=== PATIENT | female | born 1950 | race Caucasian/White ===

== ENCOUNTER → 2016-06-09 | Outpatient (CLI) | payer MEDICARE, BC ==
--- NOTE | 2016-06-09 13:56 | XR ---
EXAMINATION TYPE: XR foot complete RT DATE OF EXAM: 06/09/2016 1:46 PM COMPARISON: NONE HISTORY: Pain There is diffuse osteopenia involving the second through fifth digits. Vascular calcifications are no tere there is soft tissue edema. Cortical thickening and reaction involving the second and third metat arsals. Hammertoe deformities noted. Severe arthropathy involving the DIP and MTP joint and first digit. Large calcaneal spur and soft tis marjorie calcifications are seen. Possibly tiny foreign body overlying the dorsal surface of the distal ph alanx first digit. May represent a tiny calcification rather than foreign body. IMPRESSION: 1. Diffuse soft tissue edema with no definite acute fracture. Severe arthropathy noted.
== END | disposition home or self-care (01) ==
LOC: RADXRMAIN 13:24
PROVIDERS: ATTEND Family Medicine
DX: R60.0 Localized edema (principal); M79.671 Pain in right foot

== ENCOUNTER 2016-07-23 05:51 | Day surgery (SDC) | payer MEDICARE, BC ==
[2016-07-20 12:37] VITALS: BMI 36.5
[2016-07-23] MEDS ORDERED: SODIUM CHLORIDE 0.9% 1,000 ML IV SCH ×2 (06:06→08:15)
[2016-07-23 06:28] VITALS: TEMP 99.1
[2016-07-23 06:41] LABS: Glucose,Whole Blood 127 mg/dL (75-99)
[2016-07-23] MEDS ORDERED: SODIUM CHLORIDE 0.9% 500 ML IV ONE (07:09)
[2016-07-23] MEDS ORDERED: BENZOCAINE SPRAY 100 APPLIC/CAN MUCOUS MEM ONE ×2 (07:35→07:43)
[2016-07-23] MEDS ORDERED: LIDOCAINE 1% INJ 10MG/ML (20 ML MDV) ONE (07:35)
[2016-07-23] MEDS ORDERED: PROPOFOL 10 MG/ML 20 ML VIAL IV ONE (07:35)
[2016-07-23 08:03] VITALS: RESP 16
[2016-07-23 08:24] VITALS: PULSE 64
[2016-07-23] MEDS ORDERED: LISINOPRIL 10 MG TAB PO SCH (09:00)
[2016-07-23] MEDS ORDERED: metFORMIN 850 MG TAB PO SCH (09:00)
[2016-07-23] MEDS ORDERED: FLECAINIDE 50 MG TAB PO SCH (09:00)
[2016-07-23] MEDS ORDERED: EDOXABAN TOSYLATE 60 MG TABLET PO SCH (09:00)
[2016-07-23] MEDS ORDERED: amLODIPine 10 MG TAB PO SCH (09:00)
[2016-07-23] MEDS ORDERED: ATORVASTATIN 40 MG TAB PO SCH (09:00)
[2016-07-23] MEDS ORDERED: METOPROLOL TARTRATE 50 MG TAB PO SCH (09:00)
[2016-07-23] MEDS ORDERED: NON-FORMULARY DRUG (Aspirin Ec 81 MG) PO SCH (09:00)
[2016-07-23 10:05] VITALS: BP 132/70
--- NOTE | 2016-07-23 11:25 | ECHOT ---
DATE OF SERVICE: PROCEDURE: Transesophageal echocardiogram. INDICATION: Evaluation of left atrial appendage. PROCEDURE: After explaining the procedure to the patient, risks and complications, her blood pressure, heart rate, and O2 saturation was monitored. The throat was sprayed with Cetacaine. She received sedation per anesthesia department. The probe was introduced into the esophagus without difficulty. Images were obtained. Following that, the probe was removed. There were no immediate complications. FINDINGS: Left atrial size is dilated. Spontaneous contrast was noted. Left atrial appendage is normal. Right atrial size is dilated. The left ventricular size and systolic function were normal. The aortic valve fibrocalcific change of the aortic cusp with preserved opening. Mitroannular calcification was noted. Tricuspid valve appears to be normal. Descending thoracic aorta revealed mild atherosclerotic changes. No pericardial effusion was noted. Contrast bubble study revealed no shunting across the interatrial septum. Doppler pulse wave and color Doppler were obtained revealed mild mitral with mild to moderate tricuspid regurgitation. Estimated right ventricular systolic pressure was 36 mmHg. There was no shunting across the anterior atrial septum with color Doppler study. CONCLUSION: 1. Biatrial enlargement with spontaneous contrast in the left atrium. 2. Normal appearance of left atrial appendage. 3. Normal left ventricular size and systolic function. 4. Aortic sclerosis with no evidence of stenosis. 5. Mitral annular calcification. 6. Mild mitral with mild to moderate tricuspid regurgitation. 7. Mild atherosclerotic changes of the descending thoracic aorta. MTDD
--- NOTE | 2016-07-23 19:23 | PCN ---
DATE OF PROCEDURE: INDICATION: Atrial fibrillation. PROCEDURE: After explaining the procedure to the patient, including risks and complications, after obtaining transesophageal echocardiogram and obtaining sedated state per Anesthesia Department, a synchronized biphasic 200-joule cardioversion was performed, with restorationism of normal sinus rhythm. There was no immediate complication.
[2016-07-23] MEDS ORDERED: INSULIN GLARGINE HUM REC ANLOG 28 UNIT SQ SCH (21:00)
[2016-07-24] MEDS ORDERED: NON-FORMULARY DRUG (Dulaglutide [Trulicity] 1.5 MG) SQ SCH (08:01)
== END 2016-07-23 10:06 | disposition home or self-care (01) ==
LOC: CATHCVL 05:51
PROVIDERS: ATTEND Internal Medicine Interventional Cardiology
DX: I48.1 Persistent atrial fibrillation (principal); I51.7 Cardiomegaly; I70.0 Atherosclerosis of aorta; I08.1 Rheumatic disorders of both mitral and tricuspid valves; I25.10 Atherosclerotic heart disease of native coronary artery without angina pectoris; Z95.5 Presence of coronary angioplasty implant and graft; I10 Essential (primary) hypertension; E78.2 Mixed hyperlipidemia; E11.9 Type 2 diabetes mellitus without complications; Z79.84 Long term (current) use of oral hypoglycemic drugs; Z79.02 Long term (current) use of antithrombotics/antiplatelets; Z79.82 Long term (current) use of aspirin; Z79.899 Other long term (current) drug therapy; Z88.1 Allergy status to other antibiotic agents; Z91.040 Latex allergy status; Z88.0 Allergy status to penicillin; Z91.09 Other allergy status, other than to drugs and biological substances
CPT/HCPCS: 93312; 93320; 93005; 93325; 92960; J2001; J2704

== ENCOUNTER 2016-07-26 08:42 | Inpatient (IN) | payer MEDICARE, BC ==
[2016-07-26] MEDS ORDERED: SODIUM CHLORIDE 0.9% 500 ML IV STA (09:20)
[2016-07-26] MEDS ORDERED: DILTIAZEM 5 MG/ML 5 ML VIAL IVP STA (09:20)
[2016-07-26 09:49] LABS: INR 1.6 (<1.1); Partial Thromboplastin Time 25.7 sec (22.0-30.0); Prothrombin Time 15.5 sec (9.0-12.0)
--- NOTE | 2016-07-26 09:51 | ED ---
General Adult HPI - General Chief complaint: Arrhythmia/Palpitations Stated complaint: Afib Time Seen by Provider: 07/26/16 09:18 Source: patient, RN notes reviewed, old records reviewed Mode of arrival: wheelchair Limitations: no limitations - History of Present Illness Initial comments: This is a 65-year-old female ER for evaluation of shortness of breath cough congestion. Patient coughing fit last night which caused her to go and A. fib today. Patient has history of A. fib with recent ablation. Patient recently just returned to work today and ended up in this scenario. Patient has had fever at home within coughing and congestion again, no travel history, recent hospitalization again with the ablation but no known sick contacts. - Related Data Home Medications Medication Instructions Recorded Confirmed Metoprolol Tartrate [Lopressor] 50 mg PO TID 11/27/13 07/26/16 amLODIPine [Norvasc] 10 mg PO DAILY 11/27/13 07/26/16 Aspirin EC [Ecotrin Low Dose] 81 mg PO DAILY 02/27/14 07/26/16 Flecainide Acetate 100 mg PO TID 02/27/14 07/26/16 Atorvastatin Calcium [Lipitor] 40 mg PO DAILY 01/23/15 07/26/16 metFORMIN HCL [Metformin HCl] 850 mg PO TID 01/24/15 07/26/16 Lisinopril [Zestril] 20 mg PO BID 02/11/15 07/26/16 Dulaglutide [Trulicity] 1.5 mg SQ TU 07/20/16 07/26/16 Edoxaban Tosylate [Savaysa] 60 mg PO DAILY 07/20/16 07/26/16 Insulin Glargine,Hum.rec.anlog 28 units SQ HS 07/20/16 07/26/16 [Toujeo Solostar] SILVER sulfADIAZINE CREAM 1 applic TOPICAL BID 07/20/16 07/26/16 [Silvadene Cream] Allergies Allergy/AdvReac Type Severity Reaction Status Date / Time cefazolin sodium Allergy Rash/Hives Verified 07/26/16 09:29 [From Leon] Iodinated Contrast Media - Allergy THROAT Verified 07/26/16 09:29 Oral and SWELLING iodine Allergy THROAT Verified 07/26/16 09:29 SWELLING, RASH Latex, Natural Rubber Allergy Rash/Hives Verified 07/26/16 09:29 levofloxacin [From Levaquin] Allergy Rash/Hives Verified 07/26/16 09:29 piperacillin sodium Allergy THROAT Verified 07/26/16 09:29 [From Zosyn] SWELL, RASH shellfish derived Allergy THROAT Verified 07/26/16 09:29 SWELLING, RASH tazobactam sodium Allergy THROAT Verified 07/26/16 09:29 [From Zosyn] SWELL, RASH seafood Allergy throat Uncoded 07/26/16 08:52 swelling Review of Systems ROS Statement: Those systems with pertinent positive or pertinent negative responses have been documented in the HPI. ROS Other: All systems not noted in ROS Statement are negative. Past Medical History Past Medical History: Atrial Fibrillation, Coronary Artery Disease (CAD), Diabetes Mellitus, Eye Disorder, GI Bleed, Hyperlipidemia, Hypertension, Skin Disorder, Vascular Disorder Additional Past Medical History / Comment(s): VARICOSE VEINS, PVD, LEGS DISCOLORED, SORE ON LT INNER CALF. CATARACT LT EYE. RECTAL BLEED 1 WK AGO, FELT D/T BLADDER RX. HAS KIDNEY STONE, NOCTURIA. SINCE AFIB BEGAN, FEELING WEAK, "LEGS ARE RUBBERY." History of Any Multi-Drug Resistant Organisms: None Reported Past Surgical History: Heart Catheterization, Heart Catheterization With Stent, Hysterectomy Additional Past Surgical History / Comment(s): VARICOSE VEIN STRIPPING. LITHOTRIPSY, INEFFECTIVE. Past Anesthesia/Blood Transfusion Reactions: Previous Problems w/ Anesthesia, Motion Sickness, Postoperative Nausea & Vomiting (PONV) Additional Past Anesthesia/Blood Transfusion Reaction / Comment(s): PONV 40 PLUS YEARS AGO, AFTER REMOVAL KIDNEY STONE. Date of Last Stent Placement:: november 2013 Past Psychological History: No Psychological Hx Reported Smoking Status: Never smoker Past Alcohol Use History: None Reported Additional Past Alcohol Use History / Comment(s): Patient is a lifelong nonsmoker. She denies any medical marijuana, marijuana, street drug or alcohol use. She lives at home with her . She has had no recent travel. There are no pets in the home. Past Drug Use History: None Reported - Past Family History Mother Family Medical History: Cancer, Hypertension General Exam Limitations: no limitations General appearance: alert, in no apparent distress, anxious Head exam: Present: atraumatic, normocephalic, normal inspection Eye exam: Present: normal appearance, PERRL, EOMI. Absent: scleral icterus, conjunctival injection, periorbital swelling ENT exam: Present: normal exam, mucous membranes moist Neck exam: Present: normal inspection. Absent: tenderness, meningismus, lymphadenopathy Respiratory exam: Present: normal lung sounds bilaterally. Absent: respiratory distress, wheezes, rales, rhonchi, stridor Cardiovascular Exam: Present: tachycardia, irregular rhythm, normal heart sounds. Absent: systolic murmur, diastolic murmur, rubs, gallop, clicks GI/Abdominal exam: Present: soft, normal bowel sounds. Absent: distended, tenderness, guarding, rebound, rigid Extremities exam: Present: normal inspection, full ROM, normal capillary refill. Absent: tenderness, pedal edema, joint swelling, calf tenderness Back exam: Present: normal inspection Neurological exam: Present: alert, oriented X3, CN II-XII intact Psychiatric exam: Present: normal affect, normal mood Skin exam: Present: warm, dry, intact, normal color. Absent: rash Course Vital Signs 07/26/16 07/26/16 08:48 10:44 Temperature 98.7 F Pulse Rate 118 H 102 H Respiratory 18 18 Rate Blood Pressure 139/71 124/84 O2 Sat by Pulse 95 95 Oximetry - Reevaluation(s) Reevaluation #1: 07/26/16 10:22 Patient is showing improvement in heart rate EKG Findings - EKG Comments: EKG Findings:: EKG shows A. fib with RVR rate 122, NJ 102, QRS or 75 Medical Decision Making - Lab Data Result diagrams: 07/26/16 09:40 Lab Results 07/26/16 07/26/16 07/26/16 Range/Units 09:10 09:40 10:00 PT 15.5 H (9.0-12.0) sec INR 1.6 (<1.1) APTT 25.7 (22.0-30.0) sec Sodium 142 (137-145) mmol/L Potassium 4.8 (3.5-5.1) mmol/L Chloride 105 (98-107) mmol/L Carbon Dioxide 23 (22-30) mmol/L Anion Gap 14 mmol/L BUN 16 (7-17) mg/dL Creatinine 0.88 (0.52-1.04) mg/dL Est GFR (MDRD) Af Amer >60 (>60 ml/min/1.73 sqM) Est GFR (MDRD) Non-Af >60 (>60 ml/min/1.73 sqM) Glucose 122 H (74-99) mg/dL Calcium 8.7 (8.4-10.2) mg/dL Phosphorus 4.1 (2.5-4.5) mg/dL Magnesium 1.1 L (1.6-2.3) mg/dL Total Bilirubin 0.7 (0.2-1.3) mg/dL AST 22 (14-36) U/L ALT 25 (9-52) U/L Alkaline Phosphatase 62 (38-126) U/L Total Protein 7.1 (6.3-8.2) g/dL Albumin 4.1 (3.5-5.0) g/dL TSH 2.180 (0.465-4.680) mIU/L Influenza Type A RNA Not Detected (Not Detectd) Influenza Type B (PCR) Not Detected (Not Detectd) Disposition Clinical Impression: Atrial fibrillation with RVR Disposition: ADMITTED IP TO THIS HOSP Condition: Serious
[2016-07-26] MEDS ORDERED: DILTIAZEM 125 MG in SODIUM CHLORIDE 0.9% 100 ML IV ONE (09:59)
[2016-07-26] MEDS ORDERED: ACETAMINOPHEN IV (For NPO) 1,000 MG in EMPTY BAG 1 BAG IVPB STA (09:59)
[2016-07-26 10:20] LABS: ALT 25 U/L (9-52); AST 22 U/L (14-36); Alkaline Phosphatase 62 U/L (38-126); Anion Gap 14 mmol/L; Blood Urea Nitrogen 16 mg/dL (7-17); Calcium 8.7 mg/dL (8.4-10.2); Carbon Dioxide 23 mmol/L (22-30); Chloride 105 mmol/L (98-107); Glucose 122 mg/dL (74-99); Magnesium 1.1 mg/dL (1.6-2.3); Non-African American GFR(MDRD) >60 (>60 ml/min/1.73 sqM); Phosphorous 4.1 mg/dL (2.5-4.5); Potassium 4.8 mmol/L (3.5-5.1); Sodium 142 mmol/L (137-145); Total Bilirubin 0.7 mg/dL (0.2-1.3); Total Protein 7.1 g/dL (6.3-8.2)
[2016-07-26] MEDS ORDERED: NITROGLYCERIN SL TABS 0.4 MG TAB SUBLINGUAL PRN (10:23)
[2016-07-26] MEDS ORDERED: ASPIRIN 81 MG CHEW PO STA (10:23)
--- NOTE | 2016-07-26 10:52 | XR ---
EXAMINATION TYPE: XR chest 2V DATE OF EXAM: 07/26/2016 10:38 AM COMPARISON: 12/17/2015 HISTORY: 65-year-old female cough, congestion, pain TECHNIQUE: AP and lateral views FINDINGS: Low lung volumes with crowded vascular markings. Heart is borderline enlarged. Diffuse interstitial p rominence similar to prior. However, on the lateral view, there is a small pleural effusion noted. IMPRESSION: Hypoventilatory changes. Small pleural effusion with adjacent atelectasis and/or consolidation seen o n the lateral view.
[2016-07-26 11:13] LABS: Creatine Kinase 59 U/L (30-135)
[2016-07-26 11:26] LABS: Creatine Kinase MB 0.5 ng/mL (0.0-2.4); Troponin I <0.012 ng/mL (0.000-0.034)
[2016-07-26 11:51] LABS: Basophils % (A) 0 %; CH 27.5; CHCM 31.6; Eosinophils # (A) 0.2 k/uL (0-0.7); Eosinophils % (A) 2 %; HCT 36.4 % (34.0-46.0); HDW 2.65; HGB 11.1 gm/dL (11.4-16.0); Hypochromasia Slight; Luc # (Auto) 0.22; Luc % (Auto) 2; Lymphocytes # (A) 1.5 k/uL (1.0-4.8); Lymphocytes % (A) 15 %; MCH 26.7 pg (25.0-35.0); MCHC 30.4 g/dL (31.0-37.0); MCV 87.7 fL (80.0-100.0); Mean Platelet Volume 7.3; Monocytes # (A) 0.6 k/uL (0-1.0); Monocytes % (A) 6 %; Neutrophils # (A) 7.4 k/uL (1.3-7.7); Neutrophils % (A) 75 %; RBC 4.15 m/uL (3.80-5.40); RDW 14.4 % (11.5-15.5); WBC 9.9 k/uL (3.8-10.6); WBC (Perox) 10.32
[2016-07-26 11:51] LABS: Glucose,Whole Blood 84 mg/dL (75-99)
--- NOTE | 2016-07-26 12:02 | P.HPIM ---
History of Present Illness CC 65-year-old female was admitted from physician's office with complained of not feeling well noted to have return to atrial fibrillation with RVR. Patient had a recent cardioversion that was successful. Patient also has history of attempted ablation. Patient admitted for cardiology consultation. On chest x- ray noted pleural effusion versus consolidation pulmonology consult Review of Systems Constitutional: Reports fatigue Respiratory: Reports cough Past Medical History Past Medical History: Atrial Fibrillation, Coronary Artery Disease (CAD), Diabetes Mellitus, Eye Disorder, GI Bleed, Hyperlipidemia, Hypertension, Osteoarthritis (OA), Pneumonia, Skin Disorder, Vascular Disorder Additional Past Medical History / Comment(s): VARICOSE VEINS, PVD, LEGS DISCOLORED, SORE ON LT INNER CALF WHICH PT STATES IS HEALING. LOWER LEG EDEMA BILATERALLY. CATARACT LT EYE. RECTAL BLEED 1 WK AGO, FELT D/T BLADDER RX. HAS KIDNEY STONE, NOCTURIA. SINCE AFIB BEGAN, FEELING WEAK, "LEGS ARE RUBBERY." OA MULTIPLE JOINTS. BRONCHITIS. UTIS. History of Any Multi-Drug Resistant Organisms: None Reported Past Surgical History: Heart Catheterization, Heart Catheterization With Stent, Hysterectomy, Tubal Ligation Additional Past Surgical History / Comment(s): 07/23/16 [place]/CARDIOVERSION. 2004 CARDIAC CATH. 2013 PCI WITH STENT. VARICOSE VEIN STRIPPING. LITHOTRIPSY - INEFFECTIVE. R EYE CATARACT REMOVAL. COLONOSCOPY. Past Anesthesia/Blood Transfusion Reactions: Previous Problems w/ Anesthesia, Motion Sickness, Postoperative Nausea & Vomiting (PONV) Additional Past Anesthesia/Blood Transfusion Reaction / Comment(s): PONV 40 PLUS YEARS AGO, AFTER REMOVAL KIDNEY STONE. Date of Last Stent Placement:: november 2013 Past Psychological History: No Psychological Hx Reported Additional Psychological History / Comment(s): Pt resides with her spouse. She has a cane but is not using it. She drives. Smoking Status: Never smoker Past Alcohol Use History: None Reported Additional Past Alcohol Use History / Comment(s): Patient is a lifelong nonsmoker. She denies any medical marijuana, marijuana, street drug or alcohol use. She lives at home with her . She has had no recent travel. There are no pets in the home. Past Drug Use History: None Reported - Past Family History Father Family Medical History: No Reported History Additional Family Medical History / Comment(s): Father was healthy. He at the age of 74yrs. Mother Family Medical History: Cancer, Hypertension Additional Family Medical History / Comment(s): Mother had bladder cancer. She at the age of 75yrs. Medications and Allergies Home Medications Medication Instructions Recorded Confirmed Type Metoprolol Tartrate [Lopressor] 50 mg PO TID 11/27/13 07/26/16 History amLODIPine [Norvasc] 10 mg PO DAILY 11/27/13 07/26/16 History Aspirin EC [Ecotrin Low Dose] 81 mg PO DAILY 02/27/14 07/26/16 History Flecainide Acetate 100 mg PO TID 02/27/14 07/26/16 History Atorvastatin Calcium [Lipitor] 40 mg PO DAILY 01/23/15 07/26/16 History metFORMIN HCL [Metformin HCl] 850 mg PO TID 01/24/15 07/26/16 History Lisinopril [Zestril] 20 mg PO BID 02/11/15 07/26/16 History Dulaglutide [Trulicity] 1.5 mg SQ TU 07/20/16 07/26/16 History Edoxaban Tosylate [Savaysa] 60 mg PO DAILY 07/20/16 07/26/16 History Insulin Glargine,Hum.rec.anlog 28 units SQ HS 07/20/16 07/26/16 History [Toujeo Solostar] SILVER sulfADIAZINE CREAM 1 applic TOPICAL BID 07/20/16 07/26/16 History [Silvadene Cream] Allergies Allergy/AdvReac Type Severity Reaction Status Date / Time cefazolin sodium Allergy Rash/Hives Verified 07/26/16 09:29 [From Kefzol] Iodinated Contrast Media - Allergy THROAT Verified 07/26/16 09:29 Oral and SWELLING iodine Allergy THROAT Verified 07/26/16 09:29 SWELLING, RASH Latex, Natural Rubber Allergy Rash/Hives Verified 07/26/16 09:29 levofloxacin [From Levaquin] Allergy Rash/Hives Verified 07/26/16 09:29 piperacillin sodium Allergy THROAT Verified 07/26/16 09:29 [From Zosyn] SWELL, RASH shellfish derived Allergy THROAT Verified 07/26/16 09:29 SWELLING, RASH tazobactam sodium Allergy THROAT Verified 07/26/16 09:29 [From Zosyn] SWELL, RASH seafood Allergy throat Uncoded 07/26/16 08:52 swelling Physical Exam Vitals: Vital Signs Pulse Resp BP Pulse Ox 07/26/16 10:44 102 H 18 124/84 95 - Constitutional General appearance: mild distress, obese - EENT Eyes: PERRLA Ears: bilateral: normal - Neck Neck: normal ROM - Respiratory Respiratory: bilateral: diminished - Cardiovascular Rhythm: irregularly irregular - Gastrointestinal General gastrointestinal: soft - Integumentary Noted discoloration of lower extremities Integumentary: pale - Neurologic Neurologic: CNII-XII intact - Musculoskeletal Musculoskeletal: generalized weakness - Psychiatric Psychiatric: A&O x's 3, appropriate affect, intact judgment & insight Results CBC & Chem 7: 07/26/16 09:40 Chest x-ray: report reviewed Thrombosis Risk Factor Assmnt - Choose All That Apply Any of the Below Risk Factors Present?: Yes Each Factor Represents 1 point: Obesity (BMI >25), Varicose veins Other Risk Factors: Yes Each Risk Factor Represents 2 Points: Age 61-74 years Other congenital or acquired thrombophilia - If yes, enter type in comment: No Thrombosis Risk Factor Assessment Total Risk Factor Score: 4 Thrombosis Risk Factor Assessment Level: Moderate Risk Assessment and Plan Plan: Assessment Atrial fibrillation with RVR History of coronary artery disease has history of cardiac cath Diabetes type 2 Hyperlipidemia Peripheral vascular disease Hypo-magnesium being replaced History of GI bleed Pleural effusion versus consolidation with cough Plan Cardiology consultation Pulmonology consultation regarding pleural effusion
[2016-07-26] MEDS: MAGNESIUM SULFATE-D5W PMX 1 GM in DEXTROSE/WATER 1 100ML.BAG IVPB SCH ×4 (12:55→18:57)
[2016-07-26 14:14] VITALS: BMI 34.9
--- NOTE | 2016-07-26 16:30 | P.CNPUL ---
History of Present Illness Consult date: 07/26/16 Reason for consult: dyspnea History of present illness: 65-year-old female patient who was admitted to the hospital because of worsening shortness of breath, atrial fibrillation with rapid vascular response. The patient reported some increased dyspnea cough and chest congestion. The patient had several coughing fits worse overnight and ultimately she was found to be in atrial fibrillation again. Note that the patient underwent recent cardioversion for atrial fibrillation until successful and this was done by Dr. Ralph on 07/23/2016. No reported aspiration at time of the procedure/[place]. The patient denies having any pleurisy. No chest pain. No hemoptysis. No significant sputum production. Fortunately her cough has subsided. The patient is known to have coronary artery disease and the patient has undergone a stent in the mid PDA on 11/29/2013 and history of chronic atrial fibrillation. The patient is known to have a normal ejection fraction based on echocardiogram that was done on 11/24/2015. She had primary treatment strategy for rhythm control regarding the atrial fibrillation and based on that the patient was given flecainide and subsequent cardioversion at was performed by Dr. Ralph on 07/23/2016 pH is also on long-term anticoagulation. The patient is also diabetic maintained on metformin outpatient basis. Other comorbid conditions include hyperlipidemia, hypertension and varicose veins in the lower extremities bilaterally. The patient had a negative influenza screen for influenza A and B during this current hospital stay. The white blood count is not elevated. all of the electrolytesare all within normal limits. She is afebrile. Heart rate is irregular at the rate of 117 max. She is pulse oxing between 90-97% on room air.On a separate note, the patient has typical features of obstructive sleep apnea that needs to be further investigated. She has lost noted a witnessed apneas which could be potentially another trigger for her recurrent paroxysmal atrial fibrillation. Review of Systems review of system was done and the positive findings are old mentionable history of present illness Past Medical History Past Medical History: Atrial Fibrillation, Coronary Artery Disease (CAD), Diabetes Mellitus, Eye Disorder, GI Bleed, Hyperlipidemia, Hypertension, Osteoarthritis (OA), Pneumonia, Skin Disorder, Vascular Disorder Additional Past Medical History / Comment(s): Coronary artery disease with previous stenting of PDA in 2013, diabetes mellitus type 2 maintained on metformin chronic atrial fibrillation, hypertension, hyperlipidemia, varicose veins involving lower extremities, peripheral vascular disease, chronic lower extremities edema, nephrolithiasis, osteoarthritis, cataract involving the left eye, previous history of rectal bleeding, History of Any Multi-Drug Resistant Organisms: None Reported Past Surgical History: Heart Catheterization, Heart Catheterization With Stent, Hysterectomy, Tubal Ligation Additional Past Surgical History / Comment(s): Previous cardiac catheterization was insertion of coronary stent involving the PDA in 2013, [place] with cardioversion, varicose vein stripping, this is sepsis regarding kidney stones, right eye cataract surgery, colonoscopy, tubal ligation, hysterectomy Past Anesthesia/Blood Transfusion Reactions: Previous Problems w/ Anesthesia, Motion Sickness, Postoperative Nausea & Vomiting (PONV) Additional Past Anesthesia/Blood Transfusion Reaction / Comment(s): PONV 40 PLUS YEARS AGO, AFTER REMOVAL KIDNEY STONE. Date of Last Stent Placement:: november 2013 Past Psychological History: No Psychological Hx Reported Additional Psychological History / Comment(s): Pt resides with her spouse. She has a cane but is not using it. She drives. Smoking Status: Never smoker Past Alcohol Use History: None Reported Additional Past Alcohol Use History / Comment(s): Patient is a lifelong nonsmoker. She denies any medical marijuana, marijuana, street drug or alcohol use. She lives at home with her . She has had no recent travel. There are no pets in the home. Past Drug Use History: None Reported - Past Family History Father Family Medical History: No Reported History Additional Family Medical History / Comment(s): Father was healthy. He at the age of 74yrs. Mother Family Medical History: Cancer, Hypertension Additional Family Medical History / Comment(s): Mother had bladder cancer. She at the age of 75yrs. Medications and Allergies Home Medications Medication Instructions Recorded Confirmed Type Metoprolol Tartrate [Lopressor] 50 mg PO TID 11/27/13 07/26/16 History amLODIPine [Norvasc] 10 mg PO DAILY 11/27/13 07/26/16 History Aspirin EC [Ecotrin Low Dose] 81 mg PO DAILY 02/27/14 07/26/16 History Flecainide Acetate 100 mg PO TID 02/27/14 07/26/16 History Atorvastatin Calcium [Lipitor] 40 mg PO DAILY 01/23/15 07/26/16 History metFORMIN HCL [Metformin HCl] 850 mg PO TID 01/24/15 07/26/16 History Lisinopril [Zestril] 20 mg PO BID 02/11/15 07/26/16 History Dulaglutide [Trulicity] 1.5 mg SQ TU 07/20/16 07/26/16 History Edoxaban Tosylate [Savaysa] 60 mg PO DAILY 07/20/16 07/26/16 History Insulin Glargine,Hum.rec.anlog 28 units SQ HS 07/20/16 07/26/16 History [Toujeo Solostar] SILVER sulfADIAZINE CREAM 1 applic TOPICAL BID 07/20/16 07/26/16 History [Silvadene Cream] Allergies Allergy/AdvReac Type Severity Reaction Status Date / Time cefazolin sodium Allergy Rash/Hives Verified 07/26/16 09:29 [From Kefzol] Iodinated Contrast Media - Allergy THROAT Verified 07/26/16 09:29 Oral and SWELLING iodine Allergy THROAT Verified 07/26/16 09:29 SWELLING, RASH Latex, Natural Rubber Allergy Rash/Hives Verified 07/26/16 09:29 levofloxacin [From Levaquin] Allergy Rash/Hives Verified 07/26/16 09:29 piperacillin sodium Allergy THROAT Verified 07/26/16 09:29 [From Zosyn] SWELL, RASH shellfish derived Allergy THROAT Verified 07/26/16 09:29 SWELLING, RASH tazobactam sodium Allergy THROAT Verified 07/26/16 09:29 [From Zosyn] SWELL, RASH seafood Allergy throat Uncoded 07/26/16 08:52 swelling Physical Exam Vitals: Vital Signs Temp Pulse Pulse Resp BP BP Pulse Ox 07/26/16 11:15 97.8 F 117 H 16 132/82 97 07/26/16 10:44 102 H 18 124/84 95 Intake and Output 07/26/16 07/26/16 07/26/16 06:59 14:59 22:59 Other: # Voids 1 Weight 101.151 kg Patient Weight 07/27/16 06:59 Weight 101.151 kg Results - Laboratory Findings CBC and BMP: 07/26/16 09:40 07/26/16 09:40 PT/INR, D-dimer PT 15.5 sec (9.0-12.0) H 07/26/16 09:10 INR 1.6 (<1.1) 07/26/16 09:10 - Diagnostic Findings Chest x-ray: image reviewed Assessment and Plan Plan: Assessment 1 recurrent atrial fibrillation, with rapid ventricular response. The exact trigger is not clear. The patient had some blistered difficulties including cough 48 hours post [place]. The chest x-ray shows some limited infiltration of the left lung base/effusion/atelectasis. No obvious signs of pneumonia. No hypoxemia. Her cough has subsided for now. Patient is on a Cardizem drip at 5 g an hour for rate control if she is also on flecainide. 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 5 diabetes mellitus type 2 6 chronic varicose veins in lower extremities 7 hyperlipidemia 8 hypertension Plan Management of atrial fibrillation per cardiology. Repeat chest x-ray in the morning. No need for antibiotics. Suspect a chemical pneumonitis related to suspected aspiration that could've happened at the time of the [place]. No evidence of septicemia or pneumonia. We'll repeat a chest x-ray in the morning. Outpatient evaluation for obstructive sleep apnea which could be another potential trigger for recurrent atrial fibrillation.the patient's coughing has subsided without any treatment.
[2016-07-26 16:40] LABS: Creatine Kinase 56 U/L (30-135)
[2016-07-26 16:52] LABS: Glucose,Whole Blood 131 mg/dL (75-99)
[2016-07-26 16:54] LABS: Creatine Kinase MB 0.6 ng/mL (0.0-2.4); Troponin I <0.012 ng/mL (0.000-0.034)
[2016-07-26] MEDS: metFORMIN 850 MG TAB PO SCH ×2 (16:55→21:35)
[2016-07-26 20:24] LABS: Glucose,Whole Blood 136 mg/dL (75-99)
[2016-07-26] MEDS: LISINOPRIL 20 MG TAB PO SCH (21:35)
[2016-07-26] MEDS: INSULIN GLARGINE 100 UNIT/ML 10 ML VIAL SQ SCH (21:35)
[2016-07-26 22:46] LABS: Creatine Kinase 64 U/L (30-135)
[2016-07-26 22:57] LABS: Creatine Kinase MB 0.7 ng/mL (0.0-2.4); Troponin I <0.012 ng/mL (0.000-0.034)
[2016-07-27 06:16] LABS: Glucose,Whole Blood 103 mg/dL (75-99)
[2016-07-27 06:33] LABS: Magnesium 1.7 mg/dL (1.6-2.3)
[2016-07-27] MEDS: ATORVASTATIN 40 MG TAB PO SCH (08:50)
[2016-07-27] MEDS: AMIODARONE 200 MG TAB PO SCH ×3 (08:50→21:38)
[2016-07-27] MEDS: metFORMIN 850 MG TAB PO SCH ×3 (08:50→21:38)
[2016-07-27] MEDS: LISINOPRIL 20 MG TAB PO SCH ×2 (08:50→20:29)
[2016-07-27] MEDS: EDOXABAN TOSYLATE 60 MG TABLET PO SCH (08:50)
[2016-07-27] MEDS: ASPIRIN 81 MG CHEW PO SCH (08:51)
[2016-07-27] MEDS: METOPROLOL TARTRATE 50 MG TAB PO SCH ×2 (08:54→20:29)
[2016-07-27] MEDS ORDERED: ASPIRIN 325 MG TAB PO SCH (09:00)
[2016-07-27] MEDS ORDERED: ATENOLOL 50 MG TAB PO SCH (09:00)
--- NOTE | 2016-07-27 09:51 | CONS ---
DATE OF CONSULTATION: Osiris Mendoza is a 65-year-old female. REASON FOR CONSULTATION: Cardiac evaluation and treatment. Patient came in with atrial fibrillation with rapid ventricular rate. Patient is known to have history of atrial fibrillation follows with my associate, Dr. Ralph, in the office. The patient has been doing reasonably well on the flecainide, but patient broke through the flecainide in spite of recent cardioversion on 07/23/2016. Patient converted after [place] and went back into atrial fibrillation, now with symptomatic atrial fibrillation. Patient is on Cardizem at the present time. Flecainide has been discontinued. Will start her on amiodarone 200 mg p.o. t.i.d. and once ventricular rates are controlled will go back and add beta blockers also. Patient was on metoprolol 50 mg p.o. t.i.d., will start with atenolol 50 and if necessary will increase it. Once ventricular rates are controlled, patient may be able to go home and follow with Dr. Ralph and if this treatment fails, will consider AV marck ablation or sending her for atrial fibrillation ablation to [facility], but a couple of attempts done by my associate has been failed here. Patient is a nonsmoker. Patient also known to have atherosclerotic heart disease, status post stenting of PDA done by my associate on November 29, 2013. Patient is also a diabetic, nonsmoker, moderate exogenous obesity, hyperlipidemia, hypertension, history of varicose vein stripping in the past. Patient has one daughter and 2 sons. Patient's past history remarkable for stenting as mentioned above, history of hypertension, hyperlipidemia, history of GI bleed, history of cataract surgery in the left eye, history of rectal bleeds in the past. Patient had a hysterectomy, tubal ligation and stent placement as mentioned above. Patient's medications prior to admission include metoprolol 50 mg p.o. daily; amlodipine 10 mg p.o. daily; aspirin 81 mg p.o. daily; flecainide 100 mg p.o. t.i.d., which has been discontinued; atorvastatin 40 mg p.o. daily; metformin 850 mg p.o. t.i.d., lisinopril 20 mg p.o. b.i.d., Trulicity 1.5 mg subcu daily; and edoxaban, Savaysa 60 mg p.o. daily, insulin glargine 28 units subcu at bedtime, Silvadene cream on affected parts. Allergic to multiple medications includes KEFZOL, IODINATED CONTRAST AGENTS, LATEX, LEVOFLOXACIN, PIPERACILLIN, SHELLFISH, TAZOBACTAM, SEAFOOD. Physical examination revealed well-developed, well-nourished moderately obese female not in acute distress with a pulse rate of 101 irregularly irregular with a blood pressure 136/80 mmHg, respirations 20. HEAD: Normocephalic. HEENT: Unremarkable. NECK: Neck is supple. No thyroid enlargement. No bruit noted. Good carotid upstroke bilaterally. CHEST: Chest is symmetrical. CARDIAC EXAMINATION: Irregular rate and rhythm. S1 and S2. Lungs are clinically clear. Laboratory data is unremarkable. Patient's creatinine of 0.88, BUN of 16. Electrolytes are within normal limits. Potassium 4.8. ASSESSMENT: 1. Atrial fibrillation, fast ventricular rate. Patient had cardioversion on the th of this month and failed therapy on flecainide. Patient is on Cardizem. 2. Hypertension. 3. Diabetes mellitus. 4. Moderate exogenous obesity. 5. Stable coronary artery disease, status post stenting of the PDA in November of 2013. 6. History of obstructive sleep apnea. 7. History of varicose veins. 8. History of hyperlipidemia. RECOMMENDATIONS: Will start her on amiodarone and start her on atenolol 50 daily and if the ventricular rates are controlled, patient may be able to go home and to the adjust ( ) Cordarone to 200 mg p.o. daily after a month or so.
--- NOTE | 2016-07-27 10:12 | XR ---
EXAMINATION TYPE: XR chest 2V DATE OF EXAM: 07/27/2016 9:38 AM COMPARISON: NONE TECHNIQUE: PA and lateral views submitted. HISTORY: A. Fib FINDINGS: The lungs are clear and there is no pneumothorax, pleural effusion, or focal pneumonia. Chronic def ormities involving the rib cage are noted. Biapical pleural thickening. Pulmonary arteries are promin ent. Atherosclerotic change aorta. Arthropathy of the shoulders. IMPRESSION: 1. No acute process.
[2016-07-27 11:12] LABS: Anion Gap 12 mmol/L; Blood Urea Nitrogen 15 mg/dL (7-17); Calcium 8.8 mg/dL (8.4-10.2); Carbon Dioxide 24 mmol/L (22-30); Chloride 107 mmol/L (98-107); Glucose 101 mg/dL (74-99); Non-African American GFR(MDRD) >60 (>60 ml/min/1.73 sqM); Potassium 4.6 mmol/L (3.5-5.1); Sodium 143 mmol/L (137-145)
[2016-07-27 11:32] LABS: Basophils % (A) 1 %; CH 28.3; CHCM 32.4; Eosinophils # (A) 0.3 k/uL (0-0.7); Eosinophils % (A) 5 %; HCT 34.7 % (34.0-46.0); HDW 2.76; HGB 10.8 gm/dL (11.4-16.0); Luc # (Auto) 0.16; Luc % (Auto) 3; Lymphocytes # (A) 1.3 k/uL (1.0-4.8); Lymphocytes % (A) 20 %; MCH 27.4 pg (25.0-35.0); MCHC 31.2 g/dL (31.0-37.0); MCV 87.7 fL (80.0-100.0); Mean Platelet Volume 7.8; Monocytes # (A) 0.4 k/uL (0-1.0); Monocytes % (A) 7 %; Neutrophils # (A) 4.4 k/uL (1.3-7.7); Neutrophils % (A) 65 %; RBC 3.96 m/uL (3.80-5.40); RDW 14.4 % (11.5-15.5); WBC 6.7 k/uL (3.8-10.6); WBC (Perox) 6.95
[2016-07-27 11:33] LABS: Glucose,Whole Blood 112 mg/dL (75-99)
[2016-07-27 13:39] LABS: Hemoglobin A1C 6.9 % (4.2-6.1)
[2016-07-27] MEDS ORDERED: TEMAZEPAM 15 MG CAP PO PRN (14:16)
--- NOTE | 2016-07-27 15:36 | P.PN ---
Subjective 65-year-old female patient who was admitted to the hospital because of worsening shortness of breath, atrial fibrillation with rapid vascular response. The patient reported some increased dyspnea cough and chest congestion. The patient had several coughing fits worse overnight and ultimately she was found to be in atrial fibrillation again. Note that the patient underwent recent cardioversion for atrial fibrillation until successful and this was done by Dr. Ralph on 07/23/2016. No reported aspiration at time of the procedure/[place]. The patient denies having any pleurisy. No chest pain. No hemoptysis. No significant sputum production. Fortunately her cough has subsided. The patient is known to have coronary artery disease and the patient has undergone a stent in the mid PDA on 11/29/2013 and history of chronic atrial fibrillation. The patient is known to have a normal ejection fraction based on echocardiogram that was done on 11/24/2015. She had primary treatment strategy for rhythm control regarding the atrial fibrillation and based on that the patient was given flecainide and subsequent cardioversion at was performed by Dr. Ralph on 07/23/2016 pH is also on long-term anticoagulation. The patient is also diabetic maintained on metformin outpatient basis. Other comorbid conditions include hyperlipidemia, hypertension and varicose veins in the lower extremities bilaterally. The patient had a negative influenza screen for influenza A and B during this current hospital stay. The white blood count is not elevated. all of the electrolytesare all within normal limits. She is afebrile. Heart rate is irregular at the rate of 117 max. She is pulse oxing between 90-97% on room air.On a separate note, the patient has typical features of obstructive sleep apnea that needs to be further investigated. She has lost noted a witnessed apneas which could be potentially another trigger for her recurrent paroxysmal atrial fibrillation. On 07/27/2016, the patient is being seen in follow-up. The patient is doing very well. No respiratory difficulties. No cough and. Chest x-ray is clear from follow-up chest x-ray that was done this morning. She denies having any chest pain. She remains in atrial fibrillation. Rate is controlled. The patient is still on a Cardizem drip at 5 mg an hour. The patient was taken off flecainide and she was switched to amiodarone 200 mg by mouth 3 times a day. Objective - Vital Signs Vital signs: Vital Signs Temp 98.2 F 07/27/16 12:00 Pulse 117 H 07/27/16 12:00 Resp 16 07/27/16 12:00 BP 121/75 07/27/16 12:00 Pulse Ox 94 L 07/27/16 12:00 Intake & Output 07/26/16 07/27/16 07/27/16 18:59 06:59 18:59 Intake Total 118 40 540 Output Total 2200 0 Balance 118 -2160 540 Weight 101.151 kg 118 kg Intake: IV 40 Diltiazem 125 mg In 40 Sodium Chloride 0.9% 100 ml @ 5 MG/HR 5 mls/hr IV .Q24H ONE Rx#:[id number] Oral 118 540 Output: Urine 2200 Stool 0 0 Other: # Voids 1 0 - Exam The patient appeared well nourished and normally developed. Vital signs as documented. Head exam is unremarkable. No scleral icterus or corneal arcus noted. Neck is without jugular venous distension, thyromegaly, or carotid bruits. Carotid upstrokes are brisk bilaterally. Lungs are clear to auscultation and percussion. Cardiac exam reveals the PMI to be normally sized and situated. Rhythm is irregular. First and second heart sounds normal. No murmurs, rubs or gallops. Abdominal exam reveals normal bowel sounds, no masses , no organomegaly and no aortic enlargement. Extremities are nonedematous and both femoral and pedal pulses are normal. - Labs CBC & Chem 7: 07/27/16 05:49 07/27/16 05:49 Labs: Abnormal Lab Results - Last 24 Hours (Table) 07/26/16 07/26/16 07/27/16 Range/Units 16:51 20:21 05:49 Hgb (11.4-16.0) gm/dL Glucose (74-99) mg/dL POC Glucose (mg/dL) 131 H 136 H (75-99) mg/dL Hemoglobin A1c 6.9 H (4.2-6.1) % 07/27/16 07/27/16 07/27/16 Range/Units 05:49 05:49 06:12 Hgb 10.8 L (11.4-16.0) gm/dL Glucose 101 H (74-99) mg/dL POC Glucose (mg/dL) 103 H (75-99) mg/dL Hemoglobin A1c (4.2-6.1) % 07/27/16 Range/Units 11:31 Hgb (11.4-16.0) gm/dL Glucose (74-99) mg/dL POC Glucose (mg/dL) 112 H (75-99) mg/dL Hemoglobin A1c (4.2-6.1) % Assessment and Plan Plan: Assessment 1 recurrent atrial fibrillation, with rapid ventricular response. The exact trigger is not clear. The patient had some blistered difficulties including cough 48 hours post [place]. The chest x-ray shows some limited infiltration of the left lung base/effusion/atelectasis. No obvious signs of pneumonia. No hypoxemia. Her cough has subsided for now. Patient is on a Cardizem drip at 5 g an hour for rate control if she is also on flecainide. 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 The patient is on Cardizem drip at 5 mg an hour. Rate is controlled. No hemodynamic instability. She was placed on amiodarone 200 mg by mouth 3 times a day and she is still on a Cardizem drip at 5 mg an hour and she is on long-term anticoagulation 2 coronary artery disease with previous angioplasty and stenting of PDA, 2013 3 obesity 4 features of obstructive sleep apnea. 5 diabetes mellitus type 2 6 chronic varicose veins in lower extremities 7 hyperlipidemia 8 hypertension Plan Management of atrial fibrillation per cardiology. the patient has no significant coughing today. His chest x-rays clear. Outpatient evaluation for obstructive sleep apnea. Management of atrial fibrillation per cardiology.
[2016-07-27 16:31] LABS: Glucose,Whole Blood 109 mg/dL (75-99)
[2016-07-27] MEDS: INSULIN LISPRO (humaLOG) 300 UNIT/3 ML VIAL SQ SCH ×2 (16:44→20:41)
--- NOTE | 2016-07-27 16:47 | PN ---
DATE OF SERVICE: 07/27/2016 I am covering for Dr. Edgardo Juarez. This 65-year-old woman was admitted with atrial fibrillation, also history of ablation. The patient is on Cardizem. Currently the patient is on amiodarone. The heart rate is slightly high. Cardiology is following the patient. Patient is on Savaysa. No chest pain, no palpitations. No fever. On exam, alert and oriented x3. Pulse 117, blood pressure 121/74, respirations 16, temperature 98.4, pulse ox 94% on room air. HEENT: Conjunctivae normal. NECK: No jugular venous distention. CARDIOVASCULAR: S1 and S2, muffled. Tachycardia. RESPIRATORY: Breath sounds diminished at the bases. No rhonchi, no crackles. ABDOMEN: Soft, nontender. No mass palpable. LEGS: No edema, no swelling. NERVOUS SYSTEM: No focal deficits. LABS: WBC 6, hemoglobin is 10.8, glucose 112. ASSESSMENT: 1. Atrial fibrillation with fast ventricular rate. 2. Anemia, normocytic, anemia of chronic disease possibly. 3. Hypomagnesemia, improved. 4. History of atrial fibrillation and ablation. 5. On Savaysa. 6. History of coronary artery disease. 7. History of diabetes mellitus type 2. 8. History of gastrointestinal bleed. 9. Hypertension. 10. Hyperlipidemia. 11. History of degenerative joint disease. 12. History of pneumonia. 13. History of coronary artery disease, stenting of the PDA. 14. History hyperlipidemia. 15. History of peripheral vascular disease. 16. Nephrolithiasis. 17. History of degenerative joint disease. 18. History of cataracts. 19. History of coronary artery disease and stent. 20. FULL CODE. RECOMMENDATIONS AND DISCUSSION: This 65-year-old woman who presented with multiple complex medical issues, we will monitor the patient closely. Continue the current medications and symptomatic treatment at this time. Closely follow with Cardiology. Repeat labs. Continue with Savaysa. Continue with amiodarone. Further recommendations to follow.
[2016-07-27] MEDS ORDERED: guaiFENesin-DM 100-10MG/5ML 10 ML CUP PO PRN (19:59)
[2016-07-27] MEDS: INSULIN GLARGINE 100 UNIT/ML 10 ML VIAL SQ SCH (20:42)
[2016-07-27 20:43] LABS: Glucose,Whole Blood 111 mg/dL (75-99)
[2016-07-27 21:28] LABS: Appearance,Urine Clear (Clear); Bilirubin,Urine Negative (Negative); Glucose,Urine (UA) Negative (Negative); Ketones,Urine Negative (Negative); Leukocyte Esterase,Urine Small (Negative); Mucus,Urine Rare /hpf; Nitrite,Urine Negative (Negative); Particle Count 1068; Protein,Urine Negative (Negative); RBC,Urine 8 /hpf (0-5); Specific Gravity,Urine 1.009 (1.001-1.035); Squamous Epithelial Cell,Urine 1 /hpf (0-4); UA Billing (MACRO vs. MICRO) MICRO; Urobilinogen,Urine <2.0 mg/dL (<2.0); WBC,Urine 12 /hpf (0-5)
[2016-07-28 05:53] LABS: Glucose,Whole Blood 85 mg/dL (75-99)
[2016-07-28] MEDS: INSULIN LISPRO (humaLOG) 300 UNIT/3 ML VIAL SQ SCH ×4 (05:54→20:36)
[2016-07-28 06:39] LABS: Basophils % (A) 0 %; CH 27.5; CHCM 31.8; Eosinophils # (A) 0.4 k/uL (0-0.7); Eosinophils % (A) 6 %; HCT 34.3 % (34.0-46.0); Hypochromasia Slight; Luc # (Auto) 0.27; Luc % (Auto) 4; Lymphocytes # (A) 1.8 k/uL (1.0-4.8); Lymphocytes % (A) 24 %; MCH 27.9 pg (25.0-35.0); MCHC 32.1 g/dL (31.0-37.0); MCV 86.8 fL (80.0-100.0); Mean Platelet Volume 6.9; Monocytes # (A) 0.5 k/uL (0-1.0); Monocytes % (A) 6 %; Neutrophils # (A) 4.4 k/uL (1.3-7.7); Neutrophils % (A) 60 %; RBC 3.95 m/uL (3.80-5.40); RDW 14.2 % (11.5-15.5); WBC 7.3 k/uL (3.8-10.6); WBC (Perox) 7.99
[2016-07-28 06:50] LABS: Anion Gap 15 mmol/L; Blood Urea Nitrogen 19 mg/dL (7-17); Calcium 9.1 mg/dL (8.4-10.2); Carbon Dioxide 21 mmol/L (22-30); Chloride 107 mmol/L (98-107); Glucose 82 mg/dL (74-99); Non-African American GFR(MDRD) >60 (>60 ml/min/1.73 sqM); Potassium 4.7 mmol/L (3.5-5.1); Sodium 143 mmol/L (137-145)
[2016-07-28] MEDS: AMIODARONE 200 MG TAB PO SCH ×3 (10:15→20:36)
[2016-07-28] MEDS: EDOXABAN TOSYLATE 60 MG TABLET PO SCH (10:15)
[2016-07-28] MEDS: METOPROLOL TARTRATE 50 MG TAB PO SCH ×3 (10:16→20:36)
[2016-07-28] MEDS: metFORMIN 850 MG TAB PO SCH ×3 (10:16→20:36)
[2016-07-28] MEDS: ASPIRIN 81 MG CHEW PO SCH (10:16)
[2016-07-28] MEDS: ATORVASTATIN 40 MG TAB PO SCH (10:16)
[2016-07-28] MEDS: LISINOPRIL 20 MG TAB PO SCH ×2 (10:17→20:36)
--- NOTE | 2016-07-28 11:32 | P.PN ---
Subjective Principal diagnosis: Atrial fibrillation This is a pleasant 65-year-old female patient with a known history of CAD and prior stenting, hypertension, dyslipidemia, possible sleep apnea, and paroxysmal A. fib, presented to the hospital with shortness of breath and was found to be in A. fib with RVR. The patient underwent a cardioversion in the past. Currently, she continues to be in A. fib with slightly uncontrolled heart rate. The heart rate has been between 110 220 bpm. She continues to be on amiodarone 200 mg by mouth twice a day, metoprolol at 50 mg by mouth twice a day, and she continues to be on Cardizem IV at 5 mg per hour. She is on anticoagulation using Savaysa. I'm going to increase the dose of metoprolol to 50 mg by mouth 3 times a day. continue the Cardizem IV to control the heart rate. Continue the amiodarone by mouth. And continue anticoagulation. If she continues to be tachycardic I will consider increasing the dose of metoprolol 100 mg by mouth twice a day. Objective - Vital Signs Vital signs: Vital Signs Temp 97.7 F 07/28/16 08:00 Pulse 125 H 07/28/16 08:00 Resp 16 07/28/16 08:00 BP 123/69 07/28/16 08:00 Pulse Ox 95 07/28/16 08:00 Intake & Output 07/27/16 07/28/16 07/28/16 18:59 06:59 18:59 Intake Total 660 200 Output Total 0 2050 Balance 660 -2050 200 Weight 117.8 kg Intake: Oral 660 200 Output: Urine 0 Stool 0 Other: Voiding Method Toilet # Voids 3 - Constitutional General appearance: Present: no acute distress - Respiratory Respiratory: bilateral: CTA - Cardiovascular Rhythm: irregularly irregular Heart sounds: normal: S1, S2 - Labs CBC & Chem 7: 07/28/16 06:12 07/28/16 06:12 Labs: Abnormal Lab Results - Last 24 Hours (Table) 07/27/16 07/27/16 07/27/16 Range/Units 05:49 05:49 11:31 Hgb 10.8 L (11.4-16.0) gm/dL Carbon Dioxide (22-30) mmol/L BUN (7-17) mg/dL POC Glucose (mg/dL) 112 H (75-99) mg/dL Hemoglobin A1c 6.9 H (4.2-6.1) % Urine Blood (Negative) Ur Leukocyte Esterase (Negative) Urine RBC (0-5) /hpf Urine WBC (0-5) /hpf Urine Mucus (None) /hpf 07/27/16 07/27/16 07/27/16 Range/Units 16:29 20:40 20:41 Hgb (11.4-16.0) gm/dL Carbon Dioxide (22-30) mmol/L BUN (7-17) mg/dL POC Glucose (mg/dL) 109 H 111 H (75-99) mg/dL Hemoglobin A1c (4.2-6.1) % Urine Blood Moderate H (Negative) Ur Leukocyte Esterase Small H (Negative) Urine RBC 8 H (0-5) /hpf Urine WBC 12 H (0-5) /hpf Urine Mucus Rare H (None) /hpf 07/28/16 07/28/16 Range/Units 06:12 06:12 Hgb 11.0 L (11.4-16.0) gm/dL Carbon Dioxide 21 L (22-30) mmol/L BUN 19 H (7-17) mg/dL POC Glucose (mg/dL) (75-99) mg/dL Hemoglobin A1c (4.2-6.1) % Urine Blood (Negative) Ur Leukocyte Esterase (Negative) Urine RBC (0-5) /hpf Urine WBC (0-5) /hpf Urine Mucus (None) /hpf Assessment and Plan Plan: Assessment #1 A. fib with slightly uncontrolled heart rate #2 known CAD with a prior stenting #3 multiple comorbid conditions Plan #1 increase the dose of metoprolol as described above #2 continue following up with the patient
[2016-07-28 11:39] LABS: Glucose,Whole Blood 101 mg/dL (75-99)
[2016-07-28] MEDS: DILTIAZEM 125 MG in SODIUM CHLORIDE 0.9% 100 ML IV SCH (12:11)
--- NOTE | 2016-07-28 12:13 | P.PN ---
Subjective 65-year-old female patient who was admitted to the hospital because of worsening shortness of breath, atrial fibrillation with rapid vascular response. The patient reported some increased dyspnea cough and chest congestion. The patient had several coughing fits worse overnight and ultimately she was found to be in atrial fibrillation again. Note that the patient underwent recent cardioversion for atrial fibrillation until successful and this was done by Dr. Ralph on 07/23/2016. No reported aspiration at time of the procedure/[place]. The patient denies having any pleurisy. No chest pain. No hemoptysis. No significant sputum production. Fortunately her cough has subsided. The patient is known to have coronary artery disease and the patient has undergone a stent in the mid PDA on 11/29/2013 and history of chronic atrial fibrillation. The patient is known to have a normal ejection fraction based on echocardiogram that was done on 11/24/2015. She had primary treatment strategy for rhythm control regarding the atrial fibrillation and based on that the patient was given flecainide and subsequent cardioversion at was performed by Dr. Ralph on 07/23/2016 pH is also on long-term anticoagulation. The patient is also diabetic maintained on metformin outpatient basis. Other comorbid conditions include hyperlipidemia, hypertension and varicose veins in the lower extremities bilaterally. The patient had a negative influenza screen for influenza A and B during this current hospital stay. The white blood count is not elevated. all of the electrolytesare all within normal limits. She is afebrile. Heart rate is irregular at the rate of 117 max. She is pulse oxing between 90-97% on room air.On a separate note, the patient has typical features of obstructive sleep apnea that needs to be further investigated. She has lost noted a witnessed apneas which could be potentially another trigger for her recurrent paroxysmal atrial fibrillation. On 07/27/2016, the patient is being seen in follow-up. The patient is doing very well. No respiratory difficulties. No cough and. Chest x-ray is clear from follow-up chest x-ray that was done this morning. She denies having any chest pain. She remains in atrial fibrillation. Rate is controlled. The patient is still on a Cardizem drip at 5 mg an hour. The patient was taken off flecainide and she was switched to amiodarone 200 mg by mouth 3 times a day. On 07/28/2016 the patient is being seen in follow-up. The patient is still in atrial fibrillation. Cardiology is making adjustments in her medication where she will be placed on a combination of amiodarone 200 mg 3 times a day, Cardizem 5 mg per hour and oral metoprolol 50 mg 3 times a day for rate control. She is not having any major risk for difficulties. No cough or sputum production. No chest Is no wheezing. Objective - Vital Signs Vital signs: Vital Signs Temp 97.7 F 07/28/16 08:00 Pulse 125 H 07/28/16 08:00 Resp 16 07/28/16 08:00 BP 123/69 07/28/16 08:00 Pulse Ox 95 07/28/16 08:00 Intake & Output 07/27/16 07/28/16 07/28/16 18:59 06:59 18:59 Intake Total 660 200 Output Total 0 2050 Balance 660 -2050 200 Weight 117.8 kg Intake: Oral 660 200 Output: Urine 2050 Stool 0 Other: Voiding Method Toilet # Voids 3 - Exam The patient appeared well nourished and normally developed. Vital signs as documented. Head exam is unremarkable. No scleral icterus or corneal arcus noted. Neck is without jugular venous distension, thyromegaly, or carotid bruits. Carotid upstrokes are brisk bilaterally. Lungs are clear to auscultation and percussion. Cardiac exam reveals the PMI to be normally sized and situated. Rhythm is irregular. First and second heart sounds normal. No murmurs, rubs or gallops. Abdominal exam reveals normal bowel sounds, no masses , no organomegaly and no aortic enlargement. Extremities are nonedematous and both femoral and pedal pulses are normal. - Labs CBC & Chem 7: 07/28/16 06:12 07/28/16 06:12 Labs: Abnormal Lab Results - Last 24 Hours (Table) 07/27/16 07/27/16 07/27/16 Range/Units 05:49 16:29 20:40 Hgb (11.4-16.0) gm/dL Carbon Dioxide (22-30) mmol/L BUN (7-17) mg/dL POC Glucose (mg/dL) 109 H (75-99) mg/dL Hemoglobin A1c 6.9 H (4.2-6.1) % Urine Blood Moderate H (Negative) Ur Leukocyte Esterase Small H (Negative) Urine RBC 8 H (0-5) /hpf Urine WBC 12 H (0-5) /hpf Urine Mucus Rare H (None) /hpf 07/27/16 07/28/16 07/28/16 Range/Units 20:41 06:12 06:12 Hgb 11.0 L (11.4-16.0) gm/dL Carbon Dioxide 21 L (22-30) mmol/L BUN 19 H (7-17) mg/dL POC Glucose (mg/dL) 111 H (75-99) mg/dL Hemoglobin A1c (4.2-6.1) % Urine Blood (Negative) Ur Leukocyte Esterase (Negative) Urine RBC (0-5) /hpf Urine WBC (0-5) /hpf Urine Mucus (None) /hpf 07/28/16 Range/Units 11:38 Hgb (11.4-16.0) gm/dL Carbon Dioxide (22-30) mmol/L BUN (7-17) mg/dL POC Glucose (mg/dL) 101 H (75-99) mg/dL Hemoglobin A1c (4.2-6.1) % Urine Blood (Negative) Ur Leukocyte Esterase (Negative) Urine RBC (0-5) /hpf Urine WBC (0-5) /hpf Urine Mucus (None) /hpf Assessment and Plan Plan: Assessment 1 recurrent atrial fibrillation, with rapid ventricular response. The exact trigger is not clear. The patient had some blistered difficulties including cough 48 hours post [place]. The chest x-ray shows some limited infiltration of the left lung base/effusion/atelectasis. No obvious signs of pneumonia. No hypoxemia. Her cough has subsided for now. Patient is on a Cardizem drip at 5 g an hour for rate control if she is also on flecainide. 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 The patient is on Cardizem drip at 5 mg an hour. Rate is controlled. No hemodynamic instability. She was placed on amiodarone 200 mg by mouth 3 times a day and she is still on a Cardizem drip at 5 mg an hour and she is on long-term anticoagulation on 07/28/2016 the patient is still having difficulties in controlling the atrial fibrillation. For that reason she'll be kept on the same medication. The metoprolol dose will be increased to 50 mg by mouth 3 times a day. Oral amiodarone will ultimately cake and for better rate control. Already status remains stable. No cough. No respiratory difficulties. 2 coronary artery disease with previous angioplasty and stenting of PDA, 2013 3 obesity 4 features of obstructive sleep apnea. 5 diabetes mellitus type 2 6 chronic varicose veins in lower extremities 7 hyperlipidemia 8 hypertension Plan Management of atrial fibrillation per cardiology. the patient has no significant coughing today. His chest x-rays clear. Outpatient evaluation for obstructive sleep apnea. Management of atrial fibrillation per cardiology.
[2016-07-28 16:40] LABS: Glucose,Whole Blood 125 mg/dL (75-99)
--- NOTE | 2016-07-28 20:16 | PN ---
DATE OF SERVICE: 07/28/2016 I am covering for Dr. Edgardo Juarez. This 65-year-old woman was admitted with atrial fibrillation. Patient was started on Cardizem drip. At this time, Cardiology and Pulmonology are following the patient closely. Medication being adjusted. No chest pain or palpitations. No fever. On exam, alert and oriented x3. Pulse 120, regular, blood pressure 115/70, respirations 16, temperature 98.0, pulse ox 94% on room air. HEENT: Conjunctivae normal. NECK: No jugular venous distension. CARDIOVASCULAR: S1 and S2 muffled. No S3. No S4. RESPIRATORY: Breath sounds diminished in the bases. ABDOMEN: Soft, nontender. LEGS: No edema. No swelling. NERVOUS SYSTEM: No focal deficits. LABS: Hemoglobin 11. Otherwise, glucose 101. ASSESSMENT: 1. Atrial fibrillation with fast ventricular rate on Cardizem drip. 2. Anemia, normocytic anemia of chronic disease possibly. 3. Hypomagnesemia, improved. 4. History of atrial fibrillation and ablation of small branch of right coronary artery. 5. History of coronary artery disease. 6. History of diabetes mellitus type 2. 7. History of gastrointestinal bleed. 8. Hypertension. 9. Hyperlipidemia. 10. History of degenerative joint disease. 11. History of pneumonia. 12. History of coronary artery disease, stenting of the posterior descending artery. 13. History of hyperlipidemia. 14. History of peripheral vascular disease. 15. Nephrolithiasis. 16. History of degenerative joint disease. 17. History of cataracts. 18. History of coronary artery disease and stent. 19. FULL CODE. RECOMMENDATIONS AND DISCUSSION: In this 62-year-old woman who presented because of multiple complex medical issues, we will monitor the patient closely. Continue the current medications, continue symptomatic treatment. Otherwise, I would recommend continuing to monitor blood sugars closely. Continue with beta blockers and amiodarone and continue with the Cardizem. Prognosis guarded. Further recommendations to follow.
[2016-07-28 20:32] LABS: Glucose,Whole Blood 135 mg/dL (75-99)
[2016-07-28] MEDS: INSULIN GLARGINE 100 UNIT/ML 10 ML VIAL SQ SCH (20:37)
[2016-07-29] MEDS: BENZOCAINE/MENTHOL LOZENG 1 EACH LOZENGE MUCOUS MEM PRN ×2 (00:14→04:31)
[2016-07-29 06:20] LABS: Basophils % (A) 0 %; CH 27.4; CHCM 31.6; Eosinophils # (A) 0.4 k/uL (0-0.7); Eosinophils % (A) 5 %; HCT 34.3 % (34.0-46.0); HDW 2.79; HGB 10.9 gm/dL (11.4-16.0); Hypochromasia Slight; Luc # (Auto) 0.27; Luc % (Auto) 4; Lymphocytes # (A) 1.8 k/uL (1.0-4.8); Lymphocytes % (A) 24 %; MCH 27.6 pg (25.0-35.0); MCHC 31.7 g/dL (31.0-37.0); MCV 87.1 fL (80.0-100.0); Monocytes # (A) 0.6 k/uL (0-1.0); Monocytes % (A) 7 %; Neutrophils # (A) 4.6 k/uL (1.3-7.7); Neutrophils % (A) 60 %; RBC 3.94 m/uL (3.80-5.40); RDW 14.3 % (11.5-15.5); WBC 7.7 k/uL (3.8-10.6); WBC (Perox) 7.93
[2016-07-29] MEDS: INSULIN LISPRO (humaLOG) 300 UNIT/3 ML VIAL SQ SCH ×4 (06:29→22:23)
[2016-07-29 06:35] LABS: Anion Gap 12 mmol/L; Blood Urea Nitrogen 20 mg/dL (7-17); Calcium 9.1 mg/dL (8.4-10.2); Carbon Dioxide 23 mmol/L (22-30); Chloride 108 mmol/L (98-107); Glucose 93 mg/dL (74-99); Non-African American GFR(MDRD) >60 (>60 ml/min/1.73 sqM); Potassium 4.9 mmol/L (3.5-5.1); Sodium 143 mmol/L (137-145)
[2016-07-29 06:54] LABS: Glucose,Whole Blood 86 mg/dL (75-99)
[2016-07-29] MEDS: LISINOPRIL 20 MG TAB PO SCH ×2 (08:35→22:23)
[2016-07-29] MEDS: AMIODARONE 200 MG TAB PO SCH ×3 (08:35→22:26)
[2016-07-29] MEDS: EDOXABAN TOSYLATE 60 MG TABLET PO SCH (08:36)
[2016-07-29] MEDS: ATORVASTATIN 40 MG TAB PO SCH (08:36)
[2016-07-29] MEDS: ASPIRIN 81 MG CHEW PO SCH (08:36)
[2016-07-29] MEDS: metFORMIN 850 MG TAB PO SCH ×3 (08:36→22:27)
[2016-07-29] MEDS: METOPROLOL TARTRATE 50 MG TAB PO SCH ×3 (08:40→22:26)
[2016-07-29 11:35] LABS: Glucose,Whole Blood 109 mg/dL (75-99)
--- NOTE | 2016-07-29 11:48 | P.PN ---
Subjective 65-year-old female patient who was admitted to the hospital because of worsening shortness of breath, atrial fibrillation with rapid vascular response. The patient reported some increased dyspnea cough and chest congestion. The patient had several coughing fits worse overnight and ultimately she was found to be in atrial fibrillation again. Note that the patient underwent recent cardioversion for atrial fibrillation until successful and this was done by Dr. Ralph on 07/23/2016. No reported aspiration at time of the procedure/A[place]. The patient denies having any pleurisy. No chest pain. No hemoptysis. No significant sputum production. Fortunately her cough has subsided. The patient is known to have coronary artery disease and the patient has undergone a stent in the mid PDA on 11/29/2013 and history of chronic atrial fibrillation. The patient is known to have a normal ejection fraction based on echocardiogram that was done on 11/24/2015. She had primary treatment strategy for rhythm control regarding the atrial fibrillation and based on that the patient was given flecainide and subsequent cardioversion at was performed by Dr. Ralph on 07/23/2016 pH is also on long-term anticoagulation. The patient is also diabetic maintained on metformin outpatient basis. Other comorbid conditions include hyperlipidemia, hypertension and varicose veins in the lower extremities bilaterally. The patient had a negative influenza screen for influenza A and B during this current hospital stay. The white blood count is not elevated. all of the electrolytesare all within normal limits. She is afebrile. Heart rate is irregular at the rate of 117 max. She is pulse oxing between 90-97% on room air.On a separate note, the patient has typical features of obstructive sleep apnea that needs to be further investigated. She has lost noted a witnessed apneas which could be potentially another trigger for her recurrent paroxysmal atrial fibrillation. On 07/27/2016, the patient is being seen in follow-up. The patient is doing very well. No respiratory difficulties. No cough and. Chest x-ray is clear from follow-up chest x-ray that was done this morning. She denies having any chest pain. She remains in atrial fibrillation. Rate is controlled. The patient is still on a Cardizem drip at 5 mg an hour. The patient was taken off flecainide and she was switched to amiodarone 200 mg by mouth 3 times a day. On 07/28/2016 the patient is being seen in follow-up. The patient is still in atrial fibrillation. Cardiology is making adjustments in her medication where she will be placed on a combination of amiodarone 200 mg 3 times a day, Cardizem 5 mg per hour and oral metoprolol 50 mg 3 times a day for rate control. She is not having any major risk for difficulties. No cough or sputum production. No chest Is no wheezing. On 07/29/2016 the patient is still having issues with atrial fibrillation and difficulty in controlling the rate. No pulmonary issues whatsoever. No shortness of breath. No cough or sputum production. No chest pain. Objective - Vital Signs Vital signs: Vital Signs Temp 97.0 F L 07/29/16 08:00 Pulse 120 H 07/29/16 08:00 Resp 16 07/29/16 08:00 BP 117/69 07/29/16 08:00 Pulse Ox 95 07/29/16 08:00 Intake & Output 07/28/16 07/29/16 07/29/16 18:59 06:59 18:59 Intake Total 687 240 Output Total 700 Balance 687 -460 Weight 116.3 kg Intake: IV 44 240 Normal Saline 44 240 Intake, IV Titration 43 Amount Diltiazem 125 mg In 43 Sodium Chloride 0.9% 100 ml @ 5 MG/HR 5 mls/hr IV .Q24H [facility] Rx#:[id number] Oral 600 Output: Urine 700 Other: Voiding Method Toilet # Voids 1 1 # Bowel Movements 1 - Exam The patient appeared well nourished and normally developed. Vital signs as documented. Head exam is unremarkable. No scleral icterus or corneal arcus noted. Neck is without jugular venous distension, thyromegaly, or carotid bruits. Carotid upstrokes are brisk bilaterally. Lungs are clear to auscultation and percussion. Cardiac exam reveals the PMI to be normally sized and situated. Rhythm is irregular. First and second heart sounds normal. No murmurs, rubs or gallops. Abdominal exam reveals normal bowel sounds, no masses , no organomegaly and no aortic enlargement. Extremities are nonedematous and both femoral and pedal pulses are normal. - Labs CBC & Chem 7: 07/29/16 05:40 07/29/16 05:40 Labs: Abnormal Lab Results - Last 24 Hours (Table) 03/07/28/16 07/29/16 Range/Units 16:39 20:07 05:40 Hgb 10.9 L (11.4-16.0) gm/dL Chloride (98-107) mmol/L BUN (7-17) mg/dL POC Glucose (mg/dL) 125 H 135 H (75-99) mg/dL 07/29/16 07/29/16 Range/Units 05:40 11:34 Hgb (11.4-16.0) gm/dL Chloride 108 H (98-107) mmol/L BUN 20 H (7-17) mg/dL POC Glucose (mg/dL) 109 H (75-99) mg/dL Assessment and Plan Plan: Assessment 1 recurrent atrial fibrillation, with rapid ventricular response. The exact trigger is not clear. The patient had some blistered difficulties including cough 48 hours post AUST[place]. The chest x-ray shows some limited infiltration of the left lung base/effusion/atelectasis. No obvious signs of pneumonia. No hypoxemia. Her cough has subsided for now. Patient is on a Cardizem drip at 5 g an hour for rate control if she is also on flecainide. 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 The patient is on Cardizem drip at 5 mg an hour. Rate is controlled. No hemodynamic instability. She was placed on amiodarone 200 mg by mouth 3 times a day and she is still on a Cardizem drip at 5 mg an hour and she is on long-term anticoagulation on 07/28/2016 the patient is still having difficulties in controlling the atrial fibrillation. For that reason she'll be kept on the same medication. The metoprolol dose will be increased to 50 mg by mouth 3 times a day. Oral amiodarone will ultimately cake and for better rate control. Already status remains stable. No cough. No respiratory difficulties. On 07/29/2016, the patient is still in atrial fibrillation. Rate control has been difficult to achieve. Cardiology is on the case. No active pulmonary issues for now. 2 coronary artery disease with previous angioplasty and stenting of PDA, 2014 3 obesity 4 features of obstructive sleep apnea. 5 diabetes mellitus type 2 6 chronic varicose veins in lower extremities 7 hyperlipidemia 8 hypertension Plan The plan remains essentially the same. No active pulmonary issues. Management of atrial fibrillation per cardiology. the patient has no significant coughing today. His chest x-rays clear. Outpatient evaluation for obstructive sleep apnea. Management of atrial fibrillation per cardiology.
--- NOTE | 2016-07-29 11:56 | P.PN ---
Subjective Principal diagnosis: Atrial fibrillation This is a pleasant 65-year-old female patient with a known history of CAD and prior stenting, hypertension, dyslipidemia, possible sleep apnea, and paroxysmal A. fib, presented to the hospital with shortness of breath and was found to be in A. fib with RVR. The patient underwent a cardioversion in the past. Currently, she continues to be in A. fib with slightly uncontrolled heart rate. The heart rate has been between 110 220 bpm. She continues to be on amiodarone 200 mg by mouth TID, metoprolol at 50 mg by mouth twice a day, and she continues to be on Cardizem IV at 5 mg per hour. She is on anticoagulation using Savaysa. I'm going to increase the dose of metoprolol to 100 BID. continue the Cardizem IV to control the heart rate. Continue the amiodarone by mouth. And continue anticoagulation. Objective - Vital Signs Vital signs: Vital Signs Temp 97.0 F L 07/29/16 08:00 Pulse 120 H 07/29/16 08:00 Resp 16 07/29/16 08:00 BP 117/69 07/29/16 08:00 Pulse Ox 95 07/29/16 08:00 Intake & Output 07/28/16 07/29/16 07/29/16 18:59 06:59 18:59 Intake Total 687 240 Output Total 700 Balance 687 -460 Weight 116.3 kg Intake: IV 44 240 Normal Saline 44 240 Intake, IV Titration 43 Amount Diltiazem 125 mg In 43 Sodium Chloride 0.9% 100 ml @ 5 MG/HR 5 mls/hr IV .Q24H [facility] Rx#:[id number] Oral 600 Output: Urine 700 Other: Voiding Method Toilet # Voids 1 1 # Bowel Movements 1 - Constitutional General appearance: Present: no acute distress - Respiratory Respiratory: bilateral: CTA - Cardiovascular Rhythm: irregularly irregular Heart sounds: normal: S1, S2 - Labs CBC & Chem 7: 07/29/16 05:40 07/29/16 05:40 Labs: Abnormal Lab Results - Last 24 Hours (Table) 07/28/16 07/28/16 07/29/16 Range/Units 16:39 20:07 05:40 Hgb 10.9 L (11.4-16.0) gm/dL Chloride (98-107) mmol/L BUN (7-17) mg/dL POC Glucose (mg/dL) 125 H 135 H (75-99) mg/dL 07/29/16 07/29/16 Range/Units 05:40 11:34 Hgb (11.4-16.0) gm/dL Chloride 108 H (98-107) mmol/L BUN 20 H (7-17) mg/dL POC Glucose (mg/dL) 109 H (75-99) mg/dL Assessment and Plan Plan: Assessment #1 A. fib with slightly uncontrolled heart rate #2 known CAD with a prior stenting #3 multiple comorbid conditions Plan #1 increase the dose of metoprolol as described above #2 continue following up with the patient
[2016-07-29] MEDS: DILTIAZEM 125 MG in SODIUM CHLORIDE 0.9% 100 ML IV SCH (12:06)
[2016-07-29 16:33] LABS: Glucose,Whole Blood 158 mg/dL (75-99)
[2016-07-29 21:43] LABS: Glucose,Whole Blood 111 mg/dL (75-99)
[2016-07-29] MEDS: INSULIN GLARGINE 100 UNIT/ML 10 ML VIAL SQ SCH (22:23)
[2016-07-30] MEDS: ALPRAZolam 0.25 MG TAB PO PRN ×2 (01:34→22:12)
[2016-07-30] MEDS: BENZOCAINE/MENTHOL LOZENG 1 EACH LOZENGE MUCOUS MEM PRN ×2 (01:34→23:57)
[2016-07-30 06:35] LABS: Glucose,Whole Blood 83 mg/dL (75-99)
[2016-07-30] MEDS: INSULIN LISPRO (humaLOG) 300 UNIT/3 ML VIAL SQ SCH ×4 (06:37→22:10)
[2016-07-30 06:55] LABS: Anion Gap 13 mmol/L; Blood Urea Nitrogen 23 mg/dL (7-17); Calcium 9.1 mg/dL (8.4-10.2); Carbon Dioxide 21 mmol/L (22-30); Chloride 109 mmol/L (98-107); Glucose 85 mg/dL (74-99); Non-African American GFR(MDRD) >60 (>60 ml/min/1.73 sqM); Potassium 4.8 mmol/L (3.5-5.1); Sodium 143 mmol/L (137-145)
[2016-07-30 07:00] LABS: Basophils % (A) 1 %; CH 27.4; CHCM 31.5; Eosinophils # (A) 0.5 k/uL (0-0.7); Eosinophils % (A) 6 %; HCT 36.3 % (34.0-46.0); HDW 2.75; HGB 11.3 gm/dL (11.4-16.0); Hypochromasia Slight; Luc # (Auto) 0.29; Luc % (Auto) 4; Lymphocytes % (A) 27 %; MCH 27.3 pg (25.0-35.0); MCHC 31.2 g/dL (31.0-37.0); MCV 87.5 fL (80.0-100.0); Mean Platelet Volume 6.8; Monocytes # (A) 0.5 k/uL (0-1.0); Monocytes % (A) 7 %; Neutrophils # (A) 4.2 k/uL (1.3-7.7); Neutrophils % (A) 56 %; RBC 4.15 m/uL (3.80-5.40); RDW 14.2 % (11.5-15.5); WBC 7.6 k/uL (3.8-10.6); WBC (Perox) 7.77
[2016-07-30] MEDS: METOPROLOL TARTRATE 50 MG TAB PO SCH ×2 (08:19→22:11)
[2016-07-30] MEDS: AMIODARONE 200 MG TAB PO SCH ×3 (08:19→22:11)
[2016-07-30] MEDS: EDOXABAN TOSYLATE 60 MG TABLET PO SCH (08:20)
[2016-07-30] MEDS: ATORVASTATIN 40 MG TAB PO SCH (08:20)
[2016-07-30] MEDS: ASPIRIN 81 MG CHEW PO SCH (08:20)
[2016-07-30] MEDS: LISINOPRIL 20 MG TAB PO SCH ×2 (08:20→22:11)
[2016-07-30] MEDS: metFORMIN 850 MG TAB PO SCH ×4 (08:21→22:12)
[2016-07-30 12:03] LABS: Glucose,Whole Blood 89 mg/dL (75-99)
[2016-07-30] MEDS: DILTIAZEM 125 MG in SODIUM CHLORIDE 0.9% 100 ML IV SCH (12:16)
--- NOTE | 2016-07-30 13:03 | PN ---
DATE OF SERVICE: 07/29/2016 I am covering for Dr. Edgardo Juarez. This 65-year-old woman was admitted with atrial fibrillation, is being closely monitored. Patient also has anemia, normocytic as well. Patient is seen followed by Dr. Beard and Dr. Coe also. No chest pain, no palpitation, no fever. On exam, alert and oriented x3. Pulse is 126 and regular, blood pressure 130/81, respirations 18, temperature 97.6. Pulse ox 96% on room air. HEENT: Conjunctivae normal. NECK: No jugular venous distension. CARDIOVASCULAR SYSTEM: S1, S2, irregular. RESPIRATION: Breath sounds diminished at the bases. A few scattered rhonchi, no crackles. ABDOMEN: Soft, nontender. EXTREMITIES: Legs no edema, no swelling. NERVOUS SYSTEM: No focal deficits. LABS: WBC 7.7, hemoglobin is 10.9, glucose noted. ASSESSMENT: 1. Atrial fibrillation with fast ventricular rate on Cardizem drip. 2. Anemia, normocytic anemia of chronic disease possibly. 3. Hypomagnesemia, improved. 4. History of atrial fibrillation with ablation. 5. History of coronary artery disease. 6. History of diabetes mellitus type 2. 7. History of gastrointestinal bleed. 8. Hypertension. 9. Hyperlipidemia. 10. History of degenerative joint disease. 11. History of pneumonia. 12. History of coronary artery disease stenting of the posterior descending artery. 13. History of hyperlipidemia. 14. History of peripheral vascular disease. 15. Nephrolithiasis. 16. History of degenerative joint disease. 17. History of cataracts. 18. History of coronary artery disease, stent. 19. FULL CODE. RECOMMENDATION: Recommend to continue with current medications. Continue with the monitoring and symptomatic treatment. Medication adjustment made by Cardiology. Closely monitor. Further recommendations to follow.
--- NOTE | 2016-07-30 13:39 | PN ---
65-year-old lady is admitted to hospital with atrial fibrillation with rapid ventricular rate. She had cardioversion just a week ago, comes back in with atrial fibrillation with rapid ventricular rate. At the time of my evaluation, she is still in atrial fibrillation, Heart rate is around 95 to 105 beats per minute, irregular. Blood pressure is normal. There is no jugular venous distention. Chest is clear to auscultation and percussion. Heart exam reveals first and second heart sounds. No gallop. Exam of the extremities did not reveal any edema. Peripheral pulses are felt. Labs show that the hemoglobin is 11.3. Potassium is 4.8. Creatinine is 0.8. The patient is on amiodarone 200 t.i.d., aspirin, Lipitor 40 daily, intravenous Cardizem, Savaysa, insulin, Zestril and metoprolol 100 b.i.d. and metformin. ASSESSMENT: Chronic atrial fibrillation with poorly controlled ventricular rate. PLAN: Patient will undergo a [place], cardioversion tomorrow.
--- NOTE | 2016-07-30 14:15 | P.PN ---
Subjective Principal diagnosis: Shortness of breath secondary to atrial fibrillation and RVR 65-year-old female patient who was admitted to the hospital because of worsening shortness of breath, atrial fibrillation with rapid ventricular response. The patient reported some increased dyspnea cough and chest congestion. The patient had several coughing fits worse overnight and ultimately she was found to be in atrial fibrillation again. Note that the patient underwent recent cardioversion for atrial fibrillation until successful and this was done by Dr. Ralph on 07/23/2016. No reported aspiration at time of the procedure/[place]. The patient denies having any pleurisy. No chest pain. No hemoptysis. No significant sputum production. Fortunately her cough has subsided. The patient is known to have coronary artery disease and the patient has undergone a stent in the mid PDA on 11/29/2013 and history of chronic atrial fibrillation. The patient is known to have a normal ejection fraction based on echocardiogram that was done on 11/24/2015. She had primary treatment strategy for rhythm control regarding the atrial fibrillation and based on that the patient was given flecainide and subsequent cardioversion at was performed by Dr. Ralph on 07/23/2016 pH is also on long-term anticoagulation. The patient is also diabetic maintained on metformin outpatient basis. Other comorbid conditions include hyperlipidemia, hypertension and varicose veins in the lower extremities bilaterally. The patient had a negative influenza screen for influenza A and B during this current hospital stay. The white blood count is not elevated. all of the electrolytesare all within normal limits. She is afebrile. Heart rate is irregular at the rate of 117 max. She is pulse oxing between 90-97% on room air.On a separate note, the patient has typical features of obstructive sleep apnea that needs to be further investigated. She has lost noted a witnessed apneas which could be potentially another trigger for her recurrent paroxysmal atrial fibrillation. On 07/27/2016, the patient is being seen in follow-up. The patient is doing very well. No respiratory difficulties. No cough and. Chest x-ray is clear from follow-up chest x-ray that was done this morning. She denies having any chest pain. She remains in atrial fibrillation. Rate is controlled. The patient is still on a Cardizem drip at 5 mg an hour. The patient was taken off flecainide and she was switched to amiodarone 200 mg by mouth 3 times a day. On 07/28/2016 the patient is being seen in follow-up. The patient is still in atrial fibrillation. Cardiology is making adjustments in her medication where she will be placed on a combination of amiodarone 200 mg 3 times a day, Cardizem 5 mg per hour and oral metoprolol 50 mg 3 times a day for rate control. She is not having any major risk for difficulties. No cough or sputum production. No chest Is no wheezing. On 07/29/2016 the patient is still having issues with atrial fibrillation and difficulty in controlling the rate. No pulmonary issues whatsoever. No shortness of breath. No cough or sputum production. No chest pain. Reevaluated today on 07/30/2016, patient is doing well from the pulmonary perspective, no cough no wheezing, no shortness of breath at present, however she seems to develop more shortness of breath at the times of her atrial fibrillation with RVR. Presently her rate seems to be well-controlled. Objective - Vital Signs Vital signs: Vital Signs Temp 97.1 F L 07/30/16 11:25 Pulse 94 07/30/16 11:25 Resp 16 07/30/16 11:25 BP 120/78 07/30/16 11:25 Pulse Ox 92 L 07/30/16 11:25 Intake & Output 07/29/16 07/30/16 07/30/16 18:59 06:59 18:59 Intake Total 772.583 80 120.833 Output Total 650 550 Balance 772.583 -570 -429.167 Weight 116.2 kg Intake: IV 181 80 Diltiazem 125 mg In 90 40 Sodium Chloride 0.9% 100 ml @ 5 MG/HR 5 mls/hr IV .Q24H [facility] Rx#:[id number] Normal Saline 91 40 Intake, IV Titration 119.583 120.833 Amount Diltiazem 125 mg In 119.583 120.833 Sodium Chloride 0.9% 100 ml @ 5 MG/HR 5 mls/hr IV .Q24H [facility] Rx#:[id number] Oral 472 Output: Urine 650 550 Other: Voiding Method Toilet Toilet # Voids 2 1 - Exam The patient appeared well nourished and normally developed. Vital signs as documented. Head exam is unremarkable. No scleral icterus or corneal arcus noted. Neck is without jugular venous distension, thyromegaly, or carotid bruits. Carotid upstrokes are brisk bilaterally. Lungs are clear to auscultation and percussion. Cardiac exam reveals the PMI to be normally sized and situated. Rhythm is irregular. First and second heart sounds normal. No murmurs, rubs or gallops. Abdominal exam reveals normal bowel sounds, no masses , no organomegaly and no aortic enlargement. Extremities are nonedematous and both femoral and pedal pulses are normal. - Labs CBC & Chem 7: 07/30/16 06:00 07/30/16 06:00 Labs: Abnormal Lab Results - Last 24 Hours (Table) 07/29/16 07/29/16 07/30/16 Range/Units 16:31 20:58 06:00 Hgb 11.3 L (11.4-16.0) gm/dL Chloride (98-107) mmol/L Carbon Dioxide (22-30) mmol/L BUN (7-17) mg/dL POC Glucose (mg/dL) 158 H 111 H (75-99) mg/dL 07/30/16 Range/Units 06:00 Hgb (11.4-16.0) gm/dL Chloride 109 H (98-107) mmol/L Carbon Dioxide 21 L (22-30) mmol/L BUN 23 H (7-17) mg/dL POC Glucose (mg/dL) (75-99) mg/dL Assessment and Plan Plan: 1 recurrent atrial fibrillation, with rapid ventricular response. The exact trigger is not clear. The patient had some blistered difficulties including cough 48 hours post [place]. The chest x-ray shows some limited infiltration of the left lung base/effusion/atelectasis. No obvious signs of pneumonia. No hypoxemia. Her cough has subsided for now. Patient is on a Cardizem drip at 5 g an hour for rate control if she is also on flecainide. 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 The patient is on Cardizem drip at 5 mg an hour. Rate is controlled. No hemodynamic instability. She was placed on amiodarone 200 mg by mouth 3 times a day and she is still on a Cardizem drip at 5 mg an hour and she is on long-term anticoagulation on 07/28/2016 the patient is still having difficulties in controlling the atrial fibrillation. For that reason she'll be kept on the same medication. The metoprolol dose will be increased to 50 mg by mouth 3 times a day. Oral amiodarone will ultimately cake and for better rate control. Already status remains stable. No cough. No respiratory difficulties. On 07/29/2016, the patient is still in atrial fibrillation. Rate control has been difficult to achieve. Cardiology is on the case. No active pulmonary issues for now. On 07/30/2016, continues to have no active pulmonary issues, hence we will sign off and see the patient on when necessary basis. 2 coronary artery disease with previous angioplasty and stenting of PDA, 2013 3 obesity 4 features of obstructive sleep apnea. 5 diabetes mellitus type 2 6 chronic varicose veins in lower extremities 7 hyperlipidemia 8 hypertension Recommendation: Continue treatment plan as per cardiology, we'll sign off and see on when necessary basis. Time with Patient: Less than 30
[2016-07-30 16:47] LABS: Glucose,Whole Blood 139 mg/dL (75-99)
[2016-07-30 20:55] LABS: Glucose,Whole Blood 104 mg/dL (75-99)
[2016-07-30] MEDS: INSULIN GLARGINE 100 UNIT/ML 10 ML VIAL SQ SCH (22:10)
[2016-07-31 05:43] LABS: Glucose,Whole Blood 104 mg/dL (75-99)
[2016-07-31] MEDS: INSULIN LISPRO (humaLOG) 300 UNIT/3 ML VIAL SQ SCH ×4 (06:04→20:54)
[2016-07-31 06:18] LABS: Basophils % (A) 1 %; CH 27.5; CHCM 31.7; Eosinophils # (A) 0.4 k/uL (0-0.7); Eosinophils % (A) 5 %; HCT 34.9 % (34.0-46.0); HDW 2.81; HGB 10.8 gm/dL (11.4-16.0); Hypochromasia Slight; Luc # (Auto) 0.31; Luc % (Auto) 4; Lymphocytes % (A) 25 %; MCH 27.1 pg (25.0-35.0); MCV 87.2 fL (80.0-100.0); Mean Platelet Volume 7.5; Monocytes # (A) 0.5 k/uL (0-1.0); Monocytes % (A) 6 %; Neutrophils # (A) 4.7 k/uL (1.3-7.7); Neutrophils % (A) 59 %; RDW 14.4 % (11.5-15.5); WBC (Perox) 8.77
[2016-07-31 06:41] LABS: Anion Gap 14 mmol/L; Blood Urea Nitrogen 27 mg/dL (7-17); Calcium 9.3 mg/dL (8.4-10.2); Carbon Dioxide 21 mmol/L (22-30); Chloride 106 mmol/L (98-107); Glucose 109 mg/dL (74-99); Non-African American GFR(MDRD) >60 (>60 ml/min/1.73 sqM); Potassium 5.2 mmol/L (3.5-5.1); Sodium 141 mmol/L (137-145)
[2016-07-31] MEDS ORDERED: NON-FORMULARY DRUG (Dulaglutide [Trulicity] 1.5 MG) SQ SCH (09:00)
[2016-07-31 09:52] LABS: Glucose,Whole Blood 78 mg/dL (75-99)
[2016-07-31] MEDS ORDERED: DEXTROSE 50%-WATER 50 ML SYRINGE IVP ONE (09:52)
[2016-07-31] MEDS: metFORMIN 850 MG TAB PO SCH ×3 (10:03→20:55)
--- NOTE | 2016-07-31 10:08 | PN ---
DATE OF SERVICE: 07/30/2016 I am covering for Dr. Edgardo Juarez. This 65-year-old woman who was admitted with atrial fibrillation and fast ventricular rate is being closely monitored. The patient is on Cardizem drip. Cardiology is planning [place] and possible cardioversion. No chest pain or palpitations. No fever. On exam, alert and oriented x3. Pulse is 118, blood pressure 107/66, respirations 18, temperature 96.9, pulse ox 97% on room air. HEENT: Conjunctivae normal. NECK: No jugular venous distention. CARDIOVASCULAR: S1 and S2, muffled. Tachycardiac. RESPIRATORY: Breath sounds diminished at the bases. No rhonchi, no crackles. ABDOMEN: Soft, nontender. LEGS: No edema, no swelling. NERVOUS SYSTEM: No focal deficits. LABS: WBC 7.6, hemoglobin 11.3. Accu-Cheks are noted. ASSESSMENT: 1. Atrial fibrillation with fast ventricular rate on Cardizem drip. 2. Anemia, normocytic anemia of chronic disease possibly. 3. Hypomagnesemia, improved. 4. History of atrial fibrillation with ablation. 5. History of coronary artery disease. 6. History of diabetes mellitus type 2. 7. History of gastrointestinal bleed. 8. Hypertension, essential. 9. Hyperlipidemia. 10. History of degenerative joint disease. 11. History of pneumonia. 12. History of coronary artery disease, stenting of the posterior descending artery. 13. History of peripheral vascular disease. 14. Nephrolithiasis history. 15. History of degenerative joint disease. 16. History of cataracts. 17. FULL CODE. RECOMMENDATIONS AND DISCUSSION: Recommend continue current medications. Continue with monitoring and symptomatic treatment. Otherwise closely monitor. Guarded prognosis because of multiple complex medical issues. Closely follow with Cardiology. Further recommendations to follow. MTDD
[2016-07-31 11:53] LABS: Glucose,Whole Blood 79 mg/dL (75-99)
[2016-07-31] MEDS ORDERED: PROPOFOL 10 MG/ML 20 ML VIAL IV ONE (12:29)
[2016-07-31] MEDS ORDERED: LIDOCAINE 1% INJ 10MG/ML (20 ML MDV) ONE (12:29)
[2016-07-31] MEDS ORDERED: SODIUM CHLORIDE 0.9% 1,000 ML IV SCH (12:45)
[2016-07-31] MEDS: LISINOPRIL 20 MG TAB PO SCH ×2 (16:40→20:55)
[2016-07-31] MEDS: ASPIRIN 81 MG CHEW PO SCH (16:40)
[2016-07-31] MEDS: AMIODARONE 200 MG TAB PO SCH ×3 (16:40→20:55)
[2016-07-31] MEDS: EDOXABAN TOSYLATE 60 MG TABLET PO SCH (16:40)
[2016-07-31] MEDS: METOPROLOL TARTRATE 50 MG TAB PO SCH ×2 (16:41→20:55)
[2016-07-31] MEDS: ATORVASTATIN 40 MG TAB PO SCH (16:41)
[2016-07-31] MEDS: DILTIAZEM 125 MG in SODIUM CHLORIDE 0.9% 100 ML IV SCH (16:43)
[2016-07-31 16:49] LABS: Glucose,Whole Blood 274 mg/dL (75-99)
[2016-07-31 20:45] LABS: Glucose,Whole Blood 85 mg/dL (75-99)
[2016-07-31] MEDS: INSULIN GLARGINE 100 UNIT/ML 10 ML VIAL SQ SCH (20:54)
[2016-07-31] MEDS: ALPRAZolam 0.25 MG TAB PO PRN (20:55)
--- NOTE | 2016-07-31 22:22 | PN ---
DATE OF SERVICE: 07/31/2016 I am covering for Dr. Juarez. This 65-year-old woman was admitted atrial fibrillation with a fast ventricular rate, was on Cardizem drip and multiple medications. Patient underwent cardioversion by Cardiology today. No chest pain or palpitations. No fever. On exam, alert and oriented x3. Pulse 63 and regular, blood pressure ntd, temperature normal, pulse ox 92% on room air. HEENT: Conjunctivae normal. NECK: No jugular venous distension. CARDIOVASCULAR: S1 and S2 muffled. RESPIRATORY: Breath sounds diminished in the bases. No rhonchi. No crackles. ABDOMEN: Soft, nontender. LEGS: No edema. NERVOUS SYSTEM: No focal deficits. LABS: Hemoglobin 10.8. Potassium 5.2, glucose 104. ASSESSMENT: 1. Atrial condition with fast ventricular rate on Cardizem drip. 2. Anemia, normocytic, anemia of chronic disease possible. 3. Hypomagnesemia, improved. 4. History of atrial fibrillation with ablation. 5. History of coronary artery disease. 6. History of diabetes mellitus type 2. 7. History of gastrointestinal bleed. 8. Hypertension essential. 9. Hyperlipidemia. 10. History of degenerative joint disease. 11. History of pneumonia. 12. History of coronary artery disease and stenting of the posterior descending artery. 13. History of peripheral vascular disease. 14. Nephrolithiasis history. 15. History of cataracts. 16. Mild hyperkalemia. 17. FULL CODE. RECOMMENDATIONS AND DISCUSSION: Recommend to continue current medications, continue with monitoring and symptomatic treatment. Otherwise, recommend repeat labs. Monitor blood sugars closely. Otherwise, follow closely with cardiology, adjust medications. Further recommendations to follow. MTDD
--- NOTE | 2016-08-01 05:22 | CE ---
DATE OF SERVICE: CARDIOVERSION PROCEDURE NOTE INDICATION: Atrial fibrillation. PROCEDURE: After explaining the procedure to the patient as well as the risks and complications, her blood pressure, heart rate, O2 saturation was monitored. She received sedation per anesthesia department. Cardioversion was performed using 200 joules with protestant of normal sinus rhythm. There was no immediate complication.
[2016-08-01 05:44] LABS: Glucose,Whole Blood 94 mg/dL (75-99)
[2016-08-01 06:02] LABS: Basophils % (A) 0 %; CH 27.1; CHCM 31.1; Eosinophils # (A) 0.3 k/uL (0-0.7); Eosinophils % (A) 5 %; HCT 32.9 % (34.0-46.0); HDW 2.71; HGB 10.2 gm/dL (11.4-16.0); Hypochromasia Slight; Luc # (Auto) 0.21; Luc % (Auto) 3; Lymphocytes # (A) 1.6 k/uL (1.0-4.8); Lymphocytes % (A) 23 %; MCH 27.1 pg (25.0-35.0); MCHC 30.9 g/dL (31.0-37.0); MCV 87.8 fL (80.0-100.0); Mean Platelet Volume 6.7; Monocytes # (A) 0.5 k/uL (0-1.0); Monocytes % (A) 7 %; Neutrophils # (A) 4.2 k/uL (1.3-7.7); Neutrophils % (A) 62 %; RBC 3.75 m/uL (3.80-5.40); RDW 14.1 % (11.5-15.5); WBC 6.9 k/uL (3.8-10.6); WBC (Perox) 7.43
[2016-08-01 06:16] LABS: Anion Gap 10 mmol/L; Blood Urea Nitrogen 23 mg/dL (7-17); Calcium 8.9 mg/dL (8.4-10.2); Carbon Dioxide 26 mmol/L (22-30); Chloride 107 mmol/L (98-107); Glucose 99 mg/dL (74-99); Non-African American GFR(MDRD) >60 (>60 ml/min/1.73 sqM); Potassium 4.9 mmol/L (3.5-5.1); Sodium 143 mmol/L (137-145)
[2016-08-01] MEDS: INSULIN LISPRO (humaLOG) 300 UNIT/3 ML VIAL SQ SCH ×2 (06:19→11:49)
[2016-08-01 07:39] VITALS: PULSE 64; RESP 19
[2016-08-01] MEDS: ASPIRIN 81 MG CHEW PO SCH (09:04)
[2016-08-01] MEDS: LISINOPRIL 20 MG TAB PO SCH (09:05)
[2016-08-01] MEDS: metFORMIN 850 MG TAB PO SCH (09:05)
[2016-08-01] MEDS: EDOXABAN TOSYLATE 60 MG TABLET PO SCH (09:05)
[2016-08-01] MEDS: METOPROLOL TARTRATE 50 MG TAB PO SCH (09:05)
[2016-08-01] MEDS: AMIODARONE 200 MG TAB PO SCH (09:06)
[2016-08-01] MEDS: ATORVASTATIN 40 MG TAB PO SCH (09:06)
--- NOTE | 2016-08-01 10:37 | P.PN ---
Subjective Principal diagnosis: Shortness of breath This is a pleasant 65-year-old female with known history of coronary artery disease and prior stent placement, hyperlipidemia, hypertension, sleep apnea, paroxysmal atrial fibrillation who presented to the hospital with symptoms of progressively worsening shortness of breath. On admission here she was found to be in atrial fibrillation with rapid ventricular response. Yesterday patient underwent a transesophageal echocardiographic study as well as elective cardioversion. She continues to be in a normal sinus rhythm this morning. At the time of my examination, she denies any shortness of breath, no palpitations, no chest discomfort. He is on Savaysa for anticoagulation. Blood pressure 124/60 with a heart rate in the 60s this morning. Hemoglobin 10.2, potassium 4.9, BUN 23, creatinine 0.9. Objective - Vital Signs Vital signs: Vital Signs Temp 98.3 F 08/01/16 07:36 Pulse 64 08/01/16 07:36 Resp 19 08/01/16 07:36 BP 125/59 08/01/16 07:36 Pulse Ox 96 08/01/16 07:36 Intake & Output 07/31/16 08/01/16 08/01/16 18:59 06:59 18:59 Intake Total 1260 180 Output Total 400 Balance 860 180 Weight 117.6 kg Intake: Intake, IV Titration 200 Amount Sodium Chloride 0.9% 1, 200 000 ml @ 20 mls/hr IV . [facility] Rx#:[id number] Oral 1060 180 Output: Urine 400 Stool 0 Other: Voiding Method Toilet Toilet Toilet # Voids 3 1 - Exam PHYSICAL EXAMINATION: HEENT:Head is atraumatic, normocephalic. Pupils equal, round. Neck is supple. There is no elevated jugular venous pressure HEART EXAMINATION:Heart S1, S2 normal. No murmur or gallop heard. CHEST EXAMINATION: Lungs are clear to auscultation and precussion. No chest wall tenderness is noted on palpation or with deep breathing. ABDOMEN: Soft, nontender. Bowel sounds are heard. No organomegaly noted. EXTREMITIES:2+ peripheral pulses with no evidence of peripheral edema and no calf tenderness noted. NEUROLOGIC patient is awake, alert and oriented -3. . - Labs CBC & Chem 7: 08/01/16 05:25 08/01/16 05:25 Labs: Abnormal Lab Results - Last 24 Hours (Table) 07/31/16 08/01/16 08/01/16 Range/Units 16:36 05:25 05:25 RBC 3.75 L (3.80-5.40) m/uL Hgb 10.2 L (11.4-16.0) gm/dL Hct 32.9 L (34.0-46.0) % MCHC 30.9 L (31.0-37.0) g/dL BUN 23 H (7-17) mg/dL POC Glucose (mg/dL) 274 H (75-99) mg/dL Assessment and Plan (1) Paroxysmal a-fib Status: Acute (2) Encounter for cardioversion procedure Status: Acute (3) CAD (coronary artery disease) Status: Acute (4) Obesity Status: Acute (5) Sleep apnea Status: Acute (6) Diabetes Status: Acute (7) Hyperlipemia Status: Acute Plan: From cardiology's perspective, patient should be able to be discharged home today. We will make her a follow-up appointment in the office post discharge. She will continue on aspirin 81 mg daily, amiodarone 200 mg 3 times a day, Lipitor 40 mg daily, Savaysa 60 mg daily, Zestril 20 mg twice a day, metoprolol tartrate 100 mg twice a day. DNP note has been reviewed, I agree with a documented findings and plan of care. Patient was seen and examined.
[2016-08-01 11:32] LABS: Glucose,Whole Blood 81 mg/dL (75-99)
[2016-08-01 12:16] VITALS: BP 141/66; TEMP 97.8
[2016-08-01] MEDS ORDERED: AMIODARONE 200 MG TAB PO SCH (21:00)
--- NOTE | 2016-08-02 18:20 | DS ---
DATE OF ADMISSION: 07/26/2016 DATE OF DISCHARGE: 08/01/2016 I am covering for Dr. Edgardo Juarez. FINAL DIAGNOSES: 1. Atrial fibrillation with a fast heart rate status post cardioversion and Cardizem drip. 2. Anemia, normocytic, anemia of chronic disease. 3. Hypomagnesemia improved. 4. History of atrial fibrillation with ablation. 5. History of coronary artery disease. 6. Diabetes mellitus type 2. 7. History of gastrointestinal bleed. 8. Hypertension. 9. Hyperlipidemia. 10. History of degenerative joint disease. 11. History of pneumonia. 12. History of coronary artery disease stenting of the posterior descending artery. 13. History of peripheral vascular disease. 14. History of nephrolithiasis. 15. History of cataracts. 16. Mild hyperkalemia. 17. FULL CODE. DISCHARGE DISPOSITION: The patient will be discharged in a stable condition with guarded prognosis. Cardiology cleared for discharge. HISTORY OF PRESENT ILLNESS: This 65-year-old woman with past medical history of multiple medical problems admitted with atrial fibrillation. The patient was given Cardizem drip and subsequently patient underwent cardioversion by cardiology. The patient improved significantly. The medication adjusted. Cardiology cleared the patient for discharge. Cardioversion with 200 joules. On exam, vital signs are stable. CARDIOVASCULAR SYSTEM: S1, S2 muffled. Irregular. RESPIRATORY: No rhonchi, no crackles. ABDOMEN: Soft, nontender. Nervous system: No focal deficits. Discharge advice and medications: 1. Diet is cardiac. 2. Follow-up with health and safety advisor as mentioned earlier Dr. Ralph 08/03/2016. 3. Follow up with Dr. Juarez 08/01/2016. 4. Medications will be as before as follows: Cordarone 200 mg p.o. b.i.d. and further dose to be adjusted per cardiology. 5. Ecotrin 81 mg p.o. daily. 6. Lipitor 40 mg p.o. daily. 7. Trulicity 1.5 mg subcu Saturday. 8. Savaysa 60 mg p.o. daily. 9. Insulin Lantus 22 units subcu q.h.s. 10. Zestril 20 mg p.o. b.i.d. 11. Lopressor 100 milligrams p.o. daily. 13. Metformin 850 mg t.i.d. Once again, the patient will be discharged in a stable condition with guarded prognosis. JOSED
== END 2016-08-01 13:21 | disposition home or self-care (01) | DRG 309 ==
LOC: EC 08:42 → 6SEL 10:23
PROVIDERS: ADMIT Family Medicine; ATTEND Family Medicine
PROC: 5A2204Z Restoration of Cardiac Rhythm, Single (ICD-10-PCS; principal; 2016-07-31 08:30)
DX: I48.0 Paroxysmal atrial fibrillation (principal); J90 Pleural effusion, not elsewhere classified; J98.11 Atelectasis; E83.42 Hypomagnesemia; E87.5 Hyperkalemia; I10 Essential (primary) hypertension; E11.9 Type 2 diabetes mellitus without complications; D63.8 Anemia in other chronic diseases classified elsewhere; E78.5 Hyperlipidemia, unspecified; E66.09 Other obesity due to excess calories; I48.2 Chronic atrial fibrillation; G47.33 Obstructive sleep apnea (adult) (pediatric); I25.10 Atherosclerotic heart disease of native coronary artery without angina pectoris; I73.9 Peripheral vascular disease, unspecified; I83.90 Asymptomatic varicose veins of unspecified lower extremity; M15.9 Polyosteoarthritis, unspecified; N20.0 Calculus of kidney; H26.9 Unspecified cataract; Z68.41 Body mass index [BMI] 40.0-44.9, adult; Z79.4 Long term (current) use of insulin; Z79.82 Long term (current) use of aspirin; Z79.899 Other long term (current) drug therapy; Z95.5 Presence of coronary angioplasty implant and graft; Z88.1 Allergy status to other antibiotic agents; Z91.041 Radiographic dye allergy status; Z91.040 Latex allergy status; Z88.0 Allergy status to penicillin; Z91.013 Allergy to seafood; Z82.49 Family history of ischemic heart disease and other diseases of the circulatory system
CPT/HCPCS: 36415; 71020; 80048; 80053; 80061; 81001; 82550; 82553; 83036; 83735; 84100; 84443; 84484; 85025; 85610; 85730; 87086; 87502; 92960; 93005; 93312; 93320; 93325; 96374; 96375; 99285

== ENCOUNTER 2016-11-09 11:30 | Inpatient (IN) | payer MEDICARE, BC ==
[2016-11-09] MEDS ORDERED: SODIUM CHLORIDE 0.9% 500 ML IV STA (11:41)
[2016-11-09] MEDS ORDERED: SODIUM CHLORIDE 0.9% 1,000 ML IV STA (11:41)
[2016-11-09] MEDS ORDERED: ONDANSETRON 4 MG/2 ML VIAL IVP STA (11:41)
[2016-11-09] MEDS ORDERED: FAMOTIDINE 20 MG/2 ML VIAL IV STA (11:42)
--- NOTE | 2016-11-09 11:44 | ED ---
General Adult HPI - General Chief complaint: Nausea/Vomiting/Diarrhea Stated complaint: weakness, vomiting Time Seen by Provider: 11/09/16 11:38 Source: patient, family, RN notes reviewed Mode of arrival: wheelchair Limitations: no limitations - History of Present Illness Initial comments: Patient is a pleasant 66-year-old female presenting to the emergency department complaining of nausea and vomiting. Patient and has not felt well and fatigue for several days. Patient has had several episodes of nausea and vomiting since 2 AM. Patient has not been able to tolerate oral intake since that time. No diarrhea. No fever. No abdominal pain. No chest pain. No history of chronic vomiting. - Related Data Home Medications Medication Instructions Recorded Confirmed Aspirin EC [Ecotrin Low Dose] 81 mg PO DAILY 02/27/14 11/09/16 Atorvastatin Calcium [Lipitor] 40 mg PO DAILY 01/23/15 11/09/16 metFORMIN HCL [Metformin HCl] 850 mg PO TID 01/24/15 11/09/16 Lisinopril [Zestril] 20 mg PO BID 02/11/15 11/09/16 Edoxaban Tosylate [Savaysa] 60 mg PO DAILY 07/20/16 11/09/16 Insulin Glargine,Hum.rec.anlog 28 units SQ HS 07/20/16 11/09/16 [Toujeo Solostar] SILVER sulfADIAZINE CREAM 1 applic TOPICAL BID 07/20/16 11/09/16 [Silvadene Cream] Liraglutide [Victoza 2-Ishan] 1.8 mg SQ DAILY 11/09/16 11/09/16 Previous Rx's Medication Instructions Recorded Amiodarone [Cordarone] 200 mg PO BID #60 tab 08/01/16 Metoprolol Tartrate [Lopressor] 100 mg PO BID #120 tab 08/01/16 Allergies Allergy/AdvReac Type Severity Reaction Status Date / Time cefazolin sodium Allergy Rash/Hives Verified 11/09/16 11:53 [From Kefzol] Iodinated Contrast Media - Allergy THROAT Verified 11/09/16 11:53 Oral and SWELLING iodine Allergy THROAT Verified 11/09/16 11:53 SWELLING, RASH Latex, Natural Rubber Allergy Rash/Hives Verified 11/09/16 11:53 levofloxacin [From Levaquin] Allergy Rash/Hives Verified 11/09/16 11:53 piperacillin sodium Allergy THROAT Verified 11/09/16 11:53 [From Zosyn] SWELL, RASH shellfish derived Allergy THROAT Verified 11/09/16 11:53 SWELLING, RASH tazobactam sodium Allergy THROAT Verified 11/09/16 11:53 [From Zosyn] SWELL, RASH seafood Allergy throat Uncoded 11/09/16 11:34 swelling Review of Systems ROS Statement: Those systems with pertinent positive or pertinent negative responses have been documented in the HPI. ROS Other: All systems not noted in ROS Statement are negative. Constitutional: Denies: fever Eyes: Denies: eye pain ENT: Denies: ear pain Respiratory: Denies: cough Cardiovascular: Denies: chest pain Endocrine: Reports: fatigue Gastrointestinal: Reports: nausea, vomiting. Denies: abdominal pain, diarrhea, constipation Genitourinary: Denies: dysuria Musculoskeletal: Denies: back pain Skin: Denies: rash Neurological: Denies: headache Past Medical History Past Medical History: Atrial Fibrillation, Coronary Artery Disease (CAD), Diabetes Mellitus, Eye Disorder, GI Bleed, Hyperlipidemia, Hypertension, Osteoarthritis (OA), Pneumonia, Skin Disorder, Vascular Disorder Additional Past Medical History / Comment(s): Coronary artery disease with previous stenting of PDA in 2013, diabetes mellitus type 2 maintained on metformin chronic atrial fibrillation, hypertension, hyperlipidemia, varicose veins involving lower extremities, peripheral vascular disease, chronic lower extremities edema, nephrolithiasis, osteoarthritis, cataract involving the left eye, previous history of rectal bleeding, History of Any Multi-Drug Resistant Organisms: None Reported Past Surgical History: Heart Catheterization, Heart Catheterization With Stent, Hysterectomy, Tubal Ligation Additional Past Surgical History / Comment(s): Previous cardiac catheterization was insertion of coronary stent involving the PDA in 2013, [place] with cardioversion, varicose vein stripping, this is sepsis regarding kidney stones, right eye cataract surgery, colonoscopy, tubal ligation, hysterectomy Past Anesthesia/Blood Transfusion Reactions: Previous Problems w/ Anesthesia, Motion Sickness, Postoperative Nausea & Vomiting (PONV) Additional Past Anesthesia/Blood Transfusion Reaction / Comment(s): PONV 40 PLUS YEARS AGO, AFTER REMOVAL KIDNEY STONE. Date of Last Stent Placement:: november 2013 Past Psychological History: No Psychological Hx Reported Smoking Status: Never smoker Past Alcohol Use History: None Reported Past Drug Use History: None Reported - Past Family History Father Family Medical History: No Reported History Additional Family Medical History / Comment(s): Father was healthy. He at the age of 74yrs. Mother Family Medical History: Cancer, Hypertension Additional Family Medical History / Comment(s): Mother had bladder cancer. She at the age of 75yrs. General Exam Limitations: no limitations General appearance: alert, in no apparent distress Head exam: Present: atraumatic Eye exam: Present: normal appearance, PERRL ENT exam: Present: normal oropharynx Neck exam: Present: normal inspection Respiratory exam: Present: normal lung sounds bilaterally Cardiovascular Exam: Present: regular rate, normal rhythm GI/Abdominal exam: Present: soft. Absent: tenderness Extremities exam: Present: normal inspection. Absent: pedal edema, calf tenderness Neurological exam: Present: alert Psychiatric exam: Present: normal affect, normal mood Skin exam: Present: normal color Course Vital Signs 11/09/16 11:31 Temperature 98 F Pulse Rate 70 Respiratory 18 Rate Blood Pressure 139/63 O2 Sat by Pulse 99 Oximetry EKG Findings - EKG Comments: EKG Findings:: Normal sinus rhythm 70. [place] 154. QRS 90. QT 428. QTC 462. Normal axis. Normal QRS. Normal ST-T. Medical Decision Making - Medical Decision Making Patient reexamined and resting comfortably in bed. Patient and family updated on results and plan. Case discussed with Dr. Hanson, who will admit for Dr. Juarez. - Lab Data Result diagrams: 11/09/16 12:33 11/09/16 12:33 Lab Results 11/09/16 11/09/16 11/09/16 Range/Units 12:33 12:33 12:33 WBC 10.8 H (3.8-10.6) k/uL RBC 4.02 (3.80-5.40) m/uL Hgb 11.6 (11.4-16.0) gm/dL Hct 33.9 L (34.0-46.0) % MCV 84.2 (80.0-100.0) fL MCH 28.8 (25.0-35.0) pg MCHC 34.2 (31.0-37.0) g/dL RDW 14.6 (11.5-15.5) % Plt Count 216 (150-450) k/uL Neutrophils % 84 % Lymphocytes % 8 % Monocytes % 6 % Eosinophils % 0 % Basophils % 0 % Neutrophils # 9.0 H (1.3-7.7) k/uL Lymphocytes # 0.9 L (1.0-4.8) k/uL Monocytes # 0.7 (0-1.0) k/uL Eosinophils # 0.0 (0-0.7) k/uL Basophils # 0.0 (0-0.2) k/uL Sodium 138 (137-145) mmol/L Potassium 4.2 (3.5-5.1) mmol/L Chloride 102 (98-107) mmol/L Carbon Dioxide 23 (22-30) mmol/L Anion Gap 13 mmol/L BUN 26 H (7-17) mg/dL Creatinine 1.19 H (0.52-1.04) mg/dL Est GFR (MDRD) Af Amer 55 (>60 ml/min/1.73 sqM) Est GFR (MDRD) Non-Af 46 (>60 ml/min/1.73 sqM) Glucose 119 H (74-99) mg/dL Calcium 8.2 L (8.4-10.2) mg/dL Total Bilirubin 0.8 (0.2-1.3) mg/dL AST 210 H (14-36) U/L ALT 171 H (9-52) U/L Alkaline Phosphatase 59 (38-126) U/L Total Creatine Kinase 145 H (30-135) U/L CK-MB (CK-2) 1.2 (0.0-2.4) ng/mL CK-MB (CK-2) Rel Index 0.8 Troponin I 0.047 H* (0.000-0.034) ng/mL Total Protein 6.7 (6.3-8.2) g/dL Albumin 3.8 (3.5-5.0) g/dL Amylase 33 (30-110) U/L Lipase 93 (23-300) U/L Urine Color Urine Appearance (Clear) Urine pH (5.0-8.0) Ur Specific [place] (1.001-1.035) Urine Protein (Negative) Urine Glucose (UA) (Negative) Urine Ketones (Negative) Urine Blood (Negative) Urine Nitrite (Negative) Urine Bilirubin (Negative) Urine Urobilinogen (<2.0) mg/dL Ur Leukocyte Esterase (Negative) Urine RBC (0-5) /hpf Urine WBC (0-5) /hpf Ur Squamous Epith Cells (0-4) /hpf Urine Bacteria (None) /hpf Hyaline Casts (0-2) /lpf Urine Mucus (None) /hpf 11/09/16 Range/Units 14:00 WBC (3.8-10.6) k/uL RBC (3.80-5.40) m/uL Hgb (11.4-16.0) gm/dL Hct (34.0-46.0) % MCV (80.0-100.0) fL MCH (25.0-35.0) pg MCHC (31.0-37.0) g/dL RDW (11.5-15.5) % Plt Count (150-450) k/uL Neutrophils % % Lymphocytes % % Monocytes % % Eosinophils % % Basophils % % Neutrophils # (1.3-7.7) k/uL Lymphocytes # (1.0-4.8) k/uL Monocytes # (0-1.0) k/uL Eosinophils # (0-0.7) k/uL Basophils # (0-0.2) k/uL Sodium (137-145) mmol/L Potassium (3.5-5.1) mmol/L Chloride (98-107) mmol/L Carbon Dioxide (22-30) mmol/L Anion Gap mmol/L BUN (7-17) mg/dL Creatinine (0.52-1.04) mg/dL Est GFR (MDRD) Af Amer (>60 ml/min/1.73 sqM) Est GFR (MDRD) Non-Af (>60 ml/min/1.73 sqM) Glucose (74-99) mg/dL Calcium (8.4-10.2) mg/dL Total Bilirubin (0.2-1.3) mg/dL AST (14-36) U/L ALT (9-52) U/L Alkaline Phosphatase (38-126) U/L Total Creatine Kinase (30-135) U/L CK-MB (CK-2) (0.0-2.4) ng/mL CK-MB (CK-2) Rel Index Troponin I (0.000-0.034) ng/mL Total Protein (6.3-8.2) g/dL Albumin (3.5-5.0) g/dL Amylase (30-110) U/L Lipase (23-300) U/L Urine Color Light [place] Urine Appearance Cloudy H (Clear) Urine pH 5.5 (5.0-8.0) Ur Specific [place] 1.020 (1.001-1.035) Urine Protein 1+ H (Negative) Urine Glucose (UA) Negative (Negative) Urine Ketones Negative (Negative) Urine Blood Trace H (Negative) Urine Nitrite Negative (Negative) Urine Bilirubin 1+ H (Negative) Urine Urobilinogen 2.0 (<2.0) mg/dL Ur Leukocyte Esterase Trace H (Negative) Urine RBC 2 (0-5) /hpf Urine WBC 4 (0-5) /hpf Ur Squamous Epith Cells 1 (0-4) /hpf Urine Bacteria Rare H (None) /hpf Hyaline Casts 37 H (0-2) /lpf Urine Mucus Occasional H (None) /hpf Disposition Clinical Impression: Dehydration, Intractable vomiting Disposition: ADMITTED IP TO THIS [facility] Referrals: Edgardo Juarez MD [Primary Care Provider] - 1-2 days Decision Time: 14:30
[2016-11-09 12:46] LABS: Basophils % (A) 0 %; CH 27.9; CHCM 33.4; Eosinophils % (A) 0 %; HCT 33.9 % (34.0-46.0); HDW 2.55; HGB 11.6 gm/dL (11.4-16.0); Luc # (Auto) 0.15; Luc % (Auto) 1; Lymphocytes # (A) 0.9 k/uL (1.0-4.8); Lymphocytes % (A) 8 %; MCH 28.8 pg (25.0-35.0); MCHC 34.2 g/dL (31.0-37.0); MCV 84.2 fL (80.0-100.0); Mean Platelet Volume 7.7; Monocytes # (A) 0.7 k/uL (0-1.0); Monocytes % (A) 6 %; Neutrophils % (A) 84 %; RBC 4.02 m/uL (3.80-5.40); RDW 14.6 % (11.5-15.5); WBC 10.8 k/uL (3.8-10.6); WBC (Perox) 11.06
[2016-11-09 13:10] LABS: Calcium 8.2 mg/dL (8.4-10.2); Potassium 4.2 mmol/L (3.5-5.1); Total Bilirubin 0.8 mg/dL (0.2-1.3); Total Protein 6.7 g/dL (6.3-8.2)
[2016-11-09 13:22] LABS: Creatine Kinase MB 1.2 ng/mL (0.0-2.4)
[2016-11-09 13:24] LABS: Troponin I 0.047 ng/mL (0.000-0.034)
[2016-11-09 14:19] LABS: Appearance,Urine Cloudy (Clear); Bacteria,Urine Rare /hpf; Bilirubin,Urine 1+ (Negative); Glucose,Urine (UA) Negative (Negative); Ketones,Urine Negative (Negative); Leukocyte Esterase,Urine Trace (Negative); Mucus,Urine Occasional /hpf; Nitrite,Urine Negative (Negative); PH, Urine 5.5 (5.0-8.0); Particle Count 31956; Protein,Urine 1+ (Negative); RBC,Urine 2 /hpf (0-5); Squamous Epithelial Cell,Urine 1 /hpf (0-4); UA Billing (MACRO vs. MICRO) MICRO; WBC,Urine 4 /hpf (0-5)
[2016-11-09] MEDS ORDERED: ONDANSETRON 4 MG/2 ML VIAL IVP PRN (14:30)
[2016-11-09] MEDS ORDERED: NALOXONE 0.4 MG/ML 1 ML VIAL IV PRN (14:30)
[2016-11-09] MEDS ORDERED: ACETAMINOPHEN TAB 500 MG TAB PO STA (14:48)
--- NOTE | 2016-11-09 15:13 | XR ---
EXAMINATION TYPE: XR chest 2V DATE OF EXAM: 11/09/2016 COMPARISON: Prior chest x-ray 07/27/2016 HISTORY: Chest pain and weakness TECHNIQUE: Frontal and lateral views of the chest are obtained. FINDINGS: There is no focal air space opacity, pleural effusion, or pneumothorax seen. The cardiac silhouette size is stable. The patient is rotated. Prominent lung volumes are noted. The osseous stru ctures are stable, old right-sided rib fracture at the eighth rib laterally is healed.. IMPRESSION: Rotated exam. No acute abnormalities evident.
--- NOTE | 2016-11-09 15:33 | XR ---
Abdomen HISTORY: Vomiting and weakness Frontal view of the abdomen submitted on 2 images and correlated to prior exam 12/27/2014 There is no interval change. Lung bases are clear. No pneumoperitoneum or bowel obstruction. There ar e some air-fluid levels without bowel distention. The heart is possibly enlarged. IMPRESSION: Correlate for enteritis, follow-up as indicated. Follow-up as indicated if bowel obstruct ion is suspected clinically. Cardiomegaly.
[2016-11-09 17:21] LABS: Glucose,Whole Blood 88 mg/dL (75-99)
[2016-11-09] MEDS: SODIUM CHLORIDE 0.9% 1,000 ML IV SCH (18:10)
[2016-11-09 19:59] LABS: Creatine Kinase MB 1.7 ng/mL (0.0-2.4); Troponin I 0.031 ng/mL (0.000-0.034)
[2016-11-09] MEDS: PANTOPRAZOLE 40 MG/10 ML VIAL IV SCH (20:33)
[2016-11-09] MEDS: LISINOPRIL 20 MG TAB PO SCH (20:33)
[2016-11-09] MEDS: METOPROLOL TARTRATE 50 MG TAB PO SCH (20:33)
[2016-11-09 20:54] LABS: Glucose,Whole Blood 96 mg/dL (75-99)
[2016-11-09] MEDS ORDERED: AMIODARONE 200 MG TAB PO SCH (21:00)
[2016-11-10 00:49] LABS: Creatine Kinase MB 1.9 ng/mL (0.0-2.4); Troponin I 0.025 ng/mL (0.000-0.034)
[2016-11-10 05:57] LABS: Glucose,Whole Blood 85 mg/dL (75-99)
[2016-11-10 06:25] LABS: Basophils % (A) 0 %; CH 27.9; CHCM 32.9; Eosinophils # (A) 0.1 k/uL (0-0.7); Eosinophils % (A) 1 %; HCT 31.3 % (34.0-46.0); HDW 2.62; HGB 10.5 gm/dL (11.4-16.0); Luc # (Auto) 0.17; Luc % (Auto) 3; Lymphocytes % (A) 16 %; MCH 28.7 pg (25.0-35.0); MCHC 33.7 g/dL (31.0-37.0); MCV 85.1 fL (80.0-100.0); Mean Platelet Volume 7.1; Monocytes # (A) 0.4 k/uL (0-1.0); Monocytes % (A) 7 %; Neutrophils # (A) 4.3 k/uL (1.3-7.7); Neutrophils % (A) 72 %; RBC 3.67 m/uL (3.80-5.40); RDW 14.6 % (11.5-15.5); WBC 5.9 k/uL (3.8-10.6); WBC (Perox) 6.38
[2016-11-10 06:40] LABS: ALT 294 U/L (9-52); AST 428 U/L (14-36); Alkaline Phosphatase 52 U/L (38-126); Anion Gap 11 mmol/L; Blood Urea Nitrogen 22 mg/dL (7-17); Carbon Dioxide 24 mmol/L (22-30); Chloride 106 mmol/L (98-107); Glucose 85 mg/dL (74-99); Non-African American GFR(MDRD) 55 (>60 ml/min/1.73 sqM); Sodium 141 mmol/L (137-145); Total Bilirubin 0.5 mg/dL (0.2-1.3); Total Protein 6.2 g/dL (6.3-8.2)
[2016-11-10 07:52] LABS: Troponin I 0.033 ng/mL (0.000-0.034)
[2016-11-10] MEDS: SODIUM CHLORIDE 0.9% 1,000 ML IV SCH ×5 (08:09→18:07)
[2016-11-10] MEDS ORDERED: PANTOPRAZOLE 40 MG/10 ML VIAL IV SCH (09:00)
[2016-11-10] MEDS ORDERED: NON-FORMULARY DRUG (Liraglutide [Victoza 2-Pak] 1.8 MG) SQ SCH (09:00)
--- NOTE | 2016-11-10 09:11 | P.CRDCN ---
History of Present Illness Consult date: 11/10/16 Reason for Consult (text): elevated troponin Chief complaint: fatigue, N/V, diarrhea History of present illness: 6-year-old female who follows with Dr. Ralph in the office. She has a known history of coronary artery disease, prior stenting about 3 years ago, diabetes, hyperlipidemia, hypertension and paroxysmal atrial fibrillation. She presented to the emergency department with complaints of earache, body aches as well as nausea and vomiting. Patient developed diarrhea shortly after presenting to the hospital. She has not been able to tolerate oral intake for the last several days. She denies fever, chest discomfort, palpitations or syncope. She has had some dizziness and lightheadedness as well as abdominal cramping. Upon presentation EKG showed normal sinus rhythm without any acute ST-T wave abnormalities. Chest x-ray showed no acute process abdominal x-ray to possible enteritis. Laboratory values showed a BUN of 26 and creatinine 1.19. Her liver enzymes are elevated with a normal amylase and lipase. Troponin levels were drawn and came in to be 0.047, 0.031 and 0.025. Upon examination this morning, patient is not feeling much better. Not currently vomiting however still feels nauseous with diarrhea and only taking sips of clear fluids. She has been on amiodarone 200 mg by mouth twice a day at home and this has been placed on hold. She is currently maintaining sinus rhythm. Past Medical History Past Medical History: Atrial Fibrillation, Coronary Artery Disease (CAD), Diabetes Mellitus, Eye Disorder, GI Bleed, Hyperlipidemia, Hypertension, Osteoarthritis (OA), Pneumonia, Skin Disorder, Vascular Disorder Additional Past Medical History / Comment(s): Coronary artery disease with previous stenting of PDA in 2013, diabetes mellitus type 2 maintained on metformin, chronic atrial fibrillation, hypertension, hyperlipidemia, varicose veins involving lower extremities, peripheral vascular disease, chronic lower extremities edema, nephrolithiasis, osteoarthritis, cataract involving the left eye.uti, nocturia"gets up about 6 times a night",bronchitis. History of Any Multi-Drug Resistant Organisms: None Reported Past Surgical History: Heart Catheterization, Heart Catheterization With Stent, Hysterectomy, Tubal Ligation Additional Past Surgical History / Comment(s): Previous cardiac catheterization was insertion of coronary stent involving the PDA in 2013, [place] with cardioversion, varicose vein stripping, this is sepsis regarding kidney stones, right eye cataract surgery, colonoscopy, tubal ligation, hysterectomy Past Anesthesia/Blood Transfusion Reactions: Previous Problems w/ Anesthesia, Motion Sickness, Postoperative Nausea & Vomiting (PONV) Additional Past Anesthesia/Blood Transfusion Reaction / Comment(s): PONV 40 PLUS YEARS AGO, AFTER REMOVAL KIDNEY STONE. Date of Last Stent Placement:: november 2013 Smoking Status: Never smoker - Past Family History Father Family Medical History: No Reported History Additional Family Medical History / Comment(s): Father was healthy. He at the age of 74yrs. Mother Family Medical History: Cancer, Hypertension Additional Family Medical History / Comment(s): Mother had bladder cancer. She at the age of 75yrs. Medications and Allergies Home Medications Medication Instructions Recorded Confirmed Type Aspirin EC [Ecotrin Low Dose] 81 mg PO DAILY 02/27/14 11/09/16 History Atorvastatin Calcium [Lipitor] 40 mg PO DAILY 01/23/15 11/09/16 History metFORMIN HCL [Metformin HCl] 850 mg PO TID 01/24/15 11/09/16 History Lisinopril [Zestril] 20 mg PO BID 02/11/15 11/09/16 History Edoxaban Tosylate [Savaysa] 60 mg PO DAILY 07/20/16 11/09/16 History Insulin Glargine,Hum.rec.anlog 28 units SQ HS 07/20/16 11/09/16 History [Toujeo Solostar] SILVER sulfADIAZINE CREAM 1 applic TOPICAL BID 07/20/16 11/09/16 History [Silvadene Cream] Liraglutide [Victoza 2-Ishan] 1.8 mg SQ DAILY 11/09/16 11/09/16 History Allergies Allergy/AdvReac Type Severity Reaction Status Date / Time cefazolin sodium Allergy Rash/Hives Verified 11/09/16 11:53 [From Kefzol] Iodinated Contrast Media - Allergy THROAT Verified 11/09/16 11:53 Oral and SWELLING iodine Allergy THROAT Verified 11/09/16 11:53 SWELLING, RASH Latex, Natural Rubber Allergy Rash/Hives Verified 11/09/16 11:53 levofloxacin [From Levaquin] Allergy Rash/Hives Verified 11/09/16 11:53 piperacillin sodium Allergy THROAT Verified 11/09/16 11:53 [From Zosyn] SWELL, RASH shellfish derived Allergy THROAT Verified 11/09/16 11:53 SWELLING, RASH tazobactam sodium Allergy THROAT Verified 11/09/16 11:53 [From Zosyn] SWELL, RASH seafood Allergy throat Uncoded 11/09/16 11:34 swelling Physical Exam Vitals: Vital Signs Temp Pulse Pulse Resp BP BP Pulse Ox 11/10/16 04:13 68 16 118/67 95 11/10/16 00:00 58 L 17 113/61 94 L 11/09/16 21:00 98 F 61 16 116/62 95 11/09/16 16:30 98.9 F 65 16 122/57 92 L 11/09/16 15:44 99.4 F 68 16 127/64 94 L 11/09/16 14:45 114/49 95 11/09/16 14:43 99.7 F H 69 16 98/54 95 11/09/16 11:31 98 F 70 18 139/63 99 Intake and Output 11/09/16 11/10/16 11/10/16 22:59 06:59 14:59 Intake Total 500 Balance 500 Intake: Intake, IV Titration 500 Amount Sodium Chloride 0.9% 1, 500 000 ml @ 100 mls/hr IV . Q10H [facility] Rx#:[id number] Other: Voiding Method Toilet Toilet # Voids 3 Weight 113.1 kg PHYSICAL EXAMINATION: HEENT: Head is atraumatic, normocephalic. Pupils equal, round. Neck is supple. There is no elevated jugular venous pressure. HEART EXAMINATION: Heart sounds regular, S1 and S2 normal with a systolic murmur. CHEST EXAMINATION: Lungs are clear to auscultation and precussion. No chest wall tenderness is noted on palpation or with deep breathing. ABDOMEN: Soft, nontender. Bowel sounds are heard. No organomegaly noted. EXTREMITIES: 2+ peripheral pulses with changes of venous stasis. NEUROLOGIC patient is awake, alert and oriented x3. . Results 11/10/16 05:42 11/10/16 05:42 Cardiac Enzymes 11/09/16 11/09/16 11/09/16 Range/Units 12:33 12:33 18:54 AST 210 H (14-36) U/L CK-MB (CK-2) 1.2 1.7 (0.0-2.4) ng/mL Troponin I 0.047 H* 0.031 (0.000-0.034) ng/mL 11/09/16 11/10/16 11/10/16 Range/Units 23:48 05:42 05:42 AST 428 H (14-36) U/L CK-MB (CK-2) 1.9 2.0 (0.0-2.4) ng/mL Troponin I 0.025 0.033 (0.000-0.034) ng/mL CBC 11/09/16 11/10/16 Range/Units 12:33 05:42 WBC 10.8 H 5.9 (3.8-10.6) k/uL RBC 4.02 3.67 L (3.80-5.40) m/uL Hgb 11.6 10.5 L (11.4-16.0) gm/dL Hct 33.9 L 31.3 L (34.0-46.0) % Plt Count 216 202 (150-450) k/uL Comprehensive Metabolic Panel 11/09/16 11/10/16 Range/Units 12:33 05:42 Sodium 138 141 (137-145) mmol/L Potassium 4.2 4.0 (3.5-5.1) mmol/L Chloride 102 106 (98-107) mmol/L Carbon Dioxide 23 24 (22-30) mmol/L BUN 26 H 22 H (7-17) mg/dL Creatinine 1.19 H 1.01 (0.52-1.04) mg/dL Glucose 119 H 85 (74-99) mg/dL Calcium 8.2 L 8.0 L (8.4-10.2) mg/dL AST 210 H 428 H (14-36) U/L ALT 171 H 294 H (9-52) U/L Alkaline Phosphatase 59 52 (38-126) U/L Total Protein 6.7 6.2 L (6.3-8.2) g/dL Albumin 3.8 3.3 L (3.5-5.0) g/dL Current Medications Generic Name Dose Route Start Last Admin Trade Name Freq PRN Reason Stop Dose Admin Edoxaban 60 mg 11/10/16 09:00 Savaysa PO DAILY [facility]HA Sodium Chloride 1,000 mls @ 110 mls/hr 11/09/16 14:30 11/10/16 08:09 Saline 0.9% IV Not Given .[id number] [facility] Lisinopril 20 mg 11/09/16 21:00 11/09/16 20:33 Zestril PO 20 mg BID LA[place]ISHA Administration Metoprolol Tartrate 100 mg 11/09/16 21:00 11/09/16 20:33 Lopressor PO 100 mg BID LA[place]ISHA Administration Naloxone HCl 0.2 mg 11/09/16 14:30 Narcan IV Q2M PRN Opioid Reversal Non-Formulary Medication 1.8 mg 11/10/16 09:00 Liraglutide [Victoza 2-Ishan] SQ DAILY [facility] Ondansetron HCl 4 mg 11/09/16 14:30 Zofran IVP Q8HR PRN Nausea And Vomiting Pantoprazole Sodium 40 mg 11/09/16 21:00 11/09/16 20:33 Protonix IV 40 mg BID LA[facility]ISHA Administration Silver Sulfadiazine 1 applic 11/09/16 21:00 11/09/16 20:34 Silvadene Cream TOPICAL 1 applic BID LA[place]ISHA Administration Intake and Output 11/09/16 11/10/16 11/10/16 22:59 06:59 14:59 Intake Total 500 Balance 500 Intake: Intake, IV Titration 500 Amount Sodium Chloride 0.9% 1, 500 000 ml @ 100 mls/hr IV . Q10H [facility] Rx#:[id number] Other: Voiding Method Toilet Toilet # Voids 3 Weight 113.1 kg 11/10/16 05:42 11/10/16 05:42 EKG Interpretations (text) Normal sinus rhythm without significant ST-T wave abnormalities Assessment and Plan Plan: Assessment and plan #1 dehydration due to nausea, vomiting and diarrhea #2 history of coronary artery disease with prior stenting to the mid PDA 2013 #3 atrial fibrillation, paroxysmal, currently maintaining sinus rhythm #4 hypertension #5 hyperlipidemia #6 minimal troponin leak, likely secondary to acute kidney injury with dehydration From a cardiac standpoint, continue to hold amiodarone. Recent [place] from July shows normal LV systolic function. We'll start the patient on some IV fluids. We will continue to monitor patient's renal function and liver enzymes. We will obtain abdominal ultrasound to assess for gall bladder disease. Further recommendations to follow. [employer] note has been reviewed, I agree with a documented findings and plan of care. Patient was seen and examined.
[2016-11-10] MEDS: PANTOPRAZOLE 40 MG/10 ML VIAL IV SCH ×2 (10:10→20:41)
[2016-11-10] MEDS: LISINOPRIL 20 MG TAB PO SCH ×2 (10:11→20:41)
[2016-11-10] MEDS: EDOXABAN TOSYLATE 60 MG TABLET PO SCH (10:11)
[2016-11-10] MEDS: METOPROLOL TARTRATE 50 MG TAB PO SCH ×2 (10:11→20:41)
--- NOTE | 2016-11-10 12:04 | US ---
EXAMINATION TYPE: US gallbladder DATE OF EXAM: 11/10/2016 COMPARISON: NONE CLINICAL HISTORY: abd pain, elevated LFT. vomiting EXAM MEASUREMENTS: Liver Length: 18.3 cm Gallbladder Wall: 0.2 cm CBD: 0.5 cm Right Kidney: 11.8 x 6.5 x 5.3 cm Pancreas: not visualized due to midline bowel gas Liver: measures 18.3 cm Gallbladder: No stones seen Evidence for sonographic Savage's sign: No CBD: wnl Right Kidney: No hydronephrosis or masses seen IMPRESSION: 1. Normal right upper quadrant ultrasound.
[2016-11-10 12:09] LABS: Glucose,Whole Blood 114 mg/dL (75-99)
[2016-11-10] MEDS ORDERED: HYDROmorphone 1 MG/ML 1 ML SYRINGE IVP PRN (15:24)
[2016-11-10 17:25] LABS: Glucose,Whole Blood 98 mg/dL (75-99)
[2016-11-10] MEDS: HYDROcodone/APAP 5-325MG 1 EACH TAB PO PRN (18:30)
[2016-11-10 20:33] LABS: Glucose,Whole Blood 90 mg/dL (75-99)
[2016-11-11] MEDS: HYDROcodone/APAP 5-325MG 1 EACH TAB PO PRN ×2 (00:06→08:55)
[2016-11-11] MEDS: SODIUM CHLORIDE 0.9% 1,000 ML IV SCH ×2 (06:03→20:56)
[2016-11-11 06:11] LABS: Glucose,Whole Blood 99 mg/dL (75-99)
[2016-11-11 07:20] LABS: ALT 349 U/L (9-52); AST 400 U/L (14-36); Alkaline Phosphatase 52 U/L (38-126); Anion Gap 10 mmol/L; Blood Urea Nitrogen 14 mg/dL (7-17); Calcium 8.4 mg/dL (8.4-10.2); Carbon Dioxide 26 mmol/L (22-30); Chloride 107 mmol/L (98-107); Glucose 97 mg/dL (74-99); Non-African American GFR(MDRD) >60 (>60 ml/min/1.73 sqM); Potassium 3.9 mmol/L (3.5-5.1); Sodium 143 mmol/L (137-145); Total Bilirubin 0.5 mg/dL (0.2-1.3); Total Protein 6.1 g/dL (6.3-8.2)
[2016-11-11 07:39] LABS: Aty Lym Flag Slight; CH 27.2; CHCM 32.2; HCT 30.8 % (34.0-46.0); HDW 2.72; HGB 10.3 gm/dL (11.4-16.0); MCH 28.5 pg (25.0-35.0); MCHC 33.6 g/dL (31.0-37.0); Mean Platelet Volume 7.2; RBC 3.62 m/uL (3.80-5.40); RDW 14.3 % (11.5-15.5); WBC 4.9 k/uL (3.8-10.6); WBC (Perox) 4.89
[2016-11-11 07:57] LABS: Add Differential Manual Differential
[2016-11-11 08:01] LABS: Nucleated Red Blood Cells 0 /100 WBC (0-0); Polychromasia Present; Total Cells Counted 100
[2016-11-11] MEDS: LISINOPRIL 20 MG TAB PO SCH ×2 (08:56→21:06)
[2016-11-11] MEDS: METOPROLOL TARTRATE 50 MG TAB PO SCH ×2 (08:56→21:06)
[2016-11-11] MEDS: EDOXABAN TOSYLATE 60 MG TABLET PO SCH (08:56)
[2016-11-11] MEDS: PANTOPRAZOLE 40 MG/10 ML VIAL IV SCH ×2 (08:56→21:06)
[2016-11-11 11:51] LABS: Glucose,Whole Blood 148 mg/dL (75-99)
--- NOTE | 2016-11-11 16:53 | P.PN ---
Subjective Principal diagnosis: Abdominal pain and liver enzyme elevations This patient was admitted with abdominal pain. There is evidence of liver enzyme elevations. Ultrasound of the abdomen did not reveal any acute cholecystitis. Liver enzymes are gradually improving. Patient is off Lipitor and also amiodarone. May get a consult from GI. Continue to monitor the liver functions. She denies any chest pain or shortness of breath Objective - Vital Signs Vital signs: Vital Signs Temp 97.2 F L 11/11/16 04:00 Pulse 57 L 11/11/16 12:00 Resp 18 11/11/16 12:00 BP 111/56 11/11/16 12:00 Pulse Ox 96 11/11/16 12:00 Intake & Output 11/10/16 11/11/16 11/11/16 18:59 06:59 18:59 Intake Total 730 180 Output Total 740 350 Balance -10 -170 Weight 112.1 kg Intake: Intake, IV Titration 10 Amount Sodium Chloride 0.9% 1, 10 000 ml @ 75 mls/hr IV . [id number] [facility] Rx#:[id number] Oral 720 180 Output: Urine 740 350 Other: Voiding Method Toilet # Voids 1 2 # Bowel Movements 2 - Exam GENERAL EXAM: Patient is alert and oriented and doesn't appear to be in any acute distress HEENT: Normocephalic. Normal reaction of pupils, equal size, normal range of extraocular motion. No erythema or exudates in the throat. NECK: No masses, no nuchal rigidity. CHEST: No chest wall deformity. LUNGS: Equal air entry with no crackles or wheeze.. HEART: S1 and S2 normal with no audible mumurs or gallops. Regular rhythm, f SKIN: No rashes CENTRAL NERVOUS SYSTEM: No focal deficits. EXTREMITIES: No cyanosis, clubbing or edema. - Labs CBC & Chem 7: 11/11/16 05:58 11/11/16 05:58 Labs: Abnormal Lab Results - Last 24 Hours (Table) 11/11/16 11/11/16 11/11/16 Range/Units 05:58 05:58 11:42 RBC 3.62 L (3.80-5.40) m/uL Hgb 10.3 L (11.4-16.0) gm/dL Hct 30.8 L (34.0-46.0) % POC Glucose (mg/dL) 148 H (75-99) mg/dL AST 400 H (14-36) U/L ALT 349 H (9-52) U/L Total Protein 6.1 L (6.3-8.2) g/dL Albumin 3.3 L (3.5-5.0) g/dL Assessment and Plan (1) Abnormal liver enzymes Status: Acute (2) CAD (coronary artery disease) Status: Acute (3) Diabetes Status: Acute (4) Hyperlipemia Status: Acute (5) Paroxysmal a-fib Status: Acute Plan: Patient is overall feeling better. Her liver enzymes are coming down. It is not clear if a liver enzymes related to either Lipitor or amiodarone. Both are held. GI consult may be obtained. Follow-up liver enzymes. Further recommendation to follow
[2016-11-11 16:55] LABS: Glucose,Whole Blood 141 mg/dL (75-99)
[2016-11-11 20:41] LABS: Glucose,Whole Blood 167 mg/dL (75-99)
[2016-11-11] MEDS ORDERED: INSULIN GLARGINE 100 UNIT/ML 10 ML VIAL SQ SCH (22:45)
[2016-11-12 06:22] LABS: ALT 245 U/L (9-52); AST 164 U/L (14-36); Alkaline Phosphatase 52 U/L (38-126); Anion Gap 12 mmol/L; Blood Urea Nitrogen 18 mg/dL (7-17); Calcium 8.3 mg/dL (8.4-10.2); Carbon Dioxide 25 mmol/L (22-30); Chloride 108 mmol/L (98-107); Glucose 135 mg/dL (74-99); Non-African American GFR(MDRD) >60 (>60 ml/min/1.73 sqM); Potassium 4.1 mmol/L (3.5-5.1); Sodium 145 mmol/L (137-145); Total Bilirubin 0.4 mg/dL (0.2-1.3); Total Protein 6.1 g/dL (6.3-8.2)
[2016-11-12 06:24] LABS: Glucose,Whole Blood 142 mg/dL (75-99)
[2016-11-12] MEDS: metFORMIN 850 MG TAB PO SCH ×2 (06:26→12:05)
[2016-11-12 06:27] LABS: Aty Lym Flag Slight; CH 27.4; CHCM 32.3; HCT 32.5 % (34.0-46.0); HDW 2.76; HGB 10.7 gm/dL (11.4-16.0); MCHC 32.8 g/dL (31.0-37.0); MCV 85.4 fL (80.0-100.0); RBC 3.81 m/uL (3.80-5.40); RDW 14.4 % (11.5-15.5); WBC (Perox) 5.55
[2016-11-12 06:32] VITALS: RESP 18
[2016-11-12 06:54] LABS: Add Differential Manual Differential
[2016-11-12 06:58] LABS: Nucleated Red Blood Cells 0 /100 WBC (0-0); Total Cells Counted 100
[2016-11-12 06:59] LABS: Manual Review Performed
[2016-11-12] MEDS: METOPROLOL TARTRATE 50 MG TAB PO SCH (08:14)
[2016-11-12] MEDS: PANTOPRAZOLE 40 MG/10 ML VIAL IV SCH (08:14)
[2016-11-12] MEDS: LISINOPRIL 20 MG TAB PO SCH (08:15)
[2016-11-12] MEDS: SODIUM CHLORIDE 0.9% 1,000 ML IV SCH (08:15)
[2016-11-12] MEDS: EDOXABAN TOSYLATE 60 MG TABLET PO SCH (08:15)
[2016-11-12 08:23] VITALS: TEMP 97.2
[2016-11-12 11:23] VITALS: BP 152/74; PULSE 84
[2016-11-12 12:06] LABS: Glucose,Whole Blood 134 mg/dL (75-99)
--- NOTE | 2016-11-12 12:50 | P.PN ---
Subjective Principal diagnosis: Nausea vomiting and diarrhea This is a 66-year-old female who follows with Dr. Ralph in the office. She has a known history of coronary artery disease, prior stenting about 3 years ago , diabetes, hyperlipidemia, hypertension and paroxysmal atrial fibrillation. She presented to the emergency department with complaints of earache, body aches as well as nausea and vomiting. Patient developed diarrhea shortly after presenting to the hospital. She has not been able to tolerate oral intake for the last several days. She denies fever, chest discomfort, palpitations or syncope. She has had some dizziness and lightheadedness as well as abdominal cramping. Upon presentation EKG showed normal sinus rhythm without any acute ST -T wave abnormalities. Her liver enzymes are elevated with a normal amylase and lipase. Amiodarone and Lipitor have been placed on hold, she continues to be in normal sinus rhythm. Patient will be discharged home today to follow-up with Dr. Ralph in the office in one week. Lft's are improving today. Objective - Vital Signs Vital signs: Vital Signs Temp 97.2 F L 11/12/16 08:00 Pulse 84 11/12/16 11:22 Resp 18 11/12/16 11:22 BP 152/74 11/12/16 11:22 Pulse Ox 94 L 11/12/16 11:22 Intake & Output 11/11/16 11/12/16 11/12/16 18:59 06:59 18:59 Intake Total 540 420 180 Output Total 350 Balance 190 420 180 Weight 112.3 kg Intake: Intake, IV Titration 0 Amount Sodium Chloride 0.9% 1, 0 000 ml @ 75 mls/hr IV . [id number] [facility] Rx#:[id number] Oral 540 420 180 Output: Urine 350 Other: Voiding Method Toilet # Voids 1 # Bowel Movements 1 - Exam PHYSICAL EXAMINATION: HEENT: Head is atraumatic, normocephalic. Pupils equal, round. Neck is supple. There is no elevated jugular venous pressure. HEART EXAMINATION: Heart sounds regular, S1 and S2 normal with a systolic murmur. CHEST EXAMINATION: Lungs are clear to auscultation and precussion. No chest wall tenderness is noted on palpation or with deep breathing. ABDOMEN: Soft, nontender. Bowel sounds are heard. No organomegaly noted. EXTREMITIES: 2+ peripheral pulses with changes of venous stasis. NEUROLOGIC patient is awake, alert and oriented x3. . - Labs CBC & Chem 7: 11/12/16 05:33 11/12/16 05:30 Labs: Abnormal Lab Results - Last 24 Hours (Table) 11/11/16 11/11/16 11/12/16 Range/Units 16:49 20:39 05:30 Hgb (11.4-16.0) gm/dL Hct (34.0-46.0) % Chloride 108 H (98-107) mmol/L BUN 18 H (7-17) mg/dL Glucose 135 H (74-99) mg/dL POC Glucose (mg/dL) 141 H 167 H (75-99) mg/dL Calcium 8.3 L (8.4-10.2) mg/dL AST 164 H (14-36) U/L ALT 245 H (9-52) U/L Total Protein 6.1 L (6.3-8.2) g/dL Albumin 3.4 L (3.5-5.0) g/dL 11/12/16 11/12/16 11/12/16 Range/Units 05:33 06:22 11:59 Hgb 10.7 L (11.4-16.0) gm/dL Hct 32.5 L (34.0-46.0) % Chloride (98-107) mmol/L BUN (7-17) mg/dL Glucose (74-99) mg/dL POC Glucose (mg/dL) 142 H 134 H (75-99) mg/dL Calcium (8.4-10.2) mg/dL AST (14-36) U/L ALT (9-52) U/L Total Protein (6.3-8.2) g/dL Albumin (3.5-5.0) g/dL Microbiology - Last 24 Hours (Table) 11/12/16 08:05 Stool Culture - Preliminary Stool Assessment and Plan Plan: Assessment and Plan Plan: Assessment and plan #1 dehydration due to nausea, vomiting and diarrhea #2 history of coronary artery disease with prior stenting to the mid PDA 2013 #3 atrial fibrillation, paroxysmal, currently maintaining sinus rhythm #4 hypertension #5 hyperlipidemia #6 minimal troponin leak, likely secondary to acute kidney injury with dehydration From a cardiac standpoint, continue to hold amiodarone and Lipitor. Recent [place] from July shows normal LV systolic function. We will make her a follow-up appointment to see Dr. Ralph in the office in one week. [employer] note has been reviewed, I agree with a documented findings and plan of care. Patient was seen and examined.
== END 2016-11-12 14:03 | disposition home or self-care (01) | DRG 641 ==
LOC: EC 11:30 → 6SEL 14:32
PROVIDERS: ADMIT Hospitalist; ATTEND Hospitalist
DX: E86.0 Dehydration (principal); N17.9 Acute kidney failure, unspecified; I48.0 Paroxysmal atrial fibrillation; R74.8 Abnormal levels of other serum enzymes; R10.9 Unspecified abdominal pain; R11.2 Nausea with vomiting, unspecified; R19.7 Diarrhea, unspecified; I10 Essential (primary) hypertension; E11.9 Type 2 diabetes mellitus without complications; E78.5 Hyperlipidemia, unspecified; I25.10 Atherosclerotic heart disease of native coronary artery without angina pectoris; M19.91 Primary osteoarthritis, unspecified site; I83.90 Asymptomatic varicose veins of unspecified lower extremity; Z95.5 Presence of coronary angioplasty implant and graft; Z90.710 Acquired absence of both cervix and uterus; Z87.442 Personal history of urinary calculi; Z98.41 Cataract extraction status, right eye; Z79.01 Long term (current) use of anticoagulants; Z79.84 Long term (current) use of oral hypoglycemic drugs; Z79.82 Long term (current) use of aspirin; Z79.4 Long term (current) use of insulin; Z79.899 Other long term (current) drug therapy; Z88.1 Allergy status to other antibiotic agents; Z91.041 Radiographic dye allergy status; Z91.040 Latex allergy status; Z91.013 Allergy to seafood
CPT/HCPCS: 36415; 71020; 74000; 76705; 80053; 81001; 82150; 82550; 82553; 83690; 84443; 84484; 85025; 87045; 87046; 89055; 93005; 96361; 96374; 96375; 99285

== ENCOUNTER 2016-12-24 08:17 | Inpatient (IN) | payer MEDICARE, BC ==
[~2016-12-24 08:17] MED LIST: DEXAMETHASONE SOD PHOSPHATE 10 MG/ML 1 ML VIAL IV ONE; HYDROmorphone 1 MG/ML 1 ML SYRINGE IVP PRN; LACTATED RINGERS 1,000 ML IV SCH; ONDANSETRON 4 MG/2 ML VIAL IVP ONE; SODIUM CHLORIDE 0.9% 1,000 ML IV SCH
[2016-12-24 08:54] LABS: Glucose,Whole Blood 292 mg/dL (75-99)
[2016-12-24] MEDS ORDERED: INSULIN LISPRO (humaLOG) 300 UNIT/3 ML VIAL SQ ONE (09:00)
[2016-12-24] MEDS ORDERED: LIDOCAINE 1% INJ 10MG/ML (20 ML MDV) ONE (10:30)
[2016-12-24] MEDS ORDERED: SUCCINYLCHOLINE CHLORIDE 100 MG/5 ML SYR IV ONE (10:30)
[2016-12-24] MEDS ORDERED: PROPOFOL 10 MG/ML 20 ML VIAL IV ONE (10:30)
[2016-12-24] MEDS ORDERED: fentaNYL (PF) 50 MCG/ML 2 ML AMP ONE (10:30)
[2016-12-24] MEDS ORDERED: HEPARIN SODIUM,PORCINE 10,000 UNIT/ML 1 ML VIAL ONE (10:30)
[2016-12-24] MEDS ORDERED: MIDAZOLAM 2 MG/2 ML VIAL ONE (10:30)
[2016-12-24] MEDS ORDERED: PROTAMINE SULFATE 10 MG/ML 5 ML VIAL IV ONE (10:30)
[2016-12-24] MEDS ORDERED: HYDROmorphone (PF) 1 MG/ML ONE (10:30)
[2016-12-24] MEDS ORDERED: LIDOCAINE 2% INJ 20 MG/ML SQ ONE (11:44)
[2016-12-24] MEDS ORDERED: HEPARIN SODIUM,PORCINE/D5W PMX 25,000 UNIT in DEXTROSE/WATER 1 500ML.BAG IV ONE (11:55)
[2016-12-24] MEDS ORDERED: ACETAMINOPHEN TAB 325 MG TAB PO PRN (14:47)
[2016-12-24] MEDS ORDERED: HYDROcodone/APAP 5-325MG 1 EACH TAB PO PRN (14:47)
[2016-12-24] MEDS ORDERED: ACETAMINOPHEN IV (For NPO) 1,000 MG in EMPTY BAG 1 BAG IVPB ONE (14:47)
--- NOTE | 2016-12-24 14:56 | P.PCN ---
Preoperative Diagnosis: Procedure Pulmonary vein isolation for atrial fibrillation, Indication Atrial fibrillation, persistent, symptomatic, refractory to 2 antiarrhythmic drugs Procedures performed Percutaneous arterial catheterization/cannulation for sampling and monitoring Diagnoses EP study CS pacing and recording Intracardiac echocardiography Left and right transseptal catheterization Conventional mapping Pulmonary vein isolation, all 4 pulmonary veins were isolated with documented entrance block Electrical cardioversion for atrial fibrillation Result Successful complete isolation of all 4 pulmonary veins with entrance block documented at the end of the procedure Abnormal AV node function with atrial pacing with a very prolonged [place] interval and pacing at a cycle length of 600 ms Suggest Lifelong anticoagulation Stop digoxin Reduce metoprolol to 25 mg twice daily starting 48 hours after the procedure Continue all other medications Postoperative Diagnosis: Procedure(s) Performed: Implants: Indications for Procedure: Operative Findings: Description of Procedure:
[2016-12-24] MEDS ORDERED: IOHEXOL 350 MG/ML 100 ML BOTTLE INJ ONE (15:25)
[2016-12-24 17:16] LABS: Glucose,Whole Blood 214 mg/dL (75-99)
[2016-12-24] MEDS: INSULIN LISPRO (humaLOG) 300 UNIT/3 ML VIAL SQ SCH ×3 (17:20→22:12)
[2016-12-24] MEDS: metFORMIN 850 MG TAB PO SCH ×2 (18:38→20:49)
[2016-12-24 19:45] VITALS: BMI 35.0
[2016-12-24] MEDS: INSULIN GLARGINE 100 UNIT/ML 10 ML VIAL SQ SCH (20:48)
[2016-12-24 21:10] LABS: Glucose,Whole Blood 192 mg/dL (75-99)
[2016-12-25 00:13] VITALS: RESP 18
[2016-12-25 05:41] LABS: Glucose,Whole Blood 193 mg/dL (75-99)
[2016-12-25] MEDS: INSULIN LISPRO (humaLOG) 300 UNIT/3 ML VIAL SQ SCH ×4 (06:28→22:06)
[2016-12-25 07:24] LABS: ALT 42 U/L (9-52); AST 36 U/L (14-36); Alkaline Phosphatase 54 U/L (38-126); Anion Gap 14 mmol/L; Blood Urea Nitrogen 27 mg/dL (7-17); Calcium 8.7 mg/dL (8.4-10.2); Carbon Dioxide 23 mmol/L (22-30); Chloride 105 mmol/L (98-107); Glucose 176 mg/dL (74-99); Non-African American GFR(MDRD) >60 (>60 ml/min/1.73 sqM); Potassium 4.7 mmol/L (3.5-5.1); Sodium 142 mmol/L (137-145); Total Bilirubin 0.2 mg/dL (0.2-1.3); Total Protein 6.5 g/dL (6.3-8.2)
[2016-12-25] MEDS: EDOXABAN TOSYLATE 60 MG TABLET PO SCH (08:33)
[2016-12-25] MEDS: amLODIPine 10 MG TAB PO SCH (08:33)
[2016-12-25] MEDS: ASPIRIN 81 MG CHEW PO SCH (08:33)
[2016-12-25] MEDS: metFORMIN 850 MG TAB PO SCH ×3 (08:33→22:05)
[2016-12-25] MEDS ORDERED: NON-FORMULARY DRUG (Liraglutide [Victoza 2-Pak] 1.8 MG) SQ SCH (09:00)
--- NOTE | 2016-12-25 09:53 | OP ---
66-year-old female with symptomatic persistent atrial fibrillation who has failed both flecainide and subsequently had abnormal LFTs on amiodarone. The drug was discontinued. She went back into atrial fibrillation. She is complaining of shortness of breath and lack of energy and she was brought in for an a. fib ablation for pulmonary vein isolation. The patient was brought to the EP lab in a fasting state. Written informed consent was obtained prior to the procedure. The procedure was performed under general anesthesia. She was in a. fib at the start of the study. Dr. Coe performed ultrasound guided access of the femoral vein on the right side, two accesses within the femoral vein on the left side and left femoral artery access. Subsequently, I placed the catheters and the femoral artery was cannulated for hemodynamic monitoring and sampling. HD is maintained about 300. Blood pressure remained stable throughout the procedure. Intracardiac echocardiography was performed. Intra-atrial septum was identified. The pulmonary veins were identified. Left and right transseptal catheterization was performed. First, a regular long sheath was placed within the left atrium and then over the wire. The cryoablation sheath was placed. Right and left transseptal catheterizations were performed. RA pressure was 10 x 7 x 8 mmHg. LA pressure was 26 x 5 x 14 mmHg. Following that, cryoablation was performed sequentially starting with the left inferior then left superior and right superior and right inferior veins. 1.5 mL of dye was injected to confirm an occluded vein. The patient already had been prepped with steroids prior to the procedure. ( ) block was confirmed after every lesion. ( ) pacing was performed from the SVC/right innominate vein and other diaphragmatic voltage monitoring was also performed during right-sided ablation. A single lesion was placed in the left superior vein. Two lesions were placed in the left inferior vein. Excellent temperatures were achieved and complete isolation was documented. At the end of the procedure complete isolation was once again rechecked. Next, ( ) pacing, the right superior vein was ablated with two lesions, 180 seconds each with excellent temperatures. The vein was completed isolated. Next, in the right inferior vein, it was isolated during ( ) pacing. The first lesion of 180 seconds followed by 120 seconds ( ) stimulation was performed and diaphragmatic contractions were confirmed until the end of the procedure. The patient remained in atrial fibrillation but with more organization. She underwent electrical cardioversion. EH interval 80 milliseconds. HV interval 65 milliseconds. QRS interval 88 milliseconds. QT 326 milliseconds. Normal VA interval sinus. Heart rate is in the 50's. Burst pacing of the right ventricle is performed. Sinus marck recovery times were performed and were prolonged at a pacing ( ) of 500 milliseconds. AV marck Wenckebach block was 500 milliseconds. A very prolonged VA interval is noted even when pacing at 600 milliseconds. At the end of the procedure heparin was reversed, sheaths were removed and the patient was transferred to telemetry. Procedure was performed under general anesthesia. RESULT: 1. Successful ablation of the pulmonary vein using cryoablation. 2. Abnormal AV node function. 3. Mildly abnormal sinus node function. 4. VA interval is significantly prolonged during atrial pacing at a cycle length of 600 milliseconds. Suggest continue anticoagulation, stop digoxin, hold beta blockers for two days and then restart at a lower dose of 35 mg twice daily. MTDD
[2016-12-25 12:00] LABS: Glucose,Whole Blood 218 mg/dL (75-99)
[2016-12-25 16:27] LABS: Glucose,Whole Blood 212 mg/dL (75-99)
--- NOTE | 2016-12-25 19:58 | P.DS ---
Providers Attending physician: Claude Kern Primary care physician: Edgardo Juarez [facility] Course: Patient is doing well. Her vitals are stable heart rates are normal she is normal rhythm did no chest discomfort no dizziness. I made her walk up and down the hallway and she complained of shortness of breath. Her daughter who was with her thought she was deeply short of breath today as she was in the previous weeks However she has no palpitations down since she is in sinus rhythm status post antral isolation of the pulmonary veins But she does have persistent atrial fibrillation In addition she has Sick Sinus Syndrome and an abnormal AV node with atrial pacing. The UT interval was significantly prolonged with pacing at 100 beats a minute It may be possible that her shortness of breath on exertion is related to chronotropic incompetence Heart sounds are normal, breath sounds are normal extremities warm no edema groin sites are healed well Labs are reviewed, potassium 4.7, creatinine 0.93, TSH 3.6 normal liver function Impression Persistent atrial fibrillation status post antral isolation of the pulmonary veins Sick Sinus Syndrome Abnormal AV node function with atrial pacing demonstrated at EP study A. 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 I explained to her daughter that the reason for treating her atrial fibrillation would be because of RVR and difficulty with rate control despite high dose beta blockers up 200 mg 3 times a day along with digoxin I would suggest antiarrhythmic drug therapy with dofetilide after waiting for about a month She was on amiodarone for about 3-4 months and this was discontinued around November 10, 2016 If this fails permanent pacemaker and AV junction modification may be considered At this time she will stop digoxin and reduce metoprolol to 25 mg twice daily Continue anticoagulation and other cardiac medications Patient Condition at Discharge: Stable Plan - Discharge Summary New Discharge Prescriptions: Discontinued Metoprolol Tartrate [Lopressor] 100 mg PO TID Digoxin [Lanoxin] 250 mcg PO DAILY No Action Aspirin EC [Ecotrin Low Dose] 81 mg PO DAILY metFORMIN HCL [Metformin HCl] 850 mg PO TID SILVER sulfADIAZINE CREAM [Silvadene Cream] 1 applic TOPICAL BID Insulin Glargine,Hum.rec.anlog [Dorothy Solostar] 28 units SQ HS Edoxaban Tosylate [Savaysa] 60 mg PO DAILY Liraglutide [Victoza 2-Ishan] 1.8 mg SQ DAILY amLODIPine BESYLATE [Norvasc] 10 mg PO QAM Discharge Medication List Aspirin EC [Ecotrin Low Dose] 81 mg PO DAILY 02/27/14 [History] metFORMIN HCL [Metformin HCl] 850 mg PO TID 01/24/15 [History] Edoxaban Tosylate [Savaysa] 60 mg PO DAILY 07/20/16 [History] Insulin Glargine,Hum.rec.anlog [Dorothy Ansariostar] 28 units SQ HS 07/20/16 [ History] SILVER sulfADIAZINE CREAM [Silvadene Cream] 1 applic TOPICAL BID 07/20/16 [ History] Liraglutide [Victoza 2-Ishan] 1.8 mg SQ DAILY 11/09/16 [History] amLODIPine BESYLATE [Norvasc] 10 mg PO QAM 12/19/16 [History] Activity/Diet/Wound Care/Special Instructions: Post EP study - Ablation instructions 1. Keep access sites dry for 2 days. 2. No heavy lifting or straining for 2 days. 3. Avoid bending the hips repeatedly for 2 days. 4. You may go up and down stairs slowly Call if the following is noted 1. Bleeding, increasing swelling or pain at the access sites. 2. Increasing chest discomfort, especially upon taking a deep breath. 3. Increasing shortness of breath, at rest or with exertion. 4. Undue cough / phlegm 5. Difficulty or pain while swallowing. 6. Pain or change in color in the extremities. 7. Fever, chills, rigors. 8. Increasing headache or neurologic symptoms. 9. Dizziness, fainting, palpitations Medication changes Stop digoxin Hold metoprolol for 2 days and then restart at a low dose of 25 mg twice daily Continue Savaysa lifelong and continue all other medications
[2016-12-25 21:37] LABS: Glucose,Whole Blood 206 mg/dL (75-99)
[2016-12-25] MEDS: INSULIN GLARGINE 100 UNIT/ML 10 ML VIAL SQ SCH (22:06)
[2016-12-26 06:14] LABS: Glucose,Whole Blood 167 mg/dL (75-99)
[2016-12-26] MEDS: INSULIN LISPRO (humaLOG) 300 UNIT/3 ML VIAL SQ SCH ×4 (06:34→20:06)
--- NOTE | 2016-12-26 08:17 | P.PN ---
Subjective Patient still complains of nausea and jitteriness. No chest discomfort she states she is short of breath no dizziness or lightheadedness while lying in bed. Her main complaint is that she is jittery and she appears anxious She is on anticoagulation with Savaysa post A. fib ablation On examination her vitals are stable heart rates are in the 70s blood pressure is normal abdomen is soft nontender heart sounds are normal. She has no pleuritic chest discomfort Extremities warm trace pedal edema groin site healed well Impression Persistent atrial fibrillation with a rapid ventricular response, patient is being discharged yesterday evening when she started complaining of nausea and jitteriness and therefore discharge was withheld. Her vitals are stable at that time no abnormalities were noted labs are within normal limits CAD Diabetes Obesity Sick Sinus Syndrome and abnormal AV node function with atrial pacing Tachybradycardia syndrome Abnormal liver function in the past in October 2016 which is now normalized Plan Restart metoprolol 25 mg twice daily 2-D echo limited to assess pericardial Lipase level and amylase Orthostatics today Discussed with the nurse Will hold discharge for now If orthostatics are normal then Lasix 20 mg IV 1 Objective - Vital Signs Vital signs: Vital Signs Temp 98.8 F 12/26/16 04:00 Pulse 72 12/26/16 04:00 Resp 18 12/26/16 04:00 BP 144/58 12/26/16 04:00 Pulse Ox 90 L 12/26/16 04:00 Intake & Output 12/25/16 12/26/16 12/26/16 18:59 06:59 18:59 Intake Total 480 12 Output Total 600 Balance -120 12 Weight 117.3 kg Intake: IV 12 0.9 12 Oral 480 Output: Urine 600 Other: Voiding Method Toilet Toilet # Voids 2 # Bowel Movements 1 - Labs CBC & Chem 7: 12/25/16 05:41 Labs: Abnormal Lab Results - Last 24 Hours (Table) 12/25/16 12/25/16 12/25/16 Range/Units 11:57 16:25 21:36 POC Glucose (mg/dL) 218 H 212 H 206 H (75-99) mg/dL 12/26/16 Range/Units 06:13 POC Glucose (mg/dL) 167 H (75-99) mg/dL
[2016-12-26] MEDS ORDERED: FUROSEMIDE 10 MG/ML 2 ML VIAL IV ONE (08:45)
[2016-12-26] MEDS: metFORMIN 850 MG TAB PO SCH ×3 (09:27→20:39)
[2016-12-26] MEDS: amLODIPine 10 MG TAB PO SCH (09:27)
[2016-12-26] MEDS: METOPROLOL TARTRATE 25 MG TAB PO SCH ×2 (09:27→20:21)
[2016-12-26] MEDS: ASPIRIN 81 MG CHEW PO SCH (09:27)
[2016-12-26] MEDS: EDOXABAN TOSYLATE 60 MG TABLET PO SCH (09:27)
[2016-12-26 09:58] LABS: Amylase 41 U/L (30-110)
--- NOTE | 2016-12-26 10:08 | XR ---
EXAMINATION TYPE: XR chest 2V DATE OF EXAM: 12/26/2016 COMPARISON: Prior chest x-ray 11/09/2016 HISTORY: Shortness of breath TECHNIQUE: Frontal and lateral views of the chest are obtained. FINDINGS: Heart is stable and enlarged. There is prominent ovarian arteries. No pneumothorax or pleu ral effusion. Old right-sided rib fracture again noted. No evident airspace disease. Prominent lung v olumes suggest COPD. There are coronary artery calcifications. IMPRESSION: Consider pulmonary artery hypertension. Coronary artery disease.
[2016-12-26 11:42] LABS: Glucose,Whole Blood 223 mg/dL (75-99)
[2016-12-26 17:09] LABS: Glucose,Whole Blood 160 mg/dL (75-99)
[2016-12-26 17:22] VITALS: BP 140/56; PULSE 61; TEMP 98
--- NOTE | 2016-12-26 17:35 | P.PN ---
Subjective Principal diagnosis: Cardiology and turned care of patient over to family physician. Patient noted to be short of breath. Consultation ordered for pulmonology Objective - Vital Signs Vital signs: Vital Signs Temp 98.0 F 12/26/16 16:00 Pulse 61 12/26/16 16:00 Resp 18 12/26/16 16:00 BP 140/56 12/26/16 16:00 Pulse Ox 91 L 12/26/16 16:00 Intake & Output 12/25/16 12/26/16 12/26/16 18:59 06:59 18:59 Intake Total 480 12 337 Output Total 600 Balance -120 12 337 Weight 117.3 kg Intake: IV 12 0.9 12 Oral 480 337 Output: Urine 600 Other: Voiding Method Toilet Toilet Toilet # Voids 2 1 # Bowel Movements 1 - Constitutional General appearance: Present: mild distress - EENT Eyes: Present: PERRLA Ears: bilateral: normal - Neck Neck: Present: normal ROM - Respiratory Respiratory: bilateral: CTA - Cardiovascular Rhythm: regular - Integumentary Integumentary: Present: normal - Neurologic Neurologic: Present: CNII-XII intact - Musculoskeletal Musculoskeletal: Present: generalized weakness - Psychiatric Psychiatric: Present: A&O x's 3, appropriate affect, intact judgment & insight - Labs CBC & Chem 7: 12/25/16 05:41 Labs: Abnormal Lab Results - Last 24 Hours (Table) 12/25/16 12/26/16 12/26/16 Range/Units 21:36 06:13 11:27 POC Glucose (mg/dL) 206 H 167 H 223 H (75-99) mg/dL 12/26/16 Range/Units 17:06 POC Glucose (mg/dL) 160 H (75-99) mg/dL - Imaging and Cardiology Chest x-ray: report reviewed Assessment and Plan Plan: Assessment atrial fibrillation with RVR history of coronary disease diabetes type II six sinus syndrome with abnormal AV function tachy Cachorro syndrome Plan pulmonology consultation regarding shortness of breath
[2016-12-26 20:03] LABS: Glucose,Whole Blood 208 mg/dL (75-99)
[2016-12-26] MEDS: INSULIN GLARGINE 100 UNIT/ML 10 ML VIAL SQ SCH (20:05)
--- NOTE | 2016-12-26 20:59 | ECHOF ---
Referral Reason:pericardial effusion r/o MEASUREMENTS -------- HEIGHT: 170.2 cm WEIGHT: 117.0 kg BP: 144/58 FINDINGS -------- Undetermined rhythm. Limited Study to r/o pericardial Effusion, pt had ablation 12/27. Overall left ventricular systolic function is normal with, an EF between 55 - 60 %. There is a trivial pericardial effusion present. CONCLUSIONS -------- 1. Limited Study to r/o pericardial Effusion, pt had ablation 12/25. 2. There is a trivial pericardial effusion present. NIGHT BAKER: Vanesa Jo RDCS
--- NOTE | 2016-12-27 11:29 | P.DS ---
Providers Date of admission: 12/26/16 08:26 Expected date of discharge: 12/26/16 Attending physician: Claude Kern Consults: 12/26/16 16:05 Consult Physician Urgent Consulting Provider: Michael Beard Consult Reason/Comments: COPD dyspnea Do you want consulting provider notified?: Yes Primary care physician: Edgardo Juarez [facility] Course: 66-year-old female was admitted for ablation of atrial fibrillation per Dr. Kern. Ablation was successful. Patient developed some nausea and complaints of dizziness. Care was transferred from cardiology to primary care physician Dr. Edgardo Juarez. Patient was discharged home. Will be following up with Dr. Beard regarding COPD Assessment Persistent atrial fibrillation post ablation History of coronary disease Diabetes type 2 Morbid obesity COPD 6 sinus syndrome abnormal AV node function with atrial pacing Tachycardia bradycardia syndrome Plan Discharge home follow-up with cardiology family physician and pulmonology Patient Condition at Discharge: Stable Plan - Discharge Summary New Discharge Prescriptions: Discontinued Metoprolol Tartrate [Lopressor] 100 mg PO TID Digoxin [Lanoxin] 250 mcg PO DAILY No Action Aspirin EC [Ecotrin Low Dose] 81 mg PO DAILY metFORMIN HCL [Metformin HCl] 850 mg PO TID SILVER sulfADIAZINE CREAM [Silvadene Cream] 1 applic TOPICAL BID Insulin Glargine,Hum.rec.anlog [Toujeo Solostar] 28 units SQ HS Edoxaban Tosylate [Savaysa] 60 mg PO DAILY Liraglutide [Victoza 2-Ishan] 1.8 mg SQ DAILY amLODIPine BESYLATE [Norvasc] 10 mg PO QAM Discharge Medication List Aspirin EC [Ecotrin Low Dose] 81 mg PO DAILY 02/27/14 [History] metFORMIN HCL [Metformin HCl] 850 mg PO TID 01/24/15 [History] Edoxaban Tosylate [Savaysa] 60 mg PO DAILY 07/20/16 [History] Insulin Glargine,Hum.rec.anlog [Toujeo Solostar] 28 units SQ HS 07/20/16 [ History] SILVER sulfADIAZINE CREAM [Silvadene Cream] 1 applic TOPICAL BID 07/20/16 [ History] Liraglutide [Victoza 2-Ishan] 1.8 mg SQ DAILY 11/09/16 [History] amLODIPine BESYLATE [Norvasc] 10 mg PO QAM 12/19/16 [History] Follow up Appointment(s)/Referral(s): Edgardo Juarez MD [Primary Care Provider] - 3 Days (call office to make appointment) Otis Ralph MD [STAFF PHYSICIAN] - 1 Week (call office to make appointment) Patient Instructions/Handouts: Atrial Fibrillation (DC), Cardiac Ablation (DC) Activity/Diet/Wound Care/Special Instructions: Post EP study - Ablation instructions 1. Keep access sites dry for 2 days. 2. No heavy lifting or straining for 2 days. 3. Avoid bending the hips repeatedly for 2 days. 4. You may go up and down stairs slowly Call if the following is noted 1. Bleeding, increasing swelling or pain at the access sites. 2. Increasing chest discomfort, especially upon taking a deep breath. 3. Increasing shortness of breath, at rest or with exertion. 4. Undue cough / phlegm 5. Difficulty or pain while swallowing. 6. Pain or change in color in the extremities. 7. Fever, chills, rigors. 8. Increasing headache or neurologic symptoms. 9. Dizziness, fainting, palpitations Medication changes Stop digoxin Hold metoprolol for 2 days and then restart at a low dose of 25 mg twice daily Continue Savaysa lifelong and continue all other medications Discharge Disposition: HOME SELF-CARE
== END 2016-12-26 21:52 | disposition home or self-care (01) | DRG 272 ==
LOC: CATHEP 08:17 → 6SEL 14:40 → CATHEP 12-26 08:26 → 6SEL 12-26 08:26
PROVIDERS: ADMIT Family Medicine; ATTEND Internal Medicine Clinical Cardiac Electrophysiology
PROC: 5A2204Z Restoration of Cardiac Rhythm, Single (ICD-10-PCS; principal; 2016-12-26)
PROC: 025S3ZZ Destruction of Right Pulmonary Vein, Percutaneous Approach (ICD-10-PCS; principal; 2016-12-26)
PROC: B246ZZZ Ultrasonography of Right and Left Heart (ICD-10-PCS; principal; 2016-12-26)
PROC: 025T3ZZ Destruction of Left Pulmonary Vein, Percutaneous Approach (ICD-10-PCS; principal; 2016-12-26)
PROC: 4A0234Z Measurement of Cardiac Electrical Activity, Percutaneous Approach (ICD-10-PCS; principal; 2016-12-26)
PROC: 02K83ZZ Map Conduction Mechanism, Percutaneous Approach (ICD-10-PCS; principal; 2016-12-26)
DX: I48.1 Persistent atrial fibrillation (principal); I49.5 Sick sinus syndrome; E66.01 Morbid (severe) obesity due to excess calories; E11.9 Type 2 diabetes mellitus without complications; I25.10 Atherosclerotic heart disease of native coronary artery without angina pectoris; I44.0 Atrioventricular block, first degree; I45.89 Other specified conduction disorders; J44.9 Chronic obstructive pulmonary disease, unspecified; Z79.01 Long term (current) use of anticoagulants
CPT/HCPCS: 71020; 80053; 82150; 83690; 84443; 85379; 93308

== ENCOUNTER 2017-01-08 08:01 | Inpatient (IN) | payer MEDICARE, BC ==
[2017-01-08 08:57] VITALS: BMI 40.2
[2017-01-08 10:18] LABS: Anion Gap 12 mmol/L; Blood Urea Nitrogen 14 mg/dL (7-17); Calcium 8.2 mg/dL (8.4-10.2); Carbon Dioxide 23 mmol/L (22-30); Chloride 107 mmol/L (98-107); Glucose 102 mg/dL (74-99); Non-African American GFR(MDRD) >60 (>60 ml/min/1.73 sqM); Potassium 4.4 mmol/L (3.5-5.1); Sodium 142 mmol/L (137-145)
[2017-01-08 10:24] LABS: Magnesium 1.1 mg/dL (1.6-2.3)
[2017-01-08 12:07] LABS: Glucose,Whole Blood 132 mg/dL (75-99)
[2017-01-08] MEDS ORDERED: IPRATROPIUM-ALBUTEROL 3 ML NEB INHALATION PRN (15:16)
--- NOTE | 2017-01-08 15:16 | P.CNPUL ---
History of Present Illness Consult date: 01/08/17 Requesting physician: Edgardo Juarez Reason for consult: dyspnea Chief complaint: Dyspnea on exertion History of present illness: This is a very pleasant 66-year-old female patient who follows with Dr. Edgardo Juarez is her primary care physician. She has a history of diabetes mellitus, hypertension, hyperlipidemia, diabetes mellitus, type II, chronic venous stasis of the lower extremities with ulceration, coronary artery disease with previous stent placement to the right PDA in 2013. She has has a history of atrial fibrillation and has failed flecainide and had abnormal LFTs on amiodarone. She has been anticoagulated with Savaysa. On 12/24/2016 she had undergone an atrial fibrillation for pulmonary vein isolation by Dr. Kern. She has maintained normal sinus rhythm since then. The patient has had ongoing complaints of dyspnea on minimal exertion which was felt to be secondary to paroxysmal atrial fibrillation however recently the patient's shortness of breath has been worse and she was brought here today for possible Tikosyn loading. She is found to be continued in normal sinus rhythm and it is felt her significant shortness of breath is not related to cardiac arrhythmias. We' re consulted for the same. The patient is a lifelong nonsmoker. No history of asthma. No emphysema. No inhalers. The patient does have clinical features of obstructive sleep apnea and the plans were sleep study in the outpatient setting. Her most recent chest x-ray also considered possible pulmonary artery hypertension. Her most recent echocardiogram via [place] revealed an RVSP of 36 mmHg. There was no shunting across the anterior atrial septum. There was some biatrial enlargement. Normal left ventricular size and systolic function. No other significant findings. The patient is seen today in consultation on the selective care unit. She is awake and alert in no acute distress. She did desaturate into the low 80s on a brief walk without oxygen. She is quite dyspneic on minimal exertion. She has been compliant with her Savaysa. Review of Systems 14 point review of system was conducted. All negative other than as mentioned in the HPI. Past Medical History Past Medical History: Atrial Fibrillation, Diabetes Mellitus, Hyperlipidemia, Osteoarthritis (OA), Pneumonia, Skin Disorder, Vascular Disorder Additional Past Medical History / Comment(s): SOB, diarrhea, see Dr Kern H&P , 2 sores left leg, frequent urination at night, hx kidney stones, History of Any Multi-Drug Resistant Organisms: None Reported Past Surgical History: Ablation, Cardiac Ablation, Heart Catheterization, Heart Catheterization With Stent, Hysterectomy, Tubal Ligation Additional Past Surgical History / Comment(s): [place] with cardioversion, varicose vein stripping, one cardiac stent, rt cataract Past Anesthesia/Blood Transfusion Reactions: Motion Sickness, Postoperative Nausea & Vomiting (PONV) Additional Past Anesthesia/Blood Transfusion Reaction / Comment(s): PONV 40 PLUS YEARS AGO, AFTER REMOVAL KIDNEY STONE. Date of Last Stent Placement:: November 2013 Past Psychological History: No Psychological Hx Reported Additional Psychological History / Comment(s): . Smoking Status: Never smoker Past Alcohol Use History: None Reported Additional Past Alcohol Use History / Comment(s): . Past Drug Use History: None Reported - Past Family History Father Family Medical History: No Reported History Additional Family Medical History / Comment(s): . Mother Family Medical History: Cancer Additional Family Medical History / Comment(s): bladder Medications and Allergies Home Medications Medication Instructions Recorded Confirmed Type Aspirin EC [Ecotrin Low Dose] 81 mg PO DAILY 02/27/14 01/08/17 History metFORMIN HCL [Metformin HCl] 850 mg PO TID 01/24/15 01/08/17 History Edoxaban Tosylate [Savaysa] 60 mg PO DAILY 07/20/16 01/08/17 History Insulin Glargine,Hum.rec.anlog 28 units SQ HS 07/20/16 01/08/17 History [Toujeo Solostar] SILVER sulfADIAZINE CREAM 1 applic TOPICAL BID PRN 07/20/16 01/08/17 History [Silvadene Cream] Liraglutide [Victoza 2-Ishan] 1.8 mg SQ DAILY 11/09/16 01/08/17 History amLODIPine BESYLATE [Norvasc] 10 mg PO QAM 12/19/16 01/08/17 History Digoxin [Digitek] 250 mcg PO DAILY 01/08/17 01/08/17 History Metoprolol Tartrate [Lopressor] 25 mg PO BID 01/08/17 01/08/17 History Allergies Allergy/AdvReac Type Severity Reaction Status Date / Time Iodinated Contrast- Oral and Allergy Severe THROAT Verified 01/08/17 09:14 IV Dye SWELLING [Iodinated Contrast Media - Oral and] iodine Allergy Severe THROAT Verified 01/08/17 09:14 SWELLING, RASH shellfish derived Allergy Severe THROAT Verified 01/08/17 09:14 SWELLING, RASH cefazolin sodium Allergy Dyspnea Verified 01/08/17 09:14 [From Kefzol] Latex, Natural Rubber Allergy Rash/Hives Verified 01/08/17 09:14 levofloxacin [From Levaquin] Allergy Rash/Hives Verified 01/08/17 09:14 piperacillin sodium Allergy THROAT Verified 01/08/17 09:14 [From Zosyn] SWELL, RASH tazobactam sodium Allergy THROAT Verified 01/08/17 09:14 [From Zosyn] SWELL, RASH seafood Allergy Severe throat Uncoded 12/19/16 15:29 swelling Physical Exam Vitals: Vital Signs Temp Pulse Resp BP Pulse Ox 01/08/17 12:00 69 16 124/58 87 L 01/08/17 08:51 97.7 F 67 20 150/62 94 L Intake and Output 01/07/17 01/08/17 01/08/17 22:59 06:59 14:59 Other: Weight 116.6 kg Patient Weight 01/09/17 06:59 Weight 116.6 kg GENERAL EXAM: Obese. Alert, fairly comfortable in no apparent distress. HEAD: Normocephalic. EYES: Normal reaction of pupils, equal size. NOSE: Clear with pink turbinates. THROAT: There is crowding the posterior pharynx. No erythema or exudates. NECK: Short. No masses, no JVD. CHEST: No chest wall deformity. LUNGS: Equal air entry with crackles in the left posterior base. CVS: S1 and S2 normal with no audible murmurs, regular rhythm. ABDOMEN: No hepatosplenomegaly, normal bowel sounds, no guarding or rigidity. SPINE: No scoliosis or deformity SKIN: Open sores of the left lower extremity. Changes of chronic venous stasis. CENTRAL NERVOUS SYSTEM: No focal deficits, tone is normal in all 4 extremities. Extremities: There is 1-2+ lower extremity peripheral edema. No clubbing, no cyanosis. Peripheral pulses are intact. Results - Laboratory Findings CBC and BMP: 01/08/17 09:28 Abnormal lab findings: Abnormal Labs 01/08/17 01/08/17 09:28 11:46 Glucose 102 H POC Glucose (mg/dL) 132 H Calcium 8.2 L Magnesium 1.1 L Assessment and Plan Plan: Impression: #1 Acute hypoxic respiratory failure of unclear etiology. Initially thought secondary to atrial fibrillation however the patient is quite dyspneic and has decreased O2 saturations and currently is in normal sinus rhythm. Suspect pulmonary hypertension however mild to moderate with an RVSP of 36 mmHg. Clinical features of obstructive sleep apnea and possible obesity/ hypoventilation syndrome. Suspect underlying restrictive lung disease. Less likely pulmonary embolism as the patient has been anticoagulated for approximate 6 months on Savaysa. The patient does have a history of cough 48 hours following the [place] and there was some suspected chemical pneumonitis in July 2016. #2 Paroxysmal atrial fibrillation status post ablation and PVI 12/26/2016, currently in normal sinus rhythm. #3 Morbid obesity. #4 Coronary artery disease with previous stent placement to the right PDA in 2013. #5 Diabetes mellitus, type II. #6 Hyperlipidemia. #7 Hypertension. #8 Osteoarthritis. #9 History of rectal bleed. #10 Chronic venous stasis of the lower extremities. #11 History of nephrolithiasis. Plan: The patient was seen and evaluated by Dr. Beard. We will go ahead and obtain a computed tomography scan of the chest without contrast due to her ALLERGY to IV dye. Also obtain room air blood gases. We were planning a outpatient sleep study for suspected obstructive sleep apnea which will be arranged again once discharge. We will initiate bronchodilators as needed. She remains anticoagulated with Savaysa. We will continue to follow and make further recommendations based on her clinical status. Time with Patient: Greater than 30
[2017-01-08] MEDS: MAGNESIUM SULFATE-D5W PMX 1 GM in DEXTROSE/WATER 1 100ML.BAG IVPB SCH ×4 (15:24→22:50)
[2017-01-08 17:17] LABS: Glucose,Whole Blood 128 mg/dL (75-99)
[2017-01-08] MEDS: metFORMIN 850 MG TAB PO SCH (17:27)
--- NOTE | 2017-01-08 17:42 | CT ---
EXAMINATION TYPE: CT chest wo con DATE OF EXAM: 01/08/2017 COMPARISON: 05/27/2011 HISTORY: Pt states of difficulty breathing. CT DLP: 873 mGycm. Automated Exposure Control for Dose Reduction was Utilized. TECHNIQUE: CT scan of the thorax is performed without IV contrast. FINDINGS: There are mild bilateral pleural effusions. Thoracic aorta is atheromatous. Ascending aorta is mildly ectatic and measures 3.7 cm. There are large central pulmonary arteries. There is coronary artery ca lcification. There is no pericardial effusion. Heart is enlarged. There are coarse infiltrates and atelectasis at the posterior lung bases. There is spurring in the th oracic spine. IMPRESSION: There are new basilar pulmonary infiltrates and atelectasis and bilateral pleural effusio ns compared to old exam. Cardiomegaly with large central pulmonary arteries consistent with pulmonary hypertension. Atherosclerotic vascular disease. No evidence of a pulmonary mass. There could be federico estive heart failure.
--- NOTE | 2017-01-08 17:48 | P.CONS ---
History of Present Illness - History of Present Illness 66-year-old female was admitted to the hospital with the intent of doing Tikosyn loading. Patient was found to be in a sinus rhythm. Patient does continue complain of shortness of breath. Patient was seen by pulmonology computed tomography scan of the chest was ordered. Found to have a low magnesium replacement has been ordered Review of Systems Constitutional: Reports fatigue Cardiovascular: Reports dyspnea on exertion, Reports irregular heart beat Respiratory: Reports cough Past Medical History Past Medical History: Atrial Fibrillation, Diabetes Mellitus, Hyperlipidemia, Osteoarthritis (OA), Pneumonia, Skin Disorder, Vascular Disorder Additional Past Medical History / Comment(s): SOB, diarrhea, see Dr Kern H&P , 2 sores left leg, frequent urination at night, hx kidney stones, History of Any Multi-Drug Resistant Organisms: None Reported Past Surgical History: Ablation, Cardiac Ablation, Heart Catheterization, Heart Catheterization With Stent, Hysterectomy, Tubal Ligation Additional Past Surgical History / Comment(s): [place] with cardioversion, varicose vein stripping, one cardiac stent, rt cataract Past Anesthesia/Blood Transfusion Reactions: Motion Sickness, Postoperative Nausea & Vomiting (PONV) Additional Past Anesthesia/Blood Transfusion Reaction / Comm: PONV 40 PLUS YEARS AGO, AFTER REMOVAL KIDNEY STONE. Date of Last Stent Placement:: November 2013 Past Psychological History: No Psychological Hx Reported Additional Psychological History / Comment(s): . Smoking Status: Never smoker Past Alcohol Use History: None Reported Additional Past Alcohol Use History / Comment(s): . Past Drug Use History: None Reported - Past Family History Father Family Medical History: No Reported History Additional Family Medical History / Comment(s): . Mother Family Medical History: Cancer Additional Family Medical History / Comment(s): bladder Medications and Allergies Home Medications Medication Instructions Recorded Confirmed Type Aspirin EC [Ecotrin Low Dose] 81 mg PO DAILY 02/27/14 01/08/17 History metFORMIN HCL [Metformin HCl] 850 mg PO TID 01/24/15 01/08/17 History Edoxaban Tosylate [Savaysa] 60 mg PO DAILY 07/20/16 01/08/17 History Insulin Glargine,Hum.rec.anlog 28 units SQ HS 07/20/16 01/08/17 History [Dorothy Astorga] SILVER sulfADIAZINE CREAM 1 applic TOPICAL BID PRN 07/20/16 01/08/17 History [Silvadene Cream] Liraglutide [Victoza 2-Ishan] 1.8 mg SQ DAILY 11/09/16 01/08/17 History amLODIPine BESYLATE [Norvasc] 10 mg PO QAM 12/19/16 01/08/17 History Digoxin [Digitek] 250 mcg PO DAILY 01/08/17 01/08/17 History Metoprolol Tartrate [Lopressor] 25 mg PO BID 01/08/17 01/08/17 History Allergies Allergy/AdvReac Type Severity Reaction Status Date / Time Iodinated Contrast- Oral and Allergy Severe THROAT Verified 01/08/17 09:14 IV Dye SWELLING [Iodinated Contrast Media - Oral and] iodine Allergy Severe THROAT Verified 01/08/17 09:14 SWELLING, RASH shellfish derived Allergy Severe THROAT Verified 01/08/17 09:14 SWELLING, RASH cefazolin sodium Allergy Dyspnea Verified 01/08/17 09:14 [From Kefzol] Latex, Natural Rubber Allergy Rash/Hives Verified 01/08/17 09:14 levofloxacin [From Levaquin] Allergy Rash/Hives Verified 01/08/17 09:14 piperacillin sodium Allergy THROAT Verified 01/08/17 09:14 [From Zosyn] SWELL, RASH tazobactam sodium Allergy THROAT Verified 01/08/17 09:14 [From Zosyn] SWELL, RASH seafood Allergy Severe throat Uncoded 12/19/16 15:29 swelling Physical Exam Vitals: Vital Signs Temp Pulse Resp BP Pulse Ox 01/08/17 16:00 97.1 F L 70 17 146/68 91 L 01/08/17 12:00 69 16 124/58 87 L 01/08/17 08:51 97.7 F 67 20 150/62 94 L Intake and Output 01/08/17 01/08/17 01/08/17 06:59 14:59 22:59 Other: Weight 116.6 kg Patient Weight 01/09/17 06:59 Weight 116.6 kg - Constitutional General appearance: obese - EENT Eyes: PERRLA Ears: bilateral: normal - Neck Neck: normal ROM - Respiratory Respiratory: bilateral: diminished - Cardiovascular Rhythm: regular leg Peripheral Edema: bilateral: 2+ - Gastrointestinal General gastrointestinal: soft - Integumentary Integumentary: normal - Neurologic Neurologic: CNII-XII intact - Musculoskeletal Musculoskeletal: generalized weakness - Psychiatric Psychiatric: A&O x's 3, appropriate affect, intact judgment & insight Results CBC & Chem 7: 01/08/17 09:28 Labs: Abnormal Lab Results - Last 24 Hours (Table) 01/08/17 01/08/17 01/08/17 Range/Units 09:28 11:46 14:20 Glucose 102 H (74-99) mg/dL POC Glucose (mg/dL) 132 H (75-99) mg/dL Calcium 8.2 L (8.4-10.2) mg/dL Magnesium 1.1 L 1.1 L (1.6-2.3) mg/dL 01/08/17 Range/Units 16:57 Glucose (74-99) mg/dL POC Glucose (mg/dL) 128 H (75-99) mg/dL Calcium (8.4-10.2) mg/dL Magnesium (1.6-2.3) mg/dL CT scan - chest: report reviewed Assessment and Plan Plan: Assessment Acute respiratory failure etiology unknown Paroxysmal atrial fibrillation in sinus rhythm at present Morbid obesity History of coronary disease with stent placement right PDA Diabetes type 2 Hyperlipidemia Hypertension Osteoarthritis Pulmonary hypertension Pleural effusion Chronic venous stasis Hypo-magnesium Plan continue consultation with Dr. Beard We'll monitor patient condition
--- NOTE | 2017-01-08 17:59 | P.HPCAR ---
History of Present Illness Chief Complaint: sob History of present illness: Patient was admitted for management of atrial fibrillation which occurred after PVI. Her main symptom was shortness of breath on exertion. She is also been sneezing diarrhea for the last 1-2 weeks her pulse ox is low and she denies any chest discomfort. She does continue palpitations when she is atrial fibrillation. She was on amiodarone for some time. She's been complaining of shortness of breath with a mild exertion spite being in sinus rhythm on those occasions when I made her performed a salmeron walk. On admission her pulse ox was low upon exertion and dropped further upon walking She has been complaining of diarrhea for the last one to 2 weeks and a magnesium was low.Review of systems: No fever chills or rigors, no cough, phlegm or expectoration, no nausea, vomiting or diarrhea, no hematuria, dysuria , no musculoskeletal complaints, no strokes or seizures, no skin lesions. ALLERGIES reviewed and include iodine Medication list was reviewed and is documented in the chart and includes Edoxaban Past medical history was reviewed and includes persistent symptomatic atrial fibrillation with RVR, CAD, diabetes, hypertension Labs are reviewed Potassium is normal renal function is normal glucose is 132 magnesium is 1.1 this will be repeated Review of systems: No fever chills or rigors, no cough, phlegm or expectoration , no nausea, vomiting , no hematuria, dysuria, no musculoskeletal complaints, no strokes or seizures, no skin lesions. The campos symptoms include diarrhea for the last one or 2 weeks, shortness of breath on exertion despite being in sinus rhythm today On examination Blood pressure 124/58 mmHg pulse rate in the 60s, afebrile normal heart rates Breath sounds are reduced bilaterally with bilateral mild rhonchi no crackles heart sounds S1 and S2 are soft no murmurs or gallops Abdomen soft nontender Extremities warm no edema Twelve-lead ECG shows sinus rhythm at 65-70 beats a minute Impression\ Cc of persistent atrial fibrillation with RVR amiodarone as well as flecainide in the past. She had abnormal LFTs on amiodarone. Following that pulmonary vein isolation was performed with cryoablation. Atrial fibrillation status post pulmonary vein isolation and was back in atrial fibrillation in the office hence brought in for management of atrial fibrillation. Today she is in sinus rhythm hence post pulmonary vein isolation she now is in sinus rhythm and has recurrent A. fib Low magnesium on this admission with diarrhea, patient on metformin Hypertension, Morbid obesity BMI 40 Adult-onset diabetes on insulin Sinus bradycardia Shortness of breath on exertion and low pulse ox Known coronary artery disease status post stenting Normal LV function a 2-D echo Patient's main problem is shortness of breath on exertion which occurs even when she is in sinus rhythm. She was on amiodarone in the past During atrial fibrillation she gets scared when she experiences palpitations I don't believe atrial fibrillation is the primary cause of her shortness of breath on exertion and I discussed this with Dr. Juarez and he would like to consult Dr. Beard She is pulse ox is low Plan Hold off on Tikosyn for now Treat low magnesium but repeat the levels once again Evaluation and management of diarrhea Evaluation and management of hypoxia and shortness of breath on exertion Continue cardiac medications and anticoagulation Diabetes management per Dr. Juarez Pulmonary management per Dr. Beard him a evaluate for interstitial lung disease and other causes of shortness of breath on exertion from a pulmonary standpoint. At this time his symptoms are not from atrial fibrillation at a heart rates are in the fairly normal range. I will perform a salmeron walk once again to look at her heart rate response with exercise Physical Exam Vitals: Vital Signs Temp Pulse Resp BP Pulse Ox 01/08/17 12:00 69 16 124/58 87 L 01/08/17 08:51 97.7 F 67 20 150/62 94 L Intake and Output 01/07/17 01/08/17 01/08/17 22:59 06:59 14:59 Other: Weight 116.6 kg Patient Weight 01/09/17 06:59 Weight 116.6 kg Past Medical History Past Medical History: Atrial Fibrillation, Diabetes Mellitus, Hyperlipidemia, Osteoarthritis (OA), Pneumonia, Skin Disorder, Vascular Disorder Additional Past Medical History / Comment(s): SOB, diarrhea, see Dr Kern H&P , 2 sores left leg, frequent urination at night, hx kidney stones, History of Any Multi-Drug Resistant Organisms: None Reported Past Surgical History: Ablation, Cardiac Ablation, Heart Catheterization, Heart Catheterization With Stent, Hysterectomy, Tubal Ligation Additional Past Surgical History / Comment(s): [place] with cardioversion, varicose vein stripping, one cardiac stent, rt cataract Past Anesthesia/Blood Transfusion Reactions: Motion Sickness, Postoperative Nausea & Vomiting (PONV) Additional Past Anesthesia/Blood Transfusion Reaction / Comment(s): PONV 40 PLUS YEARS AGO, AFTER REMOVAL KIDNEY STONE. Date of Last Stent Placement:: November 2013 Past Psychological History: No Psychological Hx Reported Additional Psychological History / Comment(s): . Smoking Status: Never smoker Past Alcohol Use History: None Reported Additional Past Alcohol Use History / Comment(s): . Past Drug Use History: None Reported - Past Family History Father Family Medical History: No Reported History Additional Family Medical History / Comment(s): . Mother Family Medical History: Cancer Additional Family Medical History / Comment(s): bladder Physical Examination Vital Signs Temp Pulse Resp BP Pulse Ox 01/08/17 12:00 69 16 124/58 87 L 01/08/17 08:51 97.7 F 67 20 150/62 94 L Intake and Output 01/07/17 01/08/17 01/08/17 22:59 06:59 14:59 Other: Weight 116.6 kg Patient Weight 01/09/17 06:59 Weight 116.6 kg Results 01/08/17 09:28 Comprehensive Metabolic Panel 01/08/17 Range/Units 09:28 Sodium 142 (137-145) mmol/L Potassium 4.4 (3.5-5.1) mmol/L Chloride 107 (98-107) mmol/L Carbon Dioxide 23 (22-30) mmol/L BUN 14 (7-17) mg/dL Creatinine 0.80 (0.52-1.04) mg/dL Glucose 102 H (74-99) mg/dL Calcium 8.2 L (8.4-10.2) mg/dL Current Medications Generic Name Dose Route Start Last Admin Trade Name Freq PRN Reason Stop Dose Admin Amlodipine Besylate 10 mg 01/09/17 09:00 Norvasc PO DAILY [facility] Aspirin 81 mg 01/09/17 09:00 Aspirin PO DAILY [facility] Digoxin 250 mcg 01/09/17 09:00 Lanoxin PO DAILY [facility] Edoxaban 60 mg 01/09/17 09:00 Savaysa PO DAILY [facility] Magnesium Sulfate/Dextrose 1 100 mls @ 100 mls/hr 01/08/17 14:00 gm/ IV Solution IVPB 01/08/17 15:59 Q1H [facility] Metformin HCl 850 mg 01/08/17 17:30 Glucophage PO BID-W/MEALS [facility] Metoprolol Tartrate 25 mg 01/08/17 21:00 Lopressor PO BID [facility] Intake and Output 01/07/17 01/08/17 01/08/17 22:59 06:59 14:59 Other: Weight 116.6 kg Patient Weight 01/09/17 06:59 Weight 116.6 kg 01/08/17 09:28
[2017-01-08 18:31] LABS: ABG HCO3 23 mmol/L (21-25); ABG PCO2 31 mmHg (35-45); ABG PH 7.47 (7.35-7.45); ABG PO2 68 mmHg (83-108)
[2017-01-08 18:32] LABS: ABG Base Excess -0.5 mmol/L; ABG TCO2 24 mmol/L (19-24)
[2017-01-08] MEDS ORDERED: Magnesium Replacement Protocol 1 EACH MISC MISCELLANE PRN (20:27)
--- NOTE | 2017-01-08 20:45 | US ---
EXAMINATION TYPE: US venous doppler duplex LE BI DATE OF EXAM: 01/08/2017 8:33 PM COMPARISON: NONE CLINICAL HISTORY: hypoxia. SIDE PERFORMED: Bilateral TECHNIQUE: The lower extremity deep venous system is examined utilizing real time linear array sonog carlos alberto with graded compression, doppler sonography and color-flow sonography. VESSELS IMAGED: External Iliac Vein (EIV) Common Femoral Vein Deep Femoral Vein Greater Saphenous Vein * Femoral Vein Popliteal Vein Small Saphenous Vein * Proximal Calf Veins (* superficial vessels) Right Leg: Negative for DVT Left Leg: Negative for DVT No evidence of DVT bilaterally IMPRESSION: Normal exam. No evidence of deep venous thrombosis in both legs.
[2017-01-08 20:59] LABS: Glucose,Whole Blood 158 mg/dL (75-99)
[2017-01-08] MEDS: FUROSEMIDE 10 MG/ML 4 ML VIAL IV SCH (21:10)
[2017-01-08] MEDS: METOPROLOL TARTRATE 25 MG TAB PO SCH (21:11)
[2017-01-09] MEDS: METOPROLOL TARTRATE 25 MG TAB PO SCH ×3 (04:35→20:46)
[2017-01-09] MEDS: DIGOXIN 250 MCG TAB PO SCH (05:52)
[2017-01-09 05:59] LABS: Glucose,Whole Blood 144 mg/dL (75-99)
[2017-01-09] MEDS: metFORMIN 850 MG TAB PO SCH ×2 (06:34→17:46)
[2017-01-09] MEDS ORDERED: Magnesium Replacement Protocol 1 EACH MISC MISCELLANE PRN (07:13)
[2017-01-09 07:32] LABS: Anion Gap 12 mmol/L; Blood Urea Nitrogen 14 mg/dL (7-17); Calcium 8.7 mg/dL (8.4-10.2); Carbon Dioxide 23 mmol/L (22-30); Chloride 105 mmol/L (98-107); Glucose 153 mg/dL (74-99); Non-African American GFR(MDRD) >60 (>60 ml/min/1.73 sqM); Potassium 4.3 mmol/L (3.5-5.1); Sodium 140 mmol/L (137-145)
[2017-01-09] MEDS: MAGNESIUM SULFATE-D5W PMX 1 GM in DEXTROSE/WATER 1 100ML.BAG IVPB SCH ×2 (07:52→12:11)
--- NOTE | 2017-01-09 08:07 | CT ---
EXAMINATION TYPE: CT chest wo con DATE OF EXAM: 01/09/2017 COMPARISON: 01/08/2017 CT thorax HISTORY: Patient complains of difficulty breathing. High resolution protocol. CT DLP: 253 mGycm. Automated Exposure Control for Dose Reduction was Utilized. TECHNIQUE: CT scan of the thorax is performed without IV contrast. FINDINGS: LUNGS: Degree of atelectasis at the lung bases has improved in the interim. Previously seen dependent small pleural effusions with associated minimal compressive atelectasis have also improved in the in terim. There is no evidence of interstitial lung disease, honeycombing, or interseptal lobular thicke damon. Few scattered areas of subsegmental groundglass opacity most likely relate to atelectasis. No b ronchiectasis or peribronchial thickening are noted. Small peripheral groundglass nodule within the i nferior segment of the right lower lobe on series 4 image 28 measures 5 mm and relates atelectasis as this is only seen on the prone imaging. There is no evidence of air trapping. 6 mm pleural-based pul monary nodule is seen along the interlobar fissure on series 8 image 14. No pneumothorax. The tracheo bronchial tree is patent. MEDIASTINUM: Lack of IV contrast is noted to limit evaluation for mediastinal and especially hilar ad enopathy. There are no definitive greater than 1 cm hilar or mediastinal lymph nodes. Cardiomegaly is redemonstrated with no pericardial effusion. Coronary artery calcifications, thoracic aorta atherosc lerotic calcifications and three-vessel coronary artery calcifications are noted. OTHER: Numerous calcifications within the kidneys are likely related to renal artery calcifications a s they appear linear and moderate degree of atherosclerosis is seen of the branches of the abdominal aorta and the upper limited abdominal images. Degenerative changes are appreciated of the thoracic sp ine.. IMPRESSION: 1. Improving small pleural effusions and associated compressive atelectasis. 2. No evidence of interstitial lung disease, bronchiectasis, or air-trapping. 3. 6 mm pleural-based left upper lobe pulmonary nodule. Follow-up CT could be performed in 6-12 month s for further evaluation.
[2017-01-09 08:38] LABS: Hemoglobin A1C 6.7 % (4.2-6.1)
[2017-01-09] MEDS: amLODIPine 10 MG TAB PO SCH (09:00)
[2017-01-09] MEDS ORDERED: METOPROLOL TARTRATE 50 MG TAB PO SCH (09:00)
[2017-01-09] MEDS: EDOXABAN TOSYLATE 60 MG TABLET PO SCH (09:01)
[2017-01-09] MEDS: ASPIRIN 81 MG CHEW PO SCH (09:01)
--- NOTE | 2017-01-09 10:40 | P.PN ---
Subjective Patient sitting at side of bed states she was unable to sleep secondary to Lasix administration. Atrial fibrillation noted again. Dr. Kern aware Objective - Vital Signs Vital signs: Vital Signs Temp 97.2 F L 01/09/17 08:00 Pulse 134 H 01/09/17 08:00 Resp 17 01/09/17 08:00 BP 118/82 01/09/17 08:00 Pulse Ox 94 L 01/09/17 08:00 Intake & Output 01/08/17 01/09/17 01/09/17 18:59 06:59 18:59 Intake Total 360 200 337 Output Total 400 4450 Balance -40 -4250 337 Weight 116.6 kg 114.2 kg Intake: Intake, IV Titration 200 Amount Magnesium Sulfate-D5w Pmx 100 1 gm In Dextrose/Water 1 100ml.bag @ 100 mls/hr IVPB Q1H [facility] Rx#: [id number] Magnesium Sulfate-D5w Pmx 100 1 gm In Dextrose/Water 1 100ml.bag @ 100 mls/hr IVPB Q1H [facility] Rx#: [id number] Oral 360 337 Output: Urine 400 4450 Other: Voiding Method Toilet # Voids 1 - Constitutional General appearance: Present: morbidly obese - EENT Eyes: Present: PERRLA Ears: bilateral: normal - Neck Neck: Present: normal ROM - Respiratory Respiratory: bilateral: diminished - Cardiovascular Rhythm: irregularly irregular - Peripheral edema leg Peripheral Edema: bilateral: 2+ - Gastrointestinal General gastrointestinal: Present: soft - Integumentary Integumentary: Present: normal - Neurologic Neurologic: Present: CNII-XII intact - Musculoskeletal Musculoskeletal: Present: generalized weakness - Psychiatric Psychiatric: Present: A&O x's 3, appropriate affect, intact judgment & insight - Labs CBC & Chem 7: 01/09/17 05:42 Labs: Abnormal Lab Results - Last 24 Hours (Table) 01/08/17 01/08/17 01/08/17 Range/Units 11:46 14:20 16:57 ABG pH (7.35-7.45) ABG pCO2 (35-45) mmHg ABG pO2 (83-108) mmHg Glucose (74-99) mg/dL POC Glucose (mg/dL) 132 H 128 H (75-99) mg/dL Hemoglobin A1c (4.2-6.1) % Magnesium 1.1 L (1.6-2.3) mg/dL 01/08/17 01/08/17 01/09/17 Range/Units 18:25 20:57 05:39 ABG pH 7.47 H (7.35-7.45) ABG pCO2 31 L (35-45) mmHg ABG pO2 68 L (83-108) mmHg Glucose (74-99) mg/dL POC Glucose (mg/dL) 158 H (75-99) mg/dL Hemoglobin A1c (4.2-6.1) % Magnesium 1.5 L (1.6-2.3) mg/dL 01/09/17 01/09/17 01/09/17 Range/Units 05:42 05:42 05:56 ABG pH (7.35-7.45) ABG pCO2 (35-45) mmHg ABG pO2 (83-108) mmHg Glucose 153 H (74-99) mg/dL POC Glucose (mg/dL) 144 H (75-99) mg/dL Hemoglobin A1c 6.7 H (4.2-6.1) % Magnesium (1.6-2.3) mg/dL - Imaging and Cardiology CT scan - chest: report reviewed Assessment and Plan Plan: Assessment Paroxysmal atrial fibrillation post ablation 12/26/2016 Morbid obesity Pulmonary hypertension with pleural effusion History of coronary disease with stents to the right PDA diabetes type 2 Hyperlipidemia Osteoarthritis Hypertension Hypo-magnesium replacement protocol Chronic venous stasis lower extremities Plan Continue consultation with pulmonology We'll continue to monitor patient condition
--- NOTE | 2017-01-09 12:21 | P.PN ---
Subjective Principal diagnosis: Atrial fibrillation This is a 66-year-old female who was admitted to the hospital for management of atrial fibrillation which occurred after PCI. Her main symptoms were exertional shortness of breath. She has also been experiencing diarrhea stools at home prior to coming in. Patient was on amiodarone for some time. Initially the thought was to place the patient on a Tikosyn. Patient did convert to normal sinus rhythm, and has been in and out of atrial fibrillation. Because the atrial fibrillation is paroxysmal, and the decision was made not to use Tikosyn in her case. Today we will start the patient on Rythmol. We will increase the dose of beta sergey to 50 mg by mouth 3 times a day today and increase the Aldactone to 50 mg daily. She is also on Lasix and Aldactone which Dr. Kern spoke with her today about and encouraged her to take on a regular basis. Blood pressure 132/80, heart rate 120, 96% on 2 L. Sodium 140, potassium 4.3, chloride 105, CO2 23, BUN 14, creatinine 0.8. Magnesium level I.5 being replaced. Objective - Vital Signs Vital signs: Vital Signs Temp 97.2 F L 01/09/17 11:50 Pulse 129 H 01/09/17 11:50 Resp 16 01/09/17 11:50 BP 132/84 01/09/17 11:50 Pulse Ox 96 01/09/17 11:50 Intake & Output 01/08/17 01/09/17 01/09/17 18:59 06:59 18:59 Intake Total 360 200 337 Output Total 400 4450 Balance -40 -4250 337 Weight 116.6 kg 114.2 kg Intake: Intake, IV Titration 200 Amount Magnesium Sulfate-D5w Pmx 100 1 gm In Dextrose/Water 1 100ml.bag @ 100 mls/hr IVPB Q1H [facility] Rx#: [id number] Magnesium Sulfate-D5w Pmx 100 1 gm In Dextrose/Water 1 100ml.bag @ 100 mls/hr IVPB Q1H [facility] Rx#: [id number] Oral 360 337 Output: Urine 400 4450 Other: Voiding Method Toilet # Voids 1 - Exam PHYSICAL EXAMINATION: HEENT: Head is atraumatic, normocephalic. Pupils equal, round. Neck is supple. There is no elevated jugular venous pressure. HEART EXAMINATION: Heart S1 and S2 irregularly irregular CHEST EXAMINATION: Lungs are clear with fine crackles to the bases. ABDOMEN: Soft, nontender. Bowel sounds are heard. No organomegaly noted. EXTREMITIES: 2+ peripheral pulses with no evidence of peripheral edema and no calf tenderness noted. NEUROLOGIC patient is awake, alert and oriented -3. . - Labs CBC & Chem 7: 01/09/17 05:42 Labs: Abnormal Lab Results - Last 24 Hours (Table) 01/08/17 01/08/17 01/08/17 Range/Units 14:20 16:57 18:25 ABG pH 7.47 H (7.35-7.45) ABG pCO2 31 L (35-45) mmHg ABG pO2 68 L (83-108) mmHg Glucose (74-99) mg/dL POC Glucose (mg/dL) 128 H (75-99) mg/dL Hemoglobin A1c (4.2-6.1) % Magnesium 1.1 L (1.6-2.3) mg/dL 01/08/17 01/09/17 01/09/17 Range/Units 20:57 05:39 05:42 ABG pH (7.35-7.45) ABG pCO2 (35-45) mmHg ABG pO2 (83-108) mmHg Glucose (74-99) mg/dL POC Glucose (mg/dL) 158 H (75-99) mg/dL Hemoglobin A1c 6.7 H (4.2-6.1) % Magnesium 1.5 L (1.6-2.3) mg/dL 01/09/17 01/09/17 Range/Units 05:42 05:56 ABG pH (7.35-7.45) ABG pCO2 (35-45) mmHg ABG pO2 (83-108) mmHg Glucose 153 H (74-99) mg/dL POC Glucose (mg/dL) 144 H (75-99) mg/dL Hemoglobin A1c (4.2-6.1) % Magnesium (1.6-2.3) mg/dL Assessment and Plan (1) Paroxysmal a-fib Status: Acute (2) CAD (coronary artery disease) Status: Acute (3) Diabetes Status: Acute (4) Hyperlipemia Status: Acute (5) Hypomagnesemia Status: Acute (6) Obesity Status: Acute (7) Sleep apnea Status: Acute Plan: From cardiology's perspective, we'll increase patient's dose of Aldactone and beta sergey. Add Rythmol 150 mg by mouth 3 times a day. Medication regime. Patient has also been encouraged regarding the importance of taking her Lasix to reduce her pressures we will continue to monitor the patient for another 24- 48 hours. DNP note has been reviewed, I agree with a documented findings and plan of care. Patient was seen and examined.
[2017-01-09] MEDS: FUROSEMIDE 10 MG/ML 4 ML VIAL IV SCH ×2 (13:55→17:42)
[2017-01-09] MEDS: PROPAFENONE 150 MG TAB PO SCH ×3 (13:55→20:43)
[2017-01-09] MEDS: SPIRONOLACTONE 25 MG TAB PO SCH (13:55)
--- NOTE | 2017-01-09 14:05 | P.PN ---
Subjective Please see full dictation by Dr. gold Patient was admitted for management of atrial fibrillation yesterday but she was in sinus rhythm but she was still complaining of shortness of breath and was diuresed. 4 L of urine output with IV Lasix and less than one day This corresponds to her LVEDP of 30 mmHg This morning at about 5:00 she went back into atrial fibrillation with RVR and became more symptomatic Blood pressure is well controlled Impression Chronic diastolic heart failure with preserved LV systolic function Known coronary artery disease status post stenting greater than 5 years back, last stress test in 2013 Persistent atrial fibrillation status post pulmonary vein isolation Now she has recurrent atrial fibrillation Low magnesium on account of chronic diarrhea, recent 1.1 Suggest Lasix 80 mg by mouth daily along with spironolactone 50 mrem in the morning Rythmol 150 mg thrice daily Ischemia workup on class on antiarrhythmic drug therapy Objective - Vital Signs Vital signs: Vital Signs Temp 97.2 F L 01/09/17 11:50 Pulse 129 H 01/09/17 11:50 Resp 16 01/09/17 11:50 BP 132/84 01/09/17 11:50 Pulse Ox 96 01/09/17 11:50 Intake & Output 01/08/17 01/09/17 01/09/17 18:59 06:59 18:59 Intake Total 360 200 557 Output Total 400 4450 Balance -40 -4250 557 Weight 116.6 kg 114.2 kg Intake: Intake, IV Titration 200 Amount Magnesium Sulfate-D5w Pmx 100 1 gm In Dextrose/Water 1 100ml.bag @ 100 mls/hr IVPB Q1H [facility] Rx#: [id number] Magnesium Sulfate-D5w Pmx 100 1 gm In Dextrose/Water 1 100ml.bag @ 100 mls/hr IVPB Q1H [facility] Rx#: [id number] Oral 360 557 Output: Urine 400 4450 Other: Voiding Method Toilet # Voids 1 - Labs CBC & Chem 7: 01/09/17 05:42 Labs: Abnormal Lab Results - Last 24 Hours (Table) 01/08/17 01/08/17 01/08/17 Range/Units 14:20 16:57 18:25 ABG pH 7.47 H (7.35-7.45) ABG pCO2 31 L (35-45) mmHg ABG pO2 68 L (83-108) mmHg Glucose (74-99) mg/dL POC Glucose (mg/dL) 128 H (75-99) mg/dL Hemoglobin A1c (4.2-6.1) % Magnesium 1.1 L (1.6-2.3) mg/dL 01/08/17 01/09/17 01/09/17 Range/Units 20:57 05:39 05:42 ABG pH (7.35-7.45) ABG pCO2 (35-45) mmHg ABG pO2 (83-108) mmHg Glucose (74-99) mg/dL POC Glucose (mg/dL) 158 H (75-99) mg/dL Hemoglobin A1c 6.7 H (4.2-6.1) % Magnesium 1.5 L (1.6-2.3) mg/dL 01/09/17 01/09/17 Range/Units 05:42 05:56 ABG pH (7.35-7.45) ABG pCO2 (35-45) mmHg ABG pO2 (83-108) mmHg Glucose 153 H (74-99) mg/dL POC Glucose (mg/dL) 144 H (75-99) mg/dL Hemoglobin A1c (4.2-6.1) % Magnesium (1.6-2.3) mg/dL
[2017-01-09 14:07] LABS: Glucose,Whole Blood 156 mg/dL (75-99)
--- NOTE | 2017-01-09 15:10 | P.PN ---
Subjective This is a very pleasant 66-year-old female patient who follows with Dr. Edgardo Juarez is her primary care physician. She has a history of diabetes mellitus, hypertension, hyperlipidemia, diabetes mellitus, type II, chronic venous stasis of the lower extremities with ulceration, coronary artery disease with previous stent placement to the right PDA in 2013. She has has a history of atrial fibrillation and has failed flecainide and had abnormal LFTs on amiodarone. She has been anticoagulated with Savaysa. On 12/24/2016 she had undergone an atrial fibrillation for pulmonary vein isolation by Dr. Kern. She has maintained normal sinus rhythm since then. The patient has had ongoing complaints of dyspnea on minimal exertion which was felt to be secondary to paroxysmal atrial fibrillation however recently the patient's shortness of breath has been worse and she was brought here today for possible Tikosyn loading. She is found to be continued in normal sinus rhythm and it is felt her significant shortness of breath is not related to cardiac arrhythmias. We' re consulted for the same. The patient is a lifelong nonsmoker. No history of asthma. No emphysema. No inhalers. The patient does have clinical features of obstructive sleep apnea and the plans were sleep study in the outpatient setting. Her most recent chest x-ray also considered possible pulmonary artery hypertension. Her most recent echocardiogram via [facility] revealed an RVSP of 36 mmHg. There was no shunting across the anterior atrial septum. There was some biatrial enlargement. Normal left ventricular size and systolic function. No other significant findings. The patient is seen today in consultation on the selective care unit. She is awake and alert in no acute distress. She did desaturate into the low 80s on a brief walk without oxygen. She is quite dyspneic on minimal exertion. She has been compliant with her Savaysa. On 01/09/2017, the patient is being seen in follow-up. She remains and it sinus rhythm. I performed a high resolution computed tomography scan of the chest on her yesterday and the findings showed small but improving pleural effusions and compressive atelectasis in the lung bases. There was dependent small pleural effusion bilaterally. No evidence of any interstitial lung disease, honeycomb Evarts intraseptal lobular thickening. Few scattered areas of groundglass changes was seen. No pneumothorax. No other major abnormalities noted. I suspect that the patient's ongoing shortness of breath was still related to underlying CHF knowing that she has an elevated left ventricle end-diastolic pressure which probably was getting worse and she was going further into failure with atrial fibrillation. Fortunately her cardiac rhythm is sinus for now. I started on Lasix 40 mg every 12 hours and over the past 12-24 hours the patient has diuresed more than 4 L. Breathing is improved and currently she is on room air oxygen. No chest pain. Lower extremity edema is slightly improved compared to yesterday. The patient's breathing is much easier compared to yesterday. She remains on anticoagulation. No concerns for pulmonary embolism at this point. Objective - Vital Signs Vital signs: Vital Signs Temp 97.2 F L 01/09/17 11:50 Pulse 129 H 01/09/17 11:50 Resp 16 01/09/17 11:50 BP 132/84 01/09/17 11:50 Pulse Ox 96 01/09/17 11:50 Intake & Output 01/08/17 01/09/17 01/09/17 18:59 06:59 18:59 Intake Total 937 061 0790 Output Total 400 4450 Balance -40 -4250 1357 Weight 116.6 kg 114.2 kg Intake: Intake, IV Titration 200 200 Amount Magnesium Sulfate-D5w Pmx 100 1 gm In Dextrose/Water 1 100ml.bag @ 100 mls/hr IVPB Q1H [facility] Rx#: [id number] Magnesium Sulfate-D5w Pmx 100 1 gm In Dextrose/Water 1 100ml.bag @ 100 mls/hr IVPB Q1H [facility] Rx#: [id number] Magnesium Sulfate-D5w Pmx 200 1 gm In Dextrose/Water 1 100ml.bag @ 100 mls/hr IVPB Q1H [facility] Rx#: [id number] Oral 360 1157 Output: Urine 400 4450 Other: Voiding Method Toilet # Voids 1 - Exam GENERAL EXAM: Obese. Alert, fairly comfortable in no apparent distress. HEAD: Normocephalic. EYES: Normal reaction of pupils, equal size. NOSE: Clear with pink turbinates. THROAT: There is crowding the posterior pharynx. No erythema or exudates. NECK: Short. No masses, no JVD. CHEST: No chest wall deformity. LUNGS: Equal air entry with crackles in the left posterior base. CVS: S1 and S2 normal with no audible murmurs, regular rhythm. ABDOMEN: No hepatosplenomegaly, normal bowel sounds, no guarding or rigidity. SPINE: No scoliosis or deformity SKIN: Open sores of the left lower extremity. Changes of chronic venous stasis. CENTRAL NERVOUS SYSTEM: No focal deficits, tone is normal in all 4 extremities. Extremities: There is 1-2+ lower extremity peripheral edema. No clubbing, no cyanosis. Peripheral pulses are intact. - Labs CBC & Chem 7: 01/09/17 05:42 Labs: Abnormal Lab Results - Last 24 Hours (Table) 01/08/17 01/08/17 01/08/17 Range/Units 16:57 18:25 20:57 ABG pH 7.47 H (7.35-7.45) ABG pCO2 31 L (35-45) mmHg ABG pO2 68 L (83-108) mmHg Glucose (74-99) mg/dL POC Glucose (mg/dL) 128 H 158 H (75-99) mg/dL Hemoglobin A1c (4.2-6.1) % Magnesium (1.6-2.3) mg/dL 01/09/17 01/09/17 01/09/17 Range/Units 05:39 05:42 05:42 ABG pH (7.35-7.45) ABG pCO2 (35-45) mmHg ABG pO2 (83-108) mmHg Glucose 153 H (74-99) mg/dL POC Glucose (mg/dL) (75-99) mg/dL Hemoglobin A1c 6.7 H (4.2-6.1) % Magnesium 1.5 L (1.6-2.3) mg/dL 01/09/17 01/09/17 Range/Units 05:56 11:31 ABG pH (7.35-7.45) ABG pCO2 (35-45) mmHg ABG pO2 (83-108) mmHg Glucose (74-99) mg/dL POC Glucose (mg/dL) 144 H 156 H (75-99) mg/dL Hemoglobin A1c (4.2-6.1) % Magnesium (1.6-2.3) mg/dL Assessment and Plan Plan: Impression: #1 Acute hypoxic respiratory failure , improving with diuresis. The patient is a negative fluid balance is 4 L. Clinically improved. Oxygenation is improved. It's likely that the patient was having CHF with elevated Levaquin diastolic pressure and possibly some mild right-sided heart failure in addition contiguity to shortness of breath and further exacerbated by atrial fibrillation. In terms of her lungs, there may be some restriction secondary to obesity yet that is no other parenchymal lung disease based on the high resolution computed tomography scan of the chest and possibility of pulmonary embolism is quite low based on the fact that the patient has been maintained on into cognition for an extended time. She is improving. #2 Paroxysmal atrial fibrillation status post ablation and PVI 12/26/2016, currently in normal sinus rhythm. #3 Morbid obesity. #4 Coronary artery disease with previous stent placement to the right PDA in 2013. #5 Diabetes mellitus, type II. #6 Hyperlipidemia. #7 Hypertension. #8 Osteoarthritis. #9 History of rectal bleed. #10 Chronic venous stasis of the lower extremities. #11 History of nephrolithiasis. Plan Continue diuresis. Monitor electrolytes. Monitor fluid balance and body weight. As discussed with Dr. Parada.
[2017-01-09 16:39] LABS: Glucose,Whole Blood 149 mg/dL (75-99)
[2017-01-09 21:03] LABS: Glucose,Whole Blood 130 mg/dL (75-99)
[2017-01-10 05:53] LABS: Glucose,Whole Blood 162 mg/dL (75-99)
[2017-01-10] MEDS: metFORMIN 850 MG TAB PO SCH ×2 (06:29→18:06)
[2017-01-10] MEDS: ASPIRIN 81 MG CHEW PO SCH (08:55)
[2017-01-10] MEDS: amLODIPine 10 MG TAB PO SCH (08:55)
[2017-01-10] MEDS: METOPROLOL TARTRATE 25 MG TAB PO SCH (08:56)
[2017-01-10] MEDS: DIGOXIN 250 MCG TAB PO SCH (08:56)
[2017-01-10] MEDS: FUROSEMIDE 80 MG TAB PO SCH (08:56)
[2017-01-10] MEDS: EDOXABAN TOSYLATE 60 MG TABLET PO SCH (08:56)
[2017-01-10] MEDS: PROPAFENONE 150 MG TAB PO SCH ×3 (08:57→21:22)
[2017-01-10] MEDS: SPIRONOLACTONE 25 MG TAB PO SCH (08:57)
[2017-01-10 09:13] VITALS: RESP 18
--- NOTE | 2017-01-10 09:13 | P.PN ---
Subjective Patient is doing well. She had a good night. However she was in A. fib all through the night. This morning she came off telemetry and took a shower and when she came out she was in sinus rhythm in the 60s and 70s. On examination, she is afebrile 90F blood pressure 123/64 mmHg Breath sounds are reduced bilaterally but air entry is improved with no crackles no rhonchi Heart sounds are soft and normal no murmurs or gallops Abdomen is soft Patient went back into sinus rhythm in the last hour. She is on Rythmol 150 mg 3 times a day Impression Persistent atrial fibrillation status post pulmonary vein isolation several weeks back, complete isolation of the veins but atrial fibrillation persisted and she was cardioverted at the end of the procedure. Left atrial pressures were 30 mmHg, right atrial pressures were in the mid 20s She came back to the office and was in atrial fibrillation She was admitted for management of atrial fibrillation with antiarrhythmic drug loading but that day she was in sinus rhythm. Change in character of atrial fibrillation from persistent now to paroxysmal after antral isolation of the pulmonary veins, very low magnesium of 1.1 secondary to diarrhea, that are being worked up by internal medicine She was very short of breath with mild exertion while in sinus rhythm on the day of admission. Her resting pulse ox was 87% and with a very short walk it dropped quickly to 84%, in sinus rhythm on the day of admission She barely walk 100 feet and was visibly short of breath Subsequently she was diuresed with IV Lasix and within one day she put out almost 4 L of urine output Thereafter she went back into atrial fibrillation and felt worse (atrial fibrillation with underlying chronic diastolic heart failure) Yesterday she was started on Rythmol 150 mg 3 times a day This morning between 7:30 and 8:30 AM she went back into sinus rhythm. Prior to that she stated that she was felt very well at night and had a comfortable and restful night. Telemetry documents atrial fibrillation at that time. In sinus rhythm today she performed a salmeron walk and for the first time she was able to walk the entire length of the hallway from one to the other comfortably without getting visibly short of breath. Her resting pulse ox was 97% and it remained stable. She was not hypoxic with a salmeron walk anymore, once again in sinus rhythm within less than an hour of converting to sinus rhythm Suggest Lasix 80 mg by mouth daily along with Aldactone 50 mg by mouth daily Continue metoprolol tartrate 100 mg by mouth twice a day Continue Rythmol 150 mrem 3 times a day Diabetes management per Dr. Juarez Continue Edoxaban I will reduce the dose of digoxin to 0.125 g by mouth daily Amlodipine 5 hypertension management will continue Final impression Chronic diastolic heart failure with elevated left atrial pressures greater than right atrial pressures and evidence of pulmonary venous congestion on admission while in sinus rhythm Worsening of symptoms during recurrences of atrial fibrillation consistent with loss of atrial kick with underlying diastolic failure Improvement in the salmeron walk as well as symptoms as well as oxygenation after diuresis, both times the salmeron walk performed in sinus rhythm Watch for sinus bradycardia and chronotropic incompetence Objective - Vital Signs Vital signs: Vital Signs Temp 98.1 F 01/10/17 07:45 Pulse 116 H 01/10/17 07:45 Resp 18 01/10/17 07:45 BP 119/60 01/10/17 07:45 Pulse Ox 96 01/10/17 07:45 Intake & Output 01/09/17 01/10/17 01/10/17 18:59 06:59 18:59 Intake Total 1537 Output Total 1050 600 Balance 1537 -1050 -600 Weight 112.3 kg Intake: Intake, IV Titration 200 Amount Magnesium Sulfate-D5w Pmx 200 1 gm In Dextrose/Water 1 100ml.bag @ 100 mls/hr IVPB Q1H [facility] Rx#: [id number] Oral 1337 Output: Urine 1050 600 Other: Voiding Method Toilet # Voids 4 2 - Labs CBC & Chem 7: 01/09/17 05:42 Labs: Abnormal Lab Results - Last 24 Hours (Table) 01/09/17 01/09/17 01/09/17 Range/Units 11:31 16:23 21:02 POC Glucose (mg/dL) 156 H 149 H 130 H (75-99) mg/dL 01/10/17 Range/Units 05:52 POC Glucose (mg/dL) 162 H (75-99) mg/dL
[2017-01-10 11:38] LABS: Glucose,Whole Blood 172 mg/dL (75-99)
--- NOTE | 2017-01-10 12:48 | P.PN ---
Subjective Principal diagnosis: Patient states improvement after diuresing 4 L of fluid. Objective - Vital Signs Vital signs: Vital Signs Temp 98.1 F 01/10/17 07:45 Pulse 65 01/10/17 09:13 Resp 18 01/10/17 09:13 BP 119/60 01/10/17 07:45 Pulse Ox 96 01/10/17 09:13 Intake & Output 01/09/17 01/10/17 01/10/17 18:59 06:59 18:59 Intake Total 1537 120 Output Total 1050 600 Balance 1537 -1050 -480 Weight 112.3 kg Intake: Intake, IV Titration 200 Amount Magnesium Sulfate-D5w Pmx 200 1 gm In Dextrose/Water 1 100ml.bag @ 100 mls/hr IVPB Q1H [facility] Rx#: [id number] Oral 1337 120 Output: Urine 1050 600 Other: Voiding Method Toilet # Voids 4 2 - Constitutional General appearance: Present: obese - EENT Eyes: Present: PERRLA Ears: bilateral: normal - Neck Neck: Present: normal ROM - Respiratory Respiratory: bilateral: diminished - Cardiovascular Rhythm: regular - Peripheral edema leg Peripheral Edema: bilateral: 2+ - Gastrointestinal General gastrointestinal: Present: soft - Neurologic Neurologic: Present: CNII-XII intact - Musculoskeletal Musculoskeletal: Present: gait normal - Psychiatric Psychiatric: Present: A&O x's 3 - Labs CBC & Chem 7: 01/09/17 05:42 Labs: Abnormal Lab Results - Last 24 Hours (Table) 01/09/17 01/09/17 01/09/17 Range/Units 11:31 16:23 21:02 POC Glucose (mg/dL) 156 H 149 H 130 H (75-99) mg/dL 01/10/17 01/10/17 Range/Units 05:52 11:29 POC Glucose (mg/dL) 162 H 172 H (75-99) mg/dL - Imaging and Cardiology CT scan - chest: report reviewed Assessment and Plan Plan: Assessment Acute hypoxic respiratory failure secondary to diastolic dysfunction Pulmonary hypertension congestive heart failure diastolic dysfunction pleural effusion acute on chronic Paroxysmal atrial fibrillation history of abrasion Morbid obesity History of coronary disease with history of stents in the right PDA Diabetes type 2 Hyperlipidemia Hypertension Osteoarthritis Chronic venous stasis lower extremities Hypo-magnesium replaced Plan Continue consultation with pulmonology and cardiology
--- NOTE | 2017-01-10 13:49 | P.PN ---
Subjective This is a very pleasant 66-year-old female patient who follows with Dr. Edgardo Juarez is her primary care physician. She has a history of diabetes mellitus, hypertension, hyperlipidemia, diabetes mellitus, type II, chronic venous stasis of the lower extremities with ulceration, coronary artery disease with previous stent placement to the right PDA in 2013. She has has a history of atrial fibrillation and has failed flecainide and had abnormal LFTs on amiodarone. She has been anticoagulated with Savaysa. On 12/24/2016 she had undergone an atrial fibrillation for pulmonary vein isolation by Dr. Kern. She has maintained normal sinus rhythm since then. The patient has had ongoing complaints of dyspnea on minimal exertion which was felt to be secondary to paroxysmal atrial fibrillation however recently the patient's shortness of breath has been worse and she was brought here today for possible Tikosyn loading. She is found to be continued in normal sinus rhythm and it is felt her significant shortness of breath is not related to cardiac arrhythmias. We' re consulted for the same. The patient is a lifelong nonsmoker. No history of asthma. No emphysema. No inhalers. The patient does have clinical features of obstructive sleep apnea and the plans were sleep study in the outpatient setting. Her most recent chest x-ray also considered possible pulmonary artery hypertension. Her most recent echocardiogram via [facility] revealed an RVSP of 36 mmHg. There was no shunting across the anterior atrial septum. There was some biatrial enlargement. Normal left ventricular size and systolic function. No other significant findings. The patient is seen today in consultation on the selective care unit. She is awake and alert in no acute distress. She did desaturate into the low 80s on a brief walk without oxygen. She is quite dyspneic on minimal exertion. She has been compliant with her Savaysa. On 01/09/2017, the patient is being seen in follow-up. She remains and it sinus rhythm. I performed a high resolution computed tomography scan of the chest on her yesterday and the findings showed small but improving pleural effusions and compressive atelectasis in the lung bases. There was dependent small pleural effusion bilaterally. No evidence of any interstitial lung disease, honeycomb [place] intraseptal lobular thickening. Few scattered areas of groundglass changes was seen. No pneumothorax. No other major abnormalities noted. I suspect that the patient's ongoing shortness of breath was still related to underlying CHF knowing that she has an elevated left ventricle end-diastolic pressure which probably was getting worse and she was going further into failure with atrial fibrillation. Fortunately her cardiac rhythm is sinus for now. I started on Lasix 40 mg every 12 hours and over the past 12-24 hours the patient has diuresed more than 4 L. Breathing is improved and currently she is on room air oxygen. No chest pain. Lower extremity edema is slightly improved compared to yesterday. The patient's breathing is much easier compared to yesterday. She remains on anticoagulation. No concerns for pulmonary embolism at this point. On 01/10/2017, the patient is even less short of breath compared to yesterday. She is responding massive diuretics. She walked the salmeron and tired hallway and she maintain her pulse ox above 95%. The lower extremities edema is improving. She is producing adequate amount of urine output. She was switched to oral Lasix. Note that her cardiac rhythm is still sinus. She was placed on Rythmol 150 mg by mouth 3 times a day. She is also on metoprolol 100 mg by mouth twice a day. Her anticoagulation is savaysa Objective - Vital Signs Vital signs: Vital Signs Temp 98.1 F 01/10/17 07:45 Pulse 65 01/10/17 09:13 Resp 18 01/10/17 09:13 BP 119/60 01/10/17 07:45 Pulse Ox 96 01/10/17 09:13 Intake & Output 01/09/17 01/10/17 01/10/17 18:59 06:59 18:59 Intake Total 1537 360 Output Total 1050 600 Balance 1537 -1050 -240 Weight 112.3 kg Intake: Intake, IV Titration 200 Amount Magnesium Sulfate-D5w Pmx 200 1 gm In Dextrose/Water 1 100ml.bag @ 100 mls/hr IVPB Q1H [facility] Rx#: [id number] Oral 1337 360 Output: Urine 1050 600 Other: Voiding Method Toilet # Voids 4 2 - Exam GENERAL EXAM: Obese. Alert, fairly comfortable in no apparent distress. HEAD: Normocephalic. EYES: Normal reaction of pupils, equal size. NOSE: Clear with pink turbinates. THROAT: There is crowding the posterior pharynx. No erythema or exudates. NECK: Short. No masses, no JVD. CHEST: No chest wall deformity. LUNGS: Equal air entry with crackles in the left posterior base. CVS: S1 and S2 normal with no audible murmurs, regular rhythm. ABDOMEN: No hepatosplenomegaly, normal bowel sounds, no guarding or rigidity. SPINE: No scoliosis or deformity SKIN: Open sores of the left lower extremity. Changes of chronic venous stasis. CENTRAL NERVOUS SYSTEM: No focal deficits, tone is normal in all 4 extremities. Extremities: There is 1- lower extremity peripheral edema. No clubbing, no cyanosis. Peripheral pulses are intact. - Labs CBC & Chem 7: 01/09/17 05:42 Labs: Abnormal Lab Results - Last 24 Hours (Table) 01/09/17 01/09/17 01/09/17 Range/Units 11:31 16:23 21:02 POC Glucose (mg/dL) 156 H 149 H 130 H (75-99) mg/dL 01/10/17 01/10/17 Range/Units 05:52 11:29 POC Glucose (mg/dL) 162 H 172 H (75-99) mg/dL Assessment and Plan Plan: Impression: #1 Acute hypoxic respiratory failure , improving with diuresis. The patient continues to improve with diuresis. As such it's clear to me that the patient' s acute hypoxic history failure and shortness of breath was related to CHF, possible diastolic dysfunction special that she had elevated left ventricle end- diastolic pressure on previous catheterization and this was further exacerbated by episodes of atrial fibrillation. #2 Paroxysmal atrial fibrillation status post ablation , currently in normal sinus rhythm. #3 Morbid obesity. #4 Coronary artery disease with previous stent placement to the right PDA in 2013. #5 Diabetes mellitus, type II. #6 Hyperlipidemia. #7 Hypertension. #8 Osteoarthritis. #9 History of rectal bleed. #10 Chronic venous stasis of the lower extremities. #11 History of nephrolithiasis. Plan Continue diuresis. Monitor electrolytes. Monitor fluid balance and body weight. The patient is actually level is improving. She is maintaining her pulse ox is above 90% all times. She will need a sleep evaluation to later stage. She will also need to be maintained on Lasix and she was placed on 80 mg by mouth daily and she is also on a combination of Rythmol and Lopressor. Long-term savaysa for anticoagulation. Cardiac rhythm remains sinus.
[2017-01-10 16:37] LABS: Glucose,Whole Blood 171 mg/dL (75-99)
[2017-01-10] MEDS: FUROSEMIDE 10 MG/ML 4 ML VIAL IV SCH (18:03)
[2017-01-10 20:49] LABS: Glucose,Whole Blood 143 mg/dL (75-99)
[2017-01-10] MEDS ORDERED: METOPROLOL TARTRATE 50 MG TAB PO SCH (21:00)
[2017-01-11 05:58] LABS: Glucose,Whole Blood 172 mg/dL (75-99)
[2017-01-11] MEDS ORDERED: AMINOPHYLLINE 500 MG/20 ML VIAL IV PRN (06:00)
[2017-01-11] MEDS ORDERED: REGADENOSON 0.4 MG/5 ML SYRINGE IV ONE (06:00)
[2017-01-11 06:51] LABS: Anion Gap 12 mmol/L; Blood Urea Nitrogen 27 mg/dL (7-17); Calcium 9.1 mg/dL (8.4-10.2); Carbon Dioxide 24 mmol/L (22-30); Chloride 104 mmol/L (98-107); Glucose 188 mg/dL (74-99); Magnesium 1.6 mg/dL (1.6-2.3); Non-African American GFR(MDRD) 50 (>60 ml/min/1.73 sqM); Potassium 4.9 mmol/L (3.5-5.1); Sodium 140 mmol/L (137-145)
[2017-01-11] MEDS: metFORMIN 850 MG TAB PO SCH (07:05)
[2017-01-11] MEDS: ASPIRIN 81 MG CHEW PO SCH (07:45)
[2017-01-11] MEDS: SPIRONOLACTONE 25 MG TAB PO SCH (07:45)
[2017-01-11] MEDS: EDOXABAN TOSYLATE 60 MG TABLET PO SCH (07:45)
[2017-01-11] MEDS: PROPAFENONE 150 MG TAB PO SCH (07:45)
[2017-01-11] MEDS: FUROSEMIDE 80 MG TAB PO SCH (07:45)
[2017-01-11] MEDS: amLODIPine 10 MG TAB PO SCH (07:45)
[2017-01-11] MEDS ORDERED: METOPROLOL TARTRATE 50 MG TAB PO STA (07:48)
[2017-01-11] MEDS ORDERED: DIGOXIN 125 MCG TAB PO SCH (09:00)
[2017-01-11 10:15] VITALS: BP 136/67; PULSE 58; TEMP 97.1
[2017-01-11 11:48] LABS: Glucose,Whole Blood 240 mg/dL (75-99)
--- NOTE | 2017-01-11 11:54 | P.DS ---
Providers Date of admission: 01/08/17 08:01 Attending physician: Claude Kern Consults: 01/08/17 13:42 Consult Physician Stat Consulting Provider: Michael Beard Consult Reason/Comments: short of breath Do you want consulting provider notified?: Yes 01/08/17 13:59 Consult Physician Stat Consulting Provider: Edgardo Juarez Consult Reason/Comments: Diabetes Do you want consulting provider notified?: Yes 01/08/17 14:10 Consult Physician Routine Consulting Provider: Edgardo Juarez Consult Reason/Comments: diabetes Do you want consulting provider notified?: Yes 01/08/17 14:11 Consult Physician Routine Consulting Provider: Michael Beard Consult Reason/Comments: sob low pulseox Do you want consulting provider notified?: Yes Primary care physician: Edgardo Juarez [facility] Course: Patient is doing well. She is resting comfortably in a chair. Breath sounds are normal. Heart sounds are normal. The rhythm is regular. She is tolerating her medications. She diuresed very well on IV Lasix for 24 hours and put out almost 4 L and since then she has not been short of breath. Even when she was in atrial fibrillation she was lying supine in bed and had no symptoms. Subsequently on Rythmol she converted to sinus rhythm. She's been ablating in the hallways comfortably. Her magnesium was low on account of chronic diarrhea it is still 1.6. She is on Aldactone 50 g by mouth daily. The data is being worked up by her primary care physician On examination she is afebrile 97.1F, pulse rate 58 beats a minute, respirations are normal, blood pressure 136/67 mmHg 98% on room air Breath sounds are equal bilaterally no rhonchi no crackles Heart sounds S1 and S2 are soft no murmurs or gallops Abdomen is soft nontender Extended is warm there is trace edema in the left lower extremity a little more edema on the right side with a slowly healing ulcer. Impression Persistent atrial fibrillation status post successful isolation of the pulmonary veins Change in the character of atrial fibrillation paroxysmal now she spontaneously converts to sinus rhythm she was in sinus rhythm upon admission Chronic diastolic heart failure with elevated left atrial pressures of 30 mmHg and with IV diuresis within one day she lost 4 L and shows significant improvement while still in atrial fibrillation. During atrial fibrillation she does have a rapid ventricular response and becomes more symptomatic Now she is in sinus rhythm, she is on Rythmol 150 g 3 times a day Known coronary artery disease status post coronary stenting to the LAD several years back Adult-onset diabetes on insulin Hypertension Obesity, BMI 39 Today's labs are reviewed and include sodium 140, potassium 4.9, magnesium 1.6, increasing BUN to 27 and creatinine 1.1 Suggest Outpatient stress testing to rule out underlying ischemia since she is also diabetic and on a class I antiarrhythmic drug now and known underlying coronary artery disease status post stenting several years back If this is normal then she may continue with Rythmol as well as current therapy She is being discharged on Amlodipine 10 mg a day baby aspirin 81 mg a day Reduced dose of digoxin 0.125 mg by mouth daily Lasix 80 mg by mouth daily along with spironolactone 50 mrem daily Rythmol 150 mg 3 times a day Metoprolol tartrate 100 mg twice daily Follow Dr. Ralph in about 2-3 weeks Follow-up with Dr. Juarez in 2 weeks, BMP check in 2 weeks Patient Condition at Discharge: Stable Plan - Discharge Summary New Discharge Prescriptions: No Action Aspirin EC [Ecotrin Low Dose] 81 mg PO DAILY metFORMIN HCL [Metformin HCl] 850 mg PO TID SILVER sulfADIAZINE CREAM [Silvadene Cream] 1 applic TOPICAL BID PRN PRN Reason: Insulin Glargine,Hum.rec.anlog [Toujeo Solostvale] 28 units SQ HS Edoxaban Tosylate [Savaysa] 60 mg PO DAILY Liraglutide [Victoza 2-Ishan] 1.8 mg SQ DAILY amLODIPine BESYLATE [Norvasc] 10 mg PO QAM Metoprolol Tartrate [Lopressor] 25 mg PO BID Digoxin [Digitek] 250 mcg PO DAILY Discharge Medication List Aspirin EC [Ecotrin Low Dose] 81 mg PO DAILY 02/27/14 [History] metFORMIN HCL [Metformin HCl] 850 mg PO TID 01/24/15 [History] Edoxaban Tosylate [Savaysa] 60 mg PO DAILY 07/20/16 [History] Insulin Glargine,Hum.rec.anlog [Toujeo Solostar] 28 units SQ HS 07/20/16 [ History] SILVER sulfADIAZINE CREAM [Silvadene Cream] 1 applic TOPICAL BID PRN 07/20/16 [ History] Liraglutide [Victoza 2-Ishan] 1.8 mg SQ DAILY 11/09/16 [History] amLODIPine BESYLATE [Norvasc] 10 mg PO QAM 12/19/16 [History] Digoxin [Digitek] 250 mcg PO DAILY 01/08/17 [History] Metoprolol Tartrate [Lopressor] 25 mg PO BID 01/08/17 [History]
--- NOTE | 2017-01-11 18:44 | P.PN ---
Subjective This is a very pleasant 66-year-old female patient who follows with Dr. Edgardo Juarez is her primary care physician. She has a history of diabetes mellitus, hypertension, hyperlipidemia, diabetes mellitus, type II, chronic venous stasis of the lower extremities with ulceration, coronary artery disease with previous stent placement to the right PDA in 2013. She has has a history of atrial fibrillation and has failed flecainide and had abnormal LFTs on amiodarone. She has been anticoagulated with Savaysa. On 12/24/2016 she had undergone an atrial fibrillation for pulmonary vein isolation by Dr. Kern. She has maintained normal sinus rhythm since then. The patient has had ongoing complaints of dyspnea on minimal exertion which was felt to be secondary to paroxysmal atrial fibrillation however recently the patient's shortness of breath has been worse and she was brought here today for possible Tikosyn loading. She is found to be continued in normal sinus rhythm and it is felt her significant shortness of breath is not related to cardiac arrhythmias. We' re consulted for the same. The patient is a lifelong nonsmoker. No history of asthma. No emphysema. No inhalers. The patient does have clinical features of obstructive sleep apnea and the plans were sleep study in the outpatient setting. Her most recent chest x-ray also considered possible pulmonary artery hypertension. Her most recent echocardiogram via [place] revealed an RVSP of 36 mmHg. There was no shunting across the anterior atrial septum. There was some biatrial enlargement. Normal left ventricular size and systolic function. No other significant findings. The patient is seen today in consultation on the selective care unit. She is awake and alert in no acute distress. She did desaturate into the low 80s on a brief walk without oxygen. She is quite dyspneic on minimal exertion. She has been compliant with her Savaysa. On 01/09/2017, the patient is being seen in follow-up. She remains and it sinus rhythm. I performed a high resolution computed tomography scan of the chest on her yesterday and the findings showed small but improving pleural effusions and compressive atelectasis in the lung bases. There was dependent small pleural effusion bilaterally. No evidence of any interstitial lung disease, [place] intraseptal lobular thickening. Few scattered areas of groundglass changes was seen. No pneumothorax. No other major abnormalities noted. I suspect that the patient's ongoing shortness of breath was still related to underlying CHF knowing that she has an elevated left ventricle end-diastolic pressure which probably was getting worse and she was going further into failure with atrial fibrillation. Fortunately her cardiac rhythm is sinus for now. I started on Lasix 40 mg every 12 hours and over the past 12-24 hours the patient has diuresed more than 4 L. Breathing is improved and currently she is on room air oxygen. No chest pain. Lower extremity edema is slightly improved compared to yesterday. The patient's breathing is much easier compared to yesterday. She remains on anticoagulation. No concerns for pulmonary embolism at this point. On 01/10/2017, the patient is even less short of breath compared to yesterday. She is responding massive diuretics. She walked the [place] and tired hallway and she maintain her pulse ox above 95%. The lower extremities edema is improving. She is producing adequate amount of urine output. She was switched to oral Lasix. Note that her cardiac rhythm is still sinus. She was placed on Rythmol 150 mg by mouth 3 times a day. She is also on metoprolol 100 mg by mouth twice a day. Her anticoagulation is savaysa On 01/11/2017 the patient is being seen in follow-up. The patient is resting comfortably. No respiratory difficulties for now. She is emanating well. She is less short of breath. She has diuresed extremely well and she has been negative fluid balance on oral Lasix. She is on Rythmol and her cardiac rhythm is converted to sinus. She is afebrile. Lower extremity edema is also improved. The patient is being considered for home discharge. Her renal function is stable. She'll be going home on an 80 mg of Lasix dose in addition to 50 mg of Aldactone. Objective - Vital Signs Vital signs: Vital Signs Temp 97.1 F L 01/11/17 09:00 Pulse 58 L 01/11/17 09:00 Resp 18 01/11/17 09:00 BP 136/67 01/11/17 09:00 Pulse Ox 98 01/11/17 09:00 Intake & Output 01/10/17 01/11/17 01/11/17 18:59 06:59 18:59 Intake Total 360 472 Output Total 1200 700 550 Balance -840 -700 -78 Weight 112.6 kg Intake: Oral 360 472 Output: Urine 1200 700 550 Other: Voiding Method Toilet # Voids 100 1 2 - Exam GENERAL EXAM: Obese. Alert, fairly comfortable in no apparent distress. HEAD: Normocephalic. EYES: Normal reaction of pupils, equal size. NOSE: Clear with pink turbinates. THROAT: There is crowding the posterior pharynx. No erythema or exudates. NECK: Short. No masses, no JVD. CHEST: No chest wall deformity. LUNGS: Equal air entry with crackles in the left posterior base. CVS: S1 and S2 normal with no audible murmurs, regular rhythm. ABDOMEN: No hepatosplenomegaly, normal bowel sounds, no guarding or rigidity. SPINE: No scoliosis or deformity SKIN: Open sores of the left lower extremity. Changes of chronic venous stasis. CENTRAL NERVOUS SYSTEM: No focal deficits, tone is normal in all 4 extremities. Extremities: There is 1- lower extremity peripheral edema. No clubbing, no cyanosis. Peripheral pulses are intact. - Labs CBC & Chem 7: 01/11/17 06:11 Labs: Abnormal Lab Results - Last 24 Hours (Table) 01/10/17 01/11/17 01/11/17 Range/Units 20:47 05:56 06:11 BUN 27 H (7-17) mg/dL Creatinine 1.10 H (0.52-1.04) mg/dL Glucose 188 H (74-99) mg/dL POC Glucose (mg/dL) 143 H 172 H (75-99) mg/dL 01/11/17 Range/Units 11:47 BUN (7-17) mg/dL Creatinine (0.52-1.04) mg/dL Glucose (74-99) mg/dL POC Glucose (mg/dL) 240 H (75-99) mg/dL Assessment and Plan Plan: Impression: #1 Acute hypoxic respiratory failure , improving with diuresis. The patient continues to improve with diuresis. As such it's clear to me that the patient' s acute hypoxic history failure and shortness of breath was related to CHF, possible diastolic dysfunction special that she had elevated left ventricle end- diastolic pressure on previous catheterization and this was further exacerbated by episodes of atrial fibrillation. #2 Paroxysmal atrial fibrillation status post ablation , currently in normal sinus rhythm. #3 Morbid obesity. #4 Coronary artery disease with previous stent placement to the right PDA in 2013. #5 Diabetes mellitus, type II. #6 Hyperlipidemia. #7 Hypertension. #8 Osteoarthritis. #9 History of rectal bleed. #10 Chronic venous stasis of the lower extremities. #11 History of nephrolithiasis. Plan The patient will be discharged home on Aldactone and Lasix combination. Keep a negative fluid balance. Salt restriction. Shortness of breath is improved. Outpatient follow-up regarding possible obstructive sleep apnea. We'll continue to follow. Case discussed with cardiology.
== END 2017-01-11 14:56 | disposition home or self-care (01) | DRG 308 ==
LOC: 6SEL 08:01
PROVIDERS: ADMIT Internal Medicine Clinical Cardiac Electrophysiology; ATTEND Internal Medicine Clinical Cardiac Electrophysiology
DX: I48.1 Persistent atrial fibrillation (principal); J96.01 Acute respiratory failure with hypoxia; I50.33 Acute on chronic diastolic (congestive) heart failure; I27.2 Other secondary pulmonary hypertension; E83.42 Hypomagnesemia; E66.01 Morbid (severe) obesity due to excess calories; J98.11 Atelectasis; I11.0 Hypertensive heart disease with heart failure; E11.9 Type 2 diabetes mellitus without complications; I48.0 Paroxysmal atrial fibrillation; E78.5 Hyperlipidemia, unspecified; G47.33 Obstructive sleep apnea (adult) (pediatric); I25.10 Atherosclerotic heart disease of native coronary artery without angina pectoris; I87.8 Other specified disorders of veins; K52.9 Noninfective gastroenteritis and colitis, unspecified; M19.90 Unspecified osteoarthritis, unspecified site; Z79.4 Long term (current) use of insulin; Z79.82 Long term (current) use of aspirin; Z79.84 Long term (current) use of oral hypoglycemic drugs; Z79.899 Other long term (current) drug therapy; Z87.442 Personal history of urinary calculi; Z95.5 Presence of coronary angioplasty implant and graft
CPT/HCPCS: 36600; 71250; 80048; 82805; 83036; 83735; 93970; 94760

== ENCOUNTER 2017-10-22 08:29 | Day surgery (SDC) | payer MEDICARE, BC ==
[~2017-10-22 08:29] MED LIST changes: +CLINDAMYCIN 900 MG in DEXTROSE 5% IN WATER 50 ML IVPB ONE; -DEXAMETHASONE SOD PHOSPHATE 10 MG/ML 1 ML VIAL IV ONE; -HYDROmorphone 1 MG/ML 1 ML SYRINGE IVP PRN; -LACTATED RINGERS 1,000 ML IV SCH; -ONDANSETRON 4 MG/2 ML VIAL IVP ONE
[2017-10-22] MEDS ORDERED: INSULIN ASPART 100 UNIT/ML 1 ML 10 ML VIAL SQ ONE (13:05)
[2017-10-22 13:14] LABS: Basophils % (A) 0 %; Eosinophils # (A) 0.3 k/uL (0-0.7); Eosinophils % (A) 4 %; HCT 33.3 % (34.0-46.0); HGB 10.5 gm/dL (11.4-16.0); Hypochromasia Slight; Lymphocytes # (A) 1.7 k/uL (1.0-4.8); Lymphocytes % (A) 22 %; MCH 25.9 pg (25.0-35.0); MCHC 31.7 g/dL (31.0-37.0); MCV 81.6 fL (80.0-100.0); Mean Platelet Volume 7.8; Monocytes # (A) 0.6 k/uL (0-1.0); Monocytes % (A) 7 %; Neutrophils % (A) 65 %; Platelet Count 340 k/uL (150-450); RBC 4.08 m/uL (3.80-5.40); RDW 14.4 % (11.5-15.5); WBC 7.7 k/uL (3.8-10.6)
[2017-10-22 13:31] LABS: Glucose,Whole Blood 241 mg/dL (75-99)
[2017-10-22 13:45] LABS: Calcium 9.1 mg/dL (8.4-10.2); Potassium 4.9 mmol/L (3.5-5.1)
[2017-10-22] MEDS ORDERED: ACETAMINOPHEN TAB 325 MG TAB PO PRN (15:04)
[2017-10-22] MEDS ORDERED: diphenhydrAMINE 50 MG/ML 1 ML VIAL ONE (15:20)
[2017-10-22] MEDS ORDERED: PROPOFOL 10 MG/ML 20 ML VIAL IV ONE (15:20)
[2017-10-22] MEDS ORDERED: MIDAZOLAM 2 MG/2 ML VIAL ONE (15:20)
[2017-10-22] MEDS ORDERED: fentaNYL (PF) 50 MCG/ML 2 ML AMP ONE (15:20)
[2017-10-22] MEDS ORDERED: IOPAMIDOL-250 50ML BTL IV ONE ×2 (15:38→15:40)
[2017-10-22] MEDS ORDERED: IOPAMIDOL-370 50ML BTL INJ ONE (15:40)
[2017-10-22] MEDS ORDERED: LIDOCAINE 1% INJ 10MG/ML (20 ML MDV) ONE ×2 (15:46→16:04)
[2017-10-22] MEDS ORDERED: LIDOCAINE 1% INJ 10MG/ML (20 ML MDV) SQ ONE ×4 (15:50→16:09)
[2017-10-22] MEDS: CLINDAMYCIN 600 MG in SODIUM CHLORIDE 0.9% IRRIGATIO 250 ML IRRIGATION ONE ×2 (16:10→16:37)
--- NOTE | 2017-10-22 17:52 | CE ---
CARDIAC ELECTROPHYSIOLOGY REPORT Osiris Mendoza is a 67-year-old obese female who has atrial fibrillation with RVR that has not been controlled with 100 mg b.i.d. metoprolol and 30 mg q.i.d. diltiazem. She has had a history of atrial fibrillation ablation and was in sinus rhythm for about a year. LA pressures are high. She has a body mass index of 37.7. She is brought in for permanent pacemaker implantation and possible AV junction modification in the future if rates were not well controlled. Patient brought to the EP lab in a fasting state. Written informed consent was obtained prior to the procedure. The left shoulder area was prepped and draped as per protocol. 1% lidocaine was used for local anesthesia. A 4 cm incision was made parallel to the deltopectoral groove, about 1.5 cm medial to it. The incision was carried down to the level of the pectoralis muscle. A subfascial pocket was made. Hemostasis was assured. The pressures in the right heart were significantly elevated. A dual-chamber pacemaker was implanted. The right atrial lead was positioned in right atrial appendage. This was a [employer], model #1944, 46 cm in length and serial number [id number]. The RV lead was positioned in the RV apex. This lead was initially quite unstable on account of tricuspid regurgitation and elevated right-sided pressures, but finally a very stable right ventricular apical position was obtained. This was a tined lead, [address] [employer], model #1948, serial number [id number]. R-waves 10 mV, pacing threshold 0.5 V at 0.4 milliseconds, pacing impedance of 710 ohms. 10 V test was negative. Both leads were secured to the underlying pectoralis fascia using 2 nonabsorbable sutures. Pocket was irrigated with antibiotic solution. Leads were connected to the generator ([employer] MRI 2272 serial #[id number]. The leads and the generator were then placed in subfascial pocket and the wound was closed in 3 layers and dressed per protocol. RESULTS: Successful dual chamber pacemaker implantation in this lady with atrial fibrillation with RVR and elevated right-sided pressures. PLAN: 1. Switch to metoprolol succinate 150 mg twice daily. 2. Switch to verapamil SR 240 mg p.o. daily for rate control of atrial fibrillation. Continue Savaysa. If rates are not controlled with a combination of verapamil and metoprolol at maximum doses, then consider AV junction modification. MMODL / IJN: [id number] /
[2017-10-22] MEDS ORDERED: DILTIAZEM ORAL 30 MG TAB PO SCH (18:00)
[2017-10-22 18:31] LABS: Glucose,Whole Blood 152 mg/dL (75-99)
[2017-10-22] MEDS ORDERED: NON-FORMULARY DRUG (Metoprolol Tartrate [Lopressor] 100 MG) PO SCH (21:00)
[2017-10-22] MEDS ORDERED: ATORVASTATIN 40 MG TAB PO SCH (21:00)
[2017-10-22 21:02] LABS: Glucose,Whole Blood 371 mg/dL (75-99)
[2017-10-22 21:07] VITALS: BMI 37.6
[2017-10-22] MEDS: METOPROLOL TARTRATE 50 MG TAB PO SCH (21:10)
[2017-10-22] MEDS: VERAPAMIL SR 240 MG TABLET.ER PO SCH (21:11)
[2017-10-22] MEDS: metFORMIN 850 MG TAB PO SCH (21:11)
[2017-10-22] MEDS: INSULIN ASPART 100 UNIT/ML 1 ML 10 ML VIAL SQ SCH (22:44)
[2017-10-22] MEDS: CLINDAMYCIN 900 MG in DEXTROSE 5% IN WATER 50 ML IVPB SCH ×2 (23:44)
[2017-10-23] MEDS: CLINDAMYCIN 900 MG in DEXTROSE 5% IN WATER 50 ML IVPB SCH ×6 (05:39→16:41)
[2017-10-23 07:21] LABS: Glucose,Whole Blood 437 mg/dL (75-99)
[2017-10-23] MEDS: VERAPAMIL SR 240 MG TABLET.ER PO SCH (07:53)
[2017-10-23] MEDS: metFORMIN 850 MG TAB PO SCH ×3 (07:53→17:50)
[2017-10-23] MEDS: ASPIRIN 81 MG PO SCH ×2 (07:53→07:55)
[2017-10-23] MEDS: METOPROLOL TARTRATE 50 MG TAB PO SCH (07:55)
--- NOTE | 2017-10-23 08:08 | DS ---
DISCHARGE SUMMARY Mrs. Mendoza is a 67-year-old female with atrial fibrillation with RVR. She has undergone pulmonary vein isolation last year and maintained sinus rhythm for about a year or so, but has recurred. She underwent a permanent pacemaker implantation with view towards AV node modification in the future. She is doing well this morning. Her vitals are stable. She has minimal discomfort over the site. There is no hematoma. No soakage. Breath sounds are clear. Heart sounds S1, S2 are irregular, but normal. Resting heart rate now 110 beats per minute. Yesterday, her resting heart rate was about 140 to 150 beats per minute during the procedure. She is afebrile. Blood pressure 113/71 mmHg. I have changed her medications and I have started metoprolol succinate 150 mg twice daily as well as verapamil 240 mg p.o. daily. She will go home after completion of her IV antibiotics and chest x-ray and device interrogation. She will follow up in the device clinic in 5 days. All instructions were given and the medication changes were explained. She will continue anticoagulation lifelong. If the combination of metoprolol and verapamil at this dosage and strength is not result in the control of heart rate then AV node modification will be considered. MMODL / IJN: [id number] /
[2017-10-23] MEDS ORDERED: FUROSEMIDE 40 MG TAB PO SCH (09:00)
[2017-10-23] MEDS ORDERED: INSULIN DETEMIR 100 UNIT/ML 10 ML VIAL SQ SCH (09:00)
[2017-10-23] MEDS ORDERED: SPIRONOLACTONE 25 MG TAB PO SCH (09:00)
[2017-10-23] MEDS ORDERED: EDOXABAN TOSYLATE 60 MG TABLET PO SCH (09:00)
[2017-10-23] MEDS ORDERED: LIRAGLUTIDE 18 UNIT SQ SCH (09:00)
--- NOTE | 2017-10-23 09:22 | XR ---
EXAMINATION TYPE: XR chest 2V DATE OF EXAM: 10/23/2017 COMPARISON: Prior chest x-ray 12/26/2016 HISTORY: Status post pacemaker placement TECHNIQUE: Frontal and lateral views of the chest are obtained. FINDINGS: There is a generator in the left pectoral region, there are leads overlying the right vent ricle and region of the cavoatrial junction. No evident pneumothorax or pleural effusion. Prominent l silva lines suggest COPD. Heart is enlarged. Interstitium is increased. Old right-sided rib fracture ar e again noted. Central vascularity is prominent. Patient is rotated. IMPRESSION: Leads as described. Correlate for volume overload, pulmonary venous hypertension and int erstitial edema.
[2017-10-23 12:02] LABS: Glucose,Whole Blood 454 mg/dL (75-99)
[2017-10-23 12:09] VITALS: BP 118/75; PULSE 102; RESP 16; TEMP 98
[2017-10-23] MEDS: INSULIN ASPART 100 UNIT/ML 1 ML 10 ML VIAL SQ SCH ×2 (12:58→17:49)
[2017-10-23 17:27] LABS: Hemoglobin A1C 8.5 % (4.0-6.0)
[2017-10-23 17:41] LABS: Glucose,Whole Blood 371 mg/dL (75-99)
== END 2017-10-23 18:00 | disposition home or self-care (01) ==
LOC: CATHEP 08:29 → 3OBS 16:36 → CATHEP 10-23 18:00
PROVIDERS: ATTEND Internal Medicine Clinical Cardiac Electrophysiology
DX: I48.1 Persistent atrial fibrillation (principal); I42.9 Cardiomyopathy, unspecified; I25.10 Atherosclerotic heart disease of native coronary artery without angina pectoris; E78.2 Mixed hyperlipidemia; G47.33 Obstructive sleep apnea (adult) (pediatric); I10 Essential (primary) hypertension; E11.9 Type 2 diabetes mellitus without complications; M19.90 Unspecified osteoarthritis, unspecified site; Z95.5 Presence of coronary angioplasty implant and graft; Z79.01 Long term (current) use of anticoagulants; Z79.82 Long term (current) use of aspirin; Z79.4 Long term (current) use of insulin; Z79.899 Other long term (current) drug therapy; Z88.1 Allergy status to other antibiotic agents; Z88.0 Allergy status to penicillin; Z91.040 Latex allergy status; Z91.09 Other allergy status, other than to drugs and biological substances; Z91.013 Allergy to seafood; Z98.51 Tubal ligation status
CPT/HCPCS: 33208; 80048; 85025; 83036; 71046; C1769 ×5; C1894; C1892; C1898; C1785; J2250; J1200; J2001; J3010; J2704; Q9967

== ENCOUNTER 2017-10-30 11:52 | Inpatient (IN) | payer MEDICARE, BC ==
[2017-10-30] MEDS ORDERED: DILTIAZEM DRIP BOLUS FROM BAG 1 MG SOLN IV ONE (12:28)
--- NOTE | 2017-10-30 12:31 | ED ---
General Adult HPI - General Chief complaint: Arrhythmia/Palpitations Stated complaint: afib-sent by Time Seen by Provider: 10/30/17 12:08 Source: patient, RN notes reviewed Mode of arrival: wheelchair Limitations: no limitations - History of Present Illness Initial comments: Patient is a pleasant 67-year-old female presenting to the emergency Department with palpitations. Patient was discharged from the hospital one week ago. Patient has been having symptoms since that time and again today. Patient was advised to come back to the emergency department. Patient feels her heart skipping and racing. No chest pain. Patient has been fatigued, especially with exertion. - Related Data Home Medications Medication Instructions Recorded Confirmed Aspirin EC [Ecotrin Low Dose] 81 mg PO DAILY 02/27/14 10/30/17 Edoxaban Tosylate [Savaysa] 60 mg PO DAILY 07/20/16 10/30/17 Liraglutide [Victoza 2-Ishan] 1.8 units SQ DAILY 11/09/16 10/30/17 Atorvastatin [Lipitor] 40 mg PO HS 10/22/17 10/30/17 Insulin Glargine,Hum.rec.anlog 30 units SQ HS 10/22/17 10/30/17 [Toujeo Solostar] Furosemide [Lasix] 80 mg PO DAILY 10/30/17 10/30/17 Verapamil Sr [Isoptin Sr] 240 mg PO DAILY@1200 10/30/17 10/30/17 metFORMIN HCL [Glucophage] 850 mg PO TID 10/30/17 10/30/17 Previous Rx's Medication Instructions Recorded Metoprolol Succinate (ER) [Toprol 150 mg PO DAILY #90 tab 10/22/17 XL] Allergies Allergy/AdvReac Type Severity Reaction Status Date / Time Iodinated Contrast- Oral and Allergy Severe THROAT Verified 10/30/17 13:13 IV Dye SWELLING [Iodinated Contrast Media - Oral and] iodine Allergy Severe THROAT Verified 10/30/17 13:13 SWELLING, RASH shellfish derived Allergy Severe THROAT Verified 10/30/17 13:13 SWELLING, RASH cefazolin sodium Allergy Dyspnea Verified 10/30/17 13:13 [From Kefzol] Latex, Natural Rubber Allergy Rash/Hives Verified 10/30/17 13:13 levofloxacin [From Levaquin] Allergy Rash/Hives Verified 06/20/18 13:13 piperacillin sodium Allergy THROAT Verified 10/30/17 13:13 [From Zosyn] SWELL, RASH tazobactam sodium Allergy THROAT Verified 10/30/17 13:13 [From Zosyn] SWELL, RASH seafood Allergy Severe throat Uncoded 10/30/17 11:59 swelling Review of Systems ROS Statement: Those systems with pertinent positive or pertinent negative responses have been documented in the HPI. ROS Other: All systems not noted in ROS Statement are negative. Constitutional: Denies: fever Eyes: Denies: eye pain ENT: Denies: ear pain Respiratory: Denies: cough, dyspnea Cardiovascular: Reports: palpitations. Denies: chest pain Endocrine: Reports: fatigue Gastrointestinal: Denies: abdominal pain Genitourinary: Denies: dysuria Musculoskeletal: Denies: back pain Skin: Denies: rash Neurological: Denies: weakness Past Medical History Past Medical History: Atrial Fibrillation, Diabetes Mellitus, Hyperlipidemia, Osteoarthritis (OA), Pneumonia, Skin Disorder, Vascular Disorder Additional Past Medical History / Comment(s): SOB, diarrhea, see Dr Kern H&P , 2 sores left leg, frequent urination at night, hx kidney stones, History of Any Multi-Drug Resistant Organisms: None Reported Past Surgical History: Ablation, Cardiac Ablation, Heart Catheterization, Heart Catheterization With Stent, Hysterectomy, Pacemaker, Tubal Ligation Additional Past Surgical History / Comment(s): [place] with cardioversion, varicose vein stripping, one cardiac stent, rt cataract Past Anesthesia/Blood Transfusion Reactions: Motion Sickness, Postoperative Nausea & Vomiting (PONV) Additional Past Anesthesia/Blood Transfusion Reaction / Comment(s): PONV 40 PLUS YEARS AGO, AFTER REMOVAL KIDNEY STONE. Date of Last Stent Placement:: November 2013 Type of Cardiac Device: Permanent Pacemaker Device Placement Date:: 10/22/2017 Past Psychological History: No Psychological Hx Reported Smoking Status: Never smoker Past Alcohol Use History: None Reported Past Drug Use History: None Reported - Past Family History Father Family Medical History: No Reported History Additional Family Medical History / Comment(s): . Mother Family Medical History: Cancer Additional Family Medical History / Comment(s): bladder General Exam Limitations: no limitations General appearance: alert, in no apparent distress Head exam: Present: atraumatic Eye exam: Present: normal appearance, PERRL ENT exam: Present: normal oropharynx Neck exam: Present: normal inspection Respiratory exam: Present: normal lung sounds bilaterally Cardiovascular Exam: Present: tachycardia, irregular rhythm GI/Abdominal exam: Present: soft. Absent: tenderness Extremities exam: Present: normal inspection. 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 fib with RVR, rate 138. QRS 96. QT 324. QTC 490. Normal axis. Normal QRS. Nonspecific ST-T. Medical Decision Making - Medical Decision Making Patient reevaluated. Heart rate remains around 1:30. Cardizem drip adjusted. Case was discussed with Dr. Juarez, who will admit his patient. Cardiology will be consult. Patient is already on anticoagulation. - Lab Data Result diagrams: 10/30/17 12:09 10/30/17 12:09 Lab Results 10/30/17 10/30/17 10/30/17 Range/Units 12:09 12:09 12:09 WBC 8.6 (3.8-10.6) k/uL RBC 4.13 (3.80-5.40) m/uL Hgb 10.8 L (11.4-16.0) gm/dL Hct 33.7 L (34.0-46.0) % MCV 81.6 (80.0-100.0) fL MCH 26.3 (25.0-35.0) pg MCHC 32.2 (31.0-37.0) g/dL RDW 15.0 (11.5-15.5) % Plt Count 371 (150-450) k/uL Neutrophils % 67 % Lymphocytes % 20 % Monocytes % 8 % Eosinophils % 4 % Basophils % 0 % Neutrophils # 5.7 (1.3-7.7) k/uL Lymphocytes # 1.7 (1.0-4.8) k/uL Monocytes # 0.7 (0-1.0) k/uL Eosinophils # 0.3 (0-0.7) k/uL Basophils # 0.0 (0-0.2) k/uL Hypochromasia Slight PT (9.0-12.0) sec INR (<1.2) APTT (22.0-30.0) sec Sodium 142 (137-145) mmol/L Potassium 4.6 (3.5-5.1) mmol/L Chloride 101 (98-107) mmol/L Carbon Dioxide 23 (22-30) mmol/L Anion Gap 18 mmol/L BUN 31 H (7-17) mg/dL Creatinine 1.00 (0.52-1.04) mg/dL Est GFR (CKD-EPI)AfAm 69 (>60 ml/min/1.73 sqM) Est GFR (CKD-EPI)NonAf 60 (>60 ml/min/1.73 sqM) Glucose 160 H (74-99) mg/dL Calcium 9.4 (8.4-10.2) mg/dL Magnesium 1.3 L (1.6-2.3) mg/dL Total Bilirubin 0.4 (0.2-1.3) mg/dL AST 28 (14-36) U/L ALT 44 (9-52) U/L Alkaline Phosphatase 71 (38-126) U/L Total Creatine Kinase 35 (30-135) U/L CK-MB (CK-2) 0.7 (0.0-2.4) ng/mL CK-MB (CK-2) Rel Index 2.0 Troponin I <0.012 (0.000-0.034) ng/mL Total Protein 6.8 (6.3-8.2) g/dL Albumin 4.3 (3.5-5.0) g/dL TSH 3.120 (0.465-4.680) mIU/L Free T4 1.46 (0.78-2.19) ng/dL Free T3 pg/mL 3.0 (2.8-5.3) pg/ml 10/30/17 Range/Units 12:09 WBC (3.8-10.6) k/uL RBC (3.80-5.40) m/uL Hgb (11.4-16.0) gm/dL Hct (34.0-46.0) % MCV (80.0-100.0) fL MCH (25.0-35.0) pg MCHC (31.0-37.0) g/dL RDW (11.5-15.5) % Plt Count (150-450) k/uL Neutrophils % % Lymphocytes % % Monocytes % % Eosinophils % % Basophils % % Neutrophils # (1.3-7.7) k/uL Lymphocytes # (1.0-4.8) k/uL Monocytes # (0-1.0) k/uL Eosinophils # (0-0.7) k/uL Basophils # (0-0.2) k/uL Hypochromasia PT 14.9 H (9.0-12.0) sec INR 1.6 H (<1.2) APTT 26.0 (22.0-30.0) sec Sodium (137-145) mmol/L Potassium (3.5-5.1) mmol/L Chloride (98-107) mmol/L Carbon Dioxide (22-30) mmol/L Anion Gap mmol/L BUN (7-17) mg/dL Creatinine (0.52-1.04) mg/dL Est GFR (CKD-EPI)AfAm (>60 ml/min/1.73 sqM) Est GFR (CKD-EPI)NonAf (>60 ml/min/1.73 sqM) Glucose (74-99) mg/dL Calcium (8.4-10.2) mg/dL Magnesium (1.6-2.3) mg/dL Total Bilirubin (0.2-1.3) mg/dL AST (14-36) U/L ALT (9-52) U/L Alkaline Phosphatase (38-126) U/L Total Creatine Kinase (30-135) U/L CK-MB (CK-2) (0.0-2.4) ng/mL CK-MB (CK-2) Rel Index Troponin I (0.000-0.034) ng/mL Total Protein (6.3-8.2) g/dL Albumin (3.5-5.0) g/dL TSH (0.465-4.680) mIU/L Free T4 (0.78-2.19) ng/dL Free T3 pg/mL (2.8-5.3) pg/ml - Radiology Data Radiology results: image reviewed (Chest x-ray shows mild interstitial prominence that is improving. Cardiomegaly.) Critical Care Time Critical Care Time: Yes Total Critical Care Time: 32 Disposition Clinical Impression: Atrial fibrillation with RVR Disposition: ADMITTED IP TO THIS HOSP Referrals: Edgardo Juarez MD [Primary Care Provider] - 1-2 days Decision Time: 13:39
[2017-10-30 12:42] LABS: Basophils % (A) 0 %; Eosinophils # (A) 0.3 k/uL (0-0.7); Eosinophils % (A) 4 %; HCT 33.7 % (34.0-46.0); HGB 10.8 gm/dL (11.4-16.0); Hypochromasia Slight; Lymphocytes # (A) 1.7 k/uL (1.0-4.8); Lymphocytes % (A) 20 %; MCH 26.3 pg (25.0-35.0); MCHC 32.2 g/dL (31.0-37.0); MCV 81.6 fL (80.0-100.0); Mean Platelet Volume 7.1; Monocytes # (A) 0.7 k/uL (0-1.0); Monocytes % (A) 8 %; Neutrophils # (A) 5.7 k/uL (1.3-7.7); Neutrophils % (A) 67 %; Platelet Count 371 k/uL (150-450); RBC 4.13 m/uL (3.80-5.40); WBC 8.6 k/uL (3.8-10.6)
[2017-10-30 12:52] LABS: INR 1.6 (<1.2); Prothrombin Time 14.9 sec (9.0-12.0)
[2017-10-30 12:53] LABS: Albumin 4.3 g/dL (3.5-5.0); Calcium 9.4 mg/dL (8.4-10.2); Magnesium 1.3 mg/dL (1.6-2.3); Potassium 4.6 mmol/L (3.5-5.1); Total Bilirubin 0.4 mg/dL (0.2-1.3); Total Protein 6.8 g/dL (6.3-8.2)
--- NOTE | 2017-10-30 12:54 | XR ---
EXAMINATION TYPE: XR chest 1V portable DATE OF EXAM: 10/30/2017 COMPARISON: 10/23/2017 HISTORY: Dysrhythmia TECHNIQUE: Single frontal view of the chest is obtained. FINDINGS: Double lead pacemaker seen. Proximal lead is coiled upon itself in the region of the right atrium. Distal lead is not well-seen due to technique. Heart is enlarged. No pneumothorax. Arthropat hy of the shoulders. Interstitium is again remains mildly prominent centrally which could be seen wit h chronic congestion. Findings are improved. IMPRESSION: 1. Mild central interstitial prominence is improved correlate for improving venous congestion. 2. Cardiomegaly 3. Cardiac leads are similar to the prior exam in position.
[2017-10-30 13:03] LABS: Creatine Kinase 35 U/L (30-135)
[2017-10-30 13:09] LABS: T4, Free (Free Thyroxine) 1.46 ng/dL (0.78-2.19)
[2017-10-30 13:16] LABS: Creatine Kinase MB 0.7 ng/mL (0.0-2.4); Troponin I <0.012 ng/mL (0.000-0.034)
[2017-10-30] MEDS: DILTIAZEM 50 MG in SODIUM CHLORIDE 0.9% 40 ML IV SCH ×3 (13:24→23:21)
[2017-10-30] MEDS ORDERED: MAGNESIUM OXIDE 400 MG TAB PO STA (13:33)
[2017-10-30] MEDS ORDERED: MAGNESIUM SULFATE-D5W PMX 1 GM in DEXTROSE/WATER 1 100ML.BAG IVPB ONE (13:33)
[2017-10-30] MEDS ORDERED: NALOXONE 0.4 MG/ML 1 ML VIAL IV PRN (13:39)
[2017-10-30] MEDS ORDERED: SODIUM CHLORIDE 0.9% 1,000 ML IV SCH (14:00)
[2017-10-30] MEDS: SODIUM CHLORIDE 0.9% 1,000 ML IV SCH ×2 (14:37→19:02)
[2017-10-30 18:36] VITALS: BMI 30.9
[2017-10-30] MEDS ORDERED: LACTATED RINGERS 1,000 ML IV SCH ×2 (18:51)
[2017-10-30 20:59] LABS: Glucose,Whole Blood 169 mg/dL (75-99)
[2017-10-30] MEDS: INSULIN ASPART 100 UNIT/ML 1 ML 10 ML VIAL SQ SCH (21:25)
[2017-10-30] MEDS: ATORVASTATIN 40 MG TAB PO SCH (21:26)
[2017-10-31] MEDS: DILTIAZEM 50 MG in SODIUM CHLORIDE 0.9% 40 ML IV SCH ×2 (05:47→09:47)
[2017-10-31 06:14] LABS: Hemoglobin A1C 8.4 % (4.0-6.0)
[2017-10-31 06:33] LABS: Glucose,Whole Blood 147 mg/dL (75-99)
[2017-10-31] MEDS ORDERED: SODIUM CHLORIDE 0.9% 1,000 ML IV SCH (08:00)
[2017-10-31] MEDS ORDERED: CLINDAMYCIN 900 MG in DEXTROSE 5% IN WATER 50 ML IVPB STA ×2 (08:01)
[2017-10-31] MEDS: INSULIN ASPART 100 UNIT/ML 1 ML 10 ML VIAL SQ SCH ×4 (08:38→22:49)
--- NOTE | 2017-10-31 09:34 | CONS ---
CONSULTATION Osiris Mendoza is a 67-year-old female who has a history of atrial fibrillation with RVR. She underwent permanent pacemaker implantation recently and her AV marck blocking drugs were increased. The dose of beta blockers and verapamil were increased. However, she came to the office yesterday for a followup check and her heart rate was greater than 140 beats a minute. She was feeling tired, fatigued, somewhat dizzy and lethargic and her legs felt very rubbery. She was advised to come to the hospital for further management. PAST HISTORY: Past history of atrial fibrillation, diabetes, coronary artery disease, preserved LV systolic function, diastolic heart failure, elevated left atrial pressures. PAST SURGICAL HISTORY: A. Fib ablation last year and she remained in sinus rhythm for about a year until her recurrence once again. A single-chamber pacemaker was implanted. REVIEW OF SYSTEMS: No fever, chills, or rigors. No cough or expectoration. No nausea, vomiting, or diarrhea. No hematuria or dysuria. No strokes or seizures. She feels weak, tired, short of breath and her legs feel rubbery. No fever. Her pacemaker site has healed well. MEDICATIONS: Medications at home were reviewed and include metformin, verapamil, metoprolol, Victoza, insulin, Lasix, edoxaban, Lipitor and aspirin. PHYSICAL EXAMINATION: On examination, her blood pressure is stable. Blood pressure is 113/93 mmHg. Respiratory rate is 16 to 18. Pulse rate at rest is 108 beats per minute. She is afebrile, 97.3 degrees Fahrenheit. Head and neck examination is normal. Heart sounds are normal. Lungs are clear to auscultation. Extremities are warm. Her heart rhythm is irregular and tachycardic. No murmurs or gallops. changes noted in the lower extremities. IMPRESSION: 1. Symptomatic atrial fibrillation with rapid ventricular response, refractory to AV marck blocking drugs with very poor rate control and tachycardia with minimal exertion and very symptomatic. 2. Adult onset diabetes. 3. Coronary artery disease. 4. Preserved left ventricular systolic function, diastolic heart failure, chronic with elevated left atrial pressures. 5. Obesity, body mass index 37. SUGGEST: I would recommend AV junction modification for rate control of atrial fibrillation. This was discussed with the patient. She is agreeable with the plan. MMODL / IJN: [id number] /
[2017-10-31] MEDS ORDERED: IV FLUID CONTINUATION 600 ML IV ONE (10:54)
[2017-10-31] MEDS ORDERED: ATROPINE SULFATE 0.1 MG/ML 10ML SYRINGE ONE (10:55)
[2017-10-31] MEDS ORDERED: MIDAZOLAM 2 MG/2 ML VIAL ONE (10:55)
[2017-10-31] MEDS ORDERED: fentaNYL (PF) 50 MCG/ML 2 ML AMP ONE (10:55)
[2017-10-31] MEDS ORDERED: PROPOFOL 10 MG/ML 20 ML VIAL IV ONE (10:55)
[2017-10-31] MEDS: LIDOCAINE 2% SYG (PF) 100 MG/5 ML MISCELLANE ONE ×2 (11:33→11:39)
--- NOTE | 2017-10-31 12:25 | P.PCN ---
Preoperative Diagnosis: Procedure AV node modification Pacemaker interrogation with reprogramming Indication for the procedure Symptomatic atrial fibrillation RVR despite high dose beta blockers and calcium channel blockers Failure of medical therapy Procedure details Venous access was obtained left femoral vein. Long sheath was placed. 4 mm tip ablation catheter was placed AV node/His bundle area was mapped RF ablation was applied and junctional rhythm was obtained Narrow QRS rhythm 44 beats a minute, regular IV atropine given No recurrence of atrial fibrillation with an irregular ventricular response Permanent pacemaker was interrogated. During the procedure it again programmed to VVI 40 beats a minute. Following successful AV node modification is programmed to VVI at 90 beats a minute for the next 2 weeks Thereafter we will reduce the pacemaker rate to VVIR 60 PPM Anesthesia: MAC
--- NOTE | 2017-10-31 12:33 | P.PN ---
Progress Note - Text Patient underwent successful AV junction modification and reprogramming of permanent pacemaker to 90 beats a minute for 2 weeks. She may go home after 24 hours and follow-up in the device clinic in 2 weeks for reprogramming back to VVIR 60 PPM
[2017-10-31] MEDS ORDERED: HYDROcodone/APAP 5-325MG 1 EACH TAB PO PRN (13:44)
--- NOTE | 2017-10-31 14:38 | CDI ---
Last Revision, April 2017 Documentation Clarification Form Date: 10/31/2017 2:36:00 PM From: Shelia NaranjoMezaEDDIE, CCDS Admit Date: 10/30/2017 1:40:00 PM Patient Name: Osiris Mendoza Visit Number: [id number] Discharge Date: ATTENTION: The Clinical Documentation Specialists (CDI) and [facility] Coding Staff appreciate your assistance in clarifying documentation. Please respond to the clarification below the line at the bottom and electronically sign. The CDI & [facility] Coding staff will review the response and follow-up if needed. Please note: Queries are made part of the Legal Health Record. If you have any questions, please contact the author of this message via ITS. Dr. Claude Kern: Atrial fibrillation is documented in the cardiology consult & procedure note without specificity. History/Risk Factors: Atrial Fibrillation with RVR, CAD, Chronic diastolic heart failure, Hyperlipidemia & adult onset diabetes mellitus. Permanent pacemaker. Clinical Indicators: Patient was found to have high heart rate in cardiology office: >140, sent to hospital for ablation. EKG/telemetry: R 138 A Fib w/RVR. Treatment: RF Ablation & interrogation & re-programming of permanent pacemaker. In your professional opinion, can you please clarify the type of atrial fibrillation, if known? Chronic/Permanent Paroxysmal Persistent Other, please specify Unable to determine Please continue to document in your progress notes and discharge summary in order to capture severity of illness and risk of mortality. Include clinical findings that support your diagnosis. see dictated MTDD
[2017-10-31] MEDS ORDERED: ACETAMINOPHEN IV (For NPO) 1,000 MG in EMPTY BAG 1 BAG IVPB ONE (15:00)
--- NOTE | 2017-10-31 15:52 | P.HPIM ---
History of Present Illness 67 year odl female admitted from physicians office with symtomatic Afib with RVR rate to 180.Intractable with medication past ablation and pacemaker.Patient is here AV node ablatatio. Plan is to regaulate pacemaaker to rate 90. Patient is post pocedure and feeling much improved. Review of Systems Constitutional: Reports fatigue, Reports weakness Cardiovascular: Reports dyspnea on exertion, Reports irregular heart beat, Reports lightheadedness Integumentary: Reports foot/leg ulcers Past Medical History Past Medical History: Atrial Fibrillation, Diabetes Mellitus, Hyperlipidemia, Osteoarthritis (OA), Pneumonia, Skin Disorder, Vascular Disorder Additional Past Medical History / Comment(s): open sore on left leg History of Any Multi-Drug Resistant Organisms: None Reported Past Surgical History: Ablation, Cardiac Ablation, Heart Catheterization, Heart Catheterization With Stent, Hysterectomy, Pacemaker, Tubal Ligation Additional Past Surgical History / Comment(s): [place] with cardioversion, varicose vein stripping, one cardiac stent, rt cataract Past Anesthesia/Blood Transfusion Reactions: Motion Sickness, Postoperative Nausea & Vomiting (PONV) Additional Past Anesthesia/Blood Transfusion Reaction / Comment(s): PONV 40 PLUS YEARS AGO, AFTER REMOVAL KIDNEY STONE. Date of Last Stent Placement:: November 2013 Type of Cardiac Device: Permanent Pacemaker Device Placement Date:: 10/22/2017 Past Psychological History: No Psychological Hx Reported Additional Psychological History / Comment(s): . Smoking Status: Never smoker Past Alcohol Use History: None Reported Additional Past Alcohol Use History / Comment(s): . Past Drug Use History: None Reported - Past Family History Father Family Medical History: No Reported History Additional Family Medical History / Comment(s): . Mother Family Medical History: Cancer Additional Family Medical History / Comment(s): bladder Medications and Allergies Home Medications Medication Instructions Recorded Confirmed Type Aspirin EC [Ecotrin Low Dose] 81 mg PO DAILY 02/27/14 10/30/17 History Edoxaban Tosylate [Savaysa] 60 mg PO DAILY 07/20/16 10/30/17 History Liraglutide [Victoza 2-Ishan] 1.8 units SQ DAILY 11/09/16 10/30/17 History Atorvastatin [Lipitor] 40 mg PO HS 10/22/17 10/30/17 History Insulin Glargine,Hum.rec.anlog 30 units SQ HS 10/22/17 10/30/17 History [Dorothy Astorga] Furosemide [Lasix] 80 mg PO DAILY 10/30/17 10/30/17 History metFORMIN HCL [Glucophage] 850 mg PO TID 10/30/17 10/30/17 History Metoprolol Succinate [Toprol Xl] 50 mg PO DAILY #90 tab.er.24h 10/31/17 Rx Allergies Allergy/AdvReac Type Severity Reaction Status Date / Time Iodinated Contrast- Oral and Allergy Severe THROAT Verified 10/30/17 13:13 IV Dye SWELLING [Iodinated Contrast Media - Oral and] iodine Allergy Severe THROAT Verified 10/30/17 13:13 SWELLING, RASH shellfish derived Allergy Severe THROAT Verified 10/30/17 13:13 SWELLING, RASH cefazolin sodium Allergy Dyspnea Verified 10/30/17 13:13 [From Kefzol] Latex, Natural Rubber Allergy Rash/Hives Verified 10/30/17 13:13 levofloxacin [From Levaquin] Allergy Rash/Hives Verified 10/30/17 13:13 piperacillin sodium Allergy THROAT Verified 10/30/17 13:13 [From Zosyn] SWELL, RASH tazobactam sodium Allergy THROAT Verified 10/30/17 13:13 [From Zosyn] SWELL, RASH seafood Allergy Severe throat Uncoded 10/30/17 11:59 swelling Physical Exam Vitals: Vital Signs Temp Pulse Pulse Resp BP BP Pulse Ox 10/31/17 13:44 20 168/76 97 10/31/17 12:00 18 10/31/17 08:00 108 H 18 10/31/17 07:57 97.3 F L 108 H 20 113/93 95 10/31/17 04:00 97.8 F 80 18 105/67 98 10/31/17 00:00 96.9 F L 121 H 17 105/59 94 L 10/30/17 20:00 96.9 F L 128 H 18 100/58 94 L 10/30/17 16:58 98.1 F 113 H 18 110/64 99 Intake and Output 10/31/17 10/31/17 10/31/17 06:59 14:59 22:59 Intake Total 93.167 396 Balance 93.167 396 Intake: IV 356 Intake, IV Titration 93.167 40 Amount Diltiazem 50 mg In Sodium 93.167 40 Chloride 0.9% 40 ml @ 10 MG/HR 10 mls/hr IV .Q5H [facility] Rx#:[id number] Other: Voiding Method Toilet Bedpan # Voids 1 2 Weight 110.8 kg - Constitutional General appearance: obese - EENT Eyes: PERRLA Ears: bilateral: normal - Respiratory Respiratory: bilateral: CTA - Cardiovascular 100% paced rate 90 Rhythm: regular - Gastrointestinal General gastrointestinal: soft - Musculoskeletal Musculoskeletal: generalized weakness - Psychiatric Psychiatric: A&O x's 3, appropriate affect, intact judgment & insight Results CBC & Chem 7: 10/30/17 12:09 10/30/17 12:09 Labs: Abnormal Lab Results - Last 24 Hours (Table) 10/30/17 10/30/17 10/31/17 Range/Units 12:09 20:46 06:18 POC Glucose (mg/dL) 169 H (75-99) mg/dL Hemoglobin A1c 8.4 H (4.0-6.0) % Magnesium 1.5 L (1.6-2.3) mg/dL 10/31/17 Range/Units 06:27 POC Glucose (mg/dL) 147 H (75-99) mg/dL Hemoglobin A1c (4.0-6.0) % Magnesium (1.6-2.3) mg/dL Assessment and Plan Plan: Asssessment Atrial fibrilation with RVR rate to 180 symptomatic chronic permanent post AV node ablation hx diabetes II pacmaker hyperlipidemia vascular disease CAD with hx of cardiac cath Osteoarthritis hymagnesium Plan continued consultation with cardiology
[2017-10-31 16:33] LABS: Glucose,Whole Blood 229 mg/dL (75-99)
[2017-10-31] MEDS ORDERED: ACETAMINOPHEN TAB 325 MG TAB PO PRN (21:00)
[2017-10-31 22:00] LABS: Glucose,Whole Blood 193 mg/dL (75-99)
[2017-10-31] MEDS ORDERED: INSULIN DETEMIR 100 UNIT/ML 10 ML VIAL SQ SCH (22:30)
[2017-10-31] MEDS: EDOXABAN TOSYLATE 60 MG TABLET PO SCH (22:41)
[2017-10-31] MEDS: metFORMIN 850 MG TAB PO SCH (22:41)
[2017-10-31] MEDS: ATORVASTATIN 40 MG TAB PO SCH (22:45)
[2017-10-31] MEDS ORDERED: Magnesium Replacement Protocol 1 EACH MISC MISCELLANE PRN (22:58)
[2017-11-01] MEDS: MAGNESIUM SULFATE-D5W PMX 1 GM in DEXTROSE/WATER 1 100ML.BAG IVPB SCH ×2 (04:14→06:23)
[2017-11-01 06:10] LABS: Glucose,Whole Blood 128 mg/dL (75-99)
--- NOTE | 2017-11-01 06:59 | P.PN ---
Subjective Principal diagnosis: Impression Permanent atrial fibrillation with RVR, drug refractory and symptomatic Status post permanent pacemaker implantation Status post AV junction modification with a residual ventricular rate of 45-50 beats a minute, junctional rhythm CAD Diastolic congestive heart failure, chronic Adult-onset diabetes Obesity Plan Continue pacing and 90 beats a minute for 2 weeks and then reprogrammed. Patient may go home today if hemodynamically stable Stop verapamil and reduced the dose of metoprolol succinate to 50 mrem daily Continue anticoagulation lifelong Continue diuretics Objective - Vital Signs Vital signs: Vital Signs Temp 97.5 F L 11/01/17 04:00 Pulse 90 11/01/17 04:00 Resp 18 11/01/17 04:00 BP 150/67 11/01/17 04:00 Pulse Ox 97 11/01/17 04:00 Intake & Output 10/31/17 10/31/17 11/01/17 06:59 18:59 06:59 Intake Total 116.667 756 Balance 116.667 756 Weight 110.8 kg 112 kg Intake: IV 356 Intake, IV Titration 116.667 40 Amount Diltiazem 50 mg In Sodium 116.667 40 Chloride 0.9% 40 ml @ 10 MG/HR 10 mls/hr IV .Q5H [facility] Rx#:[id number] Oral 360 Other: Voiding Method Toilet Bedpan Bedpan # Voids 1 2 2 - Labs CBC & Chem 7: 10/30/17 12:09 10/30/17 12:09 Labs: Abnormal Lab Results - Last 24 Hours (Table) 10/30/17 10/31/17 10/31/17 Range/Units 12:09 16:16 21:57 POC Glucose (mg/dL) 229 H 193 H (75-99) mg/dL Hemoglobin A1c 8.4 H (4.0-6.0) % 11/01/17 Range/Units 06:08 POC Glucose (mg/dL) 128 H (75-99) mg/dL Hemoglobin A1c (4.0-6.0) %
[2017-11-01] MEDS: INSULIN ASPART 100 UNIT/ML 1 ML 10 ML VIAL SQ SCH ×2 (07:01→11:57)
[2017-11-01] MEDS: metFORMIN 850 MG TAB PO SCH (08:33)
[2017-11-01] MEDS: EDOXABAN TOSYLATE 60 MG TABLET PO SCH (08:33)
[2017-11-01] MEDS ORDERED: METOPROLOL SUCCINATE (ER) 50 MG TAB.ER.24H PO SCH (09:00)
[2017-11-01] MEDS ORDERED: FUROSEMIDE 80 MG TAB PO SCH (09:00)
[2017-11-01] MEDS ORDERED: ASPIRIN 81 MG PO SCH (09:00)
[2017-11-01] MEDS ORDERED: LIRAGLUTIDE 1.8 UNIT SQ SCH (09:00)
--- NOTE | 2017-11-01 09:41 | PN ---
PROGRESS NOTE Patient is doing well. She feels a lot better today. She walked up to the bathroom in the room and feels distinctly different. She is afebrile, 97.5 degrees Fahrenheit, pulse rate is 90 beats per minute. Her pacemaker has been programmed to VVI 90 beats per minute post AV junction modification. Blood pressure is 150/67 mmHg. Respirations are normal. Breath sounds are clear. No rhonchi, no crackles. Heart sounds are . changes noted in the lower extremities. IMPRESSION: 1. Permanent atrial fibrillation, status post AV junction modification. 2. Known coronary artery disease. 3. Known diastolic chronic heart failure with preserved left ventricular systolic function. 4. Adult onset diabetes. SUGGEST: Discharge home on 50 mg of Toprol XL along with other medications including Savaysa, metformin, insulin, Lasix, and aspirin. High dose metoprolol has been discontinued. The dose was reduced and verapamil has been stopped. Follow up in the device clinic in 2 weeks and follow up with Dr. Ralph as scheduled. She may go home from a cardiac standpoint. MMODL / IJN: [id number] /
[2017-11-01 11:30] VITALS: RESP 19
--- NOTE | 2017-11-01 11:40 | P.DS ---
Providers Date of admission: 10/30/17 13:40 Attending physician: Edgardo Juarez Consults: 10/30/17 13:40 Consult Physician Urgent Consulting Provider: Claude Kern Consult Reason/Comments: ablation Do you want consulting provider notified?: Yes Primary care physician: Edgardo Juarez Hospital Course: This is my first day to take care of this patient as the on-call hospitalist covering for Dr. Juarez This is a pleasant 67 years old female with past medical history of permanent atrial fibrillation status post pacemaker placement about a week ago as per patient, diabetes mellitus, hyperlipidemia, pneumonia, osteoarthritis.she was admitted from physicians office with symtomatic Afib with RVR rate to 180.her a A. fib was Intractable to medication, and past ablation and pacemaker.patient was symptomatic upon admission. Patient underwent AV node ablation procedure on 10/31/2017, as well as pacemaker interrogation on the same day, hold down by and under supervision of cardiology team. Plan is to regaulate pacemaaker to rate 90 as per note. Patient is post pocedure and feeling much improved. Wardrobe Mistress habit cleared patient for discharge today. Appointment was made with labor employment associate, PCP and flight readiness technician. Patient was informed about the appointment time ends and she agreed to do the follow-up. Metoprolol dose was decreased to 50 mg daily and Verapamil has DC'd by the cardiology team. Continue rest of home medication, please refer to discharge instruction and medication list. Upon discharge patient dyspnea and palpitation are completely resolved. Patient was found walking in the hallway with no problems. Patient denies chest pain and dyspnea, change in urine or bowel habits, or fever on discharge. Patient was cleared by cardiology for discharge Problem and management plan were discussed with the patient and at bed side upon patient request and they verbalized understanding and acceptance. Also there were informed about the appointments and both agreed with the appointments and the timing Patient was found stable and can be discharged home however she needs follow-up as an outpatient and she verbalized understanding and acceptance Prescription for Toprol as provided for the patient. Patient didn't need any pain medication. Patient and informed me she has rest of her home medication and doesn't need a prescription for the GENERAL: The patient is alert and oriented x3, not in any acute distress. Well developed, well nourished. HEENT: Pupils are round and equally reacting to light. EOMI. No scleral icterus. No conjunctival pallor. Normocephalic, atraumatic. No pharyngeal erythema. No thyromegaly. CARDIOVASCULAR: S1 and S2 present. No murmurs, rubs, or gallops. Left upper chest wound with pacemaker felt underneath the skin PULMONARY: Chest is clear to auscultation, no wheezing or crackles. ABDOMEN: Soft, nontender, nondistended, normoactive bowel sounds. No palpable organomegaly. MUSCULOSKELETAL: No joint swelling or deformity. EXTREMITIES: No cyanosis, clubbing, or pedal edema. NEUROLOGICAL: Gross neurological examination did not reveal any focal deficits. SKIN: No rashes. Time spent more than 35 minutes Plan - Discharge Summary Discharge Rx Participant: No New Discharge Prescriptions: New Metoprolol Succinate [Toprol Xl] 50 mg PO DAILY #90 tab.er.24h Continue Aspirin EC [Ecotrin Low Dose] 81 mg PO DAILY Edoxaban Tosylate [Savaysa] 60 mg PO DAILY Liraglutide [Victoza 2-Ishan] 1.8 units SQ DAILY Insulin Glargine,Hum.rec.anlog [Toujeo Solostar] 30 units SQ HS Atorvastatin [Lipitor] 40 mg PO HS metFORMIN HCL [Glucophage] 850 mg PO TID Furosemide [Lasix] 80 mg PO DAILY Discontinued Metoprolol Succinate (ER) [Toprol XL] 150 mg PO DAILY #90 tab Verapamil Sr [Isoptin Sr] 240 mg PO DAILY@1200 Discharge Medication List Aspirin EC [Ecotrin Low Dose] 81 mg PO DAILY 02/27/14 [History] Edoxaban Tosylate [Savaysa] 60 mg PO DAILY 07/20/16 [History] Liraglutide [Victoza 2-Ishan] 1.8 units SQ DAILY 11/09/16 [History] Atorvastatin [Lipitor] 40 mg PO HS 10/22/17 [History] Insulin Glargine,Hum.rec.anlog [Toujeo Solostar] 30 units SQ HS 10/22/17 [ History] Furosemide [Lasix] 80 mg PO DAILY 10/30/17 [History] metFORMIN HCL [Glucophage] 850 mg PO TID 10/30/17 [History] Metoprolol Succinate [Toprol Xl] 50 mg PO DAILY #90 tab.er.24h 10/31/17 [Rx] Acetaminophen Tab [Tylenol] 650 mg PO Q6HR PRN tab 11/01/17 [Rx] Follow up Appointment(s)/Referral(s): [facility] [Provider Group] - 11/11/17 3:00 pm ([facility]) Edgardo Juarez MD [Primary Care Provider] - 11/05/17 9:00 am (Saturday) Otis Ralph MD [STAFF PHYSICIAN] - 12/25/17 10:30 am (Saturday. Previously scheduled appointment Stop verapamil Reduce metoprolol succinate to 50 mrem once daily) Ambulatory/Diagnostic Orders: Complete Blood Count w/diff [LAB.AMB] Time Frame: 3 Days, Location: Determined By Patient Patient Instructions/Handouts: Cardiac Ablation (DC) Activity/Diet/Wound Care/Special Instructions: Post EP study - Ablation instructions 1. Keep access sites dry for 2 days. 2. No heavy lifting or straining for 2 days. 3. Avoid bending the hips repeatedly for 2 days. 4. You may go up and down stairs slowly Call if the following is noted 1. Bleeding, increasing swelling or pain at the access sites. 2. Increasing chest discomfort, especially upon taking a deep breath. 3. Increasing shortness of breath, at rest or with exertion. 4. Undue cough / phlegm 5. Difficulty or pain while swallowing. 6. Pain or change in color in the extremities. 7. Fever, chills, rigors. 8. Increasing headache or neurologic symptoms. 9. Dizziness, fainting, palpitations Diet: Consistent carb Accu-Cheks before meals and at bedtime Discharge Disposition: HOME SELF-CARE
[2017-11-01 11:55] LABS: Glucose,Whole Blood 122 mg/dL (75-99)
[2017-11-01 14:40] VITALS: BP 133/65; PULSE 90; TEMP 98
== END 2017-11-01 15:05 | disposition home or self-care (01) | DRG 274 ==
LOC: EC 11:52 → 6SEL 13:40
PROVIDERS: ADMIT Family Medicine; ATTEND Family Medicine
PROC: 02583ZZ Destruction of Conduction Mechanism, Percutaneous Approach (ICD-10-PCS; principal; 2017-10-31 11:00)
PROC: 4A023FZ Measurement of Cardiac Rhythm, Percutaneous Approach (ICD-10-PCS; principal; 2017-10-31 11:00)
DX: I48.2 Chronic atrial fibrillation (principal); I50.32 Chronic diastolic (congestive) heart failure; E11.9 Type 2 diabetes mellitus without complications; E66.9 Obesity, unspecified; E78.5 Hyperlipidemia, unspecified; I25.10 Atherosclerotic heart disease of native coronary artery without angina pectoris; M19.90 Unspecified osteoarthritis, unspecified site; Z68.37 Body mass index [BMI] 37.0-37.9, adult; Z87.442 Personal history of urinary calculi; Z90.710 Acquired absence of both cervix and uterus; Z95.0 Presence of cardiac pacemaker; Z95.5 Presence of coronary angioplasty implant and graft; E83.42 Hypomagnesemia; Z79.84 Long term (current) use of oral hypoglycemic drugs; Z79.82 Long term (current) use of aspirin; Z79.899 Other long term (current) drug therapy; Z88.8 Allergy status to other drugs, medicaments and biological substances; Z88.1 Allergy status to other antibiotic agents; Z91.041 Radiographic dye allergy status; Z91.040 Latex allergy status; Z91.013 Allergy to seafood
CPT/HCPCS: 36415; 71045; 80053; 82550; 82553; 83036; 83735; 84439; 84443; 84481; 84484; 85025; 85610; 85730; 93005; 93609; 93650; 96365; 96366; 96368; 96376; 99291

== ENCOUNTER 2017-12-13 12:24 | Observation (INO) | payer MEDICARE, BC ==
--- NOTE | 2017-12-13 13:00 | ED ---
General Adult HPI - General Chief complaint: Shortness of Breath Stated complaint: SOB Time Seen by Provider: 12/13/17 12:52 Source: patient, RN notes reviewed, old records reviewed Mode of arrival: wheelchair Limitations: no limitations - History of Present Illness Initial comments: 67-year-old female history of atrial fibrillation, CAD status post stenting, and hypertension presenting with worsening dyspnea over the past 1-2 weeks. Patient was seen by her primary care physician this morning, she was sent for x- ray and laboratory studies. X-ray did reveal some pulmonary vascular congestion. Patient has no known history of congestive heart failure. She does take 80 mg of Lasix daily. She complains of orthopnea and has been sleeping with 4 pillows. She complains of chronic lower extremity swelling which is not worsened from baseline. Denies chest pain. Denies fever. Denies cough. Denies abdominal pain nausea vomiting. Patient has no previous tobacco history. - Related Data Home Medications Medication Instructions Recorded Confirmed Aspirin EC [Ecotrin Low Dose] 81 mg PO DAILY 02/27/14 12/13/17 Edoxaban Tosylate [Savaysa] 60 mg PO DAILY 07/20/16 12/13/17 Liraglutide [Victoza 2-Ishan] 1.8 units SQ DAILY 11/09/16 12/13/17 Atorvastatin [Lipitor] 40 mg PO HS 10/22/17 12/13/17 Insulin Glargine,Hum.rec.anlog 30 units SQ HS 10/22/17 12/13/17 [Toujeo Solostar] Furosemide [Lasix] 80 mg PO DAILY 10/30/17 12/13/17 metFORMIN HCL [Glucophage] 850 mg PO TID 10/30/17 12/13/17 Previous Rx's Medication Instructions Recorded Metoprolol Succinate [Toprol Xl] 50 mg PO DAILY #90 tab.er.24h 10/31/17 Acetaminophen Tab [Tylenol] 650 mg PO Q6HR PRN tab 11/01/17 Allergies Allergy/AdvReac Type Severity Reaction Status Date / Time Iodinated Contrast- Oral and Allergy Severe THROAT Verified 12/13/17 13:19 IV Dye SWELLING [Iodinated Contrast Media - Oral and] iodine Allergy Severe THROAT Verified 12/13/17 13:19 SWELLING, RASH shellfish derived Allergy Severe THROAT Verified 12/13/17 13:19 SWELLING, RASH cefazolin sodium Allergy Dyspnea Verified 12/13/17 13:19 [From Kefzol] Latex, Natural Rubber Allergy Rash/Hives Verified 12/13/17 13:19 levofloxacin [From Levaquin] Allergy Rash/Hives Verified 12/13/17 13:19 piperacillin sodium Allergy THROAT Verified 12/13/17 13:19 [From Zosyn] SWELL, RASH tazobactam sodium Allergy THROAT Verified 12/13/17 13:19 [From Zosyn] SWELL, RASH verapamil AdvReac Severe Hallucinati Verified 12/13/17 13:19 ons seafood Allergy Severe throat Uncoded 12/13/17 12:50 swelling Review of Systems ROS Statement: Those systems with pertinent positive or pertinent negative responses have been documented in the HPI. ROS Other: All systems not noted in ROS Statement are negative. Past Medical History Past Medical History: Atrial Fibrillation, Diabetes Mellitus, Hyperlipidemia, Osteoarthritis (OA), Pneumonia, Skin Disorder, Vascular Disorder Additional Past Medical History / Comment(s): open sore on left leg History of Any Multi-Drug Resistant Organisms: None Reported Past Surgical History: Ablation, Cardiac Ablation, Heart Catheterization, Heart Catheterization With Stent, Hysterectomy, Pacemaker, Tubal Ligation Additional Past Surgical History / Comment(s): [place] with cardioversion, varicose vein stripping, one cardiac stent, rt cataract Past Anesthesia/Blood Transfusion Reactions: Motion Sickness, Postoperative Nausea & Vomiting (PONV) Additional Past Anesthesia/Blood Transfusion Reaction / Comment(s): PONV 40 PLUS YEARS AGO, AFTER REMOVAL KIDNEY STONE. Date of Last Stent Placement:: November 2013 Type of Cardiac Device: Permanent Pacemaker Device Placement Date:: 10/22/2017 Past Psychological History: No Psychological Hx Reported Smoking Status: Never smoker Past Alcohol Use History: None Reported Past Drug Use History: None Reported - Past Family History Father Family Medical History: No Reported History Additional Family Medical History / Comment(s): . Mother Family Medical History: Cancer Additional Family Medical History / Comment(s): bladder General Exam Limitations: no limitations General appearance: alert, in no apparent distress Head exam: Present: atraumatic, normocephalic Eye exam: Present: normal appearance, PERRL, EOMI ENT exam: Present: normal exam Neck exam: Present: normal inspection. Absent: tenderness, meningismus Respiratory exam: Present: rales. Absent: respiratory distress, wheezes Cardiovascular Exam: Present: regular rate, normal rhythm GI/Abdominal exam: Present: soft. Absent: distended, tenderness, guarding Rectal exam: Present: deferred Extremities exam: Present: other (Bilateral venous stasis). Absent: pedal edema Back exam: Present: normal inspection, full ROM, tenderness Neurological exam: Present: alert, oriented X3, CN II-XII intact. Absent: motor sensory deficit Psychiatric exam: Present: normal affect, normal mood Skin exam: Present: warm, dry, intact. Absent: cyanosis, diaphoretic Course Vital Signs 12/13/17 12/13/17 12/13/17 12:46 14:00 14:20 Temperature 98.8 F Pulse Rate 60 60 90 Respiratory 18 20 26 H Rate Blood Pressure 152/77 167/71 177/77 O2 Sat by Pulse 98 98 98 Oximetry 12/13/17 15:26 Temperature Pulse Rate 60 Respiratory 20 Rate Blood Pressure 167/70 O2 Sat by Pulse 100 Oximetry EKG Findings - EKG Comments: EKG Findings:: EKG: Paced rhythm rate of 60, QRS duration 176, QTC [address] segment elevation or depression Medical Decision Making - Medical Decision Making 67-year-old female presenting with dyspnea. Outpatient chest x-ray today shows central pulmonary vascular congestion. Hemoglobin is 9.6, this is down from most recent hemoglobin however. Worse stable for this patient. Creatinine 1.2. Magnesium 1.4. Troponin is negative. BNP is elevated at 5000. Patient is given IV diuresis in the emergency department. Case discussed with both patient's primary care physician and her offc spec. On reevaluation she remains quite dyspneic. She is able to ambulate without significant desaturation however respiratory rate increases patient is only able to speak in one-word sentences. She will be kept in the hospital for continued IV diuresis and cardiology consultation. - Lab Data Result diagrams: 12/13/17 13:20 12/13/17 13:20 Lab Results 12/13/17 12/13/17 12/13/17 Range/Units 13:20 13:20 13:20 WBC 7.9 (3.8-10.6) k/uL RBC 3.79 L (3.80-5.40) m/uL Hgb 9.6 L (11.4-16.0) gm/dL Hct 30.4 L (34.0-46.0) % MCV 80.2 (80.0-100.0) fL MCH 25.3 (25.0-35.0) pg MCHC 31.5 (31.0-37.0) g/dL RDW 15.1 (11.5-15.5) % Plt Count 292 (150-450) k/uL Neutrophils % 64 % Lymphocytes % 22 % Monocytes % 7 % Eosinophils % 4 % Basophils % 1 % Neutrophils # 5.0 (1.3-7.7) k/uL Lymphocytes # 1.7 (1.0-4.8) k/uL Monocytes # 0.5 (0-1.0) k/uL Eosinophils # 0.4 (0-0.7) k/uL Basophils # 0.0 (0-0.2) k/uL Hypochromasia Marked PT (9.0-12.0) sec INR (<1.2) APTT (22.0-30.0) sec Sodium 143 (137-145) mmol/L Potassium 4.8 (3.5-5.1) mmol/L Chloride 108 H (98-107) mmol/L Carbon Dioxide 20 L (22-30) mmol/L Anion Gap 15 mmol/L BUN 36 H (7-17) mg/dL Creatinine 1.20 H (0.52-1.04) mg/dL Est GFR (CKD-EPI)AfAm 55 (>60 ml/min/1.73 sqM) Est GFR (CKD-EPI)NonAf 48 (>60 ml/min/1.73 sqM) Glucose 129 H (74-99) mg/dL Calcium 8.9 (8.4-10.2) mg/dL Magnesium 1.4 L (1.6-2.3) mg/dL Total Bilirubin 0.3 (0.2-1.3) mg/dL AST 42 H (14-36) U/L ALT 43 (9-52) U/L Alkaline Phosphatase 56 (38-126) U/L Total Creatine Kinase 63 (30-135) U/L CK-MB (CK-2) 1.2 (0.0-2.4) ng/mL CK-MB (CK-2) Rel Index 1.9 Troponin I <0.012 (0.000-0.034) ng/mL NT-Pro-B Natriuret Pep pg/mL Total Protein 6.3 (6.3-8.2) g/dL Albumin 4.1 (3.5-5.0) g/dL 12/13/17 12/13/17 Range/Units 13:20 13:20 WBC (3.8-10.6) k/uL RBC (3.80-5.40) m/uL Hgb (11.4-16.0) gm/dL Hct (34.0-46.0) % MCV (80.0-100.0) fL MCH (25.0-35.0) pg MCHC (31.0-37.0) g/dL RDW (11.5-15.5) % Plt Count (150-450) k/uL Neutrophils % % Lymphocytes % % Monocytes % % Eosinophils % % Basophils % % Neutrophils # (1.3-7.7) k/uL Lymphocytes # (1.0-4.8) k/uL Monocytes # (0-1.0) k/uL Eosinophils # (0-0.7) k/uL Basophils # (0-0.2) k/uL Hypochromasia PT 13.4 H (9.0-12.0) sec INR 1.4 H (<1.2) APTT 25.0 (22.0-30.0) sec Sodium (137-145) mmol/L Potassium (3.5-5.1) mmol/L Chloride (98-107) mmol/L Carbon Dioxide (22-30) mmol/L Anion Gap mmol/L BUN (7-17) mg/dL Creatinine (0.52-1.04) mg/dL Est GFR (CKD-EPI)AfAm (>60 ml/min/1.73 sqM) Est GFR (CKD-EPI)NonAf (>60 ml/min/1.73 sqM) Glucose (74-99) mg/dL Calcium (8.4-10.2) mg/dL Magnesium (1.6-2.3) mg/dL Total Bilirubin (0.2-1.3) mg/dL AST (14-36) U/L ALT (9-52) U/L Alkaline Phosphatase (38-126) U/L Total Creatine Kinase (30-135) U/L CK-MB (CK-2) (0.0-2.4) ng/mL CK-MB (CK-2) Rel Index Troponin I (0.000-0.034) ng/mL NT-Pro-B Natriuret Pep 4890 pg/mL Total Protein (6.3-8.2) g/dL Albumin (3.5-5.0) g/dL Disposition Clinical Impression: Renal insufficiency, mild, Congestive heart failure Disposition: ADMITTED IP TO THIS [facility] Condition: Stable Is patient prescribed a controlled substance at d/c from ED?: No Referrals: Edgardo Juarez MD [Primary Care Provider] - 1-2 days Decision to Admit Reason: Admit from EC Decision Date: 12/13/17 Decision Time: 15:20
[2017-12-13 13:35] LABS: Basophils % (A) 1 %; Eosinophils # (A) 0.4 k/uL (0-0.7); Eosinophils % (A) 4 %; HCT 30.4 % (34.0-46.0); HGB 9.6 gm/dL (11.4-16.0); Hypochromasia Marked; Lymphocytes # (A) 1.7 k/uL (1.0-4.8); Lymphocytes % (A) 22 %; MCH 25.3 pg (25.0-35.0); MCHC 31.5 g/dL (31.0-37.0); MCV 80.2 fL (80.0-100.0); Mean Platelet Volume 6.8; Monocytes # (A) 0.5 k/uL (0-1.0); Monocytes % (A) 7 %; Neutrophils % (A) 64 %; Platelet Count 292 k/uL (150-450); RBC 3.79 m/uL (3.80-5.40); RDW 15.1 % (11.5-15.5); WBC 7.9 k/uL (3.8-10.6)
[2017-12-13 13:48] LABS: INR 1.4 (<1.2); Prothrombin Time 13.4 sec (9.0-12.0)
[2017-12-13 13:52] LABS: Albumin 4.1 g/dL (3.5-5.0); Calcium 8.9 mg/dL (8.4-10.2); Magnesium 1.4 mg/dL (1.6-2.3); Potassium 4.8 mmol/L (3.5-5.1); Total Bilirubin 0.3 mg/dL (0.2-1.3); Total Protein 6.3 g/dL (6.3-8.2)
[2017-12-13 13:56] LABS: Creatine Kinase 63 U/L (30-135)
[2017-12-13 14:10] LABS: Creatine Kinase MB 1.2 ng/mL (0.0-2.4); Troponin I <0.012 ng/mL (0.000-0.034)
[2017-12-13] MEDS ORDERED: FUROSEMIDE 10 MG/ML 4 ML VIAL IV STA (14:35)
[2017-12-13 15:27] VITALS: PULSE 60
[2017-12-13] MEDS ORDERED: NALOXONE 0.4 MG/ML 1 ML VIAL IV PRN (16:11)
[2017-12-13 17:08] LABS: Glucose,Whole Blood 112 mg/dL (75-99)
[2017-12-13] MEDS: ATORVASTATIN 40 MG TAB PO SCH (20:38)
[2017-12-13] MEDS: FUROSEMIDE 10 MG/ML 4 ML VIAL IV SCH (20:38)
[2017-12-13 21:40] LABS: Glucose,Whole Blood 219 mg/dL (75-99)
[2017-12-13] MEDS: INSULIN DETEMIR 100 UNIT/ML 10 ML VIAL SQ SCH (21:49)
[2017-12-14 06:14] LABS: Glucose,Whole Blood 107 mg/dL (75-99)
[2017-12-14] MEDS ORDERED: ASPIRIN 81 MG PO SCH (09:00)
[2017-12-14] MEDS: FUROSEMIDE 10 MG/ML 4 ML VIAL IV SCH ×2 (09:14→20:54)
[2017-12-14] MEDS: METOPROLOL SUCCINATE (ER) 50 MG TAB.ER.24H PO SCH (09:14)
[2017-12-14] MEDS: EDOXABAN TOSYLATE 60 MG TABLET PO SCH (09:14)
--- NOTE | 2017-12-14 09:28 | P.CRDCN ---
History of Present Illness Consult date: 12/14/17 Requesting physician: Edgardo Juarez Consult reason: congestive heart failure Chief complaint: Shortness of breath History of present illness: This is a pleasant 67-year-old female who follows regularly with Dr. Ralph in the office. She has a known history of coronary artery disease with prior stent placement, diabetes, hypertension, hyperlipidemia, paroxysmal atrial fibrillation, prior pacemaker implantation which was just performed in October of this year. She presents to the hospital with symptoms of progressively worsening shortness of breath. Patient states that she noticed exertionally to be more short of breath than usual. She also states that she was putting on weight and on occasion waking up at night short of breath. She spoke to Dr. Juarez about this, an outpatient chest x-ray was ordered yesterday which revealed mild venous congestion, and patient was recommended to come to the emergency room for further evaluation. EKG on arrival here showed atrial fibrillation with a controlled ventricular response. Blood pressure on arrival here 152/70 with a heart rate in the 60s, temperature 98.8, 98% on room air. Blood pressure this morning 162/70 with a heart rate in the 60s, 97% on room air. White blood cell count 7.9, hemoglobin 9.6, platelet count 292. Sodium 143, potassium 4.8, BUN 36, creatinine 1.2. Magnesium 1.4, troponin 0.012. BNP level 4890. At the time of my examination this morning, patient is sitting up at bedside, denies any overt shortness of breath. She was initiated on IV Lasix in the emergency room, her weight is down 2 kg today. Past Medical History Past Medical History: Atrial Fibrillation, Heart Failure, Diabetes Mellitus, Hyperlipidemia, Osteoarthritis (OA), Pneumonia, Skin Disorder, Vascular Disorder Additional Past Medical History / Comment(s): open sore on left leg History of Any Multi-Drug Resistant Organisms: None Reported Past Surgical History: Ablation, Cardiac Ablation, Heart Catheterization, Heart Catheterization With Stent, Hysterectomy, Pacemaker, Tubal Ligation Additional Past Surgical History / Comment(s): [place] with cardioversion, varicose vein stripping, one cardiac stent, rt cataract Past Anesthesia/Blood Transfusion Reactions: Motion Sickness, Postoperative Nausea & Vomiting (PONV) Additional Past Anesthesia/Blood Transfusion Reaction / Comment(s): PONV 40 PLUS YEARS AGO, AFTER REMOVAL KIDNEY STONE. Date of Last Stent Placement:: November 2013 Type of Cardiac Device: Permanent Pacemaker Device Placement Date:: 10/22/2017 Past Psychological History: No Psychological Hx Reported Additional Psychological History / Comment(s): . Smoking Status: Never smoker Past Alcohol Use History: None Reported Additional Past Alcohol Use History / Comment(s): . Past Drug Use History: None Reported - Past Family History Father Family Medical History: No Reported History Additional Family Medical History / Comment(s): . Mother Family Medical History: Cancer Additional Family Medical History / Comment(s): bladder Medications and Allergies Home Medications Medication Instructions Recorded Confirmed Type Aspirin EC [Ecotrin Low Dose] 81 mg PO DAILY 02/27/14 12/13/17 History Edoxaban Tosylate [Savaysa] 60 mg PO DAILY 07/20/16 12/13/17 History Liraglutide [Victoza 2-Ishan] 1.8 units SQ DAILY 11/09/16 12/13/17 History Atorvastatin [Lipitor] 40 mg PO HS 10/22/17 12/13/17 History Insulin Glargine,Hum.rec.anlog 30 units SQ HS 10/22/17 12/13/17 History [Toujeo Solostar] Furosemide [Lasix] 80 mg PO DAILY 10/30/17 12/13/17 History metFORMIN HCL [Glucophage] 850 mg PO TID 10/30/17 12/13/17 History Metoprolol Succinate [Toprol Xl] 50 mg PO DAILY #90 tab.er.24h 10/31/17 Rx Acetaminophen Tab [Tylenol] 650 mg PO Q6HR PRN tab 11/01/17 12/13/17 Rx Allergies Allergy/AdvReac Type Severity Reaction Status Date / Time Iodinated Contrast- Oral and Allergy Severe THROAT Verified 12/13/17 13:19 IV Dye SWELLING [Iodinated Contrast Media - Oral and] iodine Allergy Severe THROAT Verified 12/13/17 13:19 SWELLING, RASH shellfish derived Allergy Severe THROAT Verified 12/13/17 13:19 SWELLING, RASH cefazolin sodium Allergy Dyspnea Verified 12/13/17 13:19 [From Kefzol] Latex, Natural Rubber Allergy Rash/Hives Verified 12/13/17 13:19 levofloxacin [From Levaquin] Allergy Rash/Hives Verified 12/13/17 13:19 piperacillin sodium Allergy THROAT Verified 12/13/17 13:19 [From Zosyn] SWELL, RASH tazobactam sodium Allergy THROAT Verified 12/13/17 13:19 [From Zosyn] SWELL, RASH verapamil AdvReac Severe Hallucinati Verified 12/13/17 13:19 ons seafood Allergy Severe throat Uncoded 12/13/17 12:50 swelling Physical Exam Vitals: Vital Signs Temp Pulse Pulse Resp BP BP BP 12/14/17 08:00 96.9 F L 60 18 162/73 12/14/17 04:00 98 F 60 17 135/71 12/14/17 00:00 98.4 F 60 17 121/56 12/13/17 20:00 98.9 F 60 17 148/58 12/13/17 18:28 97.2 F L 60 18 164/72 12/13/17 17:29 97.1 F L 60 15 156/70 12/13/17 16:15 60 24 164/112 12/13/17 15:26 60 20 167/70 12/13/17 14:20 90 26 H 177/77 12/13/17 14:00 60 20 167/71 12/13/17 12:46 98.8 F 60 18 152/77 Pulse Ox 12/14/17 08:00 97 12/14/17 04:00 98 12/14/17 00:00 97 12/13/17 20:00 96 12/13/17 18:28 98 12/13/17 17:29 98 12/13/17 16:15 99 12/13/17 15:26 100 12/13/17 14:20 98 12/13/17 14:00 98 12/13/17 12:46 98 Intake and Output 12/13/17 12/14/17 12/14/17 22:59 06:59 14:59 Intake Total 250 240 Output Total 2300 900 Balance -2049 240 Intake: Oral 250 240 Output: Urine 2300 900 Other: Voiding Method Toilet # Voids 2 Weight 114.577 kg 112.5 kg PHYSICAL EXAMINATION: GENERAL: 67-year-old female in no acute distress at time of my examination HEENT: Head is atraumatic, normocephalic. Pupils equal, round. Sclera anicteric. Conjunctiva are clear. Mucous membranes of the mouth are moist. Neck is supple. There is no elevated jugular venous pressure. No carotid bruit is heard. HEART EXAMINATION: Heart S1 and S2 irregularly irregular, systolic murmur is heard. CHEST EXAMINATION: Lungs are clear with diminished air entry to the bases . No chest wall tenderness is noted on palpation or with deep breathing. ABDOMEN: Soft, nontender. Bowel sounds are heard. No organomegaly noted. EXTREMITIES: 2+ peripheral pulses with trace evidence of peripheral edema and no calf tenderness noted. Dressing in place to the left lower extremity campos area, open ulcerated area. NEUROLOGIC patient is awake, alert and oriented X3. . Results 12/13/17 13:20 12/13/17 13:20 Cardiac Enzymes 12/13/17 12/13/17 Range/Units 13:20 13:20 AST 42 H (14-36) U/L CK-MB (CK-2) 1.2 (0.0-2.4) ng/mL Troponin I <0.012 (0.000-0.034) ng/mL Coagulation 12/13/17 Range/Units 13:20 PT 13.4 H (9.0-12.0) sec APTT 25.0 (22.0-30.0) sec CBC 12/13/17 Range/Units 13:20 WBC 7.9 (3.8-10.6) k/uL RBC 3.79 L (3.80-5.40) m/uL Hgb 9.6 L (11.4-16.0) gm/dL Hct 30.4 L (34.0-46.0) % Plt Count 292 (150-450) k/uL Comprehensive Metabolic Panel 12/13/17 Range/Units 13:20 Sodium 143 (137-145) mmol/L Potassium 4.8 (3.5-5.1) mmol/L Chloride 108 H (98-107) mmol/L Carbon Dioxide 20 L (22-30) mmol/L BUN 36 H (7-17) mg/dL Creatinine 1.20 H (0.52-1.04) mg/dL Glucose 129 H (74-99) mg/dL Calcium 8.9 (8.4-10.2) mg/dL AST 42 H (14-36) U/L ALT 43 (9-52) U/L Alkaline Phosphatase 56 (38-126) U/L Total Protein 6.3 (6.3-8.2) g/dL Albumin 4.1 (3.5-5.0) g/dL Current Medications Generic Name Dose Route Start Last Admin Trade Name Teagan PRN Reason Stop Dose Admin Aspirin 81 mg 12/14/17 09:00 12/14/17 09:14 Aspirin PO 81 mg DAILY LAKEISHA Administration Atorvastatin Calcium 40 mg 12/13/17 21:00 12/13/17 20:38 Lipitor PO 40 mg HS LAKEISHA Administration Edoxaban 60 mg 12/14/17 09:00 12/14/17 09:14 Savaysa PO 60 mg DAILY LAKEISHA Administration Furosemide 40 mg 12/13/17 21:00 12/14/17 09:14 Lasix IV 40 mg Q12HR LAKEISHA Administration Magnesium Sulfate/Dextrose 1 100 mls @ 100 mls/hr 12/14/17 09:15 gm/ IV Solution IVPB 12/14/17 11:14 Q1H LAKEISHA Insulin Detemir 30 unit 12/13/17 21:00 12/13/17 21:49 Levemir SQ 30 unit HS LAKEISHA Administration Metoprolol Succinate 50 mg 12/14/17 09:00 12/14/17 09:14 Toprol Xl PO 50 mg DAILY LAKEISHA Administration Naloxone HCl 0.2 mg 12/13/17 16:11 Narcan IV Q2M PRN Opioid Reversal Intake and Output 12/13/17 12/14/17 12/14/17 22:59 06:59 14:59 Intake Total 250 240 Output Total 2300 900 Balance -2050 -900 240 Intake: Oral 250 240 Output: Urine 2300 900 Other: Voiding Method Toilet # Voids 2 Weight 114.577 kg 112.5 kg 12/13/17 13:20 12/13/17 13:20 EKG Interpretations (text) EKG shows atrial fibrillation with a controlled ventricular response Assessment and Plan Plan: Assessment and plan #1 congestive heart failure, diastolic, acute on chronic. Most recent echo was performed in November 2015 which revealed a normal ejection fraction. Patient did have a [place] performed in July 2016 which revealed a normal ejection fraction, mild to moderate TR and mild MR. #2 hypertension #3 diabetes #4 hyperlipidemia #5 chronic persistent atrial fibrillation, on Savaysa for anticoagulation #6 prior pacemaker implantation in October of this year #7 pulmonary vein isolation for atrial fibrillation in December of this year Plan We will obtain an echocardiogram with Doppler study. We'll continue patient on IV Lasix, continue to monitor intake and output along with daily weights and daily lytes BUN and creatinine. Continue baby aspirin daily, Lipitor 40 mg daily, Savaysa, metoprolol 50 mg daily. Further recommendations to follow. DNP note has been reviewed, I agree with a documented findings and plan of care. Patient was seen and examined.
[2017-12-14] MEDS: MAGNESIUM SULFATE-D5W PMX 1 GM in DEXTROSE/WATER 1 100ML.BAG IVPB SCH ×2 (10:17→11:39)
[2017-12-14] MEDS ORDERED: HEPARIN SODIUM,PORCINE 5,000 UNIT/ML 1 ML VIAL SQ SCH (11:00)
--- NOTE | 2017-12-14 11:07 | P.HPIM ---
History of Present Illness this is a pleasant 67 years old female with past medical history of chronic atrial fibrillation, CHF, diabetes mellitus, hyperlipidemia, osteoarthritis, pneumonia, open sores of the left leg, status post cardiac cath with stenting and pacemaker. the emergency room patient was afebrile, heart rate was controlled at 60. Blood pressure is controlled. CBC showing anemia. Creatinine slightly elevated at 1.2. EKG shows ventricular rate at 60 bpm, with wide QRS, QTC at 538.proBNP 4819 Patient medication were reviewed including: Aspirin, Lipitor, savaysa, Lasix 40 mg IV twice a day, Levemir 13 units daily at bedtime, magnesium sulfate, metoprolol 50 mg daily and Narcan diabetes home medications on hold including: metformin 850 mg 3 times a day and Victoza 1.8 units subcutaneous daily. She was on Lantus toujeo at 30 units daily at bedtime. Review of Systems CONSTITUTIONAL: No fever, no malaise, no fatigue. HEENT: No recent visual problems or hearing problems. Denied any sore throat. CARDIOVASCULAR: No orthopnea, PND, no palpitations, no syncope. PULMONARY: No shortness of breath, no cough, no hemoptysis. GASTROINTESTINAL: No diarrhea, no nausea, no vomiting, no abdominal pain. Normoactive bowel sounds. NEUROLOGICAL: No headaches, no weakness, no numbness. HEMATOLOGICAL: Denies any bleeding or petechiae. GENITOURINARY: Denies any burning micturition, frequency, or urgency. MUSCULOSKELETAL/RHEUMATOLOGICAL: Denies any joint pain, swelling, or any muscle pain. ENDOCRINE: Denies any polyuria or polydipsia. Past Medical History Past Medical History: Atrial Fibrillation, Heart Failure, Diabetes Mellitus, Hyperlipidemia, Osteoarthritis (OA), Pneumonia, Skin Disorder, Vascular Disorder Additional Past Medical History / Comment(s): open sore on left leg History of Any Multi-Drug Resistant Organisms: None Reported Past Surgical History: Ablation, Cardiac Ablation, Heart Catheterization, Heart Catheterization With Stent, Hysterectomy, Pacemaker, Tubal Ligation Additional Past Surgical History / Comment(s): [place] with cardioversion, varicose vein stripping, one cardiac stent, rt cataract Past Anesthesia/Blood Transfusion Reactions: Motion Sickness, Postoperative Nausea & Vomiting (PONV) Additional Past Anesthesia/Blood Transfusion Reaction / Comment(s): PONV 40 PLUS YEARS AGO, AFTER REMOVAL KIDNEY STONE. Date of Last Stent Placement:: November 2013 Type of Cardiac Device: Permanent Pacemaker Device Placement Date:: 10/22/2017 Past Psychological History: No Psychological Hx Reported Additional Psychological History / Comment(s): . Smoking Status: Never smoker Past Alcohol Use History: None Reported Additional Past Alcohol Use History / Comment(s): . Past Drug Use History: None Reported - Past Family History Father Family Medical History: No Reported History Additional Family Medical History / Comment(s): . Mother Family Medical History: Cancer Additional Family Medical History / Comment(s): bladder Medications and Allergies Home Medications Medication Instructions Recorded Confirmed Type Aspirin EC [Ecotrin Low Dose] 81 mg PO DAILY 02/27/14 12/13/17 History Edoxaban Tosylate [Savaysa] 60 mg PO DAILY 07/20/16 12/13/17 History Liraglutide [Victoza 2-Ishan] 1.8 units SQ DAILY 11/09/16 12/13/17 History Atorvastatin [Lipitor] 40 mg PO HS 10/22/17 12/13/17 History Insulin Glargine,Hum.rec.anlog 30 units SQ HS 10/22/17 12/13/17 History [Toujeo Solostar] Furosemide [Lasix] 80 mg PO DAILY 10/30/17 12/13/17 History metFORMIN HCL [Glucophage] 850 mg PO TID 10/30/17 12/13/17 History Metoprolol Succinate [Toprol Xl] 50 mg PO DAILY #90 tab.er.24h 10/31/17 Rx Acetaminophen Tab [Tylenol] 650 mg PO Q6HR PRN tab 11/01/17 12/13/17 Rx Allergies Allergy/AdvReac Type Severity Reaction Status Date / Time Iodinated Contrast- Oral and Allergy Severe THROAT Verified 12/13/17 13:19 IV Dye SWELLING [Iodinated Contrast Media - Oral and] iodine Allergy Severe THROAT Verified 12/13/17 13:19 SWELLING, RASH shellfish derived Allergy Severe THROAT Verified 12/13/17 13:19 SWELLING, RASH cefazolin sodium Allergy Dyspnea Verified 12/13/17 13:19 [From Kefzol] Latex, Natural Rubber Allergy Rash/Hives Verified 12/13/17 13:19 levofloxacin [From Levaquin] Allergy Rash/Hives Verified 12/13/17 13:19 piperacillin sodium Allergy THROAT Verified 12/13/17 13:19 [From Zosyn] SWELL, RASH tazobactam sodium Allergy THROAT Verified 12/13/17 13:19 [From Zosyn] SWELL, RASH verapamil AdvReac Severe Hallucinati Verified 12/13/17 13:19 ons seafood Allergy Severe throat Uncoded 12/13/17 12:50 swelling Physical Exam Vitals: Vital Signs Temp Pulse Pulse Resp BP BP BP 12/14/17 08:00 96.9 F L 60 18 162/73 12/14/17 04:00 98 F 60 17 135/71 12/14/17 00:00 98.4 F 60 17 121/56 12/13/17 20:00 98.9 F 60 17 148/58 12/13/17 18:28 97.2 F L 60 18 164/72 12/13/17 17:29 97.1 F L 60 15 156/70 12/13/17 16:15 60 24 164/112 12/13/17 15:26 60 20 167/70 12/13/17 14:20 90 26 H 177/77 12/13/17 14:00 60 20 167/71 12/13/17 12:46 98.8 F 60 18 152/77 Pulse Ox 12/14/17 08:00 97 12/14/17 04:00 98 12/14/17 00:00 97 12/13/17 20:00 96 12/13/17 18:28 98 12/13/17 17:29 98 12/13/17 16:15 99 12/13/17 15:26 100 12/13/17 14:20 98 12/13/17 14:00 98 12/13/17 12:46 98 Intake and Output 12/13/17 12/14/17 12/14/17 22:59 06:59 14:59 Intake Total 250 240 Output Total 2300 900 Balance -2049 240 Intake: Oral 250 240 Output: Urine 2300 900 Other: Voiding Method Toilet # Voids 2 Weight 114.577 kg 112.5 kg GENERAL: The patient is alert and oriented x3, not in any acute distress. Well developed, well nourished. HEENT: Pupils are round and equally reacting to light. EOMI. No scleral icterus. No conjunctival pallor. Normocephalic, atraumatic. No pharyngeal erythema. No thyromegaly. CARDIOVASCULAR: S1 and S2 present. No murmurs, rubs, or gallops. PULMONARY: Chest is clear to auscultation, no wheezing or crackles. ABDOMEN: Soft, nontender, nondistended, normoactive bowel sounds. No palpable organomegaly. MUSCULOSKELETAL: No joint swelling or deformity. EXTREMITIES: No cyanosis, clubbing, or pedal edema. NEUROLOGICAL: Gross neurological examination did not reveal any focal deficits. SKIN: No rashes. Results CBC & Chem 7: 12/13/17 13:20 12/13/17 13:20 Labs: Abnormal Lab Results - Last 24 Hours (Table) 12/13/17 12/13/17 12/13/17 Range/Units 13:20 13:20 13:20 RBC 3.79 L (3.80-5.40) m/uL Hgb 9.6 L (11.4-16.0) gm/dL Hct 30.4 L (34.0-46.0) % PT 13.4 H (9.0-12.0) sec INR 1.4 H (<1.2) Chloride 108 H (98-107) mmol/L Carbon Dioxide 20 L (22-30) mmol/L BUN 36 H (7-17) mg/dL Creatinine 1.20 H (0.52-1.04) mg/dL Glucose 129 H (74-99) mg/dL POC Glucose (mg/dL) (75-99) mg/dL Magnesium 1.4 L (1.6-2.3) mg/dL AST 42 H (14-36) U/L 12/13/17 12/13/17 12/14/17 Range/Units 17:05 21:38 06:10 RBC (3.80-5.40) m/uL Hgb (11.4-16.0) gm/dL Hct (34.0-46.0) % PT (9.0-12.0) sec INR (<1.2) Chloride (98-107) mmol/L Carbon Dioxide (22-30) mmol/L BUN (7-17) mg/dL Creatinine (0.52-1.04) mg/dL Glucose (74-99) mg/dL POC Glucose (mg/dL) 112 H 219 H 107 H (75-99) mg/dL Magnesium (1.6-2.3) mg/dL AST (14-36) U/L Thrombosis Risk Factor Assmnt - Choose All That Apply Any of the Below Risk Factors Present?: Yes Each Factor Represents 1 point: Obesity (BMI >25), Swollen legs (current) Other Risk Factors: Yes Each Risk Factor Represents 2 Points: Age 61-74 years Other congenital or acquired thrombophilia - If yes, enter type in comment: No Thrombosis Risk Factor Assessment Total Risk Factor Score: 4 Thrombosis Risk Factor Assessment Level: Moderate Risk Assessment and Plan Assessment: acute on chronic diastolic CHF, acute dyspnea, mostly secondary to above hypertension Diabetes and Hyperlipidemia Chronic atrial fibrillation, on savaysa and status post pacemaker Possible pulmonary hypertension Chronic wound of the left leg, with no signs of infection or cellulitis Plan: this is a pleasant 67 years old female presents with dyspnea, mostly related to her acute heart failure. Continue with same treatment. Continue symptomatic treatment. Change her Lasix from 80 mg by mouth daily to 40 mg IV twice a day as per cardiology recommendation.cardiology input is appreciated. Call pulmonary consult. GI and DVT prophylaxis. Resume home medication. Further recommendation based on the clinical course of the patient DVT prophylaxis on savaysa GI prophylaxis on Pepcid PT/OT: Pending Prognosis is guarded patient was instructed to follow up with her PCP in one week after discharge for her medical problems including her chronic left leg wound degrees
[2017-12-14 11:57] VITALS: BMI 37.7
[2017-12-14 12:17] LABS: Glucose,Whole Blood 181 mg/dL (75-99)
--- NOTE | 2017-12-14 13:09 | P.CNPUL ---
History of Present Illness Consult date: 12/14/17 Reason for consult: dyspnea History of present illness: 67-year-old female patient known history of coronary artery disease, chronic atrial fibrillation with previous ablations and subsequent insertion of a pacemaker along with history of diabetes hypertension hyperlipidemia. The patient presented to hospital because of progressive exertional dyspnea and orthopnea and some leg edema. Chest x-ray showed cardiac megaly and the chest x -ray also showed mild pulmonary vessel congestion. ProBNP level was 4800. Troponin was were negative. EKG was showing a wide-complex rhythm, possibly nasal LBB pattern in addition to atrial fibrillation. The patient has no pleurisy. No hemoptysis. She is currently receiving IV Lasix and she is feeling better and she is less short of breath and she has lost approximately 2 kg since her admission. Review of Systems Constitutional: Reports fatigue Eyes: denies blurred vision, denies bulging eye, denies decreased vision Ears: deny: decreased hearing, ear discharge, earache, tinnitus Ears, nose, mouth and throat: Denies headache, Denies sore throat Cardiovascular: Reports dyspnea on exertion, Reports orthopnea, Reports phlebitis, Reports shortness of breath Respiratory: Reports dyspnea Gastrointestinal: Denies abdominal pain, Denies diarrhea, Denies nausea, Denies vomiting Genitourinary: Denies dysuria, Denies hematuria Menstruation: Reports as per HPI Musculoskeletal: Reports as per HPI Musculoskeletal: bilateral: ankle swelling, absent: ankle pain, ankle stiffness Integumentary: Denies pruritus, Denies rash Neurological: Denies numbness, Denies weakness Psychiatric: Denies anxiety, Denies depression Endocrine: Denies fatigue, Denies weight change Past Medical History Past Medical History: Atrial Fibrillation, Heart Failure, Diabetes Mellitus, Hyperlipidemia, Osteoarthritis (OA), Pneumonia, Skin Disorder, Vascular Disorder Additional Past Medical History / Comment(s): Chronic atrial fibrillation, diabetes mellitus, hypertension, hyperlipidemia, chronic venous stasis involving the lower extremities with chronic ulceration of the left lower extremity, coronary artery disease with previous coronary stenting involving the right PDA back in 2013, previous cardiac ablation related to atrial fibrillation, osteoarthritis, history of kidney stones, history of pacemaker insertion. History of Any Multi-Drug Resistant Organisms: None Reported Past Surgical History: Ablation, Cardiac Ablation, Heart Catheterization, Heart Catheterization With Stent, Hysterectomy, Pacemaker, Tubal Ligation Additional Past Surgical History / Comment(s): [place] with cardioversion, varicose vein stripping, one cardiac stent, rt cataract Past Anesthesia/Blood Transfusion Reactions: Motion Sickness, Postoperative Nausea & Vomiting (PONV) Additional Past Anesthesia/Blood Transfusion Reaction / Comment(s): PONV 40 PLUS YEARS AGO, AFTER REMOVAL KIDNEY STONE. Date of Last Stent Placement:: November 2013 Type of Cardiac Device: Permanent Pacemaker Device Placement Date:: 10/22/2017 Past Psychological History: No Psychological Hx Reported Additional Psychological History / Comment(s): . Smoking Status: Never smoker Past Alcohol Use History: None Reported Additional Past Alcohol Use History / Comment(s): . Past Drug Use History: None Reported - Past Family History Father Family Medical History: No Reported History Additional Family Medical History / Comment(s): . Mother Family Medical History: Cancer Additional Family Medical History / Comment(s): bladder Medications and Allergies Home Medications Medication Instructions Recorded Confirmed Type Aspirin EC [Ecotrin Low Dose] 81 mg PO DAILY 02/27/14 12/13/17 History Edoxaban Tosylate [Savaysa] 60 mg PO DAILY 07/20/16 12/13/17 History Liraglutide [Victoza 2-Ishan] 1.8 units SQ DAILY 11/09/16 12/13/17 History Atorvastatin [Lipitor] 40 mg PO HS 10/22/17 12/13/17 History Insulin Glargine,Hum.rec.anlog 30 units SQ HS 10/22/17 12/13/17 History [Toujeo Solostar] Furosemide [Lasix] 80 mg PO DAILY 10/30/17 12/13/17 History metFORMIN HCL [Glucophage] 850 mg PO TID 10/30/17 12/13/17 History Metoprolol Succinate [Toprol Xl] 50 mg PO DAILY #90 tab.er.24h 10/31/17 Rx Acetaminophen Tab [Tylenol] 650 mg PO Q6HR PRN tab 11/01/17 12/13/17 Rx Allergies Allergy/AdvReac Type Severity Reaction Status Date / Time Iodinated Contrast- Oral and Allergy Severe THROAT Verified 12/13/17 13:19 IV Dye SWELLING [Iodinated Contrast Media - Oral and] iodine Allergy Severe THROAT Verified 12/13/17 13:19 SWELLING, RASH shellfish derived Allergy Severe THROAT Verified 12/13/17 13:19 SWELLING, RASH cefazolin sodium Allergy Dyspnea Verified 12/13/17 13:19 [From Kefzol] Latex, Natural Rubber Allergy Rash/Hives Verified 12/13/17 13:19 levofloxacin [From Levaquin] Allergy Rash/Hives Verified 12/13/17 13:19 piperacillin sodium Allergy THROAT Verified 12/13/17 13:19 [From Zosyn] SWELL, RASH tazobactam sodium Allergy THROAT Verified 12/13/17 13:19 [From Zosyn] SWELL, RASH verapamil AdvReac Severe Hallucinati Verified 12/13/17 13:19 ons seafood Allergy Severe throat Uncoded 12/13/17 12:50 swelling Physical Exam Vitals: Vital Signs Temp Pulse Pulse Resp BP BP BP 12/14/17 11:51 97.7 F 60 18 153/70 12/14/17 08:00 96.9 F L 60 18 162/73 12/14/17 04:00 98 F 60 17 135/71 12/14/17 00:00 98.4 F 60 17 121/56 12/13/17 20:00 98.9 F 60 17 148/58 12/13/17 18:28 97.2 F L 60 18 164/72 12/13/17 17:29 97.1 F L 60 15 156/70 12/13/17 16:15 60 24 164/112 12/13/17 15:26 60 20 167/70 12/13/17 14:20 90 26 H 177/77 12/13/17 14:00 60 20 167/71 Pulse Ox 12/14/17 11:51 94 L 12/14/17 08:00 97 12/14/17 04:00 98 12/14/17 00:00 97 12/13/17 20:00 96 12/13/17 18:28 98 12/13/17 17:29 98 12/13/17 16:15 99 12/13/17 15:26 100 12/13/17 14:20 98 12/13/17 14:00 98 Intake and Output 12/13/17 12/14/17 12/14/17 22:59 06:59 14:59 Intake Total 250 240 Output Total 2300 900 Balance -2049 240 Intake: Oral 250 240 Output: Urine 2300 900 Other: Voiding Method Toilet # Voids 2 Weight 114.577 kg 112.5 kg 112.5 kg GENERAL EXAM: Obese. Alert, fairly comfortable in no apparent distress. HEAD: Normocephalic. EYES: Normal reaction of pupils, equal size. NOSE: Clear with pink turbinates. THROAT: There is crowding the posterior pharynx. No erythema or exudates. NECK: Short. No masses, no JVD. CHEST: No chest wall deformity. LUNGS: Equal air entry with crackles in the left posterior base. CVS: S1 and S2 normal with no audible murmurs, regular rhythm. ABDOMEN: No hepatosplenomegaly, normal bowel sounds, no guarding or rigidity. SPINE: No scoliosis or deformity SKIN: Open sores of the left lower extremity. Changes of chronic venous stasis. CENTRAL NERVOUS SYSTEM: No focal deficits, tone is normal in all 4 extremities. Extremities: There is 1-2+ lower extremity peripheral edema. No clubbing, no cyanosis. Peripheral pulses are intact. Results - Laboratory Findings CBC and BMP: 12/13/17 13:20 12/13/17 13:20 PT/INR, D-dimer PT 13.4 sec (9.0-12.0) H 12/13/17 13:20 INR 1.4 (<1.2) H 12/13/17 13:20 D-Dimer 0.40 mg/L FEU (<0.60) 12/14/17 12:31 Abnormal lab findings: Abnormal Labs 12/13/17 12/13/17 12/13/17 13:20 13:20 13:20 RBC 3.79 L Hgb 9.6 L Hct 30.4 L PT 13.4 H INR 1.4 H Chloride 108 H Carbon Dioxide 20 L BUN 36 H Creatinine 1.20 H Glucose 129 H POC Glucose (mg/dL) Magnesium 1.4 L AST 42 H 12/13/17 12/13/17 12/14/17 17:05 21:38 06:10 RBC Hgb Hct PT INR Chloride Carbon Dioxide BUN Creatinine Glucose POC Glucose (mg/dL) 112 H 219 H 107 H Magnesium AST 12/14/17 12:09 RBC Hgb Hct PT INR Chloride Carbon Dioxide BUN Creatinine Glucose POC Glucose (mg/dL) 181 H Magnesium AST - Diagnostic Findings Chest x-ray: image reviewed Assessment and Plan Plan: Assessment #1 acute exacerbation of chronic CHF, possibly of a diastolic dysfunction. BNP level was elevated and the patient had signs of fluid overload #2 Paroxysmal atrial fibrillation status post ablation and subsequent insertion of a pacemaker #3 Morbid obesity. #4 Coronary artery disease with previous stent placement to the right PDA in 2013. #5 Diabetes mellitus, type II. #6 Hyperlipidemia. #7 Hypertension. #8 Osteoarthritis. #9 History of rectal bleed. #10 Chronic venous stasis of the lower extremities. #11 History of nephrolithiasis. Plan Continue IV Lasix. Clinically improving. Monitor renal function. Monitor body weight. Chest x-ray was reviewed. Resume outpatient medications. Cardiology to evaluate the patient. May need to repeat echocardiogram at a later stage. We'll continue to follow.
[2017-12-14 13:38] LABS: Hemoglobin A1C 7.9 % (4.0-6.0)
[2017-12-14 17:28] LABS: Glucose,Whole Blood 180 mg/dL (75-99)
[2017-12-14] MEDS: FAMOTIDINE 20 MG/2 ML VIAL IV SCH (20:50)
[2017-12-14] MEDS: ATORVASTATIN 40 MG TAB PO SCH (20:54)
[2017-12-14 21:08] LABS: Glucose,Whole Blood 189 mg/dL (75-99)
[2017-12-14] MEDS: INSULIN DETEMIR 100 UNIT/ML 10 ML VIAL SQ SCH (21:51)
[2017-12-14] MEDS ORDERED: MAGNESIUM SULFATE-D5W PMX 1 GM in DEXTROSE/WATER 1 100ML.BAG IVPB ONE (22:00)
[2017-12-15 06:25] LABS: Glucose,Whole Blood 137 mg/dL (75-99)
[2017-12-15 06:39] LABS: Basophils % (A) 1 %; Eosinophils # (A) 0.5 k/uL (0-0.7); Eosinophils % (A) 7 %; HGB 9.8 gm/dL (11.4-16.0); Hypochromasia Slight; Lymphocytes # (A) 1.6 k/uL (1.0-4.8); Lymphocytes % (A) 25 %; MCHC 31.8 g/dL (31.0-37.0); MCV 78.9 fL (80.0-100.0); Mean Platelet Volume 6.6; Monocytes # (A) 0.5 k/uL (0-1.0); Monocytes % (A) 8 %; Neutrophils # (A) 3.6 k/uL (1.3-7.7); Neutrophils % (A) 56 %; Platelet Count 285 k/uL (150-450); RBC 3.93 m/uL (3.80-5.40); WBC 6.4 k/uL (3.8-10.6)
[2017-12-15 07:10] LABS: Calcium 9.1 mg/dL (8.4-10.2); Magnesium 1.7 mg/dL (1.6-2.3); Potassium 4.2 mmol/L (3.5-5.1)
[2017-12-15] MEDS: METOPROLOL SUCCINATE (ER) 50 MG TAB.ER.24H PO SCH (09:16)
[2017-12-15] MEDS: FAMOTIDINE 20 MG/2 ML VIAL IV SCH ×2 (09:16→09:17)
[2017-12-15] MEDS: EDOXABAN TOSYLATE 60 MG TABLET PO SCH (09:16)
--- NOTE | 2017-12-15 11:50 | P.PN ---
Subjective Subjective Patient presents with dyspnea, she still dyspneic although improving. No chest pain,. Her creatinine is down to 0.96. She still on Lasix. Objective - Vital Signs Vital signs: Vital Signs Temp 96.6 F L 12/15/17 08:00 Pulse 60 12/15/17 08:00 Resp 18 12/15/17 08:00 BP 148/63 12/15/17 08:00 Pulse Ox 96 12/15/17 08:00 Intake & Output 12/14/17 12/15/17 12/15/17 18:59 06:59 18:59 Intake Total 840 240 Output Total 250 1200 Balance 590 -960 Weight 112.5 kg 110.8 kg Intake: Oral 840 240 Output: Urine 250 1200 Other: Voiding Method Toilet Toilet # Voids 1 - Exam GENERAL: The patient is alert and oriented x3, not in any acute distress. Well developed, well nourished. HEENT: Pupils are round and equally reacting to light. EOMI. No scleral icterus. No conjunctival pallor. Normocephalic, atraumatic. No pharyngeal erythema. No thyromegaly. CARDIOVASCULAR: S1 and S2 present. No murmurs, rubs, or gallops. -PULMONARY: Chest is clear to auscultation, no wheezing . Bilateral basal crepitation ABDOMEN: Soft, nontender, nondistended, normoactive bowel sounds. No palpable organomegaly. MUSCULOSKELETAL: No joint swelling or deformity. EXTREMITIES: No cyanosis, clubbing, or pedal edema. NEUROLOGICAL: Gross neurological examination did not reveal any focal deficits. SKIN: No rashes. - Labs CBC & Chem 7: 12/15/17 06:20 12/15/17 06:30 Labs: Abnormal Lab Results - Last 24 Hours (Table) 12/13/17 12/14/17 12/14/17 Range/Units 13:20 12:09 17:06 Hgb (11.4-16.0) gm/dL Hct (34.0-46.0) % MCV (80.0-100.0) fL BUN (7-17) mg/dL Glucose (74-99) mg/dL POC Glucose (mg/dL) 181 H 180 H (75-99) mg/dL Hemoglobin A1c 7.9 H (4.0-6.0) % 12/14/17 12/15/17 12/15/17 Range/Units 21:06 06:20 06:22 Hgb 9.8 L (11.4-16.0) gm/dL Hct 31.0 L (34.0-46.0) % MCV 78.9 L (80.0-100.0) fL BUN (7-17) mg/dL Glucose (74-99) mg/dL POC Glucose (mg/dL) 189 H 137 H (75-99) mg/dL Hemoglobin A1c (4.0-6.0) % 12/15/17 Range/Units 06:30 Hgb (11.4-16.0) gm/dL Hct (34.0-46.0) % MCV (80.0-100.0) fL BUN 33 H (7-17) mg/dL Glucose 128 H (74-99) mg/dL POC Glucose (mg/dL) (75-99) mg/dL Hemoglobin A1c (4.0-6.0) % Assessment and Plan Assessment: acute on chronic diastolic CHF, acute dyspnea, mostly secondary to above hypertension Diabetes and Hyperlipidemia Chronic atrial fibrillation, on savaysa and status post pacemaker Possible pulmonary hypertension Chronic wound of the left leg, with no signs of infection or cellulitis Plan: this is a pleasant 67 years old female presents with dyspnea, mostly related to her acute heart failure. Continue with same treatment. Continue symptomatic treatment. Change her Lasix from 80 mg by mouth daily to 40 mg IV twice a day as per cardiology recommendation.cardiology input is appreciated. Call pulmonary consult. GI and DVT prophylaxis. Resume home medication. Further recommendation based on the clinical course of the patient DVT prophylaxis on savaysa GI prophylaxis on Pepcid PT/OT: Pending Prognosis is guarded patient was instructed to follow up with her PCP in one week after discharge for her medical problems including her chronic left leg wound degrees
--- NOTE | 2017-12-15 12:04 | P.PN ---
Subjective Progress Note Date: 12/15/17 67-year-old female patient known history of coronary artery disease, chronic atrial fibrillation with previous ablations and subsequent insertion of a pacemaker along with history of diabetes hypertension hyperlipidemia. The patient presented to hospital because of progressive exertional dyspnea and orthopnea and some leg edema. Chest x-ray showed cardiac megaly and the chest x -ray also showed mild pulmonary vessel congestion. ProBNP level was 4800. Troponin was were negative. EKG was showing a wide-complex rhythm, possibly nasal LBB pattern in addition to atrial fibrillation. The patient has no pleurisy. No hemoptysis. She is currently receiving IV Lasix and she is feeling better and she is less short of breath and she has lost approximately 2 kg since her admission. On today's evaluation of 12/15/2017, the patient is feeling better. She has no specific complaints. She has diuresed adequately and she was taken off the IV Lasix and she was placed on oral Lasix. Edema in lower extremities improved. Renal function stable with a creatinine of 0.9. She is afebrile. Hemoglobin stable at 9.8. No other significant events overnight. No angina. No nausea no vomiting. No altered mentation. Objective - Vital Signs Vital signs: Vital Signs Temp 96.6 F L 12/15/17 08:00 Pulse 60 12/15/17 08:00 Resp 18 12/15/17 08:00 BP 148/63 12/15/17 08:00 Pulse Ox 96 12/15/17 08:00 Intake & Output 12/14/17 12/15/17 12/15/17 18:59 06:59 18:59 Intake Total 840 240 Output Total 250 1200 Balance 590 -960 Weight 112.5 kg 110.8 kg Intake: Oral 840 240 Output: Urine 250 1200 Other: Voiding Method Toilet Toilet # Voids 1 - Exam GENERAL EXAM: Obese. Alert, fairly comfortable in no apparent distress. HEAD: Normocephalic. EYES: Normal reaction of pupils, equal size. NOSE: Clear with pink turbinates. THROAT: There is crowding the posterior pharynx. No erythema or exudates. NECK: Short. No masses, no JVD. CHEST: No chest wall deformity. LUNGS: Equal air entry with crackles in the left posterior base. CVS: S1 and S2 normal with no audible murmurs, regular rhythm. ABDOMEN: No hepatosplenomegaly, normal bowel sounds, no guarding or rigidity. SPINE: No scoliosis or deformity SKIN: Open sores of the left lower extremity. Changes of chronic venous stasis. CENTRAL NERVOUS SYSTEM: No focal deficits, tone is normal in all 4 extremities. Extremities: There is plus 1 lower extremity peripheral edema. No clubbing, no cyanosis. Peripheral pulses are intact. - Labs CBC & Chem 7: 12/15/17 06:20 12/15/17 06:30 Labs: Abnormal Lab Results - Last 24 Hours (Table) 12/13/17 12/14/17 12/14/17 Range/Units 13:20 12:09 17:06 Hgb (11.4-16.0) gm/dL Hct (34.0-46.0) % MCV (80.0-100.0) fL BUN (7-17) mg/dL Glucose (74-99) mg/dL POC Glucose (mg/dL) 181 H 180 H (75-99) mg/dL Hemoglobin A1c 7.9 H (4.0-6.0) % 12/14/17 12/15/17 12/15/17 Range/Units 21:06 06:20 06:22 Hgb 9.8 L (11.4-16.0) gm/dL Hct 31.0 L (34.0-46.0) % MCV 78.9 L (80.0-100.0) fL BUN (7-17) mg/dL Glucose (74-99) mg/dL POC Glucose (mg/dL) 189 H 137 H (75-99) mg/dL Hemoglobin A1c (4.0-6.0) % 12/15/17 Range/Units 06:30 Hgb (11.4-16.0) gm/dL Hct (34.0-46.0) % MCV (80.0-100.0) fL BUN 33 H (7-17) mg/dL Glucose 128 H (74-99) mg/dL POC Glucose (mg/dL) (75-99) mg/dL Hemoglobin A1c (4.0-6.0) % Assessment and Plan Plan: Assessment #1 acute exacerbation of chronic CHF, possibly of a diastolic dysfunction. BNP level was elevated and the patient had signs of fluid overload #2 Paroxysmal atrial fibrillation status post ablation and subsequent insertion of a pacemaker #3 Morbid obesity. #4 Coronary artery disease with previous stent placement to the right PDA in 2013. #5 Diabetes mellitus, type II. #6 Hyperlipidemia. #7 Hypertension. #8 Osteoarthritis. #9 History of rectal bleed. #10 Chronic venous stasis of the lower extremities. #11 History of nephrolithiasis. Plan Switch this patient oral Lasix. Continue wound care to the left lower extremity. Ambulate in the hallway and increased level of activity as tolerated. Discharge per medicine and cardiology
[2017-12-15 12:06] LABS: Glucose,Whole Blood 216 mg/dL (75-99)
[2017-12-15] MEDS: ASPIRIN 81 MG PO SCH (13:02)
--- NOTE | 2017-12-15 14:11 | ECHOF ---
Referral Reason:chf MEASUREMENTS -------- HEIGHT: 172.7 cm WEIGHT: 112.5 kg BP: 162/73 RVIDd: 4.4 cm (< 3.3) IVSd: 1.3 cm (0.6 - 1.1) LVIDd: 4.4 cm (3.9 - 5.3) LVPWd: 1.5 cm (0.6 - 1.1) IVSs: 1.8 cm LVIDs: 3.3 cm LVPWs: 1.8 cm LA Diam: 5.1 cm (2.7 - 3.8) LAESV Index (A-L): 51.66 ml/m Ao Diam: 3.5 cm (2.0 - 3.7) AV Cusp: 1.5 cm (1.5 - 2.6) MV EXCURSION: 16.009 mm (> 18.000) MV EF SLOPE: 29 mm/s (70 - 150) EPSS: 1.0 cm AV maxP.78 mmHg AV meanP.30 mmHg RAP: 15.00 mmHg RVSP: 59.31 mmHg FINDINGS -------- Paced rhythm. This was a technically good study. The left ventricular size is normal. There is moderate concentric left ventricular hypertrophy. O verall left ventricular systolic function is mildly impaired with, an EF between 45 - 50 %. Apical lateral LV wall motion is hypokinetic. Apical inferior LV wall motion is hypokinetic. Apical se ptum LV wall motion is hypokinetic. The right ventricle is severely enlarged. LA is severely dilated >40 ml/m2 The right atrium is normal in size. There is mild aortic valve sclerosis. There is mild aortic stenosis present. Peak/mean gradient a cross the Aortic Valve is 14.78mmHg / 6.30mmHg. The mitral valve leaflets are mildly thickened. Severe mitral annular calcification present. Mild mitral regurgitation is present. Moderate tricuspid regurgitation present. There is severe pulmonary hypertension. The right ventr icular systolic pressure, as measured by Doppler, is 59.31mmHg. Trace/mild (physiologic) pulmonic regurgitation. The aortic root size is normal. The inferior vena cava is dilated with no significant inspiratory collapse which is consistent estima tere right atrial pressure of >15 mmHg. There is no pericardial effusion. CONCLUSIONS -------- 1. Paced rhythm. 2. This was a technically good study. 3. The left ventricular size is normal. 4. There is moderate concentric left ventricular hypertrophy. 5. Overall left ventricular systolic function is mildly impaired with, an EF between 45 - 50 %. 6. Apical lateral LV wall motion is hypokinetic. 7. Apical inferior LV wall motion is hypokinetic. 8. Apical septum LV wall motion is hypokinetic. 9. The right ventricle is severely enlarged. 10. LA is severely dilated >40 ml/m2 11. The right atrium is normal in size. 12. There is mild aortic valve sclerosis. 13. There is mild aortic stenosis present. 14. Peak/mean gradient across the Aortic Valve is 14.78mmHg / 6.30mmHg. 15. The mitral valve leaflets are mildly thickened. 16. Severe mitral annular calcification present. 17. Mild mitral regurgitation is present. 18. Moderate tricuspid regurgitation present. 19. There is severe pulmonary hypertension. 20. The right ventricular systolic pressure, as measured by Doppler, is 59.31mmHg. 21. Trace/mild (physiologic) pulmonic regurgitation. 22. The aortic root size is normal. 23. The inferior vena cava is dilated with no significant inspiratory collapse which is consistent es timated right atrial pressure of >15 mmHg. 24. There is no pericardial effusion. TWIST TESTER: Ella Evans RDCS
[2017-12-15] MEDS: FUROSEMIDE 40 MG TAB PO SCH (16:25)
[2017-12-15] MEDS: metFORMIN 850 MG TAB PO SCH ×2 (16:27→22:25)
[2017-12-15] MEDS: FUROSEMIDE 10 MG/ML 4 ML VIAL IV SCH (17:05)
[2017-12-15 17:30] LABS: Glucose,Whole Blood 184 mg/dL (75-99)
[2017-12-15 21:25] LABS: Glucose,Whole Blood 178 mg/dL (75-99)
[2017-12-15] MEDS: INSULIN DETEMIR 100 UNIT/ML 10 ML VIAL SQ SCH (22:23)
[2017-12-15] MEDS: ATORVASTATIN 40 MG TAB PO SCH (22:25)
[2017-12-16] MEDS: FAMOTIDINE 20 MG TAB PO SCH ×2 (06:08→09:30)
[2017-12-16 06:23] LABS: Glucose,Whole Blood 136 mg/dL (75-99)
[2017-12-16 06:25] LABS: ALT 35 U/L (9-52); AST 21 U/L (14-36)
[2017-12-16] MEDS ORDERED: SPIRONOLACTONE 25 MG TAB PO SCH (09:00)
--- NOTE | 2017-12-16 09:02 | PN ---
PROGRESS NOTE This patient was admitted with symptoms of shortness of breath and mild heart failure. Patient is feeling better. Her breathing is significantly improved and she diuresed well with IV Lasix. Patient's renal symptoms remain stable. Creatinine is 0.9. The patient's blood pressure is 148/63 mmHg. Heart rate is 60 per minute, oxygen saturation is 96%. Heart: S1 and S2 normal. Lungs are clinically clear to auscultation and percussion. Abdomen is negative. No significant leg edema is noted. The patient's echocardiogram revealed left ventricular hypertrophy with normal left ventricular systolic function. There is evidence of moderate degree of pulmonary hypertension. We will recommend to continue the patient on the current medications. MMODL / IJN: [id number] /
[2017-12-16] MEDS: FUROSEMIDE 40 MG TAB PO SCH (09:30)
[2017-12-16] MEDS: metFORMIN 850 MG TAB PO SCH (09:30)
[2017-12-16] MEDS: METOPROLOL SUCCINATE (ER) 50 MG TAB.ER.24H PO SCH (09:30)
[2017-12-16] MEDS: ASPIRIN 81 MG PO SCH (09:30)
[2017-12-16] MEDS: EDOXABAN TOSYLATE 60 MG TABLET PO SCH (09:30)
[2017-12-16 09:40] VITALS: RESP 20
--- NOTE | 2017-12-16 10:59 | P.PN ---
Subjective Patient resting in chair at bedside. States she is improved. Attempting to ambulate in the hallway and to bathroom. Diuresing well Objective - Vital Signs Vital signs: Vital Signs Temp 97.1 F L 12/16/17 08:00 Pulse 60 12/16/17 08:00 Resp 20 12/16/17 08:00 BP 144/68 12/16/17 08:00 Pulse Ox 97 12/16/17 08:00 Intake & Output 12/15/17 12/16/17 12/16/17 18:59 06:59 18:59 Intake Total 400 Output Total 300 Balance -300 400 Weight 110.7 kg Intake: Oral 400 Output: Urine 300 Other: Voiding Method Toilet Toilet # Voids 3 3 - Constitutional General appearance: Present: obese - EENT Eyes: Present: PERRLA Ears: bilateral: normal - Neck Neck: Present: normal ROM - Respiratory Respiratory: bilateral: diminished - Cardiovascular Rhythm: regular - Gastrointestinal General gastrointestinal: Present: soft - Integumentary Integumentary: Present: normal - Neurologic Neurologic: Present: CNII-XII intact - Musculoskeletal Musculoskeletal: Present: gait normal - Psychiatric Psychiatric: Present: A&O x's 3, appropriate affect, intact judgment & insight - Labs CBC & Chem 7: 12/15/17 06:20 12/15/17 06:30 Labs: Abnormal Lab Results - Last 24 Hours (Table) 12/15/17 12/15/17 12/15/17 Range/Units 11:56 17:16 21:05 POC Glucose (mg/dL) 216 H 184 H 178 H (75-99) mg/dL 12/16/17 Range/Units 06:17 POC Glucose (mg/dL) 136 H (75-99) mg/dL - Imaging and Cardiology Chest x-ray: report reviewed Assessment and Plan Plan: Assessment Acute on chronic systolic congestive heart failure ejection fraction 45-50% severe pulmonary hypertension Hypertension diabetes2 Hyperlipidemia Chronic atrial flutter fibrillation post pacemaker EKG 100% paced Chronic wound of left leg Morbid obesity Plan Continue consultation with pulmonology and cardiology
[2017-12-16 11:30] LABS: Glucose,Whole Blood 157 mg/dL (75-99)
[2017-12-16 11:34] VITALS: BP 150/66; TEMP 96.9
--- NOTE | 2017-12-16 12:26 | P.DS ---
Providers Date of admission: 12/13/17 16:11 Expected date of discharge: 12/16/17 Attending physician: Edgardo Juarez Consults: 12/13/17 16:14 Consult Physician Routine Consulting Provider: Claude Kern Consult Reason/Comments: CHF Do you want consulting provider notified?: Yes 12/14/17 11:00 Consult Physician Urgent Consulting Provider: Michael Beard Consult Reason/Comments: dyspnea Do you want consulting provider notified?: Yes Primary care physician: Edgardo Juarez Hospital Course: 67-year-old female was admitted to the emergency room will from acute exacerbation of congestive for failure. Patient had become increasingly dyspneic patient was seen by cardiology diuresis. Patient states she is improved and wanting to be discharged no changes in her medications Assessment acute and chronic congestive heart failure systolic dysfunction ejection fraction 45% hypertension severe pulmonary hypertension diabetes type II hyperlipidemia chronic atrial fibrillation post pacemaker 100% paced chronic wound of left leg morbid obesity Plan follow up with family physician and cardiologis Patient Condition at Discharge: Stable Plan - Discharge Summary Discharge Rx Participant: No New Discharge Prescriptions: New Insulin Detemir [Levemir] 30 unit SQ HS syr Continue Aspirin EC [Ecotrin Low Dose] 81 mg PO DAILY Edoxaban Tosylate [Savaysa] 60 mg PO DAILY Atorvastatin [Lipitor] 40 mg PO HS metFORMIN HCL [Glucophage] 850 mg PO TID Furosemide [Lasix] 80 mg PO DAILY Metoprolol Succinate [Toprol Xl] 50 mg PO DAILY #90 tab.er.24h Acetaminophen Tab [Tylenol] 650 mg PO Q6HR PRN tab PRN Reason: Mild Pain Discontinued Liraglutide [Victoza 2-Ishan] 1.8 units SQ DAILY Insulin Glargine,Hum.rec.anlog [Touchatoo Solostar] 30 units SQ HS Discharge Medication List Aspirin EC [Ecotrin Low Dose] 81 mg PO DAILY 02/27/14 [History] Edoxaban Tosylate [Savaysa] 60 mg PO DAILY 07/20/16 [History] Atorvastatin [Lipitor] 40 mg PO HS 10/22/17 [History] Furosemide [Lasix] 80 mg PO DAILY 10/30/17 [History] metFORMIN HCL [Glucophage] 850 mg PO TID 10/30/17 [History] Metoprolol Succinate [Toprol Xl] 50 mg PO DAILY #90 tab.er.24h 10/31/17 [Rx] Acetaminophen Tab [Tylenol] 650 mg PO Q6HR PRN tab 11/01/17 [Rx] Insulin Detemir [Levemir] 30 unit SQ HS syr 12/16/17 [Rx] Follow up Appointment(s)/Referral(s): Edgardo Juarez MD [Primary Care Provider] - 12/23/17 8:40 am (Saturday) Patient Instructions/Handouts: Heart Failure (DC)
--- NOTE | 2017-12-16 13:13 | P.PN ---
Subjective Progress Note Date: 12/16/17 This is 67-year-old female with known history of coronary artery disease and prior PCI, diabetes, hypertension, hyperlipidemia, paroxysmal atrial fibrillation, prior pacemaker implantation she was progressively worsening shortness of breath. Patient was found to be in mild congestive heart failure. She diuresed on IV Lasix, overall she states she's feeling significantly better today. Blood pressure this morning 144/60 with a heart rate in the 60s, 97% on room air. Patient did get up to the chair today ambulating to the bathroom without any symptoms. Objective - Vital Signs Vital signs: Vital Signs Temp 96.9 F L 12/16/17 11:33 Pulse 60 12/16/17 11:33 Resp 20 12/16/17 11:33 BP 150/66 12/16/17 11:33 Pulse Ox 96 12/16/17 11:33 Intake & Output 12/15/17 12/16/17 12/16/17 18:59 06:59 18:59 Intake Total 400 Output Total 300 Balance -300 400 Weight 110.7 kg Intake: Oral 400 Output: Urine 300 Other: Voiding Method Toilet Toilet # Voids 3 3 - Exam PHYSICAL EXAMINATION: GENERAL: 67-year-old female in no acute distress at the time of my examination HEENT: Head is atraumatic, normocephalic. Pupils equal, round. Sclera anicteric. Conjunctiva are clear. Mucous membranes of the mouth are moist. Neck is supple. There is no elevated jugular venous pressure.] bruit is heard. HEART EXAMINATION: Heart S1 and S2 irregularly irregular systolic murmur is heard. CHEST EXAMINATION: Lungs are clear to auscultation and precussion. No chest wall tenderness is noted on palpation or with deep breathing. ABDOMEN: Soft, nontender. Bowel sounds are heard. No organomegaly noted. EXTREMITIES: 2+ peripheral pulses with trace evidence of peripheral edema and no calf tenderness noted. NEUROLOGIC patient is awake, alert and oriented ?-3. . - Labs CBC & Chem 7: 12/15/17 06:20 12/15/17 06:30 Labs: Abnormal Lab Results - Last 24 Hours (Table) 12/15/17 12/15/17 12/16/17 Range/Units 17:16 21:05 06:17 POC Glucose (mg/dL) 184 H 178 H 136 H (75-99) mg/dL 12/16/17 Range/Units 11:27 POC Glucose (mg/dL) 157 H (75-99) mg/dL Assessment and Plan Plan: Assessment and plan #1 congestive heart failure, diastolic, acute on chronic. Most recent echo was performed in November 2015 which revealed a normal ejection fraction. Patient did have a AUSTIN performed in July 2016 which revealed a normal ejection fraction, mild to moderate TR and mild MR. #2 hypertension #3 diabetes #4 hyperlipidemia #5 chronic persistent atrial fibrillation, on Savaysa for anticoagulation #6 prior pacemaker implantation in October of this year #7 pulmonary vein isolation for atrial fibrillation in December of this year Plan Doppler study performed here revealed an ejection fraction of 45-50%, moderate concentric L the age, dilated severely dilated, moderate tricuspid regurg with severe pulmonary hypertension. Patient overall is feeling significantly better today. From cardiology's perspective, she'll be able to be discharged once cleared by primary. We will make a follow-up appointment in the office with Dr. Ralph, outpatient stress test. DNP note has been reviewed, I agree with a documented findings and plan of care. Patient was seen and examined.
== END 2017-12-16 14:00 | disposition home or self-care (01) ==
LOC: EC 12:24 → 6SEL 16:11 → INTOOBSV 16:11 → 6SEL 17:08
PROVIDERS: ADMIT Family Medicine; ATTEND Family Medicine
DX: I11.0 Hypertensive heart disease with heart failure (principal); I50.43 Acute on chronic combined systolic (congestive) and diastolic (congestive) heart failure; I27.20 Pulmonary hypertension, unspecified; E11.9 Type 2 diabetes mellitus without complications; E78.5 Hyperlipidemia, unspecified; I48.2 Chronic atrial fibrillation; E66.01 Morbid (severe) obesity due to excess calories; Z68.37 Body mass index [BMI] 37.0-37.9, adult; M19.90 Unspecified osteoarthritis, unspecified site; Z87.01 Personal history of pneumonia (recurrent); Z95.5 Presence of coronary angioplasty implant and graft; Z95.0 Presence of cardiac pacemaker; D64.9 Anemia, unspecified; I87.8 Other specified disorders of veins; L97.929 Non-pressure chronic ulcer of unspecified part of left lower leg with unspecified severity; N28.9 Disorder of kidney and ureter, unspecified; I48.92 Unspecified atrial flutter; I25.10 Atherosclerotic heart disease of native coronary artery without angina pectoris; Z79.899 Other long term (current) drug therapy; Z79.4 Long term (current) use of insulin; Z79.82 Long term (current) use of aspirin; Z79.84 Long term (current) use of oral hypoglycemic drugs; Z88.1 Allergy status to other antibiotic agents; Z91.041 Radiographic dye allergy status; Z91.040 Latex allergy status; Z88.0 Allergy status to penicillin; Z91.013 Allergy to seafood; Z88.8 Allergy status to other drugs, medicaments and biological substances; Z91.048 Other nonmedicinal substance allergy status; Z87.442 Personal history of urinary calculi; Z87.19 Personal history of other diseases of the digestive system; Z80.52 Family history of malignant neoplasm of bladder
CPT/HCPCS: 99285 ×2; 96375 ×2; 96376 ×2; 96365; 96366; 36415; 93005; 93306; 85379; 83880 ×3; 80053; 80048; 82550; 82553; 83735 ×3; 84450; 84460; 84484; 85025 ×2; 85610; 85730; 83036; G0378 ×4; J1940 ×2; J3475

== ENCOUNTER → 2017-12-13 | Outpatient (CLI) | payer MEDICARE, BC ==
--- NOTE | 2017-12-13 10:55 | XR ---
EXAMINATION TYPE: XR chest 2V DATE OF EXAM: 12/13/2017 COMPARISON: 10/30/2017 TECHNIQUE: PA and lateral views submitted. HISTORY: Shortness of breath FINDINGS: The lungs are clear and there is no pneumothorax, pleural effusion, or focal pneumonia. Cardiac dev ice is seen which appears stable in position. The heart is enlarged. Mild central coarsened interstit ium. Chronic rib deformity seen. IMPRESSION: 1. Mild Central coarsened interstitium can be seen with early or mild venous congestion correlate cli nically.
== END | disposition home or self-care (01) ==
LOC: RADXRMAIN 09:58
PROVIDERS: ATTEND Family Medicine
DX: R06.09 Other forms of dyspnea (principal)
CPT/HCPCS: 71046

== ENCOUNTER → 2018-06-09 | Outpatient (CLI) | payer MEDICARE, BC ==
--- NOTE | 2018-06-09 12:59 | US ---
LOWER EXTREMITY VENOUS INSUFFICIENCY SIDE PERFORMED: Bilateral 1) Color flow is present and patency is documented in the following vessels. No DVT or SVT is noted . EIV Common Femoral Vein Deep Femoral Vein Femoral Vein Popliteal Vein Proximal Calf Veins Greater Saph Vein Upper Small Saph Vein 2) There is venous reflux noted at the following venous levels: Right GSV at junction Right LSV at junction Left CFV Left GSV at junction, at mid thigh and at knee Left mid popiteal IMPRESSION: Venous reflux as noted above.
--- NOTE | 2018-06-11 09:09 | P.ARTDOP ---
Arterial Doppler LOWER EXTREMITY ARTERIAL DOPPLER: DATE OF SERVICE: 06/09/2018 Reason for study: Left calf ulcer. Doppler waveforms: Multiphasic bilaterally throughout but some blunting distally on the right. Pulse volume recording: Mild blunting distally on the right. Pressure gradients: Only at the foot level on the right. Ankle-brachial indices: Cannot be occluded on either side. Toe pressures: 55 on the right, 87 on the left Impression: Normal study proximally. Suspect calcific wall disease due to nonocclusive status of the ankle. Perfusion pressures appear adequate at the digital level for healing. Calf level and above it is probably normal. Clinical correlation recommended does not likely correspond with calf ulcer for arterial disease to be the etiology..
== END | disposition home or self-care (01) ==
LOC: RADUSWWP 08:56
PROVIDERS: ATTEND Family Medicine
DX: I87.2 Venous insufficiency (chronic) (peripheral) (principal)
CPT/HCPCS: 93922; 93923; 93970

== ENCOUNTER → 2018-12-01 | Outpatient (CLI) | payer MEDICARE, BC ==
--- NOTE | 2018-12-01 13:32 | US ---
EXAMINATION TYPE: US renals and bladder DATE OF EXAM: 12/01/2018 COMPARISON: NONE CLINICAL HISTORY: N19 Unspecified kidney failure. abnormal labs. No pain. EXAM MEASUREMENTS: Right Kidney: 10.2 x 4.9 x 5.6 cm Left Kidney: 11.3 x 4.9 x 6.4 cm Right Kidney: No hydronephrosis or masses seen. Cortical thinning that appears lobular. Left Kidney: No hydronephrosis or masses seen. Cortical thinning that appears lobular. Bladder: mildly distended. Left jet seen There is no evidence for hydronephrosis at this point in time. No nephrolithiasis is seen. No mary s are identified. The urinary bladder is anechoic. Left ureteral jets are seen. IMPRESSION: Renal cortical thinning. Otherwise unremarkable study.
== END | disposition home or self-care (01) ==
LOC: RADUSWWP 12:52
PROVIDERS: ATTEND Family Medicine
DX: N19 Unspecified kidney failure (principal)
CPT/HCPCS: 76770

== ENCOUNTER → 2019-01-01 | Outpatient (CLI) | payer MEDICARE, BC ==
--- NOTE | 2019-01-01 15:03 | XR ---
EXAMINATION TYPE: XR chest 2V DATE OF EXAM: 01/01/2019 COMPARISON: Prior chest x-ray 12/13/2017 HISTORY: Heart failure TECHNIQUE: Frontal and lateral views of the chest are obtained. FINDINGS: Pacemaker is stable. Heart is enlarged. No evident airspace disease, pneumothorax, or pleur al effusion. There is increased AP diameter of the chest. There is no focal air space opacity, pleura l effusion, or pneumothorax seen. The cardiac silhouette size is within normal limits. Old right-s ided rib fractures eighth rib is stable. Aorta is dense. The osseous structures are intact. IMPRESSION: No acute cardiopulmonary process.
== END | disposition home or self-care (01) ==
LOC: RADXRMAIN 14:29
PROVIDERS: ATTEND Nurse Practitioner Family
DX: I50.9 Heart failure, unspecified (principal)
CPT/HCPCS: 71046

== ENCOUNTER → 2019-01-22 | Day surgery (SDC) | payer MEDICARE, BC ==
[2019-01-19 14:37] VITALS: BMI 39.2
[~2019-01-22] MED LIST changes: +ACETAMINOPHEN TAB 325 MG TAB PO PRN; +ATORVASTATIN 40 MG TAB PO SCH; +BENZOCAINE SPRAY 1 CAN TOPICAL PRN; -CLINDAMYCIN 900 MG in DEXTROSE 5% IN WATER 50 ML IVPB ONE; +EDOXABAN TOSYLATE 60 MG TABLET PO SCH; +FERROUS SULFATE 325 MG TAB PO SCH; +FUROSEMIDE 40 MG TAB PO PRN; +FUROSEMIDE 40 MG TAB PO SCH; +INSULIN GLARGINE HUM REC ANLOG 34 UNIT SQ SCH; +LISINOPRIL 5 MG TAB PO SCH; +METOPROLOL SUCCINATE (ER) 50 MG TAB.ER.24H PO SCH; +MIDAZOLAM (PF) 2 MG/2 ML VIAL IV ONE; +NON FORMULARY DRUG (Aspirin Ec 81 MG) PO SCH; +NON FORMULARY DRUG (Liraglutide [Victoza 2-Pak] 1.8 MG) SQ SCH; +SODIUM CHLORIDE 0.9% 500 ML 500 ML IV ONE; +fentaNYL (PF) 50 MCG/ML 2 ML AMP IV ONE; +fentaNYL (PF) 50 MCG/ML 2 ML AMP IVP ONE; +fentaNYL (PF) 50 MCG/ML 2 ML AMP ONE; +metFORMIN 850 MG TAB PO SCH
[2019-01-22 07:07] VITALS: PULSE 60; TEMP 97.9
[2019-01-22] MEDS: BENZOCAINE SPRAY 1 CAN MUCOUS MEM ONE ×2 (07:22→07:27)
[2019-01-22 07:25] LABS: Glucose,Whole Blood 181 mg/dL (75-99)
[2019-01-22 07:30] VITALS: RESP 18
--- NOTE | 2019-01-22 08:08 | ECHOT ---
TRANSESOPHAGEAL ECHOCARDIOGRAM INDICATION: Evaluation of mitral valve. PROCEDURE: After explaining the procedure to the patient, its risks and the complications, blood pressure, heart rate, O2 saturation were monitored. The throat was sprayed with Cetacaine. She received 3 mg intravenous Versed, 50 mcg intravenous fentanyl. The probe was introduced in the esophagus without difficulties. Images were obtained. Following that, the probe was removed. There was no immediate complication. FINDINGS: Left atrial size is dilated. Spontaneous contrast was noted. Left atrial appendage is normal. Right atrial size is dilated. Left ventricular size is normal. The overall systolic function showed ejection fraction 50% to 55%. The mitral valve revealed mild anulus calcification. Aortic valve revealed fibrocalcific changes of the aortic cusp with preserved opening. Tricuspid valve is normal. A wire was noted in the right ventricle. Contrast bubble study revealed no evidence of shunting across the interatrial septum with Valsalva maneuver. No pericardial effusion was noted. Doppler, pulse wave and color Doppler were obtained and revealed a moderate mitral with moderate to severe tricuspid regurgitation. The estimated right ventricular systolic pressure was 48 mmHg. There was no shunting by color Doppler study. CONCLUSION: 1. Biatrial enlargement with spontaneous contrast in the left atrium. 2. Normal left ventricular size with ejection fraction 50% to 55%. 3. Mitral anulus calcification with moderate mitral regurgitation, central. 4. Moderate to severe tricuspid regurgitation with mild to moderate pulmonary hypertension with an estimated right ventricular systolic pressure 48 mmHg. 5. No shunting across the interatrial septum. 6. No pericardial effusion. MMODL / IJN: [id number] /
[2019-01-22 08:33] VITALS: BP 141/65
== END ==
LOC: CATHCVL 06:17
PROVIDERS: ATTEND Internal Medicine Interventional Cardiology
DX: I08.1 Rheumatic disorders of both mitral and tricuspid valves (principal); I27.20 Pulmonary hypertension, unspecified; I48.1 Persistent atrial fibrillation; I25.10 Atherosclerotic heart disease of native coronary artery without angina pectoris; G47.33 Obstructive sleep apnea (adult) (pediatric); E78.2 Mixed hyperlipidemia; I11.0 Hypertensive heart disease with heart failure; I50.9 Heart failure, unspecified; Z91.040 Latex allergy status; Z79.82 Long term (current) use of aspirin; Z79.01 Long term (current) use of anticoagulants; Z79.4 Long term (current) use of insulin; Z79.899 Other long term (current) drug therapy; Z91.048 Other nonmedicinal substance allergy status; Z88.1 Allergy status to other antibiotic agents; Z88.0 Allergy status to penicillin; Z88.2 Allergy status to sulfonamides; Z88.8 Allergy status to other drugs, medicaments and biological substances; Z95.0 Presence of cardiac pacemaker; Z95.5 Presence of coronary angioplasty implant and graft; E11.51 Type 2 diabetes mellitus with diabetic peripheral angiopathy without gangrene; E11.622 Type 2 diabetes mellitus with other skin ulcer; L98.499 Non-pressure chronic ulcer of skin of other sites with unspecified severity
CPT/HCPCS: 93312; 93320; 93325; J3010; J2250

== ENCOUNTER → 2019-02-04 | Day surgery (SDC) | payer MEDICARE, BC ==
[2019-02-02 10:26] VITALS: BMI 38.7
[~2019-02-04] MED LIST changes: -ACETAMINOPHEN TAB 325 MG TAB PO PRN; +ALPRAZolam 0.25 MG TAB PO PRN; +ALPRAZolam 0.5 MG TAB PO PRN; +ASPIRIN 325 MG TAB PO STA; +ATORVASTATIN 80 MG TAB PO STA; -BENZOCAINE SPRAY 1 CAN TOPICAL PRN; -EDOXABAN TOSYLATE 60 MG TABLET PO SCH; -FUROSEMIDE 40 MG TAB PO PRN; -FUROSEMIDE 40 MG TAB PO SCH; +HEPARIN SODIUM 1,000 UN/ML (10ML VL) IV ONE; +HEPARIN SODIUM 1,000 UN/ML (10ML VL) ONE; +HEPARIN SODIUM,PORCINE 30 ML 30 ML ONE; +INSULIN ASPART (NovoLOG) 100 UNIT/ML VIAL SQ ONE; +IOPAMIDOL-370 125ML BTL INJ ONE; +LIDOCAINE 1% INJ 10MG/ML (20 ML MDV) ONE; +LIDOCAINE 1% INJ 10MG/ML (20 ML MDV) SQ ONE; +NITROGLYCERIN SL TABS 0.4 MG TAB SUBLINGUAL PRN; -NON FORMULARY DRUG (Aspirin Ec 81 MG) PO SCH; +RX INFO: IV CONTRAST WAS GIVEN 1 EACH MISC MISCELLANE PRN; +SODIUM CHLORIDE 0.9% 1,000 ML in EMPTY BAG 1 BAG IV ONE; -SODIUM CHLORIDE 0.9% 500 ML 500 ML IV ONE; +VERAPAMIL 2.5 MG/ML 2 ML AMP ONE; -fentaNYL (PF) 50 MCG/ML 2 ML AMP IVP ONE; -metFORMIN 850 MG TAB PO SCH
[2019-02-04 10:51] LABS: Glucose,Whole Blood 318 mg/dL (75-99)
[2019-02-04 11:14] VITALS: PULSE 60; TEMP 97.6
[2019-02-04 11:24] LABS: Calcium 9.3 mg/dL (8.4-10.2); Potassium 5.4 mmol/L (3.5-5.1)
[2019-02-04 11:29] LABS: Basophils % (A) 0 %; Eosinophils % (A) 0 %; HCT 34.4 % (34.0-46.0); HGB 10.8 gm/dL (11.4-16.0); Lymphocytes # (A) 0.9 k/uL (1.0-4.8); Lymphocytes % (A) 10 %; MCH 26.3 pg (25.0-35.0); MCHC 31.5 g/dL (31.0-37.0); MCV 83.5 fL (80.0-100.0); Mean Platelet Volume 7.1; Monocytes # (A) 0.3 k/uL (0-1.0); Monocytes % (A) 3 %; Neutrophils # (A) 7.5 k/uL (1.3-7.7); Neutrophils % (A) 86 %; Platelet Count 319 k/uL (150-450); RBC 4.12 m/uL (3.80-5.40); RDW 15.9 % (11.5-15.5); WBC 8.7 k/uL (3.8-10.6)
[2019-02-04] MEDS: VERAPAMIL SYRINGE (5 MG/10 ML) INTRAARTER ONE ×2 (13:02→13:24)
[2019-02-04 13:39] LABS: O2 Sat Blood Gas 95.1 %
[2019-02-04 13:40] LABS: O2 Sat Blood Gas 48.2 %; O2 Sat Blood Gas 50.5 %
--- NOTE | 2019-02-04 14:17 | LTR ---
DATE OF SERVICE: 02/04/2019 RE: Osiris Mendoza Dear Dr. Juarez: I had the pleasure to perform cardiac catheterization on Mrs. Mendoza at [facility] on February 04, 2019 and a full copy of the procedure note will be forwarded to you. In brief, she was found to have mild obstructive coronary disease with evidence of pulmonary hypertension. At this time, I will maximize her medical therapy and I would recommend to undergo further evaluation regarding the etiology of her pulmonary hypertension. Thank you again for allowing me to participate in this patient's care. Please feel free to call for any questions. Sincerely yours, MD YURI AndersonL / SADEN: [phone] /
--- NOTE | 2019-02-04 14:17 | CC ---
CARDIAC CATHETERIZATION REPORT Mrs. Mendoza is a 68-year-old female with known history of hypertension, hyperlipidemia, diabetes mellitus, history of coronary artery disease who has been complaining of progressive symptoms of dyspnea and underwent myocardial perfusion imaging that revealed evidence of inducible ischemia. In view of that, recommendation made regarding cardiac catheterization. The procedures, risks, and complications were discussed with the patient who is in full understanding and agreement. PROCEDURE: Patient was brought to microbiology lab analyst in a fasting semi-sedated state after receiving fentanyl and Benadryl and achieving moderate conscious sedated state. Using Xylocaine anesthesia and Seldinger technique, a 6-Italian sheath was introduced in the right radial artery. Subsequently, the intravenous catheter in the basilic vein was exchanged to a 6-Italian sheath and subsequently right heart catheterization was performed using Shell-Juan catheter, multiple samples and pressures were calculated. Cardiac output by thermodilution was calculated. Following that, selective right and left coronary angiography were performed using 5-Italian 3.5 bend right and left Domingo catheter, multiple views of the coronary artery including hemiaxial views were obtained. Following that, catheter and sheath were removed. Hemostasis was obtained with deployment of a TR band. There was no immediate complication. Of note, the patient received 5000 units of intravenous heparin as well as intra-arterial verapamil. FINDINGS: HEMODYNAMICS: Right atrial saturation of 48%, pulmonary artery saturation 50%, femoral artery saturation 95%. Cardiac output by thermodilution is 3.7 L/minute and by Мария 3.2 L/minute. Pulmonary artery systolic pressure of 64 with a diastolic of 26 and a mean of 40 mmHg. Pulmonary capillary wedge pressure of V-wave of 36 with a mean of 20 mmHg. Right ventricular systolic pressure of 62 with an end-diastolic of 60 mmHg. Right atrium, V-wave of 18 with a mean of 16 mmHg. LEFT MAIN: This is a short size vessel, large in caliber, bifurcating into left circumflex, left anterior descending artery. Left main coronary artery has no evidence of high-grade stenosis. LEFT ANTERIOR DESCENDING ARTERY: This is a large-sized vessel, reaching toward the apex with a wraparound apex segment giving rise to a large diagonal branch. The proximal left anterior descending artery is calcified and has a plaque of 30% without any evidence of high-grade stenosis. LEFT CIRCUMFLEX: This is a nondominant vessel, giving rise to 3 obtuse marginal branch, large in caliber. The left circumflex has mild intimal disease proximally of 10%. The rest of the vessel has no high-grade stenosis. RIGHT CORONARY ARTERY: This is a large dominant vessel, calcified in the mid segment. The right coronary artery stented segment in the PDA is patent. There is no evidence of in-stent restenosis. There is mild plaque of 10% proximally. CONCLUSION: 1. Evidence of pulmonary hypertension. 2. Calcified coronary arteries. 3. Mild to moderate disease involving the left anterior descending artery and the right coronary artery. 4. No evidence of restenosis at the site of the prior stenting in the right coronary artery. RECOMMENDATION: In view of finding anatomy, I recommend continue medical therapy. She will be further evaluated regarding her pulmonary hypertension and depending on her progress, further recommendation will be made. Those findings and recommendations were discussed with the patient and her family who are in full understanding and agreement. Duration of procedure is 38 minutes. MMODL / IJN: [id number] /
[2019-02-04 15:46] VITALS: BP 132/56; RESP 18
== END | disposition home or self-care (01) ==
LOC: CATHCVL 10:15
PROVIDERS: ATTEND Internal Medicine Interventional Cardiology
DX: I25.10 Atherosclerotic heart disease of native coronary artery without angina pectoris (principal); I25.84 Coronary atherosclerosis due to calcified coronary lesion; I27.20 Pulmonary hypertension, unspecified; I48.1 Persistent atrial fibrillation; R06.09 Other forms of dyspnea; I25.9 Chronic ischemic heart disease, unspecified; I08.1 Rheumatic disorders of both mitral and tricuspid valves; L97.929 Non-pressure chronic ulcer of unspecified part of left lower leg with unspecified severity; Z95.0 Presence of cardiac pacemaker; E11.51 Type 2 diabetes mellitus with diabetic peripheral angiopathy without gangrene; Z95.5 Presence of coronary angioplasty implant and graft; Z88.1 Allergy status to other antibiotic agents; Z91.041 Radiographic dye allergy status; Z91.048 Other nonmedicinal substance allergy status; Z91.040 Latex allergy status; Z88.0 Allergy status to penicillin; Z88.2 Allergy status to sulfonamides; Z88.8 Allergy status to other drugs, medicaments and biological substances; G47.33 Obstructive sleep apnea (adult) (pediatric); E78.2 Mixed hyperlipidemia; I13.0 Hypertensive heart and chronic kidney disease with heart failure and stage 1 through stage 4 chronic kidney disease, or unspecified chronic kidney disease; N18.9 Chronic kidney disease, unspecified; I50.30 Unspecified diastolic (congestive) heart failure; E11.22 Type 2 diabetes mellitus with diabetic chronic kidney disease; Z79.82 Long term (current) use of aspirin; Z79.01 Long term (current) use of anticoagulants; Z79.899 Other long term (current) drug therapy; Z79.4 Long term (current) use of insulin; E78.00 Pure hypercholesterolemia, unspecified
CPT/HCPCS: 93460; 80048; 85018; 82810; 85025; C1751; C1894; J2001; J3010; J1644; Q9967; J2250

== ENCOUNTER 2019-03-25 14:16 | Inpatient (IN) | payer MEDICARE, BC ==
[2019-03-25] MEDS ORDERED: SODIUM CHLORIDE 0.9% 500 ML 500 ML IV STA (15:19)
[2019-03-25] MEDS ORDERED: SODIUM CHLORIDE 0.9% 1,000 ML IV STA (15:19)
[2019-03-25] MEDS ORDERED: ONDANSETRON 4 MG/2 ML VIAL IVP STA (15:19)
[2019-03-25 15:36] LABS: Anisocytosis Slight; Basophils % (A) 0 %; Eosinophils # (A) 0.1 k/uL (0-0.7); Eosinophils % (A) 1 %; HCT 35.8 % (34.0-46.0); HGB 11.3 gm/dL (11.4-16.0); Lymphocytes % (A) 12 %; MCH 27.5 pg (25.0-35.0); MCHC 31.4 g/dL (31.0-37.0); MCV 87.4 fL (80.0-100.0); Mean Platelet Volume 6.9; Monocytes # (A) 0.4 k/uL (0-1.0); Monocytes % (A) 5 %; Neutrophils # (A) 6.7 k/uL (1.3-7.7); Neutrophils % (A) 80 %; Platelet Count 284 k/uL (150-450); RDW 16.2 % (11.5-15.5); WBC 8.4 k/uL (3.8-10.6)
[2019-03-25 15:45] LABS: Albumin 4.5 g/dL (3.5-5.0); Calcium 9.8 mg/dL (8.4-10.2); Magnesium 1.6 mg/dL (1.6-2.3); Potassium 5.5 mmol/L (3.5-5.1); Total Bilirubin 0.6 mg/dL (0.2-1.3); Total Protein 7.4 g/dL (6.3-8.2)
--- NOTE | 2019-03-25 15:47 | ED ---
General Adult HPI - General Chief complaint: Shortness of Breath Stated complaint: NVD, Chest Pain/SOB Time Seen by Provider: 03/25/19 14:25 Source: patient, RN notes reviewed, old records reviewed Mode of arrival: wheelchair Limitations: no limitations - History of Present Illness Initial comments: This is a 68-year-old female presents emergency Department with the complaint of vomiting since 4:00 this morning. Patient states she's also had diarrhea since that time. Patient states she's vomited at least 10 times an been unable to keep any fluid or food down. Patient states after she fell and she's had some chest pain but only after she vomited. Patient also states she's very short of breath as well. Patient denies any lightheadedness or dizziness. Patient does states she is weak. Patient denies any fever or chills. Patient denies any back pain. Patient denies any dysuria hematuria urinary frequency. Patient has a history of heart failure atrial fibrillation diabetes and high cholesterol. - Related Data Home Medications Medication Instructions Recorded Confirmed Aspirin EC [Ecotrin Low Dose] 81 mg PO DAILY 02/27/14 02/02/19 Edoxaban Tosylate [Savaysa] 60 mg PO DAILY 07/20/16 02/02/19 Atorvastatin [Lipitor] 40 mg PO HS 10/22/17 02/02/19 metFORMIN HCL [Glucophage] 850 mg PO TID 10/30/17 02/02/19 Insulin Glargine,Hum.rec.anlog 34 units SQ HS 12/16/17 02/02/19 [Dorothy Astorga] Liraglutide [Victoza 2-Ishan] 1.8 mg SQ DAILY 12/16/17 02/02/19 Furosemide [Lasix] 40 mg PO 0800,1400 06/04/18 02/02/19 Furosemide [Lasix] 40 mg PO 2000 PRN 06/04/18 02/02/19 Ferrous Sulfate [Feosol] 325 mg PO DAILY 01/19/19 02/02/19 Lisinopril [Zestril] 5 mg PO DAILY 01/19/19 02/02/19 Previous Rx's Medication Instructions Recorded Metoprolol Succinate [Toprol Xl] 50 mg PO DAILY #90 tab.er.24h 10/31/17 Acetaminophen Tab [Tylenol] 650 mg PO Q6HR PRN tab 11/01/17 Allergies Allergy/AdvReac Type Severity Reaction Status Date / Time Iodinated Contrast Media Allergy Severe THROAT Verified 03/25/19 14:26 [Iodinated Contrast Media - SWELLING Oral and] iodine Allergy Severe THROAT Verified 03/25/19 14:26 SWELLING, RASH shellfish derived Allergy Severe THROAT Verified 03/25/19 14:26 SWELLING, RASH cefazolin sodium Allergy Dyspnea Verified 03/25/19 14:26 [From Kefzol] Latex, Natural Rubber Allergy Rash/Hives Verified 03/25/19 14:26 levofloxacin [From Levaquin] Allergy Rash/Hives Verified 03/25/19 14:26 piperacillin sodium Allergy THROAT Verified 03/25/19 14:26 [From Zosyn] SWELL, RASH tazobactam sodium Allergy THROAT Verified 03/25/19 14:26 [From Zosyn] SWELL, RASH verapamil AdvReac Severe Hallucinati Verified 03/25/19 14:26 ons seafood Allergy Severe throat Uncoded 03/25/19 14:26 swelling Review of Systems ROS Statement: Those systems with pertinent positive or pertinent negative responses have been documented in the HPI. ROS Other: All systems not noted in ROS Statement are negative. Past Medical History Past Medical History: Atrial Fibrillation, Heart Failure, Diabetes Mellitus, Eye Disorder, Hyperlipidemia, Osteoarthritis (OA), Pneumonia, Skin Disorder, Vascular Disorder Additional Past Medical History / Comment(s): Chronic Venous Stasis BLE w/ chronic ulceration of the left lower extremity, current small area still left leg, CAD W/ coronary stenting Rt PDA 2013. History of kidney stones. Pacemaker, ST DAPH[employer]. HAS CATARACT LT. WOUNDS LLE, USING SILVADENE CREAM. EDEMA BLE. seeing Dr Calderon r/t kidney function. Small wound LLE. History of Any Multi-Drug Resistant Organisms: None Reported Past Surgical History: Cardiac Ablation, Heart Catheterization, Heart Catheterization With Stent, Hysterectomy, Pacemaker, Tubal Ligation Additional Past Surgical History / Comment(s): states has had mult sx on veins left leg, AUST[place] with cardioversion, varicose vein stripping, one cardiac stent, rt cataract, kidney stone sx, LLE surgery with stent and skin grafting. Past Anesthesia/Blood Transfusion Reactions: No Reported Reaction Additional Past Anesthesia/Blood Transfusion Reaction / Comment(s): PONV 40 PLUS YEARS AGO, AFTER REMOVAL KIDNEY STONE. Date of Last Stent Placement:: November 2013 Type of Cardiac Device: Permanent Pacemaker Device Placement Date:: 10/30/2017 Past Psychological History: No Psychological Hx Reported Smoking Status: Never smoker Past Alcohol Use History: None Reported Past Drug Use History: None Reported - Past Family History Father History Unknown: Yes Family Medical History: No Reported History Additional Family Medical History / Comment(s): . Mother Family Medical History: Cancer Additional Family Medical History / Comment(s): bladder General Exam - General Exam Comments Initial Comments: GENERAL: Patient is well-developed and well-nourished. Patient is nontoxic and well- hydrated and is in mild distress. ENT: Neck is soft and supple. No significant lymphadenopathy is noted. Oropharynx is clear. Moist mucous membranes. Neck has full range of motion without eliciting any pain. EYES: The sclera were anicteric and conjunctiva were pink and moist. Extraocular movements were intact and pupils were equal round and reactive to light. Eyelids were unremarkable. PULMONARY: Unlabored respirations. Good breath sounds bilaterally. No audible rales rhonchi or wheezing was noted. CARDIOVASCULAR: There is a regular rate and rhythm without any murmurs gallops or rubs. ABDOMEN: Soft and nontender with normal bowel sounds. No palpable organomegaly was noted. There is no palpable pulsatile mass. SKIN: Skin is clear with no lesions or rashes and otherwise unremarkable. NEUROLOGIC: Patient is alert and oriented x3. Cranial nerves II through XII are grossly intact. Motor and sensory are also intact. Normal speech, volume and content. Symmetrical smile. MUSCULOSKELETAL: Normal extremities with adequate strength and full range of motion. LYMPHATICS: No significant lymphadenopathy is noted PSYCHIATRIC: Normal psychiatric evaluation. Limitations: no limitations Course Vital Signs 03/25/19 03/25/19 14:21 16:00 Temperature 97.4 F L Pulse Rate 60 60 Respiratory 18 17 Rate Blood Pressure 127/58 126/60 O2 Sat by Pulse 98 94 L Oximetry Medical Decision Making - Medical Decision Making EKG shows a paced rhythm at 60 bpm QRS is 150 QT intervals 462 QTC is 462. Chest x-ray shows no acute abnormalities. I gave the patient Zofran and she was feeling considerably better when I went back into reevaluate. Patient also had no more chest pain when I went back into reevaluate her. I did not start the patient on any blood thinners because of the elevated troponin because the patient was no longer having chest pain and she was already on a blood thinner. Spoke with Dr. Juarez he agreed to admit the patient admitted the patient I consult to cardiology. - Lab Data Result diagrams: 03/25/19 15:24 03/25/19 15:24 Lab Results 03/25/19 03/25/19 03/25/19 Range/Units 15:24 15:24 15:24 WBC 8.4 (3.8-10.6) k/uL RBC 4.10 (3.80-5.40) m/uL Hgb 11.3 L (11.4-16.0) gm/dL Hct 35.8 (34.0-46.0) % MCV 87.4 (80.0-100.0) fL MCH 27.5 (25.0-35.0) pg MCHC 31.4 (31.0-37.0) g/dL RDW 16.2 H (11.5-15.5) % Plt Count 284 (150-450) k/uL Neutrophils % 80 % Lymphocytes % 12 % Monocytes % 5 % Eosinophils % 1 % Basophils % 0 % Neutrophils # 6.7 (1.3-7.7) k/uL Lymphocytes # 1.0 (1.0-4.8) k/uL Monocytes # 0.4 (0-1.0) k/uL Eosinophils # 0.1 (0-0.7) k/uL Basophils # 0.0 (0-0.2) k/uL Anisocytosis Slight PT (9.0-12.0) sec INR (<1.2) APTT (22.0-30.0) sec Sodium 143 (137-145) mmol/L Potassium 5.5 H (3.5-5.1) mmol/L Chloride 107 (98-107) mmol/L Carbon Dioxide 23 (22-30) mmol/L Anion Gap 13 mmol/L BUN 43 H (7-17) mg/dL Creatinine 1.36 H (0.52-1.04) mg/dL Est GFR (CKD-EPI)AfAm 47 (>60 ml/min/1.73 sqM) Est GFR (CKD-EPI)NonAf 41 (>60 ml/min/1.73 sqM) Glucose 222 H (74-99) mg/dL Calcium 9.8 (8.4-10.2) mg/dL Magnesium 1.6 (1.6-2.3) mg/dL Total Bilirubin 0.6 (0.2-1.3) mg/dL AST 23 (14-36) U/L ALT 17 (9-52) U/L Alkaline Phosphatase 67 (38-126) U/L Troponin I (0.000-0.034) ng/mL NT-Pro-B Natriuret Pep 7290 pg/mL Total Protein 7.4 (6.3-8.2) g/dL Albumin 4.5 (3.5-5.0) g/dL 03/25/19 03/25/19 Range/Units 15:24 15:24 WBC (3.8-10.6) k/uL RBC (3.80-5.40) m/uL Hgb (11.4-16.0) gm/dL Hct (34.0-46.0) % MCV (80.0-100.0) fL MCH (25.0-35.0) pg MCHC (31.0-37.0) g/dL RDW (11.5-15.5) % Plt Count (150-450) k/uL Neutrophils % % Lymphocytes % % Monocytes % % Eosinophils % % Basophils % % Neutrophils # (1.3-7.7) k/uL Lymphocytes # (1.0-4.8) k/uL Monocytes # (0-1.0) k/uL Eosinophils # (0-0.7) k/uL Basophils # (0-0.2) k/uL Anisocytosis PT 11.3 (9.0-12.0) sec INR 1.1 (<1.2) APTT 22.9 (22.0-30.0) sec Sodium (137-145) mmol/L Potassium (3.5-5.1) mmol/L Chloride (98-107) mmol/L Carbon Dioxide (22-30) mmol/L Anion Gap mmol/L BUN (7-17) mg/dL Creatinine (0.52-1.04) mg/dL Est GFR (CKD-EPI)AfAm (>60 ml/min/1.73 sqM) Est GFR (CKD-EPI)NonAf (>60 ml/min/1.73 sqM) Glucose (74-99) mg/dL Calcium (8.4-10.2) mg/dL Magnesium (1.6-2.3) mg/dL Total Bilirubin (0.2-1.3) mg/dL AST (14-36) U/L ALT (9-52) U/L Alkaline Phosphatase (38-126) U/L Troponin I 0.599 H* (0.000-0.034) ng/mL NT-Pro-B Natriuret Pep pg/mL Total Protein (6.3-8.2) g/dL Albumin (3.5-5.0) g/dL Disposition Clinical Impression: Gastroenteritis Disposition: ADMITTED IP TO THIS HOSP Referrals: Edgardo Juarez MD [Primary Care Provider] - 1-2 days Time of Disposition: 16:37
[2019-03-25 15:48] LABS: INR 1.1 (<1.2); Partial Thromboplastin Time 22.9 sec (22.0-30.0); Prothrombin Time 11.3 sec (9.0-12.0)
--- NOTE | 2019-03-25 15:56 | XR ---
EXAMINATION TYPE: XR chest 2V DATE OF EXAM: 03/25/2019 COMPARISON: 01/01/2019 HISTORY: Chest pain, shortness of breath and dysrhythmia TECHNIQUE: Frontal and lateral views of the chest are obtained. FINDINGS: There is no focal air space opacity, pleural effusion, or pneumothorax seen. No pulmonary vascular congestion seen. The cardiac silhouette size is enlarged as seen on the prior with dual hilary d left-sided cardiac device. Flattening of the diaphragms on the lateral view suggests underlying MECHANICAL HANDYMAN D. The osseous structures are intact. There is diffuse osseous demineralization with moderate degener ative changes of the thoracic spine. IMPRESSION: Cardiomegaly as seen on the prior. No pleural effusions or pulmonary vascular congestion of decompensated congestive heart failure. Flattening of the diaphragm suggests underlying COPD.
[2019-03-25] MEDS ORDERED: NITROGLYCERIN SL TABS 0.4 MG TAB SUBLINGUAL PRN (16:37)
[2019-03-25] MEDS ORDERED: ASPIRIN 81 MG PO STA (16:37)
[2019-03-25 18:14] LABS: Glucose,Whole Blood 189 mg/dL (75-99)
[2019-03-25] MEDS ORDERED: ACETAMINOPHEN TAB 325 MG TAB PO PRN (19:53)
[2019-03-25] MEDS ORDERED: CALCITRIOL 0.25 MCG CAP PO SCH (20:00)
[2019-03-25] MEDS ORDERED: MAGNESIUM SULFATE-D5W PMX 1 GM in DEXTROSE/WATER 1 100ML.BAG IVPB ONE (20:01)
[2019-03-25] MEDS: metFORMIN 850 MG TAB PO SCH (20:30)
[2019-03-25 20:31] LABS: Glucose,Whole Blood 153 mg/dL (75-99)
[2019-03-25] MEDS: INSULIN ASPART (NovoLOG) 100 UNIT/ML VIAL SQ SCH (20:34)
[2019-03-25] MEDS: FUROSEMIDE 40 MG TAB PO SCH (20:35)
[2019-03-25] MEDS: NITROGLYCERIN OINT 1 INCH/GM PACKET TOPICAL SCH (20:35)
[2019-03-25] MEDS: ATORVASTATIN 40 MG TAB PO SCH (20:35)
[2019-03-25] MEDS: INSULIN DETEMIR (LEVEMIR) 100 UNIT/ML SYR SQ SCH (21:42)
[2019-03-25 22:22] LABS: Creatine Kinase MB 2.5 ng/mL (0.0-2.4)
[2019-03-25 22:24] LABS: Troponin I 0.737 ng/mL (0.000-0.034)
[2019-03-26] MEDS: NITROGLYCERIN OINT 1 INCH/GM PACKET TOPICAL SCH ×2 (00:54→06:30)
[2019-03-26] MEDS: ONDANSETRON 4 MG/2 ML VIAL IVP PRN ×2 (01:58→09:52)
[2019-03-26 02:33] LABS: Anisocytosis Slight; Basophils # (A) 0.1 k/uL (0-0.2); Basophils % (A) 1 %; Eosinophils # (A) 0.1 k/uL (0-0.7); Eosinophils % (A) 1 %; HGB 10.9 gm/dL (11.4-16.0); Lymphocytes # (A) 1.9 k/uL (1.0-4.8); Lymphocytes % (A) 22 %; MCHC 32.1 g/dL (31.0-37.0); MCV 87.2 fL (80.0-100.0); Monocytes # (A) 0.5 k/uL (0-1.0); Monocytes % (A) 6 %; Neutrophils % (A) 69 %; Platelet Count 294 k/uL (150-450); RDW 16.3 % (11.5-15.5); WBC 8.8 k/uL (3.8-10.6)
[2019-03-26 02:54] LABS: Calcium 9.3 mg/dL (8.4-10.2); Potassium 4.6 mmol/L (3.5-5.1)
[2019-03-26 03:25] LABS: Creatine Kinase MB 2.3 ng/mL (0.0-2.4)
[2019-03-26 03:33] LABS: Troponin I 0.56 ng/mL (0.000-0.034)
[2019-03-26 06:20] LABS: Glucose,Whole Blood 131 mg/dL (75-99)
[2019-03-26] MEDS: INSULIN ASPART (NovoLOG) 100 UNIT/ML VIAL SQ SCH ×4 (06:30→20:52)
[2019-03-26] MEDS: metFORMIN 850 MG TAB PO SCH ×3 (06:30→17:33)
[2019-03-26] MEDS: LISINOPRIL 5 MG TAB PO SCH (08:11)
[2019-03-26] MEDS: ALLOPURINOL 100 MG TAB PO SCH (08:11)
[2019-03-26] MEDS: ASPIRIN 81 MG PO SCH (08:12)
[2019-03-26] MEDS: METOPROLOL TARTRATE 50 MG TAB PO SCH (08:12)
[2019-03-26] MEDS: EDOXABAN TOSYLATE 60 MG TABLET PO SCH (08:12)
[2019-03-26] MEDS: FERROUS SULFATE 325 MG TAB PO SCH (08:12)
[2019-03-26] MEDS: FUROSEMIDE 40 MG TAB PO SCH (08:12)
[2019-03-26] MEDS ORDERED: ASPIRIN 325 MG TAB PO SCH (09:00)
--- NOTE | 2019-03-26 09:21 | P.HPIM ---
History of Present Illness 68-year-old female was sent to the emergency room per family physician with complaints of frequent vomiting and diarrhea. Started yesterday morning. Patient developed chest pain. Patient has a history of persistent atrial fibrillation. Heart failure diastolic dysfunction pulmonary hypertension diabetes type 2 hyperlipidemia patient has renal failure chronic also has a pacemaker Review of Systems Constitutional: Reports fatigue, Reports weakness Cardiovascular: Reports chest pain Gastrointestinal: Reports diarrhea, Reports nausea, Reports vomiting Past Medical History Past Medical History: Atrial Fibrillation, Heart Failure, Diabetes Mellitus, Eye Disorder, Hyperlipidemia, Osteoarthritis (OA), Pneumonia, Skin Disorder, Vascular Disorder Additional Past Medical History / Comment(s): Chronic Venous Stasis BLE w/ chronic ulceration of the left lower extremity, current small area still left leg, CAD W/ coronary stenting Rt PDA 2013. History of kidney stones. ST DAPHNE Samuels. HAS CATARACT LT. WOUNDS LLE, USING SILVADENE CREAM. EDEMA BLE. seeing Dr Calderon r/t kidney function. Small wound LLE. History of Any Multi-Drug Resistant Organisms: None Reported Past Surgical History: Cardiac Ablation, Heart Catheterization, Heart Catheterization With Stent, Hysterectomy, Pacemaker, Tubal Ligation Additional Past Surgical History / Comment(s): states has had mult sx on veins left leg, [place] with cardioversion, varicose vein stripping, one cardiac stent, rt cataract, kidney stone sx, LLE surgery with stent and skin grafting. Past Anesthesia/Blood Transfusion Reactions: No Reported Reaction Additional Past Anesthesia/Blood Transfusion Reaction / Comment(s): PONV 40 PLUS YEARS AGO, AFTER REMOVAL KIDNEY STONE. Date of Last Stent Placement:: November 2013 Type of Cardiac Device: Permanent Pacemaker Device Placement Date:: 10/30/2017 Past Psychological History: No Psychological Hx Reported Additional Psychological History / Comment(s): . Smoking Status: Never smoker Past Alcohol Use History: None Reported Additional Past Alcohol Use History / Comment(s): . Past Drug Use History: None Reported - Past Family History Father History Unknown: Yes Family Medical History: No Reported History Additional Family Medical History / Comment(s): . Mother Family Medical History: Cancer Additional Family Medical History / Comment(s): bladder Medications and Allergies Home Medications Medication Instructions Recorded Confirmed Type Aspirin EC [Ecotrin Low Dose] 81 mg PO DAILY 02/27/14 03/25/19 History Edoxaban Tosylate [Savaysa] 60 mg PO DAILY 07/20/16 03/25/19 History Atorvastatin [Lipitor] 40 mg PO HS 10/22/17 03/25/19 History metFORMIN HCL [Glucophage] 850 mg PO TID 10/30/17 03/25/19 History Acetaminophen Tab [Tylenol] 650 mg PO Q6HR PRN tab 11/01/17 03/25/19 Rx Insulin Glargine,Hum.rec.anlog 34 units SQ HS 12/16/17 03/25/19 History [Dorothy Solwilda] Liraglutide [Victoza 2-Ishan] 1.8 mg SQ DAILY 12/16/17 03/25/19 History Furosemide [Lasix] 40 mg PO TID 06/04/18 03/25/19 History Ferrous Sulfate [Feosol] 325 mg PO DAILY 01/19/19 03/25/19 History Lisinopril [Zestril] 5 mg PO DAILY 01/19/19 03/25/19 History Allopurinol [Zyloprim] 100 mg PO DAILY 03/25/19 03/25/19 History Calcitriol 0.25 mcg PO WE 03/25/19 03/25/19 History Metoprolol Tartrate [Lopressor] 50 mg PO DAILY 03/25/19 03/25/19 History Allergies Allergy/AdvReac Type Severity Reaction Status Date / Time Iodinated Contrast Media Allergy Severe THROAT Verified 03/25/19 16:58 [Iodinated Contrast Media - SWELLING Oral and] iodine Allergy Severe THROAT Verified 03/25/19 16:58 SWELLING, RASH shellfish derived Allergy Severe THROAT Verified 03/25/19 16:58 SWELLING, RASH cefazolin sodium Allergy Dyspnea Verified 03/25/19 16:58 [From Kefzol] Latex, Natural Rubber Allergy Rash/Hives Verified 03/25/19 16:58 levofloxacin [From Levaquin] Allergy Rash/Hives Verified 03/25/19 16:58 piperacillin sodium Allergy THROAT Verified 03/25/19 16:58 [From Zosyn] SWELL, RASH tazobactam sodium Allergy THROAT Verified 03/25/19 16:58 [From Zosyn] SWELL, RASH verapamil AdvReac Severe Hallucinati Verified 03/25/19 16:58 ons seafood Allergy Severe throat Uncoded 03/25/19 14:26 swelling Physical Exam Vitals: Vital Signs Temp Pulse Pulse Resp BP BP Pulse Ox 03/26/19 07:50 60 20 03/26/19 07:46 98.8 F 60 20 133/65 95 03/26/19 04:00 98.3 F 60 18 118/70 96 03/26/19 03:49 61 18 03/25/19 23:39 98.3 F 61 18 144/78 97 03/25/19 20:20 60 18 03/25/19 20:10 98.2 F 60 18 119/59 95 03/25/19 18:12 98.5 F 60 18 132/62 97 03/25/19 16:56 60 20 127/66 95 03/25/19 16:00 60 17 126/60 94 L 03/25/19 14:21 97.4 F L 60 18 127/58 98 Intake and Output 03/25/19 03/26/19 03/26/19 22:59 06:59 14:59 Intake Total 540 Output Total 51 Balance -51 540 Intake: Oral 540 Output: Urine 1 Emesis 50 Other: Voiding Method Toilet # Voids 1 Weight 116.2 kg 116.2 kg - Constitutional General appearance: mild distress - EENT Eyes: PERRLA Ears: bilateral: normal - Neck Neck: normal ROM - Respiratory Respiratory: bilateral: CTA - Cardiovascular Rhythm: regular - Gastrointestinal General gastrointestinal: normal bowel sounds, soft - Integumentary Integumentary: normal - Neurologic Neurologic: CNII-XII intact - Musculoskeletal Musculoskeletal: generalized weakness - Psychiatric Psychiatric: A&O x's 3, appropriate affect, intact judgment & insight Results CBC & Chem 7: 03/26/19 02:06 03/26/19 02:06 Labs: Abnormal Lab Results - Last 24 Hours (Table) 03/25/19 03/25/19 03/25/19 Range/Units 15:24 15:24 15:24 Hgb 11.3 L (11.4-16.0) gm/dL RDW 16.2 H (11.5-15.5) % Potassium 5.5 H (3.5-5.1) mmol/L BUN 43 H (7-17) mg/dL Creatinine 1.36 H (0.52-1.04) mg/dL Glucose 222 H (74-99) mg/dL POC Glucose (mg/dL) (75-99) mg/dL CK-MB (CK-2) (0.0-2.4) ng/mL Troponin I 0.599 H* (0.000-0.034) ng/mL Triglycerides (<150) mg/dL HDL Cholesterol (40-60) mg/dL 03/25/19 03/25/19 03/25/19 Range/Units 17:33 20:30 21:14 Hgb (11.4-16.0) gm/dL RDW (11.5-15.5) % Potassium (3.5-5.1) mmol/L BUN (7-17) mg/dL Creatinine (0.52-1.04) mg/dL Glucose (74-99) mg/dL POC Glucose (mg/dL) 189 H 153 H (75-99) mg/dL CK-MB (CK-2) 2.5 H (0.0-2.4) ng/mL Troponin I 0.737 H* (0.000-0.034) ng/mL Triglycerides (<150) mg/dL HDL Cholesterol (40-60) mg/dL 03/26/19 03/26/19 03/26/19 Range/Units 02:06 02:06 02:06 Hgb 10.9 L (11.4-16.0) gm/dL RDW 16.3 H (11.5-15.5) % Potassium (3.5-5.1) mmol/L BUN 44 H (7-17) mg/dL Creatinine 1.41 H (0.52-1.04) mg/dL Glucose 175 H (74-99) mg/dL POC Glucose (mg/dL) (75-99) mg/dL CK-MB (CK-2) (0.0-2.4) ng/mL Troponin I 0.560 H* (0.000-0.034) ng/mL Triglycerides 283 H (<150) mg/dL HDL Cholesterol 36 L (40-60) mg/dL 03/26/19 Range/Units 06:18 Hgb (11.4-16.0) gm/dL RDW (11.5-15.5) % Potassium (3.5-5.1) mmol/L BUN (7-17) mg/dL Creatinine (0.52-1.04) mg/dL Glucose (74-99) mg/dL POC Glucose (mg/dL) 131 H (75-99) mg/dL CK-MB (CK-2) (0.0-2.4) ng/mL Troponin I (0.000-0.034) ng/mL Triglycerides (<150) mg/dL HDL Cholesterol (40-60) mg/dL Chest x-ray: report reviewed (EKG 100% paced) Thrombosis Risk Factor Assmnt - Choose All That Apply Each Risk Factor Represents 2 Points: Age 61-74 years Thrombosis Risk Factor Assessment Total Risk Factor Score: 2 Thrombosis Risk Factor Assessment Level: Low Risk Assessment and Plan Assessment: Assessment Gastroenteritis with vomiting and diarrhea Chest pain with elevated troponins History of chronic persistent atrial fibrillation Chronic Heart failure with diastolic failure pulmonary hypertension Diabetes type 2 Hyperlipidemia Venous stasis Coronary artery disease with stents Pacemaker Chronic renal failure stage III Plan Continue consultation with cardiology
--- NOTE | 2019-03-26 09:30 | P.CRDCN ---
History of Present Illness Consult date: 03/26/19 Requesting physician: Edgardo Juarez Reason for Consult (text): Abnormal troponins Chief complaint: Vomiting and diarrhea History of present illness: This is a pleasant 68-year-old female who follows regularly with Dr. Ralph in the office. She has known history of persistent atrial fibrillation, history of prior pacemaker implantation, hyperlipidemia, peripheral vascular disease, hypertension, diabetes, coronary artery disease with prior stenting of the mid PDA in 2013, most recently the patient underwent a cardiac catheterization in January of this year which revealed evidence of pulmonary hypertension, calcified coronary arteries, mild to moderate disease involving the LAD and the right coronary artery, no evidence of restenosis at the site of prior stenting. Following that the patient was referred to protein specialist for evaluation of pulmonary hypertension. She does state that she had several tests performed in the office by Dr. Beard. She presents to the hospital on this occasion with symptoms of multiple episodes of vomiting, and associated diarrhea. Troponins were drawn in the emergency room and came back to be slightly abnormal and for this reason a cardiology consult was requested. EKG on presentation here showed atrial fibrillation with a controlled ventricular response. Chest x-ray on presentation here showed cardiomegaly, no pleural e ffusions, no pulmonary vascular congestion. Flattening of the diaphragms suggest underlying COPD. Blood pressure 132/60 with a heart rate of 60, 95% on room air. White blood cell count 8.8, hemoglobin 10.9, platelet count 294. Sodium 143 on admission with a potassium of 5.5, BUN 43 and creatinine 1.3. This morning sodium 141, potassium 4.6, BUN 44 and creatinine 1.4. BNP level 7290. Troponin 0.59, 0.73, 0.56. At the time of my examination this morning, patient denies any chest pain, breathing is similar to her usual according to her. She did have 2 more episodes of vomiting through the night last night. Past Medical History Past Medical History: Atrial Fibrillation, Heart Failure, Diabetes Mellitus, Eye Disorder, Hyperlipidemia, Osteoarthritis (OA), Pneumonia, Skin Disorder, Vascular Disorder Additional Past Medical History / Comment(s): Chronic Venous Stasis BLE w/ chronic ulceration of the left lower extremity, current small area still left leg, CAD W/ coronary stenting Rt PDA 2013. History of kidney stones. Pacemaker, [facility] DAPH[facility]. HAS CATARACT LT. WOUNDS LLE, USING SILVADENE CREAM. EDEMA BLE. seeing Dr Calderon r/t kidney function. Small wound LLE. History of Any Multi-Drug Resistant Organisms: None Reported Past Surgical History: Cardiac Ablation, Heart Catheterization, Heart Catheterization With Stent, Hysterectomy, Pacemaker, Tubal Ligation Additional Past Surgical History / Comment(s): states has had mult sx on veins left leg, [place] with cardioversion, varicose vein stripping, one cardiac stent, rt cataract, kidney stone sx, LLE surgery with stent and skin grafting. Past Anesthesia/Blood Transfusion Reactions: No Reported Reaction Additional Past Anesthesia/Blood Transfusion Reaction / Comment(s): PONV 40 PLUS YEARS AGO, AFTER REMOVAL KIDNEY STONE. Date of Last Stent Placement:: November 2013 Type of Cardiac Device: Permanent Pacemaker Device Placement Date:: 10/30/2017 Past Psychological History: No Psychological Hx Reported Additional Psychological History / Comment(s): . Smoking Status: Never smoker Past Alcohol Use History: None Reported Additional Past Alcohol Use History / Comment(s): . Past Drug Use History: None Reported - Past Family History Father History Unknown: Yes Family Medical History: No Reported History Additional Family Medical History / Comment(s): . Mother Family Medical History: Cancer Additional Family Medical History / Comment(s): bladder Medications and Allergies Home Medications Medication Instructions Recorded Confirmed Type Aspirin EC [Ecotrin Low Dose] 81 mg PO DAILY 02/27/14 03/25/19 History Edoxaban Tosylate [Savaysa] 60 mg PO DAILY 07/20/16 03/25/19 History Atorvastatin [Lipitor] 40 mg PO HS 10/22/17 03/25/19 History metFORMIN HCL [Glucophage] 850 mg PO TID 10/30/17 03/25/19 History Acetaminophen Tab [Tylenol] 650 mg PO Q6HR PRN tab 11/01/17 03/25/19 Rx Insulin Glargine,Hum.rec.anlog 34 units SQ HS 12/16/17 03/25/19 History [Toujeo Solostar] Liraglutide [Victoza 2-Ishan] 1.8 mg SQ DAILY 12/16/17 03/25/19 History Furosemide [Lasix] 40 mg PO TID 06/04/18 03/25/19 History Ferrous Sulfate [Feosol] 325 mg PO DAILY 01/19/19 03/25/19 History Lisinopril [Zestril] 5 mg PO DAILY 01/19/19 03/25/19 History Allopurinol [Zyloprim] 100 mg PO DAILY 03/25/19 03/25/19 History Calcitriol 0.25 mcg PO WE 03/25/19 03/25/19 History Metoprolol Tartrate [Lopressor] 50 mg PO DAILY 03/25/19 03/25/19 History Allergies Allergy/AdvReac Type Severity Reaction Status Date / Time Iodinated Contrast Media Allergy Severe THROAT Verified 03/25/19 16:58 [Iodinated Contrast Media - SWELLING Oral and] iodine Allergy Severe THROAT Verified 03/25/19 16:58 SWELLING, RASH shellfish derived Allergy Severe THROAT Verified 03/25/19 16:58 SWELLING, RASH cefazolin sodium Allergy Dyspnea Verified 03/25/19 16:58 [From Kefzol] Latex, Natural Rubber Allergy Rash/Hives Verified 03/25/19 16:58 levofloxacin [From Levaquin] Allergy Rash/Hives Verified 03/25/19 16:58 piperacillin sodium Allergy THROAT Verified 03/25/19 16:58 [From Zosyn] SWELL, RASH tazobactam sodium Allergy THROAT Verified 03/25/19 16:58 [From Zosyn] SWELL, RASH verapamil AdvReac Severe Hallucinati Verified 03/25/19 16:58 ons seafood Allergy Severe throat Uncoded 03/25/19 14:26 swelling Physical Exam Vitals: Vital Signs Temp Pulse Pulse Resp BP BP Pulse Ox 03/26/19 07:50 60 20 03/26/19 07:46 98.8 F 60 20 133/65 95 03/26/19 04:00 98.3 F 60 18 118/70 96 03/26/19 03:49 61 18 03/25/19 23:39 98.3 F 61 18 144/78 97 03/25/19 20:20 60 18 03/25/19 20:10 98.2 F 60 18 119/59 95 03/25/19 18:12 98.5 F 60 18 132/62 97 03/25/19 16:56 60 20 127/66 95 03/25/19 16:00 60 17 126/60 94 L 03/25/19 14:21 97.4 F L 60 18 127/58 98 Intake and Output 11/03/26/19 03/26/19 22:59 06:59 14:59 Intake Total 540 Output Total 51 Balance -51 540 Intake: Oral 540 Output: Urine 1 Emesis 50 Other: Voiding Method Toilet # Voids 1 Weight 116.2 kg 116.2 kg PHYSICAL EXAMINATION: GENERAL: 68-year-old female in no acute distress at the time of my ex amination HEENT: Head is atraumatic, normocephalic. Pupils equal, round. Sclera anicteric. Conjunctiva are clear. Mucous membranes of the mouth are moist. Neck is supple. There is no elevated jugular venous pressure. No Carotid bruit is heard. HEART EXAMINATION: Heart S1 and S2 irregularly irregular a II/IV systolic ejection murmur is heard at the base, II/IV holosystolic murmur heard at the apex CHEST EXAMINATION: Lungs are clear to auscultation, mild diminished air entry to the bases ABDOMEN: Soft, obese, nontender. Bowel sounds are heard. No organomegaly noted. EXTREMITIES: 2+ peripheral pulses with 1+ evidence of peripheral edema and no calf tenderness noted. Patient does have chronic discoloration of the lower extremities as well as evidence of healed ulcerated area . NEUROLOGIC patient is awake, alert and oriented 3 . . Results 03/26/19 02:06 03/26/19 02:06 Cardiac Enzymes 03/25/19 03/25/19 03/25/19 Range/Units 15:24 15:24 21:14 AST 23 (14-36) U/L CK-MB (CK-2) 2.5 H (0.0-2.4) ng/mL Troponin I 0.599 H* 0.737 H* (0.000-0.034) ng/mL 03/26/19 Range/Units 02:06 AST (14-36) U/L CK-MB (CK-2) 2.3 (0.0-2.4) ng/mL Troponin I 0.560 H* (0.000-0.034) ng/mL Coagulation 03/25/19 Range/Units 15:24 PT 11.3 (9.0-12.0) sec APTT 22.9 (22.0-30.0) sec Lipids 03/26/19 Range/Units 02:06 Triglycerides 283 H (<150) mg/dL Cholesterol 151 (<200) mg/dL HDL Cholesterol 36 L (40-60) mg/dL CBC 03/25/19 03/26/19 Range/Units 15:24 02:06 WBC 8.4 8.8 (3.8-10.6) k/uL RBC 4.10 3.90 (3.80-5.40) m/uL Hgb 11.3 L 10.9 L (11.4-16.0) gm/dL Hct 35.8 34.0 (34.0-46.0) % Plt Count 284 294 (150-450) k/uL Comprehensive Metabolic Panel 03/25/19 03/26/19 Range/Units 15:24 02:06 Sodium 143 141 (137-145) mmol/L Potassium 5.5 H 4.6 (3.5-5.1) mmol/L Chloride 107 106 (98-107) mmol/L Carbon Dioxide 23 22 (22-30) mmol/L BUN 43 H 44 H (7-17) mg/dL Creatinine 1.36 H 1.41 H (0.52-1.04) mg/dL Glucose 222 H 175 H (74-99) mg/dL Calcium 9.8 9.3 (8.4-10.2) mg/dL AST 23 (14-36) U/L ALT 17 (9-52) U/L Alkaline Phosphatase 67 (38-126) U/L Total Protein 7.4 (6.3-8.2) g/dL Albumin 4.5 (3.5-5.0) g/dL Current Medications Generic Name Dose Route Start Last Admin Trade Name Ericq PRN Reason Stop Dose Admin Acetaminophen 650 mg 03/25/19 19:53 Tylenol Tab PO Q6HR PRN Mild Pain Allopurinol 100 mg 03/26/19 09:00 03/26/19 08:11 Zyloprim PO 100 mg DAILY [facility] Administration Aspirin 81 mg 03/26/19 09:00 03/26/19 08:12 Aspirin PO 81 mg DAILY [facility] Administration Atorvastatin Calcium 40 mg 03/25/19 21:00 03/25/19 20:35 Lipitor PO 40 mg HS [facility] Administration Calcitriol 0.25 mcg 03/25/19 20:00 03/25/19 20:35 Rocaltrol PO Not Given WE [facility] Edoxaban 60 mg 03/26/19 09:00 03/26/19 08:12 Savaysa PO 60 mg DAILY [facility] Administration Ferrous Sulfate 325 mg 03/26/19 09:00 03/26/19 08:12 Feosol PO 325 mg DAILY [facility] Administration Furosemide 40 mg 03/25/19 22:00 03/26/19 08:12 Lasix PO 40 mg TID [facility] Administration Insulin Aspart 0 unit 03/25/19 21:00 03/26/19 06:30 Novolog SQ Not Given ACHS [facility] Protocol Insulin Detemir 34 unit 03/25/19 21:00 03/25/19 21:42 Levemir SQ 34 unit HS [facility] Administration Lisinopril 5 mg 03/26/19 09:00 03/26/19 08:11 Zestril PO 5 mg DAILY [facility] Administration Metformin HCl 850 mg 03/25/19 22:00 03/26/19 06:30 Glucophage PO Not Given AC-TID [facility] Metoprolol Tartrate 50 mg 03/26/19 09:00 03/26/19 08:12 Lopressor PO 50 mg DAILY [facility] Administration Nitroglycerin 0.4 mg 03/25/19 16:37 Nitrostat SUBLINGUAL Q5M PRN Chest Pain Nitroglycerin 1 inch 03/25/19 18:00 03/26/19 06:30 Nitro-Bid Oint TOPICAL Not Given Q6HR [facility] Ondansetron HCl 4 mg 03/25/19 16:40 03/26/19 01:58 Zofran IVP 4 mg Q6HR PRN Administration Nausea And Vomiting Intake and Output 03/25/19 03/26/19 03/26/19 22:59 06:59 14:59 Intake Total 540 Output Total 51 Balance -51 540 Intake: Oral 540 Output: Urine 1 Emesis 50 Other: Voiding Method Toilet # Voids 1 Weight 116.2 kg 116.2 kg 03/26/19 02:06 03/26/19 02:06 EKG Interpretations (text) EKG shows atrial fibrillation with a controlled ventricular response Assessment and Plan Plan: Assessment and plan #1 symptoms of nausea with frequent episodes of vomiting, associated diarrhea #2 abnormal troponins, cannot completely rule out acute coronary syndrome, could be secondary to abnormal renal function and mild congestive heart failure, patient just had a cardiac catheterization performed in January which revealed evidence of pulmonary hypertension. Calcified coronary arteries. Mild to moderate disease in the LAD and RCA with no evidence of restenosis at prior jeremiah nted RCA #3 coronary artery disease with prior stent placement #4 hyperlipidemia #5 Persistent A. fib #6 PVD #7 hypertension #8 pulmonary hypertension #9 diabetes #10 chronic edema #11 moderate mitral regurg and moderate to severe tricuspid regurg with moderate pulmonary hypertension by [place] performed in January #12 congestive heart failure, LV function has been known to be normal in the past, we will obtain an echocardiogram with Doppler study. Plan We will obtain an echocardiogram with Doppler study SHER. We'll also request a repeat chest x-ray be performed this morning. Continue baby aspirin, Lipitor, Savaysa, discontinue the oral Lasix and give the patient IV Lasix, continue metoprolol, discontinue Nitropaste. Further recommendations to follow. DNP note has been reviewed, I agree with a documented findings and plan of care. Patient was seen and examined.
[2019-03-26 09:41] LABS: Amylase 102 U/L (30-110)
[2019-03-26 09:44] LABS: Glucose,Whole Blood 197 mg/dL (75-99)
[2019-03-26] MEDS ORDERED: FUROSEMIDE 10 MG/ML 4 ML VIAL IV STA (10:06)
--- NOTE | 2019-03-26 10:44 | XR ---
EXAMINATION TYPE: XR abdomen 1V DATE OF EXAM: 03/26/2019 COMPARISON: NONE HISTORY: Vomiting TECHNIQUE: One view abdominal series FINDINGS: The osseous structures are intact. The bowel gas pattern is nonspecific. Lung bases are clear. Dege nerative change of the spine. Vascular stents noted on the left. Vascular calcification seen. Arthrop athy of the hips. Cardiac lead incidentally noted. IMPRESSION: 1. Nonspecific abdomen.
--- NOTE | 2019-03-26 10:45 | XR ---
EXAMINATION TYPE: XR chest 1V portable DATE OF EXAM: 03/26/2019 COMPARISON: 03/25/2019 HISTORY: Shortness of breath TECHNIQUE: Single frontal view of the chest is obtained. FINDINGS: There is no focal air space opacity, pleural effusion, or pneumothorax seen. No pulmonary vascular congestion seen. The cardiac silhouette size is enlarged as seen on the prior with dual lead left-sided cardiac device. The osseous structures are intact. There is diffuse osseous demineralizat ion with moderate degenerative changes of the thoracic spine. Chronic rib deformities noted. Atherosc lerotic change aorta. Mild central interstitial prominence. IMPRESSION: Stable cardiomegaly. Mild venous congestion in the differential diagnosis.
[2019-03-26 11:40] LABS: Glucose,Whole Blood 202 mg/dL (75-99)
[2019-03-26 16:56] LABS: Glucose,Whole Blood 148 mg/dL (75-99)
[2019-03-26 20:29] LABS: Glucose,Whole Blood 153 mg/dL (75-99)
[2019-03-26] MEDS: INSULIN DETEMIR (LEVEMIR) 100 UNIT/ML SYR SQ SCH (20:52)
[2019-03-26] MEDS: ATORVASTATIN 40 MG TAB PO SCH (20:52)
[2019-03-27] MEDS: ONDANSETRON 4 MG/2 ML VIAL IVP PRN ×3 (02:41→23:11)
[2019-03-27 06:31] LABS: Glucose,Whole Blood 90 mg/dL (75-99)
[2019-03-27] MEDS: INSULIN ASPART (NovoLOG) 100 UNIT/ML VIAL SQ SCH ×4 (06:39→21:08)
[2019-03-27] MEDS: metFORMIN 850 MG TAB PO SCH ×2 (06:40→08:46)
[2019-03-27 08:08] LABS: Basophils % (A) 0 %; Eosinophils # (A) 0.2 k/uL (0-0.7); Eosinophils % (A) 3 %; HGB 10.6 gm/dL (11.4-16.0); Lymphocytes # (A) 2.3 k/uL (1.0-4.8); Lymphocytes % (A) 29 %; MCH 27.9 pg (25.0-35.0); MCHC 32.2 g/dL (31.0-37.0); MCV 86.9 fL (80.0-100.0); Mean Platelet Volume 6.3; Monocytes # (A) 0.5 k/uL (0-1.0); Monocytes % (A) 7 %; Neutrophils # (A) 4.7 k/uL (1.3-7.7); Neutrophils % (A) 59 %; Platelet Count 287 k/uL (150-450); RDW 15.9 % (11.5-15.5); WBC 7.9 k/uL (3.8-10.6)
[2019-03-27 08:25] LABS: Calcium 9.3 mg/dL (8.4-10.2); Potassium 4.2 mmol/L (3.5-5.1)
[2019-03-27] MEDS: ALLOPURINOL 100 MG TAB PO SCH (08:30)
[2019-03-27] MEDS: METOPROLOL TARTRATE 50 MG TAB PO SCH (08:30)
[2019-03-27] MEDS: ASPIRIN 81 MG PO SCH (08:30)
[2019-03-27] MEDS: EDOXABAN TOSYLATE 60 MG TABLET PO SCH (08:31)
[2019-03-27] MEDS: FERROUS SULFATE 325 MG TAB PO SCH (08:31)
[2019-03-27] MEDS: LISINOPRIL 5 MG TAB PO SCH (08:31)
[2019-03-27 12:18] LABS: Glucose,Whole Blood 98 mg/dL (75-99)
--- NOTE | 2019-03-27 12:29 | P.PN ---
Subjective Progress Note Date: 03/27/19 This is a pleasant 68-year-old female who follows regularly with Dr. Ralph in the office. She has known history of persistent atrial fibrillation, history of prior pacemaker implantation, hyperlipidemia, peripheral vascular disease, hypertension, diabetes, coronary artery disease with prior stenting of the mid PDA in 2013, most recently the patient underwent a cardiac catheterization in January of this year which revealed evidence of pulmonary hypertension, calcified coronary arteries, mild to moderate disease involving the LAD and the right coronary artery, no evidence of restenosis at the site of prior stenting. Following that the patient was referred to community engagement specialist for evaluation of pulmonary hypertension. She does state that she had several tests performed in the office by Dr. Beard. She presents to the hospital on this occasion with symptoms of multiple episodes of vomiting, and associated diarrhea. Troponins were drawn in the emergency room and came back to be slightly abnormal and for this reason a cardiology consult was requested. EKG on presentation here showed atrial fibrillation with a controlled ventricular response. Chest x-ray on presentation here showed cardiomegaly, no pleural effusions, no pulmonary vascular congestion. Flattening of the diaphragms suggest underlying COPD. Blood pressure 132/60 with a heart rate of 60, 95% on room air. White blood cell count 8.8, hemoglobin 10.9, platelet count 294. Sodium 143 on admission with a potassium of 5.5, BUN 43 and creatinine 1.3. This morning sodium 141, potassium 4.6, BUN 44 and creatinine 1.4. BNP level 7290. Troponin 0.59, 0.73, 0.56. At the time of my examination this morning, patient denies any chest pain, breathing is similar to her usual according to her. She did have 2 more episodes of vomiting through the night last night. 03/27/2019 Patient seen and examined this morning, she did have one more episode of vomiting and also a significant bout of diarrhea. Patient also states that she's noticed a significant amount of blood, she is not sure if it's present in her urine or coming from her vagina area. Blood pressure this morning 108/40 with a heart rate of 60, 97% on room air. Blood cell count 7.9, hemoglobin 10.6, platelet count 287. Sodium 140, potassium 4.2, BUN 56 and creatinine 1.9. Objective - Vital Signs Vital signs: Vital Signs Temp 98 F 03/27/19 11:41 Pulse 60 03/27/19 11:41 Resp 18 03/27/19 11:41 BP 107/48 03/27/19 11:41 Pulse Ox 97 03/27/19 11:41 Intake & Output 03/26/19 03/27/19 03/27/19 18:59 06:59 18:59 Intake Total 540 477 Output Total 150 Balance 540 -150 477 Weight 116.3 kg Intake: Oral 540 477 Output: Emesis 150 Other: Voiding Method Toilet Toilet # Voids 3 2 # Bowel Movements 3 - Exam PHYSICAL EXAMINATION: GENERAL: 68-year-old female in no acute distress at the time of my examination HEENT: Head is atraumatic, normocephalic. Pupils equal, round. Sclera anicteric. Conjunctiva are clear. Mucous membranes of the mouth are moist. Neck is supple. There is no elevated jugular venous pressure. No Carotid bruit is heard. HEART EXAMINATION: Heart S1 and S2 irregularly irregular a II/IV systolic ejection murmur is heard at the base, II/IV holosystolic murmur heard at the apex CHEST EXAMINATION: Lungs are clear to auscultation, mild diminished air entry to the bases ABDOMEN: Soft, obese, nontender. Bowel sounds are heard. No organomegaly noted. EXTREMITIES: 2+ peripheral pulses with 1+ evidence of peripheral edema and no calf tenderness noted. Patient does have chronic discoloration of the lower extremities as well as evidence of healed ulcerated area . NEUROLOGIC patient is awake, alert and oriented 3 . - Labs CBC & Chem 7: 03/27/19 07:56 03/27/19 07:56 Labs: Abnormal Lab Results - Last 24 Hours (Table) 03/26/19 03/26/19 03/27/19 Range/Units 16:55 20:28 07:56 Hgb 10.6 L (11.4-16.0) gm/dL Hct 33.0 L (34.0-46.0) % RDW 15.9 H (11.5-15.5) % BUN (7-17) mg/dL Creatinine (0.52-1.04) mg/dL POC Glucose (mg/dL) 148 H 153 H (75-99) mg/dL 03/27/19 Range/Units 07:56 Hgb (11.4-16.0) gm/dL Hct (34.0-46.0) % RDW (11.5-15.5) % BUN 56 H (7-17) mg/dL Creatinine 1.93 H (0.52-1.04) mg/dL POC Glucose (mg/dL) (75-99) mg/dL Assessment and Plan Plan: Assessment and plan #1 symptoms of nausea with frequent episodes of vomiting, associated diarrhea #2 abnormal troponins, cannot completely rule out acute coronary syndrome, could be secondary to abnormal renal function and mild congestive heart failure, p atient just had a cardiac catheterization performed in January which revealed evidence of pulmonary hypertension. Calcified coronary arteries. Mild to moderate disease in the LAD and RCA with no evidence of restenosis at prior stented RCA #3 coronary artery disease with prior stent placement #4 hyperlipidemia #5 Persistent A. fib #6 PVD #7 hypertension #8 pulmonary hypertension #9 diabetes #10 chronic edema #11 moderate mitral regurg and moderate to severe tricuspid regurg with moderate pulmonary hypertension by AUSTIN performed in January #12 congestive heart failure, LV function has been known to be normal in the past, we will obtain an echocardiogram with Doppler study. Plan We will review the echocardiogram with Doppler study. We also recommend further investigation regarding the agents bleeding. At this point in time we will continue with maximum medical therapy. DNP note has been reviewed, I agree with a documented findings and plan of care. Patient was seen and examined.
[2019-03-27 12:40] LABS: Appearance,Urine Bloody (Clear)
[2019-03-27 12:41] LABS: Color,Urine Dark Red
[2019-03-27 12:54] LABS: Bacteria,Urine Rare /hpf; RBC,Urine >182 /hpf (0-5); WBC,Urine >182 /hpf (0-5)
--- NOTE | 2019-03-27 13:00 | ECHOF ---
Referral Reason:abn trop MEASUREMENTS -------- HEIGHT: 167.6 cm WEIGHT: 116.1 kg BP: 133/65 RVIDd: 4.2 cm (< 3.3) IVSd: 1.3 cm (0.6 - 1.1) LVIDd: 3.7 cm (3.9 - 5.3) LVPWd: 1.6 cm (0.6 - 1.1) IVSs: 1.5 cm LVIDs: 3.0 cm LVPWs: 1.8 cm LAESV Index (A-L): 53.26 ml/m Ao Diam: 3.4 cm (2.0 - 3.7) AV Cusp: 2.4 cm (1.5 - 2.6) LA Diam: 4.0 cm (2.7 - 3.8) MV EXCURSION: 12.777 mm (> 18.000) MV EF SLOPE: 33 mm/s (70 - 150) EPSS: 0.9 cm MV E Tenzin: 1.03 m/s MV DecT: 293 ms MV A Tenzin: 0.16 m/s MV E/A Ratio: 6.47 RAP: 5.00 mmHg RVSP: 39.57 mmHg TAPSE: 25.14 mm FINDINGS -------- Pacemaker This was a technically difficult study with suboptimal views. There is mild concentric left ventricular hypertrophy. Overall left ventricular systolic function i s severely impaired with, an EF between 25 - 30 %. Basal Segment Sharon only. The right ventricle is severely enlarged. LA is severely dilated >40 ml/m2 The right atrial size is normal. Lumason used Aortic valve is trileaflet and is mildly thickened. The mitral valve is normal. The mitral valve leaflets are mildly thickened. Mild mitral regurgita tion is present. The tricuspid valve appears structurally normal. Moderate tricuspid regurgitation present. There is mild pulmonary hypertension. The right ventricular systolic pressure, as measured by Doppler, is 39.57mmHg. There is no pulmonic regurgitation present. The aortic root size is normal. IVC Not well visulized. There is no pericardial effusion. CONCLUSIONS -------- 1. Pacemaker 2. This was a technically difficult study with suboptimal views. 3. There is mild concentric left ventricular hypertrophy. 4. Overall left ventricular systolic function is severely impaired with, an EF between 25 - 30 %. 5. Basal Segment Sharon only. 6. The right ventricle is severely enlarged. 7. LA is severely dilated >40 ml/m2 8. The right atrial size is normal. 9. Lumason used 10. Aortic valve is trileaflet and is mildly thickened. 11. The mitral valve is normal. 12. The mitral valve leaflets are mildly thickened. 13. Mild mitral regurgitation is present. 14. The tricuspid valve appears structurally normal. 15. Moderate tricuspid regurgitation present. 16. There is mild pulmonary hypertension. 17. The right ventricular systolic pressure, as measured by Doppler, is 39.57mmHg. 18. There is no pulmonic regurgitation present. 19. The aortic root size is normal. 20. IVC Not well visulized. 21. There is no pericardial effusion. WOOD DOWEL MACHINE OPERATOR: Bria Hoffmann RDCS
[2019-03-27] MEDS: SODIUM CHLORIDE 0.9% 1,000 ML IV SCH (13:19)
[2019-03-27 16:36] LABS: Glucose,Whole Blood 115 mg/dL (75-99)
--- NOTE | 2019-03-27 17:30 | P.PN ---
Subjective Progress Note Date: 03/27/19 Principal diagnosis: Intractable nausea/vomiting/dehydration Acute renal injury Mild elevation of troponin Acute exacerbation CHF Vaginal bleed 68-year-old female w/ atrial fibrillation, history of prior pacemaker implantation, hyperlipidemia, peripheral vascular disease, hypertension, diabetes, coronary artery disease with prior stenting of the mid PDA in 2013, most recently the patient underwent a cardiac catheterization in 01/29 which revealed evidence of pulmonary hypertension, calcified coronary arteries, mild to moderate disease involving the LAD and the right coronary artery, no evidence of restenosis at the site of prior stenting. Following that the patient was referred to product marketing specialist for evaluation of pulmonary hypertension. Patient is admitted with multiple episodes of vomiting, and associated diarrhea. Troponins were drawn in the emergency room and came back to be slightly abnormal and for this reason a cardiology consult was requested. EKG on presentation here showed atrial fibrillation with a controlled ventricular response. Chest x-ray on presentation here showed cardiomegaly, no pleural effusions, no pulmonary vascular congestion. Flattening of the diaphragms suggest underlying COPD. Blood pressure 132/60 with a heart rate of 60, 95% on room air. White blood cell count 8.8, hemoglobin 10.9, platelet count 294. Sodium 143 on admission with a potassium of 5.5, BUN 43 and creatinine 1.3. This morning sodium 141, potassium 4.6, BUN 44 and creatinine 1.4. BNP level 7290. Troponin 0.59, 0.73, 0.56. At the time of my examination this morning, patient denies any chest pain, breathing is similar to her usual according to her. She did have 2 more episodes of vomiting through the night last night. 03/27/2019 Patient seen and examined this morning, she did have one more episode of vomit ing and also a significant bout of diarrhea. Patient also states that she's noticed a significant amount of blood, she is not sure if it's present in her urine or coming from her vagina area. Blood pressure this morning 108/40 with a heart rate of 60, 97% on room air. Blood cell count 7.9, hemoglobin 10.6, platelet count 287. Sodium 140, potassium 4.2, BUN 56 and creatinine 1.9. We will continue current treatment and consult DAYCARE DIRECTOR for recommendations on vaginal bleed and further evaluation if needed Objective - Vital Signs Vital signs: Vital Signs Temp 98 F 03/27/19 11:41 Pulse 60 03/27/19 11:41 Resp 18 03/27/19 11:41 BP 107/48 03/27/19 11:41 Pulse Ox 97 03/27/19 11:41 Intake & Output 03/26/19 03/27/19 03/27/19 18:59 06:59 18:59 Intake Total 540 477 Output Total 150 Balance 540 -150 477 Weight 116.3 kg Intake: Oral 540 477 Output: Emesis 150 Other: Voiding Method Toilet Toilet # Voids 3 2 # Bowel Movements 3 - Exam GENERAL: 68-year-old female in no acute distress at the time of my examination HEENT: Head is atraumatic, normocephalic. Pupils equal, round. Sclera anicteric. Conjunctiva are clear. Mucous membranes of the mouth are moist. Neck is supple. There is no elevated jugular venous pressure. No Carotid bruit is heard. HEART EXAMINATION: Heart S1 and S2 irregularly irregular a II/IV systolic ejection murmur is heard at the base, II/IV holosystolic murmur heard at the apex CHEST EXAMINATION: Lungs are clear to auscultation, mild diminished air entry to the bases ABDOMEN: Soft, obese, nontender. Bowel sounds are heard. No organomegaly noted. EXTREMITIES: 2+ peripheral pulses with 1+ evidence of peripheral edema and no calf tenderness noted. Patient does have chronic discoloration of the lower extremities as well as evidence of healed ulcerated area . NEUROLOGIC patient is awake, alert and oriented 3 . - Labs CBC & Chem 7: 03/27/19 07:56 03/27/19 07:56 Labs: Abnormal Lab Results - Last 24 Hours (Table) 03/26/19 03/26/19 03/27/19 Range/Units 16:55 20:28 07:56 Hgb 10.6 L (11.4-16.0) gm/dL Hct 33.0 L (34.0-46.0) % RDW 15.9 H (11.5-15.5) % BUN (7-17) mg/dL Creatinine (0.52-1.04) mg/dL POC Glucose (mg/dL) 148 H 153 H (75-99) mg/dL 03/27/19 Range/Units 07:56 Hgb (11.4-16.0) gm/dL Hct (34.0-46.0) % RDW (11.5-15.5) % BUN 56 H (7-17) mg/dL Creatinine 1.93 H (0.52-1.04) mg/dL POC Glucose (mg/dL) (75-99) mg/dL Assessment and Plan Assessment: 1. Nausea with frequent episodes of vomiting, associated diarrhea 2. Elevated troponins, cannot completely rule out acute coronary syndrome, could be secondary to abnormal renal function and mild congestive heart failure, patient just had a cardiac catheterization performed in January which revealed evidence of pulmonary hypertension. Calcified coronary arteries. Mild to moderate disease in the LAD and RCA with no evidence of restenosis at prior stented RCA 3. Coronary artery disease with prior stent placement 4. Hyperlipidemia 5. Persistent A. fib 6. Hypertension 7. Pulmonary hypertension 8. Diabetes 9. Moderate mitral regurg and moderate to severe tricuspid regurg with moderate pulmonary hypertension by AUSTIN performed in January 10. Congestive heart failure, LV function has been known to be normal in the past, we will obtain an echocardiogram with Doppler study. Plan Cardiology is following and will review the echocardiogram with Doppler study. We also recommend further investigation regarding the agents bleeding. At this point in time we will continue with maximum medical therapy. DNP note has been reviewed, I agree with a documented findings and plan of care. Patient was seen and examined.
--- NOTE | 2019-03-27 17:49 | P.OBCN ---
History of Present Illness Consult date: 03/27/19 Reason for consult: other (Perineal bleeding) Chief complaint: Bleeding from the perineum History of present illness: This patient is a pleasant 68-year-old 3 para 3 female who is admitted to the hospital approximately 2 days ago for multiple symptoms including vomiting and associated diarrhea. Patient has also had significant cardiac and pulmonary past medical history. I've been counseled to to see this patient because while in the hospital she was noted to have a significant amount of bleeding well up in the shower and on her undergarments. Past gynecologic history significant for a hysterectomy at age 25 for dysfunctional bleeding (benign indication). She is had 3 spontaneous vaginal deliveries. She has not seen a coding director in many years. Patient's evaluation here has included a urinalysis which has greater than 182 red blood cells and greater than 182 white blood cells. She is not had a pelvic or other examination while here. Review of Systems Constitutional: Reports as per HPI Past Medical History Past Medical History: Atrial Fibrillation, Heart Failure, Diabetes Mellitus, Eye Disorder, Hyperlipidemia, Osteoarthritis (OA), Pneumonia, Skin Disorder, Vascular Disorder Additional Past Medical History / Comment(s): Chronic Venous Stasis BLE w/ chronic ulceration of the left lower extremity, current small area still left leg, CAD W/ coronary stenting Rt PDA 2013. History of kidney stones. Pacemaker, ST DAPHNE. HAS CATARACT LT. WOUNDS LLE, USING SILVADENE CREAM. EDEMA BLE. seeing Dr Calderon r/t kidney function. Small wound LLE. History of Any Multi-Drug Resistant Organisms: None Reported Past Surgical History: Cardiac Ablation, Heart Catheterization, Heart Catheterization With Stent, Hysterectomy, Pacemaker, Tubal Ligation Additional Past Surgical History / Comment(s): states has had mult sx on veins left leg, [place] with cardioversion, varicose vein stripping, one cardiac stent, rt cataract, kidney stone sx, LLE surgery with stent and skin grafting. Past Anesthesia/Blood Transfusion Reactions: No Reported Reaction Additional Past Anesthesia/Blood Transfusion Reaction / Comm: PONV 40 PLUS YEARS AGO, AFTER REMOVAL KIDNEY STONE. Date of Last Stent Placement:: November 2013 Type of Cardiac Device: Permanent Pacemaker Device Placement Date:: 10/30/2017 Past Psychological History: No Psychological Hx Reported Additional Psychological History / Comment(s): . Smoking Status: Never smoker Past Alcohol Use History: None Reported Additional Past Alcohol Use History / Comment(s): . Past Drug Use History: None Reported - Past Family History Father History Unknown: Yes Family Medical History: No Reported History Additional Family Medical History / Comment(s): . Mother Family Medical History: Cancer Additional Family Medical History / Comment(s): bladder Medications and Allergies Home Medications Medication Instructions Recorded Confirmed Type Aspirin EC [Ecotrin Low Dose] 81 mg PO DAILY 02/27/14 03/25/19 History Edoxaban Tosylate [Savaysa] 60 mg PO DAILY 07/20/16 03/25/19 History Atorvastatin [Lipitor] 40 mg PO HS 10/22/17 03/25/19 History metFORMIN HCL [Glucophage] 850 mg PO TID 10/30/17 03/25/19 History Acetaminophen Tab [Tylenol] 650 mg PO Q6HR PRN tab 11/01/17 03/25/19 Rx Insulin Glargine,Hum.rec.anlog 34 units SQ HS 12/16/17 03/25/19 History [Dorothy Astorga] Liraglutide [Victoza 2-Ishan] 1.8 mg SQ DAILY 12/16/17 03/25/19 History Furosemide [Lasix] 40 mg PO TID 06/04/18 03/25/19 History Ferrous Sulfate [Feosol] 325 mg PO DAILY 01/19/19 03/25/19 History Lisinopril [Zestril] 5 mg PO DAILY 01/19/19 03/25/19 History Allopurinol [Zyloprim] 100 mg PO DAILY 03/25/19 03/25/19 History Calcitriol 0.25 mcg PO WE 03/25/19 03/25/19 History Metoprolol Tartrate [Lopressor] 50 mg PO DAILY 03/25/19 03/25/19 History Allergies Allergy/AdvReac Type Severity Reaction Status Date / Time Iodinated Contrast Media Allergy Severe THROAT Verified 03/25/19 16:58 [Iodinated Contrast Media - SWELLING Oral and] iodine Allergy Severe THROAT Verified 03/25/19 16:58 SWELLING, RASH shellfish derived Allergy Severe THROAT Verified 03/25/19 16:58 SWELLING, RASH cefazolin sodium Allergy Dyspnea Verified 03/25/19 16:58 [From Kefzol] Latex, Natural Rubber Allergy Rash/Hives Verified 03/25/19 16:58 levofloxacin [From Levaquin] Allergy Rash/Hives Verified 03/25/19 16:58 piperacillin sodium Allergy THROAT Verified 03/25/19 16:58 [From Zosyn] SWELL, RASH tazobactam sodium Allergy THROAT Verified 03/25/19 16:58 [From Zosyn] SWELL, RASH verapamil AdvReac Severe Hallucinati Verified 03/25/19 16:58 ons seafood Allergy Severe throat Uncoded 03/25/19 14:26 swelling Exam Vital Signs Temp Pulse Resp BP Pulse Ox 03/27/19 16:00 98.1 F 94 17 132/75 94 L 03/27/19 14:48 60 18 03/27/19 12:00 60 03/27/19 11:41 98 F 60 18 107/48 97 03/27/19 08:49 60 20 03/27/19 07:51 98 F 60 20 118/53 97 03/27/19 04:08 60 18 03/27/19 04:00 98.3 F 60 16 133/71 96 03/26/19 23:40 98.2 F 60 18 114/86 97 03/26/19 20:50 60 18 133/69 95 Intake and Output 03/27/19 03/27/19 03/27/19 06:59 14:59 22:59 Intake Total 477 Output Total 150 Balance -150 477 Intake: Oral 477 Output: Emesis 150 Other: Voiding Method Toilet # Voids 2 # Bowel Movements 3 Weight 116.3 kg - OBG Physical Exam Vulva: Patient is noted to have multiple varicosities of the perineum. These are benign Vagina: Speculum examination shows no vaginal blood or vaginal lesions, exam is somewhat limited due to the examination been done and the patient's hospital bed. I did place a red Nicole catheter sterilely in the bladder and the urine appeared to be clear yellow. Vagina: atrophic mucosa Cervix: absent Uterus: absent Anus/Rectum: I did do a digital rectal exam and there was no obvious gross blood Results Result Diagrams: 03/27/19 07:56 03/27/19 07:56 Abnormal Lab Results - Last 24 Hours (Table) 03/26/19 03/27/19 03/27/19 Range/Units 20:28 07:56 07:56 Hgb 10.6 L (11.4-16.0) gm/dL Hct 33.0 L (34.0-46.0) % RDW 15.9 H (11.5-15.5) % BUN 56 H (7-17) mg/dL Creatinine 1.93 H (0.52-1.04) mg/dL POC Glucose (mg/dL) 153 H (75-99) mg/dL Urine Appearance (Clear) Urine RBC (0-5) /hpf Urine WBC (0-5) /hpf Urine WBC Clumps (None) /hpf Urine Bacteria (None) /hpf 03/27/19 03/27/19 Range/Units 12:05 16:35 Hgb (11.4-16.0) gm/dL Hct (34.0-46.0) % RDW (11.5-15.5) % BUN (7-17) mg/dL Creatinine (0.52-1.04) mg/dL POC Glucose (mg/dL) 115 H (75-99) mg/dL Urine Appearance Bloody H (Clear) Urine RBC >182 H (0-5) /hpf Urine WBC >182 H (0-5) /hpf Urine WBC Clumps Many H (None) /hpf Urine Bacteria Rare H (None) /hpf Assessment and Plan Assessment: This is a pleasant 68-year-old 3 para 3 female with new onset of perineal bleeding of unknown etiology. Patient's had a hysterectomy in the past and pelvic examination shows no evidence of any vaginal lesions. I did not see any gross hematuria on bladder catheterization or on digital rectal exam. 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 At this time I see no evidence of where the bleeding came from or any active bleeding. My recommendations are to proceed with a urology evaluation as already ordered and also a gastroenterology evaluation to ensure bleeding is not from either of the sources. Consider other imaging including abdominal pelvic CT. I do not think a pelvic ultrasound will be of any value. Thank you very much for this consultation. (1) Female perineal bleeding Current Visit: Yes Status: Acute Code(s): N90.89 - OTH NONINFLAMMATORY DISORDERS OF VULVA AND PERINEUM SNOMED Code(s): 134121115
[2019-03-27 21:07] LABS: Glucose,Whole Blood 161 mg/dL (75-99)
[2019-03-27] MEDS: ATORVASTATIN 40 MG TAB PO SCH (21:08)
[2019-03-27] MEDS: INSULIN DETEMIR (LEVEMIR) 100 UNIT/ML SYR SQ SCH (21:08)
[2019-03-27 21:14] LABS: HCT 32.5 % (34.0-46.0); HGB 10.5 gm/dL (11.4-16.0); Hypochromasia Slight; MCH 28.4 pg (25.0-35.0); MCHC 32.2 g/dL (31.0-37.0); MCV 87.9 fL (80.0-100.0); Mean Platelet Volume 6.2; Platelet Count 268 k/uL (150-450); WBC 8.3 k/uL (3.8-10.6)
[2019-03-28 06:10] LABS: Glucose,Whole Blood 73 mg/dL (75-99)
[2019-03-28 06:26] LABS: Glucose,Whole Blood 96 mg/dL (75-99)
[2019-03-28 06:35] LABS: Basophils % (A) 0 %; Eosinophils # (A) 0.5 k/uL (0-0.7); Eosinophils % (A) 6 %; HGB 10.8 gm/dL (11.4-16.0); Lymphocytes # (A) 2.2 k/uL (1.0-4.8); Lymphocytes % (A) 26 %; MCH 28.6 pg (25.0-35.0); MCHC 32.8 g/dL (31.0-37.0); MCV 87.1 fL (80.0-100.0); Mean Platelet Volume 6.4; Monocytes # (A) 0.6 k/uL (0-1.0); Monocytes % (A) 7 %; Neutrophils # (A) 4.8 k/uL (1.3-7.7); Neutrophils % (A) 57 %; Platelet Count 280 k/uL (150-450); RBC 3.79 m/uL (3.80-5.40); WBC 8.4 k/uL (3.8-10.6)
[2019-03-28] MEDS: INSULIN ASPART (NovoLOG) 100 UNIT/ML VIAL SQ SCH ×4 (06:37→21:00)
[2019-03-28 06:52] LABS: Calcium 9.2 mg/dL (8.4-10.2); Potassium 4.4 mmol/L (3.5-5.1)
[2019-03-28] MEDS: SODIUM CHLORIDE 0.9% 1,000 ML IV SCH (09:12)
[2019-03-28] MEDS: ALLOPURINOL 100 MG TAB PO SCH (09:14)
[2019-03-28] MEDS: LISINOPRIL 5 MG TAB PO SCH (09:14)
[2019-03-28] MEDS: METOPROLOL TARTRATE 50 MG TAB PO SCH (09:15)
[2019-03-28] MEDS: EDOXABAN TOSYLATE 30 MG TABLET PO SCH (09:15)
[2019-03-28] MEDS: ASPIRIN 81 MG PO SCH (09:15)
[2019-03-28] MEDS: FERROUS SULFATE 325 MG TAB PO SCH (09:15)
[2019-03-28 12:04] LABS: Glucose,Whole Blood 158 mg/dL (75-99)
[2019-03-28] MEDS: BARIUM SULFATE 450 ML ORAL.SUSP BOTTLE PO PRN ×2 (14:00→17:12)
--- NOTE | 2019-03-28 14:27 | US ---
EXAMINATION TYPE: US kidneys/renal and bladder DATE OF EXAM: 03/28/2019 COMPARISON: Previous study dated 11/10/2016. CLINICAL HISTORY: Hematuria. Gross hematuria per patient; prior renal stones per patient, diabetic; t otal hysterectomy; scheduled for CT abdomen EXAM MEASUREMENTS: Right Kidney: 11.8 x 7.0 x 5.8 cm Left Kidney: 11.7 x 6.0 x 5.8 cm Post Void Residual Volume: not assessed on inpatient Right Kidney: mid and lower medial pole hyperechoic linear foci with posterior shadowing noted may be shadowing renal stones or vessel wall calcifications. Left Kidney: lateral pole hyperechoic shadowing focus (stone) = 1.0 x 0.5 x 0.3cm ; lobular cortex no tere Bladder: wnl, but not fully distended Bilateral Jets seen: only right jet was seen Calcification within the right kidney may represent arterial calcification or small calculus. Calcification within the left kidney is believed to represent a renal calculus. There is no evidence of stone. ON the right ureteral jet was visualized. IMPRESSION: BILATERAL NEPHROLITHIASIS VERSUS RIGHT ARTERIAL CALCIFICATION.
--- NOTE | 2019-03-28 14:43 | P.PN ---
Subjective Progress Note Date: 03/28/19 This is a pleasant 68-year-old female who follows regularly with Dr. Ralph in the office. She has known history of persistent atrial fibrillation, history of prior pacemaker implantation, hyperlipidemia, peripheral vascular disease, hypertension, diabetes, coronary artery disease with prior stenting of the mid PDA in 2013, most recently the patient underwent a cardiac catheterization in January of this year which revealed evidence of pulmonary hypertension, calcified coronary arteries, mild to moderate disease involving the LAD and the right coronary artery, no evidence of restenosis at the site of prior stenting. Following that the patient was referred to business development specialist for evaluation of pulmonary hypertension. She does state that she had several tests performed in the office by Dr. Beard. She presents to the hospital on this occasion with symptoms of multiple episodes of vomiting, and associated diarrhea. Troponins were drawn in the emergency room and came back to be slightly abnormal and for this reason a cardiology consult was requested. EKG on presentation here showed atrial fibrillation with a controlled ventricular response. Chest x-ray on presentation here showed cardiomegaly, no pleural effusions, no pulmonary vascular congestion. Flattening of the diaphragms suggest underlying COPD. Blood pressure 132/60 with a heart rate of 60, 95% on room air. White blood cell count 8.8, hemoglobin 10.9, platelet count 294. Sodium 143 on admission with a potassium of 5.5, BUN 43 and creatinine 1.3. This morning sodium 141, potassium 4.6, BUN 44 and creatinine 1.4. BNP level 7290. Troponin 0.59, 0.73, 0.56. At the time of my examination this morning, patient denies any chest pain, breathing is similar to her usual according to her. She did have 2 more episodes of vomiting through the night last night. 03/27/2019 Patient seen and examined this morning, she did have one more episode of vomiting and also a significant bout of diarrhea. Patient also states that she's noticed a significant amount of blood, she is not sure if it's present in her urine or coming from her vagina area. Blood pressure this morning 108/40 with a heart rate of 60, 97% on room air. Blood cell count 7.9, hemoglobin 10.6, platelet count 287. Sodium 140, potassium 4.2, BUN 56 and creatinine 1.9. 03/28: Patient has been seen by Dr. Jerome and patient was found to have no evidence of vaginal lesions and no gross hematuria with bladder catheterization nor on digital rectal exam. 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 Urology and GI consults are in place. Repeat hemoglobin is 10.8, BUN 56 and creatinine 1.64. Patient states that she is still having a little bit of blood but not as bad as it was. She denies having any diarrhea. No vomiting. Echocardiogram has been reviewed and shows an EF of 25-30%, mild mitral regurgitation, moderate tricuspid regurgitation, mild pulmonary hypertension. Transesophageal echocardiogram from January 2019 revealed EF of 50-55% with moderate to severe tricuspid regurgitation and mild to moderate pu lmonary hypertension. Patient is concerned that she has not been resumed on her Lasix 40 mg 3 times daily at home which will be resumed today. She denies chest pain and shortness of breath is improving. Objective - Vital Signs Vital signs: Vital Signs Temp 97.7 F 03/28/19 08:00 Pulse 60 03/28/19 08:00 Resp 18 03/28/19 08:00 BP 136/60 03/28/19 08:00 Pulse Ox 97 03/28/19 08:00 Intake & Output 03/27/19 03/28/19 03/28/19 18:59 06:59 18:59 Intake Total 477 360 Balance 477 360 Weight 118.5 kg Intake: Oral 477 360 Other: Voiding Method Toilet Toilet # Voids 1 1 # Bowel Movements 2 0 - Exam GENERAL: 68-year-old female in no acute distress at the time of my examination HEENT: Head is atraumatic, normocephalic. Pupils equal, round. Sclera anicteric. Conjunctiva are clear. Mucous membranes of the mouth are moist. Neck is supple. There is no elevated jugular venous pressure. No Carotid bruit is heard. HEART EXAMINATION: Heart S1 and S2 irregularly irregular a II/IV systolic ejection murmur is heard at the base, II/IV holosystolic murmur heard at the apex CHEST EXAMINATION: Lungs are clear to auscultation, mild diminished air entry to the bases ABDOMEN: Soft, obese, nontender. Bowel sounds are heard. No organomegaly noted. EXTREMITIES: 2+ peripheral pulses with 1+ evidence of peripheral edema and no calf tenderness noted. Patient does have chronic discoloration of the lower extremities as well as evidence of healed ulcerated area . NEUROLOGIC patient is awake, alert and oriented 3 . - Labs CBC & Chem 7: 03/28/19 06:11 03/28/19 06:11 Labs: Abnormal Lab Results - Last 24 Hours (Table) 03/27/19 03/27/19 03/27/19 Range/Units 12:05 16:35 16:36 RBC (3.80-5.40) m/uL Hgb (11.4-16.0) gm/dL Hct (34.0-46.0) % RDW (11.5-15.5) % BUN (7-17) mg/dL Creatinine (0.52-1.04) mg/dL Glucose (74-99) mg/dL POC Glucose (mg/dL) 115 H (75-99) mg/dL Urine Appearance Bloody H (Clear) Stool Occult Blood Positive H (Negative) 03/27/19 03/27/19 03/28/19 Range/Units 20:56 21:06 06:08 RBC 3.70 L (3.80-5.40) m/uL Hgb 10.5 L (11.4-16.0) gm/dL Hct 32.5 L (34.0-46.0) % RDW 16.0 H (11.5-15.5) % BUN (7-17) mg/dL Creatinine (0.52-1.04) mg/dL Glucose (74-99) mg/dL POC Glucose (mg/dL) 161 H 73 L (75-99) mg/dL Urine Appearance (Clear) Stool Occult Blood (Negative) 03/28/19 03/28/19 03/28/19 Range/Units 06:11 06:11 11:49 RBC 3.79 L (3.80-5.40) m/uL Hgb 10.8 L (11.4-16.0) gm/dL Hct 33.0 L (34.0-46.0) % RDW 16.0 H (11.5-15.5) % BUN 56 H (7-17) mg/dL Creatinine 1.64 H (0.52-1.04) mg/dL Glucose 73 L (74-99) mg/dL POC Glucose (mg/dL) 158 H (75-99) mg/dL Urine Appearance (Clear) Stool Occult Blood (Negative) Assessment and Plan Plan: #1 symptoms of nausea with frequent episodes of vomiting, associated diarrhea #2 abnormal troponins, cannot completely rule out acute coronary syndrome, could be secondary to abnormal renal function and mild congestive heart failure, patient just had a cardiac catheterization performed in January which revealed evidence of pulmonary hypertension. Calcified coronary arteries. Mild to moderate disease in the LAD and RCA with no evidence of restenosis at prior stented RCA #3 coronary artery disease with prior stent placement #4 hyperlipidemia #5 Persistent A. fib #6 PVD #7 hypertension #8 pulmonary hypertension #9 diabetes #10 chronic edema #11 moderate mitral regurg and moderate to severe tricuspid regurg with moderate pulmonary hypertension by [place] performed in January #12 congestive heart failure, LV function has been known to be normal in the past, we will obtain an echocardiogram with Doppler study. #13 stress-induced cardiomyopathy. Upon review of echocardiogram, patient found to have significant change in EF since January of this year. Plan Patient will be resumed on Lasix 40 mg 3 times daily.. We also recommend further investigation regarding perineal bleeding. At this point in time we will continue with maximum medical therapy. There is practitioner note has been reviewed, I agree with the documented findings and plan of care. Patient was seen and examined.
--- NOTE | 2019-03-28 15:18 | P.PN ---
Subjective Progress Note Date: 03/28/19 Principal diagnosis: Intractable nausea/vomiting/dehydration Acute renal injury Mild elevation of troponin Acute exacerbation CHF Vaginal bleed 68-year-old female w/ atrial fibrillation, history of prior pacemaker implantation, hyperlipidemia, peripheral vascular disease, hypertension, diabetes, coronary artery disease with prior stenting of the mid PDA in 2013, most recently the patient underwent a cardiac catheterization in 01/29 which revealed evidence of pulmonary hypertension, calcified coronary arteries, mild to moderate disease involving the LAD and the right coronary artery, no evidence of restenosis at the site of prior stenting. Following that the patient was referred to retail merchandising specialist for evaluation of pulmonary hypertension. Patient is admitted with multiple episodes of vomiting, and associated diarrhea. Troponins were drawn in the emergency room and came back to be slightly abnormal and for this reason a cardiology consult was requested. EKG on presentation here showed atrial fibrillation with a controlled ventricular response. Chest x-ray on presentation here showed cardiomegaly, no pleural effusions, no pulmonary vascular congestion. Flattening of the diaphragms suggest underlying COPD. Blood pressure 132/60 with a heart rate of 60, 95% on room air. White blood cell count 8.8, hemoglobin 10.9, platelet count 294. Sodium 143 on admission with a potassium of 5.5, BUN 43 and creatinine 1.3. This morning sodium 141, potassium 4.6, BUN 44 and creatinine 1.4. BNP level 7290. Troponin 0.59, 0.73, 0.56. At the time of my examination this morning, patient denies any chest pain, breathing is similar to her usual according to her. She did have 2 more episodes of vomiting through the night last night. 03/27/2019 Patient seen and examined this morning, she did have one more episode of vomit ing and also a significant bout of diarrhea. Patient also states that she's noticed a significant amount of blood, she is not sure if it's present in her urine or coming from her vagina area. Blood pressure this morning 108/40 with a heart rate of 60, 97% on room air. Blood cell count 7.9, hemoglobin 10.6, platelet count 287. Sodium 140, potassium 4.2, BUN 56 and creatinine 1.9. We will continue current treatment and consult ASSISTANT PROFESSOR OF GERMAN for recommendations on vaginal bleed and further evaluation if needed 03/28/2019 Patient is seen and evaluated at bedside; requesting to be started on home dose of Lasix Vital signs remained stable; labs are reviewed showing a stable hemoglobin at 10.5; B UN/creatinine is improved from her 56/1.9 yesterday down to 56/1.6 this morning; urine and stool occult blood is positive ASSISTANT PROFESSOR OF [employer]ERMAN he has seen patient and recommending CT abdomen and pelvis; urology and GI is consulted for investigation on source of bleeding Objective - Vital Signs Vital signs: Vital Signs Temp 97.7 F 03/28/19 08:00 Pulse 60 03/28/19 08:00 Resp 18 03/28/19 08:00 BP 136/60 03/28/19 08:00 Pulse Ox 97 03/28/19 08:00 Intake & Output 03/27/19 03/28/19 03/28/19 18:59 06:59 18:59 Intake Total 477 240 Balance 477 240 Weight 118.5 kg Intake: Oral 477 240 Other: Voiding Method Toilet Toilet # Voids 1 1 # Bowel Movements 2 - Exam GENERAL: 68-year-old female in no acute distress at the time of my examination HEENT: Head is atraumatic, normocephalic. Pupils equal, round. Sclera anicteric. Conjunctiva are clear. Mucous membranes of the mouth are moist. Neck is supple. There is no elevated jugular venous pressure. No Carotid bruit is heard. HEART EXAMINATION: Heart S1 and S2 irregularly irregular a II/IV systolic ejection murmur is heard at the base, II/IV holosystolic murmur heard at the apex CHEST EXAMINATION: Lungs are clear to auscultation, mild diminished air entry to the bases ABDOMEN: Soft, obese, nontender. Bowel sounds are heard. No organomegaly noted. EXTREMITIES: 2+ peripheral pulses with 1+ evidence of peripheral edema and no calf tenderness noted. Patient does have chronic discoloration of the lower extremities as well as evidence of healed ulcerated area . NEUROLOGIC patient is awake, alert and oriented 3 . - Labs CBC & Chem 7: 03/28/19 06:11 03/28/19 06:11 Labs: Abnormal Lab Results - Last 24 Hours (Table) 03/27/19 03/27/19 03/27/19 Range/Units 12:05 16:35 16:36 RBC (3.80-5.40) m/uL Hgb (11.4-16.0) gm/dL Hct (34.0-46.0) % RDW (11.5-15.5) % BUN (7-17) mg/dL Creatinine (0.52-1.04) mg/dL Glucose (74-99) mg/dL POC Glucose (mg/dL) 115 H (75-99) mg/dL Urine Appearance Bloody H (Clear) Urine RBC >182 H (0-5) /hpf Urine WBC >182 H (0-5) /hpf Urine WBC Clumps Many H (None) /hpf Urine Bacteria Rare H (None) /hpf Stool Occult Blood Positive H (Negative) 03/27/19 03/27/19 03/28/19 Range/Units 20:56 21:06 06:08 RBC 3.70 L (3.80-5.40) m/uL Hgb 10.5 L (11.4-16.0) gm/dL Hct 32.5 L (34.0-46.0) % RDW 16.0 H (11.5-15.5) % BUN (7-17) mg/dL Creatinine (0.52-1.04) mg/dL Glucose (74-99) mg/dL POC Glucose (mg/dL) 161 H 73 L (75-99) mg/dL Urine Appearance (Clear) Urine RBC (0-5) /hpf Urine WBC (0-5) /hpf Urine WBC Clumps (None) /hpf Urine Bacteria (None) /hpf Stool Occult Blood (Negative) 03/28/19 03/28/19 03/28/19 Range/Units 06:11 06:11 11:49 RBC 3.79 L (3.80-5.40) m/uL Hgb 10.8 L (11.4-16.0) gm/dL Hct 33.0 L (34.0-46.0) % RDW 16.0 H (11.5-15.5) % BUN 56 H (7-17) mg/dL Creatinine 1.64 H (0.52-1.04) mg/dL Glucose 73 L (74-99) mg/dL POC Glucose (mg/dL) 158 H (75-99) mg/dL Urine Appearance (Clear) Urine RBC (0-5) /hpf Urine WBC (0-5) /hpf Urine WBC Clumps (None) /hpf Urine Bacteria (None) /hpf Stool Occult Blood (Negative) Assessment and Plan Assessment: 1. Nausea with frequent episodes of vomiting, associated diarrhea 2. Elevated troponins, cannot completely rule out acute coronary syndrome, could be secondary to abnormal renal function and mild congestive heart failure, patient just had a cardiac catheterization performed in January which revealed evidence of pulmonary hypertension. Calcified coronary arteries. Mild to moderate disease in the LAD and RCA with no evidence of restenosis at prior stented RCA 3. Coronary artery disease with prior stent placement 4. Hyperlipidemia 5. Persistent A. fib 6. Hypertension 7. Pulmonary hypertension 8. Diabetes 9. Moderate mitral regurg and moderate to severe tricuspid regurg with moderate pulmonary hypertension by [place] performed in January 10. Congestive heart failure, LV function has been known to be normal in the p ast, we will obtain an echocardiogram with Doppler study. Plan Cardiology is following and will review the echocardiogram with Doppler study. We also recommend further investigation regarding the agents bleeding. At this point in time we will continue with maximum medical therapy. DNP note has been reviewed, I agree with a documented findings and plan of care. Patient was seen and examined. Time with Patient: Greater than 30
[2019-03-28] MEDS ORDERED: FUROSEMIDE 40 MG TAB PO SCH (16:00)
[2019-03-28 17:11] LABS: Glucose,Whole Blood 179 mg/dL (75-99)
[2019-03-28] MEDS: FUROSEMIDE 40 MG TAB PO SCH ×2 (17:12→21:37)
--- NOTE | 2019-03-28 18:18 | CT ---
EXAMINATION TYPE: CT abdomen pelvis wo con DATE OF EXAM: 03/28/2019 COMPARISON: 11/04/2014 HISTORY: Bleeding from unknown source. CT DLP: 1708.8 mGycm Automated exposure control for dose reduction was used. TECHNIQUE: Helical acquisition of images was performed from the lung bases through the pelvis. FINDINGS: There is minimal pleural thickening and atelectasis at the right posterior lung base. There is no ple ural effusion. Heart is slightly enlarged. Liver shows no focal defect. Gallbladder appears normal. Bile ducts are not dilated. Spleen appears n ormal. Stomach appears normal. There is no sign of pancreatic mass. There is 2.2 cm low-density right adrenal mass consistent with benign disease unchanged. Kidneys have normal size. There is some cortical thinning posterior lower pole left kidney with calcification con sistent with scarring. This could be from old pyelonephritis. Unchanged. There is no hydronephrosis. Ureters are not dilated. There is no retroperitoneal adenopathy. There is stent in the left iliac vei n. There is atherosclerotic vascular calcification. There are multiple renal vascular calcifications. The bladder distends smoothly. There is no inguinal hernia. There is no free fluid in the pelvis. The re is no mesenteric edema. There is no sign of a bowel obstruction. There is no free air. There is mi ld spondylotic changes in the lumbar spine. There is no compression fracture. The bony pelvis appears intact. IMPRESSION: ATHEROSCLEROTIC VASCULAR DISEASE. NO SIGN OF ACUTE ABDOMEN AND PELVIS. NO ADVERSE CHANGE COMPARED TO OLD EXAM.
[2019-03-28 20:51] LABS: Glucose,Whole Blood 234 mg/dL (75-99)
[2019-03-28] MEDS: INSULIN DETEMIR (LEVEMIR) 100 UNIT/ML SYR SQ SCH (21:00)
[2019-03-28] MEDS: ATORVASTATIN 40 MG TAB PO SCH (21:36)
[2019-03-29 05:58] LABS: Anisocytosis Slight; Basophils % (A) 1 %; Eosinophils # (A) 0.4 k/uL (0-0.7); Eosinophils % (A) 6 %; HGB 10.2 gm/dL (11.4-16.0); Hypochromasia Slight; Lymphocytes # (A) 1.7 k/uL (1.0-4.8); Lymphocytes % (A) 25 %; MCH 28.2 pg (25.0-35.0); MCHC 31.9 g/dL (31.0-37.0); MCV 88.3 fL (80.0-100.0); Mean Platelet Volume 6.6; Monocytes # (A) 0.5 k/uL (0-1.0); Monocytes % (A) 8 %; Neutrophils % (A) 58 %; Platelet Count 279 k/uL (150-450); RBC 3.62 m/uL (3.80-5.40); RDW 16.4 % (11.5-15.5); WBC 6.9 k/uL (3.8-10.6)
[2019-03-29 06:10] LABS: Potassium 4.5 mmol/L (3.5-5.1)
[2019-03-29 06:14] LABS: Glucose,Whole Blood 132 mg/dL (75-99)
[2019-03-29] MEDS: SODIUM CHLORIDE 0.9% 1,000 ML IV SCH (07:02)
[2019-03-29] MEDS: INSULIN ASPART (NovoLOG) 100 UNIT/ML VIAL SQ SCH ×4 (07:02→21:01)
[2019-03-29] MEDS: ASPIRIN 81 MG PO SCH (09:44)
[2019-03-29] MEDS: METOPROLOL TARTRATE 50 MG TAB PO SCH (09:44)
[2019-03-29] MEDS: ALLOPURINOL 100 MG TAB PO SCH (09:44)
[2019-03-29] MEDS: LISINOPRIL 5 MG TAB PO SCH (09:44)
[2019-03-29] MEDS: FERROUS SULFATE 325 MG TAB PO SCH (09:44)
[2019-03-29] MEDS: FUROSEMIDE 40 MG TAB PO SCH ×3 (09:45→21:01)
[2019-03-29] MEDS: EDOXABAN TOSYLATE 30 MG TABLET PO SCH (09:45)
--- NOTE | 2019-03-29 11:44 | P.GSCN ---
History of Present Illness Consult date: 03/28/19 Reason for Consult: Hematuria Requesting physician: Edgardo Juarez History of present illness: The patient is a 68-year-old white female well-known to me. She was evaluated in 2014 for microhematuria. Her evaluation consisted of a CT scan, renal ultrasound, and cystoscopy. The only abnormalities noted was a right adrenal adenoma and a left renal calculus. She underwent ESWL, but the renal calculus failed to fragment. She has been treated for an overactive bladder. She was initially treated with Toviaz, and her voiding symptoms improved considerably. However, she discontinued Toviaz due to spotting. She failed a trial of Myrbetriq. Oxybutynin chloride 15 mg daily improved her condition somewhat, and she was free of side effects, but this was held for cardiac reasons. She is now admitted with vomiting and diarrhea. She was noted to have significant bleeding yesterday, but the source of bleeding was unclear. Dr. Sears did a pelvic examination and did not see any evidence of vaginal bleeding. Straight catheterization revealed clear yellow urine. Past Medical History Past Medical History: Atrial Fibrillation, Heart Failure, Diabetes Mellitus, Eye Disorder, Hyperlipidemia, Osteoarthritis (OA), Pneumonia, Skin Disorder, Vascular Disorder Additional Past Medical History / Comment(s): Chronic Venous Stasis BLE w/ chronic ulceration of the left lower extremity, current small area still left leg, CAD W/ coronary stenting Rt PDA 2013. History of kidney stones. Pacemaker, ST DAPH[employer]. HAS CATARACT LT. WOUNDS LLE, USING SILVADENE CREAM. EDEMA BLE. seeing Dr Calderon r/t kidney function. Small wound LLE. History of Any Multi-Drug Resistant Organisms: None Reported Past Surgical History: Cardiac Ablation, Heart Catheterization, Heart Catheterization With Stent, Hysterectomy, Pacemaker, Tubal Ligation Additional Past Surgical History / Comment(s): states has had mult sx on veins left leg, [place] with cardioversion, varicose vein stripping, one cardiac stent, rt cataract, kidney stone sx, LLE surgery with stent and skin grafting. Past Anesthesia/Blood Transfusion Reactions: No Reported Reaction Additional Past Anesthesia/Blood Transfusion Reaction / Comm: PONV 40 PLUS YEARS AGO, AFTER REMOVAL KIDNEY STONE. Date of Last Stent Placement:: November 2013 Type of Cardiac Device: Permanent Pacemaker Device Placement Date:: 10/30/2017 Past Psychological History: No Psychological Hx Reported Additional Psychological History / Comment(s): . Smoking Status: Never smoker Past Alcohol Use History: None Reported Additional Past Alcohol Use History / Comment(s): . Past Drug Use History: None Reported - Past Family History Father History Unknown: Yes Family Medical History: No Reported History Additional Family Medical History / Comment(s): . Mother Family Medical History: Cancer Additional Family Medical History / Comment(s): bladder Medications and Allergies Home Medications Medication Instructions Recorded Confirmed Type Aspirin EC [Ecotrin Low Dose] 81 mg PO DAILY 02/27/14 03/25/19 History Edoxaban Tosylate [Savaysa] 60 mg PO DAILY 07/20/16 03/25/19 History Atorvastatin [Lipitor] 40 mg PO HS 10/22/17 03/25/19 History metFORMIN HCL [Glucophage] 850 mg PO TID 10/30/17 03/25/19 History Acetaminophen Tab [Tylenol] 650 mg PO Q6HR PRN tab 11/01/17 03/25/19 Rx Insulin Glargine,Hum.rec.anlog 34 units SQ HS 12/16/17 03/25/19 History [Toujeo Solostar] Liraglutide [Victoza 2-Ishan] 1.8 mg SQ DAILY 12/16/17 03/25/19 History Furosemide [Lasix] 40 mg PO TID 06/04/18 03/25/19 History Ferrous Sulfate [Feosol] 325 mg PO DAILY 01/19/19 03/25/19 History Lisinopril [Zestril] 5 mg PO DAILY 01/19/19 03/25/19 History Allopurinol [Zyloprim] 100 mg PO DAILY 03/25/19 03/25/19 History Calcitriol 0.25 mcg PO WE 03/25/19 03/25/19 History Metoprolol Tartrate [Lopressor] 50 mg PO DAILY 03/25/19 03/25/19 History Allergies Allergy/AdvReac Type Severity Reaction Status Date / Time Iodinated Contrast Media Allergy Severe THROAT Verified 03/25/19 16:58 [Iodinated Contrast Media - SWELLING Oral and] iodine Allergy Severe THROAT Verified 03/25/19 16:58 SWELLING, RASH shellfish derived Allergy Severe THROAT Verified 03/25/19 16:58 SWELLING, RASH cefazolin sodium Allergy Dyspnea Verified 03/25/19 16:58 [From Kefzol] Latex, Natural Rubber Allergy Rash/Hives Verified 03/25/19 16:58 levofloxacin [From Levaquin] Allergy Rash/Hives Verified 03/25/19 16:58 piperacillin sodium Allergy THROAT Verified 03/25/19 16:58 [From Zosyn] SWELL, RASH tazobactam sodium Allergy THROAT Verified 03/25/19 16:58 [From Zosyn] SWELL, RASH verapamil AdvReac Severe Hallucinati Verified 03/25/19 16:58 ons seafood Allergy Severe throat Uncoded 03/25/19 14:26 swelling Surgical - Exam Vital Signs Temp Pulse Resp BP Pulse Ox 97.4 F L 60 18 127/58 98 03/25/19 14:21 03/25/19 14:21 03/25/19 14:21 03/25/19 14:21 03/25/19 14:21 - General well developed, well nourished, no distress - Respiratory normal respiratory effort - Psychiatric oriented to time, oriented to person, oriented to place, speech is normal, steven ry intact Results - Labs 03/29/19 05:09 03/29/19 05:09 Abnormal Lab Results - Last 24 Hours (Table) 03/27/19 03/27/19 03/27/19 Range/Units 12:05 16:35 16:36 RBC (3.80-5.40) m/uL Hgb (11.4-16.0) gm/dL Hct (34.0-46.0) % RDW (11.5-15.5) % BUN (7-17) mg/dL Creatinine (0.52-1.04) mg/dL Glucose (74-99) mg/dL POC Glucose (mg/dL) 115 H (75-99) mg/dL Urine Appearance Bloody H (Clear) Urine RBC >182 H (0-5) /hpf Urine WBC >182 H (0-5) /hpf Urine WBC Clumps Many H (None) /hpf Urine Bacteria Rare H (None) /hpf Stool Occult Blood Positive H (Negative) 03/27/19 03/27/19 03/28/19 Range/Units 20:56 21:06 06:08 RBC 3.70 L (3.80-5.40) m/uL Hgb 10.5 L (11.4-16.0) gm/dL Hct 32.5 L (34.0-46.0) % RDW 16.0 H (11.5-15.5) % BUN (7-17) mg/dL Creatinine (0.52-1.04) mg/dL Glucose (74-99) mg/dL POC Glucose (mg/dL) 161 H 73 L (75-99) mg/dL Urine Appearance (Clear) Urine RBC (0-5) /hpf Urine WBC (0-5) /hpf Urine WBC Clumps (None) /hpf Urine Bacteria (None) /hpf Stool Occult Blood (Negative) 03/28/19 03/28/19 Range/Units 06:11 06:11 RBC 3.79 L (3.80-5.40) m/uL Hgb 10.8 L (11.4-16.0) gm/dL Hct 33.0 L (34.0-46.0) % RDW 16.0 H (11.5-15.5) % BUN 56 H (7-17) mg/dL Creatinine 1.64 H (0.52-1.04) mg/dL Glucose 73 L (74-99) mg/dL POC Glucose (mg/dL) (75-99) mg/dL Urine Appearance (Clear) Urine RBC (0-5) /hpf Urine WBC (0-5) /hpf Urine WBC Clumps (None) /hpf Urine Bacteria (None) /hpf Stool Occult Blood (Negative) Diabetes panel 03/28/19 Range/Units 06:11 Sodium 141 (137-145) mmol/L Potassium 4.4 (3.5-5.1) mmol/L Chloride 107 (98-107) mmol/L Carbon Dioxide 23 (22-30) mmol/L BUN 56 H (7-17) mg/dL Creatinine 1.64 H (0.52-1.04) mg/dL Glucose 73 L (74-99) mg/dL Calcium 9.2 (8.4-10.2) mg/dL Calcium panel 03/28/19 Range/Units 06:11 Calcium 9.2 (8.4-10.2) mg/dL Pituitary panel 03/28/19 Range/Units 06:11 Sodium 141 (137-145) mmol/L Potassium 4.4 (3.5-5.1) mmol/L Chloride 107 (98-107) mmol/L Carbon Dioxide 23 (22-30) mmol/L BUN 56 H (7-17) mg/dL Creatinine 1.64 H (0.52-1.04) mg/dL Glucose 73 L (74-99) mg/dL Calcium 9.2 (8.4-10.2) mg/dL Adrenal panel 03/28/19 Range/Units 06:11 Sodium 141 (137-145) mmol/L Potassium 4.4 (3.5-5.1) mmol/L Chloride 107 (98-107) mmol/L Carbon Dioxide 23 (22-30) mmol/L BUN 56 H (7-17) mg/dL Creatinine 1.64 H (0.52-1.04) mg/dL Glucose 73 L (74-99) mg/dL Calcium 9.2 (8.4-10.2) mg/dL Assessment and Plan Plan: Urinalysis showed the urine to be red in color, but it is not clear whether this was true hematuria or contamination. Renal ultrasound in November 2018 was unremarkable. The ultrasound will be repeated, and she will require cystoscopy to rule out intravesical pathology. Time with Patient: Greater than 30
--- NOTE | 2019-03-29 11:52 | P.PN ---
Subjective Progress Note Date: 03/29/19 This is a pleasant 68-year-old female who follows regularly with Dr. Ralph in the office. She has known history of persistent atrial fibrillation, history of prior pacemaker implantation, hyperlipidemia, peripheral vascular disease, hypertension, diabetes, coronary artery disease with prior stenting of the mid PDA in 2013, most recently the patient underwent a cardiac catheterization in January of this year which revealed evidence of pulmonary hypertension, calcified coronary arteries, mild to moderate disease involving the LAD and the right coronary artery, no evidence of restenosis at the site of prior stenting. Following that the patient was referred to specialist physician for evaluation of pulmonary hypertension. She does state that she had several tests performed in the office by Dr. Beard. She presents to the hospital on this occasion with symptoms of multiple episodes of vomiting, and associated diarrhea. Troponins were drawn in the emergency room and came back to be slightly abnormal and for this reason a cardiology consult was requested. EKG on presentation here showed atrial fibrillation with a controlled ventricular response. Chest x-ray on presentation here showed cardiomegaly, no pleural effusions, no pulmonary vascular congestion. Flattening of the diaphragms suggest underlying COPD. Blood pressure 132/60 with a heart rate of 60, 95% on room air. White blood cell count 8.8, hemoglobin 10.9, platelet count 294. Sodium 143 on admission with a potassium of 5.5, BUN 43 and creatinine 1.3. This morning sodium 141, potassium 4.6, BUN 44 and creatinine 1.4. BNP level 7290. Troponin 0.59, 0.73, 0.56. At the time of my examination this morning, patient denies any chest pain, breathing is similar to her usual according to her. She did have 2 more episodes of vomiting through the night last night. 03/27/2019 Patient seen and examined this morning, she did have one more episode of vomiting and also a significant bout of diarrhea. Patient also states that she's noticed a significant amount of blood, she is not sure if it's present in her urine or coming from her vagina area. Blood pressure this morning 108/40 with a heart rate of 60, 97% on room air. Blood cell count 7.9, hemoglobin 10.6, platelet count 287. Sodium 140, potassium 4.2, BUN 56 and creatinine 1.9. 03/29/2019 Patient seen and examined this morning, sitting up in the chair at bedside. Denies any chest discomfort, breathing is stable. Blood pressure 140/60 with a heart rate of 60, 97% on room air. White blood cell count 6.9, hemoglobin 10.2, platelet count 279. Sodium 140, potassium 4.5, BUN 53 and creatinine 1.5. Objective - Vital Signs Vital signs: Vital Signs Temp 98 F 03/29/19 08:00 Pulse 60 03/29/19 08:00 Resp 18 03/29/19 08:00 BP 139/63 03/29/19 08:00 Pulse Ox 97 03/29/19 08:00 Intake & Output 03/28/19 03/29/19 03/29/19 18:59 06:59 18:59 Intake Total 360 120 360 Output Total 3 Balance 360 117 360 Weight 118.6 kg Intake: Oral 360 120 360 Output: Urine 3 Other: Voiding Method Toilet Toilet # Voids 1 # Bowel Movements 0 - Exam PHYSICAL EXAMINATION: GENERAL: 68-year-old female in no acute distress at the time of my examination HEENT: Head is atraumatic, normocephalic. Pupils equal, round. Sclera anicteric. Conjunctiva are clear. Mucous membranes of the mouth are moist. Neck is supple. There is no elevated jugular venous pressure. No Carotid bruit is heard. HEART EXAMINATION: Heart S1 and S2 irregularly irregular a II/IV systolic ejection murmur is heard at the base, II/IV holosystolic murmur heard at the apex CHEST EXAMINATION: Lungs are clear to auscultation, mild diminished air entry to the bases ABDOMEN: Soft, obese, nontender. Bowel sounds are heard. No organomegaly noted. EXTREMITIES: 2+ peripheral pulses with 1+ evidence of peripheral edema and no calf tenderness noted. Patient does have chronic discoloration of the lower extremities as well as evidence of healed ulcerated area . NEUROLOGIC patient is awake, alert and oriented 3 . - Labs CBC & Chem 7: 03/29/19 05:09 03/29/19 05:09 Labs: Abnormal Lab Results - Last 24 Hours (Table) 03/28/19 03/28/19 03/28/19 Range/Units 11:49 16:53 20:50 RBC (3.80-5.40) m/uL Hgb (11.4-16.0) gm/dL Hct (34.0-46.0) % RDW (11.5-15.5) % BUN (7-17) mg/dL Creatinine (0.52-1.04) mg/dL Glucose (74-99) mg/dL POC Glucose (mg/dL) 158 H 179 H 234 H (75-99) mg/dL 03/29/19 03/29/19 03/29/19 Range/Units 05:09 05:09 06:13 RBC 3.62 L (3.80-5.40) m/uL Hgb 10.2 L (11.4-16.0) gm/dL Hct 32.0 L (34.0-46.0) % RDW 16.4 H (11.5-15.5) % BUN 53 H (7-17) mg/dL Creatinine 1.53 H (0.52-1.04) mg/dL Glucose 143 H (74-99) mg/dL POC Glucose (mg/dL) 132 H (75-99) mg/dL Assessment and Plan Plan: Assessment and plan #1 symptoms of nausea with frequent episodes of vomiting, associated diarrhea #2 abnormal troponins, cannot completely rule out acute coronary syndrome, could be secondary to abnormal renal function and mild congestive heart failure, patient just had a cardiac catheterization performed in January which revealed evidence of pulmonary hypertension. Calcified coronary arteries. Mild to moderate disease in the LAD and RCA with no evidence of restenosis at prior stented RCA #3 coronary artery disease with prior stent placement #4 hyperlipidemia #5 Persistent A. fib #6 PVD #7 hypertension #8 pulmonary hypertension #9 diabetes #10 chronic edema #11 moderate mitral regurg and moderate to severe tricuspid regurg with moderate pulmonary hypertension by [facility] performed in January #12 congestive heart failure, LV function has been known to be normal in the past, we will obtain an echocardiogram with Doppler study. Plan From cardiology's perspective, the patient may be discharged once cleared by primary. We'll make her a follow-up appointment to see Dr. Ralph in the office post discharge. DNP note has been reviewed, I agree with a documented findings and plan of care. Patient was seen and examined.
[2019-03-29 12:24] LABS: Glucose,Whole Blood 197 mg/dL (75-99)
--- NOTE | 2019-03-29 12:48 | CONS ---
CONSULTATION DATE OF DICTATION: 03/29/2019. REQUESTING PHYSICIAN: Dr. Edgardo Juarez. REASON FOR CONSULTATION: Possible GI bleed. HISTORY OF PRESENT ILLNESS: The patient is a 68-year-old pleasant white female, admitted to hospital because of not feeling well associated with nausea, vomiting, and diarrhea for the last 2 or 3 days duration. She was noted to have elevated troponins during this hospitalization and cardiology has been consulted. She did have a cardiac catheterization in January of this year that showed no significant coronary artery disease. While in the hospital, she developed an episode of severe significant bleeding which happened immediately after having a bowel movement which was brown in color. She stood up coming out of the shower and had significant blood with clots on her undergarments and on the floor. She was not sure at this point, whether it was vaginal bleeding but she does not think that it is coming from the rectum. Dr. Sears from [facility] was consulted who performed a [facility] examination and no obvious pathology was identified. 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 This morning, she had a bowel movement brown in color. It was somewhat loose. She denies any abdominal pain. Reports no nausea or vomiting. Denies any rectal bleeding. She did have a CT of the abdomen and pelvis done yesterday which was unremarkable other than atherosclerotic vascular disease. PAST MEDICAL HISTORY: Significant for history of hypertension, hypercholesteremia, diabetes mellitus, atrial fibrillation, osteoarthritis, chronic venous stasis. PAST SURGICAL HISTORY: Cardiac catheterization with stent placement in January of this year, hysterectomy, pacemaker implantation, tubal ligation, cardiac ablation. MEDICATIONS: At home include aspirin, Savaysa, Lipitor, Glucophage, insulin, Victoza, Lasix, an Zestril. ALLERGIES: TO IV CONTRAST DYE, LEVAQUIN, KEFZOL, ZOSYN, VERAPAMIL. SOCIAL HISTORY: No smoking. No alcohol use. FAMILY HISTORY: Mother had some bladder cancer. REVIEW OF SYSTEMS: CARDIOPULMONARY: She denies any chest pain. GASTROINTESTINAL: As mentioned earlier. GENITOURINARY: No dysuria or hematuria. MUSCULOSKELETAL unremarkable. SKIN unremarkable. Endocrine unremarkable. Psychiatric unremarkable. Neurology unremarkable. ENT/vision unremarkable. CONSTITUTIONAL: No recent weight loss. No fever, chills, night sweats. HEMATOLOGY unremarkable. PHYSICAL EXAMINATION: She appears comfortable, no apparent distress. Vital signs stable. Blood pressure is 139/63, pulse rate 60, temperature 98. HEENT examination unremarkable. Conjunctivae pink. Sclerae anicteric. Oral cavity no lesions. NECK: No JVD or lymph node enlargement. CHEST: Clear to auscultation. HEART: Regular rate and rhythm. ABDOMEN: Soft, nontender, nondistended. Bowel sounds are positive. No organomegaly. EXTREMITIES: No pedal edema. SKIN: No rashes. NEURO: She is alert and oriented x3. No focal deficits. LABS: From today WBC 6.9, hemoglobin 10.2, and platelets normal. Basic metabolic panel showed a BUN of 53, creatinine 1.56. Troponin was 0.7 2 days ago. AST, ALT, T-bilirubin and alkaline phosphatase are within normal limits. Amylase 102, lipase of 359. Stool occult blood was positive. Urine had bloody appearance with multiple WBC more than 180 per high-power field. IMPRESSION: 1. Acute onset of nausea, vomiting, diarrhea, which are gradually improving. Probably had an episode of viral gastroenteritis. 2. Episodes of possible perineal bleeding that happened 2 days ago. She did have a [facility] examination by Dr. Sears and the varices were noted. No obvious pathology or vaginal lesions seen. The patient is clear that she does not believe that this is a rectal bleeding. She did have a colonoscopy about 3 or [address] Rebecca Billy and has polyps. She had normal bowel movements this morning with no bleeding noted. 3. Coronary artery disease status post stent placement about 2 months ago. 4. Diabetes mellitus/hypertension, hyperlipidemia. RECOMMENDATIONS: Since it does not look like we are dealing with any GI bleed, no plans for any endoscopy intervention at the present time. At this time, we will monitor her closely. I did recommend for her to follow up in the office if she has any further episodes of rectal bleeding for consideration of a colonoscopy on an outpatient basis. Thank you for this consultation. We will sign off. Please call us if needed. MMODL / IJN: [id number] /
--- NOTE | 2019-03-29 15:46 | P.PN ---
Subjective Progress Note Date: 03/29/19 Principal diagnosis: Intractable nausea/vomiting/dehydration Acute renal injury Mild elevation of troponin Acute exacerbation CHF Vaginal bleed 68-year-old female w/ atrial fibrillation, history of prior pacemaker implantation, hyperlipidemia, peripheral vascular disease, hypertension, diabetes, coronary artery disease with prior stenting of the mid PDA in 2013, most recently the patient underwent a cardiac catheterization in 01/29 which revealed evidence of pulmonary hypertension, calcified coronary arteries, mild to moderate disease involving the LAD and the right coronary artery, no evidence of restenosis at the site of prior stenting. Following that the patient was referred to [facility] for evaluation of pulmonary hypertension. Patient is admitted with multiple episodes of vomiting, and associated diarrhea. Troponins were drawn in the emergency room and came back to be slightly abnormal and for this reason a cardiology consult was requested. EKG on presentation here showed atrial fibrillation with a controlled ventricular response. Chest x-ray on presentation here showed cardiomegaly, no pleural effusions, no pulmonary vascular congestion. Flattening of the diaphragms suggest underlying COPD. Blood pressure 132/60 with a heart rate of 60, 95% on room air. White blood cell count 8.8, hemoglobin 10.9, platelet count 294. Sodium 143 on admission with a potassium of 5.5, BUN 43 and creatinine 1.3. This morning sodium 141, potassium 4.6, BUN 44 and creatinine 1.4. BNP level 7290. Troponin 0.59, 0.73, 0.56. At the time of my examination this morning, patient denies any chest pain, breathing is similar to her usual according to her. She did have 2 more episodes of vomiting through the night last night. 03/27/2019 Patient seen and examined this morning, she did have one more episode of vomit ing and also a significant bout of diarrhea. Patient also states that she's noticed a significant amount of blood, she is not sure if it's present in her urine or coming from her vagina area. Blood pressure this morning 108/40 with a heart rate of 60, 97% on room air. Blood cell count 7.9, hemoglobin 10.6, platelet count 287. Sodium 140, potassium 4.2, BUN 56 and creatinine 1.9. We will continue current treatment and consult [facility] for recommendations on vaginal bleed and further evaluation if needed 03/28/2019 Patient is seen and evaluated at bedside; requesting to be started on home dose of Lasix Vital signs remained stable; labs are reviewed showing a stable hemoglobin at 10.5; B UN/creatinine is improved from her 56/1.9 yesterday down to 56/1.6 this morning; urine and stool occult blood is positive [facility] he has seen patient and recommending CT abdomen and pelvis; urology and GI is consulted for investigation on source of bleeding 03/29/2019 Patient is sitting up in bedside chair; family members are present in the room; continues to have some bleeding Vital signs are reviewed and blood pressure 140/60, pulse 60 and SpO2 of 97% on room air Lab review shows a white blood count of 6.9, hemoglobin 10.2 and platelet count of 279; sodium of 140, potassium 4.5 with BUN 52 and creatinine 1.5 Patient has been evaluated by [facility] he and no source of vaginal bleeding was found; CT of abdomen and pelvis was recommended which has been unchanged from previous study; GI and urology has been consulted to investigate source of blee ding and there evaluation is pending; cardiology has been following patient for abnormal troponins, cannot completely rule out acute coronary syndrome, could be secondary to abnormal renal function and mild congestive heart failure, patient just had a cardiac catheterization performed in January which revealed evidence of pulmonary hypertension. Calcified coronary arteries. Mild to moderate disease in the LAD and RCA with no evidence of restenosis at prior stented RCA; patient has been cleared for discharge by cardiology service Objective - Vital Signs Vital signs: Vital Signs Temp 98 F 03/29/19 08:00 Pulse 60 03/29/19 08:00 Resp 18 03/29/19 08:00 BP 139/63 03/29/19 08:00 Pulse Ox 97 03/29/19 08:00 Intake & Output 03/28/19 03/29/19 03/29/19 18:59 06:59 18:59 Intake Total 360 120 360 Output Total 3 Balance 360 117 360 Weight 118.6 kg Intake: Oral 360 120 360 Output: Urine 3 Other: Voiding Method Toilet Toilet # Voids 1 # Bowel Movements 0 - Exam GENERAL: 68-year-old female in no acute distress at the time of my examination HEENT: Head is atraumatic, normocephalic. Pupils equal, round. Sclera anicteric. Conjunctiva are clear. Mucous membranes of the mouth are moist. Neck is supple. There is no elevated jugular venous pressure. No Carotid bruit is heard. HEART EXAMINATION: Heart S1 and S2 irregularly irregular a II/IV systolic ejection murmur is heard at the base, II/IV holosystolic murmur heard at the apex CHEST EXAMINATION: Lungs are clear to auscultation, mild diminished air entry to the bases ABDOMEN: Soft, obese, nontender. Bowel sounds are heard. No organomegaly noted. EXTREMITIES: 2+ peripheral pulses with 1+ evidence of peripheral edema and no calf tenderness noted. Patient does have chronic discoloration of the lower extremities as well as evidence of healed ulcerated area . NEUROLOGIC patient is awake, alert and oriented 3 . - Labs CBC & Chem 7: 03/29/19 05:09 03/29/19 05:09 Labs: Abnormal Lab Results - Last 24 Hours (Table) 03/28/19 03/28/19 03/28/19 Range/Units 11:49 16:53 20:50 RBC (3.80-5.40) m/uL Hgb (11.4-16.0) gm/dL Hct (34.0-46.0) % RDW (11.5-15.5) % BUN (7-17) mg/dL Creatinine (0.52-1.04) mg/dL Glucose (74-99) mg/dL POC Glucose (mg/dL) 158 H 179 H 234 H (75-99) mg/dL 03/29/19 03/29/19 03/29/19 Range/Units 05:09 05:09 06:13 RBC 3.62 L (3.80-5.40) m/uL Hgb 10.2 L (11.4-16.0) gm/dL Hct 32.0 L (34.0-46.0) % RDW 16.4 H (11.5-15.5) % BUN 53 H (7-17) mg/dL Creatinine 1.53 H (0.52-1.04) mg/dL Glucose 143 H (74-99) mg/dL POC Glucose (mg/dL) 132 H (75-99) mg/dL Assessment and Plan Assessment: 1. Nausea with frequent episodes of vomiting, associated diarrhea 2. Elevated troponins, cannot completely rule out acute coronary syndrome, could be secondary to abnormal renal function and mild congestive heart failure, patient just had a cardiac catheterization performed in January which revealed evidence of pulmonary hypertension. Calcified coronary arteries. Mild to moderate disease in the LAD and RCA with no evidence of restenosis at prior stented RCA 3. Coronary artery disease with prior stent placement 4. Hyperlipidemia 5. Persistent A. fib 6. Hypertension 7. Pulmonary hypertension 8. Diabetes 9. Moderate mitral regurg and moderate to severe tricuspid regurg with moderate pulmonary hypertension by [facility] performed in January 10. Congestive heart failure, LV function has been known to be normal in the past, we will obtain an echocardiogram with Doppler study. Plan Cardiology is following and will review the echocardiogram with Doppler study. We also recommend further investigation regarding the agents bleeding. At this point in time we will continue with maximum medical therapy. DNP note has been reviewed, I agree with a documented findings and plan of care. Patient was seen and examined. Time with Patient: Greater than 30
[2019-03-29 16:57] LABS: Glucose,Whole Blood 141 mg/dL (75-99)
[2019-03-29 20:34] LABS: Glucose,Whole Blood 264 mg/dL (75-99)
[2019-03-29] MEDS: ATORVASTATIN 40 MG TAB PO SCH (21:01)
[2019-03-29] MEDS: INSULIN DETEMIR (LEVEMIR) 100 UNIT/ML SYR SQ SCH (21:01)
--- NOTE | 2019-03-29 21:58 | P.PN ---
Progress Note - Text Progress Note Date: 03/29/19 Mrs. Mendoza states that her bleeding has essentially resolved. The ultrasound and CT scan do not show any urologic abnormalities to explain the etiology of the bleeding. Arrangements will be made upon discharge for the patient to undergo office cystoscopy to rule out intravesical pathology. Please notify me if I can be of further assistance.
[2019-03-30] MEDS: SODIUM CHLORIDE 0.9% 1,000 ML IV SCH (02:07)
[2019-03-30 06:30] LABS: Anisocytosis Slight; Basophils % (A) 0 %; Eosinophils # (A) 0.4 k/uL (0-0.7); Eosinophils % (A) 6 %; HCT 30.9 % (34.0-46.0); HGB 10.1 gm/dL (11.4-16.0); Lymphocytes # (A) 1.5 k/uL (1.0-4.8); Lymphocytes % (A) 23 %; MCH 28.6 pg (25.0-35.0); MCHC 32.8 g/dL (31.0-37.0); MCV 87.2 fL (80.0-100.0); Mean Platelet Volume 6.4; Monocytes # (A) 0.5 k/uL (0-1.0); Monocytes % (A) 8 %; Neutrophils # (A) 3.8 k/uL (1.3-7.7); Neutrophils % (A) 60 %; Platelet Count 272 k/uL (150-450); RBC 3.54 m/uL (3.80-5.40); RDW 16.6 % (11.5-15.5); WBC 6.3 k/uL (3.8-10.6)
[2019-03-30 06:40] LABS: Calcium 9.1 mg/dL (8.4-10.2); Potassium 4.6 mmol/L (3.5-5.1)
[2019-03-30] MEDS: INSULIN ASPART (NovoLOG) 100 UNIT/ML VIAL SQ SCH ×3 (06:40→18:03)
[2019-03-30] MEDS: metFORMIN 850 MG TAB PO SCH ×3 (06:42→18:03)
[2019-03-30 06:57] LABS: Glucose,Whole Blood 136 mg/dL (75-99)
[2019-03-30] MEDS: FERROUS SULFATE 325 MG TAB PO SCH (08:39)
[2019-03-30] MEDS: FUROSEMIDE 40 MG TAB PO SCH ×3 (08:39→20:22)
[2019-03-30] MEDS: LISINOPRIL 5 MG TAB PO SCH (08:40)
[2019-03-30] MEDS: ASPIRIN 81 MG PO SCH (08:40)
[2019-03-30] MEDS: ALLOPURINOL 100 MG TAB PO SCH (08:40)
[2019-03-30] MEDS: METOPROLOL TARTRATE 50 MG TAB PO SCH (08:40)
[2019-03-30] MEDS: EDOXABAN TOSYLATE 30 MG TABLET PO SCH (08:40)
[2019-03-30 12:09] LABS: Glucose,Whole Blood 183 mg/dL (75-99)
[2019-03-30 12:14] VITALS: TEMP 96.6
[2019-03-30 12:20] VITALS: PULSE 60
--- NOTE | 2019-03-30 12:21 | P.PN ---
Subjective Patient denies any discomfort at this time. States she's continues to have a vaginal bleeding as like a mild menses. Patient has seen gastroenterology rule out rectal bleeding has seen by urology recommended follow-up care after discharge. Gynecology T exam and stated they saw some varicosities the perineum but stable. Cardiology has cleared for discharge. Noted ejection fraction with 50% to 25-30% Objective - Vital Signs Vital signs: Vital Signs Temp 96.6 F L 03/30/19 08:00 Pulse 63 03/30/19 08:00 Resp 16 03/30/19 08:00 BP 120/57 03/30/19 08:00 Pulse Ox 98 03/30/19 08:00 Intake & Output 03/29/19 03/30/19 03/30/19 18:59 06:59 18:59 Intake Total 840 462 Balance 840 462 Weight 118.2 kg Intake: Oral 840 462 Other: # Voids 0 2 # Bowel Movements 1 - Constitutional General appearance: Present: mild distress - EENT Eyes: Present: PERRLA Ears: bilateral: normal - Neck Neck: Present: normal ROM - Respiratory Respiratory: bilateral: CTA - Cardiovascular Rhythm: regular - Gastrointestinal General gastrointestinal: Present: normal bowel sounds, soft - Integumentary Integumentary: Present: normal - Neurologic Neurologic: Present: CNII-XII intact - Musculoskeletal Musculoskeletal: Present: generalized weakness - Psychiatric Psychiatric: Present: A&O x's 3, appropriate affect, intact judgment & insight - Labs CBC & Chem 7: 03/30/19 05:34 03/30/19 05:34 Labs: Abnormal Lab Results - Last 24 Hours (Table) 03/29/19 03/29/19 03/29/19 Range/Units 12:10 16:55 20:30 RBC (3.80-5.40) m/uL Hgb (11.4-16.0) gm/dL Hct (34.0-46.0) % RDW (11.5-15.5) % BUN (7-17) mg/dL Creatinine (0.52-1.04) mg/dL Glucose (74-99) mg/dL POC Glucose (mg/dL) 197 H 141 H 264 H (75-99) mg/dL 03/30/19 03/30/19 03/30/19 Range/Units 05:34 05:34 06:38 RBC 3.54 L (3.80-5.40) m/uL Hgb 10.1 L (11.4-16.0) gm/dL Hct 30.9 L (34.0-46.0) % RDW 16.6 H (11.5-15.5) % BUN 48 H (7-17) mg/dL Creatinine 1.50 H (0.52-1.04) mg/dL Glucose 132 H (74-99) mg/dL POC Glucose (mg/dL) 136 H (75-99) mg/dL 03/30/19 Range/Units 12:09 RBC (3.80-5.40) m/uL Hgb (11.4-16.0) gm/dL Hct (34.0-46.0) % RDW (11.5-15.5) % BUN (7-17) mg/dL Creatinine (0.52-1.04) mg/dL Glucose (74-99) mg/dL POC Glucose (mg/dL) 183 H (75-99) mg/dL - Imaging and Cardiology Chest x-ray: report reviewed CT scan - abdomen: report reviewed Assessment and Plan Plan: Assessment Chest enteritis Vaginal bleeding Dehydration Chest pain elevated troponins Atrial fibrillation persistent Congestive heart failure chronic diastolic acute systolic ejection fraction 25- 30% Pulmonary hypertension Diabetes type 2 Hyperlipidemia Chronic venous stasis with chronic edema lower extremities History of coronary disease with stents Pacemaker Chronic renal failure stage III History of hysterectomy Weakness Plan Continued cardiology consultation Follow-up outpatient with urology and gynecology
[2019-03-30 13:40] VITALS: BP 151/69; RESP 17
--- NOTE | 2019-03-30 14:55 | P.PN ---
Subjective Progress Note Date: 03/30/19 This is a pleasant 68-year-old female who follows regularly with Dr. Ralph in the office. She has known history of persistent atrial fibrillation, history of prior pacemaker implantation, hyperlipidemia, peripheral vascular disease, hypertension, diabetes, coronary artery disease with prior stenting of the mid PDA in 2013, most recently the patient underwent a cardiac catheterization in January of this year which revealed evidence of pulmonary hypertension, calcified coronary arteries, mild to moderate disease involving the LAD and the right coronary artery, no evidence of restenosis at the site of prior stenting. Following that the patient was referred to pc support specialist for evaluation of pulmonary hypertension. She does state that she had several tests performed in the office by Dr. Beard. She presents to the hospital on this occasion with symptoms of multiple episodes of vomiting, and associated diarrhea. Troponins were drawn in the emergency room and came back to be slightly abnormal and for this reason a cardiology consult was requested. EKG on presentation here showed atrial fibrillation with a controlled ventricular response. Chest x-ray on presentation here showed cardiomegaly, no pleural effusions, no pulmonary vascular congestion. Flattening of the diaphragms suggest underlying COPD. Blood pressure 132/60 with a heart rate of 60, 95% on room air. White blood cell count 8.8, hemoglobin 10.9, platelet count 294. Sodium 143 on admission with a potassium of 5.5, BUN 43 and creatinine 1.3. This morning sodium 141, potassium 4.6, BUN 44 and creatinine 1.4. BNP level 7290. Troponin 0.59, 0.73, 0.56. At the time of my examination this morning, patient denies any chest pain, breathing is similar to her usual according to her. She did have 2 more episodes of vomiting through the night last night. 03/27/2019 Patient seen and examined this morning, she did have one more episode of vomiting and also a significant bout of diarrhea. Patient also states that she's noticed a significant amount of blood, she is not sure if it's present in her urine or coming from her vagina area. Blood pressure this morning 108/40 with a heart rate of 60, 97% on room air. Blood cell count 7.9, hemoglobin 10.6, platelet count 287. Sodium 140, potassium 4.2, BUN 56 and creatinine 1.9. 03/29/2019 Patient seen and examined this morning, sitting up in the chair at bedside. Denies any chest discomfort, breathing is stable. Blood pressure 140/60 with a heart rate of 60, 97% on room air. White blood cell count 6.9, hemoglobin 10.2, platelet count 279. Sodium 140, potassium 4.5, BUN 53 and creatinine 1.5. 03/30/2019 Patient seen and examined this morning, continues to have vaginal bleeding but denies any chest discomfort, and her breathing is stable. Blood pressure 120/60 with a heart rate in the 60s, 98% on room air. White blood count it's 0.3, hemoglobin 10.1, platelet count 272. Sodium 139, potassium 4.6, BUN 48, creatinine 1.5. Objective - Vital Signs Vital signs: Vital Signs Temp 96.6 F L 03/30/19 08:00 Pulse 60 03/30/19 12:00 Resp 17 03/30/19 12:00 BP 151/69 03/30/19 12:00 Pulse Ox 96 03/30/19 12:00 Intake & Output 03/29/19 03/30/19 03/30/19 18:59 06:59 18:59 Intake Total 840 462 Balance 840 462 Weight 118.2 kg Intake: Oral 840 462 Other: # Voids 0 2 # Bowel Movements 1 - Exam PHYSICAL EXAMINATION: GENERAL: 68-year-old female in no acute distress at the time of my examination HEENT: Head is atraumatic, normocephalic. Pupils equal, round. Sclera anicteric. Conjunctiva are clear. Mucous membranes of the mouth are moist. Neck is supple. There is no elevated jugular venous pressure. No Carotid bruit is heard. HEART EXAMINATION: Heart S1 and S2 irregularly irregular a II/IV systolic ejection murmur is heard at the base, II/IV holosystolic murmur heard at the apex CHEST EXAMINATION: Lungs are clear to auscultation, mild diminished air entry to the bases ABDOMEN: Soft, obese, nontender. Bowel sounds are heard. No organomegaly noted. EXTREMITIES: 2+ peripheral pulses with 1+ evidence of peripheral edema and no calf tenderness noted. Patient does have chronic discoloration of the lower extremities as well as evidence of healed ulcerated area . NEUROLOGIC patient is awake, alert and oriented 3 . - Labs CBC & Chem 7: 03/30/19 05:34 03/30/19 05:34 Labs: Abnormal Lab Results - Last 24 Hours (Table) 03/29/19 03/29/19 03/30/19 Range/Units 16:55 20:30 05:34 RBC 3.54 L (3.80-5.40) m/uL Hgb 10.1 L (11.4-16.0) gm/dL Hct 30.9 L (34.0-46.0) % RDW 16.6 H (11.5-15.5) % BUN (7-17) mg/dL Creatinine (0.52-1.04) mg/dL Glucose (74-99) mg/dL POC Glucose (mg/dL) 141 H 264 H (75-99) mg/dL 03/30/19 03/30/19 03/30/19 Range/Units 05:34 06:38 12:09 RBC (3.80-5.40) m/uL Hgb (11.4-16.0) gm/dL Hct (34.0-46.0) % RDW (11.5-15.5) % BUN 48 H (7-17) mg/dL Creatinine 1.50 H (0.52-1.04) mg/dL Glucose 132 H (74-99) mg/dL POC Glucose (mg/dL) 136 H 183 H (75-99) mg/dL Assessment and Plan Plan: Assessment and plan #1 symptoms of nausea with frequent episodes of vomiting, associated diarrhea #2 abnormal troponins, cannot completely rule out acute coronary syndrome, could be secondary to abnormal renal function and mild congestive heart failure, patient just had a cardiac catheterization performed in January which revealed evidence of pulmonary hypertension. Calcified coronary arteries. Mild to moderate disease in the LAD and RCA with no evidence of restenosis at prior stented RCA #3 coronary artery disease with prior stent placement #4 hyperlipidemia #5 Persistent A. fib #6 PVD #7 hypertension #8 pulmonary hypertension #9 diabetes #10 chronic edema #11 moderate mitral regurg and moderate to severe tricuspid regurg with moderate pulmonary hypertension by [place] performed in January #12 congestive heart failure, LV function has been known to be normal in the past, we will obtain an echocardiogram with Doppler study. Plan From cardiology's perspective, the patient may be discharged once cleared by primary. We'll make her a follow-up appointment to see Dr. Ralph in the office post discharge. DNP note has been reviewed, I agree with a documented findings and plan of care. Patient was seen and examined.
--- NOTE | 2019-03-30 16:34 | PN ---
PROGRESS NOTE DATE OF DICTATION: 03/30/2019 This patient is a 68-year-old pleasant white female admitted to the hospital with chest pain and shortness of breath, and while in the hospital she had an episode of perineal bleeding. She stated that she had a bowel movement yesterday that was brown in color with no bleeding. This afternoon she just had another episode of perineal bleeding. She noticed some bright red blood with some dripping noted a few hours ago. This was not associated with any defecation. She is not feeling well. She denies any new symptoms. PHYSICAL EXAMINATION: She appears comfortable. No apparent distress. VITAL SIGNS: Stable. Blood pressure 151/69, pulse rate 60, temperature 96.6. HEENT examination unremarkable. Conjunctivae pink. Sclerae anicteric. Oral cavity no lesions. NECK: No JVD or lymph node enlargement. CHEST: Clear to auscultation. HEART: Regular rate and rhythm. ABDOMEN: Soft. Bowel sounds are positive. No organomegaly. EXTREMITIES: No pedal edema. SKIN: No rashes. NEUROLOGIC: Alert and oriented x3. No focal deficits. LABS: Labs from today show WBC 6.3, hemoglobin 10.1. Platelets are normal. Basic metabolic panel showed a BUN of 48, creatinine 1.50. IMPRESSION: 1. 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 She did have [employer] examination by Dr. Sears which was unremarkable. 2. Hemoccult-positive stool, but clinically no evidence of active gastrointestinal bleed. Her last colonoscopy [address] Rebecca Billy was normal. 3. Elevated troponin. Cardiology is following the patient closely. 4. Coronary artery disease, status post stent placement in January of this year. RECOMMENDATIONS: 1. Since the hemoglobin is stable, we can continue to monitor her closely. 2. No indication for a colonoscopy at this time. 3. After she goes home, if she has any episodes of rectal bleeding, she was advised to notify me immediately, and we can consider an outpatient colonoscopy if indicated. Thank you for this consultation. MMODL / IJN: [id number] /
[2019-03-30 17:31] LABS: Glucose,Whole Blood 144 mg/dL (75-99)
[2019-03-30] MEDS: ATORVASTATIN 40 MG TAB PO SCH (20:22)
--- NOTE | 2019-03-31 11:35 | P.DS ---
Providers Date of admission: 03/25/19 16:37 Expected date of discharge: 03/30/19 Attending physician: Edgardo Juarez Consults: 03/25/19 16:37 Consult Physician Urgent Consulting Provider: [facility] Consult Reason/Comments: Non-STEMI Do you want consulting provider notified?: Yes 03/27/19 14:30 Consult Physician Routine Consulting Provider: Adrian Sears Consult Reason/Comments: Vaginal Bleeding Do you want consulting provider notified?: Yes 03/27/19 15:21 Consult Physician Routine Consulting Provider: Rashad Trammell Consult Reason/Comments: Blood in urine Do you want consulting provider notified?: Yes 03/28/19 12:15 Consult Physician Routine Consulting Provider: Camille Fajardo Consult Reason/Comments: poss GIB Do you want consulting provider notified?: Yes Primary care physician: Edgardo Juarez Hospital Course: 68-year-old female was brought in the emergency room with complaints of vomiting and diarrhea developed chest pain. Nausea and vomiting subsided. 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 Patient had developed some bleeding from perineum unknown source. Noted change in ejection fraction 3 months ago EF 50% at present EF 25-30%. Case was discussed with Dr. Ralph by physician Dr. Edgardo Juarez. States 11 close follow-up with repeat echo in 2 weeks Assessment Gastroenteritis Chest pain with elevated troponins not felt to be cardiac event Chronic persistent atrial fibrillation Congestive heart failure chronic diastolic acute systolic dysfunction EF 25-30% Diabetes type 2 Hyperlipidemia Peripheral vascular disease with venous stasis chronic edema to lower extremities Coronary artery disease with stents Pacemaker Chronic renal failure stage III History of hysterectomy Pulmonary hypertension Plan Follow-up with family physician Dr. Edgardo Juarez Follow-up with urology for evaluation of hematuria Follow-up in [address] Ralph and for repeat echo Plan - Discharge Summary Discharge Rx Participant: No New Discharge Prescriptions: No Action Aspirin EC [Ecotrin Low Dose] 81 mg PO DAILY Edoxaban Tosylate [Savaysa] 60 mg PO DAILY Atorvastatin [Lipitor] 40 mg PO HS metFORMIN HCL [Glucophage] 850 mg PO TID Acetaminophen Tab [Tylenol] 650 mg PO Q6HR PRN tab PRN Reason: Mild Pain Insulin Glargine,Hum.rec.anlog [Toujeo Solostar] 34 units SQ HS Liraglutide [Victoza 2-Ishan] 1.8 mg SQ DAILY Furosemide [Lasix] 40 mg PO TID Ferrous Sulfate [Feosol] 325 mg PO DAILY Metoprolol Tartrate [Lopressor] 50 mg PO DAILY Allopurinol [Zyloprim] 100 mg PO DAILY Calcitriol 0.25 mcg PO WE Discharge Medication List Aspirin EC [Ecotrin Low Dose] 81 mg PO DAILY 02/27/14 [History] Edoxaban Tosylate [Savaysa] 60 mg PO DAILY 07/20/16 [History] Atorvastatin [Lipitor] 40 mg PO HS 10/22/17 [History] metFORMIN HCL [Glucophage] 850 mg PO TID 10/30/17 [History] Acetaminophen Tab [Tylenol] 650 mg PO Q6HR PRN tab 11/01/17 [Rx] Insulin Glargine,Hum.rec.anlog [Toujeo Solostar] 34 units SQ HS 12/16/17 [History] Liraglutide [Victoza 2-Ishan] 1.8 mg SQ DAILY 12/16/17 [History] Furosemide [Lasix] 40 mg PO TID 06/04/18 [History] Ferrous Sulfate [Feosol] 325 mg PO DAILY 01/19/19 [History] Allopurinol [Zyloprim] 100 mg PO DAILY 03/25/19 [History] Calcitriol 0.25 mcg PO WE 03/25/19 [History] Metoprolol Tartrate [Lopressor] 50 mg PO DAILY 03/25/19 [History] Follow up Appointment(s)/Referral(s): Edgardo Juarez MD [Primary Care Provider] - 1-2 days (Office is closed. Please call to schedule appointment) Otis Ralph MD [STAFF PHYSICIAN] - 04/14/19 3:30 pm (Saturday with WATER CONTROL STATION ENGINEER) Joe Romo MD [STAFF PHYSICIAN] - 1 Week (Office is closed. Please call to schedule appointment) Activity/Diet/Wound Care/Special Instructions: Schedule F/U appointment with Dr. Romo for office cystoscopy ([phone]). Discharge Disposition: HOME SELF-CARE
== END 2019-03-30 20:49 | disposition home or self-care (01) | DRG 391 ==
LOC: EC 14:16 → 3SCARD 16:37
PROVIDERS: ADMIT Family Medicine; ATTEND Family Medicine
DX: K52.9 Noninfective gastroenteritis and colitis, unspecified (principal); I50.43 Acute on chronic combined systolic (congestive) and diastolic (congestive) heart failure; I48.19 Other persistent atrial fibrillation; I13.0 Hypertensive heart and chronic kidney disease with heart failure and stage 1 through stage 4 chronic kidney disease, or unspecified chronic kidney disease; N17.9 Acute kidney failure, unspecified; I51.81 Takotsubo syndrome; E86.0 Dehydration; N93.9 Abnormal uterine and vaginal bleeding, unspecified; I27.20 Pulmonary hypertension, unspecified; N18.3 Chronic kidney disease, stage 3 (moderate); E11.51 Type 2 diabetes mellitus with diabetic peripheral angiopathy without gangrene; E11.22 Type 2 diabetes mellitus with diabetic chronic kidney disease; E78.5 Hyperlipidemia, unspecified; I87.8 Other specified disorders of veins; I86.3 Vulval varices; I25.10 Atherosclerotic heart disease of native coronary artery without angina pectoris; I08.1 Rheumatic disorders of both mitral and tricuspid valves; M19.90 Unspecified osteoarthritis, unspecified site; Z95.5 Presence of coronary angioplasty implant and graft; Z95.0 Presence of cardiac pacemaker; Z90.710 Acquired absence of both cervix and uterus; Z79.82 Long term (current) use of aspirin; Z79.899 Other long term (current) drug therapy; Z79.84 Long term (current) use of oral hypoglycemic drugs; Z79.4 Long term (current) use of insulin; Z87.01 Personal history of pneumonia (recurrent); Z87.442 Personal history of urinary calculi; Z88.8 Allergy status to other drugs, medicaments and biological substances; Z88.1 Allergy status to other antibiotic agents; Z91.041 Radiographic dye allergy status; Z91.040 Latex allergy status; Z91.013 Allergy to seafood
CPT/HCPCS: 36415; 71045; 71046; 74018; 74176; 76770; 80048; 80053; 80061; 81001; 82150; 82272; 82553; 83690; 83735; 83880; 84484; 85025; 85027; 85610; 85730; 93005; 93306; 96361; 96374; 99285

== ENCOUNTER 2019-04-13 12:54 | Inpatient (IN) | payer MEDICARE, BC ==
[2019-04-13] MEDS ORDERED: SODIUM CHLORIDE 0.9% 500 ML 500 ML IV STA (13:37)
--- NOTE | 2019-04-13 13:41 | ED ---
General Adult HPI - General Chief complaint: Arrhythmia/Palpitations Stated complaint: palpitations, vomiting Time Seen by Provider: 04/13/19 13:13 Source: patient Mode of arrival: wheelchair Limitations: no limitations - History of Present Illness Initial comments: Dictation was produced using [employer] dictation software. please excuse any grammatical, word or spelling errors. Chief Complaint: 68-year-old female presents with generalized weakness, chills, nausea and URI symptoms History of Present Illness: 68-year-old female she has multiple comorbidities. Patient reports that she had an episode of palpitations last night and today. Patient states her episode lasted for only 5 minutes. Patient is cardiac history including atrial fibrillation and valve disease. She reports that she was admitted to the hospital approximately 3 weeks ago when she was notified she had a feeling valve. Patient does not know exactly which valve is involved. Chart review shows that patient was admitted for non-ST segment elevation AR. Patient has been suffering from URI symptoms for the last 48 hours. She's been having runny nose, diarrhea and nausea. Denies sensation of the room spinning. No overt sick contacts. She has been having a mild increase in cough. The ROS documented in this emergency department record has been reviewed and confirmed by me. Those systems with pertinent positive or negative responses chandler ve been documented in the HPI. All other systems are other negative and/or noncontributory. PHYSICAL EXAM: General Impression: Alert and oriented x3, not in acute distress HEENT: Normocephalic atraumatic, extra-ocular movements intact, pupils equal and reactive to light bilaterally, mucous membranes moist. Cardiovascular: Heart regular rate and rhythm, S1&S2 audible, no murmurs, rubs or gallops Chest: Lungs clear to auscultation bilaterally, no rhonchi, no wheeze, no rales Abdomen: Bowel sounds present, abdomen soft, non-tender, non-distended, no organomegaly Musculoskeletal: Pulses present and equal in all extremities, nonpitting edema bilateral lower extremities Motor: no focal deficits noted Neurological: CN II-XII grossly intact, no focal motor or sensory deficits noted Skin: Intact with no visualized rashes Psych: Normal affect and mood ED course: 68-year-old female presents with chief complaint of nausea, generalized weakness and palpitations. Signs upon arrival are within acceptable limits. Chart was reviewed. Patient is on anticoagulation medication. Most recent hospitalization was reviewed. Should echocardiogram performed showing ejection fraction 25-30%.Laboratory evaluation obtained. Leukocytosis of 11.1. Coag panel shows an her 1.5. Metabolic panel shows slight elevation of renal markers which appear to be around improved from patient's baseline. Magnesium slightly low at 1.4. Influenza negative. Chest x-rays obtained showing multifocal right lung acute infiltrate versus atelectasis. Given patient's symptomatology there is concern of pulmonary infection. Patient is recently admitted 3 weeks ago. There is some concern of hospital-acquired pneumonia. Patient treated with broad-spectrum antibiotics. Blood cultures obtained. Patient has multiple ALLERGIES. Cefepime was chosen given it seemed the most benign after discussion with patient and after reviewing patient's chart.. We'll monitor patient for signs of ALLERGIC symptoms. EKG interpretation: Ventricular rate 60, atrial fibrillation, QRS 174, QTC 462 No VA prolongation, no QTC prolongation, no ST or T-wave changes noted. EKG compared to 03/25/2019 showing no changes. Overall, this EKG is unremarkable - Related Data Home Medications Medication Instructions Recorded Confirmed Aspirin EC [Ecotrin Low Dose] 81 mg PO DAILY 02/27/14 03/25/19 Edoxaban Tosylate [Savaysa] 60 mg PO DAILY 07/20/16 03/25/19 Atorvastatin [Lipitor] 40 mg PO HS 10/22/17 03/25/19 metFORMIN HCL [Glucophage] 850 mg PO TID 10/30/17 03/25/19 Insulin Glargine,Hum.rec.anlog 34 units SQ HS 12/16/17 03/25/19 [Dorothy Astorga] Liraglutide [Victoza 2-Ishan] 1.8 mg SQ DAILY 12/16/17 03/25/19 Furosemide [Lasix] 40 mg PO TID 06/04/18 03/25/19 Ferrous Sulfate [Feosol] 325 mg PO DAILY 01/19/19 03/25/19 Allopurinol [Zyloprim] 100 mg PO DAILY 03/25/19 03/25/19 Calcitriol 0.25 mcg PO WE 03/25/19 03/25/19 Metoprolol Tartrate [Lopressor] 50 mg PO DAILY 03/25/19 03/25/19 Previous Rx's Medication Instructions Recorded Acetaminophen Tab [Tylenol] 650 mg PO Q6HR PRN tab 11/01/17 Allergies Allergy/AdvReac Type Severity Reaction Status Date / Time Iodinated Contrast Media Allergy Severe THROAT Verified 04/13/19 12:55 [Iodinated Contrast Media - SWELLING Oral and] iodine Allergy Severe THROAT Verified 04/13/19 12:55 SWELLING, RASH shellfish derived Allergy Severe THROAT Verified 04/13/19 12:55 SWELLING, RASH cefazolin sodium Allergy Dyspnea Verified 04/13/19 12:55 [From Kefzol] Latex, Natural Rubber Allergy Rash/Hives Verified 04/13/19 12:55 levofloxacin [From Levaquin] Allergy Rash/Hives Verified 04/13/19 12:55 piperacillin sodium Allergy THROAT Verified 04/13/19 12:55 [From Zosyn] SWELL, RASH tazobactam sodium Allergy THROAT Verified 04/13/19 12:55 [From Zosyn] SWELL, RASH verapamil AdvReac Severe Hallucinati Verified 04/13/19 12:55 ons seafood Allergy Severe throat Uncoded 03/25/19 14:26 swelling Review of Systems ROS Statement: Those systems with pertinent positive or pertinent negative responses have been documented in the HPI. ROS Other: All systems not noted in ROS Statement are negative. Past Medical History Past Medical History: Atrial Fibrillation, Heart Failure, Diabetes Mellitus, Eye Disorder, Hyperlipidemia, Osteoarthritis (OA), Pneumonia, Skin Disorder, Vascular Disorder Additional Past Medical History / Comment(s): Chronic Venous Stasis BLE w/ chronic ulceration of the left lower extremity, current small area still left leg, CAD W/ coronary stenting Rt PDA 2013. History of kidney stones. Pacemaker, ST D[employer]. HAS CATARACT LT. WOUNDS LLE, USING SILVADENE CREAM. EDEMA BLE. seeing Dr Calderon r/t kidney function. Small wound LLE. History of Any Multi-Drug Resistant Organisms: None Reported Past Surgical History: Cardiac Ablation, Heart Catheterization, Heart Catheterization With Stent, Hysterectomy, Pacemaker, Tubal Ligation Additional Past Surgical History / Comment(s): states has had mult sx on veins left leg, [place] with cardioversion, varicose vein stripping, one cardiac stent, rt cataract, kidney stone sx, LLE surgery with stent and skin grafting. Past Anesthesia/Blood Transfusion Reactions: No Reported Reaction Additional Past Anesthesia/Blood Transfusion Reaction / Comment(s): PONV 40 PLUS YEARS AGO, AFTER REMOVAL KIDNEY STONE. Date of Last Stent Placement:: November 2013 Type of Cardiac Device: Permanent Pacemaker Device Placement Date:: 10/30/2017 Past Psychological History: No Psychological Hx Reported Smoking Status: Never smoker Past Alcohol Use History: None Reported Past Drug Use History: None Reported - Past Family History Father History Unknown: Yes Family Medical History: No Reported History Additional Family Medical History / Comment(s): . Mother Family Medical History: Cancer Additional Family Medical History / Comment(s): bladder General Exam Limitations: no limitations Course Vital Signs 04/13/19 04/13/19 04/13/19 12:55 13:28 13:30 Temperature 98.7 F Pulse Rate 60 60 Respiratory 18 21 29 H Rate Blood Pressure 148/64 137/62 O2 Sat by Pulse 96 94 L Oximetry 04/13/19 04/13/19 14:00 14:30 Temperature Pulse Rate 60 60 Respiratory 12 27 H Rate Blood Pressure 137/62 143/115 O2 Sat by Pulse 93 L 92 L Oximetry Medical Decision Making - Lab Data Result diagrams: 04/13/19 13:30 04/13/19 13:30 Lab Results 04/13/19 04/13/19 04/13/19 Range/Units 13:30 13:30 13:30 WBC 11.1 H (3.8-10.6) k/uL RBC 4.16 (3.80-5.40) m/uL Hgb 11.4 (11.4-16.0) gm/dL Hct 37.1 (34.0-46.0) % MCV 89.1 (80.0-100.0) fL MCH 27.3 (25.0-35.0) pg MCHC 30.6 L (31.0-37.0) g/dL RDW 15.4 (11.5-15.5) % Plt Count 288 (150-450) k/uL Neutrophils % 83 % Lymphocytes % 9 % Monocytes % 5 % Eosinophils % 1 % Basophils % 0 % Neutrophils # 9.3 H (1.3-7.7) k/uL Lymphocytes # 1.0 (1.0-4.8) k/uL Monocytes # 0.6 (0-1.0) k/uL Eosinophils # 0.1 (0-0.7) k/uL Basophils # 0.0 (0-0.2) k/uL PT 14.9 H (9.0-12.0) sec INR 1.5 H (<1.2) APTT 29.7 (22.0-30.0) sec Sodium 144 (137-145) mmol/L Potassium 4.4 (3.5-5.1) mmol/L Chloride 108 H (98-107) mmol/L Carbon Dioxide 22 (22-30) mmol/L Anion Gap 14 mmol/L BUN 38 H (7-17) mg/dL Creatinine 1.23 H (0.52-1.04) mg/dL Est GFR (CKD-EPI)AfAm 53 (>60 ml/min/1.73 sqM) Est GFR (CKD-EPI)NonAf 46 (>60 ml/min/1.73 sqM) Glucose 135 H (74-99) mg/dL Calcium 9.2 (8.4-10.2) mg/dL Magnesium 1.4 L (1.6-2.3) mg/dL Total Bilirubin 0.7 (0.2-1.3) mg/dL AST 21 (14-36) U/L ALT 17 (9-52) U/L Alkaline Phosphatase 69 (38-126) U/L Troponin I (0.000-0.034) ng/mL Total Protein 6.8 (6.3-8.2) g/dL Albumin 4.0 (3.5-5.0) g/dL Influenza Type A RNA (Not Detectd) Influenza Type B (PCR) (Not Detectd) 04/13/19 04/13/19 Range/Units 13:30 13:45 WBC (3.8-10.6) k/uL RBC (3.80-5.40) m/uL Hgb (11.4-16.0) gm/dL Hct (34.0-46.0) % MCV (80.0-100.0) fL MCH (25.0-35.0) pg MCHC (31.0-37.0) g/dL RDW (11.5-15.5) % Plt Count (150-450) k/uL Neutrophils % % Lymphocytes % % Monocytes % % Eosinophils % % Basophils % % Neutrophils # (1.3-7.7) k/uL Lymphocytes # (1.0-4.8) k/uL Monocytes # (0-1.0) k/uL Eosinophils # (0-0.7) k/uL Basophils # (0-0.2) k/uL PT (9.0-12.0) sec INR (<1.2) APTT (22.0-30.0) sec Sodium (137-145) mmol/L Potassium (3.5-5.1) mmol/L Chloride (98-107) mmol/L Carbon Dioxide (22-30) mmol/L Anion Gap mmol/L BUN (7-17) mg/dL Creatinine (0.52-1.04) mg/dL Est GFR (CKD-EPI)AfAm (>60 ml/min/1.73 sqM) Est GFR (CKD-EPI)NonAf (>60 ml/min/1.73 sqM) Glucose (74-99) mg/dL Calcium (8.4-10.2) mg/dL Magnesium (1.6-2.3) mg/dL Total Bilirubin (0.2-1.3) mg/dL AST (14-36) U/L ALT (9-52) U/L Alkaline Phosphatase (38-126) U/L Troponin I 0.015 (0.000-0.034) ng/mL Total Protein (6.3-8.2) g/dL Albumin (3.5-5.0) g/dL Influenza Type A RNA Not Detected (Not Detectd) Influenza Type B (PCR) Not Detected (Not Detectd) Disposition Clinical Impression: Pneumonia Disposition: ADMITTED IP TO THIS HOSP Condition: Fair Referrals: Edgardo Juarez MD [Primary Care Provider] - 1-2 days Decision Time: 14:58
[2019-04-13 13:58] LABS: Basophils % (A) 0 %; Eosinophils # (A) 0.1 k/uL (0-0.7); Eosinophils % (A) 1 %; HCT 37.1 % (34.0-46.0); HGB 11.4 gm/dL (11.4-16.0); Lymphocytes % (A) 9 %; MCH 27.3 pg (25.0-35.0); MCHC 30.6 g/dL (31.0-37.0); MCV 89.1 fL (80.0-100.0); Monocytes # (A) 0.6 k/uL (0-1.0); Monocytes % (A) 5 %; Neutrophils # (A) 9.3 k/uL (1.3-7.7); Neutrophils % (A) 83 %; Platelet Count 288 k/uL (150-450); RBC 4.16 m/uL (3.80-5.40); RDW 15.4 % (11.5-15.5); WBC 11.1 k/uL (3.8-10.6)
[2019-04-13 14:05] LABS: INR 1.5 (<1.2); Partial Thromboplastin Time 29.7 sec (22.0-30.0); Prothrombin Time 14.9 sec (9.0-12.0)
--- NOTE | 2019-04-13 14:16 | XR ---
EXAMINATION TYPE: XR chest 2V DATE OF EXAM: 04/13/2019 COMPARISON: Chest x-ray March 26, 2019 HISTORY: Dysrhythmia. TECHNIQUE: Frontal and lateral views of the chest are obtained. FINDINGS: Exam suboptimal due to patient's large body habitus. Cardiomegaly redemonstrated with athe rosclerotic aorta and dual-lead pacemaker. Redemonstration of old posterior lateral right eighth rib fracture. New right upper lobe and right basilar opacities are thought present. No pleural effusion o r pneumothorax. Left lung clear. Osseous structures intact. IMPRESSION: Cardiomegaly with suggestion of developing multifocal right lung acute infiltrate and/or atelectasis on current study. Progress study advised.
[2019-04-13 14:29] LABS: Calcium 9.2 mg/dL (8.4-10.2); Magnesium 1.4 mg/dL (1.6-2.3); Potassium 4.4 mmol/L (3.5-5.1); Total Bilirubin 0.7 mg/dL (0.2-1.3); Total Protein 6.8 g/dL (6.3-8.2)
[2019-04-13] MEDS ORDERED: CEFEPIME 2 GM in SODIUM CHLORIDE 0.9% 100 ML IVPB STA (14:52)
[2019-04-13] MEDS ORDERED: VANCOMYCIN IV PER PHARMACY 1 EACH MISC MISCELLANE PRN (14:52)
[2019-04-13] MEDS ORDERED: PNEUMONIA PROTOCOL UTILIZED 1 EACH MISC PO PRN (14:53)
[2019-04-13] MEDS ORDERED: ACETAMINOPHEN TAB 325 MG TAB PO PRN (14:59)
[2019-04-13] MEDS ORDERED: VANCOMYCIN 1,750 MG in SODIUM CHLORIDE 0.9% 500 ML 500 ML IVPB STA (15:01)
[2019-04-13] MEDS: MAGNESIUM SULFATE-D5W PMX 1 GM in DEXTROSE/WATER 1 100ML.BAG IVPB SCH ×2 (16:10→18:13)
[2019-04-13 16:15] LABS: Appearance,Urine Clear (Clear); Bacteria,Urine Occasional /hpf; Bilirubin,Urine Negative (Negative); Blood,Urine Negative (Negative); Calcium Oxalate Crystals,Urine Occasional /hpf; Color,Urine Light Yellow; Glucose,Urine (UA) Negative (Negative); Ketones,Urine Negative (Negative); Leukocyte Esterase,Urine Large (Negative); Mucus,Urine Rare /hpf; Nitrite,Urine Positive (Negative); Protein,Urine Negative (Negative); RBC,Urine 2 /hpf (0-5); Specific Gravity,Urine 1.009 (1.001-1.035); Squamous Epithelial Cell,Urine <1 /hpf (0-4); Urobilinogen,Urine <2.0 mg/dL (<2.0); WBC,Urine 72 /hpf (0-5)
[2019-04-13 17:32] LABS: Glucose,Whole Blood 185 mg/dL (75-99)
[2019-04-13 20:09] LABS: Glucose,Whole Blood 153 mg/dL (75-99)
[2019-04-13] MEDS: INSULIN DETEMIR (LEVEMIR) 100 UNIT/ML SYR SQ SCH (20:58)
[2019-04-13] MEDS: ATORVASTATIN 40 MG TAB PO SCH (20:58)
[2019-04-13] MEDS: metFORMIN 850 MG TAB PO SCH (20:59)
[2019-04-14 07:03] LABS: Glucose,Whole Blood 73 mg/dL (75-99)
[2019-04-14] MEDS: EDOXABAN TOSYLATE 60 MG TABLET PO SCH (08:00)
[2019-04-14] MEDS: metFORMIN 850 MG TAB PO SCH ×3 (08:00→21:20)
[2019-04-14] MEDS: ASPIRIN 81 MG PO SCH (08:00)
[2019-04-14] MEDS ORDERED: NON FORMULARY DRUG (Liraglutide [Victoza 2-Pak] 1.8 MG) SQ SCH (09:00)
[2019-04-14 09:28] LABS: Glucose,Whole Blood 132 mg/dL (75-99)
[2019-04-14] MEDS: SACUBITRIL/VALSARTAN 24 MG-26 MG TABLET PO SCH ×2 (09:51→21:20)
[2019-04-14] MEDS: VANCOMYCIN 1,750 MG in SODIUM CHLORIDE 0.9% 500 ML 500 ML IVPB SCH (09:52)
[2019-04-14 11:25] LABS: Glucose,Whole Blood 95 mg/dL (75-99)
--- NOTE | 2019-04-14 11:48 | P.CONS ---
History of Present Illness - Reason for Consult Consult date: 04/14/19 Multiple ALLERGY to medications - History of Present Illness This is a 68-year-old female with complaints of shortness of breath and vomiting. She also has a cough is nonproductive. She states she feels hot and cold. She vomited twice at home and then contacted her doctor and was told spell. She also states she had a fluttering feeling in her chest. She does have history of atrial fibrillation status post pacemaker. She had an appointment scheduled with her chlorination operator, Dr. Ralph, today for echocardi ogram. She was also scheduled to see Dr. Romo yesterday as she was following up from her recent hospitalization which time she was seen for gastroenteritis, acute systolic heart failure, and hematuria. Patient also has significant history of coronary artery disease, chronic kidney disease stage III, diabetes mellitus type 2, chronic atrial fibrillation status post pacemaker on chronic anticoagulation with Savaysa. Underlying to admission, patient was noted to have a drop in her ejection fraction from 50% 25-30% thus the need to follow up with Dr. Ralph. Patient has been afebrile, initial white count of 11.1, BUN 38 and creatinine 1.28, albumin 4.0, influenza testing negative. Urinalysis was nitrate positive, leukoesterase large, bacteria occasional. Urine culture and blood culture in progress. Sputum cultures are collected. Chest x-ray showed cardiomegaly with suggestion of multifocal right lung acute infiltrate and/or atelectasis. Patient was started on cefepime and vancomycin and admitted to the [facility] floor. This morning, in general she states she is feeling much better from yesterday. While she was in the bathroom this morning she became dizzy. She did have one loose stool this morning. No diarrhea. There are consults in place with cardiology and pulmonary medicine. Patient has a chronic peripheral vascular disease ulcer to the posterior left calf under the care of Dr. Ren. Regarding antibiotic ALLERGIES, patient has ALLERGY to penicillin which she r ecognizes as Zosyn that causes throat swelling and she states she has been told that she is not able to take this. Levaquin also has caused throat swelling. Kefzol is listed as an ALLERGY causing dyspnea which patient is unable to confirm. Review of Systems Constitutional: Reports chills, Reports fatigue, Reports fever, Reports poor appetite, Reports weakness Eyes: denies blurred vision, denies pain Ears, nose, mouth and throat: Reports vertigo, Denies dysphagia, Denies nasal congestion, Denies nasal discharge Cardiovascular: Reports lightheadedness, Reports shortness of breath, Denies chest pain, Denies edema, Denies leg edema, Denies syncope Respiratory: Reports cough, Reports dyspnea, Denies cough with sputum, Denies home oxygen, Denies wheezing Gastrointestinal: Reports loss of appetite, Reports nausea, Reports vomiting, Denies abdominal pain, Denies diarrhea Genitourinary: Denies dysuria, Denies hematuria, Denies urgency, Denies urinary frequency Musculoskeletal: Denies frequent falls, Denies gait dysfunction, Denies myalgias Integumentary: Reports wounds, Denies pruritus, Denies rash Neurological: Denies change in mentation, Denies confusion, Denies headaches, Denies seizures, Denies weakness Psychiatric: Denies anxiety, Denies depression Endocrine: Denies fatigue, Denies weight change Past Medical History Past Medical History: Atrial Fibrillation, Heart Failure, Diabetes Mellitus, Eye Disorder, Hyperlipidemia, Osteoarthritis (OA), Pneumonia, Skin Disorder, Vascular Disorder Additional Past Medical History / Comment(s): Chronic Venous Stasis BLE w/ chronic ulceration of the left lower extremity, current small area still left leg, CAD W/ coronary stenting Rt PDA 2013. History of kidney stones. Pacemaker (Brand:ST DAPHNE). HAS CATARACT LT. WOUNDS LLE, USING SILVADENE CREAM. EDEMA BLE. seeing Dr Calderon r/t kidney function. Small wound LLE. History of Any Multi-Drug Resistant Organisms: None Reported Past Surgical History: Cardiac Ablation, Heart Catheterization, Heart Catheterization With Stent, Hysterectomy, Pacemaker, Tubal Ligation Additional Past Surgical History / Comment(s): states has had mult sx on veins left leg, [place] with cardioversion, varicose vein stripping, one cardiac stent, rt cataract, kidney stone sx, LLE surgery with stent and skin grafting. Past Anesthesia/Blood Transfusion Reactions: No Reported Reaction Additional Past Anesthesia/Blood Transfusion Reaction / Comm: PONV 40 PLUS YEARS AGO, AFTER REMOVAL KIDNEY STONE. Date of Last Stent Placement:: November 2013 Type of Cardiac Device: Permanent Pacemaker Device Placement Date:: 10/30/2017 Past Psychological History: No Psychological Hx Reported Additional Psychological History / Comment(s): . Smoking Status: Never smoker Past Alcohol Use History: None Reported Additional Past Alcohol Use History / Comment(s): Patient is a lifelong nonsmoker. She denies any medical marijuana, marijuana, street drug or alcohol use. She lives at home with her . She has had no recent travel. There are no pets in the home. Past Drug Use History: None Reported - Past Family History Father History Unknown: Yes Family Medical History: No Reported History Additional Family Medical History / Comment(s): Aneurysm, apssed in 2000. Mother Family Medical History: Cancer Additional Family Medical History / Comment(s): Bladder and has since passed. Medications and Allergies Home Medications Medication Instructions Recorded Confirmed Type Aspirin EC [Ecotrin Low Dose] 81 mg PO DAILY 02/27/14 04/13/19 History Edoxaban Tosylate [Savaysa] 60 mg PO DAILY 07/20/16 04/13/19 History Atorvastatin [Lipitor] 40 mg PO HS 10/22/17 04/13/19 History metFORMIN HCL [Glucophage] 850 mg PO TID 10/30/17 04/13/19 History Acetaminophen Tab [Tylenol] 650 mg PO Q6HR PRN tab 11/01/17 04/13/19 Rx Insulin Glargine,Hum.rec.anlog 34 units SQ HS 12/16/17 04/13/19 History [Dorothy Soljordiar] Liraglutide [Victoza 2-Ishan] 1.8 mg SQ DAILY 12/16/17 04/13/19 History Furosemide [Lasix] 40 mg PO TID 06/04/18 04/13/19 History Ferrous Sulfate [Feosol] 325 mg PO DAILY 01/19/19 04/13/19 History Allopurinol [Zyloprim] 100 mg PO DAILY 03/25/19 04/13/19 History Calcitriol 0.25 mcg PO WE 03/25/19 04/13/19 History Metoprolol Tartrate [Lopressor] 50 mg PO DAILY 03/25/19 04/13/19 History Ergocalciferol [Vitamin D2] 50,000 unit PO WE 04/13/19 04/13/19 History Ranitidine HCl [Zantac] 150 mg PO DAILY 04/13/19 04/13/19 History Sacubitril/Valsartan [Entresto 24 1 tab PO BID 04/13/19 04/13/19 History mg-26 mg Tablet] Allergies Allergy/AdvReac Type Severity Reaction Status Date / Time Iodinated Contrast Media Allergy Severe THROAT Verified 04/13/19 16:05 [Iodinated Contrast Media - SWELLING Oral and] iodine Allergy Severe THROAT Verified 04/13/19 16:05 SWELLING, RASH shellfish derived Allergy Severe THROAT Verified 04/13/19 16:05 SWELLING, RASH cefazolin sodium Allergy Dyspnea Verified 04/13/19 16:05 [From Kefzol] Latex, Natural Rubber Allergy Rash/Hives Verified 04/13/19 16:05 levofloxacin [From Levaquin] Allergy Rash/Hives Verified 04/13/19 16:05 piperacillin sodium Allergy THROAT Verified 04/13/19 16:05 [From Zosyn] SWELL, RASH tazobactam sodium Allergy THROAT Verified 04/13/19 16:05 [From Zosyn] SWELL, RASH verapamil AdvReac Severe Hallucinati Verified 04/13/19 16:05 ons seafood Allergy Severe throat Uncoded 03/25/19 14:26 swelling Physical Exam Vitals: Vital Signs Temp Pulse Pulse Pulse Resp BP BP 04/14/19 09:32 97.9 F 58 L 18 145/88 04/14/19 05:00 98 F 55 L 18 130/74 04/13/19 20:59 98.1 F 60 20 114/53 04/13/19 17:42 98.8 F 59 L 20 150/77 04/13/19 16:00 60 24 148/66 04/13/19 15:30 148/66 04/13/19 15:00 63 22 139/62 04/13/19 14:30 60 27 H 143/115 04/13/19 14:00 60 12 137/62 04/13/19 13:30 60 29 H 137/62 04/13/19 13:28 21 04/13/19 12:55 98.7 F 60 18 148/64 Pulse Ox 04/14/19 09:32 96 04/14/19 05:00 95 04/13/19 20:59 94 L 04/13/19 17:42 95 04/13/19 16:00 98 04/13/19 15:30 04/13/19 15:00 95 04/13/19 14:30 92 L 04/13/19 14:00 93 L 04/13/19 13:30 94 L 04/13/19 13:28 04/13/19 12:55 96 Intake and Output 04/13/19 04/14/19 04/14/19 22:59 06:59 14:59 Intake Total 1200 600 120 Balance 1200 600 120 Intake: Intake, IV Titration 600 Amount Magnesium Sulfate-D5w Pmx 100 1 gm In Dextrose/Water 1 100ml.bag @ 100 mls/hr IVPB Q1H [place] Rx#: [id number] Vancomycin 1,750 mg In 500 Sodium Chloride 0.9% 500 ml 500 ml @ 167 mls/hr IVPB Q24H [place] Rx#: [id number] Oral 600 600 120 Other: Voiding Method Toilet # Voids 3 2 Weight 114.305 kg 114.9 kg Gen: This is an obese 68-year-old female. Patient is sitting up in a chair and appears to be comfortable. No respiratory distress noted. No accessory muscle usage. Patient is able to speak in full sentences. HEENT: Head is atraumatic, normocephalic. Pupils equal, round. Sclerae is anicteric. Oral mucous membranes are moist. No thrush noted. NECK: Supple. No JVD. No lymphadenopathy. No thyromegaly. LUNGS: Clear to auscultation. No wheezes or rhonchi. No intercostal retractions. HEART: Irregular rate and rhythm. Systolic murmur. ABDOMEN: Soft. Bowel sounds are present. No masses. No tenderness. EXTREMITIES: Trace bilateral pedal edema. No calf tenderness. Dorsalis pedis is +2 bilaterally. Patient has ulceration to the posterior left calf. NEUROLOGICAL: Patient is awake, alert and oriented x3. Cranial nerves 2 through 12 are grossly intact. Results Results: Laboratory Results WBC 11.1 k/uL (3.8-10.6) H 04/13/19 13:30 RBC 4.16 m/uL (3.80-5.40) 04/13/19 13:30 Hgb 11.4 gm/dL (11.4-16.0) 04/13/19 13:30 Hct 37.1 % (34.0-46.0) 04/13/19 13:30 MCV 89.1 fL (80.0-100.0) 04/13/19 13:30 MCH 27.3 pg (25.0-35.0) 04/13/19 13:30 MCHC 30.6 g/dL (31.0-37.0) L 04/13/19 13:30 RDW 15.4 % (11.5-15.5) 04/13/19 13:30 Plt Count 288 k/uL (150-450) 04/13/19 13:30 Neutrophils % 83 % 04/13/19 13:30 Lymphocytes % 9 % 04/13/19 13:30 Monocytes % 5 % 04/13/19 13:30 Eosinophils % 1 % 04/13/19 13:30 Basophils % 0 % 04/13/19 13:30 Neutrophils # 9.3 k/uL (1.3-7.7) H 04/13/19 13:30 Lymphocytes # 1.0 k/uL (1.0-4.8) 04/13/19 13:30 Monocytes # 0.6 k/uL (0-1.0) 04/13/19 13:30 Eosinophils # 0.1 k/uL (0-0.7) 04/13/19 13:30 Basophils # 0.0 k/uL (0-0.2) 04/13/19 13:30 PT 14.9 sec (9.0-12.0) H 04/13/19 13:30 INR 1.5 (<1.2) H 04/13/19 13:30 APTT 29.7 sec (22.0-30.0) 04/13/19 13:30 Sodium 144 mmol/L (137-145) 04/13/19 13:30 Potassium 4.4 mmol/L (3.5-5.1) 04/13/19 13:30 Chloride 108 mmol/L (98-107) H 04/13/19 13:30 Carbon Dioxide 22 mmol/L (22-30) 04/13/19 13:30 Anion Gap 14 mmol/L 04/13/19 13:30 BUN 38 mg/dL (7-17) H 04/13/19 13:30 Creatinine 1.23 mg/dL (0.52-1.04) H 04/13/19 13:30 Est GFR (CKD-EPI)AfAm 53 (>60 ml/min/1.73 sqM) 04/13/19 13:30 Est GFR (CKD-EPI)NonAf 46 (>60 ml/min/1.73 sqM) 04/13/19 13:30 Glucose 135 mg/dL (74-99) H 04/13/19 13:30 POC Glucose (mg/dL) 95 mg/dL (75-99) 04/14/19 11:23 POC Glu Derrick [employer] ID [place] 04/14/19 11:23 Calcium 9.2 mg/dL (8.4-10.2) 04/13/19 13:30 Magnesium 1.4 mg/dL (1.6-2.3) L 04/13/19 13:30 Total Bilirubin 0.7 mg/dL (0.2-1.3) 04/13/19 13:30 AST 21 U/L (14-36) 04/13/19 13:30 ALT 17 U/L (9-52) 04/13/19 13:30 Alkaline Phosphatase 69 U/L (38-126) 04/13/19 13:30 Troponin I 0.015 ng/mL (0.000-0.034) 04/13/19 13:30 NT-Pro-B Natriuret Pep 6040 pg/mL 04/13/19 13:30 Total Protein 6.8 g/dL (6.3-8.2) 04/13/19 13:30 Albumin 4.0 g/dL (3.5-5.0) 04/13/19 13:30 TSH 1.680 mIU/L (0.465-4.680) 04/13/19 13:30 Urine Color Light Yellow 04/13/19 16:03 Urine Appearance Clear (Clear) 04/13/19 16:03 Urine pH 5.0 (5.0-8.0) 04/13/19 16:03 Ur Specific [place] 1.009 (1.001-1.035) 04/13/19 16:03 Urine Protein Negative (Negative) 04/13/19 16:03 Urine Glucose (UA) Negative (Negative) 04/13/19 16:03 Urine Ketones Negative (Negative) 04/13/19 16:03 Urine Blood Negative (Negative) 04/13/19 16:03 Urine Nitrite Positive (Negative) H 04/13/19 16:03 Urine Bilirubin Negative (Negative) 04/13/19 16:03 Urine Urobilinogen <2.0 mg/dL (<2.0) 04/13/19 16:03 Ur Leukocyte Esterase Large (Negative) H 04/13/19 16:03 Urine RBC 2 /hpf (0-5) 04/13/19 16:03 Urine WBC 72 /hpf (0-5) H 04/13/19 16:03 Ur Squamous Epith Cells <1 /hpf (0-4) 04/13/19 16:03 Calcium Oxalate Crystal Occasional /hpf (None) H 04/13/19 16:03 Urine Bacteria Occasional /hpf (None) H 04/13/19 16:03 Urine Mucus Rare /hpf (None) H 04/13/19 16:03 Influenza Type A RNA Not Detected (Not Detectd) 04/13/19 13:45 Influenza Type B (PCR) Not Detected (Not Detectd) 04/13/19 13:45 CBC & Chem 7: 04/13/19 13:30 04/13/19 13:30 Labs: Abnormal Lab Results - Last 24 Hours (Table) 04/13/19 04/13/19 04/13/19 Range/Units 13:30 13:30 13:30 WBC 11.1 H (3.8-10.6) k/uL MCHC 30.6 L (31.0-37.0) g/dL Neutrophils # 9.3 H (1.3-7.7) k/uL PT 14.9 H (9.0-12.0) sec INR 1.5 H (<1.2) Chloride 108 H (98-107) mmol/L BUN 38 H (7-17) mg/dL Creatinine 1.23 H (0.52-1.04) mg/dL Glucose 135 H (74-99) mg/dL POC Glucose (mg/dL) (75-99) mg/dL Magnesium 1.4 L (1.6-2.3) mg/dL Urine Nitrite (Negative) Ur Leukocyte Esterase (Negative) Urine WBC (0-5) /hpf Calcium Oxalate Crystal (None) /hpf Urine Bacteria (None) /hpf Urine Mucus (None) /hpf 04/13/19 04/13/19 04/13/19 Range/Units 16:03 17:30 20:07 WBC (3.8-10.6) k/uL MCHC (31.0-37.0) g/dL Neutrophils # (1.3-7.7) k/uL PT (9.0-12.0) sec INR (<1.2) Chloride (98-107) mmol/L BUN (7-17) mg/dL Creatinine (0.52-1.04) mg/dL Glucose (74-99) mg/dL POC Glucose (mg/dL) 185 H 153 H (75-99) mg/dL Magnesium (1.6-2.3) mg/dL Urine Nitrite Positive H (Negative) Ur Leukocyte Esterase Large H (Negative) Urine WBC 72 H (0-5) /hpf Calcium Oxalate Crystal Occasional H (None) /hpf Urine Bacteria Occasional H (None) /hpf Urine Mucus Rare H (None) /hpf 04/14/19 04/14/19 Range/Units 06:57 09:16 WBC (3.8-10.6) k/uL MCHC (31.0-37.0) g/dL Neutrophils # (1.3-7.7) k/uL PT (9.0-12.0) sec INR (<1.2) Chloride (98-107) mmol/L BUN (7-17) mg/dL Creatinine (0.52-1.04) mg/dL Glucose (74-99) mg/dL POC Glucose (mg/dL) 73 L 132 H (75-99) mg/dL Magnesium (1.6-2.3) mg/dL Urine Nitrite (Negative) Ur Leukocyte Esterase (Negative) Urine WBC (0-5) /hpf Calcium Oxalate Crystal (None) /hpf Urine Bacteria (None) /hpf Urine Mucus (None) /hpf Microbiology - Last 24 Hours (Table) 04/13/19 16:03 Urine Culture - Preliminary Urine,Voided Assessment and Plan Plan: This is a 68-year-old female who presented to the hospital with symptoms of cough, fever and chills, vomiting and difficulty breathing. Initial chest x-ray showed possible right infiltrate or atelectasis. Patient has been started on cefepime and vancomycin. Sputum cultures on collected. Blood cu lture and urine culture in progress. Hemoglobin A1c ordered. Continue supportive care. Further recommendations as patient progresses. The above dictated assessment and findings were discussed with Dr. Mendoza. The impression and plan of care have been directed as dictated. Kari Martini nurse practitioner acting as scribe for Dr. Mendoza.
--- NOTE | 2019-04-14 11:58 | ECHOF ---
Referral Reason:chf elevated bnp MEASUREMENTS -------- HEIGHT: 170.2 cm WEIGHT: 112.0 kg BP: IVSd: 1.3 cm (0.6 - 1.1) LVIDd: 5.2 cm (3.9 - 5.3) LVPWd: 1.5 cm (0.6 - 1.1) IVSs: 2.3 cm LVIDs: 4.0 cm LVPWs: 1.0 cm IVSd: 1.9 cm (0.6 - 1.1) LVIDd: 4.9 cm (3.9 - 5.3) LVPWd: 1.3 cm (0.6 - 1.1) IVSs: 2.5 cm LVIDs: 2.9 cm LVPWs: 1.9 cm EDV(Teich): 115 ml ESV(Teich): 32 ml EF(Teich): 72 % %FS: 41 % SV(Teich): 83 ml FINDINGS -------- Sinus rhythm. This was a technically difficult study with suboptimal apical views. Limited Study The left ventricular size is normal. There is mild concentric left ventricular hypertrophy. Overa ll left ventricular systolic function is mildly impaired with, an EF between 45 - 50 %. 5.0mg of Lumason was utilized for enhancement of images CONCLUSIONS -------- 1. Sinus rhythm. 2. This was a technically difficult study with suboptimal apical views. 3. Limited Study 4. The left ventricular size is normal. 5. There is mild concentric left ventricular hypertrophy. 6. Overall left ventricular systolic function is mildly impaired with, an EF between 45 - 50 %. 7. 5.0mg of Lumason was utilized for enhancement of images [employer]: Deirdre Burgos [facility]
--- NOTE | 2019-04-14 12:04 | P.CNPUL ---
History of Present Illness Consult date: 04/14/19 Requesting physician: Edgardo Juarez Reason for consult: pneumonia Chief complaint: Nausea vomiting or palpitation and cough. History of present illness: This is a 68-year-old female, was recently admitted to the hospital on 03/25/2019, and she was discharged home on 03/31/2019. Her initial presentation back then was mostly a presentation of nausea vomiting diarrhea, and chest pain. 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 Patient also had symptoms of gastroenteritis, chest pains with elevated troponin, chronic persistent atrial fibrillation, systolic congestive heart failure, type 2 diabetes, hyperlipidemia, coronary artery disease and previous stents, pacemaker implantation, and she had chronic renal failure stage III. Patient was discharged home with plans to follow-up with cardiology, and she was supposed to see the technical training manager today for repeat echocardiogram for further assessment of her LV dysfunction. At any rate the patient presented yesterday to the emergency room with mostly multiple complaints including nausea vomiting cough, cough is described as dry cough, fevers and chills, and her symptoms have been going on since last Saturday. Patient had a chest x-ray on admission showed a very limited area of infiltrate in the right upper lobe, although her most of her symptoms were mostly GI in nature, patient was admitted with the impression of right upper lobe pneumonia. CBC showed no evidence of leukocytosis. Her electrolytes were basically normal, renal profile is abnormal with a BUN of 56 creatinine 1.64 and this is about her baseline. Patient was also found to have urinary tract infection with positive pyuria and bacteriuria in the urine. And positive urine nitrites and urine leukocyte esterase. Considering her multiple ALLERGIES to different antibiotics, patient was treated with vancomycin and cefepime. Patient was also cautiously hydrated over the last 12 hours, and today during my evaluation, patient is feeling significantly better. She has some dry hacking cough, no further episodes of nausea, no vomiting, no abdominal pain, no melena, no hematemesis, denies any dysuria frequency or urgency denies any hematuria. Again patient made a dramatic clinical improvement basically overnight. Review of Systems Constitutional: Fever chills, fatigue, weakness. Eyes: Denies any blurred vision, denies any diplopia. Denies any proptosis or lid lag. Ears, nose, mouth and throat: Had minimal sore throats last Saturday, otherwise no other symptoms. Cardiovascular: Lightheadedness, intermittent palpitations, no chest pain, no syncope. Respiratory: As noted in HPI. Mostly dry hacking cough. And some shortness of breath Gastrointestinal: Nausea vomiting, decreased appetite, otherwise unremarkable. Genitourinary: Denies any hematuria frequency urgency or dysuria. Musculoskeletal: Denies any muscle aches or pains, denies any limitations in range of motion. Integumentary: Denies any rashes or pruritus. Neurological: Denies any headache blurred vision dizziness or confusion. Psychiatric: Denies any symptoms of active depression Endocrine: Denies any heat or cold intolerance. Past Medical History Past Medical History: Atrial Fibrillation, Heart Failure, Diabetes Mellitus, Eye Disorder, Hyperlipidemia, Osteoarthritis (OA), Pneumonia, Skin Disorder, Vascula r Disorder Additional Past Medical History / Comment(s): Chronic Venous Stasis BLE w/ chronic ulceration of the left lower extremity, current small area still left leg, CAD W/ coronary stenting Rt PDA 2013. History of kidney stones. Pacemaker (Brand:ST DAPHNE). HAS CATARACT LT. WOUNDS LLE, USING SILVADENE CREAM. EDEMA BLE. seeing Dr Calderon r/t kidney function. Small wound LLE. History of Any Multi-Drug Resistant Organisms: None Reported Past Surgical History: Cardiac Ablation, Heart Catheterization, Heart Catheterization With Stent, Hysterectomy, Pacemaker, Tubal Ligation Additional Past Surgical History / Comment(s): states has had mult sx on veins left leg, [place] with cardioversion, varicose vein stripping, one cardiac stent, rt cataract, kidney stone sx, LLE surgery with stent and skin grafting. Past Anesthesia/Blood Transfusion Reactions: No Reported Reaction Additional Past Anesthesia/Blood Transfusion Reaction / Comment(s): PONV 40 PLUS YEARS AGO, AFTER REMOVAL KIDNEY STONE. Date of Last Stent Placement:: November 2013 Type of Cardiac Device: Permanent Pacemaker Device Placement Date:: 10/30/2017 Past Psychological History: No Psychological Hx Reported Additional Psychological History / Comment(s): . Smoking Status: Never smoker Past Alcohol Use History: None Reported Past Drug Use History: None Reported - Past Family History Father History Unknown: Yes Family Medical History: No Reported History Additional Family Medical History / Comment(s): Aneurysm, apssed in 2000. Mother Family Medical History: Cancer Additional Family Medical History / Comment(s): Bladder and has since passed. Medications and Allergies Home Medications Medication Instructions Recorded Confirmed Type Aspirin EC [Ecotrin Low Dose] 81 mg PO DAILY 02/27/14 04/13/19 History Edoxaban Tosylate [Savaysa] 60 mg PO DAILY 07/20/16 04/13/19 History Atorvastatin [Lipitor] 40 mg PO HS 10/22/17 04/13/19 History metFORMIN HCL [Glucophage] 850 mg PO TID 10/30/17 04/13/19 History Acetaminophen Tab [Tylenol] 650 mg PO Q6HR PRN tab 11/01/17 04/13/19 Rx Insulin Glargine,Hum.rec.anlog 34 units SQ HS 12/16/17 04/13/19 History [Toujeo Solostar] Liraglutide [Victoza 2-Ishan] 1.8 mg SQ DAILY 12/16/17 04/13/19 History Furosemide [Lasix] 40 mg PO TID 06/04/18 04/13/19 History Ferrous Sulfate [Feosol] 325 mg PO DAILY 01/19/19 04/13/19 History Allopurinol [Zyloprim] 100 mg PO DAILY 03/25/19 04/13/19 History Calcitriol 0.25 mcg PO WE 03/25/19 04/13/19 History Metoprolol Tartrate [Lopressor] 50 mg PO DAILY 03/25/19 04/13/19 History Ergocalciferol [Vitamin D2] 50,000 unit PO WE 04/13/19 04/13/19 History Ranitidine HCl [Zantac] 150 mg PO DAILY 04/13/19 04/13/19 History Sacubitril/Valsartan [Entresto 24 1 tab PO BID 04/13/19 04/13/19 History mg-26 mg Tablet] Allergies Allergy/AdvReac Type Severity Reaction Status Date / Time Iodinated Contrast Media Allergy Severe THROAT Verified 04/13/19 16:05 [Iodinated Contrast Media - SWELLING Oral and] iodine Allergy Severe THROAT Verified 04/13/19 16:05 SWELLING, RASH shellfish derived Allergy Severe THROAT Verified 04/13/19 16:05 SWELLING, RASH cefazolin sodium Allergy Dyspnea Verified 04/13/19 16:05 [From Kefzol] Latex, Natural Rubber Allergy Rash/Hives Verified 04/13/19 16:05 levofloxacin [From Levaquin] Allergy Rash/Hives Verified 04/13/19 16:05 piperacillin sodium Allergy THROAT Verified 04/13/19 16:05 [From Zosyn] SWELL, RASH tazobactam sodium Allergy THROAT Verified 04/13/19 16:05 [From Zosyn] SWELL, RASH verapamil AdvReac Severe Hallucinati Verified 04/13/19 16:05 ons seafood Allergy Severe throat Uncoded 03/25/19 14:26 swelling Physical Exam Vitals: Vital Signs Temp Pulse Pulse Pulse Resp BP BP 04/14/19 09:32 97.9 F 58 L 18 145/88 04/14/19 05:00 98 F 55 L 18 130/74 04/13/19 20:59 98.1 F 60 20 114/53 04/13/19 17:42 98.8 F 59 L 20 150/77 04/13/19 16:00 60 24 148/66 04/13/19 15:30 148/66 04/13/19 15:00 63 22 139/62 04/13/19 14:30 60 27 H 143/115 04/13/19 14:00 60 12 137/62 04/13/19 13:30 60 29 H 137/62 04/13/19 13:28 21 04/13/19 12:55 98.7 F 60 18 148/64 Pulse Ox 04/14/19 09:32 96 04/14/19 05:00 95 04/13/19 20:59 94 L 04/13/19 17:42 95 04/13/19 16:00 98 04/13/19 15:30 04/13/19 15:00 95 04/13/19 14:30 92 L 04/13/19 14:00 93 L 04/13/19 13:30 94 L 04/13/19 13:28 04/13/19 12:55 96 Intake and Output 04/13/19 04/14/19 04/14/19 22:59 06:59 14:59 Intake Total 1200 600 120 Balance 1200 600 120 Intake: Intake, IV Titration 600 Amount Magnesium Sulfate-D5w Pmx 100 1 gm In Dextrose/Water 1 100ml.bag @ 100 mls/hr IVPB Q1H [facility] Rx#: [id number] Vancomycin 1,750 mg In 500 Sodium Chloride 0.9% 500 ml 500 ml @ 167 mls/hr IVPB Q24H [facility] Rx#: [id number] Oral 600 600 120 Other: Voiding Method Toilet # Voids 3 2 Weight 114.305 kg 114.9 kg Physical Exam: Revealed a 68-year-old female, in no distress. On room air. Head: Atraumatic, normocephalic. HEENT:[Neck is supple.] [No neck masses.] [No thyromegaly.] [No JVD.] Chest: [Clear throughout, no crackles, no rhonchi, no wheezes.] Cardiac Exam: [Normal S1 and S2, no S3 gallop, no murmur.] Abdomen: [Soft, nontender, no megaly, no rebound, no guarding, normal bowel sounds.] Extremities: [No clubbing, trace of bipedal edema, no cyanosis.] Patient has chronic venous stasis changes in lower extremities, and she has a skin graft in the left lower extremity with minimal ulceration on the posterior left calf region. Neurological Exam: [No focal neurologic deficit.] Alert and oriented 3. Psychiatric: Normal mood, affect and normal mental status examination. Skin: Skin graft noted in the left lower extremity with superficial ulceration. Lymphatics: No lymphadenopathy. Results - Laboratory Findings CBC and BMP: 04/13/19 13:30 04/13/19 13:30 PT/INR, D-dimer PT 14.9 sec (9.0-12.0) H 04/13/19 13:30 INR 1.5 (<1.2) H 04/13/19 13:30 Abnormal lab findings: Abnormal Labs 04/13/19 04/13/19 04/13/19 13:30 13:30 13:30 WBC 11.1 H MCHC 30.6 L Neutrophils # 9.3 H PT 14.9 H INR 1.5 H Chloride 108 H BUN 38 H Creatinine 1.23 H Glucose 135 H POC Glucose (mg/dL) Magnesium 1.4 L Urine Nitrite Ur Leukocyte Esterase Urine WBC Calcium Oxalate Crystal Urine Bacteria Urine Mucus 04/13/19 04/13/19 04/13/19 16:03 17:30 20:07 WBC MCHC Neutrophils # PT INR Chloride BUN Creatinine Glucose POC Glucose (mg/dL) 185 H 153 H Magnesium Urine Nitrite Positive H Ur Leukocyte Esterase Large H Urine WBC 72 H Calcium Oxalate Crystal Occasional H Urine Bacteria Occasional H Urine Mucus Rare H 04/14/19 04/14/19 06:57 09:16 WBC MCHC Neutrophils # PT INR Chloride BUN Creatinine Glucose POC Glucose (mg/dL) 73 L 132 H Magnesium Urine Nitrite Ur Leukocyte Esterase Urine WBC Calcium Oxalate Crystal Urine Bacteria Urine Mucus - Diagnostic Findings Chest x-ray: image reviewed (As noted in HPI, very limited infiltrate in the right upper lobe. Could be even an area of atelectasis.) Assessment and Plan Assessment: Impression: 1 possible right upper lobe infiltrate, however the clinical history and the findings are not conclusive. 2 suspect acute urinary tract infection based on her urinalysis. 3 multiple GI symptoms could very well be related to her urinary tract infection. 4 history of cardiomyopathy and LV dysfunction based on recent echocardiogram. 5 history of chronic atrial fibrillation. 6 history of chronic ulceration of left lower extremity. 7 Type 2 diabetes 8 degenerative joint disease Recommendation: Considering the patient's improvement overnight, suggest we continue the same treatment plan, her antibiotics could be potentially D escalated based on her urine cultures. And these are pending. Again clinically I strongly doubt pneumonia, however a pro-calcitonin level was ordered, and if e levated, would speak in favor of pneumonia otherwise I am not quite convinced that the patient has a right upper lobe pneumonia. Her clinical presentation was mostly more of a GI presentation. Will also order a urine Legionella antigen. We'll continue to follow. Time with Patient: Greater than 30
--- NOTE | 2019-04-14 12:24 | P.HPIM ---
History of Present Illness 68-year-old female states that for the last 2 days she's had a dry cough with vomiting nasal congestion and sore throat. In the emergency room she was found to have a urinary tract infection possible pneumonia. Patient had consultation with pulmonology and infectious disease awaiting cardiology consultation regarding CHF. Patient does have a pacemaker EKG was 100% paced. Patient also has history of chronic renal failure stage III diabetes type 2 chronic venous stasis of lower extremities with ulcerations Review of Systems Constitutional: Reports malaise, Reports weakness Ears, nose, mouth and throat: Reports nasal congestion, Reports sore throat Respiratory: Reports cough Gastrointestinal: Reports nausea, Reports vomiting Past Medical History Past Medical History: Atrial Fibrillation, Heart Failure, Diabetes Mellitus, Eye Disorder, Hyperlipidemia, Osteoarthritis (OA), Pneumonia, Skin Disorder, Vascular Disorder Additional Past Medical History / Comment(s): Chronic Venous Stasis BLE w/ chronic ulceration of the left lower extremity, current small area still left leg, CAD W/ coronary stenting Rt PDA 2013. History of kidney stones. Pacemaker (Brand:ST DAPHNE). HAS CATARACT LT. WOUNDS LLE, USING SILVADENE CREAM. EDEMA BLE. seeing Dr Calderon r/t kidney function. Small wound LLE. History of Any Multi-Drug Resistant Organisms: None Reported Past Surgical History: Cardiac Ablation, Heart Catheterization, Heart Catheterization With Stent, Hysterectomy, Pacemaker, Tubal Ligation Additional Past Surgical History / Comment(s): states has had mult sx on veins left leg, [place] with cardioversion, varicose vein stripping, one cardiac stent, rt cataract, kidney stone sx, LLE surgery with stent and skin grafting. Past Anesthesia/Blood Transfusion Reactions: No Reported Reaction Additional Past Anesthesia/Blood Transfusion Reaction / Comment(s): PONV 40 PLUS YEARS AGO, AFTER REMOVAL KIDNEY STONE. Date of Last Stent Placement:: November 2013 Type of Cardiac Device: Permanent Pacemaker Device Placement Date:: 10/30/2017 Past Psychological History: No Psychological Hx Reported Additional Psychological History / Comment(s): . Smoking Status: Never smoker Past Alcohol Use History: None Reported Past Drug Use History: None Reported - Past Family History Father History Unknown: Yes Family Medical History: No Reported History Additional Family Medical History / Comment(s): Aneurysm, apssed in 2000. Mother Family Medical History: Cancer Additional Family Medical History / Comment(s): Bladder and has since passed. Medications and Allergies Home Medications Medication Instructions Recorded Confirmed Type Aspirin EC [Ecotrin Low Dose] 81 mg PO DAILY 02/27/14 04/13/19 History Edoxaban Tosylate [Savaysa] 60 mg PO DAILY 07/20/16 04/13/19 History Atorvastatin [Lipitor] 40 mg PO HS 10/22/17 04/13/19 History metFORMIN HCL [Glucophage] 850 mg PO TID 10/30/17 04/13/19 History Acetaminophen Tab [Tylenol] 650 mg PO Q6HR PRN tab 11/01/17 04/13/19 Rx Insulin Glargine,Hum.rec.anlog 34 units SQ HS 12/16/17 04/13/19 History [Toujeo Solostar] Liraglutide [Victoza 2-Ishan] 1.8 mg SQ DAILY 12/16/17 04/13/19 History Furosemide [Lasix] 40 mg PO TID 06/04/18 04/13/19 History Ferrous Sulfate [Feosol] 325 mg PO DAILY 01/19/19 04/13/19 History Allopurinol [Zyloprim] 100 mg PO DAILY 03/25/19 04/13/19 History Calcitriol 0.25 mcg PO WE 03/25/19 04/13/19 History Metoprolol Tartrate [Lopressor] 50 mg PO DAILY 03/25/19 04/13/19 History Ergocalciferol [Vitamin D2] 50,000 unit PO WE 04/13/19 04/13/19 History Ranitidine HCl [Zantac] 150 mg PO DAILY 04/13/19 04/13/19 History Sacubitril/Valsartan [Entresto 24 1 tab PO BID 04/13/19 04/13/19 History mg-26 mg Tablet] Allergies Allergy/AdvReac Type Severity Reaction Status Date / Time Iodinated Contrast Media Allergy Severe THROAT Verified 04/13/19 16:05 [Iodinated Contrast Media - SWELLING Oral and] iodine Allergy Severe THROAT Verified 04/13/19 16:05 SWELLING, RASH shellfish derived Allergy Severe THROAT Verified 04/13/19 16:05 SWELLING, RASH cefazolin sodium Allergy Dyspnea Verified 04/13/19 16:05 [From Kefzol] Latex, Natural Rubber Allergy Rash/Hives Verified 04/13/19 16:05 levofloxacin [From Levaquin] Allergy Rash/Hives Verified 04/13/19 16:05 piperacillin sodium Allergy THROAT Verified 04/13/19 16:05 [From Zosyn] SWELL, RASH tazobactam sodium Allergy THROAT Verified 04/13/19 16:05 [From Zosyn] SWELL, RASH verapamil AdvReac Severe Hallucinati Verified 04/13/19 16:05 ons seafood Allergy Severe throat Uncoded 03/25/19 14:26 swelling Physical Exam Vitals: Vital Signs Temp Pulse Pulse Pulse Resp BP BP 04/14/19 09:32 97.9 F 58 L 18 145/88 04/14/19 05:00 98 F 55 L 18 130/74 04/13/19 20:59 98.1 F 60 20 114/53 04/13/19 17:42 98.8 F 59 L 20 150/77 04/13/19 16:00 60 24 148/66 04/13/19 15:30 148/66 04/13/19 15:00 63 22 139/62 04/13/19 14:30 60 27 H 143/115 04/13/19 14:00 60 12 137/62 04/13/19 13:30 60 29 H 137/62 04/13/19 13:28 21 04/13/19 12:55 98.7 F 60 18 148/64 Pulse Ox 04/14/19 09:32 96 04/14/19 05:00 95 04/13/19 20:59 94 L 04/13/19 17:42 95 04/13/19 16:00 98 04/13/19 15:30 04/13/19 15:00 95 04/13/19 14:30 92 L 04/13/19 14:00 93 L 04/13/19 13:30 94 L 04/13/19 13:28 04/13/19 12:55 96 Intake and Output 04/13/19 04/14/19 04/14/19 22:59 06:59 14:59 Intake Total 1200 600 120 Balance 1200 600 120 Intake: Intake, IV Titration 600 Amount Magnesium Sulfate-D5w Pmx 100 1 gm In Dextrose/Water 1 100ml.bag @ 100 mls/hr IVPB Q1H [facility] Rx#: [id number] Vancomycin 1,750 mg In 500 Sodium Chloride 0.9% 500 ml 500 ml @ 167 mls/hr IVPB Q24H [facility] Rx#: [id number] Oral 600 600 120 Other: Voiding Method Toilet # Voids 3 2 Weight 114.305 kg 114.9 kg - Constitutional General appearance: mild distress - EENT Eyes: PERRLA Ears: bilateral: normal - Neck Neck: normal ROM - Respiratory Respiratory: bilateral: diminished - Cardiovascular Rhythm: regular Abnormal Heart Sounds: systolic murmur - Gastrointestinal General gastrointestinal: normal bowel sounds, soft - Integumentary Venous discoloration in the lower extremities - Neurologic Neurologic: CNII-XII intact - Musculoskeletal Musculoskeletal: generalized weakness - Psychiatric Psychiatric: A&O x's 3, appropriate affect, intact judgment & insight Results CBC & Chem 7: 04/13/19 13:30 04/13/19 13:30 Labs: Abnormal Lab Results - Last 24 Hours (Table) 04/13/19 04/13/19 04/13/19 Range/Units 13:30 13:30 13:30 WBC 11.1 H (3.8-10.6) k/uL MCHC 30.6 L (31.0-37.0) g/dL Neutrophils # 9.3 H (1.3-7.7) k/uL PT 14.9 H (9.0-12.0) sec INR 1.5 H (<1.2) Chloride 108 H (98-107) mmol/L BUN 38 H (7-17) mg/dL Creatinine 1.23 H (0.52-1.04) mg/dL Glucose 135 H (74-99) mg/dL POC Glucose (mg/dL) (75-99) mg/dL Magnesium 1.4 L (1.6-2.3) mg/dL Urine Nitrite (Negative) Ur Leukocyte Esterase (Negative) Urine WBC (0-5) /hpf Calcium Oxalate Crystal (None) /hpf Urine Bacteria (None) /hpf Urine Mucus (None) /hpf 04/13/19 04/13/19 04/13/19 Range/Units 16:03 17:30 20:07 WBC (3.8-10.6) k/uL MCHC (31.0-37.0) g/dL Neutrophils # (1.3-7.7) k/uL PT (9.0-12.0) sec INR (<1.2) Chloride (98-107) mmol/L BUN (7-17) mg/dL Creatinine (0.52-1.04) mg/dL Glucose (74-99) mg/dL POC Glucose (mg/dL) 185 H 153 H (75-99) mg/dL Magnesium (1.6-2.3) mg/dL Urine Nitrite Positive H (Negative) Ur Leukocyte Esterase Large H (Negative) Urine WBC 72 H (0-5) /hpf Calcium Oxalate Crystal Occasional H (None) /hpf Urine Bacteria Occasional H (None) /hpf Urine Mucus Rare H (None) /hpf 04/14/19 04/14/19 Range/Units 06:57 09:16 WBC (3.8-10.6) k/uL MCHC (31.0-37.0) g/dL Neutrophils # (1.3-7.7) k/uL PT (9.0-12.0) sec INR (<1.2) Chloride (98-107) mmol/L BUN (7-17) mg/dL Creatinine (0.52-1.04) mg/dL Glucose (74-99) mg/dL POC Glucose (mg/dL) 73 L 132 H (75-99) mg/dL Magnesium (1.6-2.3) mg/dL Urine Nitrite (Negative) Ur Leukocyte Esterase (Negative) Urine WBC (0-5) /hpf Calcium Oxalate Crystal (None) /hpf Urine Bacteria (None) /hpf Urine Mucus (None) /hpf Microbiology - Last 24 Hours (Table) 04/13/19 16:03 Urine Culture - Preliminary Urine,Voided Abdominal x-ray: report reviewed Thrombosis Risk Factor Assmnt - Choose All That Apply Each Factor Represents 1 point: Obesity (BMI >25), Serious lung disease incl. pneumonia (< 1month), Swollen legs (current), Varicose veins Each Risk Factor Represents 2 Points: Age 61-74 years Other congenital or acquired thrombophilia - If yes, enter type in comment: No Thrombosis Risk Factor Assessment Total Risk Factor Score: 6 Thrombosis Risk Factor Assessment Level: High Risk Assessment and Plan Plan: Assessment Pneumonia and community acquired Urinary tract infection Acute on chronic congestive heart failure EF 45-50% Chronic venous stasis to lower extremities with ulcerations History of coronary disease with stents Chronic atrial fibrillation persistent history of ablation Pacemaker Chronic renal failure stage III Diabetes type 2 Plan Continue consultation with cardiology infectious disease and pulmonology
[2019-04-14 12:42] VITALS: PULSE 60
[2019-04-14 12:55] VITALS: BMI 39.6
[2019-04-14] MEDS: METOPROLOL TARTRATE 50 MG TAB PO SCH (13:01)
[2019-04-14] MEDS: VICTOZA 1.8 MG SQ SCH (13:01)
[2019-04-14] MEDS: FUROSEMIDE 40 MG TAB PO SCH ×2 (13:04→21:20)
--- NOTE | 2019-04-14 13:53 | P.CRDCN ---
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 She presented with nausea and vomiting. She follows in the office with Dr. Ralph. We have been asked to see him in consultation for hx of cardiomyopathy. She recently underwent a cardiac catheterization with Dr. Ralph in January 2019 revealing calcified coronary arteries, mild to moderate disease involving the LAD and the RCA, patent stent at this site of prior stenting and evidence of pulmonary hypertension. She came back to the hospital in mid-March with abnormal troponins, vomiting and diarrhea and was found to have an acute card iomyopathy with EF 25-30%. Thought to be a stress induced cardiomyopathy. She was started on appropriate heart failure medications. Repeat echo was scheduled for today in the office. However, she presented to the hospital with symptoms of persistent nausea and vomiting with runny nose and dizziness. She is seen and examined sitting up in the chair after having been in the bathroom. She states she had a bowel movement and was standing at the sink brushing her hair when she felt acutely light headed like she was going to pass out. Vital were obtained blood pressure was 145/88 heart rate 58. Telemetry tracings were unremarkable revealing rates in the 50-60 range throughout the episode. She denies chest pain or shortness of breath. DIAGNOSTICS EKG reveals intraventricular conduction delay, wide QRS, atrial fibrillation and poor R-wave progression. Heart rate is 60.. Chest xray developing multi-focal right lung infiltrate. Laboratory reviewed, WBC 11.1, hemoglobin 11.4, platelets 288, sodium 144, potassium 4.4, creatinine 1.23, magnesium 1.4, troponin 0.015, proBNP 6040, TSH 1.68. Current cardiac medications include entresto 24/26 twice a day, Lopressor 50 mg daily, Lasix 40 mg 3 times a day, savaysa 60 mg daily, atorvastatin 40 mg daily and aspirin 81 mg daily. REVIEW OF SYSTEMS At the time of my exam: CONSTITUTIONAL: Denies fever or chills. CARDIOVASCULAR: Denies chest pain, shortness of breath, orthopnea, PND or palpitations. RESPIRATORY: Denies cough. GASTROINTESTINAL: Complains of nausea. Denies abdominal pain, diarrhea, constipation or vomiting. MUSCULOSKELETAL: Denies myalgias. NEUROLOGIC: Complains of feeling lightheaded. Denies numbness, tingling or weakness. ENDOCRINE: Denies fatigue, weight change, polydipsia or polyurina. GENITOURINARY: Denies burning, hematuria or urgency with micturation. HEMATOLOGIC: Denies history of anemia or bleeding. PHYSICAL EXAMINATION Blood pressure 145/81 heart rate 60 afebrile and maintaining oxygen saturation on room air. CONSTITUTIONAL: No apparent distress. HEENT: Head is normocephalic. Pupils are equal, round. Sclerae anicteric. Mucous membranes of the mouth are moist. No JVD. No carotid bruit. CHEST EXAMINATION: Lungs are clear to auscultation. No chest wall tenderness is noted on palpation or with deep breathing. HEART EXAMINATION: Irregular rate and rhythm. S1, S2 heard. Systolic ejection murmur at the left sternal border and apex, no gallops or rub. ABDOMEN: Soft, nontender. Positive bowel sounds. EXTREMITIES: 2+ peripheral pulses, chronic discoloration from venous stasis, 1+ pitting lower extremity edema and no calf tenderness. NEUROLOGIC EXAMINATION: Patient is awake, alert and oriented x3. ASSESSMENT Near syncope secondary to vasovagal reaction after having a bowel movement Pneumonia Urinary tract infection Leukocytosis History of stress induced cardiomyopathy, improved on repeat echo from today. Chronic persistent atrial fibrillation on termite exterminator anti-coagulation History of coronary artery disease s/p PCI Hypertension Dyslipidemia Diabetes mellitus PLAN Repeat echocardiogram reveals improved LV systolic function with EF 45-50%. Continue entresto, lopressor, lasix, sayvasa, atorvastatin and aspirin as previously ordered. Ongoing medical management. Thank you kindly for this consultation. Nurse Practitioner note has been reviewed, I agree with a documented findings and plan of care. Patient was seen and examined. Past Medical History Past Medical History: Atrial Fibrillation, Heart Failure, Diabetes Mellitus, Eye Disorder, Hyperlipidemia, Osteoarthritis (OA), Pneumonia, Skin Disorder, Vascular Disorder Additional Past Medical History / Comment(s): Chronic Venous Stasis BLE w/ chronic ulceration of the left lower extremity, current small area still left leg, CAD W/ coronary stenting Rt PDA 2013. History of kidney stones. Pacemaker (Brand:ST DAPHNE). HAS CATARACT LT. WOUNDS LLE, USING SILVADENE CREAM. EDEMA BLE. seeing Dr Calderon r/t kidney function. Small wound LLE. History of Any Multi-Drug Resistant Organisms: None Reported Past Surgical History: Cardiac Ablation, Heart Catheterization, Heart Catheterization With Stent, Hysterectomy, Pacemaker, Tubal Ligation Additional Past Surgical History / Comment(s): states has had mult sx on veins left leg, [place] with cardioversion, varicose vein stripping, one cardiac stent, rt cataract, kidney stone sx, LLE surgery with stent and skin grafting. Past Anesthesia/Blood Transfusion Reactions: No Reported Reaction Additional Past Anesthesia/Blood Transfusion Reaction / Comment(s): PONV 40 PLUS YEARS AGO, AFTER REMOVAL KIDNEY STONE. Date of Last Stent Placement:: November 2013 Type of Cardiac Device: Permanent Pacemaker Device Placement Date:: 10/30/2017 Past Psychological History: No Psychological Hx Reported Additional Psychological History / Comment(s): . Smoking Status: Never smoker Past Alcohol Use History: None Reported Past Drug Use History: None Reported - Past Family History Father History Unknown: Yes Family Medical History: No Reported History Additional Family Medical History / Comment(s): Aneurysm, apssed in 2000. Mother Family Medical History: Cancer Additional Family Medical History / Comment(s): Bladder and has since passed. Medications and Allergies Home Medications Medication Instructions Recorded Confirmed Type Aspirin EC [Ecotrin Low Dose] 81 mg PO DAILY 02/27/14 04/13/19 History Edoxaban Tosylate [Savaysa] 60 mg PO DAILY 07/20/16 04/13/19 History Atorvastatin [Lipitor] 40 mg PO HS 10/22/17 04/13/19 History metFORMIN HCL [Glucophage] 850 mg PO TID 10/30/17 04/13/19 History Acetaminophen Tab [Tylenol] 650 mg PO Q6HR PRN tab 11/01/17 04/13/19 Rx Insulin Glargine,Hum.rec.anlog 34 units SQ HS 12/16/17 04/13/19 History [Toujeo Solostar] Liraglutide [Victoza 2-Ishan] 1.8 mg SQ DAILY 12/16/17 04/13/19 History Furosemide [Lasix] 40 mg PO TID 06/04/18 04/13/19 History Ferrous Sulfate [Feosol] 325 mg PO DAILY 01/19/19 04/13/19 History Allopurinol [Zyloprim] 100 mg PO DAILY 03/25/19 04/13/19 History Calcitriol 0.25 mcg PO WE 03/25/19 04/13/19 History Metoprolol Tartrate [Lopressor] 50 mg PO DAILY 03/25/19 04/13/19 History Ergocalciferol [Vitamin D2] 50,000 unit PO WE 04/13/19 04/13/19 History Ranitidine HCl [Zantac] 150 mg PO DAILY 04/13/19 04/13/19 History Sacubitril/Valsartan [Entresto 24 1 tab PO BID 04/13/19 04/13/19 History mg-26 mg Tablet] Allergies Allergy/AdvReac Type Severity Reaction Status Date / Time Iodinated Contrast Media Allergy Severe THROAT Verified 04/13/19 16:05 [Iodinated Contrast Media - SWELLING Oral and] iodine Allergy Severe THROAT Verified 04/13/19 16:05 SWELLING, RASH shellfish derived Allergy Severe THROAT Verified 04/13/19 16:05 SWELLING, RASH cefazolin sodium Allergy Dyspnea Verified 04/13/19 16:05 [From Kefzol] Latex, Natural Rubber Allergy Rash/Hives Verified 04/13/19 16:05 levofloxacin [From Levaquin] Allergy Rash/Hives Verified 04/13/19 16:05 piperacillin sodium Allergy THROAT Verified 04/13/19 16:05 [From Zosyn] SWELL, RASH tazobactam sodium Allergy THROAT Verified 04/13/19 16:05 [From Zosyn] SWELL, RASH verapamil AdvReac Severe Hallucinati Verified 04/13/19 16:05 ons seafood Allergy Severe throat Uncoded 03/25/19 14:26 swelling Physical Exam Vitals: Vital Signs Temp Pulse Pulse Pulse Resp BP BP 04/14/19 12:41 97.9 F 60 20 145/81 04/14/19 09:32 97.9 F 58 L 18 145/88 04/14/19 05:00 98 F 55 L 18 130/74 04/13/19 20:59 98.1 F 60 20 114/53 04/13/19 17:42 98.8 F 59 L 20 150/77 04/13/19 16:00 60 24 148/66 04/13/19 15:30 148/66 04/13/19 15:00 63 22 139/62 04/13/19 14:30 60 27 H 143/115 04/13/19 14:00 60 12 137/62 04/13/19 13:30 60 29 H 137/62 04/13/19 13:28 21 Pulse Ox 04/14/19 12:41 96 04/14/19 09:32 96 04/14/19 05:00 95 04/13/19 20:59 94 L 04/13/19 17:42 95 04/13/19 16:00 98 04/13/19 15:30 04/13/19 15:00 95 04/13/19 14:30 92 L 04/13/19 14:00 93 L 04/13/19 13:30 94 L 04/13/19 13:28 Intake and Output 04/13/19 04/14/19 04/14/19 22:59 06:59 14:59 Intake Total 1200 600 120 Balance 1200 600 120 Intake: Intake, IV Titration 600 Amount Magnesium Sulfate-D5w Pmx 100 1 gm In Dextrose/Water 1 100ml.bag @ 100 mls/hr IVPB Q1H [facility] Rx#: [id number] Vancomycin 1,750 mg In 500 Sodium Chloride 0.9% 500 ml 500 ml @ 167 mls/hr IVPB Q24H [facility] Rx#: [id number] Oral 600 600 120 Other: Voiding Method Toilet # Voids 3 2 Weight 114.305 kg 114.9 kg 114.9 kg Results 04/13/19 13:30 04/13/19 13:30 Cardiac Enzymes 04/13/19 04/13/19 Range/Units 13:30 13:30 AST 21 (14-36) U/L Troponin I 0.015 (0.000-0.034) ng/mL Coagulation 04/13/19 Range/Units 13:30 PT 14.9 H (9.0-12.0) sec APTT 29.7 (22.0-30.0) sec CBC 04/13/19 Range/Units 13:30 WBC 11.1 H (3.8-10.6) k/uL RBC 4.16 (3.80-5.40) m/uL Hgb 11.4 (11.4-16.0) gm/dL Hct 37.1 (34.0-46.0) % Plt Count 288 (150-450) k/uL Comprehensive Metabolic Panel 04/13/19 Range/Units 13:30 Sodium 144 (137-145) mmol/L Potassium 4.4 (3.5-5.1) mmol/L Chloride 108 H (98-107) mmol/L Carbon Dioxide 22 (22-30) mmol/L BUN 38 H (7-17) mg/dL Creatinine 1.23 H (0.52-1.04) mg/dL Glucose 135 H (74-99) mg/dL Calcium 9.2 (8.4-10.2) mg/dL AST 21 (14-36) U/L ALT 17 (9-52) U/L Alkaline Phosphatase 69 (38-126) U/L Total Protein 6.8 (6.3-8.2) g/dL Albumin 4.0 (3.5-5.0) g/dL Current Medications Generic Name Dose Route Start Last Admin Trade Name Freq PRN Reason Stop Dose Admin Acetaminophen 650 mg 04/13/19 14:59 Tylenol Tab PO Q6HR PRN Mild Pain Aspirin 81 mg 04/14/19 09:00 04/14/19 08:00 Aspirin PO 81 mg DAILY [facility] Administration Atorvastatin Calcium 40 mg 04/13/19 21:00 04/13/19 20:58 Lipitor PO 40 mg HS [facility] Administration Edoxaban 60 mg 04/14/19 09:00 04/14/19 08:00 Savaysa PO 60 mg DAILY [facility] Administration Furosemide 40 mg 04/14/19 16:00 04/14/19 13:04 Lasix PO 40 mg TID [facility] Administration Vancomycin HCl 1,750 mg/ 500 mls @ 167 mls/hr 04/14/19 10:00 04/14/19 09:52 Sodium Chloride IVPB 167 mls/hr Q24H [facility] Administration Insulin Detemir 34 unit 04/13/19 21:00 04/13/19 20:58 Levemir SQ 34 unit HS [facility] Administration Metformin HCl 850 mg 04/13/19 22:00 04/14/19 08:00 Glucophage PO 850 mg TID [facility] Administration Metoprolol Tartrate 50 mg 04/14/19 11:45 04/14/19 13:01 Lopressor PO 50 mg DAILY [facility] Administration Miscellaneous Information 1 each 04/13/19 14:53 Pneumonia Protocol Utilized PO ONCE PRN Per Protocol Victoza (Liraglutide 1.8 mg 04/14/19 14:00 04/14/19 13:01 ) 1.8 Mg Sq Inj SQ 1.8 mg DAILY [facility] Administration Sacubitril/Valsartan 1 each 04/14/19 09:00 04/14/19 09:51 Entresto 24 Mg-26 Mg Tablet PO 1 each BID [facility] Administration Intake and Output 04/13/19 04/14/19 04/14/19 22:59 06:59 14:59 Intake Total 1200 600 120 Balance 1200 600 120 Intake: Intake, IV Titration 600 Amount Magnesium Sulfate-D5w Pmx 100 1 gm In Dextrose/Water 1 100ml.bag @ 100 mls/hr IVPB Q1H [facility] Rx#: [id number] Vancomycin 1,750 mg In 500 Sodium Chloride 0.9% 500 ml 500 ml @ 167 mls/hr IVPB Q24H [facility] Rx#: [id number] Oral 600 600 120 Other: Voiding Method Toilet # Voids 3 2 Weight 114.305 kg 114.9 kg 114.9 kg Patient Weight 04/15/19 06:59 Weight 114.9 kg 04/13/19 13:30 04/13/19 13:30
[2019-04-14] MEDS ORDERED: VANCOMYCIN 1,750 MG in SODIUM CHLORIDE 0.9% 500 ML 500 ML IVPB SCH (16:00)
[2019-04-14 17:38] LABS: Glucose,Whole Blood 106 mg/dL (75-99)
[2019-04-14] MEDS: CEFEPIME 2 GM in SODIUM CHLORIDE 0.9% 100 ML IVPB SCH ×2 (18:00→23:53)
[2019-04-14 19:45] LABS: Glucose,Whole Blood 134 mg/dL (75-99)
--- NOTE | 2019-04-14 20:34 | P.CON ---
Consult Note - . Consult date: 04/14/19 Assessment/Plan:: This is a 68-year-old female with complaints of shortness of breath and vomiting. She also has a cough is nonproductive. She states she feels hot and cold. She vomited twice at home and then contacted her doctor and was told spell. She also states she had a fluttering feeling in her chest. She does have history of atrial fibrillation status post pacemaker. 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 Ralph, today for echocardiogram. She was also scheduled to see Dr. Romo yesterday as she was following up from her recent hospitalization which time she was seen for gastroenteritis, acute systolic heart failure, and hematuria. Patient also has significant history of coronary artery disease, chronic kidney disease stage III, diabetes mellitus type 2, chronic atrial fibrillation status post pacemaker on chronic anticoagulation with Savaysa. Underlying to admission, patient was noted to have a drop in her ejection fraction from 50% 25-30% thus the need to follow up with Dr. Ralph. Patient has been afebrile, initial white count of 11.1, BUN 38 and creatinine 1.28, albumin 4.0, influenza testing negative. Urinalysis was nitrate positive, leukoesterase large, bacteria occasional. Urine culture and blood culture in progress. Sputum cultures are collected. Chest x-ray showed cardiomegaly with suggestion of multifocal right lung acute infiltrate and/or atelectasis. Patient was started on cefepime and vancomycin and admitted to the [facility] floor. This morning, in general she states she is feeling much better from yesterday. While she was in the bathroom this morning she became dizzy. She did have one loose stool this morning. No diarrhea. There are consults in place with cardiology and pulmonary medicine. Patient has a chronic peripheral vascular disease ulcer to the posterior left calf under the care of Dr. Ren. Regarding antibiotic ALLERGIES, patient has ALLERGY to penicillin which she recognizes as Zosyn that causes throat swelling and she states she has been told that she is not able to take this. Levaquin also has caused throat swelling. Kefzol is listed as an ALLERGY causing dyspnea which patient is unable to confirm. Please see the consult note as dictated by nurse practitioner Mrs. Kari Martini.If the patient has had a recent hospitalization where she was having some significant illness and was with evidence of worsening of her cardiomyopathy and evidence of some bleeding. She now presents with concerns to pneumonia and urinary tract infection. Antibiotic therapy has been initiated with cefepime and vancomycin pending further culture data. The x-ray does show evidence of the new right lung infiltrate. There is evidence of the chronic ulceration to the left leg that has been having some improvement after care of by Dr. Dumont and some grafting that was performed. Local wound care will be continued, however will decrease from a high doses silver to a collagen product to see if this cannot be helpful in the healing of this ulceration. Progress and cultures will further help direct the antibiotic therapy. I agree with evaluation, assessment and plan as dictated by nurse practitioner Mrs. Kari Martini.
[2019-04-14] MEDS: INSULIN DETEMIR (LEVEMIR) 100 UNIT/ML SYR SQ SCH (21:19)
[2019-04-14] MEDS: ATORVASTATIN 40 MG TAB PO SCH (21:19)
[2019-04-14 23:55] VITALS: RESP 16
[2019-04-15 01:34] LABS: Hemoglobin A1C 7.8 % (4.0-6.0)
[2019-04-15 05:44] VITALS: BP 115/65; TEMP 97.6
[2019-04-15 06:59] LABS: Glucose,Whole Blood 71 mg/dL (75-99)
[2019-04-15 07:58] LABS: Glucose,Whole Blood 76 mg/dL (75-99)
[2019-04-15] MEDS: SACUBITRIL/VALSARTAN 24 MG-26 MG TABLET PO SCH (09:35)
[2019-04-15] MEDS: ASPIRIN 81 MG PO SCH (09:35)
[2019-04-15] MEDS: FUROSEMIDE 40 MG TAB PO SCH ×2 (09:35→18:04)
[2019-04-15] MEDS: METOPROLOL TARTRATE 50 MG TAB PO SCH (09:35)
[2019-04-15] MEDS: CEFEPIME 2 GM in SODIUM CHLORIDE 0.9% 100 ML IVPB SCH (09:35)
[2019-04-15] MEDS: EDOXABAN TOSYLATE 60 MG TABLET PO SCH (09:36)
[2019-04-15] MEDS: VICTOZA 1.8 MG SQ SCH (09:36)
--- NOTE | 2019-04-15 10:21 | XR ---
EXAMINATION TYPE: XR chest 2V DATE OF EXAM: 04/15/2019 COMPARISON: 04/13/2019 TECHNIQUE: PA and lateral views submitted. HISTORY: Atelectasis versus pneumonia FINDINGS: Heart is enlarged and there is a cardiac device. No evidence of pneumothorax. Improving aeration in t he right upper lobe. Chronic rib deformities are seen. Atherosclerotic change aorta. Diffuse osteopen ia. IMPRESSION: 1. Improving right upper lobe infiltrate
[2019-04-15] MEDS: VANCOMYCIN 1,750 MG in SODIUM CHLORIDE 0.9% 500 ML 500 ML IVPB SCH (10:27)
--- NOTE | 2019-04-15 10:46 | P.PN ---
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 She presented with nausea and vomiting. She follows in the office with Dr. Ralph. We have been asked to see him in consultation for hx of cardiomyopathy. She recently underwent a cardiac catheterization with Dr. Ralph in January 2019 revealing calcified coronary arteries, mild to moderate disease involving the LAD and the RCA, patent stent at this site of prior stenting and evidence of pulmonary hypertension. She came back to the hospital in mid-March with abnormal troponins, vomiting and diarrhea and was found to have an acute cardiomyopathy with EF 25-30%. Thought to be a stress induced cardiomyopathy. She was started on appropriate heart failure medications. Repeat echo performed yesterday revealed improved LV systolic function with ejection fraction 45-50%. Blood pressure 115/65 heart rate 60 afebrile maintaining oxygen saturation on room air. Laboratory data reviewed, creatinine 1.08. Currently maintained on aspirin 81 mg daily, atorvastatin 40 mg daily, so we so 60 mg daily, Lasix 40 mg 3 times a day, metoprolol 50 mg daily and entresto 24/26 mg BID. She is seen and examined sitting up in bed in no acute distress. She states overall she is feeling much better than yesterday. She has had no further symptoms of dizziness or near syncope. PHYSICAL EXAMINATION CONSTITUTIONAL: No apparent distress. HEENT: Head is normocephalic. Pupils are equal, round. Sclerae anicteric. Mucous membranes of the mouth are moist. No JVD. No carotid bruit. CHEST EXAMINATION: Lungs are clear to auscultation. No chest wall tenderness is noted on palpation or with deep breathing. HEART EXAMINATION: Irregular rate and rhythm. S1, S2 heard. Systolic ejection murmur at the left sternal border and apex, no gallops or rub. EXTREMITIES: 2+ peripheral pulses, DANDY hose in place, 1+ pitting lower extremity edema and no calf tenderness. ASSESSMENT Near syncope secondary to vasovagal reaction after having a bowel movement Pneumonia Urinary tract infection Leukocytosis History of stress induced cardiomyopathy, improved on repeat echo from today. Chronic persistent atrial fibrillation on half-way anti-coagulation History of coronary artery disease s/p PCI Hypertension Dyslipidemia Diabetes mellitus PLAN Continue current medical regimen. Follow up with Dr. Ralph upon discharge. Nurse Practitioner note has been reviewed, I agree with a documented findings and plan of care. Patient was seen and examined. Objective - Vital Signs Vital signs: Vital Signs Temp 97.6 F 04/15/19 05:00 Pulse 60 04/15/19 05:00 Resp 16 04/15/19 05:00 BP 115/65 04/15/19 05:00 Pulse Ox 97 04/15/19 05:00 Intake & Output 04/14/19 04/15/19 04/15/19 18:59 06:59 18:59 Intake Total 120 1300 Balance 120 1300 Weight 114.9 kg 117.027 kg Intake: Intake, IV Titration 100 Amount Cefepime 2 gm In Sodium 100 Chloride 0.9% 100 ml @ 200 mls/hr IVPB Q8HR [facility] Rx#:[id number] Oral 120 1200 Other: Voiding Method Toilet # Voids 2 4 - Labs CBC & Chem 7: 04/13/19 13:30 04/15/19 09:22 Labs: Abnormal Lab Results - Last 24 Hours (Table) 04/13/19 04/14/19 04/14/19 Range/Units 13:30 11:12 17:36 Creatinine (0.52-1.04) mg/dL POC Glucose (mg/dL) 106 H (75-99) mg/dL Hemoglobin A1c 7.8 H (4.0-6.0) % Procalcitonin 0.10 H (0.02-0.09) ng/mL 04/14/19 04/15/19 04/15/19 Range/Units 19:44 06:57 09:22 Creatinine 1.08 H (0.52-1.04) mg/dL POC Glucose (mg/dL) 134 H 71 L (75-99) mg/dL Hemoglobin A1c (4.0-6.0) % Procalcitonin (0.02-0.09) ng/mL Microbiology - Last 24 Hours (Table) 04/13/19 16:03 Urine Culture - Preliminary Urine,Voided Gram Neg Bacilli 04/13/19 15:21 Blood Culture - Preliminary Blood No Growth after 24 hours
[2019-04-15] MEDS ORDERED: VANCOMYCIN 1,750 MG in SODIUM CHLORIDE 0.9% 500 ML 500 ML IVPB SCH (11:00)
[2019-04-15 11:30] LABS: Glucose,Whole Blood 112 mg/dL (75-99)
[2019-04-15] MEDS: metFORMIN 850 MG TAB PO SCH ×2 (12:12→18:04)
--- NOTE | 2019-04-15 12:16 | P.PN ---
Subjective Patient states improvement. Patient had evaluation by cardiology cleared. Continue consultation with infectious disease and pulmonology. Noted im provement on echo from 20% to 45% EF. Patient states she has improvement noted further vomiting or diarrhea. Patient continues on vancomycin and cefepime Objective - Vital Signs Vital signs: Vital Signs Temp 97.6 F 04/15/19 05:00 Pulse 60 04/15/19 08:30 Resp 16 04/15/19 08:30 BP 115/65 04/15/19 05:00 Pulse Ox 97 04/15/19 05:00 Intake & Output 04/14/19 04/15/19 04/15/19 18:59 06:59 18:59 Intake Total 120 1300 Balance 120 1300 Weight 114.9 kg 117.027 kg Intake: Intake, IV Titration 100 Amount Cefepime 2 gm In Sodium 100 Chloride 0.9% 100 ml @ 200 mls/hr IVPB Q8HR [facility] Rx#:[id number] Oral 120 1200 Other: Voiding Method Toilet Toilet # Voids 2 4 - Constitutional General appearance: Present: mild distress - EENT Eyes: Present: PERRLA Ears: bilateral: normal - Neck Neck: Present: normal ROM - Respiratory Respiratory: bilateral: diminished - Cardiovascular Rhythm: regular Abnormal Heart Sounds: Present: systolic murmur - Integumentary Integumentary Comment(s): Venous stasis discoloration of lower extremity Integumentary: Present: flushed - Neurologic Neurologic: Present: CNII-XII intact - Musculoskeletal Musculoskeletal: Present: generalized weakness - Psychiatric Psychiatric: Present: A&O x's 3, appropriate affect, intact judgment & insight - Labs CBC & Chem 7: 04/13/19 13:30 04/15/19 09:22 Labs: Abnormal Lab Results - Last 24 Hours (Table) 04/13/19 04/14/19 04/14/19 Range/Units 13:30 11:12 17:36 Creatinine (0.52-1.04) mg/dL POC Glucose (mg/dL) 106 H (75-99) mg/dL Hemoglobin A1c 7.8 H (4.0-6.0) % Procalcitonin 0.10 H (0.02-0.09) ng/mL 04/14/19 04/15/19 04/15/19 Range/Units 19:44 06:57 09:22 Creatinine 1.08 H (0.52-1.04) mg/dL POC Glucose (mg/dL) 134 H 71 L (75-99) mg/dL Hemoglobin A1c (4.0-6.0) % Procalcitonin (0.02-0.09) ng/mL 04/15/19 Range/Units 11:27 Creatinine (0.52-1.04) mg/dL POC Glucose (mg/dL) 112 H (75-99) mg/dL Hemoglobin A1c (4.0-6.0) % Procalcitonin (0.02-0.09) ng/mL Microbiology - Last 24 Hours (Table) 04/13/19 16:03 Urine Culture - Preliminary Urine,Voided Gram Neg Bacilli 04/13/19 15:21 Blood Culture - Preliminary Blood No Growth after 24 hours - Imaging and Cardiology Chest x-ray: report reviewed Improving infiltrate Assessment and Plan Plan: Assessment Pneumonia patient had hospital exposure 2 weeks ago possible hospital-acquired v [facility] community-acquired Urinary tract infection gram-negative bacilli Acute on chronic congestive heart failure systolic dysfunction EF 45-50% Chronic venous stasis with ulcerations patient's to lower extremities Coronary disease with stents Atrial fibrillation chronic persistent Pacemaker Chronic renal failure stage III Diabetes type 2 Gastroenteritis Plan Continue consultation with pulmonology infectious disease Antibiotic coverage
--- NOTE | 2019-04-15 12:21 | P.PN ---
Subjective Progress Note Date: 04/15/19 Principal diagnosis: Acute URI, acute urine tract infection, doubt right upper lobe pneumonia This is a 68-year-old female, was recently admitted to the hospital on 03/25/2019, and she was discharged home on 03/31/2019. Her initial presentation back then was mostly a presentation of nausea vomiting diarrhea, and chest pain. 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 Patient also had symptoms of gastroenteritis, chest pains with elevated troponin, chronic persistent atrial fibrillation, systolic congestive heart failure, type 2 diabetes, hyperlipidemia, coronary artery disease and previous stents, pacemaker implantation, and she had chronic renal failure stage III. Patient was discharged home with plans to follow-up with cardiology, and she was supposed to see the home service advisor today for repeat echocardiogram for further assessment of her LV dysfunction. At any rate the patient presented yesterday to the emergency room with mostly multiple complaints including nausea vomiting cough, cough is described as dry cough, fevers and chills, and her symptoms have been going on since last Saturday. Patient had a chest x-ray on admission showed a very limited area of infiltrate in the right upper lobe, although her most of her symptoms were mostly GI in nature, patient was admitted with the impression of right upper lobe pneumonia. CBC showed no evidence of leukocytosis. Her electrolytes were basically normal, renal profile is abnormal with a BUN of 56 creatinine 1.64 and this is about her baseline. Patient was also found to have urinary tract infection with positive pyuria and bacteriuria in the urine. And positive urine nitrites and urine leukocyte esterase. Considering her multiple ALLERGIES to different antibiotics, patient was treated with vancomycin and cefepime. Patient was also cautiously hydrated over the last 12 hours, and today during my evaluation, patient is feeling significantly better. She has some dry hacking cough, no further episodes of nausea, no vomiting, no abdominal pain, no melena, no hematemesis, denies any dysuria frequency or urgency denies any hematuria. Again patient made a dramatic clinical improvement basically overnight. Patient was reevaluated today on 04/15/2019, feeling much better, no cough no fever no chills no hemoptysis no chest pain. Chest x-ray showed complete clearance of the infiltrate or atelectasis in the right upper lobe and her pro calcitonin level was basically normal. Her urine culture is positive for gram- negative bacilli. Final identification is pending. Clinically the patient is feeling significantly better. Objective - Vital Signs Vital signs: Vital Signs Temp 97.6 F 04/15/19 05:00 Pulse 60 04/15/19 08:30 Resp 16 04/15/19 08:30 BP 115/65 04/15/19 05:00 Pulse Ox 97 04/15/19 05:00 Intake & Output 04/14/19 04/15/19 04/15/19 18:59 06:59 18:59 Intake Total 120 1300 Balance 120 1300 Weight 114.9 kg 117.027 kg Intake: Intake, IV Titration 100 Amount Cefepime 2 gm In Sodium 100 Chloride 0.9% 100 ml @ 200 mls/hr IVPB Q8HR [facility] Rx#:[id number] Oral 120 1200 Other: Voiding Method Toilet Toilet # Voids 2 4 - Exam Physical Exam: Revealed a 68-year-old female, in no distress. On room air. Head: Atraumatic, normocephalic. HEENT:[Neck is supple.] [No neck masses.] [No thyromegaly.] [No JVD.] Chest: [Clear throughout, no crackles, no rhonchi, no wheezes.] Cardiac Exam: [Normal S1 and S2, no S3 gallop, no murmur.] Abdomen: [Soft, nontender, no megaly, no rebound, no guarding, normal bowel sounds.] Extremities: [No clubbing, trace of bipedal edema, no cyanosis.] Patient has chronic venous stasis changes in lower extremities, and she has a skin graft in the left lower extremity with minimal ulceration on the posterior left calf region. Neurological Exam: [No focal neurologic deficit.] Alert and oriented 3. Psychiatric: Normal mood, affect and normal mental status examination. Skin: Skin graft noted in the left lower extremity with superficial ulceration. Lymphatics: No lymphadenopathy. - Labs CBC & Chem 7: 04/13/19 13:30 04/15/19 09:22 Labs: Abnormal Lab Results - Last 24 Hours (Table) 04/13/19 04/14/19 04/14/19 Range/Units 13:30 11:12 17:36 Creatinine (0.52-1.04) mg/dL POC Glucose (mg/dL) 106 H (75-99) mg/dL Hemoglobin A1c 7.8 H (4.0-6.0) % Procalcitonin 0.10 H (0.02-0.09) ng/mL 04/14/19 04/15/19 04/15/19 Range/Units 19:44 06:57 09:22 Creatinine 1.08 H (0.52-1.04) mg/dL POC Glucose (mg/dL) 134 H 71 L (75-99) mg/dL Hemoglobin A1c (4.0-6.0) % Procalcitonin (0.02-0.09) ng/mL 04/15/19 Range/Units 11:27 Creatinine (0.52-1.04) mg/dL POC Glucose (mg/dL) 112 H (75-99) mg/dL Hemoglobin A1c (4.0-6.0) % Procalcitonin (0.02-0.09) ng/mL Microbiology - Last 24 Hours (Table) 04/13/19 16:03 Urine Culture - Preliminary Urine,Voided Gram Neg Bacilli 04/13/19 15:21 Blood Culture - Preliminary Blood No Growth after 24 hours Assessment and Plan Assessment: Impression: 1 acute URI and acute urinary tract infection, strongly doubt right upper lobe pneumonia based on the dramatic improvement on the chest x-ray and based on the fact that her pro calcitonin level is basically normal. 2 suspect acute urinary tract infection secondary to gram-negative bacilli. Final identification is pending. 3 multiple GI symptoms could very well be related to her urinary tract infection. 4 history of cardiomyopathy and LV dysfunction based on recent echocardiogram. 5 history of chronic atrial fibrillation. 6 history of chronic ulceration of left lower extremity. 7 Type 2 diabetes 8 degenerative joint disease Recommendation: Continue present treatment plan, infectious disease to address oral antibiotics, and possible discharge planning in the next 24 hours. Again from my perspective I strongly doubt the right upper lobe pneumonia. Chest x- ray on admission was reviewed, and the follow-up chest x-ray showed basically complete clearance of the right upper lobe abnormality. Time with Patient: Less than 30
--- NOTE | 2019-04-15 16:28 | P.DS ---
Providers Date of admission: 04/13/19 14:53 Expected date of discharge: 04/15/19 Attending physician: Edgardo Juarez Consults: 04/13/19 14:53 Consult Physician Routine Consulting Provider: Michael Beard Consult Reason/Comments: pneumonia Do you want consulting provider notified?: Yes 04/13/19 19:57 Consult Physician Routine Consulting Provider: Mark Mendoza Consult Reason/Comments: Per MD due to multple allergies to medicaitons, PNA, Do you want consulting provider notified?: Yes, Notify in am Consult Physician Routine Consulting Provider: Meng Aviles Consult Reason/Comments: Cardiac history, MD request Do you want consulting provider notified?: Yes, Notify in am Primary care physician: Edgardo Juarez Hospital Course: 68-year-old female was admitted to the emergency room with complaints of a cough vomiting nasal congestion sore throat. Patient was evaluated emergency room admitted for all possible pneumonia. Patient found to have urinary tract infection. Patient was evaluated by cardiology echo repeated improved from last exam. Infectious disease Dr. Mendoza consult the he has cleared the patient for discharge and has sent prescription to pharmacy. Evaluated pulmonology they have cleared here for discharge state and dictation made doubt that it was pneumonia which of the diagnosis UTI as reason for symptoms. Assessment urinary tract infection gram-negative bacilli pneumonia rolled out acute and chronic congestive heart failure acute systolic dysfunction with ejection fraction of 45 to 50% chronic venous stasis of ulcerations to lower extremities coronary disease with stents chronic persistent atrial fibrillation history of ablation pacemaker chronic renal failure stage III diabetes type II Plan prescription set for Omnicef patient follow up with family physician Dr. Edgardo Juarez follow up with cardiology Patient Condition at Discharge: Fair Plan - Discharge Summary Discharge Rx Participant: No New Discharge Prescriptions: New Cefdinir [Omnicef] 300 mg PO Q12HR #6 capsule Continue Aspirin EC [Ecotrin Low Dose] 81 mg PO DAILY Edoxaban Tosylate [Savaysa] 60 mg PO DAILY Atorvastatin [Lipitor] 40 mg PO HS metFORMIN HCL [Glucophage] 850 mg PO TID Acetaminophen Tab [Tylenol] 650 mg PO Q6HR PRN tab PRN Reason: Mild Pain Insulin Glargine,Hum.rec.anlog [Toujeo Solostar] 34 units SQ HS Liraglutide [Victoza 2-Ishan] 1.8 mg SQ DAILY Furosemide [Lasix] 40 mg PO TID Ferrous Sulfate [Iron (65 MG Elemental)] 325 mg PO DAILY Metoprolol Tartrate [Lopressor] 50 mg PO DAILY Allopurinol [Zyloprim] 100 mg PO DAILY Calcitriol 0.25 mcg PO WE Sacubitril/Valsartan [Entresto 24 mg-26 mg Tablet] 1 tab PO BID Ergocalciferol [Vitamin D2 (DRISDOL)] 50,000 unit PO WE Ranitidine HCl [Zantac] 150 mg PO DAILY Discharge Medication List Aspirin EC [Ecotrin Low Dose] 81 mg PO DAILY 02/27/14 [History] Edoxaban Tosylate [Savaysa] 60 mg PO DAILY 07/20/16 [History] Atorvastatin [Lipitor] 40 mg PO HS 10/22/17 [History] metFORMIN HCL [Glucophage] 850 mg PO TID 10/30/17 [History] Acetaminophen Tab [Tylenol] 650 mg PO Q6HR PRN tab 11/01/17 [Rx] Insulin Glargine,Hum.rec.anlog [Toujeo Solostar] 34 units SQ HS 12/16/17 [History] Liraglutide [Victoza 2-Ishan] 1.8 mg SQ DAILY 12/16/17 [History] Furosemide [Lasix] 40 mg PO TID 06/04/18 [History] Ferrous Sulfate [Iron (65 MG Elemental)] 325 mg PO DAILY 01/19/19 [History] Allopurinol [Zyloprim] 100 mg PO DAILY 03/25/19 [History] Calcitriol 0.25 mcg PO WE 03/25/19 [History] Metoprolol Tartrate [Lopressor] 50 mg PO DAILY 03/25/19 [History] Ergocalciferol [Vitamin D2 (DRISDOL)] 50,000 unit PO WE 04/13/19 [History] Ranitidine HCl [Zantac] 150 mg PO DAILY 04/13/19 [History] Sacubitril/Valsartan [Entresto 24 mg-26 mg Tablet] 1 tab PO BID 04/13/19 [History] Cefdinir [Omnicef] 300 mg PO Q12HR #6 capsule 04/15/19 [Rx] Follow up Appointment(s)/Referral(s): Edgardo Juarez MD [Primary Care Provider] - 1-2 days Otis Rlaph MD [STAFF PHYSICIAN] - 2 Weeks
[2019-04-15 17:08] LABS: Glucose,Whole Blood 131 mg/dL (75-99)
[2019-04-15] MEDS ORDERED: CEFEPIME 2 GM in SODIUM CHLORIDE 0.9% 100 ML IVPB SCH (21:00)
== END 2019-04-15 19:16 | disposition home or self-care (01) | DRG 689 ==
LOC: EC 12:54 → 3NMEDONC 14:53
PROVIDERS: ADMIT Family Medicine; ATTEND Family Medicine
DX: N39.0 Urinary tract infection, site not specified (principal); I50.23 Acute on chronic systolic (congestive) heart failure; I13.0 Hypertensive heart and chronic kidney disease with heart failure and stage 1 through stage 4 chronic kidney disease, or unspecified chronic kidney disease; I42.9 Cardiomyopathy, unspecified; I48.19 Other persistent atrial fibrillation; L97.929 Non-pressure chronic ulcer of unspecified part of left lower leg with unspecified severity; L97.919 Non-pressure chronic ulcer of unspecified part of right lower leg with unspecified severity; E11.22 Type 2 diabetes mellitus with diabetic chronic kidney disease; E11.51 Type 2 diabetes mellitus with diabetic peripheral angiopathy without gangrene; E78.5 Hyperlipidemia, unspecified; I25.10 Atherosclerotic heart disease of native coronary artery without angina pectoris; I27.20 Pulmonary hypertension, unspecified; I45.9 Conduction disorder, unspecified; I87.8 Other specified disorders of veins; J06.9 Acute upper respiratory infection, unspecified; K52.9 Noninfective gastroenteritis and colitis, unspecified; M19.90 Unspecified osteoarthritis, unspecified site; N18.3 Chronic kidney disease, stage 3 (moderate); Z79.01 Long term (current) use of anticoagulants; Z79.82 Long term (current) use of aspirin; Z79.84 Long term (current) use of oral hypoglycemic drugs; Z79.899 Other long term (current) drug therapy; Z87.442 Personal history of urinary calculi; Z88.0 Allergy status to penicillin; Z88.1 Allergy status to other antibiotic agents; Z90.710 Acquired absence of both cervix and uterus; Z95.0 Presence of cardiac pacemaker; Z95.5 Presence of coronary angioplasty implant and graft; Z91.040 Latex allergy status; Z91.013 Allergy to seafood; Z91.041 Radiographic dye allergy status
CPT/HCPCS: 36415; 71046; 80053; 81001; 82565; 83036; 83735; 83880; 84145; 84443; 84484; 85025; 85610; 85730; 87040; 87077; 87086; 87186; 87449; 87502; 93005; 93306; 96361; 96365; 96368; 99285

== ENCOUNTER → 2019-08-04 | Outpatient (CLI) | payer MEDICARE, BC ==
--- NOTE | 2019-08-04 09:22 | XR ---
EXAMINATION TYPE: XR chest 2V DATE OF EXAM: 08/04/2019 COMPARISON: Chest x-ray April 15, 2019. HISTORY: Persistent cough for one week. TECHNIQUE: Frontal and lateral views of the chest are obtained. FINDINGS: There is no focal air space opacity, pleural effusion, or pneumothorax seen. The cardiac silhouette size remains enlarged with dual lead pacemaker and atherosclerotic thoracic aorta. Exagger ated thoracic kyphosis centered lower thoracic spine. Old right lateral mid rib fractures redemonstra tere. IMPRESSION: Cardiomegaly without acute pulmonary process.
== END | disposition home or self-care (01) ==
LOC: RADXRMAIN 08:57
PROVIDERS: ATTEND Family Medicine
DX: I51.7 Cardiomegaly (principal)
CPT/HCPCS: 71046

== ENCOUNTER 2020-06-22 10:32 | Observation (INO) | payer MEDICARE, BC ==
--- NOTE | 2020-06-22 11:03 | ED ---
SOB HPI - General Chief Complaint: Shortness of Breath Stated Complaint: abnormal EKG Time Seen by Provider: 06/22/20 10:35 Source: patient Mode of arrival: wheelchair Limitations: no limitations - History of Present Illness Initial Comments: 69-year-old female with past medical history of A. fib, heart failure, diabetes who presents to the emergency department with exertional dyspnea. Patient reports her symptoms have been going on for the past 3 days. She has noted a 10 pound weight gain as well as worsening lower extremity edema. She saw Dr. Juarez in office today who completed an EKG. He was concerned for abnormality and therefore transfer the patient into the emergency department for further evaluation. Reports that the patient see his Dr. Ralph. She denies history of DVT or PE. She is on Sayveysa and lasix. She has been taking all of her medications as directed. He denies any chest pain. No fevers or chills. Denies cough. No other alleviating, chart reader modifying factors - Related Data Home Medications Medication Instructions Recorded Confirmed Aspirin EC [Ecotrin Low Dose] 81 mg PO DAILY 02/27/14 06/22/20 Edoxaban Tosylate [Savaysa] 60 mg PO DAILY 07/20/16 06/22/20 Atorvastatin [Lipitor] 40 mg PO HS 10/22/17 06/22/20 metFORMIN HCL [Glucophage] 850 mg PO TID 10/30/17 06/22/20 Insulin Glargine,Hum.rec.anlog 37 units SQ HS 12/16/17 06/22/20 [Touherrera Solostar] Liraglutide [Victoza 2-Ishan] 1.8 mg SQ DAILY 12/16/17 06/22/20 Furosemide [Lasix] 40 mg PO TID 06/04/18 06/22/20 Ferrous Sulfate [Iron (65 MG 325 mg PO DAILY 01/19/19 06/22/20 Elemental)] Allopurinol [Zyloprim] 100 mg PO DAILY 03/25/19 06/22/20 calcitrioL [Calcitriol] 0.25 mcg PO WE 03/25/19 06/22/20 Ergocalciferol [Vitamin D2 50,000 unit PO WE 04/13/19 06/22/20 (DRISDOL)] Sacubitril/Valsartan [Entresto 24 1 tab PO BID 04/13/19 06/22/20 mg-26 mg Tablet] Metoprolol Succinate (ER) [Toprol 50 mg PO DAILY 06/22/20 06/22/20 Xl] Metoprolol Succinate [Toprol XL] 25 mg PO HS 06/22/20 06/22/20 Previous Rx's Medication Instructions Recorded Acetaminophen Tab [Tylenol] 650 mg PO Q6HR PRN tab 11/01/17 Allergies Allergy/AdvReac Type Severity Reaction Status Date / Time Iodinated Contrast Media Allergy Severe THROAT Verified 06/22/20 10:33 [Iodinated Contrast Media - SWELLING Oral and] iodine Allergy Severe THROAT Verified 06/22/20 10:33 SWELLING, RASH shellfish derived Allergy Severe THROAT Verified 06/22/20 10:33 SWELLING, RASH cefazolin sodium Allergy Dyspnea Verified 06/22/20 10:33 [From Kefzol] Latex, Natural Rubber Allergy Rash/Hives Verified 06/22/20 10:33 levofloxacin [From Levaquin] Allergy Rash/Hives Verified 06/22/20 10:33 piperacillin sodium Allergy THROAT Verified 06/22/20 10:33 [From Zosyn] SWELL, RASH tazobactam sodium Allergy THROAT Verified 06/22/20 10:33 [From Zosyn] SWELL, RASH verapamil AdvReac Severe Hallucinati Verified 06/22/20 10:33 ons seafood Allergy Severe throat Uncoded 06/22/20 10:33 swelling Review of Systems ROS Statement: Those systems with pertinent positive or pertinent negative responses have been documented in the HPI. ROS Other: All systems not noted in ROS Statement are negative. Past Medical History Past Medical History: Atrial Fibrillation, Heart Failure, Diabetes Mellitus, Eye Disorder, Hyperlipidemia, Osteoarthritis (OA), Pneumonia, Skin Disorder, Vascular Disorder Additional Past Medical History / Comment(s): Chronic Venous Stasis BLE w/ chronic ulceration of the left lower extremity, current small area still left leg, CAD W/ coronary stenting Rt PDA 2013. History of kidney stones. Pacemaker (Brand:ST DAPHNE). HAS CATARACT LT. WOUNDS LLE, USING SILVADENE CREAM. EDEMA BLE. seeing Dr Calderon r/t kidney function. Small wound LLE. History of Any Multi-Drug Resistant Organisms: None Reported Past Surgical History: Cardiac Ablation, Heart Catheterization, Heart Cath eterization With Stent, Hysterectomy, Pacemaker, Tubal Ligation Additional Past Surgical History / Comment(s): states has had mult sx on veins left leg, [place] with cardioversion, varicose vein stripping, one cardiac stent, rt cataract, kidney stone sx, LLE surgery with stent and skin grafting. Past Anesthesia/Blood Transfusion Reactions: No Reported Reaction Additional Past Anesthesia/Blood Transfusion Reaction / Comment(s): PONV 40 PLUS YEARS AGO, AFTER REMOVAL KIDNEY STONE. Date of Last Stent Placement:: November 2013 Type of Cardiac Device: Permanent Pacemaker Device Placement Date:: 10/30/2017 Past Psychological History: No Psychological Hx Reported Smoking Status: Never smoker Past Alcohol Use History: None Reported Past Drug Use History: None Reported - Past Family History Father History Unknown: Yes Family Medical History: No Reported History Additional Family Medical History / Comment(s): Aneurysm, apssed in 2000. Mother Family Medical History: Cancer Additional Family Medical History / Comment(s): Bladder and has since passed. General Exam Limitations: no limitations Course Vital Signs 06/22/20 06/22/20 10:33 13:02 Temperature 97.8 F Pulse Rate 60 60 Respiratory 16 16 Rate Blood Pressure 174/81 145/60 O2 Sat by Pulse 100 100 Oximetry Medical Decision Making - Medical Decision Making Upon arrival patient was placed into room 12. A thorough history and physical exam was performed. 12 lead EKG was performed. Laboratory studies were conducted. Patient anemic with a hemoglobin of 9.9. Lactic acid 2.1. Creatinine 1.6. BNP 5700. Chest x-ray demonstrates mild pulmonary vascular congestion. Discuss results with the patient. She was given a dose of Lasix in the emergency department. Did recommend hospitalization for cardiology consultation for which whe did agree to. Dr. Juarez does present to the emergency department and speaks with the patient himself. Patient is currently waiting on the floor - Lab Data Result diagrams: 06/22/20 10:56 06/22/20 10:56 Lab Results 06/22/20 06/22/20 06/22/20 Range/Units 10:56 10:56 10:56 WBC 7.4 (3.8-10.6) k/uL RBC 3.43 L (3.80-5.40) m/uL Hgb 9.9 L (11.4-16.0) gm/dL Hct 32.0 L (34.0-46.0) % MCV 93.3 (80.0-100.0) fL MCH 29.0 (25.0-35.0) pg MCHC 31.1 (31.0-37.0) g/dL RDW 16.4 H (11.5-15.5) % Plt Count 349 (150-450) k/uL MPV 7.2 Neutrophils % 70 % Lymphocytes % 19 % Monocytes % 5 % Eosinophils % 4 % Basophils % 0 % Neutrophils # 5.2 (1.3-7.7) k/uL Lymphocytes # 1.4 (1.0-4.8) k/uL Monocytes # 0.4 (0-1.0) k/uL Eosinophils # 0.3 (0-0.7) k/uL Basophils # 0.0 (0-0.2) k/uL Hypochromasia Slight Anisocytosis Slight PT 15.6 H (9.0-12.0) sec INR 1.6 H (<1.2) APTT 29.2 (22.0-30.0) sec Sodium 141 (137-145) mmol/L Potassium 5.0 (3.5-5.1) mmol/L Chloride 105 (98-107) mmol/L Carbon Dioxide 25 (22-30) mmol/L Anion Gap 11 mmol/L BUN 44 H (7-17) mg/dL Creatinine 1.65 H (0.52-1.04) mg/dL Est GFR (CKD-EPI)AfAm 37 (>60 ml/min/1.73 sqM) Est GFR (CKD-EPI)NonAf 32 (>60 ml/min/1.73 sqM) Glucose 128 H (74-99) mg/dL Lactic Ac Sepsis Rflx Plasma Lactic Acid Adrien (0.7-2.0) mmol/L Calcium 8.9 (8.4-10.2) mg/dL Magnesium 1.7 (1.6-2.3) mg/dL Total Bilirubin 0.6 (0.2-1.3) mg/dL AST 28 (14-36) U/L ALT 24 (4-34) U/L Alkaline Phosphatase 88 (38-126) U/L Troponin I (0.000-0.034) ng/mL NT-Pro-B Natriuret Pep pg/mL Total Protein 7.0 (6.3-8.2) g/dL Albumin 4.1 (3.5-5.0) g/dL 06/22/20 06/22/20 06/22/20 Range/Units 10:56 10:56 10:56 WBC (3.8-10.6) k/uL RBC (3.80-5.40) m/uL Hgb (11.4-16.0) gm/dL Hct (34.0-46.0) % MCV (80.0-100.0) fL MCH (25.0-35.0) pg MCHC (31.0-37.0) g/dL RDW (11.5-15.5) % Plt Count (150-450) k/uL MPV Neutrophils % % Lymphocytes % % Monocytes % % Eosinophils % % Basophils % % Neutrophils # (1.3-7.7) k/uL Lymphocytes # (1.0-4.8) k/uL Monocytes # (0-1.0) k/uL Eosinophils # (0-0.7) k/uL Basophils # (0-0.2) k/uL Hypochromasia Anisocytosis PT (9.0-12.0) sec INR (<1.2) APTT (22.0-30.0) sec Sodium (137-145) mmol/L Potassium (3.5-5.1) mmol/L Chloride (98-107) mmol/L Carbon Dioxide (22-30) mmol/L Anion Gap mmol/L BUN (7-17) mg/dL Creatinine (0.52-1.04) mg/dL Est GFR (CKD-EPI)AfAm (>60 ml/min/1.73 sqM) Est GFR (CKD-EPI)NonAf (>60 ml/min/1.73 sqM) Glucose (74-99) mg/dL Lactic Ac Sepsis Rflx Plasma Lactic Acid Adrien 2.1 H* (0.7-2.0) mmol/L Calcium (8.4-10.2) mg/dL Magnesium (1.6-2.3) mg/dL Total Bilirubin (0.2-1.3) mg/dL AST (14-36) U/L ALT (4-34) U/L Alkaline Phosphatase (38-126) U/L Troponin I <0.012 (0.000-0.034) ng/mL NT-Pro-B Natriuret Pep 5700 pg/mL Total Protein (6.3-8.2) g/dL Albumin (3.5-5.0) g/dL 06/22/20 Range/Units 11:37 WBC (3.8-10.6) k/uL RBC (3.80-5.40) m/uL Hgb (11.4-16.0) gm/dL Hct (34.0-46.0) % MCV (80.0-100.0) fL MCH (25.0-35.0) pg MCHC (31.0-37.0) g/dL RDW (11.5-15.5) % Plt Count (150-450) k/uL MPV Neutrophils % % Lymphocytes % % Monocytes % % Eosinophils % % Basophils % % Neutrophils # (1.3-7.7) k/uL Lymphocytes # (1.0-4.8) k/uL Monocytes # (0-1.0) k/uL Eosinophils # (0-0.7) k/uL Basophils # (0-0.2) k/uL Hypochromasia Anisocytosis PT (9.0-12.0) sec INR (<1.2) APTT (22.0-30.0) sec Sodium (137-145) mmol/L Potassium (3.5-5.1) mmol/L Chloride (98-107) mmol/L Carbon Dioxide (22-30) mmol/L Anion Gap mmol/L BUN (7-17) mg/dL Creatinine (0.52-1.04) mg/dL Est GFR (CKD-EPI)AfAm (>60 ml/min/1.73 sqM) Est GFR (CKD-EPI)NonAf (>60 ml/min/1.73 sqM) Glucose (74-99) mg/dL Lactic Ac Sepsis Rflx Y Plasma Lactic Acid Adrien (0.7-2.0) mmol/L Calcium (8.4-10.2) mg/dL Magnesium (1.6-2.3) mg/dL Total Bilirubin (0.2-1.3) mg/dL AST (14-36) U/L ALT (4-34) U/L Alkaline Phosphatase (38-126) U/L Troponin I (0.000-0.034) ng/mL NT-Pro-B Natriuret Pep pg/mL Total Protein (6.3-8.2) g/dL Albumin (3.5-5.0) g/dL - EKG Data EKG Comments: EKG demonstrates a ventricularly paced rhythm with occasional PVCs. Rate of 65. Significant baseline artifact. RI interval 160. QRS 501. No acute ST segment elevations. Disposition Clinical Impression: Congestive heart failure, Shortness of breath, Lower extremity edema Disposition: ADMITTED IP TO THIS HOSP Condition: Stable Is patient prescribed a controlled substance at d/c from ED?: No Decision to Admit Reason: Admit from EC Decision Date: 06/22/20 Decision Time: 12:43
[2020-06-22 11:14] LABS: Anisocytosis Slight; Basophils % (A) 0 %; Eosinophils # (A) 0.3 k/uL (0-0.7); Eosinophils % (A) 4 %; HGB 9.9 gm/dL (11.4-16.0); Hypochromasia Slight; Lymphocytes # (A) 1.4 k/uL (1.0-4.8); Lymphocytes % (A) 19 %; MCHC 31.1 g/dL (31.0-37.0); MCV 93.3 fL (80.0-100.0); Mean Platelet Volume 7.2; Monocytes # (A) 0.4 k/uL (0-1.0); Monocytes % (A) 5 %; Neutrophils # (A) 5.2 k/uL (1.3-7.7); Neutrophils % (A) 70 %; Platelet Count 349 k/uL (150-450); RBC 3.43 m/uL (3.80-5.40); RDW 16.4 % (11.5-15.5); WBC 7.4 k/uL (3.8-10.6)
--- NOTE | 2020-06-22 11:26 | XR ---
EXAMINATION TYPE: XR chest 2V DATE OF EXAM: 06/22/2020 COMPARISON: 08/04/2019 TECHNIQUE: PA and lateral views submitted. HISTORY: difficulty breathing FINDINGS: Chronic rib deformity on the right. Heart enlarged. Cardiac device seen. Hypertrophic and degenerativ e changes spine. Diffuse osteopenia. Hyperinflation of the lungs. IMPRESSION: 1. COPD with cardiomegaly correlate for mild central venous congestion.
[2020-06-22 11:32] LABS: INR 1.6 (<1.2); Partial Thromboplastin Time 29.2 sec (22.0-30.0); Prothrombin Time 15.6 sec (9.0-12.0)
[2020-06-22 12:21] LABS: Albumin 4.1 g/dL (3.5-5.0); Calcium 8.9 mg/dL (8.4-10.2); Magnesium 1.7 mg/dL (1.6-2.3); Total Bilirubin 0.6 mg/dL (0.2-1.3)
[2020-06-22] MEDS ORDERED: FUROSEMIDE 10 MG/ML 10 ML VIAL IV STA (12:42)
[2020-06-22] MEDS ORDERED: NALOXONE 0.4 MG/ML 1 ML VIAL IV PRN (12:43)
[2020-06-22] MEDS ORDERED: ACETAMINOPHEN TAB 325 MG TAB PO PRN (13:02)
[2020-06-22 14:56] LABS: Glucose,Whole Blood 93 mg/dL (75-99)
--- NOTE | 2020-06-22 15:36 | P.CRDCN ---
History of Present Illness History of present illness: HISTORY OF PRESENTING ILLNESS This is a pleasant 69-year-old female past medical history significant for coronary artery disease status post PCI to the PDA branch 2013 with mild to moderate disease of the RCA and LAD noted on catheterization from 2018, cardiomyopathy 2019 with improvement in LV function, permanent pacemaker implantations, nonsustained ventricular tachycardia, chronic persistent atrial fibrillation on long-term anticoagulation, hypertension, diabetes mellitus, dyslipidemia and pulmonary hypertension. She follows in the office with Dr. Ralph. We have been asked to see in consultation for shortness of breath. She states she woke up yesterday feeling short of breath. It was getting progressively worse as the day went on. She was having a hard time walking up the stairs without stopping to take a breath. Last night she woke up multiple times through the night feeling short of breath. She recently lost her and has been struggling emotionally and eating like she should. She also has noticed a 10 lb weight gain in the last 2 weeks. There has been no change in her medications recently. Most recent echocardiogram obtained in the office April 2020 revealed preserved LV systolic function ejection fraction 50%, mildly dilated right ventricle is dilated left atrium, moderate mitral regurgitation, moderate to severe tricuspid regurgitation and moderate pulmonary hypertension with an RVSP of 47 mmHg. She had an episode of self terminating polymorphic VT in May, her beta blockers were increased and she has been stable since that time. A stress test was scheduled in the office for the end of this month. DIAGNOSTICS EKG reveals ventricular paced with underlying afib and PVC's. Chest xray COPD with mild pulmonary vascular congestion. Laboratory reviewed, WBC 7.4, hemoglobin 9.9, platelets 349, sodium 141, potassium 5.0, creatinine 1.65, lactic acid 2. 1 repeat after hydration 1.4, troponin negative 1, magnesium 1.7 and NT proBNP 5700. Current cardiac medications include entresto 24/26 mg twice a day, Toprol 50 mg in the morning and 25 mg at bedtime, Lasix 40 mg 3 times a day, aspirin 81 mg daily, savaysa 60 mg daily and atorvastatin 40 mg daily. REVIEW OF SYSTEMS At the time of my exam: CONSTITUTIONAL: Denies fever or chills. CARDIOVASCULAR: Complains of shortness of breath, orthopnea and PND. Denies chest pain or palpitations. RESPIRATORY: Denies cough. GASTROINTESTINAL: Denies abdominal pain, diarrhea, constipation, nausea or vomiting. MUSCULOSKELETAL: Denies myalgias. NEUROLOGIC: Denies numbness, tingling, headacbe or weakness. ENDOCRINE: Denies fatigue, weight change, polydipsia or polyurina. GENITOURINARY: Denies burning, hematuria or urgency with micturation. HEMATOLOGIC: Denies history of anemia or bleeding. PHYSICAL EXAMINATION Blood pressure 156/67 heart rate 69 afebrile and maintaining oxygen saturation on room air. CONSTITUTIONAL: No apparent distress. HEENT: Head is normocephalic. Pupils are equal, round. Sclerae anicteric. Mucous membranes of the mouth are moist. No JVD. No carotid bruit. CHEST EXAMINATION: Faint bibasilar rales, no wheezes or rhonch. No chest wall tenderness is noted on palpation or with deep breathing. HEART EXAMINATION: Irregular rate and rhythm. S1, S2 heard. Systolic ejection murmur at the left sternal border, no gallops or rub. ABDOMEN: Soft, nontender. Positive bowel sounds. EXTREMITIES: 2+ peripheral pulses, bilateral lower extremity edema and venous s tasis changes and no calf tenderness. NEUROLOGIC EXAMINATION: Patient is awake, alert and oriented x3. ASSESSMENT Acute on chronic diastolic heart failure History of idiopathic cardiomyopathy Pulmonary hypertension Lactic acidosis Chronic kidney disease Coronary artery disease status post PCI of the PDA branch Hypertension Dyslipidemia Chronic persistent atrial fibrillation on long-term anticoagulation s/p failed cardioversion Diabetes mellitus Permanent pacemaker implantation PLAN Continue with IV diuresis. Follow renal function and electrolytes in the morning. Document accurate intake and output along with daily weights. Recent echocardiogram in office reviewed. Further recommendations to follow based on clinical course. Thank you kindly for this consultation. Nurse Practitioner note has been reviewed, I agree with a documented findings and plan of care. Patient was seen and examined. Past Medical History Past Medical History: Atrial Fibrillation, Heart Failure, Diabetes Mellitus, Eye Disorder, Hyperlipidemia, Osteoarthritis (OA), Pneumonia, Skin Disorder, Vascular Disorder Additional Past Medical History / Comment(s): Chronic Venous Stasis BLE w/ chronic ulceration of the left lower extremity, current small area still left leg, CAD W/ coronary stenting Rt PDA 2013. History of kidney stones. Pacemaker (Brand:ST DAPHNE). HAS CATARACT LT. WOUNDS LLE, USING SILVADENE CREAM. EDEMA BLE. seeing Dr Calderon r/t kidney function. Small wound LLE. History of Any Multi-Drug Resistant Organisms: None Reported Past Surgical History: Cardiac Ablation, Heart Catheterization, Heart Catheterization With Stent, Hysterectomy, Pacemaker, Tubal Ligation Additional Past Surgical History / Comment(s): states has had mult sx on veins left leg, [place] with cardioversion, varicose vein stripping, one cardiac stent, rt cataract, kidney stone sx, LLE surgery with stent and skin grafting. Past Anesthesia/Blood Transfusion Reactions: No Reported Reaction Additional Past Anesthesia/Blood Transfusion Reaction / Comment(s): PONV 40 PLUS YEARS AGO, AFTER REMOVAL KIDNEY STONE. Date of Last Stent Placement:: November 2013 Type of Cardiac Device: Permanent Pacemaker Device Placement Date:: 10/30/2017 Past Psychological History: No Psychological Hx Reported Smoking Status: Never smoker Past Alcohol Use History: None Reported Past Drug Use History: None Reported - Past Family History Father History Unknown: Yes Family Medical History: No Reported History Additional Family Medical History / Comment(s): Aneurysm, apssed in 2000. Mother Family Medical History: Cancer Additional Family Medical History / Comment(s): Bladder and has since passed. Medications and Allergies Home Medications Medication Instructions Recorded Confirmed Type Aspirin EC [Ecotrin Low Dose] 81 mg PO DAILY 02/27/14 06/22/20 History Edoxaban Tosylate [Savaysa] 60 mg PO DAILY 07/20/16 06/22/20 History Atorvastatin [Lipitor] 40 mg PO HS 10/22/17 06/22/20 History metFORMIN HCL [Glucophage] 850 mg PO TID 10/30/17 06/22/20 History Acetaminophen Tab [Tylenol] 650 mg PO Q6HR PRN tab 11/01/17 06/22/20 Rx Insulin Glargine,Hum.rec.anlog 37 units SQ HS 12/16/17 06/22/20 History [Toujeo Solostar] Liraglutide [Victoza 2-Ishan] 1.8 mg SQ DAILY 12/16/17 06/22/20 History Furosemide [Lasix] 40 mg PO TID 06/04/18 06/22/20 History Ferrous Sulfate [Iron (65 MG 325 mg PO DAILY 01/19/19 06/22/20 History Elemental)] Allopurinol [Zyloprim] 100 mg PO DAILY 03/25/19 06/22/20 History calcitrioL [Calcitriol] 0.25 mcg PO WE 03/25/19 06/22/20 History Ergocalciferol [Vitamin D2 50,000 unit PO WE 04/13/19 06/22/20 History (DRISDOL)] Sacubitril/Valsartan [Entresto 24 1 tab PO BID 04/13/19 06/22/20 History mg-26 mg Tablet] Metoprolol Succinate (ER) [Toprol 50 mg PO DAILY 06/22/20 06/22/20 History Xl] Metoprolol Succinate [Toprol XL] 25 mg PO HS 06/22/20 06/22/20 History Allergies Allergy/AdvReac Type Severity Reaction Status Date / Time Iodinated Contrast Media Allergy Severe THROAT Verified 06/22/20 10:33 [Iodinated Contrast Media - SWELLING Oral and] iodine Allergy Severe THROAT Verified 06/22/20 10:33 SWELLING, RASH shellfish derived Allergy Severe THROAT Verified 06/22/20 10:33 SWELLING, RASH cefazolin sodium Allergy Dyspnea Verified 06/22/20 10:33 [From Kefzol] Latex, Natural Rubber Allergy Rash/Hives Verified 06/22/20 10:33 levofloxacin [From Levaquin] Allergy Rash/Hives Verified 06/22/20 10:33 piperacillin sodium Allergy THROAT Verified 06/22/20 10:33 [From Zosyn] SWELL, RASH tazobactam sodium Allergy THROAT Verified 06/22/20 10:33 [From Zosyn] SWELL, RASH verapamil AdvReac Severe Hallucinati Verified 06/22/20 10:33 ons seafood Allergy Severe throat Uncoded 06/22/20 10:33 swelling Physical Exam Vitals: Vital Signs Temp Pulse Pulse Resp BP BP Pulse Ox 06/22/20 14:16 97.9 F 69 18 156/67 97 06/22/20 13:02 60 16 145/60 100 06/22/20 10:33 97.8 F 60 16 174/81 100 Intake and Output 06/22/20 06/22/20 06/22/20 06:59 14:59 22:59 Other: Weight 113.852 kg Results 06/22/20 10:56 06/22/20 10:56 Cardiac Enzymes 06/22/20 06/22/20 Range/Units 10:56 10:56 AST 28 (14-36) U/L Troponin I <0.012 (0.000-0.034) ng/mL Coagulation 06/22/20 Range/Units 10:56 PT 15.6 H (9.0-12.0) sec APTT 29.2 (22.0-30.0) sec CBC 06/22/20 Range/Units 10:56 WBC 7.4 (3.8-10.6) k/uL RBC 3.43 L (3.80-5.40) m/uL Hgb 9.9 L (11.4-16.0) gm/dL Hct 32.0 L (34.0-46.0) % Plt Count 349 (150-450) k/uL Comprehensive Metabolic Panel 06/22/20 Range/Units 10:56 Sodium 141 (137-145) mmol/L Potassium 5.0 (3.5-5.1) mmol/L Chloride 105 (98-107) mmol/L Carbon Dioxide 25 (22-30) mmol/L BUN 44 H (7-17) mg/dL Creatinine 1.65 H (0.52-1.04) mg/dL Glucose 128 H (74-99) mg/dL Calcium 8.9 (8.4-10.2) mg/dL AST 28 (14-36) U/L ALT 24 (4-34) U/L Alkaline Phosphatase 88 (38-126) U/L Total Protein 7.0 (6.3-8.2) g/dL Albumin 4.1 (3.5-5.0) g/dL Current Medications Generic Name Dose Route Start Last Admin Trade Name Freq PRN Reason Stop Dose Admin Acetaminophen 650 mg 06/22/20 13:02 Acetaminophen Tab 325 Mg Tab PO Q6HR PRN Mild Pain Allopurinol 100 mg 06/23/20 09:00 Allopurinol 100 Mg Tab PO DAILY [facility] Aspirin 81 mg 06/23/20 09:00 Aspirin 81 Mg PO DAILY [facility] Atorvastatin Calcium 40 mg 06/22/20 21:00 Atorvastatin 40 Mg Tab PO HS [facility] Calcitriol 0.25 mcg 06/29/20 09:00 Calcitriol 0.25 Mcg Cap PO WE [facility] Edoxaban 60 mg 06/23/20 09:00 Edoxaban Tosylate 60 Mg Tablet PO DAILY [facility] Ferrous Sulfate 325 mg 06/23/20 09:00 Ferrous Sulfate 325 Mg Tab PO DAILY [facility] Furosemide 60 mg 06/22/20 21:00 Furosemide 10 Mg/Ml 10 Ml Vial IV BID [facility] Insulin Aspart 0 unit 06/22/20 17:30 Insulin Aspart (Novolog) 100 Unit/Ml Vial SQ 06/24/20 18:00 ACHS [facility] Protocol Insulin Detemir 37 unit 06/22/20 21:00 Insulin Detemir (Levemir) 100 Unit/Ml Syr SQ HS [facility] Metformin HCl 850 mg 06/22/20 16:00 Metformin 850 Mg Tab PO TID [facility] Metoprolol Succinate 25 mg 06/22/20 21:00 Metoprolol Succinate (Er) 25 Mg Tab.Er.24h PO HS [facility] Metoprolol Succinate 50 mg 06/23/20 09:00 Metoprolol Succinate (Er) 50 Mg Tab.Er.24h PO DAILY [facility] Naloxone HCl 0.2 mg 06/22/20 12:43 Naloxone 0.4 Mg/Ml 1 Ml Vial IV Q2M PRN Opioid Reversal Non-Formulary Medication 1.8 mg 06/23/20 09:00 Liraglutide [Victoza 2-Ishan] SQ DAILY [facility] Sacubitril/Valsartan 1 each 06/22/20 21:00 Sacubitril/Valsartan 24 Mg-26 Mg Tablet PO BID [facility] Intake and Output 06/22/20 06/22/20 06/22/20 06:59 14:59 22:59 Other: Weight 113.852 kg Patient Weight 06/23/20 06:59 Weight 113.852 kg 06/22/20 10:56 06/22/20 10:56
[2020-06-22] MEDS: metFORMIN 850 MG TAB PO SCH ×2 (16:19→20:49)
[2020-06-22 17:33] LABS: Glucose,Whole Blood 79 mg/dL (75-99)
[2020-06-22] MEDS: INSULIN ASPART (NovoLOG) 100 UNIT/ML VIAL SQ SCH ×2 (17:44→20:35)
[2020-06-22 18:03] LABS: Glucose,Whole Blood 80 mg/dL (75-99)
[2020-06-22 19:41] LABS: Glucose,Whole Blood 108 mg/dL (75-99)
[2020-06-22] MEDS: METOPROLOL SUCCINATE (ER) 25 MG TAB.ER.24H PO SCH (20:47)
[2020-06-22] MEDS: FUROSEMIDE 10 MG/ML 10 ML VIAL IV SCH (20:47)
[2020-06-22] MEDS: SACUBITRIL/VALSARTAN 24 MG-26 MG TABLET PO SCH (20:47)
[2020-06-22] MEDS: ATORVASTATIN 40 MG TAB PO SCH (20:47)
[2020-06-22] MEDS: INSULIN DETEMIR (LEVEMIR) 100 UNIT/ML SYR SQ SCH (20:48)
[2020-06-23 05:30] LABS: Glucose,Whole Blood 73 mg/dL (75-99)
[2020-06-23 06:08] LABS: Glucose,Whole Blood 153 mg/dL (75-99)
[2020-06-23 06:27] LABS: Anisocytosis Slight; Basophils % (A) 0 %; Eosinophils # (A) 0.3 k/uL (0-0.7); Eosinophils % (A) 4 %; HCT 31.3 % (34.0-46.0); HGB 9.8 gm/dL (11.4-16.0); Hypochromasia Slight; Lymphocytes # (A) 1.4 k/uL (1.0-4.8); Lymphocytes % (A) 20 %; MCH 29.3 pg (25.0-35.0); MCHC 31.4 g/dL (31.0-37.0); MCV 93.6 fL (80.0-100.0); Mean Platelet Volume 7.4; Monocytes # (A) 0.5 k/uL (0-1.0); Monocytes % (A) 7 %; Neutrophils # (A) 4.7 k/uL (1.3-7.7); Neutrophils % (A) 67 %; Platelet Count 328 k/uL (150-450); RBC 3.35 m/uL (3.80-5.40); RDW 16.3 % (11.5-15.5)
[2020-06-23 06:38] LABS: ALT 22 U/L (4-34); AST 23 U/L (14-36); African American GFR (CKD) 44 (>60 ml/min/1.73 sqM); Albumin 3.9 g/dL (3.5-5.0); Albumin/Globulin Ratio 1.4; Alkaline Phosphatase 70 U/L (38-126); Anion Gap 13 mmol/L; Blood Urea Nitrogen 44 mg/dL (7-17); Calcium 9.1 mg/dL (8.4-10.2); Carbon Dioxide 26 mmol/L (22-30); Chloride 103 mmol/L (98-107); Globulin 2.7 g/dL; Glucose 88 mg/dL (74-99); Magnesium 1.7 mg/dL (1.6-2.3); Non-African American GFR(CKD) 38 (>60 ml/min/1.73 sqM); Potassium 4.2 mmol/L (3.5-5.1); Sodium 142 mmol/L (137-145); Total Bilirubin 0.5 mg/dL (0.2-1.3); Total Protein 6.6 g/dL (6.3-8.2)
[2020-06-23 06:50] LABS: Glucose,Whole Blood 140 mg/dL (75-99)
[2020-06-23] MEDS: INSULIN ASPART (NovoLOG) 100 UNIT/ML VIAL SQ SCH ×4 (08:11→20:06)
[2020-06-23] MEDS: allopurinoL 100 MG TAB PO SCH (08:11)
[2020-06-23] MEDS: METOPROLOL SUCCINATE (ER) 50 MG TAB.ER.24H PO SCH (08:12)
[2020-06-23] MEDS: EDOXABAN TOSYLATE 60 MG TABLET PO SCH (08:12)
[2020-06-23] MEDS: ASPIRIN 81 MG PO SCH (08:12)
[2020-06-23] MEDS: SACUBITRIL/VALSARTAN 24 MG-26 MG TABLET PO SCH ×2 (08:12→20:16)
[2020-06-23] MEDS: metFORMIN 850 MG TAB PO SCH ×3 (08:12→20:17)
[2020-06-23] MEDS: FERROUS SULFATE 325 MG TAB PO SCH (08:13)
--- NOTE | 2020-06-23 08:20 | XR ---
EXAMINATION TYPE: XR chest 2V DATE OF EXAM: 06/23/2020 COMPARISON: Prior chest x-ray 06/22/2020 HISTORY: Congestive heart failure and shortness of breath TECHNIQUE: Frontal and lateral views of the chest are obtained. FINDINGS: Left pectoral generator, leads in right atrium and ventricle are again seen. Heart remains enlarged. No evident pneumothorax or pleural effusion. Central vascularity appears prominently, inte rstitium is mildly increased. IMPRESSION: Correlate for pulmonary venous hypertension and interstitial edema, volume overload
[2020-06-23 08:22] LABS: Glucose,Whole Blood 117 mg/dL (75-99)
[2020-06-23] MEDS ORDERED: CAFFEINE CITRATE 60 MG/3 ML VIAL IV PRN (08:35)
[2020-06-23] MEDS ORDERED: AMINOPHYLLINE 500 MG/20 ML VIAL IV PRN (08:35)
[2020-06-23] MEDS ORDERED: REGADENOSON 0.4 MG/5 ML SYRINGE IV PRN (08:35)
[2020-06-23] MEDS: FUROSEMIDE 10 MG/ML 10 ML VIAL IV SCH ×2 (08:51→20:16)
[2020-06-23] MEDS: NON FORMULARY DRUG (Liraglutide [Victoza 2-Pak] 0.6 MG/0.1 ML Pen.Injctr) SQ SCH (09:11)
--- NOTE | 2020-06-23 10:56 | P.CNPUL ---
History of Present Illness Consult date: 06/23/20 Reason for consult: dyspnea, other Chief complaint: Exertional dyspnea, congestive heart failure History of present illness: This is a 69-year-old female with prior medical history of A. fib heart failure and diabetes mellitus, patient admitted from the emergency department with progressive shortness of breath and exertional dyspnea, patient has found symptoms to be progressive for the last 3 or 4 days, she has increasing lower extremity edema as well have gained about 12 pounds, patient was seen and evaluated in primary care's office due to above concern was sent to emergency department for further evaluation and intervention and treatment denies any cough or sputum production denies any fever or chills, patient has been on antilipid agent and direct oral anticoagulant along with management of diabetes and diuretics, prior cardiac history is significant for cardiac cath angiogram and stent placement status post pacemaker, no history of smoking or ethanol abuse present, she has ALLERGIES to multiple agents including iodine and antibiotics including Levaquin and Zosyn and cefazolin, on arrival she was noted to have elevated BNP of over 5700 chest x-ray consistent with CHF-like and fluid overload finding, post IV Lasix did improve with swelling coming down, patient is for stress test for her oxygen saturation is highly 90s on room air, patient most recent echocardiogram done in cardiovascular office in April 2020 ejection fraction was noted to be 50% with mildly dilated RV with moderate pulmonary hypertension RVSP of 47 Review of Systems All systems: negative Past Medical History Past Medical History: Atrial Fibrillation, Heart Failure, Diabetes Mellitus, Eye Disorder, Hyperlipidemia, Osteoarthritis (OA), Pneumonia, Skin Disorder, Vascular Disorder Additional Past Medical History / Comment(s): Chronic Venous Stasis BLE w/ chronic ulceration of the left lower extremity, current small area still left leg, CAD W/ coronary stenting Rt PDA 2013. History of kidney stones. Pacemaker (Brand:ST DAPHNE). HAS CATARACT LT. WOUNDS LLE, USING SILVADENE CREAM. EDEMA BLE. seeing Dr Calderon r/t kidney function. Small wound LLE. History of Any Multi-Drug Resistant Organisms: None Reported Past Surgical History: Cardiac Ablation, Heart Catheterization, Heart Catheterization With Stent, Hysterectomy, Pacemaker, Tubal Ligation Additional Past Surgical History / Comment(s): states has had mult sx on veins left leg, [place] with cardioversion, varicose vein stripping, one cardiac stent, rt cataract, kidney stone sx, LLE surgery with stent and skin grafting. Past Anesthesia/Blood Transfusion Reactions: No Reported Reaction Additional Past Anesthesia/Blood Transfusion Reaction / Comment(s): PONV 40 PLUS YEARS AGO, AFTER REMOVAL KIDNEY STONE. Date of Last Stent Placement:: November 2013 Type of Cardiac Device: Permanent Pacemaker Device Placement Date:: 10/30/2017 Past Psychological History: No Psychological Hx Reported Smoking Status: Never smoker Past Alcohol Use History: None Reported Past Drug Use History: None Reported - Past Family History Father History Unknown: Yes Family Medical History: No Reported History Additional Family Medical History / Comment(s): Aneurysm, apssed in 2000. Mother Family Medical History: Cancer Additional Family Medical History / Comment(s): Bladder and has since passed. Medications and Allergies Home Medications Medication Instructions Recorded Confirmed Type Aspirin EC [Ecotrin Low Dose] 81 mg PO DAILY 02/27/14 06/22/20 History Edoxaban Tosylate [Savaysa] 60 mg PO DAILY 07/20/16 06/22/20 History Atorvastatin [Lipitor] 40 mg PO HS 10/22/17 06/22/20 History metFORMIN HCL [Glucophage] 850 mg PO TID 10/30/17 06/22/20 History Acetaminophen Tab [Tylenol] 650 mg PO Q6HR PRN tab 11/01/17 06/22/20 Rx Insulin Glargine,Hum.rec.anlog 37 units SQ HS 12/16/17 06/22/20 History [Touherrera Solostar] Liraglutide [Victoza 2-Ishan] 1.8 mg SQ DAILY 12/16/17 06/22/20 History Furosemide [Lasix] 40 mg PO TID 06/04/18 06/22/20 History Ferrous Sulfate [Iron (65 MG 325 mg PO DAILY 01/19/19 06/22/20 History Elemental)] Allopurinol [Zyloprim] 100 mg PO DAILY 03/25/19 06/22/20 History calcitrioL [Calcitriol] 0.25 mcg PO WE 03/25/19 06/22/20 History Ergocalciferol [Vitamin D2 50,000 unit PO WE 04/13/19 06/22/20 History (DRISDOL)] Sacubitril/Valsartan [Entresto 24 1 tab PO BID 04/13/19 06/22/20 History mg-26 mg Tablet] Metoprolol Succinate (ER) [Toprol 50 mg PO DAILY 06/22/20 06/22/20 History Xl] Metoprolol Succinate [Toprol XL] 25 mg PO HS 06/22/20 06/22/20 History Allergies Allergy/AdvReac Type Severity Reaction Status Date / Time Iodinated Contrast Media Allergy Severe THROAT Verified 06/22/20 10:33 [Iodinated Contrast Media - SWELLING Oral and] iodine Allergy Severe THROAT Verified 06/22/20 10:33 SWELLING, RASH shellfish derived Allergy Severe THROAT Verified 06/22/20 10:33 SWELLING, RASH cefazolin sodium Allergy Dyspnea Verified 06/22/20 10:33 [From Kefzol] Latex, Natural Rubber Allergy Rash/Hives Verified 06/22/20 10:33 levofloxacin [From Levaquin] Allergy Rash/Hives Verified 06/22/20 10:33 piperacillin sodium Allergy THROAT Verified 06/22/20 10:33 [From Zosyn] SWELL, RASH tazobactam sodium Allergy THROAT Verified 06/22/20 10:33 [From Zosyn] SWELL, RASH verapamil AdvReac Severe Hallucinati Verified 06/22/20 10:33 ons seafood Allergy Severe throat Uncoded 06/22/20 10:33 swelling Physical Exam Vitals: Vital Signs Temp Pulse Pulse Resp BP BP Pulse Ox 06/23/20 07:39 97.5 F L 60 20 128/71 97 06/23/20 01:12 98 F 57 L 18 153/75 95 06/22/20 19:29 98.1 F 56 L 18 117/70 98 06/22/20 14:16 97.9 F 69 18 156/67 97 06/22/20 13:02 60 16 145/60 100 Intake and Output 06/22/20 06/23/20 06/23/20 22:59 06:59 14:59 Output Total 300 Balance -300 Output: Urine 300 Other: Voiding Method Toilet Toilet Toilet Weight 111.2 kg 111.2 kg - Constitutional General appearance: morbidly obese - EENT Eyes: PERRLA Ears: bilateral: normal - Neck Neck: normal ROM Carotids: bilateral: upstroke normal - Respiratory Respiratory: bilateral: rales (By basilar Rales) - Cardiovascular Rhythm: regular Heart sounds: normal: S1, S2 - Gastrointestinal General gastrointestinal: soft - Integumentary Lower extremity edema with chronic venous stasis Integumentary: normal turgor - Musculoskeletal Musculoskeletal: gait normal, generalized weakness, strength equal bilaterally - Psychiatric Psychiatric: A&O x's 3, appropriate affect, intact judgment & insight Results - Laboratory Findings CBC and BMP: 06/23/20 05:53 06/23/20 05:53 PT/INR, D-dimer PT 15.6 sec (9.0-12.0) H 06/22/20 10:56 INR 1.6 (<1.2) H 06/22/20 10:56 Abnormal lab findings: Abnormal Labs 06/22/20 06/22/20 06/22/20 10:56 10:56 10:56 RBC 3.43 L Hgb 9.9 L Hct 32.0 L RDW 16.4 H PT 15.6 H INR 1.6 H BUN 44 H Creatinine 1.65 H Glucose 128 H POC Glucose (mg/dL) Plasma Lactic Acid Adrien 06/22/20 06/22/20 06/23/20 10:56 19:39 05:28 RBC Hgb Hct RDW PT INR BUN Creatinine Glucose POC Glucose (mg/dL) 108 H 73 L Plasma Lactic Acid Adrien 2.1 H* 06/23/20 06/23/20 06/23/20 05:53 05:53 06:05 RBC 3.35 L Hgb 9.8 L Hct 31.3 L RDW 16.3 H PT INR BUN 44 H Creatinine 1.43 H Glucose POC Glucose (mg/dL) 153 H Plasma Lactic Acid Adrien 06/23/20 06/23/20 06:49 08:09 RBC Hgb Hct RDW PT INR BUN Creatinine Glucose POC Glucose (mg/dL) 140 H 117 H Plasma Lactic Acid Adrien - Diagnostic Findings Chest x-ray: report reviewed, image reviewed Assessment and Plan Assessment: Acute exacerbation of acute on chronic systolic heart failure Exertional dyspnea likely related to heart failure however associated coronary artery disease cannot be excluded Hypertension hypertensive cardiovascular disease and dyslipidemia Moderate pulmonary hypertension Likely sleep disorder breathing and sleep apnea Plan: Agree with gentle diuresis Monitor renal function closely For a stress test later on today Patient will need a sleep study on outpatient basis Continue current medications follow clinical course closely Time with Patient: Greater than 30
[2020-06-23 11:20] LABS: Glucose,Whole Blood 87 mg/dL (75-99)
--- NOTE | 2020-06-23 11:35 | NM ---
EXAMINATION TYPE: NM stress lexiscan cardiolite DATE OF EXAM: 06/23/2020 COMPARISON: 01/30/2013 HISTORY: Chest pain TECHNIQUE: After the intravenous administration of 9.5 mCi Tc 99m Sestamibi - Cardiolite resting SPE CT images acquired 45 minutes post injection. The patient received 0.4mg Lexiscan, 25.3 mCi Tc 99m Sestamibi - Stress images obtained [address] injection FINDINGS: Review of stress and rest SPECT images demonstrates no distinct perfusion abnormality. Gated analysi s shows some questionable apical paradoxical wall motion with an estimated left ventricular ejection fraction of 55 %. IMPRESSION: No scintigraphic evidence for reversible ischemia. Consider echocardiographic correlation for possibl e paradoxical apical wall motion
--- NOTE | 2020-06-23 14:35 | EST ---
EXERCISE STRESS AGE: 69 SEX: Female HT: 5'6" WT: 245 lbs. PROTOCOL: Lexiscan STAGE: N/A DURATION OF EXERCISE: 5 minutes HEART RATE REST: 61 BLOOD PRESSURE REST: 145/57 MAXIMUM HEART RATE ACHIEVED: 63 MAXIMUM BLOOD PRESSURE: 148/66 85% MPHR: 130 100% MPHR: 153 METS: N/A INDICATIONS: Dyspnea CLINICAL INFORMATION: Baseline rhythm is atrial fibrillation with 100% paced rhythm. Baseline blood pressure 145/57 mmHg. Patient received an injection of Lexiscan. Electrocardiograph monitoring revealed occasional PVCs. There was no evidence of diagnostic ischemic ST deviation. Cardiolite was injected per protocol. CONCLUSION: 1. Nondiagnostic electrocardiograph stress testing. 2. Nuclear images will be reported separately. MMODL / IJN: [id number] /
--- NOTE | 2020-06-23 14:39 | P.PN ---
Subjective HISTORY OF PRESENTING ILLNESS This is a pleasant 69-year-old female past medical history significant for coronary artery disease status post PCI to the PDA branch 2013 with mild to moderate disease of the RCA and LAD noted on catheterization from 2019, cardiomyopathy 2019 with improvement in LV function, permanent pacemaker implantations, nonsustained ventricular tachycardia, chronic persistent atrial fibrillation on long-term anticoagulation, hypertension, diabetes mellitus, dyslipidemia and pulmonary hypertension. She follows in the office with Dr. Ralph. She is seen and examined in no acute distress. She states she's been u p to the bathroom frequently and is urinating a lot. She states her breathing is improving however not back to baseline. Blood pressure 128/71 heart rate 68 afebrile maintaining oxygen saturation on room air. Laboratory data reviewed, WBC 7, hemoglobin 9.8, platelets 328, sodium 142, potassium 4.2, creatinine 1.43 and magnesium 1.7. Lexiscan stress test performed is negative for reversible cardiac ischemia. Weight is down 2 kg however there is no documented output. PHYSICAL EXAMINATION CONSTITUTIONAL: No apparent distress. HEENT: Head is normocephalic. Pupils are equal, round. Sclerae anicteric. Mucous membranes of the mouth are moist. No JVD. No carotid bruit. CHEST EXAMINATION: Faint bibasilar rales, no wheezes or rhonch. No chest wall tenderness is noted on palpation or with deep breathing. HEART EXAMINATION: Irregular rate and rhythm. S1, S2 heard. Systolic ejection murmur at the left sternal border, no gallops or rub. EXTREMITIES: 2+ peripheral pulses, bilateral lower extremity edema and venous stasis changes and no calf tenderness. ASSESSMENT Acute on chronic diastolic heart failure History of idiopathic cardiomyopathy Pulmonary hypertension Lactic acidosis Chronic kidney disease Coronary artery disease status post PCI of the PDA branch Hypertension Dyslipidemia Chronic persistent atrial fibrillation on long-term anticoagulation s/p failed cardioversion Diabetes mellitus Permanent pacemaker implantation PLAN Continue IV diuresis for another 24 hours. Follow renal function and electrolytes in the morning. Document accurate intake and output along with daily weights. Nurse Practitioner note has been reviewed, I agree with a documented findings and plan of care. Patient was seen and examined. Objective - Vital Signs Vital signs: Vital Signs Temp 97.5 F L 06/23/20 07:39 Pulse 60 06/23/20 07:39 Resp 20 06/23/20 07:39 BP 128/71 06/23/20 07:39 Pulse Ox 97 06/23/20 07:39 Intake & Output 06/22/20 06/23/20 06/23/20 18:59 06:59 18:59 Intake Total 400 Output Total 600 Balance -200 Weight 113.852 kg 111.2 kg 111.2 kg Intake: Oral 400 Output: Urine 600 Other: Voiding Method Toilet Toilet - Labs CBC & Chem 7: 06/23/20 05:53 06/23/20 05:53 Labs: Abnormal Lab Results - Last 24 Hours (Table) 06/22/20 06/23/20 06/23/20 Range/Units 19:39 05:28 05:53 RBC 3.35 L (3.80-5.40) m/uL Hgb 9.8 L (11.4-16.0) gm/dL Hct 31.3 L (34.0-46.0) % RDW 16.3 H (11.5-15.5) % BUN (7-17) mg/dL Creatinine (0.52-1.04) mg/dL POC Glucose (mg/dL) 108 H 73 L (75-99) mg/dL 06/23/20 06/23/20 06/23/20 Range/Units 05:53 06:05 06:49 RBC (3.80-5.40) m/uL Hgb (11.4-16.0) gm/dL Hct (34.0-46.0) % RDW (11.5-15.5) % BUN 44 H (7-17) mg/dL Creatinine 1.43 H (0.52-1.04) mg/dL POC Glucose (mg/dL) 153 H 140 H (75-99) mg/dL 06/23/20 Range/Units 08:09 RBC (3.80-5.40) m/uL Hgb (11.4-16.0) gm/dL Hct (34.0-46.0) % RDW (11.5-15.5) % BUN (7-17) mg/dL Creatinine (0.52-1.04) mg/dL POC Glucose (mg/dL) 117 H (75-99) mg/dL
[2020-06-23 17:13] LABS: Glucose,Whole Blood 80 mg/dL (75-99)
--- NOTE | 2020-06-23 19:38 | P.HPIM ---
History of Present Illness H&P Date: 06/23/20 (0900) Chief Complaint: Exertional shortness of breath Pleasant 69-year-old female was seen in our office on 06/22/2020, patient noted to have exertional shortness of breath for 2 day duration. Patient has significant past medical history of coronary artery disease status post PCI to the PDA branch in 2013 with mild to moderate disease of the RCA and LAD noted on cardiac catheterization from 2018, cardiomyopathy, atrial fibrillation on anticoagulation therapy, essential hypertension, diabetes mellitus type 2, hyperlipidemia, pulmonary hypertension, and chronic kidney disease stage II to 3. Patient had extensive diagnostic workup in the emergency department revealing pulmonary vascular congestion on chest x-ray with elevated BNP. Last echocardiogram showed an ejection fraction greater than 55%. Patient was initiated on IV diuresis for congestive heart failure; cardiology was consulted due to complex cardiac issues with volume overload, pulmonary critical care was consulted due to complex medical history. Patient denies fever, chills chest discomfort, palpitations, abdominal pain, nausea, vomiting, diarrhea. Review of Systems Constitutional: Reports weakness Cardiovascular: Reports decreased exercise tolerance, Reports dyspnea on exertion, Reports shortness of breath Respiratory: Reports sleep apnea Musculoskeletal: Reports muscle weakness Neurological: Reports weakness Endocrine: Reports weight change Past Medical History Past Medical History: Atrial Fibrillation, Heart Failure, Diabetes Mellitus, Eye Disorder, Hyperlipidemia, Osteoarthritis (OA), Pneumonia, Skin Disorder, Vascular Disorder Additional Past Medical History / Comment(s): Chronic Venous Stasis BLE w/ chronic ulceration of the left lower extremity, current small area still left leg, CAD W/ coronary stenting Rt PDA 2013. History of kidney stones. Pacemaker (Brand:ST DAPHNE). HAS CATARACT LT. WOUNDS LLE, USING SILVADENE CREAM. EDEMA B LE. seeing Dr Calderon r/t kidney function. Small wound LLE. History of Any Multi-Drug Resistant Organisms: None Reported Past Surgical History: Cardiac Ablation, Heart Catheterization, Heart Catheterization With Stent, Hysterectomy, Pacemaker, Tubal Ligation Additional Past Surgical History / Comment(s): states has had mult sx on veins left leg, [place] with cardioversion, varicose vein stripping, one cardiac stent, rt cataract, kidney stone sx, LLE surgery with stent and skin grafting. Past Anesthesia/Blood Transfusion Reactions: No Reported Reaction Additional Past Anesthesia/Blood Transfusion Reaction / Comment(s): PONV 40 PLUS YEARS AGO, AFTER REMOVAL KIDNEY STONE. Date of Last Stent Placement:: November 2013 Type of Cardiac Device: Permanent Pacemaker Device Placement Date:: 10/30/2017 Past Psychological History: No Psychological Hx Reported Smoking Status: Never smoker Past Alcohol Use History: None Reported Past Drug Use History: None Reported - Past Family History Father History Unknown: Yes Family Medical History: No Reported History Additional Family Medical History / Comment(s): Aneurysm, apssed in 2000. Mother Family Medical History: Cancer Additional Family Medical History / Comment(s): Bladder and has since passed. Medications and Allergies Home Medications and Allergies Comment(s): Medications and ALLERGIES reviewed Home Medications Medication Instructions Recorded Confirmed Type Aspirin EC [Ecotrin Low Dose] 81 mg PO DAILY 02/27/14 06/22/20 History Edoxaban Tosylate [Savaysa] 60 mg PO DAILY 07/20/16 06/22/20 History Atorvastatin [Lipitor] 40 mg PO HS 10/22/17 06/22/20 History metFORMIN HCL [Glucophage] 850 mg PO TID 10/30/17 06/22/20 History Acetaminophen Tab [Tylenol] 650 mg PO Q6HR PRN tab 11/01/17 06/22/20 Rx Insulin Glargine,Hum.rec.anlog 37 units SQ HS 12/16/17 06/22/20 History [Touchatoo Solostar] Liraglutide [Victoza 2-Ishan] 1.8 mg SQ DAILY 12/16/17 06/22/20 History Furosemide [Lasix] 40 mg PO TID 06/04/18 06/22/20 History Ferrous Sulfate [Iron (65 MG 325 mg PO DAILY 01/19/19 06/22/20 History Elemental)] Allopurinol [Zyloprim] 100 mg PO DAILY 03/25/19 06/22/20 History calcitrioL [Calcitriol] 0.25 mcg PO WE 03/25/19 06/22/20 History Ergocalciferol [Vitamin D2 50,000 unit PO WE 04/13/19 06/22/20 History (DRISDOL)] Sacubitril/Valsartan [Entresto 24 1 tab PO BID 04/13/19 06/22/20 History mg-26 mg Tablet] Metoprolol Succinate (ER) [Toprol 50 mg PO DAILY 06/22/20 06/22/20 History Xl] Metoprolol Succinate [Toprol XL] 25 mg PO HS 06/22/20 06/22/20 History Allergies Allergy/AdvReac Type Severity Reaction Status Date / Time Iodinated Contrast Media Allergy Severe THROAT Verified 06/22/20 10:33 [Iodinated Contrast Media - SWELLING Oral and] iodine Allergy Severe THROAT Verified 06/22/20 10:33 SWELLING, RASH shellfish derived Allergy Severe THROAT Verified 06/22/20 10:33 SWELLING, RASH cefazolin sodium Allergy Dyspnea Verified 06/22/20 10:33 [From Kefzol] Latex, Natural Rubber Allergy Rash/Hives Verified 06/22/20 10:33 levofloxacin [From Levaquin] Allergy Rash/Hives Verified 06/22/20 10:33 piperacillin sodium Allergy THROAT Verified 06/22/20 10:33 [From Zosyn] SWELL, RASH tazobactam sodium Allergy THROAT Verified 06/22/20 10:33 [From Zosyn] SWELL, RASH verapamil AdvReac Severe Hallucinati Verified 06/22/20 10:33 ons seafood Allergy Severe throat Uncoded 06/22/20 10:33 swelling Physical Exam Vitals: Vital Signs Temp Pulse Resp BP Pulse Ox 06/23/20 14:46 98.3 F 60 16 129/75 98 06/23/20 13:40 20 06/23/20 07:39 97.5 F L 60 20 128/71 97 06/23/20 01:12 98 F 57 L 18 153/75 95 06/22/20 19:29 98.1 F 56 L 18 117/70 98 Intake and Output 06/23/20 06/23/20 06/23/20 06:59 14:59 22:59 Intake Total 400 480 Output Total 600 400 Balance -200 80 Intake: Oral 400 480 Output: Urine 600 400 Other: Voiding Method Toilet Toilet Weight 111.2 kg 111.2 kg - Constitutional General appearance: mild distress - EENT Eyes: EOMI, PERRLA ENT: normal oropharynx Ears: bilateral: normal - Neck Neck: normal ROM Carotids: bilateral: upstroke normal Thyroid: bilateral: normal size - Respiratory Respiratory: bilateral: diminished (Anterior lung otero), rales (Posterior bases) - Cardiovascular Ventricle pacedunderlying rhythm atrial fibrillation Heart rate: 61 Rhythm: regular Abnormal Heart Sounds: systolic murmur ankle Peripheral Edema: bilateral: 2+ foot Peripheral Edema: bilateral: 2+ radial pulse Peripheral Pulses: bilateral: Normal dorsalis pedis Peripheral Pulses: bilateral: Normal - Gastrointestinal General gastrointestinal: normal bowel sounds - Integumentary Integumentary: normal - Neurologic Neurologic: CNII-XII intact - Musculoskeletal Musculoskeletal: generalized weakness - Psychiatric Psychiatric: A&O x's 3, appropriate affect, intact judgment & insight Results CBC & Chem 7: 06/23/20 05:53 06/23/20 05:53 Labs: Abnormal Lab Results - Last 24 Hours (Table) 06/22/20 06/23/20 06/23/20 Range/Units 19:39 05:28 05:53 RBC 3.35 L (3.80-5.40) m/uL Hgb 9.8 L (11.4-16.0) gm/dL Hct 31.3 L (34.0-46.0) % RDW 16.3 H (11.5-15.5) % BUN (7-17) mg/dL Creatinine (0.52-1.04) mg/dL POC Glucose (mg/dL) 108 H 73 L (75-99) mg/dL 06/23/20 06/23/20 06/23/20 Range/Units 05:53 06:05 06:49 RBC (3.80-5.40) m/uL Hgb (11.4-16.0) gm/dL Hct (34.0-46.0) % RDW (11.5-15.5) % BUN 44 H (7-17) mg/dL Creatinine 1.43 H (0.52-1.04) mg/dL POC Glucose (mg/dL) 153 H 140 H (75-99) mg/dL 06/23/20 Range/Units 08:09 RBC (3.80-5.40) m/uL Hgb (11.4-16.0) gm/dL Hct (34.0-46.0) % RDW (11.5-15.5) % BUN (7-17) mg/dL Creatinine (0.52-1.04) mg/dL POC Glucose (mg/dL) 117 H (75-99) mg/dL Chest x-ray: report reviewed Thrombosis Risk Factor Assmnt - Choose All That Apply Each Factor Represents 1 point: Heart failure (<1month), Obesity (BMI >25), Swollen legs (current), Varicose veins Other Risk Factors: Yes Each Risk Factor Represents 2 Points: Age 61-74 years Other congenital or acquired thrombophilia - If yes, enter type in comment: No Thrombosis Risk Factor Assessment Total Risk Factor Score: 6 Thrombosis Risk Factor Assessment Level: High Risk Assessment and Plan Assessment: Acute on chronic diastolic heart failure History of idiopathic cardiomyopathy Pulmonary hypertension Chronic kidney disease Coronary artery disease status post PCI of the PDA branch Hypertension Hyperlipidemia Chronic persistent atrial fibrillation on long-term anticoagulation Diabetes mellitus type 2 [id number] Permanent pacemaker Anemia of chronic disease Plan: Acute on chronic heart failureIV diuresis; consultation with cardiology for recommendations and treatment plan Hypertensioncontinue home medications Hyperlipidemiacontinue statin therapy Chronic kidney diseasemonitor renal function and electrolyte Diabetes type 2 mellitus continue home medications with added sliding scale Continue home medications Medical management Hopeful discharge in 24 hours Time with Patient: Greater than 30
[2020-06-23 20:06] LABS: Glucose,Whole Blood 118 mg/dL (75-99)
[2020-06-23] MEDS: INSULIN DETEMIR (LEVEMIR) 100 UNIT/ML SYR SQ SCH (20:06)
[2020-06-23] MEDS: ATORVASTATIN 40 MG TAB PO SCH (20:16)
[2020-06-23] MEDS: METOPROLOL SUCCINATE (ER) 25 MG TAB.ER.24H PO SCH (20:16)
[2020-06-24 05:54] LABS: ALT 18 U/L (4-34); AST 20 U/L (14-36); African American GFR (CKD) 48 (>60 ml/min/1.73 sqM); Albumin 3.6 g/dL (3.5-5.0); Albumin/Globulin Ratio 1.4; Alkaline Phosphatase 63 U/L (38-126); Anion Gap 10 mmol/L; Blood Urea Nitrogen 49 mg/dL (7-17); Calcium 8.8 mg/dL (8.4-10.2); Carbon Dioxide 27 mmol/L (22-30); Chloride 100 mmol/L (98-107); Globulin 2.6 g/dL; Glucose 164 mg/dL (74-99); Magnesium 1.7 mg/dL (1.6-2.3); Non-African American GFR(CKD) 42 (>60 ml/min/1.73 sqM); Potassium 4.7 mmol/L (3.5-5.1); Sodium 137 mmol/L (137-145); Total Bilirubin 0.5 mg/dL (0.2-1.3); Total Protein 6.2 g/dL (6.3-8.2)
[2020-06-24 06:02] LABS: Anisocytosis Slight; Basophils # (A) 0.1 k/uL (0-0.2); Basophils % (A) 1 %; Eosinophils # (A) 0.5 k/uL (0-0.7); Eosinophils % (A) 6 %; HCT 32.1 % (34.0-46.0); HGB 10.1 gm/dL (11.4-16.0); Hypochromasia Slight; Lymphocytes # (A) 1.6 k/uL (1.0-4.8); Lymphocytes % (A) 21 %; MCH 29.7 pg (25.0-35.0); MCHC 31.4 g/dL (31.0-37.0); MCV 94.5 fL (80.0-100.0); Mean Platelet Volume 7.3; Monocytes # (A) 0.7 k/uL (0-1.0); Monocytes % (A) 9 %; Neutrophils # (A) 4.8 k/uL (1.3-7.7); Neutrophils % (A) 62 %; Platelet Count 322 k/uL (150-450); RDW 16.4 % (11.5-15.5); WBC 7.7 k/uL (3.8-10.6)
[2020-06-24] MEDS: INSULIN ASPART (NovoLOG) 100 UNIT/ML VIAL SQ SCH ×2 (07:39→12:44)
[2020-06-24 07:44] LABS: Glucose,Whole Blood 134 mg/dL (75-99)
[2020-06-24] MEDS ORDERED: FUROSEMIDE 20 MG TAB PO SCH (09:00)
[2020-06-24] MEDS: ASPIRIN 81 MG PO SCH (09:43)
[2020-06-24] MEDS: METOPROLOL SUCCINATE (ER) 50 MG TAB.ER.24H PO SCH (09:43)
[2020-06-24] MEDS: allopurinoL 100 MG TAB PO SCH (09:43)
[2020-06-24] MEDS: EDOXABAN TOSYLATE 60 MG TABLET PO SCH (09:44)
[2020-06-24] MEDS: SACUBITRIL/VALSARTAN 24 MG-26 MG TABLET PO SCH (09:44)
[2020-06-24] MEDS: FERROUS SULFATE 325 MG TAB PO SCH (09:44)
[2020-06-24] MEDS: metFORMIN 850 MG TAB PO SCH (09:44)
[2020-06-24] MEDS: NON FORMULARY DRUG (Liraglutide [Victoza 2-Pak] 0.6 MG/0.1 ML Pen.Injctr) SQ SCH (09:46)
--- NOTE | 2020-06-24 10:15 | PN ---
PROGRESS NOTE Mrs. Mendoza is a 69-year-old female with known history coronary artery disease, history of atrial fibrillation status post AV marck ablation and permanent pacemaker implantation, prior history of cardiomyopathy who presented with worsening peripheral edema. She is feeling better this morning. She is ambulating without difficulty. Denying any chest pain. No dizziness. No palpitation. She denies any nausea. She continued to be on aspirin 81 mg daily, Savaysa 60 mg daily, Lipitor 40 mg daily, Lasix 60 mg IV q.12 hours, Victoza, Glucophage, metoprolol succinate 50 in the morning, 25 in the afternoon and Entresto 24-26 twice a day. PHYSICAL EXAMINATION: Blood pressure running in the 120s to 140s with the heart rate in the 60s. LUNGS: Clear. HEART: Regular rate and rhythm. S1, S2. No S3 with a systolic murmur. No diastolic murmur. ABDOMEN: Soft. Nontender. EXTREMITIES: No significant edema. LAB DATA: Her lab data revealed BUN and creatinine 49 and 1.32, which is improved compared to yesterday. Potassium 4.7. Hemoglobin of 10.1. IMPRESSION: 1. Symptoms of congestive heart failure with preserved systolic function, improved. 2. History of coronary artery disease, stable. 3. Status post permanent pacemaker implantation. 4. Atrial fibrillation, status post AV marck ablation and pacemaker implantation. 5. Hypertension. 6. Hyperlipidemia. 7. Diabetes mellitus. RECOMMENDATION: She underwent a myocardial perfusion imaging yesterday that showed a preserved left ventricular systolic function with no evidence of stress induced ischemia, I will switch her to oral diuretics. She should be able to be discharged home today and followed as an outpatient. MMODL / IJN: [id number] /
--- NOTE | 2020-06-24 11:07 | P.PN ---
Subjective Progress Note Date: 06/24/20 Principal diagnosis: Acute exacerbation of acute on chronic systolic heart failure Exertional dyspnea likely related to heart failure however associated coronary artery disease cannot be excluded Hypertension hypertensive cardiovascular disease and dyslipidemia Moderate pulmonary hypertension Likely sleep disorder breathing and sleep apnea 06/24/2020, patient seen eval reexamined during the rounds sitting upright on the bed breathing comfortably, denies any chest pain, feels feels less short of breath than before, patient weight is 2 kg less I have discussed about impo rtance of evaluating sleep disorder breathing and sleep apnea with the patient This is a 69-year-old female with prior medical history of A. fib heart failure and diabetes mellitus, patient admitted from the emergency department with progressive shortness of breath and exertional dyspnea, patient has found symptoms to be progressive for the last 3 or 4 days, she has increasing lower extremity edema as well have gained about 12 pounds, patient was seen and evaluated in primary care's office due to above concern was sent to emergency department for further evaluation and intervention and treatment denies any cough or sputum production denies any fever or chills, patient has been on antilipid agent and direct oral anticoagulant along with management of diabetes and diuretics, prior cardiac history is significant for cardiac cath angiogram and stent placement status post pacemaker, no history of smoking or ethanol abuse present, she has ALLERGIES to multiple agents including iodine and an tibiotics including Levaquin and Zosyn and cefazolin, on arrival she was noted to have elevated BNP of over 5700 chest x-ray consistent with CHF-like and fluid overload finding, post IV Lasix did improve with swelling coming down, patient is for stress test for her oxygen saturation is highly 90s on room air, patient most recent echocardiogram done in cardiovascular office in April 2020 ejection fraction was noted to be 50% with mildly dilated RV with moderate pulmonary hypertension RVSP of 47 Objective - Vital Signs Vital signs: Vital Signs Temp 98.1 F 06/24/20 02:00 Pulse 67 06/24/20 02:00 Resp 16 06/24/20 02:00 BP 151/67 06/24/20 02:00 Pulse Ox 95 06/24/20 02:00 Intake & Output 06/23/20 06/24/20 06/24/20 18:59 06:59 18:59 Intake Total 880 Output Total 1000 800 Balance -120 -800 Weight 111.2 kg 111.1 kg Intake: Oral 880 Output: Urine 1000 800 Other: Voiding Method Toilet Toilet - Exam - Constitutional General appearance: morbidly obese - EENT Eyes: PERRLA Ears: bilateral: normal - Neck Neck: normal ROM Carotids: bilateral: upstroke normal - Respiratory Respiratory: bilateral: rales (By basilar Rales) - Cardiovascular Rhythm: regular Heart sounds: normal: S1, S2 - Gastrointestinal General gastrointestinal: soft - Integumentary Lower extremity edema with chronic venous stasis Integumentary: normal turgor - Musculoskeletal Musculoskeletal: gait normal, generalized weakness, strength equal bilaterally - Psychiatric Psychiatric: A&O x's 3, appropriate affect, intact judgment & insight - Labs CBC & Chem 7: 06/24/20 05:27 06/24/20 05:27 Labs: Abnormal Lab Results - Last 24 Hours (Table) 06/23/20 06/24/20 06/24/20 Range/Units 20:04 05:27 05:27 RBC 3.40 L (3.80-5.40) m/uL Hgb 10.1 L (11.4-16.0) gm/dL Hct 32.1 L (34.0-46.0) % RDW 16.4 H (11.5-15.5) % BUN 49 H (7-17) mg/dL Creatinine 1.32 H (0.52-1.04) mg/dL Glucose 164 H (74-99) mg/dL POC Glucose (mg/dL) 118 H (75-99) mg/dL Total Protein 6.2 L (6.3-8.2) g/dL 06/24/20 Range/Units 07:36 RBC (3.80-5.40) m/uL Hgb (11.4-16.0) gm/dL Hct (34.0-46.0) % RDW (11.5-15.5) % BUN (7-17) mg/dL Creatinine (0.52-1.04) mg/dL Glucose (74-99) mg/dL POC Glucose (mg/dL) 134 H (75-99) mg/dL Total Protein (6.3-8.2) g/dL Assessment and Plan Assessment: Acute exacerbation of acute on chronic systolic heart failure Exertional dyspnea likely related to heart failure Hypertension hypertensive cardiovascular disease and dyslipidemia Moderate pulmonary hypertension Likely sleep disorder breathing and sleep apnea Plan: Agree with gentle diuresis Monitor renal function closely reviewed results of stress test Patient will need a sleep study on outpatient basis Continue current medications follow clinical course closely Time with Patient: Greater than 30
[2020-06-24 12:46] LABS: Glucose,Whole Blood 112 mg/dL (75-99)
[2020-06-24 13:48] VITALS: BP 143/73; PULSE 61; RESP 18; TEMP 97.7
--- NOTE | 2020-06-24 18:21 | P.DS ---
Providers Date of admission: 06/22/20 12:43 Expected date of discharge: 06/24/20 Attending physician: Edgardo Juarez Consults: 06/22/20 12:45 Consult Physician Urgent Consulting Provider: Claude Kern Consult Reason/Comments: CHF Do you want consulting provider notified?: Yes 06/22/20 12:57 Consult Physician Urgent Consulting Provider: Suman Hua Consult Reason/Comments: CHF Do you want consulting provider notified?: Yes Primary care physician: Edgardo Juarez Hospital Course: Pleasant 69-year-old female was admitted to the hospital due to rest of shortness of breath over 2 day duration with associated symptoms of weight gain of 10 pounds patient had extensive diagnostic workup in emergency department revealing acute on chronic heart failure. Patient was placed on IV diuretics for heart failuredecrease of 7 pounds with IV diuresiskidney function at baseline after diuresis. Patient underwent stress tests revealing no acute changes or reversible ischemia. Cardiology and pulmonology was consulted for expert opinion for recommendations and treatment plan. Assessment: Acute on chronic diastolic heart failure History of idiopathic cardiomyopathy Pulmonary hypertension Chronic kidney disease Coronary artery disease status post PCI of PDA branch Hypertension Hyperlipidemia Chronic persistent atrial fibrillation on long-term anticoagulation Diabetes mellitus type 2 Permanent pacemaker Anemia of chronic disease Health Concerns: Multiple comorbidities Pertinent Studies: Stress testsno acute changes or reversible ischemia noted on stress tests Procedures: No procedures performed Patient Condition at Discharge: Stable Plan - Discharge Summary Discharge Rx Participant: Yes New Discharge Prescriptions: Continue Aspirin EC [Ecotrin Low Dose] 81 mg PO DAILY Edoxaban Tosylate [Savaysa] 60 mg PO DAILY Atorvastatin [Lipitor] 40 mg PO HS metFORMIN HCL [Glucophage] 850 mg PO TID Acetaminophen Tab [Tylenol] 650 mg PO Q6HR PRN tab PRN Reason: Mild Pain Insulin Glargine,Hum.rec.anlog [Toujeo Solostar] 37 units SQ HS Liraglutide [Victoza 2-Ishan] 1.8 mg SQ DAILY Furosemide [Lasix] 40 mg PO TID Ferrous Sulfate [Iron (65 MG Elemental)] 325 mg PO DAILY Allopurinol [Zyloprim] 100 mg PO DAILY calcitrioL [Calcitriol] 0.25 mcg PO WE Sacubitril/Valsartan [Entresto 24 mg-26 mg Tablet] 1 tab PO BID Ergocalciferol [Vitamin D2 (DRISDOL)] 50,000 unit PO WE Metoprolol Succinate (ER) [Toprol XL] 50 mg PO DAILY Metoprolol Succinate [Toprol XL] 25 mg PO HS Discharge Medication List Aspirin EC [Ecotrin Low Dose] 81 mg PO DAILY 02/27/14 [History] Edoxaban Tosylate [Savaysa] 60 mg PO DAILY 07/20/16 [History] Atorvastatin [Lipitor] 40 mg PO HS 10/22/17 [History] metFORMIN HCL [Glucophage] 850 mg PO TID 10/30/17 [History] Acetaminophen Tab [Tylenol] 650 mg PO Q6HR PRN tab 11/01/17 [Rx] Insulin Glargine,Hum.rec.anlog [Toujeo Solostar] 37 units SQ HS 12/16/17 [History] Liraglutide [Victoza 2-Ishan] 1.8 mg SQ DAILY 12/16/17 [History] Furosemide [Lasix] 40 mg PO TID 06/04/18 [History] Ferrous Sulfate [Iron (65 MG Elemental)] 325 mg PO DAILY 01/19/19 [History] Allopurinol [Zyloprim] 100 mg PO DAILY 03/25/19 [History] calcitrioL [Calcitriol] 0.25 mcg PO WE 03/25/19 [History] Ergocalciferol [Vitamin D2 (DRISDOL)] 50,000 unit PO WE 04/13/19 [History] Sacubitril/Valsartan [Entresto 24 mg-26 mg Tablet] 1 tab PO BID 04/13/19 [History] Metoprolol Succinate (ER) [Toprol XL] 50 mg PO DAILY 06/22/20 [History] Metoprolol Succinate [Toprol XL] 25 mg PO HS 06/22/20 [History] Follow up Appointment(s)/Referral(s): Edgardo Juarez MD [Primary Care Provider] - 07/05/20 10:00 am Mica Calderon MD [STAFF PHYSICIAN] - 08/24/20 1:15 pm Otis Ralph MD [STAFF PHYSICIAN] - 07/04/20 10:45 am Suman Hua MD [STAFF PHYSICIAN] - 07/08/20 12:30 pm Patient Instructions/Handouts: Heart Failure (DC), Dyspnea (DC) Discharge Disposition: HOME SELF-CARE
== END 2020-06-24 13:26 | disposition home or self-care (01) ==
LOC: EC 10:32 → 6NMEDSUR 12:43
PROVIDERS: ADMIT Family Medicine; ATTEND Family Medicine
DX: I13.0 Hypertensive heart and chronic kidney disease with heart failure and stage 1 through stage 4 chronic kidney disease, or unspecified chronic kidney disease (principal); I50.43 Acute on chronic combined systolic (congestive) and diastolic (congestive) heart failure; N18.30 Chronic kidney disease, stage 3 unspecified; I42.9 Cardiomyopathy, unspecified; I27.20 Pulmonary hypertension, unspecified; E11.22 Type 2 diabetes mellitus with diabetic chronic kidney disease; I25.10 Atherosclerotic heart disease of native coronary artery without angina pectoris; Z95.5 Presence of coronary angioplasty implant and graft; E78.5 Hyperlipidemia, unspecified; D63.8 Anemia in other chronic diseases classified elsewhere; Z79.01 Long term (current) use of anticoagulants; I47.2 Ventricular tachycardia; E87.2 Acidosis; Z95.0 Presence of cardiac pacemaker; E66.01 Morbid (severe) obesity due to excess calories; I87.8 Other specified disorders of veins; M19.90 Unspecified osteoarthritis, unspecified site; Z87.01 Personal history of pneumonia (recurrent); Z87.442 Personal history of urinary calculi; L97.929 Non-pressure chronic ulcer of unspecified part of left lower leg with unspecified severity; Z90.710 Acquired absence of both cervix and uterus; Z95.828 Presence of other vascular implants and grafts; Z82.49 Family history of ischemic heart disease and other diseases of the circulatory system; Z80.52 Family history of malignant neoplasm of bladder; Z79.82 Long term (current) use of aspirin; Z79.899 Other long term (current) drug therapy; Z79.84 Long term (current) use of oral hypoglycemic drugs; Z88.1 Allergy status to other antibiotic agents; Z91.041 Radiographic dye allergy status; Z91.040 Latex allergy status; Z88.0 Allergy status to penicillin; Z91.013 Allergy to seafood; Z88.8 Allergy status to other drugs, medicaments and biological substances; Z91.048 Other nonmedicinal substance allergy status; I83.90 Asymptomatic varicose veins of unspecified lower extremity; J44.9 Chronic obstructive pulmonary disease, unspecified; I48.19 Other persistent atrial fibrillation; Z68.39 Body mass index [BMI] 39.0-39.9, adult; Z20.822 Contact with and (suspected) exposure to COVID-19
CPT/HCPCS: 96376 ×2; 96374; 99285; 36415; 93005; 93017; 83880; 80053 ×3; 83605; 83735 ×3; 84484; 85025 ×3; 85610; 85730; 87635; 71046 ×2; 78452; G0378 ×3; A9500; J1940 ×2; J2785

== ENCOUNTER 2020-10-02 10:12 | Inpatient (IN) | payer MEDICARE, BC ==
[2020-10-02 11:18] LABS: Glucose,Whole Blood 141 mg/dL (75-99)
[2020-10-02] MEDS ORDERED: SODIUM CHLORIDE 0.9% 1,000 ML IV STA ×2 (11:21)
[2020-10-02 11:43] LABS: Basophils % (A) 0 %; Eosinophils # (A) 0.2 k/uL (0-0.7); Eosinophils % (A) 4 %; HCT 25.5 % (34.0-46.0); HGB 8.3 gm/dL (11.4-16.0); Hypochromasia Moderate; Lymphocytes # (A) 1.2 k/uL (1.0-4.8); Lymphocytes % (A) 19 %; MCH 28.9 pg (25.0-35.0); MCHC 32.4 g/dL (31.0-37.0); MCV 89.2 fL (80.0-100.0); Mean Platelet Volume 7.2; Monocytes # (A) 0.4 k/uL (0-1.0); Monocytes % (A) 7 %; Neutrophils % (A) 67 %; Platelet Count 336 k/uL (150-450); RBC 2.86 m/uL (3.80-5.40); RDW 14.6 % (11.5-15.5)
[2020-10-02 11:58] LABS: INR 1.5 (<1.2); Partial Thromboplastin Time 25.2 sec (22.0-30.0); Prothrombin Time 14.7 sec (9.0-12.0)
--- NOTE | 2020-10-02 12:21 | ED ---
General Adult HPI - General Chief complaint: Recheck/Abnormal Lab/Rx Stated complaint: Weakness,Low Hemoglobin Time Seen by Provider: 10/02/20 10:50 Source: patient, RN notes reviewed, old records reviewed Mode of arrival: wheelchair Limitations: no limitations - History of Present Illness Initial comments: This Patient is a 62-year-old female who presents to the emergency department with complaints of weakness. Patient reports on Saturday she had her annual blood work done and was called by her physician in stating that she had a drop her hemoglobin from 11.8-8.2. Patient reports that she's been weak for the past week and a half. She states that on Saturday night after having her blood drawn she did notice that her right eye had blurry vision. She states that she is on Savasa for afib. Denies headache. Patient denies any bloody stools. Patient reports that she's had no change in urination. She does report of bilateral leg weakness with walking short distances. Denies any significant chest pain or shortness of breath. - Related Data Home Medications Medication Instructions Recorded Confirmed Aspirin EC [Ecotrin Low Dose] 81 mg PO DAILY 02/27/14 10/02/20 Edoxaban Tosylate [Savaysa] 60 mg PO DAILY 07/20/16 10/02/20 Atorvastatin [Lipitor] 40 mg PO HS 10/22/17 10/02/20 metFORMIN HCL [Glucophage] 850 mg PO TID 10/30/17 10/02/20 Insulin Glargine,Hum.rec.anlog 37 units SQ HS 12/16/17 10/02/20 [Dorothy Astorga] Liraglutide [Victoza 2-Ishan] 1.8 mg SQ DAILY 12/16/17 10/02/20 Furosemide [Lasix] 40 mg PO TID 06/04/18 10/02/20 Ferrous Sulfate [Iron (65 MG 325 mg PO DAILY 01/19/19 10/02/20 Elemental)] Allopurinol [Zyloprim] 100 mg PO DAILY 03/25/19 10/02/20 calcitrioL [Calcitriol] 0.5 mcg PO WE 03/25/19 10/02/20 Sacubitril/Valsartan [Entresto 24 1 tab PO BID 04/13/19 10/02/20 mg-26 mg Tablet] Metoprolol Succinate (ER) [Toprol 50 mg PO DAILY 06/22/20 10/02/20 XL] Metoprolol Succinate [Toprol XL] 25 mg PO HS 06/22/20 10/02/20 Cholecalciferol [Vitamin D3 (25 25 mcg PO DAILY 10/02/20 10/02/20 Mcg = 1000 Iu)] Previous Rx's Medication Instructions Recorded Acetaminophen Tab [Tylenol] 650 mg PO Q6HR PRN tab 11/01/17 Allergies Allergy/AdvReac Type Severity Reaction Status Date / Time Iodinated Contrast Media Allergy Severe THROAT Verified 10/02/20 12:14 [Iodinated Contrast Media - SWELLING Oral and] iodine Allergy Severe THROAT Verified 10/02/20 12:14 SWELLING, RASH shellfish derived Allergy Severe THROAT Verified 10/02/20 12:14 SWELLING, RASH cefazolin sodium Allergy Dyspnea Verified 10/02/20 12:14 [From Kefzol] Latex, Natural Rubber Allergy Rash/Hives Verified 10/02/20 12:14 levofloxacin [From Levaquin] Allergy Rash/Hives Verified 10/02/20 12:14 piperacillin sodium Allergy THROAT Verified 10/02/20 12:14 [From Zosyn] SWELL, RASH tazobactam sodium Allergy THROAT Verified 10/02/20 12:14 [From Zosyn] SWELL, RASH verapamil AdvReac Severe Hallucinati Verified 10/02/20 12:14 ons seafood Allergy Severe throat Uncoded 06/22/20 10:33 swelling Review of Systems ROS Statement: Those systems with pertinent positive or pertinent negative responses have been documented in the HPI. ROS Other: All systems not noted in ROS Statement are negative. Past Medical History Past Medical History: Atrial Fibrillation, Heart Failure, Diabetes Mellitus, Eye Disorder, Hyperlipidemia, Osteoarthritis (OA), Pneumonia, Skin Disorder, Vascular Disorder Additional Past Medical History / Comment(s): Chronic Venous Stasis BLE w/ chronic ulceration of the left lower extremity, current small area still left leg, CAD W/ coronary stenting Rt PDA 2013. History of kidney stones. Pacemaker (Brand:ST DAPHNE). HAS CATARACT LT. WOUNDS LLE, USING SILVADENE CREAM. EDEMA BLE. seeing Dr Calderon r/t kidney function. Small wound LLE. History of Any Multi-Drug Resistant Organisms: None Reported Past Surgical History: Cardiac Ablation, Heart Catheterization, Heart Catheterization With Stent, Hysterectomy, Pacemaker, Tubal Ligation Additional Past Surgical History / Comment(s): states has had mult sx on veins left leg, [place] with cardioversion, varicose vein stripping, one cardiac stent, rt cataract, kidney stone sx, LLE surgery with stent and skin grafting. Past Anesthesia/Blood Transfusion Reactions: No Reported Reaction Additional Past Anesthesia/Blood Transfusion Reaction / Comment(s): PONV 40 PLUS YEARS AGO, AFTER REMOVAL KIDNEY STONE. Date of Last Stent Placement:: November 2013 Type of Cardiac Device: Permanent Pacemaker Device Placement Date:: 10/30/2017 Past Psychological History: No Psychological Hx Reported Smoking Status: Never smoker Past Alcohol Use History: None Reported Past Drug Use History: None Reported - Past Family History Father History Unknown: Yes Family Medical History: No Reported History Additional Family Medical History / Comment(s): Aneurysm, apssed in 2000. Mother Family Medical History: Cancer Additional Family Medical History / Comment(s): Bladder and has since passed. General Exam - General Exam Comments Initial Comments: 70-year-old female. Alert and oriented 3. Limitations: no limitations General appearance: alert Head exam: Present: atraumatic, normocephalic, normal inspection Eye exam: Present: normal appearance, PERRL, EOMI. Absent: scleral icterus, conjunctival injection, periorbital swelling ENT exam: Present: normal exam, mucous membranes moist, other (Right eye IOP 15, Left eye IOP 18, Visual acuity right 20/25, Visual acuity left 20/20, Bilateral 20/25. Pupils equal and reactive ) Neck exam: Present: normal inspection. Absent: tenderness, meningismus, lymphadenopathy Respiratory exam: Present: normal lung sounds bilaterally. Absent: respiratory distress, wheezes, rales, rhonchi, stridor Cardiovascular Exam: Present: regular rate, normal rhythm, normal heart sounds. Absent: systolic murmur, diastolic murmur, rubs, gallop, clicks GI/Abdominal exam: Present: soft, normal bowel sounds. Absent: distended, tenderness, guarding, rebound, rigid Rectal exam: Present: normal inspection, normal rectal tone (No black stools), other Extremities exam: Present: normal inspection Back exam: Present: normal inspection Neurological exam: Present: alert, oriented X3, CN II-XII intact Psychiatric exam: Present: normal affect, normal mood Skin exam: Present: warm, dry, intact, normal color. Absent: rash Course Vital Signs 10/02/20 10:38 Temperature 98.7 F Pulse Rate 60 Respiratory 18 Rate Blood Pressure 132/69 O2 Sat by Pulse 98 Oximetry - Reevaluation(s) Reevaluation #1: 10/02/20 14:[address] Nieves about the concern for blurry vision. He states it could be related to the anemia. Dr. Nieves of patient's intraocular pressures at 15 on the right and 18 on the left respectively. He had informed me that he will not have the tools in the hospital to be able to thoroughly evaluate the Patient. He would be happy to contact the patient's she's doing while she is hospitalized but would plan to do a thorough evaluation at his office. Medical Decision Making - Medical Decision Making This patient's a 62-year-old female with history of atrial fibrillation on Savasa with complaints of weakness and had an decreased hemoglobin to 8.2. This prompted Patient come to the ER be evaluated. She also noted that she's been having blurry vision to the right eye since Saturday. I examine as discussed above note. I did contact Dr. Nieves about the blurred vision and he plans to do a thorough evaluation in his office. On exam Patient was found to have conjunctival pallor. She denies any abdominal pain. Fecal occult test is positive. She does have an elevated BUN/creatinine. I did discuss the case with patient's son-in-law, Dr. Edgardo Juarez. And he would like to have the Patient admitted with GI consult as well as consult to nephrology. Patient will have serial H&H's. She was given IV Protonix. - Lab Data Result diagrams: 10/02/20 11:26 10/02/20 11:26 Lab Results 10/02/20 10/02/20 10/02/20 Range/Units 11:16 11:26 11:26 WBC 6.0 (3.8-10.6) k/uL RBC 2.86 L (3.80-5.40) m/uL Hgb 8.3 L (11.4-16.0) gm/dL Hct 25.5 L (34.0-46.0) % MCV 89.2 (80.0-100.0) fL MCH 28.9 (25.0-35.0) pg MCHC 32.4 (31.0-37.0) g/dL RDW 14.6 (11.5-15.5) % Plt Count 336 (150-450) k/uL MPV 7.2 Neutrophils % 67 % Lymphocytes % 19 % Monocytes % 7 % Eosinophils % 4 % Basophils % 0 % Neutrophils # 4.0 (1.3-7.7) k/uL Lymphocytes # 1.2 (1.0-4.8) k/uL Monocytes # 0.4 (0-1.0) k/uL Eosinophils # 0.2 (0-0.7) k/uL Basophils # 0.0 (0-0.2) k/uL Hypochromasia Moderate PT 14.7 H (9.0-12.0) sec INR 1.5 H (<1.2) APTT 25.2 (22.0-30.0) sec Sodium (137-145) mmol/L Potassium (3.5-5.1) mmol/L Chloride (98-107) mmol/L Carbon Dioxide (22-30) mmol/L Anion Gap mmol/L BUN (7-17) mg/dL Creatinine (0.52-1.04) mg/dL Est GFR (CKD-EPI)AfAm (>60 ml/min/1.73 sqM) Est GFR (CKD-EPI)NonAf (>60 ml/min/1.73 sqM) Glucose (74-99) mg/dL POC Glucose (mg/dL) 141 H (75-99) mg/dL POC Glu Stitch Wheeler ID Hirgo, Admon Lactic Ac Sepsis Rflx Plasma Lactic Acid Adrien (0.7-2.0) mmol/L Calcium (8.4-10.2) mg/dL Magnesium (1.6-2.3) mg/dL Total Bilirubin (0.2-1.3) mg/dL AST (14-36) U/L ALT (4-34) U/L Alkaline Phosphatase (38-126) U/L Troponin I (0.000-0.034) ng/mL Total Protein (6.3-8.2) g/dL Albumin (3.5-5.0) g/dL Stool Occult Blood (Negative) 10/02/20 10/02/20 10/02/20 Range/Units 11:26 11:26 11:26 WBC (3.8-10.6) k/uL RBC (3.80-5.40) m/uL Hgb (11.4-16.0) gm/dL Hct (34.0-46.0) % MCV (80.0-100.0) fL MCH (25.0-35.0) pg MCHC (31.0-37.0) g/dL RDW (11.5-15.5) % Plt Count (150-450) k/uL MPV Neutrophils % % Lymphocytes % % Monocytes % % Eosinophils % % Basophils % % Neutrophils # (1.3-7.7) k/uL Lymphocytes # (1.0-4.8) k/uL Monocytes # (0-1.0) k/uL Eosinophils # (0-0.7) k/uL Basophils # (0-0.2) k/uL Hypochromasia PT (9.0-12.0) sec INR (<1.2) APTT (22.0-30.0) sec Sodium 143 (137-145) mmol/L Potassium 4.7 (3.5-5.1) mmol/L Chloride 106 (98-107) mmol/L Carbon Dioxide 23 (22-30) mmol/L Anion Gap 14 mmol/L BUN 51 H (7-17) mg/dL Creatinine 1.45 H (0.52-1.04) mg/dL Est GFR (CKD-EPI)AfAm 43 (>60 ml/min/1.73 sqM) Est GFR (CKD-EPI)NonAf 37 (>60 ml/min/1.73 sqM) Glucose 124 H (74-99) mg/dL POC Glucose (mg/dL) (75-99) mg/dL POC Glu Stitch Wheeler ID Lactic Ac Sepsis Rflx Plasma Lactic Acid Adrien 3.9 H* (0.7-2.0) mmol/L Calcium 9.2 (8.4-10.2) mg/dL Magnesium 2.0 (1.6-2.3) mg/dL Total Bilirubin 0.2 (0.2-1.3) mg/dL AST 26 (14-36) U/L ALT 16 (4-34) U/L Alkaline Phosphatase 65 (38-126) U/L Troponin I <0.012 (0.000-0.034) ng/mL Total Protein 6.6 (6.3-8.2) g/dL Albumin 4.3 (3.5-5.0) g/dL Stool Occult Blood (Negative) 10/02/20 10/02/20 Range/Units 11:26 12:06 WBC (3.8-10.6) k/uL RBC (3.80-5.40) m/uL Hgb (11.4-16.0) gm/dL Hct (34.0-46.0) % MCV (80.0-100.0) fL MCH (25.0-35.0) pg MCHC (31.0-37.0) g/dL RDW (11.5-15.5) % Plt Count (150-450) k/uL MPV Neutrophils % % Lymphocytes % % Monocytes % % Eosinophils % % Basophils % % Neutrophils # (1.3-7.7) k/uL Lymphocytes # (1.0-4.8) k/uL Monocytes # (0-1.0) k/uL Eosinophils # (0-0.7) k/uL Basophils # (0-0.2) k/uL Hypochromasia PT (9.0-12.0) sec INR (<1.2) APTT (22.0-30.0) sec Sodium (137-145) mmol/L Potassium (3.5-5.1) mmol/L Chloride (98-107) mmol/L Carbon Dioxide (22-30) mmol/L Anion Gap mmol/L BUN (7-17) mg/dL Creatinine (0.52-1.04) mg/dL Est GFR (CKD-EPI)AfAm (>60 ml/min/1.73 sqM) Est GFR (CKD-EPI)NonAf (>60 ml/min/1.73 sqM) Glucose (74-99) mg/dL POC Glucose (mg/dL) (75-99) mg/dL POC Glu Stitch Wheeler ID Lactic Ac Sepsis Rflx Y Plasma Lactic Acid Adrien (0.7-2.0) mmol/L Calcium (8.4-10.2) mg/dL Magnesium (1.6-2.3) mg/dL Total Bilirubin (0.2-1.3) mg/dL AST (14-36) U/L ALT (4-34) U/L Alkaline Phosphatase (38-126) U/L Troponin I (0.000-0.034) ng/mL Total Protein (6.3-8.2) g/dL Albumin (3.5-5.0) g/dL Stool Occult Blood Positive H (Negative) 10/02/20 12:21 EKG performed wide QRS rhythm left axis deviation. Left bundle-branch block. Ventricular rate of 60 bpm. Verbal detected. Frustration is 182 ms. QT QTc is 516 ms. - Radiology Data Radiology results: report reviewed CT brain shows no acute intracranial hemorrhage or midline shift. There is mild to moderate diffuse age-related cervical atrophy and mild chronic small vessel ischemic change redemonstrated. Chest x-ray shows cardiomegaly with improved central vascular congestion from prior study. No focal infiltrate. Disposition Clinical Impression: GI bleed, Anemia, Afib, Blurred vision, right eye Disposition: ADMITTED IP TO THIS HOSP Condition: Stable Is patient prescribed a controlled substance at d/c from ED?: No Referrals: Edgardo Juarez MD [Primary Care Provider] - 1-2 days Time of Disposition: 14:42
[2020-10-02 12:22] LABS: Albumin 4.3 g/dL (3.5-5.0); Calcium 9.2 mg/dL (8.4-10.2); Potassium 4.7 mmol/L (3.5-5.1); Total Bilirubin 0.2 mg/dL (0.2-1.3); Total Protein 6.6 g/dL (6.3-8.2)
--- NOTE | 2020-10-02 12:42 | CT ---
EXAMINATION TYPE: CT brain wo con DATE OF EXAM: 10/02/2020 HISTORY: right eye blurred vision since Saturday CT DLP: 1129.4 mGycm. Automated Exposure Control for Dose Reduction was Utilized. TECHNIQUE: CT scan of the head is performed without contrast. COMPARISON: CT brain January 26, 2015. FINDINGS: There is no acute intracranial hemorrhage or midline shift identified. There is mild to m oderate diffuse ventricular and sulcal prominence consistent with diffuse age-related cerebral atroph y. There is mild low-attenuation in the periventricular white matter consistent with chronic small v essel ischemic change. Hyperostosis frontalis. Right lens is now not well seen suggesting interval ca taract surgery. Correlate clinically. Paranasal sinuses remain clear. IMPRESSION: No acute intracranial hemorrhage or midline shift. There is mild to moderate diffuse ag e-related cerebral atrophy and mild chronic small vessel ischemic change redemonstrated.
--- NOTE | 2020-10-02 12:43 | XR ---
EXAMINATION TYPE: XR chest 2V DATE OF EXAM: 10/02/2020 COMPARISON: Chest x-ray June 23, 2020 HISTORY: Weakness. TECHNIQUE: Frontal and lateral views of the chest are obtained. FINDINGS: There is no new suspicious focal air space opacity, pleural effusion, or pneumothorax seen . The cardiac silhouette size remains enlarged with dual lead pacemaker and atherosclerotic aortic k nob. The osseous structures remain demineralized. IMPRESSION: Cardiomegaly with improved central vascular congestion from prior study. No new focal in filtrate.
[2020-10-02] MEDS ORDERED: PANTOPRAZOLE 40 MG/10 ML VIAL IVP ONE (13:27)
[2020-10-02] MEDS ORDERED: ACETAMINOPHEN TAB 325 MG TAB PO PRN ×2 (14:43→20:32)
[2020-10-02] MEDS ORDERED: NALOXONE 0.4 MG/ML 1 ML VIAL IV PRN (14:43)
[2020-10-02 14:55] LABS: Appearance,Urine Clear (Clear); Bilirubin,Urine Negative (Negative); Blood,Urine Negative (Negative); Color,Urine Colorless; Glucose,Urine (UA) Negative (Negative); Ketones,Urine Negative (Negative); Leukocyte Esterase,Urine Negative (Negative); Nitrite,Urine Negative (Negative); Protein,Urine Negative (Negative); Specific Gravity,Urine 1.007 (1.001-1.035); Urobilinogen,Urine <2.0 mg/dL (<2.0)
[2020-10-02 16:16] LABS: Glucose,Whole Blood 80 mg/dL (75-99)
[2020-10-02 16:20] LABS: HCT 24.5 % (34.0-46.0); HGB 8.1 gm/dL (11.4-16.0); Hypochromasia Slight; MCH 29.5 pg (25.0-35.0); MCHC 33.2 g/dL (31.0-37.0); MCV 88.7 fL (80.0-100.0); Mean Platelet Volume 6.9; Platelet Count 319 k/uL (150-450); RBC 2.76 m/uL (3.80-5.40); RDW 14.6 % (11.5-15.5); WBC 6.6 k/uL (3.8-10.6)
[2020-10-02] MEDS ORDERED: DEXTROSE 50% SYRINGE 50 ML IVP PRN (17:28)
[2020-10-02] MEDS ORDERED: D5-0.45% NACL WITH KCL 40MEQ/L 1,000 ML IV SCH (19:00)
[2020-10-02 20:19] LABS: Glucose,Whole Blood 101 mg/dL (75-99)
[2020-10-02] MEDS ORDERED: INSULIN DETEMIR (LEVEMIR) 100 UNIT/ML SYR SQ SCH (21:00)
[2020-10-02] MEDS: INSULIN ASPART (NovoLOG) 100 UNIT/ML VIAL SQ SCH (21:09)
[2020-10-02] MEDS: ATORVASTATIN 40 MG TAB PO SCH (21:18)
[2020-10-02] MEDS: METOPROLOL SUCCINATE (ER) 25 MG TAB.ER.24H PO SCH (21:18)
[2020-10-02] MEDS: allopurinoL 100 MG TAB PO SCH (21:18)
--- NOTE | 2020-10-03 00:25 | P.HPIM ---
History of Present Illness This is a pleasant 70 years old female with multiple medical problems as below. She is a patient of Dr. Juarez. Patient presents with generalized weakness of one week duration, with postural symptoms, her Legs give way without specific leg weakness. And dizziness. Patient wants to see her PCP today and noticed that her hemoglobin dropped from 11.8 down to 8.2. No black stool, stated it is a problem. She had mild diarrhea postop today. No vomiting and has good appetite. She denies fever. No chest pain or dyspnea. Also been complaining of from blurriness in her right eye for 2 days duration, no worsening, no headache, no double vision. No weakness or numbness in extremities. No slurred speech. Denies smoking, alcohol or illicit drugs As per ED team during the sign out they contacted Dr. Guy from ophthalmology and he recommends to admit her to medicine and to be on consult. Also ED staff contacted Dr. Juarez and he wanted to be admitted to the medicine and call a consult for GI service, ophthalmology and nephrology services. She follows up with Dr. Calderon Hemodynamics the patient is a stable and she is afebrile. Labs showing WBC 6.6, hemoglobin 8.1 and platelets normal. INR is 1.5. Creatinine is 1.4 which is at baseline, glucose on the low side 80-101. High lactic acid came back to normal, liver enzymes have elevated. Urinalysis is negative EKG showing what QRS rhythm at 60 bpm which is seen in old EKGs. Chest x-ray cardiomegaly with improved vascular congestion. No new infiltrate CT of the brain: No acute process. In the emergency room patient received Protonix and 2 L of normal saline. Pc Maintenance Technician, automobile inspector and GI team were consulted Review of Systems CONSTITUTIONAL: No fever, no malaise, no fatigue. HEENT: No recent visual problems or hearing problems. Denied any sore throat. CARDIOVASCULAR: No orthopnea, PND, no palpitations, no syncope. PULMONARY: No shortness of breath, no cough, no hemoptysis. GASTROINTESTINAL: No diarrhea, no nausea, no vomiting, no abdominal pain. Normoactive bowel sounds. NEUROLOGICAL: No headaches, no weakness, no numbness. HEMATOLOGICAL: Denies any bleeding or petechiae. GENITOURINARY: Denies any burning micturition, frequency, or urgency. MUSCULOSKELETAL/RHEUMATOLOGICAL: Denies any joint pain, swelling, or any muscle pain. ENDOCRINE: Denies any polyuria or polydipsia. Past Medical History Past Medical History: Atrial Fibrillation, Heart Failure, Diabetes Mellitus, Eye Disorder, Hyperlipidemia, Osteoarthritis (OA), Pneumonia, Skin Disorder, Vascular Disorder Additional Past Medical History / Comment(s): Chronic Venous Stasis BLE w/ chronic ulceration of the left lower extremity, current small area still left leg, CAD W/ coronary stenting Rt PDA 2013. History of kidney stones. Pacemaker (Brand:ST DAPHNE). HAS CATARACT LT. WOUNDS LLE, USING SILVADENE CREAM. EDEMA BLE. seeing Dr Calderon r/t kidney function. Small wound LLE. History of Any Multi-Drug Resistant Organisms: None Reported Past Surgical History: Cardiac Ablation, Heart Catheterization, Heart Catheterization With Stent, Hysterectomy, Pacemaker, Tubal Ligation Additional Past Surgical History / Comment(s): states has had mult sx on veins left leg, [place] with cardioversion, varicose vein stripping, one cardiac stent, rt cataract, kidney stone sx, LLE surgery with stent and skin grafting. Past Anesthesia/Blood Transfusion Reactions: No Reported Reaction Additional Past Anesthesia/Blood Transfusion Reaction / Comment(s): PONV 40 PLUS YEARS AGO, AFTER REMOVAL KIDNEY STONE. Date of Last Stent Placement:: November 2013 Type of Cardiac Device: Permanent Pacemaker Device Placement Date:: 10/30/2017 Past Psychological History: No Psychological Hx Reported Additional Psychological History / Comment(s): Pt's spouse had covid end of summer 2019 and d/t covid 05/22/20. Pt now lives alone. She drives. Smoking Status: Never smoker Past Alcohol Use History: None Reported Additional Past Alcohol Use History / Comment(s): Patient is a lifelong nonsmoker. She denies any medical marijuana, marijuana, street drug or alcohol use. She lives at home with her . She has had no recent travel. There are no pets in the home. Past Drug Use History: None Reported - Past Family History Father History Unknown: Yes Family Medical History: No Reported History Additional Family Medical History / Comment(s): Aneurysm, apssed in 2000. Mother Family Medical History: Cancer Additional Family Medical History / Comment(s): Bladder and has since passed. Medications and Allergies Home Medications Medication Instructions Recorded Confirmed Type RX: Aspirin EC [Ecotrin Low Dose] 81 mg PO DAILY 02/27/14 10/02/20 History RX: Edoxaban Tosylate [Savaysa] 60 mg PO DAILY 07/20/16 10/02/20 History RX: Atorvastatin [Lipitor] 40 mg PO HS 10/22/17 10/02/20 History RX: metFORMIN HCL [Glucophage] 850 mg PO TID 10/30/17 10/02/20 History RX: Acetaminophen Tab [Tylenol] 650 mg PO Q6HR PRN tab 11/01/17 10/02/20 Rx RX: Insulin Glargine,Hum.rec.anlog 37 units SQ HS 12/16/17 10/02/20 History [Toujeo Solostar] RX: Liraglutide [Victoza 2-Ishan] 1.8 mg SQ DAILY 12/16/17 10/02/20 History RX: Furosemide [Lasix] 40 mg PO TID 06/04/18 10/02/20 History RX: Ferrous Sulfate [Iron (65 MG 325 mg PO DAILY 01/19/19 10/02/20 History Elemental)] RX: Allopurinol [Zyloprim] 100 mg PO DAILY 03/25/19 10/02/20 History RX: calcitrioL [Calcitriol] 0.5 mcg PO WE 03/25/19 10/02/20 History RX: Sacubitril/Valsartan [Entresto 1 tab PO BID 04/13/19 10/02/20 History 24 mg-26 mg Tablet] RX: Metoprolol Succinate (ER) 50 mg PO DAILY 06/22/20 10/02/20 History [Toprol XL] RX: Metoprolol Succinate [Toprol 25 mg PO HS 06/22/20 10/02/20 History XL] Cholecalciferol [Vitamin D3 (25 25 mcg PO DAILY 10/02/20 10/02/20 History Mcg = 1000 Iu)] Allergies Allergy/AdvReac Type Severity Reaction Status Date / Time Iodinated Contrast Media Allergy Severe THROAT Verified 10/02/20 12:14 [Iodinated Contrast Media - SWELLING Oral and] iodine Allergy Severe THROAT Verified 10/02/20 12:14 SWELLING, RASH shellfish derived Allergy Severe THROAT Verified 10/02/20 12:14 SWELLING, RASH cefazolin sodium Allergy Dyspnea Verified 10/02/20 12:14 [From Kezol] Latex, Natural Rubber Allergy Rash/Hives Verified 10/02/20 12:14 levofloxacin [From Levaquin] Allergy Rash/Hives Verified 10/02/20 12:14 piperacillin sodium Allergy THROAT Verified 10/02/20 12:14 [From Zosyn] SWELL, RASH tazobactam sodium Allergy THROAT Verified 10/02/20 12:14 [From Zosyn] SWELL, RASH verapamil AdvReac Severe Hallucinati Verified 10/02/20 12:14 ons seafood Allergy Severe throat Uncoded 06/22/20 10:33 swelling Physical Exam Vitals: Vital Signs Temp Pulse Pulse Resp BP BP Pulse Ox 10/02/20 19:39 97.8 F 60 18 138/74 97 10/02/20 19:26 60 10/02/20 17:53 97.9 F 60 18 160/61 99 10/02/20 16:15 60 14 146/66 95 10/02/20 10:38 98.7 F 60 18 132/69 98 Intake and Output 10/02/20 10/02/20 10/03/20 14:59 22:59 06:59 Other: Voiding Method Toilet # Voids 1 Weight 105.233 kg 105.233 kg GENERAL: The patient is alert and oriented x3, not in any acute distress. Well developed, well nourished. HEENT: Pupils are round and equally reacting to light. EOMI. No scleral icterus. No conjunctival pallor. Normocephalic, atraumatic. No pharyngeal erythema. No thyromegaly. CARDIOVASCULAR: S1 and S2 present. No murmurs, rubs, or gallops. PULMONARY: Chest is clear to auscultation, no wheezing or crackles. ABDOMEN: Soft, nontender, nondistended, normoactive bowel sounds. No palpable organomegaly. MUSCULOSKELETAL: No joint swelling or deformity. EXTREMITIES: No cyanosis, clubbing, or pedal edema. NEUROLOGICAL: Gross neurological examination did not reveal any focal deficits. SKIN: No rashes. No petechiae Results CBC & Chem 7: 10/02/20 16:05 10/02/20 11:26 Labs: Abnormal Lab Results - Last 24 Hours (Table) 10/02/20 10/02/20 10/02/20 Range/Units 11:16 11:26 11:26 RBC 2.86 L (3.80-5.40) m/uL Hgb 8.3 L (11.4-16.0) gm/dL Hct 25.5 L (34.0-46.0) % PT 14.7 H (9.0-12.0) sec INR 1.5 H (<1.2) BUN (7-17) mg/dL Creatinine (0.52-1.04) mg/dL Glucose (74-99) mg/dL POC Glucose (mg/dL) 141 H (75-99) mg/dL Plasma Lactic Acid Adrien (0.7-2.0) mmol/L Stool Occult Blood (Negative) 10/02/20 10/02/20 10/02/20 Range/Units 11:26 11:26 11:26 RBC (3.80-5.40) m/uL Hgb (11.4-16.0) gm/dL Hct (34.0-46.0) % PT (9.0-12.0) sec INR (<1.2) BUN 51 H (7-17) mg/dL Creatinine 1.45 H (0.52-1.04) mg/dL Glucose 124 H (74-99) mg/dL POC Glucose (mg/dL) (75-99) mg/dL Plasma Lactic Acid Adrien 3.9 H* (0.7-2.0) mmol/L Stool Occult Blood Positive H (Negative) 10/02/20 10/02/20 Range/Units 16:05 20:17 RBC 2.76 L (3.80-5.40) m/uL Hgb 8.1 L (11.4-16.0) gm/dL Hct 24.5 L (34.0-46.0) % PT (9.0-12.0) sec INR (<1.2) BUN (7-17) mg/dL Creatinine (0.52-1.04) mg/dL Glucose (74-99) mg/dL POC Glucose (mg/dL) 101 H (75-99) mg/dL Plasma Lactic Acid Adrien (0.7-2.0) mmol/L Stool Occult Blood (Negative) Thrombosis Risk Factor Assmnt - Choose All That Apply Any of the Below Risk Factors Present?: Yes Each Factor Represents 1 point: Obesity (BMI >25) Other Risk Factors: Yes Each Risk Factor Represents 2 Points: Age 61-74 years Thrombosis Risk Factor Assessment Total Risk Factor Score: 3 Thrombosis Risk Factor Assessment Level: Moderate Risk Assessment and Plan Assessment: Low hemoglobin, rule out blood loss anemia. Anemia workup. GI consult Blurriness of the right eye, consult ophthalmology Chronic kidney disease, consult nephrology Atrial fibrillation, patient was on savaysa. Status post pacemaker Chronic heart failure Diabetes mellitus Hyperlipidemia History of osteoarthritis history of coronary artery disease status post stent placement Chronic venous ulcers of the lower extremity Plan: This is a pleasant 70 years old female who presents with multiple problems including possible GI bleed, right blurred vision. Monitor the patient closely, continue with IV Protonix, hold anticoagulation and NSAIDs. Consult GI service, anemia workup, consult ophthalmology for her right coronary artery, consult nephrology for her CK D, Consult wound care for her chronic leg ulcers. Monitor glucose and blood pressure and hemoglobin Labs and medication were reviewed.. Continue same treatment. Continue with symptomatic treatment. Resume home medication. Monitor lytes and vitals. DVT and GI prophylaxis. Further recommendationsas per clinical course of the patient DVT prophylaxis: No anticoagulation for possible GI bleed GI Prophylaxis: Ppi Prognosis is guarded
[2020-10-03 01:14] LABS: Glucose,Whole Blood 95 mg/dL (75-99)
[2020-10-03 06:57] LABS: Basophils % (A) 0 %; Eosinophils # (A) 0.3 k/uL (0-0.7); Eosinophils % (A) 5 %; HCT 23.8 % (34.0-46.0); HGB 7.9 gm/dL (11.4-16.0); Hypochromasia Moderate; Lymphocytes # (A) 1.3 k/uL (1.0-4.8); Lymphocytes % (A) 23 %; MCH 29.5 pg (25.0-35.0); MCHC 33.2 g/dL (31.0-37.0); MCV 88.7 fL (80.0-100.0); Mean Platelet Volume 6.9; Monocytes # (A) 0.4 k/uL (0-1.0); Monocytes % (A) 8 %; Neutrophils # (A) 3.4 k/uL (1.3-7.7); Neutrophils % (A) 62 %; Platelet Count 320 k/uL (150-450); RBC 2.69 m/uL (3.80-5.40); RDW 14.5 % (11.5-15.5); WBC 5.6 k/uL (3.8-10.6)
[2020-10-03 07:05] LABS: Glucose,Whole Blood 119 mg/dL (75-99)
[2020-10-03 07:11] LABS: African American GFR (CKD) 47 (>60 ml/min/1.73 sqM); Anion Gap 7 mmol/L; Blood Urea Nitrogen 40 mg/dL (7-17); Calcium 8.9 mg/dL (8.4-10.2); Carbon Dioxide 28 mmol/L (22-30); Chloride 107 mmol/L (98-107); Glucose 112 mg/dL (74-99); Non-African American GFR(CKD) 41 (>60 ml/min/1.73 sqM); Potassium 4.4 mmol/L (3.5-5.1); Sodium 142 mmol/L (137-145)
[2020-10-03] MEDS: INSULIN ASPART (NovoLOG) 100 UNIT/ML VIAL SQ SCH ×4 (07:34→23:35)
[2020-10-03] MEDS: PANTOPRAZOLE 40 MG/10 ML VIAL IV SCH (07:44)
[2020-10-03] MEDS: FERROUS SULFATE 325 MG TAB PO SCH (07:45)
[2020-10-03] MEDS: CHOLECALCIFEROL 25 MCG (1000 IU) TABLET PO SCH (07:45)
[2020-10-03] MEDS: METOPROLOL SUCCINATE (ER) 50 MG TAB.ER.24H PO SCH (07:45)
[2020-10-03] MEDS: allopurinoL 100 MG TAB PO SCH (07:45)
[2020-10-03] MEDS ORDERED: NON FORMULARY DRUG (Liraglutide [Victoza 2-Pak] 0.6 MG/0.1 ML Pen.Injctr) SQ SCH (09:00)
[2020-10-03] MEDS ORDERED: EDOXABAN TOSYLATE 60 MG TABLET PO SCH (09:00)
--- NOTE | 2020-10-03 11:05 | P.NPCON ---
History of Present Illness - Reason for Consult chronic renal failure - History of Present Illness Reason for consult she: Chronic kidney disease History of present illness: Patient is a 70-year-old female seen in renal consultation for chronic kidney disease. Patient has chronic kidney disease stage IIIB with baseline creatinine in the range of 1.2-1.5. GFR is stable. Patient presented to the hospital due to generalized weakness. She also complained of fogginess in the right eye along with blurry vision. Patient states her vision has improved but not completely back to baseline. Hemoglobin was 7.9 this morning. Patient denies any melena. Patient states he did have some blood upon wiping yesterday. No hematuria. Good urine output. No vomiting or diarrhea. Patient does have history of CHF and has a pacemaker. UA is benign. No edema. Blood pressure stable. She does have history of diabetes. Vital signs are stable. General: The patient appeared well nourished and normally developed. HEENT: Head exam is unremarkable. Neck is without jugular venous distension. LUNGS: Breath sounds decreased. HEART: Rate and Rhythm are regular. ABDOMEN: Soft, nontender. EXTREMITITES: No edema. Past Medical History Past Medical History: Atrial Fibrillation, Heart Failure, Diabetes Mellitus, Eye Disorder, Hyperlipidemia, Osteoarthritis (OA), Pneumonia, Skin Disorder, Vascular Disorder Additional Past Medical History / Comment(s): Chronic Venous Stasis BLE w/ chronic ulceration of the left lower extremity, current small area still left leg, CAD W/ coronary stenting Rt PDA 2013. History of kidney stones. Pacemaker (Brand:ST DAPHNE). HAS CATARACT LT. WOUNDS LLE, USING SILVADENE CREAM. EDEMA BLE. seeing Dr Calderon r/t kidney function. Small wound LLE. History of Any Multi-Drug Resistant Organisms: None Reported Past Surgical History: Cardiac Ablation, Heart Catheterization, Heart Catheterization With Stent, Hysterectomy, Pacemaker, Tubal Ligation Additional Past Surgical History / Comment(s): states has had mult sx on veins left leg, [place] with cardioversion, varicose vein stripping, one cardiac stent, rt cataract, kidney stone sx, LLE surgery with stent and skin grafting. Past Anesthesia/Blood Transfusion Reactions: No Reported Reaction Additional Past Anesthesia/Blood Transfusion Reaction / Comment(s): PONV 40 PLUS YEARS AGO, AFTER REMOVAL KIDNEY STONE. Date of Last Stent Placement:: November 2013 Type of Cardiac Device: Permanent Pacemaker Device Placement Date:: 10/30/2017 Past Psychological History: No Psychological Hx Reported Additional Psychological History / Comment(s): Pt's spouse had covid end of summer 2019 and d/t covid 05/22/20. Pt now lives alone. She drives. Smoking Status: Never smoker Past Alcohol Use History: None Reported Additional Past Alcohol Use History / Comment(s): Patient is a lifelong nonsmoker. She denies any medical marijuana, marijuana, street drug or alcohol use. She lives at home with her . She has had no recent travel. There are no pets in the home. Past Drug Use History: None Reported - Past Family History Father History Unknown: Yes Family Medical History: No Reported History Additional Family Medical History / Comment(s): Aneurysm, apssed in 2000. Mother Family Medical History: Cancer Additional Family Medical History / Comment(s): Bladder and has since passed. Medications and Allergies Home Medications Medication Instructions Recorded Confirmed Type Aspirin EC [Ecotrin Low Dose] 81 mg PO DAILY 02/27/14 10/02/20 History Edoxaban Tosylate [Savaysa] 60 mg PO DAILY 07/20/16 10/02/20 History Atorvastatin [Lipitor] 40 mg PO HS 10/22/17 10/02/20 History metFORMIN HCL [Glucophage] 850 mg PO TID 10/30/17 10/02/20 History Acetaminophen Tab [Tylenol] 650 mg PO Q6HR PRN tab 11/01/17 10/02/20 Rx Insulin Glargine,Hum.rec.anlog 37 units SQ HS 12/16/17 10/02/20 History [Dorothy Astorga] Liraglutide [Victoza 2-Ishan] 1.8 mg SQ DAILY 12/16/17 10/02/20 History Furosemide [Lasix] 40 mg PO TID 06/04/18 10/02/20 History Ferrous Sulfate [Iron (65 MG 325 mg PO DAILY 01/19/19 10/02/20 History Elemental)] Allopurinol [Zyloprim] 100 mg PO DAILY 03/25/19 10/02/20 History calcitrioL [Calcitriol] 0.5 mcg PO WE 03/25/19 10/02/20 History Sacubitril/Valsartan [Entresto 24 1 tab PO BID 04/13/19 10/02/20 History mg-26 mg Tablet] Metoprolol Succinate (ER) [Toprol 50 mg PO DAILY 06/22/20 10/02/20 History XL] Metoprolol Succinate [Toprol XL] 25 mg PO HS 06/22/20 10/02/20 History Cholecalciferol [Vitamin D3 (25 25 mcg PO DAILY 10/02/20 10/02/20 History Mcg = 1000 Iu)] Allergies Allergy/AdvReac Type Severity Reaction Status Date / Time Iodinated Contrast Media Allergy Severe THROAT Verified 10/02/20 12:14 [Iodinated Contrast Media - SWELLING Oral and] iodine Allergy Severe THROAT Verified 10/02/20 12:14 SWELLING, RASH shellfish derived Allergy Severe THROAT Verified 10/02/20 12:14 SWELLING, RASH cefazolin sodium Allergy Dyspnea Verified 10/02/20 12:14 [From Kefzol] Latex, Natural Rubber Allergy Rash/Hives Verified 10/02/20 12:14 levofloxacin [From Levaquin] Allergy Rash/Hives Verified 10/02/20 12:14 piperacillin sodium Allergy THROAT Verified 10/02/20 12:14 [From Zosyn] SWELL, RASH tazobactam sodium Allergy THROAT Verified 10/02/20 12:14 [From Zosyn] SWELL, RASH verapamil AdvReac Severe Hallucinati Verified 10/02/20 12:14 ons seafood Allergy Severe throat Uncoded 06/22/20 10:33 swelling Physical Exam Vitals: Vital Signs Temp Pulse Pulse Resp BP BP Pulse Ox 10/03/20 08:00 16 10/03/20 07:52 96 10/03/20 07:00 97.8 F 60 16 140/62 97 10/03/20 01:08 98.1 F 60 16 115/64 99 10/02/20 19:39 97.8 F 60 18 138/74 97 10/02/20 19:26 60 10/02/20 17:53 97.9 F 60 18 160/61 99 10/02/20 16:15 60 14 146/66 95 Intake and Output 10/02/20 10/03/20 10/03/20 22:59 06:59 14:59 Other: Voiding Method Toilet Toilet # Voids 1 4 Weight 105.233 kg Results - Lab Results Most recent lab results Calcium 8.9 mg/dL (8.4-10.2) 10/03/20 06:12 Magnesium 2.0 mg/dL (1.6-2.3) 10/02/20 11:26 10/03/20 06:12 10/03/20 06:12 Assessment and Plan Plan: Assessment: 1. Chronic kidney disease stage IIIB with baseline creatinine in the range of 1.2-1.5. Etiology is nephrosclerosis. UA benign. 2. Anemia of chronic kidney disease. Also concern for GI bleed. GI consulted. 3. Diabetes mellitus. 4. Chronic kidney disease mineral bone disease maintained on calcitriol. 5. Chronic systolic CHF. Plan: Check iron studies. Maintain half-normal saline. Remove potassium supplementation. Add Aranesp. Avoid nephrotoxins. Diuretics held. Thank you for the consultation. I will continue to follow patient with you during her hospital stay.
[2020-10-03] MEDS: SODIUM CHLORIDE 0.45% 1,000 ML IV SCH ×2 (11:31→13:28)
[2020-10-03 11:46] LABS: % Iron Saturation 4.64 (12.00-45.00); Ferritin 9.8 ng/mL (10.0-291.0); Folate, Serum >24.0 ng/mL; Iron 18 ug/dL (50-170); Total Iron Binding Capacity 388 ug/dL (228-460)
[2020-10-03] MEDS ORDERED: DARBEPOETIN ALFA 40 MCG/0.4 ML SYRINGE SQ SCH (12:00)
[2020-10-03 12:06] LABS: Glucose,Whole Blood 198 mg/dL (75-99)
--- NOTE | 2020-10-03 13:22 | P.PN ---
Subjective This is a pleasant 70 years old female with multiple medical problems as below. She is a patient of Dr. Juarez. Patient presents with generalized weakness of one week duration, with postural symptoms, her Legs give way without specific leg weakness. And dizziness. Patient wants to see her PCP today and noticed that her hemoglobin dropped from 11.8 down to 8.2. No black stool, stated it is a problem. She had mild diarrhea postop today. No vomiting and has good appetite. She denies fever. No chest pain or dyspnea. Also been complaining of from blurriness in her right eye for 2 days duration, no worsening, no headache, no double vision. No weakness or numbness in extremities. No slurred speech. Denies smoking, alcohol or illicit drugs As per ED team during the sign out they contacted Dr. Guy from ophthalmology and he recommends to admit her to medicine and to be on consult. Also ED staff contacted Dr. Juarez and he wanted to be admitted to the medicine and call a consult for GI service, ophthalmology and nephrology services. She follows up with Dr. Calderon Hemodynamics the patient is a stable and she is afebrile. Labs showing WBC 6.6, hemoglobin 8.1 and platelets normal. INR is 1.5. Creatinine is 1.4 which is at baseline, glucose on the low side 80-101. High lactic acid came back to normal, liver enzymes have elevated. Urinalysis is negative EKG showing what QRS rhythm at 60 bpm which is seen in old EKGs. Chest x-ray cardiomegaly with improved vascular congestion. No new infiltrate CT of the brain: No acute process. In the emergency room patient received Protonix and 2 L of normal saline. Tool Maker Bench, artificial foliage arranger and GI team were consulted 10/03/2020 Patient was seen in walking in the room today, however she still complaining from generalized weakness, her weakness is all over and symmetrical. She denies numbness or other neurological symptoms. She didn't notice any episodes of GI bleed. Her right eye is still blurry. Patient has been seen by artificial foliage arranger this morning. Hemodynamically stable. Hemoglobin is stable at 7.9. Workup showed iron deficiency anemia and low vitamin B12 around 110. Replacement started. Nephrology input is appreciated, continue with IV fluids. In the meantime patient remains on Protonix 40 mg IV daily. [email or web address] is on hold Objective - Vital Signs Vital signs: Vital Signs Temp 97.8 F 10/03/20 07:00 Pulse 60 10/03/20 07:00 Resp 16 10/03/20 08:00 BP 140/62 10/03/20 07:00 Pulse Ox 96 10/03/20 07:52 Intake & Output 10/02/20 10/03/20 10/03/20 18:59 06:59 18:59 Weight 105.233 kg Other: Voiding Method Toilet Toilet # Voids 4 - Exam GENERAL: The patient is alert and oriented x3, not in any acute distress. Well developed, well nourished. HEENT: Pupils are round and equally reacting to light. EOMI. No scleral icterus. No conjunctival pallor. Normocephalic, atraumatic. No pharyngeal erythema. No thyromegaly. CARDIOVASCULAR: S1 and S2 present. No murmurs, rubs, or gallops. PULMONARY: Chest is clear to auscultation, no wheezing or crackles. ABDOMEN: Soft, nontender, nondistended, normoactive bowel sounds. No palpable organomegaly. MUSCULOSKELETAL: No joint swelling or deformity. EXTREMITIES: No cyanosis, clubbing, or pedal edema. NEUROLOGICAL: Gross neurological examination did not reveal any focal deficits. SKIN: No rashes. no petechiae. - Labs CBC & Chem 7: 10/03/20 06:12 10/03/20 06:12 Labs: Abnormal Lab Results - Last 24 Hours (Table) 10/02/20 10/02/20 10/03/20 Range/Units 16:05 20:17 06:12 RBC 2.76 L 2.69 L (3.80-5.40) m/uL Hgb 8.1 L 7.9 L (11.4-16.0) gm/dL Hct 24.5 L 23.8 L (34.0-46.0) % BUN (7-17) mg/dL Creatinine (0.52-1.04) mg/dL Glucose (74-99) mg/dL POC Glucose (mg/dL) 101 H (75-99) mg/dL Iron (50-170) ug/dL % Saturation (12.00-45.00) Ferritin (10.0-291.0) ng/mL Vitamin B12 (200.0-944.0) pg/mL 10/03/20 10/03/20 10/03/20 Range/Units 06:12 07:02 07:04 RBC (3.80-5.40) m/uL Hgb (11.4-16.0) gm/dL Hct (34.0-46.0) % BUN 40 H (7-17) mg/dL Creatinine 1.34 H (0.52-1.04) mg/dL Glucose 112 H (74-99) mg/dL POC Glucose (mg/dL) 119 H (75-99) mg/dL Iron 18 L (50-170) ug/dL % Saturation 4.64 L (12.00-45.00) Ferritin 9.8 L (10.0-291.0) ng/mL Vitamin B12 110.0 L (200.0-944.0) pg/mL 10/03/20 Range/Units 12:04 RBC (3.80-5.40) m/uL Hgb (11.4-16.0) gm/dL Hct (34.0-46.0) % BUN (7-17) mg/dL Creatinine (0.52-1.04) mg/dL Glucose (74-99) mg/dL POC Glucose (mg/dL) 198 H (75-99) mg/dL Iron (50-170) ug/dL % Saturation (12.00-45.00) Ferritin (10.0-291.0) ng/mL Vitamin B12 (200.0-944.0) pg/mL Assessment and Plan Assessment: Iron deficiency anemia GI consult Low vitamin B12, been placed Blurriness of the right eye, consult ophthalmology Chronic kidney disease, consult nephrology Atrial fibrillation, patient was on savaysa. Status post pacemaker Chronic heart failure Diabetes mellitus Hyperlipidemia History of osteoarthritis history of coronary artery disease status post stent placement Chronic venous ulcers of the lower extremity Plan: This is a pleasant 70 years old female who presents with multiple problems including possible GI bleed, right blurred vision. Monitor the patient closely, continue with IV Protonix, hold anticoagulation and NSAIDs. Consult GI service, consult ophthalmology for her right coronary artery, consult nephrology for her CKD, Consult wound care for her chronic leg ulcers. Monitor glucose and blood pressure and hemoglobin Labs and medication were reviewed.. Continue same treatment. Continue with symptomatic treatment. Resume home medication. Monitor lytes and vitals. DVT and GI prophylaxis. Further recommendationsas per clinical course of the patie nt DVT prophylaxis: No anticoagulation for possible GI bleed GI Prophylaxis: Ppi Prognosis is guarded
--- NOTE | 2020-10-03 13:23 | P.CONS ---
History of Present Illness - Reason for Consult Consult date: 10/03/20 Wound care - History of Present Illness This is a 70-year-old pleasant female being seen on for nonhealing ulceration to right lower extremity medial aspect and left lower extremity medial acid. Patient states that she has had these ulcerations off and on for the past 2-3 years. The recent ulceration started at [place] May. Patient has been utilizing Silvadene cream with DANDY hoses. However she lost her in May and she is unable to apply the DANDY hoses without assistance. Patient was seen by Dr. Dumnot in the past where he was utilizing a Unna boot for compression. Patient felt that this was not helping and she stopped seeing him. Patient states that the ulcerations will heal and then reopen. Right lower extremity medial aspect ulceration with fatty layer exposure is approximately 3 x 3 x 0.1 cm with a island of epithelialized tissue in the center. Ulceration shows granulation throughout the wound bed with minimal slough. Wound edges are attached to the wound base. DP reviewed and shows scarring. The left medial ulceration has fat layer exposure measuring approximately 0.6 x 0.4 x 0.1 cm granulation seen throughout the wound bed with minimal drainage. Patient's past medical history significant for venous insufficiency, atrial fibrillation, diabetes mellitus, hyperlipidemia. Patient is lifelong nonsmoker Review Of Systems: Constitutional: No fever, no chills, no night sweats. No weight change. No weakness, fatigue or lethargy. No daytime sleepiness. Integumentary:reports wounds, no lesions. No rash or pruritus. No unusual bruising. No change in hair or nails. Physical exam: General Appearance: Alert, cooperative, no distress, appears stated age. Skin: See HPI all other Skin color, texture, tugor normal, no rashes or lesions. Neurologic: Alert oriented x3 Assessment: 1. Nonhealing ulceration right lower extremity medial aspect with fat layer exposure 2. Nonhealing ulceration of left lower extremity medial aspect with fat layer exposure 3. Chronic hypertension with venous insufficiency of bilateral lower extremities with ulcers 4. Diabetes a skin ulcer Plan: 1. Apply collagen, saline moistened gauze, dry gauze, rolled gauze secured paper tape. Wrap with Sumeet wrap change Saturday. Patient would benefit from continued wound care and outpatient setting. We would be happy to see her upon discharge. Discussed with patient utilizing a compression garment such as a CircAid. Patient was agreeable to plan of care. Thank you for the consultation any questions please contact the wound care center DNP note has been reviewed and discussed with Dr. Morocho and the impression and plan of care has been directed as dictated. Past Medical History Past Medical History: Atrial Fibrillation, Heart Failure, Diabetes Mellitus, Eye Disorder, Hyperlipidemia, Osteoarthritis (OA), Pneumonia, Skin Disorder, Vascular Disorder Additional Past Medical History / Comment(s): Chronic Venous Stasis BLE w/ chronic ulceration of the left lower extremity, current small area still left leg, CAD W/ coronary stenting Rt PDA 2013. History of kidney stones. Pacemaker (Brand:ST DAPHNE). HAS CATARACT LT. WOUNDS LLE, USING SILVADENE CREAM. EDEMA BLE. seeing Dr Calderon r/t kidney function. Small wound LLE. History of Any Multi-Drug Resistant Organisms: None Reported Past Surgical History: Cardiac Ablation, Heart Catheterization, Heart Catheterization With Stent, Hysterectomy, Pacemaker, Tubal Ligation Additional Past Surgical History / Comment(s): states has had mult sx on veins left leg, [place] with cardioversion, varicose vein stripping, one cardiac stent, rt cataract, kidney stone sx, LLE surgery with stent and skin grafting. Past Anesthesia/Blood Transfusion Reactions: No Reported Reaction Additional Past Anesthesia/Blood Transfusion Reaction / Comm: PONV 40 PLUS YEARS AGO, AFTER REMOVAL KIDNEY STONE. Date of Last Stent Placement:: November 2013 Type of Cardiac Device: Permanent Pacemaker Device Placement Date:: 10/30/2017 Past Psychological History: No Psychological Hx Reported Additional Psychological History / Comment(s): Pt's spouse had covid end of summer 2019 and d/t covid 05/22/20. Pt now lives alone. She drives. Smoking Status: Never smoker Past Alcohol Use History: None Reported Additional Past Alcohol Use History / Comment(s): Patient is a lifelong nonsmoker. She denies any medical marijuana, marijuana, street drug or alcohol use. She lives at home with her . She has had no recent travel. There are no pets in the home. Past Drug Use History: None Reported - Past Family History Father History Unknown: Yes Family Medical History: No Reported History Additional Family Medical History / Comment(s): Aneurysm, apssed in 2000. Mother Family Medical History: Cancer Additional Family Medical History / Comment(s): Bladder and has since passed. Medications and Allergies Home Medications Medication Instructions Recorded Confirmed Type Aspirin EC [Ecotrin Low Dose] 81 mg PO DAILY 02/27/14 10/02/20 History Edoxaban Tosylate [Savaysa] 60 mg PO DAILY 07/20/16 10/02/20 History Atorvastatin [Lipitor] 40 mg PO HS 10/22/17 10/02/20 History metFORMIN HCL [Glucophage] 850 mg PO TID 10/30/17 10/02/20 History Acetaminophen Tab [Tylenol] 650 mg PO Q6HR PRN tab 11/01/17 10/02/20 Rx Insulin Glargine,Hum.rec.anlog 37 units SQ HS 12/16/17 10/02/20 History [Touherrera Solostar] Liraglutide [Victoza 2-Ishan] 1.8 mg SQ DAILY 12/16/17 10/02/20 History Furosemide [Lasix] 40 mg PO TID 06/04/18 10/02/20 History Ferrous Sulfate [Iron (65 MG 325 mg PO DAILY 01/19/19 10/02/20 History Elemental)] Allopurinol [Zyloprim] 100 mg PO DAILY 03/25/19 10/02/20 History calcitrioL [Calcitriol] 0.5 mcg PO WE 03/25/19 10/02/20 History Sacubitril/Valsartan [Entresto 24 1 tab PO BID 04/13/19 10/02/20 History mg-26 mg Tablet] Metoprolol Succinate (ER) [Toprol 50 mg PO DAILY 06/22/20 10/02/20 History XL] Metoprolol Succinate [Toprol XL] 25 mg PO HS 06/22/20 10/02/20 History Cholecalciferol [Vitamin D3 (25 25 mcg PO DAILY 10/02/20 10/02/20 History Mcg = 1000 Iu)] Allergies Allergy/AdvReac Type Severity Reaction Status Date / Time Iodinated Contrast Media Allergy Severe THROAT Verified 10/02/20 12:14 [Iodinated Contrast Media - SWELLING Oral and] iodine Allergy Severe THROAT Verified 10/02/20 12:14 SWELLING, RASH shellfish derived Allergy Severe THROAT Verified 10/02/20 12:14 SWELLING, RASH cefazolin sodium Allergy Dyspnea Verified 10/02/20 12:14 [From Kefzol] Latex, Natural Rubber Allergy Rash/Hives Verified 10/02/20 12:14 levofloxacin [From Levaquin] Allergy Rash/Hives Verified 10/02/20 12:14 piperacillin sodium Allergy THROAT Verified 10/02/20 12:14 [From Zosyn] SWELL, RASH tazobactam sodium Allergy THROAT Verified 10/02/20 12:14 [From Zosyn] SWELL, RASH verapamil AdvReac Severe Hallucinati Verified 10/02/20 12:14 ons seafood Allergy Severe throat Uncoded 06/22/20 10:33 swelling Physical Exam Vitals: Vital Signs Temp Pulse Pulse Resp BP BP Pulse Ox 10/03/20 08:00 16 10/03/20 07:52 96 10/03/20 07:00 97.8 F 60 16 140/62 97 10/03/20 01:08 98.1 F 60 16 115/64 99 10/02/20 19:39 97.8 F 60 18 138/74 97 10/02/20 19:26 60 10/02/20 17:53 97.9 F 60 18 160/61 99 10/02/20 16:15 60 14 146/66 95 Intake and Output 10/02/20 10/03/20 10/03/20 22:59 06:59 14:59 Other: Voiding Method Toilet Toilet # Voids 1 4 Weight 105.233 kg Results CBC & Chem 7: 10/03/20 06:12 10/03/20 06:12 Labs: Abnormal Lab Results - Last 24 Hours (Table) 10/02/20 10/02/20 10/03/20 Range/Units 16:05 20:17 06:12 RBC 2.76 L 2.69 L (3.80-5.40) m/uL Hgb 8.1 L 7.9 L (11.4-16.0) gm/dL Hct 24.5 L 23.8 L (34.0-46.0) % BUN (7-17) mg/dL Creatinine (0.52-1.04) mg/dL Glucose (74-99) mg/dL POC Glucose (mg/dL) 101 H (75-99) mg/dL Iron (50-170) ug/dL % Saturation (12.00-45.00) Ferritin (10.0-291.0) ng/mL Vitamin B12 (200.0-944.0) pg/mL 10/03/20 10/03/20 10/03/20 Range/Units 06:12 07:02 07:04 RBC (3.80-5.40) m/uL Hgb (11.4-16.0) gm/dL Hct (34.0-46.0) % BUN 40 H (7-17) mg/dL Creatinine 1.34 H (0.52-1.04) mg/dL Glucose 112 H (74-99) mg/dL POC Glucose (mg/dL) 119 H (75-99) mg/dL Iron 18 L (50-170) ug/dL % Saturation 4.64 L (12.00-45.00) Ferritin 9.8 L (10.0-291.0) ng/mL Vitamin B12 110.0 L (200.0-944.0) pg/mL 10/03/20 Range/Units 12:04 RBC (3.80-5.40) m/uL Hgb (11.4-16.0) gm/dL Hct (34.0-46.0) % BUN (7-17) mg/dL Creatinine (0.52-1.04) mg/dL Glucose (74-99) mg/dL POC Glucose (mg/dL) 198 H (75-99) mg/dL Iron (50-170) ug/dL % Saturation (12.00-45.00) Ferritin (10.0-291.0) ng/mL Vitamin B12 (200.0-944.0) pg/mL Assessment and Plan (1) Nonhealing ulcer of right lower extremity with fat layer exposed Current Visit: Yes Status: Acute Code(s): L97.912 - NON-PRS CHR ULC UNSP PRT OF R LOW LEG W FAT LAYER EXPOSED SNOMED Code(s): 03591226 (2) Nonhealing ulcer of left lower extremity with fat layer exposed Current Visit: Yes Status: Acute Code(s): L97.922 - NON-PRS CHR ULC UNSP PRT OF L LOW LEG W FAT LAYER EXPOSED SNOMED Code(s): 27220626 (3) Chronic venous hypertension (idiopathic) with ulcer and inflammation of bilateral lower extremity Current Visit: Yes Status: Acute Code(s): I87.333 - CHRONIC VENOUS HTN W ULCER AND INFLAM OF BILATERAL LOW EXTRM; L97.919 - NON-PRS CHRONIC ULC UNSP PRT OF R LOW LEG W UNSP SEVERITY; L97.929 - NON-PRS CHRONIC ULC UNSP PRT OF L LOW LEG W UNSP SEVERITY SNOMED Code(s): 481475442687217 (4) Diabetes with skin ulcer Current Visit: Yes Status: Acute Code(s): E11.622 - TYPE 2 DIABETES MELLITUS WITH OTHER SKIN ULCER; L98.499 - NON-PRESSURE CHRONIC ULCER OF SKIN OF SITES W UNSP SEVERITY SNOMED Code(s): 30037598
[2020-10-03] MEDS: DEXTROSE 5%-0.45% NACL 1,000 ML IV SCH (13:29)
[2020-10-03] MEDS: CYANOCOBALAMIN 1,000 MCG/ML 1 ML VIAL IM SCH (14:11)
--- NOTE | 2020-10-03 15:53 | P.CONS ---
History of Present Illness - Reason for Consult Consult date: 10/03/20 Anemia Requesting physician: Huan E Sheet - Chief Complaint Weakness, abnormal labs - History of Present Illness This is a pleasant 62-year-old white female who presented to the emergency department with complaints of weakness, and abnormal labs with a drop in her hemoglobin. Patient has a history of atrial fibrillation who is on Savaysa and low-dose aspirin. Diabetes mellitus, chronic kidney disease, for lipidemia, vascular disorder, pacemaker, lower extremity wounds. The patient states she was feeling increased weakness in her legs, she started having visual changes in her right eye. She denied any signs or symptoms of GI bleed, denies any black stool or bright red blood per rectum. She did state she had a colonoscopy 4-5 years ago, she had [place] [address] Anthony Adrian where she had cecal polyps, diverticulosis and internal hemorrhoids. She does have a previous history of anemia in the past, does not follow-up with any hematology. She d enies any prior history of peptic ulcer disease or EGD. Today's labs WBC 5.6, hemoglobin 7.9, hematocrit 23.8, platelets 320,000. Anemia panel shows iron 18, TIBC 388, saturation 146, ferritin 9.8, B12 110, folate greater than 26. Review of Systems REVIEW OF SYSTEMS: CARDIOPULMONARY: No chest pain or shortness of breath. Gastrointestinal: No abdominal pain. No nausea or vomiting. No hematemesis, coffee-ground emesis. No rectal bleeding, or melena. GENITOURINARY: No dysuria or hematuria. MUSCULOSKELETAL: Reports normal range of motion., Joint pain. SKIN: No rashes. No jaundice. ENDOCRINE: No chills, fevers. No excessive weight gain or loss. No polydipsia or polyuria. PSYCHIATRIC: Unremarkable. NEUROLOGY: No change in mental status. Denies dizziness, headache. Weakness in lower extremities. ENT: Vision change in right eye. CONSTITUTIONAL: No recent weight loss. No fever, chills, night sweats. Past Medical History Past Medical History: Atrial Fibrillation, Heart Failure, Diabetes Mellitus, Eye Disorder, Hyperlipidemia, Osteoarthritis (OA), Pneumonia, Skin Disorder, Vascu lar Disorder Additional Past Medical History / Comment(s): Chronic Venous Stasis BLE w/ chronic ulceration of the left lower extremity, current small area still left leg, CAD W/ coronary stenting Rt PDA 2013. History of kidney stones. Pacemaker (Brand:ST DAPHNE). HAS CATARACT LT. WOUNDS LLE, USING SILVADENE CREAM. EDEMA BLE. seeing Dr Calderon r/t kidney function. Small wound LLE. History of Any Multi-Drug Resistant Organisms: None Reported Past Surgical History: Cardiac Ablation, Heart Catheterization, Heart Catheteriz ation With Stent, Hysterectomy, Pacemaker, Tubal Ligation Additional Past Surgical History / Comment(s): states has had mult sx on veins left leg, [place] with cardioversion, varicose vein stripping, one cardiac stent, rt cataract, kidney stone sx, LLE surgery with stent and skin grafting. Past Anesthesia/Blood Transfusion Reactions: No Reported Reaction Additional Past Anesthesia/Blood Transfusion Reaction / Comm: PONV 40 PLUS YEARS AGO, AFTER REMOVAL KIDNEY STONE. Date of Last Stent Placement:: November 2013 Type of Cardiac Device: Permanent Pacemaker Device Placement Date:: 10/30/2017 Past Psychological History: No Psychological Hx Reported Additional Psychological History / Comment(s): Pt's spouse had covid end of summer 2019 and d/t covid 05/22/20. Pt now lives alone. She drives. Smoking Status: Never smoker Past Alcohol Use History: None Reported Additional Past Alcohol Use History / Comment(s): Patient is a lifelong nonsmoker. She denies any medical marijuana, marijuana, street drug or alcohol use. She lives at home with her . She has had no recent travel. There are no pets in the home. Past Drug Use History: None Reported - Past Family History Father History Unknown: Yes Family Medical History: No Reported History Additional Family Medical History / Comment(s): Aneurysm, apssed in 2000. Mother Family Medical History: Cancer Additional Family Medical History / Comment(s): Bladder and has since passed. Medications and Allergies Home Medications Medication Instructions Recorded Confirmed Type Aspirin EC [Ecotrin Low Dose] 81 mg PO DAILY 02/27/14 10/02/20 History Edoxaban Tosylate [Savaysa] 60 mg PO DAILY 07/20/16 10/02/20 History Atorvastatin [Lipitor] 40 mg PO HS 10/22/17 10/02/20 History metFORMIN HCL [Glucophage] 850 mg PO TID 10/30/17 10/02/20 History Acetaminophen Tab [Tylenol] 650 mg PO Q6HR PRN tab 11/01/17 10/02/20 Rx Insulin Glargine,Hum.rec.anlog 37 units SQ HS 12/16/17 10/02/20 History [Dorothy Astorga] Liraglutide [Victoza 2-Ishan] 1.8 mg SQ DAILY 12/16/17 10/02/20 History Furosemide [Lasix] 40 mg PO TID 06/04/18 10/02/20 History Ferrous Sulfate [Iron (65 MG 325 mg PO DAILY 01/19/19 10/02/20 History Elemental)] Allopurinol [Zyloprim] 100 mg PO DAILY 03/25/19 10/02/20 History calcitrioL [Calcitriol] 0.5 mcg PO WE 03/25/19 10/02/20 History Sacubitril/Valsartan [Entresto 24 1 tab PO BID 04/13/19 10/02/20 History mg-26 mg Tablet] Metoprolol Succinate (ER) [Toprol 50 mg PO DAILY 06/22/20 10/02/20 History XL] Metoprolol Succinate [Toprol XL] 25 mg PO HS 06/22/20 10/02/20 History Cholecalciferol [Vitamin D3 (25 25 mcg PO DAILY 10/02/20 10/02/20 History Mcg = 1000 Iu)] Allergies Allergy/AdvReac Type Severity Reaction Status Date / Time Iodinated Contrast Media Allergy Severe THROAT Verified 10/02/20 12:14 [Iodinated Contrast Media - SWELLING Oral and] iodine Allergy Severe THROAT Verified 10/02/20 12:14 SWELLING, RASH shellfish derived Allergy Severe THROAT Verified 10/02/20 12:14 SWELLING, RASH cefazolin sodium Allergy Dyspnea Verified 10/02/20 12:14 [From Kefzol] Latex, Natural Rubber Allergy Rash/Hives Verified 10/02/20 12:14 levofloxacin [From Levaquin] Allergy Rash/Hives Verified 10/02/20 12:14 piperacillin sodium Allergy THROAT Verified 10/02/20 12:14 [From Zosyn] SWELL, RASH tazobactam sodium Allergy THROAT Verified 10/02/20 12:14 [From Zosyn] SWELL, RASH verapamil AdvReac Severe Hallucinati Verified 10/02/20 12:14 ons seafood Allergy Severe throat Uncoded 06/22/20 10:33 swelling Physical Exam Vitals: Vital Signs Temp Pulse Pulse Resp BP BP Pulse Ox 10/03/20 08:00 16 10/03/20 07:52 96 10/03/20 07:00 97.8 F 60 16 140/62 97 10/03/20 01:08 98.1 F 60 16 115/64 99 10/02/20 19:39 97.8 F 60 18 138/74 97 10/02/20 19:26 60 10/02/20 17:53 97.9 F 60 18 160/61 99 10/02/20 16:15 60 14 146/66 95 10/02/20 10:38 98.7 F 60 18 132/69 98 Intake and Output 10/02/20 10/03/20 10/03/20 22:59 06:59 14:59 Other: Voiding Method Toilet Toilet # Voids 1 4 Weight 105.233 kg General appearance: The patient is alert, oriented, appears in no acute distress. HET: Head is normocephalic and atraumatic. Conjunctiva pink. Sclera anicteric. Oropharynx is clear without lesions. Neck: Supple without lymphadenopathy. Trachea midline. Heart: S1 S2. Regular rate and rhythm. Lungs: Clear to auscultation. Abdomen: Soft, nontender, nondistended with bowel sounds. No guarding or rigidity. Extremities: Normal skin color and turgor. No pedal edema. Neurological: No focal deficits. Alert and oriented 3. Results CBC & Chem 7: 10/03/20 06:12 10/03/20 06:12 Labs: Abnormal Lab Results - Last 24 Hours (Table) 10/02/20 10/02/20 10/02/20 Range/Units 11:16 11:26 11:26 RBC 2.86 L (3.80-5.40) m/uL Hgb 8.3 L (11.4-16.0) gm/dL Hct 25.5 L (34.0-46.0) % PT 14.7 H (9.0-12.0) sec INR 1.5 H (<1.2) BUN (7-17) mg/dL Creatinine (0.52-1.04) mg/dL Glucose (74-99) mg/dL POC Glucose (mg/dL) 141 H (75-99) mg/dL Plasma Lactic Acid Adrien (0.7-2.0) mmol/L Stool Occult Blood (Negative) 10/02/20 10/02/20 10/02/20 Range/Units 11:26 11:26 11:26 RBC (3.80-5.40) m/uL Hgb (11.4-16.0) gm/dL Hct (34.0-46.0) % PT (9.0-12.0) sec INR (<1.2) BUN 51 H (7-17) mg/dL Creatinine 1.45 H (0.52-1.04) mg/dL Glucose 124 H (74-99) mg/dL POC Glucose (mg/dL) (75-99) mg/dL Plasma Lactic Acid Adrien 3.9 H* (0.7-2.0) mmol/L Stool Occult Blood Positive H (Negative) 10/02/20 10/02/20 10/03/20 Range/Units 16:05 20:17 06:12 RBC 2.76 L 2.69 L (3.80-5.40) m/uL Hgb 8.1 L 7.9 L (11.4-16.0) gm/dL Hct 24.5 L 23.8 L (34.0-46.0) % PT (9.0-12.0) sec INR (<1.2) BUN (7-17) mg/dL Creatinine (0.52-1.04) mg/dL Glucose (74-99) mg/dL POC Glucose (mg/dL) 101 H (75-99) mg/dL Plasma Lactic Acid Adrien (0.7-2.0) mmol/L Stool Occult Blood (Negative) 10/03/20 10/03/20 Range/Units 06:12 07:04 RBC (3.80-5.40) m/uL Hgb (11.4-16.0) gm/dL Hct (34.0-46.0) % PT (9.0-12.0) sec INR (<1.2) BUN 40 H (7-17) mg/dL Creatinine 1.34 H (0.52-1.04) mg/dL Glucose 112 H (74-99) mg/dL POC Glucose (mg/dL) 119 H (75-99) mg/dL Plasma Lactic Acid Adrien (0.7-2.0) mmol/L Stool Occult Blood (Negative) Assessment and Plan (1) Anemia Narrative/Plan: 70-year-old female who presented to the emergency department with complaints of weakness and drop in her hemoglobin. She has a past medical history of anemia, she is also has history of atrial fibrillation on Savaysa Evelyn status post pacemaker, runny artery disease status post stents, diabetes mellitus, and chronic kidney disease. She was known to have a hemoglobin of 7.9. Iron study showed iron deficiency anemia. Patient's last colonoscopy was in 2014 which was significant for cecal polyp, diverticulosis, and internal hemorrhoids. She has never had workup for an upper endoscopy. No previous history of peptic ulcer disease or noted GERD. Plan is for upper and lower endoscopy for further evaluation of anemia tomorrow. Patient will have bowel prep this evening. Current Visit: Yes Status: Acute Code(s): D64.9 - ANEMIA, UNSPECIFIED SNOMED Code(s): 558976693 (2) Chronic kidney disease Current Visit: Yes Status: Acute Code(s): N18.9 - CHRONIC KIDNEY DISEASE, UNSPECIFIED SNOMED Code(s): 403902517 (3) Afib Current Visit: Yes Status: Acute Code(s): I48.91 - UNSPECIFIED ATRIAL FIBRILLATION SNOMED Code(s): 88884861 (4) Diabetes Current Visit: No Status: Acute Code(s): E11.9 - TYPE 2 DIABETES MELLITUS WITHOUT COMPLICATIONS SNOMED Code(s): 50223267 Plan: Repeat CBC in the morning Clear liquid diet, nothing by mouth after midnight Bowel prep this evening Protonix 40 mg twice a day Hold Savaysa IV iron ordered Will proceed with EGD and colonoscopy tomorrow, procedures discussed with patient including risks of procedures and patient seemingly understands and would like to proceed. Thank you for this consultation we will continue to follow Dr. Dennis Fajardo I agree with the dictator's note, documented as a scribe by May Hodges.
[2020-10-03] MEDS ORDERED: PEG 3350-NA SULF,BICARB,CL/KCL 4,000 ML BOTTLE PO ONE (16:00)
[2020-10-03 17:22] LABS: Glucose,Whole Blood 80 mg/dL (75-99)
[2020-10-03] MEDS ORDERED: LIDOCAINE 1% (10MG/ML) FOR IV START INTRADERMA PRN (17:55)
[2020-10-03] MEDS: LACTATED RINGERS 1,000 ML IV SCH (18:04)
[2020-10-03 22:39] LABS: Glucose,Whole Blood 124 mg/dL (75-99)
[2020-10-03] MEDS: ONDANSETRON 4 MG/2 ML VIAL IVP PRN (23:21)
[2020-10-03] MEDS: METOPROLOL SUCCINATE (ER) 25 MG TAB.ER.24H PO SCH (23:21)
[2020-10-03] MEDS: ATORVASTATIN 40 MG TAB PO SCH (23:21)
[2020-10-04 05:34] LABS: Basophils % (A) 0 %; Eosinophils # (A) 0.3 k/uL (0-0.7); Eosinophils % (A) 5 %; HCT 24.9 % (34.0-46.0); HGB 7.9 gm/dL (11.4-16.0); Hypochromasia Moderate; Lymphocytes # (A) 1.3 k/uL (1.0-4.8); Lymphocytes % (A) 25 %; MCH 28.3 pg (25.0-35.0); MCHC 31.8 g/dL (31.0-37.0); Mean Platelet Volume 6.9; Monocytes # (A) 0.5 k/uL (0-1.0); Monocytes % (A) 10 %; Neutrophils % (A) 57 %; Platelet Count 303 k/uL (150-450); RDW 14.5 % (11.5-15.5); WBC 5.2 k/uL (3.8-10.6)
[2020-10-04 05:42] LABS: ALT 11 U/L (4-34); AST 20 U/L (14-36); African American GFR (CKD) 56 (>60 ml/min/1.73 sqM); Albumin 3.6 g/dL (3.5-5.0); Albumin/Globulin Ratio 1.6; Alkaline Phosphatase 62 U/L (38-126); Anion Gap 6 mmol/L; Blood Urea Nitrogen 28 mg/dL (7-17); Calcium 8.6 mg/dL (8.4-10.2); Carbon Dioxide 30 mmol/L (22-30); Chloride 103 mmol/L (98-107); Globulin 2.3 g/dL; Glucose 121 mg/dL (74-99); Magnesium 1.9 mg/dL (1.6-2.3); Non-African American GFR(CKD) 49 (>60 ml/min/1.73 sqM); Potassium 4.4 mmol/L (3.5-5.1); Sodium 139 mmol/L (137-145); Total Bilirubin 0.3 mg/dL (0.2-1.3); Total Protein 5.9 g/dL (6.3-8.2)
[2020-10-04 07:03] LABS: Glucose,Whole Blood 144 mg/dL (75-99)
[2020-10-04] MEDS: INSULIN ASPART (NovoLOG) 100 UNIT/ML VIAL SQ SCH ×4 (07:21→21:29)
[2020-10-04] MEDS: PANTOPRAZOLE 40 MG/10 ML VIAL IV SCH (07:29)
[2020-10-04] MEDS: DEXTROSE 5%-0.45% NACL 1,000 ML IV SCH ×2 (07:30→21:30)
[2020-10-04] MEDS: SODIUM FERRIC GLUCONAT-SUCROSE 125 MG in SODIUM CHLORIDE 0.9% 100 ML IVPB SCH (09:06)
--- NOTE | 2020-10-04 11:08 | P.PN ---
Subjective Patient is seen in follow-up for chronic any disease. Renal function better. Maintain on half normal saline. Good urine output. Vital signs are stable. General: The patient appeared well nourished and normally developed. HEENT: Head exam is unremarkable. Neck is without jugular venous distension. LUNGS: Breath sounds decreased. HEART: Rate and Rhythm are regular. ABDOMEN: Soft, no distention. EXTREMITITES: No edema. Objective - Vital Signs Vital signs: Vital Signs Temp 97.9 F 10/04/20 07:00 Pulse 62 10/04/20 08:00 Resp 16 10/04/20 07:00 BP 116/65 10/04/20 07:00 Pulse Ox 95 10/04/20 07:00 Intake & Output 10/03/20 10/04/20 10/04/20 18:59 06:59 18:59 Intake Total 300 1800 Balance 300 1800 Intake: Intake, IV Titration 300 600 Amount D5-0.45% NaCl with KCl 600 40Meq/l 1,000 ml @ 50 mls /hr IV .Q20H [place] Rx#: [id number] Dextrose 5%-0.45% NaCl 1, 300 000 ml @ 50 mls/hr IV . Q20H [place] Rx#:[id number] Oral 1200 Other: Voiding Method Toilet Toilet Bedside Commode # Voids 4 - Labs CBC & Chem 7: 10/04/20 04:40 10/04/20 04:40 Labs: Abnormal Lab Results - Last 24 Hours (Table) 10/03/20 10/03/20 10/03/20 Range/Units 07:02 12:04 22:37 RBC (3.80-5.40) m/uL Hgb (11.4-16.0) gm/dL Hct (34.0-46.0) % BUN (7-17) mg/dL Creatinine (0.52-1.04) mg/dL Glucose (74-99) mg/dL POC Glucose (mg/dL) 198 H 124 H (75-99) mg/dL Iron 18 L (50-170) ug/dL % Saturation 4.64 L (12.00-45.00) Ferritin 9.8 L (10.0-291.0) ng/mL Total Protein (6.3-8.2) g/dL Vitamin B12 110.0 L (200.0-944.0) pg/mL 10/04/20 10/04/20 10/04/20 Range/Units 04:40 04:40 07:01 RBC 2.80 L (3.80-5.40) m/uL Hgb 7.9 L (11.4-16.0) gm/dL Hct 24.9 L (34.0-46.0) % BUN 28 H (7-17) mg/dL Creatinine 1.16 H (0.52-1.04) mg/dL Glucose 121 H (74-99) mg/dL POC Glucose (mg/dL) 144 H (75-99) mg/dL Iron (50-170) ug/dL % Saturation (12.00-45.00) Ferritin (10.0-291.0) ng/mL Total Protein 5.9 L (6.3-8.2) g/dL Vitamin B12 (200.0-944.0) pg/mL Assessment and Plan Plan: Assessment: 1. Chronic kidney disease stage IIIB with baseline creatinine in the range of 1.2-1.5. Etiology is nephrosclerosis. UA benign. GFR at baseline. 2. Anemia of chronic kidney disease. Iron deficiency noted. Maintained on Aranesp. Also concern for GI bleed. Scheduled for EGD and colonoscopy today. 3. Diabetes mellitus. 4. Chronic kidney disease mineral bone disease maintained on calcitriol. 5. Chronic systolic CHF. Plan: Maintain IV iron. Maintain half-normal saline. Hep-Lock once oral diet resumed. Avoid nephrotoxins. Diuretics held.
[2020-10-04 11:50] LABS: Glucose,Whole Blood 180 mg/dL (75-99)
[2020-10-04] MEDS ORDERED: LIDOCAINE 1% INJ 10MG/ML (20 ML MDV) ONE (13:58)
[2020-10-04] MEDS ORDERED: PROPOFOL 10 MG/ML 20 ML VIAL IV ONE (13:58)
[2020-10-04] MEDS ORDERED: IV FLUID CONTINUATION 700 ML IV ONE (14:00)
--- NOTE | 2020-10-04 14:27 | P.PCN ---
Date of Procedure: 10/04/20 Procedure(s) Performed: Brief history: Patient is a pleasant 70-year-old white female admitted hospital with symptomatic anemia and hemoglobin of 7.9 g/dL. she denies any active GI bleed She is hence scheduled for an upper endoscopy as well as colonoscopy to evaluate further. Procedure performed: Esophagogastroduodenoscopy biopsy Colonoscopy Preoperative diagnosis: Symptomatic anemia and hemoglobin of 7.5 g/dL Anesthesia: MAC Procedure: After informed consent was obtained from the patient was brought into the endoscopy unit and IV sedation was administered by anesthesia under continuous monitoring. Initially upper endoscopy was done. The Olympus GF 160 video endoscope was inserted inserted into the mouth and esophagus intubated without any difficulty and was gradually advanced into the stomach and duodenum and carefully examined. The bulb and second part of the duodenum appeared normal. Abscesses were done from the duodenum to rule out celiac disease. The scope was then withdrawn into the stomach adequately insufflated with air and upon careful examination the antrum and body, had mild diffuse gastritis and biopsies were done from this area. The cardia and fundus appeared normal. The scope was then withdrawn into the esophagus. The GE junction was located at 40 cm to the incisors. It appeared regular with no erythema erosions or ulcerations. Rest of the esophagus appeared normal. Patient tolerated the procedure well. At this time the patient continued to remain sedation. Initial digital rectal examination was normal. Olympus CF 160 video colonoscope was then inserted into the rectum and gradually advanced to the cecum without any difficulty. Careful examination was performed as the scope was gradually being withdrawn. The prep was excellent. The cecum, ascending colon, transverse colon, descending colon, sigmoid colon and rectum appeared normal. Retroflexion was performed in the rectum and no lesions were noted. Patient tolerated the procedure well. Impression: 1 Upper endoscopy revealed diffuse gastritis but no evidence of esophagitis or peptic ulcer disease] 2 Colonoscopy was within normal limits with no evidence of colitis or colorectal neoplasia] Recommendations: Findings of this examination were discussed with the patient. She was advised to follow with the biopsy results. Diet will be advanced as tolerated.]
[2020-10-04] MEDS: METOPROLOL SUCCINATE (ER) 50 MG TAB.ER.24H PO SCH (15:10)
[2020-10-04] MEDS: CHOLECALCIFEROL 25 MCG (1000 IU) TABLET PO SCH (15:11)
[2020-10-04] MEDS: allopurinoL 100 MG TAB PO SCH (15:11)
[2020-10-04] MEDS: FERROUS SULFATE 325 MG TAB PO SCH (15:11)
[2020-10-04] MEDS: CYANOCOBALAMIN 1,000 MCG/ML 1 ML VIAL IM SCH (15:30)
[2020-10-04 17:37] LABS: Glucose,Whole Blood 127 mg/dL (75-99)
[2020-10-04] MEDS: LACTATED RINGERS 1,000 ML IV SCH (17:51)
--- NOTE | 2020-10-04 19:33 | CONS ---
CONSULTATION CHIEF COMPLAINT: Decreased vision in the right eye for the last 2-3 days. PAST OPHTHALMIC HISTORY: The patient had cataract surgery in the right eye and she has cataract in the left eye. Medical history reviewed. The patient is diabetic. The patient was admitted to the hospital due to gastrointestinal bleeding leading to low hemoglobin and is on blood transfusion. EYE EXAMINATION: Vision: Right eye is 20/40. Left eye is 20/14. Extraocular motility: Full. Pupils: Equal and reactive. Intraocular pressure was 18 mmHg, both eyes. Right eye shows implant in good position with 2+ opacity on the implant. Left eye shows 2+ nuclear sclerosis. Retina: Deferred due to lack of indirect ophthalmoscope in the hospital. ASSESSMENT: 1. Right after cataract. 2. Cataract left eye. 3. Diabetic without retinopathy according to the last full eye exam in the clinic 2 months ago. PLAN: The patient needs a Yag laser capsulotomy to clear the right implant. This is a common condition happening after cataract to develop a protein-like buildup on the implant, which is treated once by a laser. Retinal evaluation is suggested after dilating and clearing the right capsular opacity. This can be achieved in the clinic with available equipment. MMODL / IJN: [id number] /
--- NOTE | 2020-10-04 20:01 | P.PN ---
Subjective Progress Note Date: 10/04/20 Principal diagnosis: Anemia acute on chronic kidney failure right eye blurred vision pleasant 70 years old female was admitted to the hospital for significant drop hemoglobin from 11.8 to 8.2 With associated generalized weakness,dizziness, right eye blurred vision, and elevated creatinine. Evaluated patient this a.m. resting comfortably in bed, patient continues to endorse generalized weakness, right eye blurred vision, and intermittent nausea. Patient denies fever, chills, shortness of breath, chest pain, abdominal pain,or black tarry stools. She currently is being prepped for upper and lower G.I. scope. Hemoglobin and hematocrit have remained stable for the last few days. Renal function has improved throughout hospital stay. Awaiting upper and lower G.I. scope for possible cause of significant drop in hemoglobin. Objective - Vital Signs Vital signs: Vital Signs Temp 97.9 F 10/04/20 14:45 Pulse 71 10/04/20 14:45 Resp 60 H 10/04/20 15:29 BP 147/72 10/04/20 15:29 Pulse Ox 100 10/04/20 15:29 Intake & Output 10/04/20 10/04/20 10/05/20 06:59 18:59 06:59 Intake Total 1800 1400 Balance 1800 1400 Intake: IV 400 Intake, IV Titration 600 700 Amount D5-0.45% NaCl with KCl 600 40Meq/l 1,000 ml @ 50 mls /hr IV .Q20H [facility] Rx#: [id number] Dextrose 5%-0.45% NaCl 1, 600 000 ml @ 50 mls/hr IV . Q20H [facility] Rx#:[id number] Sodium Ferric Gluconat- 100 Sucrose 125 mg In Sodium Chloride 0.9% 100 ml @ 100 mls/hr IVPB DAILY [facility] Rx#:[id number] Oral 1200 300 Other: Voiding Method Toilet Bedside Commode # Voids 4 1 - Constitutional General appearance: Present: cooperative - EENT Eyes: Present: edentulous, PERRLA ENT: Present: normal oropharynx Ears: bilateral: normal - Neck Carotids: bilateral: upstroke normal Thyroid: bilateral: normal size - Respiratory Respiratory: bilateral: CTA (Anterior and posterior lung otero) - Cardiovascular Rhythm: regular Heart sounds: normal: S1, S2 - Peripheral edema ankle Peripheral Edema: bilateral: Trace - Peripheral pulses radial pulse Peripheral Pulses: bilateral: Normal dorsalis pedis Peripheral Pulses: bilateral: Normal - Gastrointestinal General gastrointestinal: Present: normal bowel sounds - Integumentary Integumentary: Present: pale - Musculoskeletal Musculoskeletal: Present: generalized weakness - Psychiatric Psychiatric: Present: A&O x's 3, appropriate affect, intact judgment & insight - Allied health notes Allied health notes reviewed: nursing - Labs CBC & Chem 7: 10/04/20 04:40 10/04/20 04:40 Labs: Abnormal Lab Results - Last 24 Hours (Table) 10/03/20 10/04/20 10/04/20 Range/Units 22:37 04:40 04:40 RBC 2.80 L (3.80-5.40) m/uL Hgb 7.9 L (11.4-16.0) gm/dL Hct 24.9 L (34.0-46.0) % BUN 28 H (7-17) mg/dL Creatinine 1.16 H (0.52-1.04) mg/dL Glucose 121 H (74-99) mg/dL POC Glucose (mg/dL) 124 H (75-99) mg/dL Total Protein 5.9 L (6.3-8.2) g/dL 10/04/20 10/04/20 10/04/20 Range/Units 07:01 11:48 17:35 RBC (3.80-5.40) m/uL Hgb (11.4-16.0) gm/dL Hct (34.0-46.0) % BUN (7-17) mg/dL Creatinine (0.52-1.04) mg/dL Glucose (74-99) mg/dL POC Glucose (mg/dL) 144 H 180 H 127 H (75-99) mg/dL Total Protein (6.3-8.2) g/dL Assessment and Plan Assessment: Anemia, trending H&H, awaiting upper and lower G.I. scope Blurriness of the right eye, consult ophthalmology Chronic kidney disease, consult nephrology Atrial fibrillation, Anticoagulation on hold Status post pacemaker Chronic heart failure Diabetes mellitus Hyperlipidemia History of osteoarthritis history of coronary artery disease status post stent placement Chronic venous ulcers of the lower extremity Full code Plan: Anemia, trending H&H, awaiting upper and lower G.I. blurriness of right eye, awaiting consultation from ophthalmology for recommendations and treatment plan continue to monitor diagnostics and vital signs continue medical management further recommendations to come based on patient's clinical condition Time with Patient: Greater than 30
[2020-10-04 21:00] LABS: Glucose,Whole Blood 173 mg/dL (75-99)
[2020-10-04] MEDS: ATORVASTATIN 40 MG TAB PO SCH (21:17)
[2020-10-04] MEDS: METOPROLOL SUCCINATE (ER) 25 MG TAB.ER.24H PO SCH (21:17)
[2020-10-04] MEDS: SODIUM CHLORIDE 0.45% 1,000 ML IV SCH (21:30)
[2020-10-05] MEDS: ONDANSETRON 4 MG/2 ML VIAL IVP PRN (03:20)
[2020-10-05 03:22] LABS: Glucose,Whole Blood 161 mg/dL (75-99)
[2020-10-05 06:50] LABS: Glucose,Whole Blood 145 mg/dL (75-99)
[2020-10-05] MEDS: INSULIN ASPART (NovoLOG) 100 UNIT/ML VIAL SQ SCH ×4 (08:31→21:05)
[2020-10-05] MEDS: METOPROLOL SUCCINATE (ER) 50 MG TAB.ER.24H PO SCH (08:31)
[2020-10-05] MEDS: CYANOCOBALAMIN 1,000 MCG/ML 1 ML VIAL IM SCH (08:32)
[2020-10-05] MEDS: allopurinoL 100 MG TAB PO SCH (08:32)
[2020-10-05] MEDS: FERROUS SULFATE 325 MG TAB PO SCH (08:32)
[2020-10-05] MEDS: CHOLECALCIFEROL 25 MCG (1000 IU) TABLET PO SCH (08:32)
[2020-10-05] MEDS: PANTOPRAZOLE 40 MG/10 ML VIAL IV SCH (08:32)
[2020-10-05] MEDS: SODIUM FERRIC GLUCONAT-SUCROSE 125 MG in SODIUM CHLORIDE 0.9% 100 ML IVPB SCH (08:35)
--- NOTE | 2020-10-05 08:54 | XR ---
EXAMINATION TYPE: XR chest 2V DATE OF EXAM: 10/05/2020 COMPARISON: Chest x-ray 10/02/2020 HISTORY: Anemia, weakness, history congestive heart failure, abnormal chest x-ray TECHNIQUE: Frontal and lateral views of the chest are obtained. FINDINGS: Generators present in the left pectoral region, there are leads in right atrium and ventri yann. Heart remains enlarged. There is no evident pneumothorax or pleural effusion. Aorta is dense. Ol d right-sided rib fractures appear healed as on prior. There is eventration of the right hemidiaphrag m. No airspace disease. Prominent lung volumes, increased AP diameter chest with flattening the hemid iaphragms may be indicative of underlying COPD. There is thoracic spondylosis. There are coronary art javy calcifications. IMPRESSION: No acute cardiopulmonary process. Stable cardiomegaly. Coronary artery disease.
[2020-10-05 09:13] LABS: Basophils # (A) 0.03 X 10*3/uL (0.00-0.10); Basophils % (A) 0.5 %; Eosinophils # (A) 0.21 X 10*3/uL (0.04-0.35); Eosinophils % (A) 3.4 %; HCT 25.8 % (37.2-46.3); HGB 7.9 g/dL (12.0-15.0); Lymphocytes # (A) 1.59 X 10*3/uL (0.90-5.00); Lymphocytes % (A) 25.9 %; MCH 28.3 pg (27.0-32.0); MCHC 30.6 g/dL (32.0-37.0); MCV 92.5 fL (80.0-97.0); Mean Platelet Volume 9.7 fL (9.5-12.2); Monocytes % (A) 11.4 %; Neutrophils # (A) 3.58 X 10*3/uL (1.80-7.70); Neutrophils % (A) 58.5 %; Platelet Count 306 X 10*3/uL (140-440); RBC 2.79 X 10*6/uL (4.10-5.20); RDW 13.9 % (11.5-14.5); WBC 6.13 X 10*3/uL (4.50-10.00)
[2020-10-05 10:40] LABS: African American GFR (CKD) 44.6 (60.0-200.0); Anion Gap 9.5 mmol/L (4.00-12.00); BUN/Creat Ratio 15.71 Ratio (12.00-20.00); Calcium 9.3 mg/dL (8.7-10.3); Carbon Dioxide 25.5 mmol/L (21.6-31.8); Magnesium 2.1 mg/dL (1.5-2.4); Non-African American GFR(CKD) 38.5 (60.0-200.0); Potassium 4.8 mmol/L (3.5-5.5)
[2020-10-05 11:16] LABS: Glucose,Whole Blood 213 mg/dL (75-99)
--- NOTE | 2020-10-05 11:47 | P.PN ---
Subjective Patient is seen in follow-up for chronic any disease. Creatinine 1.4 today. Tolerating oral intake. No vomiting or diarrhea. Good urine output. Vital signs are stable. General: The patient appeared well nourished and normally developed. HEENT: Head exam is unremarkable. Neck is without jugular venous distension. LUNGS: Breath sounds decreased. HEART: Rate and Rhythm are regular. ABDOMEN: Soft, no distention. EXTREMITITES: No edema. Objective - Vital Signs Vital signs: Vital Signs Temp 98.0 F 10/05/20 07:00 Pulse 63 10/05/20 07:00 Resp 18 10/05/20 07:00 BP 128/64 10/05/20 07:00 Pulse Ox 98 10/05/20 07:00 Intake & Output 10/04/20 10/05/20 10/05/20 18:59 06:59 18:59 Intake Total 1400 Balance 1400 Intake: IV 400 Intake, IV Titration 700 Amount Dextrose 5%-0.45% NaCl 1, 600 000 ml @ 50 mls/hr IV . Q20H [facility] Rx#:[id number] Sodium Ferric Gluconat- 100 Sucrose 125 mg In Sodium Chloride 0.9% 100 ml @ 100 mls/hr IVPB DAILY [facility] Rx#:[id number] Oral 300 Other: Voiding Method Bedside Commode # Voids 1 4 - Labs CBC & Chem 7: 10/05/20 05:50 10/05/20 05:50 Labs: Abnormal Lab Results - Last 24 Hours (Table) 10/04/20 10/04/20 10/04/20 Range/Units 11:48 17:35 20:59 RBC (4.10-5.20) X 10*6/uL Hgb (12.0-15.0) g/dL Hct (37.2-46.3) % MCHC (32.0-37.0) g/dL Absolute Nucleated RBC (0.00-0.00) X 10*3/uL NRBC/100 WBC Diff (0.0-0.0) /100 WBCS Est GFR (CKD-EPI)AfAm (60.0-200.0) Est GFR (CKD-EPI)NonAf (60.0-200.0) Glucose (70-110) mg/dL POC Glucose (mg/dL) 180 H 127 H 173 H (75-99) mg/dL 10/05/20 10/05/20 10/05/20 Range/Units 03:20 05:50 05:50 RBC 2.79 L (4.10-5.20) X 10*6/uL Hgb 7.9 L (12.0-15.0) g/dL Hct 25.8 L (37.2-46.3) % MCHC 30.6 L (32.0-37.0) g/dL Absolute Nucleated RBC 0.02 H (0.00-0.00) X 10*3/uL NRBC/100 WBC Diff 0.3 H (0.0-0.0) /100 WBCS Est GFR (CKD-EPI)AfAm 44.6 L (60.0-200.0) Est GFR (CKD-EPI)NonAf 38.5 L (60.0-200.0) Glucose 151 H (70-110) mg/dL POC Glucose (mg/dL) 161 H (75-99) mg/dL 10/05/20 10/05/20 Range/Units 06:48 11:15 RBC (4.10-5.20) X 10*6/uL Hgb (12.0-15.0) g/dL Hct (37.2-46.3) % MCHC (32.0-37.0) g/dL Absolute Nucleated RBC (0.00-0.00) X 10*3/uL NRBC/100 WBC Diff (0.0-0.0) /100 WBCS Est GFR (CKD-EPI)AfAm (60.0-200.0) Est GFR (CKD-EPI)NonAf (60.0-200.0) Glucose (70-110) mg/dL POC Glucose (mg/dL) 145 H 213 H (75-99) mg/dL Assessment and Plan Plan: Assessment: 1. Chronic kidney disease stage IIIB with baseline creatinine in the range of 1.2-1.5. Etiology is nephrosclerosis. UA benign. GFR at baseline. 2. Anemia of chronic kidney disease. Iron deficiency noted. Maintained on Aranesp. Status post EGD and colonoscopy which revealed gastritis. 3. Diabetes mellitus. 4. Chronic kidney disease mineral bone disease maintained on calcitriol. 5. Chronic systolic CHF. Plan: Maintain IV iron. Hep-Lock IV fluids. Encourage oral intake. Avoid nephrotoxins. Diuretics held.
[2020-10-05] MEDS ORDERED: bisacodyL 5 MG TABLET.DR PO STA (14:04)
[2020-10-05] MEDS ORDERED: PEG 3350-NA SULF,BICARB,CL/KCL 4,000 ML BOTTLE PO ONE (17:00)
[2020-10-05 17:24] LABS: Glucose,Whole Blood 154 mg/dL (75-99)
--- NOTE | 2020-10-05 19:37 | P.PN ---
Subjective Principal diagnosis: Anemia acute on chronic kidney failure right eye blurred vision pleasant 70 years old female was admitted to the hospital for significant drop hemoglobin from 11.8 to 8.2 With associated generalized weakness,dizziness, right eye blurred vision, and elevated creatinine. October 04, 2020 Evaluated patient this a.m. resting comfortably in bed, patient continues to endorse generalized weakness, right eye blurred vision, and intermittent nausea. Patient denies fever, chills, shortness of breath, chest pain, abdominal pain,or black tarry stools. She currently is being prepped for upper and lower G.I. scope. Hemoglobin and hematocrit have remained stable for the last few days. Renal function has improved throughout hospital stay. Awaiting upper and lower G.I. scope for possible cause of significant drop in hemoglobin. October 05, 2020 Evaluated patient this a.m., resting comfortably in bed. Patient underwent upper and lower G.I. yesterday with no acute signs of blood loss. Upper G.I. showed gastritis. Patient hemoglobin continues to remain at 7.9. Kidney function continues to remain stable at baseline. Patient receiving IV iron infusions for acute on chronic anemia. Consultation with cardiology for recommendations regarding diuretics and resuming and entresto. Ophthalmology saw patient last night, recommending outpatient procedure for protein deposits.Order chest x-ray and BMP for status of possible fluid overload. Objective - Vital Signs Vital signs: Vital Signs Temp 98.5 F 10/05/20 14:44 Pulse 60 10/05/20 14:44 Resp 18 10/05/20 14:44 BP 121/66 10/05/20 14:44 Pulse Ox 100 10/05/20 14:44 Intake & Output 10/05/20 10/05/20 10/06/20 06:59 18:59 06:59 Intake Total 400 Balance 400 Intake: Intake, IV Titration 400 Amount Sodium Chloride 0.45% 1, 300 000 ml @ 50 mls/hr IV . Q20H [facility] Rx#:[id number] Sodium Ferric Gluconat- 100 Sucrose 125 mg In Sodium Chloride 0.9% 100 ml @ 100 mls/hr IVPB DAILY [facility] Rx#:[id number] Other: # Voids 4 - Constitutional General appearance: Present: cooperative - EENT Eyes: Present: EOMI, PERRLA, normal appearance ENT: Present: normal oropharynx Ears: bilateral: normal - Neck Carotids: bilateral: upstroke normal Thyroid: bilateral: normal size - Respiratory Respiratory: bilateral: CTA (Anterior lung otero), rales (Fine rales to bi lateral bases) - Cardiovascular Heart rate: 63 Heart sounds: normal: S1, S2 - Peripheral pulses dorsalis pedis Peripheral Pulses: bilateral: Normal radial pulse Peripheral Pulses: bilateral: Normal - Gastrointestinal General gastrointestinal: Present: normal bowel sounds - Integumentary Integumentary: Present: pale - Neurologic Neurologic: Present: CNII-XII intact - Musculoskeletal Musculoskeletal: Present: gait normal - Psychiatric Psychiatric: Present: A&O x's 3, appropriate affect, intact judgment & insight - Allied health notes Allied health notes reviewed: nursing - Labs CBC & Chem 7: 10/05/20 05:50 10/05/20 05:50 Labs: Abnormal Lab Results - Last 24 Hours (Table) 10/04/20 10/05/20 10/05/20 Range/Units 20:59 03:20 05:50 RBC (4.10-5.20) X 10*6/uL Hgb (12.0-15.0) g/dL Hct (37.2-46.3) % MCHC (32.0-37.0) g/dL Absolute Nucleated RBC (0.00-0.00) X 10*3/uL NRBC/100 WBC Diff (0.0-0.0) /100 WBCS Est GFR (CKD-EPI)AfAm 44.6 L (60.0-200.0) Est GFR (CKD-EPI)NonAf 38.5 L (60.0-200.0) Glucose 151 H (70-110) mg/dL POC Glucose (mg/dL) 173 H 161 H (75-99) mg/dL 10/05/20 10/05/20 10/05/20 Range/Units 05:50 06:48 11:15 RBC 2.79 L (4.10-5.20) X 10*6/uL Hgb 7.9 L (12.0-15.0) g/dL Hct 25.8 L (37.2-46.3) % MCHC 30.6 L (32.0-37.0) g/dL Absolute Nucleated RBC 0.02 H (0.00-0.00) X 10*3/uL NRBC/100 WBC Diff 0.3 H (0.0-0.0) /100 WBCS Est GFR (CKD-EPI)AfAm (60.0-200.0) Est GFR (CKD-EPI)NonAf (60.0-200.0) Glucose (70-110) mg/dL POC Glucose (mg/dL) 145 H 213 H (75-99) mg/dL 10/05/20 Range/Units 17:23 RBC (4.10-5.20) X 10*6/uL Hgb (12.0-15.0) g/dL Hct (37.2-46.3) % MCHC (32.0-37.0) g/dL Absolute Nucleated RBC (0.00-0.00) X 10*3/uL NRBC/100 WBC Diff (0.0-0.0) /100 WBCS Est GFR (CKD-EPI)AfAm (60.0-200.0) Est GFR (CKD-EPI)NonAf (60.0-200.0) Glucose (70-110) mg/dL POC Glucose (mg/dL) 154 H (75-99) mg/dL - Imaging and Cardiology Chest x-ray: pending Assessment and Plan Assessment: Anemia, trending H&H Blurriness of the right eye, consult ophthalmology, Follow-up outpatient Chronic kidney disease, consult nephrology Atrial fibrillation, Anticoagulation on hold Status post pacemaker Chronic heart failure Diabetes mellitus Hyperlipidemia History of osteoarthritis history of coronary artery disease status post stent placement Chronic venous ulcers of the lower extremity Full code Plan: Anemia, trending H&H,Iron infusions blurriness of right eye, awaiting consultation from ophthalmology for recomm endations and treatment plan continue to monitor diagnostics and vital signs continue medical management further recommendations to come based on patient's clinical condition Hopeful discharge in 24 hours Time with Patient: Greater than 30
[2020-10-05 20:24] LABS: Glucose,Whole Blood 191 mg/dL (75-99)
[2020-10-05] MEDS: METOPROLOL SUCCINATE (ER) 25 MG TAB.ER.24H PO SCH (21:05)
[2020-10-05] MEDS: ATORVASTATIN 40 MG TAB PO SCH (21:05)
[2020-10-06 06:05] LABS: Basophils % (A) 0 %; Eosinophils # (A) 0.3 k/uL (0-0.7); Eosinophils % (A) 5 %; HCT 25.7 % (34.0-46.0); HGB 8.2 gm/dL (11.4-16.0); Hypochromasia Moderate; Lymphocytes # (A) 1.3 k/uL (1.0-4.8); Lymphocytes % (A) 21 %; MCH 28.7 pg (25.0-35.0); MCV 89.9 fL (80.0-100.0); Monocytes # (A) 0.5 k/uL (0-1.0); Monocytes % (A) 9 %; Neutrophils % (A) 63 %; Platelet Count 264 k/uL (150-450); RBC 2.86 m/uL (3.80-5.40); RDW 15.1 % (11.5-15.5); WBC 6.3 k/uL (3.8-10.6)
[2020-10-06 06:18] LABS: ALT 15 U/L (4-34); AST 26 U/L (14-36); African American GFR (CKD) 45 (>60 ml/min/1.73 sqM); Albumin 3.5 g/dL (3.5-5.0); Albumin/Globulin Ratio 1.5; Alkaline Phosphatase 74 U/L (38-126); Anion Gap 6 mmol/L; Blood Urea Nitrogen 24 mg/dL (7-17); Calcium 8.9 mg/dL (8.4-10.2); Carbon Dioxide 28 mmol/L (22-30); Chloride 104 mmol/L (98-107); Globulin 2.3 g/dL; Glucose 147 mg/dL (74-99); Magnesium 2.1 mg/dL (1.6-2.3); Non-African American GFR(CKD) 39 (>60 ml/min/1.73 sqM); Sodium 138 mmol/L (137-145); Total Bilirubin 0.2 mg/dL (0.2-1.3); Total Protein 5.8 g/dL (6.3-8.2)
[2020-10-06 06:56] LABS: Glucose,Whole Blood 180 mg/dL (75-99)
[2020-10-06 07:25] VITALS: BP 116/70; PULSE 59; RESP 18; TEMP 97.6
[2020-10-06] MEDS: FERROUS SULFATE 325 MG TAB PO SCH (08:20)
[2020-10-06] MEDS: METOPROLOL SUCCINATE (ER) 50 MG TAB.ER.24H PO SCH (08:20)
[2020-10-06] MEDS: CHOLECALCIFEROL 25 MCG (1000 IU) TABLET PO SCH (08:20)
[2020-10-06] MEDS: allopurinoL 100 MG TAB PO SCH (08:20)
[2020-10-06] MEDS: CYANOCOBALAMIN 1,000 MCG/ML 1 ML VIAL IM SCH (08:20)
[2020-10-06] MEDS: PANTOPRAZOLE 40 MG/10 ML VIAL IV SCH (08:21)
[2020-10-06] MEDS: INSULIN ASPART (NovoLOG) 100 UNIT/ML VIAL SQ SCH ×2 (08:21→14:00)
[2020-10-06] MEDS: SODIUM FERRIC GLUCONAT-SUCROSE 125 MG in SODIUM CHLORIDE 0.9% 100 ML IVPB SCH (08:23)
--- NOTE | 2020-10-06 10:54 | P.PN ---
Subjective Patient is seen in follow-up for chronic any disease. Renal function stable. Creatinine 1.38 today. Tolerating oral intake. No vomiting or diarrhea. Good urine output. Vital signs are stable. General: The patient appeared well nourished and normally developed. HEENT: Head exam is unremarkable. Neck is without jugular venous distension. LUNGS: Breath sounds decreased. HEART: Rate and Rhythm are regular. ABDOMEN: Soft, no distention. EXTREMITITES: No edema. Objective - Vital Signs Vital signs: Vital Signs Temp 97.6 F 10/06/20 07:00 Pulse 59 L 10/06/20 07:00 Resp 18 10/06/20 07:00 BP 116/70 10/06/20 07:00 Pulse Ox 96 10/06/20 07:00 Intake & Output 10/05/20 10/06/20 10/06/20 18:59 06:59 18:59 Intake Total 400 Balance 400 Intake: Intake, IV Titration 400 Amount Sodium Chloride 0.45% 1, 300 000 ml @ 50 mls/hr IV . Q20H [facility] Rx#:[id number] Sodium Ferric Gluconat- 100 Sucrose 125 mg In Sodium Chloride 0.9% 100 ml @ 100 mls/hr IVPB DAILY [facility] Rx#:[id number] Other: Voiding Method Bedside Commode # Voids 2 - Labs CBC & Chem 7: 10/06/20 05:33 10/06/20 05:33 Labs: Abnormal Lab Results - Last 24 Hours (Table) 10/05/20 10/05/20 10/05/20 Range/Units 11:15 17:23 20:22 RBC (3.80-5.40) m/uL Hgb (11.4-16.0) gm/dL Hct (34.0-46.0) % BUN (7-17) mg/dL Creatinine (0.52-1.04) mg/dL Glucose (74-99) mg/dL POC Glucose (mg/dL) 213 H 154 H 191 H (75-99) mg/dL Total Protein (6.3-8.2) g/dL 10/06/20 10/06/20 10/06/20 Range/Units 05:33 05:33 06:54 RBC 2.86 L (3.80-5.40) m/uL Hgb 8.2 L (11.4-16.0) gm/dL Hct 25.7 L (34.0-46.0) % BUN 24 H (7-17) mg/dL Creatinine 1.38 H (0.52-1.04) mg/dL Glucose 147 H (74-99) mg/dL POC Glucose (mg/dL) 180 H (75-99) mg/dL Total Protein 5.8 L (6.3-8.2) g/dL Assessment and Plan Plan: Assessment: 1. Chronic kidney disease stage IIIB with baseline creatinine in the range of 1.2-1.5. Etiology is nephrosclerosis. UA benign. GFR at baseline. 2. Anemia of chronic kidney disease. Iron deficiency noted. Maintained on Aranesp. Status post EGD and colonoscopy which revealed gastritis. 3. Diabetes mellitus. 4. Chronic kidney disease mineral bone disease maintained on calcitriol. 5. Chronic systolic CHF. Plan: Maintain IV iron. Remains off IV fluids. Encourage oral intake. Avoid nephrotoxins. Continue to hold diuretics for now.
[2020-10-06 11:37] LABS: Glucose,Whole Blood 163 mg/dL (75-99)
--- NOTE | 2020-10-06 14:01 | P.CRDCN ---
History of Present Illness History of present illness: HISTORY OF PRESENTING ILLNESS This is a pleasant 69-year-old female past medical history significant for coronary artery disease status post PCI to the PDA branch 2013 with mild to moderate disease of the RCA and LAD noted on catheterization from 2018, cardiomyopathy 2019 with improvement in LV function, permanent pacemaker implantations, nonsustained ventricular tachycardia, chronic persistent atrial fibrillation on long-term anticoagulation, hypertension, diabetes mellitus, dyslipidemia and pulmonary hypertension. She follows in the office with Dr. Ralph. We have been asked to see in consultation for elevated BNP. Patient presents to the emergency department complaints of weakness, dizziness and abnormal labs with a drop in her hemoglobin. GI was consulted patient underwent upper endoscopy and colonoscopy on 10/04/2020, which revealed diffuse gastritis no evidence of esophagitis or PUD, and no evidence of colitis or colorectal neoplasia. Biopsies were taken. Chest xray No active cardiopulmonary process. Stable cardiomegaly. Laboratory reviewed, WBC 6.1, hemoglobin 7.9, platelets 306, sodium 140, potassium 4.8, serum creatinine 1.4, BNP 3050 (lower than previous BNP 5,700). Current home cardiac medications include contrast to 24 mg to 26 mg, metoprolol succinate 50 mg in the morning 25 mg at night, Lasix 40 mg 3 times a day, atorvastatin 40 mg daily, aspirin 81 mg daily.Most recent echocardiogram obtained in the office April 2020 revealed preserved LV systolic function ejection fraction 50%, mildly dilated right ventricle is dilated left atrium, moderate mitral regurgitation, moderate to severe tricuspid regurgitation and moderate pulmonary hypertension with an RVSP of 47 mmHg. She had an episode of self terminating polymorphic VT in May, her beta blockers were increased and she has been stable since that time. Patient seen and examined at bedside, sitting up in bedside chair, no acute distress. alert and oriented x 3. Patient was admitted in June 2020 with worsening shortness of breath over 2 days.. Her chest x-ray showed COPD and mild vascular congestion and Her Pro BNP was elevated at 5700. She was diuresed with IV Lasix. She underwent a Lexiscan stress test which revealed no evidence of stress-induced ischemia. Patient was stabilized and discharged home. REVIEW OF SYSTEMS At the time of my exam: CONSTITUTIONAL: Denies fever or chills. CARDIOVASCULAR: Denies orthopnea and PND. Denies chest pain or palpitations. RESPIRATORY: Denies cough. GASTROINTESTINAL: Denies abdominal pain, diarrhea, constipation, nausea or vomiting. MUSCULOSKELETAL: Denies myalgias. NEUROLOGIC: Denies numbness, tingling, headacbe or weakness. ENDOCRINE: Denies fatigue, weight change, polydipsia or polyurina. GENITOURINARY: Denies burning, hematuria or urgency with micturation. HEMATOLOGIC: Denies history of anemia or bleeding. PHYSICAL EXAMINATION Blood pressure 156/67 heart rate 69 afebrile and maintaining oxygen saturation on room air. CONSTITUTIONAL: No apparent distress. HEENT: Head is normocephalic. Pupils are equal, round. Sclerae anicteric. Mucous membranes of the mouth are moist. No JVD. No carotid bruit. CHEST EXAMINATION: Faint bibasilar rales, no wheezes or rhonch. No chest wall tenderness is noted on palpation or with deep breathing. HEART EXAMINATION: Irregular rate and rhythm. S1, S2 heard. Systolic ejection murmur at the left sternal border, no gallops or rub. ABDOMEN: Soft, nontender. Positive bowel sounds. EXTREMITIES: 2+ peripheral pulses, No lower extremity edema and venous stasis changes and no calf tenderness. NEUROLOGIC EXAMINATION: Patient is awake, alert and oriented x3. ASSESSMENT Anemia History of idiopathic cardiomyopathy Pulmonary hypertension Chronic kidney disease Coronary artery disease status post PCI of the PDA branch Hypertension Dyslipidemia Chronic persistent atrial fibrillation on long-term anticoagulation s/p failed cardioversion Type 2 Diabetes mellitus Permanent pacemaker implantation PLAN From cardiology perspective, patient is not in failure. Euvolemic on exam No further recommendations from cardiology perspective Continue home cardiac medications Follow up with Dr. Ralph Nurse Practitioner note has been reviewed, I agree with a documented findings and plan of care. Patient was seen and examined. Past Medical History Past Medical History: Atrial Fibrillation, Heart Failure, Diabetes Mellitus, Eye Disorder, Hyperlipidemia, Osteoarthritis (OA), Pneumonia, Skin Disorder, Vascular Disorder Additional Past Medical History / Comment(s): Chronic Venous Stasis BLE w/ chronic ulceration of the left lower extremity, current small area still left leg, CAD W/ coronary stenting Rt PDA 2013. History of kidney stones. Pacemaker (Brand:ST DAPHNE). HAS CATARACT LT. WOUNDS LLE, USING SILVADENE CREAM. EDEMA BLE. seeing Dr Calderon r/t kidney function. Small wound LLE. History of Any Multi-Drug Resistant Organisms: None Reported Past Surgical History: Cardiac Ablation, Heart Catheterization, Heart Catheterization With Stent, Hysterectomy, Pacemaker, Tubal Ligation Additional Past Surgical History / Comment(s): states has had mult sx on veins left leg, [place] with cardioversion, varicose vein stripping, one cardiac stent, rt cataract, kidney stone sx, LLE surgery with stent and skin grafting. Past Anesthesia/Blood Transfusion Reactions: No Reported Reaction Additional Past Anesthesia/Blood Transfusion Reaction / Comment(s): PONV 40 PLUS YEARS AGO, AFTER REMOVAL KIDNEY STONE. Date of Last Stent Placement:: November 2013 Type of Cardiac Device: Permanent Pacemaker Device Placement Date:: 10/30/2017 Past Psychological History: No Psychological Hx Reported Additional Psychological History / Comment(s): Pt's spouse had covid end of s ummer 2019 and d/t covid 05/22/20. Pt now lives alone. She drives. Smoking Status: Never smoker Past Alcohol Use History: None Reported Additional Past Alcohol Use History / Comment(s): Patient is a lifelong nons moker. She denies any medical marijuana, marijuana, street drug or alcohol use. She lives at home with her . She has had no recent travel. There are no pets in the home. Past Drug Use History: None Reported - Past Family History Father History Unknown: Yes Family Medical History: No Reported History Additional Family Medical History / Comment(s): Aneurysm, apssed in 2000. Mother Family Medical History: Cancer Additional Family Medical History / Comment(s): Bladder and has since passed. Medications and Allergies Home Medications Medication Instructions Recorded Confirmed Type Atorvastatin [Lipitor] 40 mg PO HS 10/22/17 10/02/20 History metFORMIN HCL [Glucophage] 850 mg PO TID 10/30/17 10/02/20 History Acetaminophen Tab [Tylenol] 650 mg PO Q6HR PRN tab 11/01/17 10/02/20 Rx Insulin Glargine,Hum.rec.anlog 37 units SQ HS 12/16/17 10/02/20 History [Toujeo Solostar] Liraglutide [Victoza 2-Ishan] 1.8 mg SQ DAILY 12/16/17 10/02/20 History Furosemide [Lasix] 40 mg PO TID 06/04/18 10/02/20 History Ferrous Sulfate [Iron (65 MG 325 mg PO DAILY 01/19/19 10/02/20 History Elemental)] Allopurinol [Zyloprim] 100 mg PO DAILY 03/25/19 10/02/20 History calcitrioL [Calcitriol] 0.5 mcg PO WE 03/25/19 10/02/20 History Sacubitril/Valsartan [Entresto 24 1 tab PO BID 04/13/19 10/02/20 History mg-26 mg Tablet] Metoprolol Succinate (ER) [Toprol 50 mg PO DAILY 06/22/20 10/02/20 History XL] Metoprolol Succinate [Toprol XL] 25 mg PO HS 06/22/20 10/02/20 History Cholecalciferol [Vitamin D3 (25 25 mcg PO DAILY 10/02/20 10/02/20 History Mcg = 1000 Iu)] Allergies Allergy/AdvReac Type Severity Reaction Status Date / Time Iodinated Contrast Media Allergy Severe THROAT Verified 10/02/20 12:14 [Iodinated Contrast Media - SWELLING Oral and] iodine Allergy Severe THROAT Verified 10/02/20 12:14 SWELLING, RASH shellfish derived Allergy Severe THROAT Verified 10/02/20 12:14 SWELLING, RASH cefazolin sodium Allergy Dyspnea Verified 10/02/20 12:14 [From Kefzol] Latex, Natural Rubber Allergy Rash/Hives Verified 10/02/20 12:14 levofloxacin [From Levaquin] Allergy Rash/Hives Verified 10/02/20 12:14 piperacillin sodium Allergy THROAT Verified 10/02/20 12:14 [From Zosyn] SWELL, RASH tazobactam sodium Allergy THROAT Verified 10/02/20 12:14 [From Zosyn] SWELL, RASH verapamil AdvReac Severe Hallucinati Verified 10/02/20 12:14 ons seafood Allergy Severe throat Uncoded 06/22/20 10:33 swelling Physical Exam Vitals: Vital Signs Temp Pulse Resp BP Pulse Ox 10/05/20 07:00 98.0 F 63 18 128/64 98 10/05/20 02:00 97.7 F 60 16 124/53 98 10/04/20 20:00 97.7 F 59 L 17 122/76 97 10/04/20 15:29 60 H 147/72 100 10/04/20 14:45 97.9 F 71 16 124/69 98 Intake and Output 10/04/20 10/05/20 10/05/20 22:59 06:59 14:59 Intake Total 300 Balance 300 Intake: Oral 300 Other: # Voids 2 4 Results 10/06/20 05:33 10/06/20 05:33 CBC 10/05/20 Range/Units 05:50 WBC 6.13 (4.50-10.00) X 10*3/uL RBC 2.79 L (4.10-5.20) X 10*6/uL Hgb 7.9 L (12.0-15.0) g/dL Hct 25.8 L (37.2-46.3) % Plt Count 306 (140-440) X 10*3/uL Comprehensive Metabolic Panel 10/05/20 Range/Units 05:50 Sodium 140 (135-145) mmol/L Potassium 4.8 (3.5-5.5) mmol/L Chloride 105 (96-109) mmol/L Carbon Dioxide 25.5 (21.6-31.8) mmol/L BUN 22.0 (9.0-27.0) mg/dL Creatinine 1.4 (0.6-1.5) mg/dL Glucose 151 H (70-110) mg/dL Calcium 9.3 (8.7-10.3) mg/dL Current Medications Generic Name Dose Route Start Last Admin Trade Name Freq PRN Reason Stop Dose Admin Acetaminophen 650 mg 10/02/20 14:43 Acetaminophen Tab 325 Mg Tab PO Q6HR PRN Mild Pain or Fever > 100.5 Acetaminophen 650 mg 10/02/20 20:32 Acetaminophen Tab 325 Mg Tab PO Q6HR PRN Mild Pain Allopurinol 100 mg 10/02/20 20:45 10/05/20 08:32 Allopurinol 100 Mg Tab PO 100 mg DAILY LAKEISHA Administration Atorvastatin Calcium 40 mg 10/02/20 21:00 10/04/20 21:17 Atorvastatin 40 Mg Tab PO 40 mg HS LAKEISHA Administration Calcitriol 0.5 mcg 10/05/20 09:00 10/05/20 08:31 Calcitriol 0.25 Mcg Cap PO 0.5 mcg WE LAKEISHA Administration Cholecalciferol 25 mcg 10/03/20 09:00 10/05/20 08:32 Cholecalciferol 25 Mcg (1000 Iu) Tablet PO 25 mcg DAILY LAKEISHA Administration Cyanocobalamin 1,000 mcg 10/03/20 13:30 10/05/20 08:32 Cyanocobalamin 1,000 Mcg/Ml 1 Ml Vial IM 1,000 mcg DAILY LAKEISHA Administration Darbepoetin Gustavo 40 mcg 10/03/20 12:00 10/03/20 12:24 Darbepoetin Gustavo 40 Mcg/0.4 Ml Syringe SQ 40 mcg Q7D LAKEISHA Administration Ferrous Sulfate 325 mg 10/03/20 09:00 10/05/20 08:32 Ferrous Sulfate 325 Mg Tab PO 325 mg DAILY LAKEISHA Administration Ferric Sodium Gluconate 125 mg 110 mls @ 100 mls/hr 10/04/20 09:00 10/05/20 08:35 / Sodium Chloride IVPB 10/06/20 10:05 100 mls/hr DAILY LAKEISHA Administration Insulin Aspart 0 unit 10/02/20 21:00 10/05/20 08:31 Insulin Aspart (Novolog) 100 Unit/Ml Vial SQ 1 unit ACHS LAKEISHA Administration Protocol Lidocaine HCl 0.1 ml 10/03/20 17:55 Lidocaine 1% (10mg/Ml) For Iv Start INTRADERMA PER PROTOCOL PRN IV Start Metoprolol Succinate 25 mg 10/02/20 21:00 10/04/20 21:17 Metoprolol Succinate (Er) 25 Mg Tab.Er.24h PO 25 mg HS LAKEISHA Administration Metoprolol Succinate 50 mg 10/03/20 09:00 10/05/20 08:31 Metoprolol Succinate (Er) 50 Mg Tab.Er.24h PO 50 mg DAILY LAKEISHA Administration Naloxone HCl 0.2 mg 10/02/20 14:43 Naloxone 0.4 Mg/Ml 1 Ml Vial IV Q2M PRN Opioid Reversal Ondansetron HCl 4 mg 10/02/20 14:43 10/05/20 03:20 Ondansetron 4 Mg/2 Ml Vial IVP 4 mg Q8HR PRN Administration Nausea And Vomiting Pantoprazole Sodium 40 mg 10/03/20 09:00 10/05/20 08:32 Pantoprazole 40 Mg/10 Ml Vial IV 40 mg DAILY LAKEISHA Administration Intake and Output 10/04/20 10/05/20 10/05/20 22:59 06:59 14:59 Intake Total 300 Balance 300 Intake: Oral 300 Other: # Voids 2 4 10/05/20 05:50 10/05/20 05:50
[2020-10-07] MEDS ORDERED: PANTOPRAZOLE 40 MG TABLET PO SCH (07:30)
--- NOTE | 2020-10-13 18:16 | P.DS ---
Providers Date of admission: 10/03/20 14:26 Expected date of discharge: 10/06/20 Attending physician: Edgardo Juarez Consults: 10/02/20 14:43 Consult Physician Stat Consulting Provider: Mica Calderon Consult Reason/Comments: elevated BUN/Cr. GI bleed Do you want consulting provider notified?: Yes 10/02/20 14:49 Consult Physician Stat Consulting Provider: Malena Martinez Consult Reason/Comments: Blurred vision, R eye Do you want consulting provider notified?: Already Contacted 10/04/20 17:29 Consult Physician Urgent Consulting Provider: Malena Martinez Consult Reason/Comments: continued eye vision issues Do you want consulting provider notified?: Yes 10/05/20 09:35 Consult Physician Urgent Consulting Provider: [facility] Consult Reason/Comments: elevated bnp Do you want consulting provider notified?: Yes Primary care physician: Edgardo Juarez Hospital Course: pleasant 70 years old female was admitted to the hospital for significant drop hemoglobin from 11.8 to 8.2 with associated generalized weakness,dizziness, right eye blurred vision, and elevated creatinine. Extensive diagnostic workup was done in the emergency department revealing anemia and a positive Hemoccult, gastroenterology was consulted for anemia for GI bleed, ophthalmology was consulted for right eye blurriness, nephrology was consulted due to acute kidney injury avoided nephrotoxic drugs during hospital stay, hematology/oncology was consulted for anemia iron was infused for mixed anemia possibly iron deficiency anemia to increase in hemoglobin. Will hold anticoagulation therapy until significant hemoglobin and hematocrit stabilized. Will hold due to mild hyperkalemia. Close follow-up with primary care within 24 hours, ophthalmology within 1-2 days, nephrology within 1-2 weeks, and cardiology within 2-4 weeks. Assessment: Anemia of chronic disease Blurriness of the right eye, consult ophthalmology, Follow-up outpatient Chronic kidney disease, follow-up with nephrology Atrial fibrillation, Anticoagulation on hold, due to significant drop in hemoglobin Hyperkalemia hold entresto Chronic heart failure Diabetes mellitus Hyperlipidemia History of osteoarthritis history of coronary artery disease status post stent placement Chronic venous ulcers of the lower extremity Full code Health Concerns: Multiple comorbidities Pertinent Studies: CT of the head without contrast no acute abnormalities noted Serial chest x-rays no acute pulmonary processes noted Procedures: Upper and lower GI scoperevealing gastritis per gastroenterology Patient Condition at Discharge: Fair Plan - Discharge Summary Discharge Rx Participant: No New Discharge Prescriptions: Continue Atorvastatin [Lipitor] 40 mg PO HS metFORMIN HCL [Glucophage] 850 mg PO TID Acetaminophen Tab [Tylenol] 650 mg PO Q6HR PRN tab PRN Reason: Mild Pain Insulin Glargine,Hum.rec.anlog [[facility]ostar] 37 units SQ HS Liraglutide [Victoza 2-Ishan] 1.8 mg SQ DAILY Furosemide [Lasix] 40 mg PO TID Ferrous Sulfate [Iron (65 MG Elemental)] 325 mg PO DAILY Allopurinol [Zyloprim] 100 mg PO DAILY calcitrioL [Calcitriol] 0.5 mcg PO WE Sacubitril/Valsartan [Entresto 24 mg-26 mg Tablet] 1 tab PO BID Metoprolol Succinate (ER) [Toprol XL] 50 mg PO DAILY Metoprolol Succinate [Toprol XL] 25 mg PO HS Cholecalciferol [Vitamin D3 (25 Mcg = 1000 Iu)] 25 mcg PO DAILY Discontinued Aspirin EC [Ecotrin Low Dose] 81 mg PO DAILY Edoxaban Tosylate [Savaysa] 60 mg PO DAILY Discharge Medication List Atorvastatin [Lipitor] 40 mg PO HS 10/22/17 [History] metFORMIN HCL [Glucophage] 850 mg PO TID 10/30/17 [History] Acetaminophen Tab [Tylenol] 650 mg PO Q6HR PRN tab 11/01/17 [Rx] Insulin Glargine[facility]Hum[facility]rec.anlog [facility]] 37 units SQ HS 12/16/17 [History] Liraglutide [Victoza 2-Ishan] 1.8 mg SQ DAILY 12/16/17 [History] Furosemide [Lasix] 40 mg PO TID 06/04/18 [History] Ferrous Sulfate [Iron (65 MG Elemental)] 325 mg PO DAILY 01/19/19 [History] Allopurinol [Zyloprim] 100 mg PO DAILY 03/25/19 [History] calcitrioL [Calcitriol] 0.5 mcg PO WE 03/25/19 [History] Sacubitril/Valsartan [Entresto 24 mg-26 mg Tablet] 1 tab PO BID 04/13/19 [History] Metoprolol Succinate (ER) [Toprol XL] 50 mg PO DAILY 06/22/20 [History] Metoprolol Succinate [Toprol XL] 25 mg PO HS 06/22/20 [History] Cholecalciferol [Vitamin D3 (25 Mcg = 1000 Iu)] 25 mcg PO DAILY 10/02/20 [History] Follow up Appointment(s)/Referral(s): Edgardo Juarez MD [Primary Care Provider] - 10/17/20 10:30 am Malena Martinez MD [STAFF PHYSICIAN] - 1 Week (SaturdayOctober 07 at 9am) [facility] [NON-STAFF] - As Needed Patient Instructions/Handouts: Anemia (DC) Discharge Disposition: HOME SELF-CARE
== END 2020-10-06 14:15 | disposition home or self-care (01) | DRG 812 ==
LOC: EC 10:12 → 6NMEDSUR 16:30 → OBSVTOIN 10-03 14:26
PROVIDERS: ADMIT Family Medicine; ATTEND Family Medicine
PROC: 0DB68ZX Excision of Stomach, Via Natural or Artificial Opening Endoscopic, Diagnostic (ICD-10-PCS; principal; 2020-10-04 12:55)
PROC: 0DB98ZX Excision of Duodenum, Via Natural or Artificial Opening Endoscopic, Diagnostic (ICD-10-PCS; principal; 2020-10-04 12:55)
PROC: 0DJD8ZZ Inspection of Lower Intestinal Tract, Via Natural or Artificial Opening Endoscopic (ICD-10-PCS; principal; 2020-10-04 12:55)
PROC: 0DB78ZX Excision of Stomach, Pylorus, Via Natural or Artificial Opening Endoscopic, Diagnostic (ICD-10-PCS; principal; 2020-10-04 12:55)
DX: D50.9 Iron deficiency anemia, unspecified (principal); I13.0 Hypertensive heart and chronic kidney disease with heart failure and stage 1 through stage 4 chronic kidney disease, or unspecified chronic kidney disease; I42.8 Other cardiomyopathies; I48.19 Other persistent atrial fibrillation; I50.22 Chronic systolic (congestive) heart failure; I87.333 Chronic venous hypertension (idiopathic) with ulcer and inflammation of bilateral lower extremity; L97.912 Non-pressure chronic ulcer of unspecified part of right lower leg with fat layer exposed; L97.922 Non-pressure chronic ulcer of unspecified part of left lower leg with fat layer exposed; N17.9 Acute kidney failure, unspecified; E87.2 Acidosis; D63.1 Anemia in chronic kidney disease; E11.22 Type 2 diabetes mellitus with diabetic chronic kidney disease; E11.622 Type 2 diabetes mellitus with other skin ulcer; E78.5 Hyperlipidemia, unspecified; E87.5 Hyperkalemia; E11.36 Type 2 diabetes mellitus with diabetic cataract; H26.40 Unspecified secondary cataract; Z79.4 Long term (current) use of insulin; I08.1 Rheumatic disorders of both mitral and tricuspid valves; E83.9 Disorder of mineral metabolism, unspecified; I25.10 Atherosclerotic heart disease of native coronary artery without angina pectoris; Z20.822 Contact with and (suspected) exposure to COVID-19; I27.20 Pulmonary hypertension, unspecified; I87.2 Venous insufficiency (chronic) (peripheral); I87.8 Other specified disorders of veins; J44.9 Chronic obstructive pulmonary disease, unspecified; K29.70 Gastritis, unspecified, without bleeding; K57.30 Diverticulosis of large intestine without perforation or abscess without bleeding; N18.32 Chronic kidney disease, stage 3b; Z79.01 Long term (current) use of anticoagulants; I47.9 Paroxysmal tachycardia, unspecified; Z79.82 Long term (current) use of aspirin; Z79.899 Other long term (current) drug therapy; Z87.11 Personal history of peptic ulcer disease; Z86.010 Personal history of colon polyps; Z87.442 Personal history of urinary calculi; Z90.710 Acquired absence of both cervix and uterus; Z95.0 Presence of cardiac pacemaker; Z95.5 Presence of coronary angioplasty implant and graft; Z60.2 Problems related to living alone; Z63.4 Disappearance and death of family member; Z80.52 Family history of malignant neoplasm of bladder; Z82.49 Family history of ischemic heart disease and other diseases of the circulatory system; Z88.8 Allergy status to other drugs, medicaments and biological substances; Z88.1 Allergy status to other antibiotic agents; Z91.041 Radiographic dye allergy status; Z91.040 Latex allergy status; Z91.013 Allergy to seafood
CPT/HCPCS: 36415; 43239; 45378; 70450; 71046; 80048; 80053; 81003; 82272; 82607; 82728; 82746; 83540; 83550; 83605; 83735; 83880; 84484; 85025; 85027; 85610; 85730; 86850; 86900; 86901; 87635; 88305; 93005; 94760; 96361; 96374; 99285

== ENCOUNTER → 2020-10-07 | Outpatient (CLI) | payer MEDICARE, BC ==
[2020-10-07 12:53] LABS: ALT 21 U/L (4-34); AST 31 U/L (14-36); African American GFR (CKD) 33 (>60 ml/min/1.73 sqM); Albumin 4.1 g/dL (3.5-5.0); Albumin/Globulin Ratio 1.8; Alkaline Phosphatase 90 U/L (38-126); Anion Gap 9 mmol/L; Blood Urea Nitrogen 39 mg/dL (7-17); Carbon Dioxide 25 mmol/L (22-30); Chloride 104 mmol/L (98-107); Globulin 2.3 g/dL; Glucose 161 mg/dL (74-99); Magnesium 2.1 mg/dL (1.6-2.3); Non-African American GFR(CKD) 29 (>60 ml/min/1.73 sqM); Potassium 5.5 mmol/L (3.5-5.1); Sodium 138 mmol/L (137-145); Total Bilirubin 0.2 mg/dL (0.2-1.3); Total Protein 6.4 g/dL (6.3-8.2)
[2020-10-07 12:54] LABS: Basophils % (A) 0 %; Eosinophils # (A) 0.2 k/uL (0-0.7); Eosinophils % (A) 3 %; HCT 26.5 % (34.0-46.0); HGB 8.4 gm/dL (11.4-16.0); Hypochromasia Marked; Lymphocytes # (A) 1.4 k/uL (1.0-4.8); Lymphocytes % (A) 21 %; MCH 28.9 pg (25.0-35.0); MCHC 31.8 g/dL (31.0-37.0); MCV 90.7 fL (80.0-100.0); Mean Platelet Volume 7.1; Monocytes # (A) 0.5 k/uL (0-1.0); Monocytes % (A) 7 %; Neutrophils # (A) 4.4 k/uL (1.3-7.7); Neutrophils % (A) 66 %; Platelet Count 310 k/uL (150-450); RBC 2.92 m/uL (3.80-5.40); RDW 15.4 % (11.5-15.5); WBC 6.7 k/uL (3.8-10.6)
[2020-10-07 14:29] LABS: Erythrocyte Sedimentation Rate 36 mm/hr (0-20)
== END | disposition home or self-care (01) ==
LOC: LABWHC1 12:01
PROVIDERS: ATTEND Ophthalmology
DX: E11.3293 Type 2 diabetes mellitus with mild nonproliferative diabetic retinopathy without macular edema, bilateral (principal); H43.812 Vitreous degeneration, left eye; H26 Other cataract; H25.12 Age-related nuclear cataract, left eye; K92.2 Gastrointestinal hemorrhage, unspecified
CPT/HCPCS: 36415; 80053; 83735; 84100; 85025; 85652; 86140

== ENCOUNTER → 2020-10-11 | Outpatient (CLI) | payer MEDICARE, BC ==
--- NOTE | 2020-10-11 14:50 | XR ---
EXAMINATION TYPE: XR chest 2V DATE OF EXAM: 10/11/2020 COMPARISON: Chest x-ray 10/05/2020 HISTORY: J50.9 TECHNIQUE: Frontal and lateral views of the chest are obtained. FINDINGS: There is no focal air space opacity, pleural effusion, or pneumothorax seen. The cardiac silhouette size is stable, generator present in the left pectoral region, there are leads in right at rium and ventricle, rotation may accentuate the appearance of the heart2. Aorta is dense. There is f lattening hemidiaphragms and increased AP diameter chest possibly due to underlying COPD. The osseous structures are intact. IMPRESSION: No acute cardiopulmonary process. Coronary artery disease, cardiomegaly.
[2020-10-11 21:47] LABS: Basophils # (A) 0.01 X 10*3/uL (0.00-0.10); Basophils % (A) 0.2 %; Eosinophils # (A) 0.13 X 10*3/uL (0.04-0.35); Eosinophils % (A) 2.3 %; HCT 26.6 % (37.2-46.3); HGB 7.7 g/dL (12.0-15.0); Lymphocytes # (A) 1.02 X 10*3/uL (0.90-5.00); Lymphocytes % (A) 18.2 %; MCH 28.2 pg (27.0-32.0); MCHC 28.9 g/dL (32.0-37.0); MCV 97.4 fL (80.0-97.0); Mean Platelet Volume 10.2 fL (9.5-12.2); Monocytes # (A) 0.57 X 10*3/uL (0.20-1.00); Monocytes % (A) 10.2 %; Neutrophils # (A) 3.84 X 10*3/uL (1.80-7.70); Neutrophils % (A) 68.7 %; Platelet Count 298 X 10*3/uL (140-440); RBC 2.73 X 10*6/uL (4.10-5.20); RDW 16.6 % (11.5-14.5); WBC 5.59 X 10*3/uL (4.50-10.00)
[2020-10-11 22:37] LABS: ALT 19 U/L (8-44); AST 18 U/L (13-35); African American GFR (CKD) 44.6 (60.0-200.0); Albumin/Globulin Ratio 2.21 (1.60-3.17); Alkaline Phosphatase 85 U/L (41-126); BUN/Creat Ratio 24.29 Ratio (12.00-20.00); C Reactive Protein <0.4 mg/dL (0.0-0.8); Calcium 9.3 mg/dL (8.7-10.3); Carbon Dioxide 23.8 mmol/L (21.6-31.8); Chloride 110 mmol/L (96-109); Globulin 1.9 g/dL (1.6-3.3); Glucose 135 mg/dL (70-110); Magnesium 1.7 mg/dL (1.5-2.4); Non-African American GFR(CKD) 38.5 (60.0-200.0); Potassium 5.6 mmol/L (3.5-5.5); Sodium 144 mmol/L (135-145); Total Bilirubin 0.3 mg/dL (0.3-1.2); Total Protein 6.1 g/dL (6.2-8.2)
[2020-10-11 22:40] LABS: Creatine Kinase 47 U/L (26-186)
[2020-10-11 23:43] LABS: Erythrocyte Sedimentation Rate 54 mm/Hr (0-30)
[2020-10-12 01:52] LABS: INR 1.09 (0.90-1.11); Partial Thromboplastin Time 25.9 sec (23.5-31.0); Prothrombin Time 11.8 sec (9.9-11.9)
== END | disposition home or self-care (01) ==
LOC: LABWHC1 11:04
PROVIDERS: ATTEND Nurse Practitioner
DX: I11.0 Hypertensive heart disease with heart failure (principal); I25.10 Atherosclerotic heart disease of native coronary artery without angina pectoris; I50.9 Heart failure, unspecified; I48.91 Unspecified atrial fibrillation; T14.8XXD Other injury of unspecified body region, subsequent encounter; N19 Unspecified kidney failure; D64.9 Anemia, unspecified; X58.XXXD Exposure to other specified factors, subsequent encounter
CPT/HCPCS: 36415; 71046; 80053; 82550; 83735; 83880; 84100; 85025; 85610; 85652; 85730; 86140

== ENCOUNTER → 2020-10-20 | Day surgery (SDC) | payer MEDICARE, BC ==
[2020-10-17 08:22] VITALS: BMI 41.0
[~2020-10-20] MED LIST changes: -ALPRAZolam 0.25 MG TAB PO PRN; -ALPRAZolam 0.5 MG TAB PO PRN; -ASPIRIN 325 MG TAB PO STA; -ATORVASTATIN 40 MG TAB PO SCH; -ATORVASTATIN 80 MG TAB PO STA; -FERROUS SULFATE 325 MG TAB PO SCH; -HEPARIN SODIUM 1,000 UN/ML (10ML VL) IV ONE; -HEPARIN SODIUM 1,000 UN/ML (10ML VL) ONE; -HEPARIN SODIUM,PORCINE 30 ML 30 ML ONE; -INSULIN ASPART (NovoLOG) 100 UNIT/ML VIAL SQ ONE; -INSULIN GLARGINE HUM REC ANLOG 34 UNIT SQ SCH; -IOPAMIDOL-370 125ML BTL INJ ONE; -LIDOCAINE 1% INJ 10MG/ML (20 ML MDV) ONE; -LIDOCAINE 1% INJ 10MG/ML (20 ML MDV) SQ ONE; -LISINOPRIL 5 MG TAB PO SCH; -METOPROLOL SUCCINATE (ER) 50 MG TAB.ER.24H PO SCH; -MIDAZOLAM (PF) 2 MG/2 ML VIAL IV ONE; -NITROGLYCERIN SL TABS 0.4 MG TAB SUBLINGUAL PRN; -NON FORMULARY DRUG (Liraglutide [Victoza 2-Pak] 1.8 MG) SQ SCH; -RX INFO: IV CONTRAST WAS GIVEN 1 EACH MISC MISCELLANE PRN; +SIMETHICONE 40 MG/0.6 ML DROPS 2,000 MG/30 ML BOTTLE PO ONE; -SODIUM CHLORIDE 0.9% 1,000 ML IV SCH; -SODIUM CHLORIDE 0.9% 1,000 ML in EMPTY BAG 1 BAG IV ONE; -VERAPAMIL 2.5 MG/ML 2 ML AMP ONE; -fentaNYL (PF) 50 MCG/ML 2 ML AMP IV ONE; -fentaNYL (PF) 50 MCG/ML 2 ML AMP ONE
[2020-10-20 07:08] VITALS: BP 181/72; PULSE 60; RESP 18; TEMP 96.9
== END ==
LOC: ORWHC2ENDO 06:42
PROVIDERS: ATTEND Internal Medicine Gastroenterology
DX: D64.9 Anemia, unspecified (principal); R19.5 Other fecal abnormalities
CPT/HCPCS: 91110

== ENCOUNTER 2021-01-30 12:46 | Emergency (ER) | payer MEDICARE, BC ==
[2021-01-30] MEDS ORDERED: ACETAMINOPHEN TAB 500 MG TAB PO STA ×2 (13:37→14:54)
[2021-01-30] MEDS ORDERED: ONDANSETRON 4 MG/2 ML VIAL IVP STA (13:37)
[2021-01-30 13:38] VITALS: RESP 18; TEMP 101.5
--- NOTE | 2021-01-30 13:39 | ED ---
General Adult HPI - General Source: patient, RN notes reviewed Mode of arrival: ambulatory Limitations: no limitations <Osmin Foley - Last Filed: 01/30/21 13:38> <Radames Mancini - Last Filed: 01/30/21 18:14> - General Stated complaint: nausea/shaking Time Seen by Provider: 01/30/21 13:20 - History of Present Illness Initial comments: 70-year-old female presents emergency Department with chief complaint of nausea vomiting, feeling well. Patient was seen at Dr. Juarez's office had blood sugar which was normal. Patient resented here for further evaluation. Patient had a fever 101.5. She's not taking any Tylenol Motrin. She states that she feels very sick to her stomach, no chest pain or shortness of breath patient had COVID-19 in the past and has been vaccinated. She has no urinary complaints. (Osmin Foley) - Related Data Home Medications Medication Instructions Recorded Confirmed Atorvastatin [Lipitor] 40 mg PO HS 10/22/17 01/30/21 metFORMIN HCL [Glucophage] 850 mg PO TID 10/30/17 01/30/21 Insulin Glargine,Hum.rec.anlog 37 units SQ HS 12/16/17 01/30/21 [Toujeo Solostar] Liraglutide [Victoza 2-Ishan] 1.8 mg SQ HS 12/16/17 01/30/21 Furosemide [Lasix] 40 mg PO TID PRN 06/04/18 01/30/21 Ferrous Sulfate [Iron (65 MG 325 mg PO BID 01/19/19 01/30/21 Elemental)] Allopurinol [Zyloprim] 100 mg PO DAILY 03/25/19 01/30/21 calcitrioL [Calcitriol] 0.5 mcg PO WE 03/25/19 01/30/21 Sacubitril/Valsartan [Entresto 24 1 tab PO BID 04/13/19 01/30/21 mg-26 mg Tablet] Cholecalciferol [Vitamin D3 (25 25 mcg PO HS 10/02/20 01/30/21 Mcg = 1000 Iu)] Edoxaban Tosylate [Savaysa] 60 mg PO HS 01/30/21 01/30/21 Metoprolol Tartrate [Lopressor] 50 mg PO BID 01/30/21 01/30/21 Multivitamins, Thera [Multivitamin 1 tab PO HS 01/30/21 01/30/21 (formulary)] Allergies Allergy/AdvReac Type Severity Reaction Status Date / Time Iodinated Contrast Media Allergy Severe THROAT Verified 01/30/21 16:03 [Iodinated Contrast Media - SWELLING Oral and] iodine Allergy Severe THROAT Verified 01/30/21 16:03 SWELLING, RASH shellfish derived Allergy Severe THROAT Verified 01/30/21 16:03 SWELLING, RASH cefazolin sodium Allergy Dyspnea Verified 01/30/21 16:03 [From Kefzol] Latex, Natural Rubber Allergy Rash/Hives Verified 01/30/21 16:03 levofloxacin [From Levaquin] Allergy Rash/Hives Verified 01/30/21 16:03 piperacillin sodium Allergy THROAT Verified 01/30/21 16:03 [From Zosyn] SWELL, RASH tazobactam sodium Allergy THROAT Verified 01/30/21 16:03 [From Zosyn] SWELL, RASH verapamil AdvReac Severe Hallucinati Verified 01/30/21 16:03 ons seafood Allergy Severe throat Uncoded 01/30/21 13:35 swelling Review of Systems ROS Other: All systems not noted in ROS Statement are negative. <Osmin Foley - Last Filed: 01/30/21 13:38> ROS Other: All systems not noted in ROS Statement are negative. <Radames Mancini - Last Filed: 01/30/21 18:14> ROS Statement: Those systems with pertinent positive or pertinent negative responses have been documented in the HPI. Past Medical History Past Medical History: Atrial Fibrillation, Heart Failure, Diabetes Mellitus, Eye Disorder, Hyperlipidemia, Osteoarthritis (OA), Pneumonia, Skin Disorder, Vascular Disorder Additional Past Medical History / Comment(s): Chronic Venous Stasis BLE w/ chronic ulceration of the left lower extremity, current small area still left leg, CAD W/ coronary stenting Rt PDA 2013. History of kidney stones. Pacemaker (Brand:ST DAPHNE). HAS CATARACT LT. WOUNDS LLE, USING SILVADENE CREAM. EDEMA BLE. seeing Dr Calderon r/t kidney function. Small wound LLE. History of Any Multi-Drug Resistant Organisms: None Reported Past Surgical History: Cardiac Ablation, Heart Catheterization, Heart Catheterization With Stent, Hysterectomy, Pacemaker, Tubal Ligation Additional Past Surgical History / Comment(s): states has had mult sx on veins left leg, [place] with cardioversion, varicose vein stripping, one cardiac stent, rt cataract, kidney stone sx, LLE surgery with stent and skin grafting. ANEMIA- BLOOD TRANSFUSIONS. Past Anesthesia/Blood Transfusion Reactions: No Reported Reaction Additional Past Anesthesia/Blood Transfusion Reaction / Comment(s): PONV 40 PLUS YEARS AGO, AFTER REMOVAL KIDNEY STONE. Date of Last Stent Placement:: November 2013 Type of Cardiac Device: Permanent Pacemaker Device Placement Date:: 10/30/2017 Past Psychological History: No Psychological Hx Reported Smoking Status: Never smoker - Past Family History Father History Unknown: Yes Family Medical History: No Reported History Additional Family Medical History / Comment(s): Aneurysm, passed in 2000. Mother Family Medical History: Cancer Additional Family Medical History / Comment(s): Bladder and has since passed. <Osmin Foley - Last Filed: 01/30/21 13:38> General Exam Limitations: no limitations <Osmin Foley - Last Filed: 01/30/21 13:38> Course Vital Signs 01/30/21 13:35 Temperature 101.5 F H Pulse Rate 60 Respiratory 18 Rate Blood Pressure 158/70 O2 Sat by Pulse 96 Oximetry Medical Decision Making - Lab Data Result diagrams: 01/30/21 13:57 01/30/21 13:57 <Radames Mancini - Last Filed: 01/30/21 18:14> - Medical Decision Making Dictation was produced using [employer] dictation software. please excuse any grammatical, word or spelling errors. Chief Complaint: 70-year-old female with past medical history of A. fib, diabetes, dyslipidemia and pneumonia presents to the emergency department for shaking chills History of Present Illness: Is a 70-year-old female she is a mother want to one of our hospitalist. Patient states that she was in her usual state of health this morning. He went to go get some food when the local restaurants when all of a sudden she began experiencing shaking chills. Patient denies any obvious sick exposures. She has a mild headache. She denies that this headache is worsening of her life. She has no neck stiffness. Denies any chest pain. No shortness of breath, no cough no runny nose. No abdominal pain. No rash. She has had her coronavirus vaccine in June. She also had coronavirus infection. States that at that time she did have shortness of breath. She has no such respiratory symptoms today. Patient states she gets frequent urinary tract infections that she reports having asymptomatic. The ROS documented in this emergency department record has been reviewed and confirmed by me. Those systems with pertinent positive or negative responses have been documented in the HPI. All other systems are other negative and/or noncontributory. PHYSICAL EXAM: General Impression: Alert and oriented x3, not in acute distress HEENT: Normocephalic atraumatic, extra-ocular movements intact, pupils equal and reactive to light bilaterally, mucous membranes moist. Cardiovascular: Heart regular rate and rhythm Chest: Able to complete full sentences, no retractions, no tachypnea Abdomen: abdomen soft, non-tender, non-distended, no organomegaly Musculoskeletal: Pulses present and equal in all extremities, no peripheral edema Motor: no focal deficits noted Neurological: CN II-XII grossly intact, no focal motor or sensory deficits noted Skin: Intact with no visualized rashes Psych: Normal affect and mood ED course: 70-year-old female presents to the emergency department for constitutional symptoms 1 day. Vital signs upon arrival shows her to 101.5, rest of vital signs within acceptable limits. Repeat vital signs are improved with admission patient of antipyretics. Lavatory evaluation obtained. CBC is unremarkable. No leukocytosis. Metabolic panel is within acceptable limits. PCR negative for influenza A, B, RSV and coronavirus. Chest x-ray shows perhaps underlying bronchial wall thickening cur rently for bronchitis. Patient hasn't respiratory symptoms. Patient observed in the emergency department for approximately 5 hours found to be in stable medical condition. Patient having difficulty providing urine specimen. Patient's son-in-law is Dr. Juarez hospitalist. He is also patient's primary care physician. Patient sent home with a urine specimen cup to provide a urine sample that she can take to primary care physician's office. I did speak about this plan with Dr. Juarez who is agreeable with this plan. At this point slightly patient's symptoms are secondary to viral illness. She is agreeable with plan. Patient's multiple ALLERGIES. She is given a starter pack of Bactrim. (Radames Mancini) - Lab Data Lab Results 01/30/21 01/30/21 01/30/21 Range/Units 13:57 13:57 13:57 WBC 6.5 (3.8-10.6) k/uL RBC 4.21 (3.80-5.40) m/uL Hgb 12.4 (11.4-16.0) gm/dL Hct 39.1 (34.0-46.0) % MCV 92.7 (80.0-100.0) fL MCH 29.4 (25.0-35.0) pg MCHC 31.7 (31.0-37.0) g/dL RDW 16.4 H (11.5-15.5) % Plt Count 237 (150-450) k/uL MPV 7.9 Neutrophils % 87 % Lymphocytes % 7 % Monocytes % 2 % Eosinophils % 2 % Basophils % 0 % Neutrophils # 5.7 (1.3-7.7) k/uL Lymphocytes # 0.5 L (1.0-4.8) k/uL Monocytes # 0.2 (0-1.0) k/uL Eosinophils # 0.2 (0-0.7) k/uL Basophils # 0.0 (0-0.2) k/uL Anisocytosis Slight Sodium 141 (137-145) mmol/L Potassium 5.4 H (3.5-5.1) mmol/L Chloride 105 (98-107) mmol/L Carbon Dioxide 25 (22-30) mmol/L Anion Gap 11 mmol/L BUN 42 H (7-17) mg/dL Creatinine 1.32 H (0.52-1.04) mg/dL Est GFR (CKD-EPI)AfAm 48 (>60 ml/min/1.73 sqM) Est GFR (CKD-EPI)NonAf 42 (>60 ml/min/1.73 sqM) Glucose 180 H (74-99) mg/dL Plasma Lactic Acid Adrien 1.9 (0.7-2.0) mmol/L Calcium 9.3 (8.4-10.2) mg/dL Total Bilirubin 0.8 (0.2-1.3) mg/dL AST 25 (14-36) U/L ALT 12 (4-34) U/L Alkaline Phosphatase 74 (38-126) U/L Total Protein 7.0 (6.3-8.2) g/dL Albumin 4.2 (3.5-5.0) g/dL Influenza Type A (PCR) (Not Detectd) Influenza Type B (PCR) (Not Detectd) RSV (PCR) (Not Detectd) SARS-CoV-2 (PCR) (Not Detectd) 01/30/21 Range/Units 15:09 WBC (3.8-10.6) k/uL RBC (3.80-5.40) m/uL Hgb (11.4-16.0) gm/dL Hct (34.0-46.0) % MCV (80.0-100.0) fL MCH (25.0-35.0) pg MCHC (31.0-37.0) g/dL RDW (11.5-15.5) % Plt Count (150-450) k/uL MPV Neutrophils % % Lymphocytes % % Monocytes % % Eosinophils % % Basophils % % Neutrophils # (1.3-7.7) k/uL Lymphocytes # (1.0-4.8) k/uL Monocytes # (0-1.0) k/uL Eosinophils # (0-0.7) k/uL Basophils # (0-0.2) k/uL Anisocytosis Sodium (137-145) mmol/L Potassium (3.5-5.1) mmol/L Chloride (98-107) mmol/L Carbon Dioxide (22-30) mmol/L Anion Gap mmol/L BUN (7-17) mg/dL Creatinine (0.52-1.04) mg/dL Est GFR (CKD-EPI)AfAm (>60 ml/min/1.73 sqM) Est GFR (CKD-EPI)NonAf (>60 ml/min/1.73 sqM) Glucose (74-99) mg/dL Plasma Lactic Acid Adrien (0.7-2.0) mmol/L Calcium (8.4-10.2) mg/dL Total Bilirubin (0.2-1.3) mg/dL AST (14-36) U/L ALT (4-34) U/L Alkaline Phosphatase (38-126) U/L Total Protein (6.3-8.2) g/dL Albumin (3.5-5.0) g/dL Influenza Type A (PCR) Not Detected (Not Detectd) Influenza Type B (PCR) Not Detected (Not Detectd) RSV (PCR) Not Detected (Not Detectd) SARS-CoV-2 (PCR) Not Detected (Not Detectd) Disposition <Osmin Foley - Last Filed: 01/30/21 13:38> Is patient prescribed a controlled substance at d/c from ED?: No <Radames Mancini - Last Filed: 01/30/21 18:14> Clinical Impression: Fever Disposition: HOME SELF-CARE Condition: Fair Instructions (If sedation given, give patient instructions): Fever in Adults (ED) Referrals: Edgardo Juarez MD [Primary Care Provider] - 1-2 days
[2021-01-30 14:11] LABS: WBC 6.5 k/uL (3.8-10.6)
[2021-01-30 14:12] LABS: Anisocytosis Slight; Basophils % (A) 0 %; Eosinophils # (A) 0.2 k/uL (0-0.7); Eosinophils % (A) 2 %; HCT 39.1 % (34.0-46.0); HGB 12.4 gm/dL (11.4-16.0); Lymphocytes # (A) 0.5 k/uL (1.0-4.8); Lymphocytes % (A) 7 %; MCH 29.4 pg (25.0-35.0); MCHC 31.7 g/dL (31.0-37.0); MCV 92.7 fL (80.0-100.0); Mean Platelet Volume 7.9; Monocytes # (A) 0.2 k/uL (0-1.0); Monocytes % (A) 2 %; Neutrophils # (A) 5.7 k/uL (1.3-7.7); Neutrophils % (A) 87 %; Platelet Count 237 k/uL (150-450); RBC 4.21 m/uL (3.80-5.40); RDW 16.4 % (11.5-15.5)
[2021-01-30 14:34] LABS: Albumin 4.2 g/dL (3.5-5.0); Calcium 9.3 mg/dL (8.4-10.2); Potassium 5.4 mmol/L (3.5-5.1); Total Bilirubin 0.8 mg/dL (0.2-1.3)
--- NOTE | 2021-01-30 14:36 | XR ---
EXAMINATION TYPE: XR chest 2V DATE OF EXAM: 01/30/2021 COMPARISON: Chest x-ray 10/12/2020 HISTORY: Fever and nausea TECHNIQUE: Frontal and lateral views of the chest are obtained on 3 images FINDINGS: There is no focal air space opacity, pleural effusion, or pneumothorax seen. The cardiac silhouette size is stable and enlarged. There are leads in the right atrium and ventricle, generator in left pectoral region. Increased AP diameter of the chest is noted. There is bronchial wall thicken ing. The osseous structures are intact. There are overlying artifacts. There are dense vascular calc ifications, patient is rotated. IMPRESSION: Persistent cardiomegaly. There may be underlying bronchial wall thickening, orally for b ronchitis.
[2021-01-30] MEDS ORDERED: SULFAMETH-TMP DS STARTER PACK 2 TAB BTL PO STA (18:14)
[2021-01-30 18:26] VITALS: BP 112/68; PULSE 81
== END 2021-01-30 18:26 | disposition home or self-care (01) ==
LOC: EC 12:46
DX: R50.9 Fever, unspecified (principal); I48.91 Unspecified atrial fibrillation; I50.9 Heart failure, unspecified; I25.10 Atherosclerotic heart disease of native coronary artery without angina pectoris; E11.36 Type 2 diabetes mellitus with diabetic cataract; E78.5 Hyperlipidemia, unspecified; M19.90 Unspecified osteoarthritis, unspecified site; Z91.041 Radiographic dye allergy status; Z88.1 Allergy status to other antibiotic agents; Z91.040 Latex allergy status; Z88.5 Allergy status to narcotic agent; Z79.4 Long term (current) use of insulin; Z95.0 Presence of cardiac pacemaker; Z90.710 Acquired absence of both cervix and uterus; Z98.51 Tubal ligation status; Z79.01 Long term (current) use of anticoagulants; Z87.442 Personal history of urinary calculi; Z79.899 Other long term (current) drug therapy; Z20.822 Contact with and (suspected) exposure to COVID-19
CPT/HCPCS: 36415; 71046; 80053; 83605; 85025; 87636; 99284

== ENCOUNTER 2023-09-14 12:30 | Inpatient (IN) | payer MEDICARE ==
[2023-09-14 13:09] LABS: Basophils % (A) 1 %; Eosinophils # (A) 0.4 k/uL (0-0.7); Eosinophils % (A) 6 %; HCT 36.6 % (34.0-46.0); HGB 11.4 gm/dL (11.4-16.0); Lymphocytes # (A) 1.1 k/uL (1.0-4.8); Lymphocytes % (A) 18 %; MCH 29.9 pg (25.0-35.0); MCHC 31.1 g/dL (31.0-37.0); MCV 96.2 fL (80.0-100.0); Mean Platelet Volume 8.6; Monocytes # (A) 0.4 k/uL (0-1.0); Monocytes % (A) 6 %; Neutrophils # (A) 4.1 k/uL (1.3-7.7); Neutrophils % (A) 68 %; Platelet Count 248 k/uL (150-450); RDW 15.6 % (11.5-15.5); WBC 6.1 k/uL (3.8-10.6)
--- NOTE | 2023-09-14 13:09 | ED ---
SOB HPI - General Chief Complaint: Shortness of Breath Stated Complaint: Shortness of breath, vaginal bleeding Time Seen by Provider: 09/14/23 12:32 Source: patient, RN notes reviewed Mode of arrival: wheelchair Limitations: no limitations - History of Present Illness Initial Comments: 73-year-old female with a history of atrial fibrillation on Eliquis CHF diabetes among other medical problems who presents today with complaints of 3 to 4 days of shortness of breath some exertional dyspnea fatigue per her friend is with her she looks a little more pale than usual. She apparently had blood in the toilet states she is not sure but believes it may have come from her vagina. She does also have a history of UTIs but has no symptoms at this time. No overt fevers chills or sweats. Patient does states she has been having some also right upper quadrant/flank pain over the last day or so. No other current complaints or modifying factors she was sent in by her physician. MD Complaint: shortness of breath - Related Data Home Medications Medication Instructions Recorded Confirmed Atorvastatin [Lipitor] 40 mg PO HS 10/22/17 09/14/23 metFORMIN HCL [Glucophage] 850 mg PO TID 10/30/17 09/14/23 Insulin Glargine,Hum.rec.anlog 10 units SQ HS 12/16/17 09/14/23 [Touherrera Solostar] Furosemide [Lasix] 40 mg PO BID 06/04/18 09/14/23 Ferrous Sulfate [Iron (65 MG 325 mg PO BID 01/19/19 09/14/23 Elemental)] allopurinoL [Zyloprim] 100 mg PO DAILY 03/25/19 09/14/23 calcitrioL 0.25 mcg PO Q48H 03/25/19 09/14/23 Sacubitril/Valsartan [Entresto 24 1 tab PO BID 04/13/19 09/14/23 mg-26 mg Tablet] Cholecalciferol [Vitamin D3 (25 25 mcg PO HS 10/02/20 09/14/23 Mcg = 1000 Iu)] Edoxaban Tosylate [Savaysa] 60 mg PO HS 01/30/21 09/14/23 Metoprolol Tartrate [Lopressor] 50 mg PO BID 01/30/21 09/14/23 Brimonidine Tartrate [Alphagan P 1 drop BOTH EYES BID 09/14/23 09/14/23 0.2% Ophth Soln] Dapagliflozin Propanediol [Farxiga] 10 mg PO DAILY 09/14/23 09/14/23 Allergies Allergy/AdvReac Type Severity Reaction Status Date / Time Iodinated Contrast Media Allergy Severe THROAT Verified 09/14/23 14:17 [Iodinated Contrast Media - SWELLING Oral and] iodine Allergy Severe THROAT Verified 09/14/23 14:17 SWELLING, RASH shellfish derived Allergy Severe THROAT Verified 09/14/23 14:17 SWELLING, RASH cefazolin sodium Allergy Dyspnea Verified 09/14/23 14:17 [From Kefzol] Latex, Natural Rubber Allergy Rash/Hives Verified 09/14/23 14:17 levofloxacin [From Levaquin] Allergy Rash/Hives Verified 09/14/23 14:17 piperacillin sodium Allergy THROAT Verified 09/14/23 14:17 [From Zosyn] SWELL, RASH tazobactam sodium Allergy THROAT Verified 09/14/23 14:17 [From Zosyn] SWELL, RASH verapamil AdvReac Severe Hallucinati Verified 09/14/23 14:17 ons seafood Allergy Severe throat Uncoded 01/30/21 13:35 swelling Review of Systems ROS Statement: Those systems with pertinent positive or pertinent negative responses have been documented in the HPI. ROS Other: All systems not noted in ROS Statement are negative. Past Medical History Past Medical History: Atrial Fibrillation, Heart Failure, Diabetes Mellitus, Eye Disorder, Hyperlipidemia, Osteoarthritis (OA), Pneumonia, Skin Disorder, Vascular Disorder Additional Past Medical History / Comment(s): Chronic Venous Stasis BLE w/ chronic ulceration of the left lower extremity, current small area still left leg, CAD W/ coronary stenting Rt PDA 2013. History of kidney stones. Pacemaker (Brand:ST DAPHNE). HAS CATARACT LT. WOUNDS LLE, USING SILVADENE CREAM. EDEMA BLE. seeing Dr Calderon r/t kidney function. Small wound LLE. History of Any Multi-Drug Resistant Organisms: None Reported Past Surgical History: Cardiac Ablation, Heart Catheterization, Heart Catheterization With Stent, Hysterectomy, Pacemaker, Tubal Ligation Additional Past Surgical History / Comment(s): states has had mult sx on veins left leg, [place] with cardioversion, varicose vein stripping, one cardiac stent, rt cataract, kidney stone sx, LLE surgery with stent and skin grafting. ANEMIA- BLOOD TRANSFUSIONS. Past Anesthesia/Blood Transfusion Reactions: No Reported Reaction Additional Past Anesthesia/Blood Transfusion Reaction / Comment(s): PONV 40 PLUS YEARS AGO, AFTER REMOVAL KIDNEY STONE. Date of Last Stent Placement:: November 2013 Type of Cardiac Device: Permanent Pacemaker Device Placement Date:: 10/30/2017 Past Psychological History: No Psychological Hx Reported Smoking Status: Never smoker - Past Family History Father History Unknown: Yes Family Medical History: No Reported History Additional Family Medical History / Comment(s): Aneurysm, passed in 2000. Mother Family Medical History: Cancer Additional Family Medical History / Comment(s): Bladder and has since passed. General Exam - General Exam Comments Initial Comments: Is a well-developed well-nourished awake alert oriented x 4 female Limitations: no limitations General appearance: alert, in no apparent distress Head exam: Present: atraumatic, normocephalic, normal inspection Eye exam: Present: normal appearance, PERRL, EOMI. Absent: scleral icterus, conjunctival injection, periorbital swelling ENT exam: Present: mucous membranes dry Neck exam: Present: normal inspection, full ROM, other (No stridor JVD or bruits). Absent: tenderness, meningismus, lymphadenopathy Respiratory exam: Present: decreased breath sounds. Absent: respiratory distress, wheezes, rales, rhonchi, stridor, chest wall tenderness Cardiovascular Exam: Present: regular rate, normal rhythm, normal heart sounds. Absent: systolic murmur, diastolic murmur, rubs, gallop, clicks GI/Abdominal exam: Present: soft, normal bowel sounds. Absent: distended, tenderness, guarding, rebound, rigid Extremities exam: Present: full ROM, normal capillary refill, other (Chronic stasis dermatitis). Absent: tenderness, pedal edema, joint swelling, calf tenderness Back exam: Present: normal inspection Neurological exam: Present: alert, oriented X3, CN II-XII intact Psychiatric exam: Present: normal affect, normal mood Skin exam: Present: warm, dry, intact, normal color. Absent: rash Course Vital Signs 09/14/23 09/14/23 09/14/23 12:34 14:00 14:30 Temperature 98.3 F Pulse Rate 60 60 60 Respiratory 20 16 16 Rate Blood Pressure 136/80 121/57 126/59 O2 Sat by Pulse 98 98 Oximetry 05/04/24 05/04/24 15:00 15:30 Temperature Pulse Rate 60 60 Respiratory 16 17 Rate Blood Pressure 127/60 124/53 O2 Sat by Pulse 98 100 Oximetry Medical Decision Making - Medical Decision Making Evaluation the patient was performed the pelvic and rectal exam performed by Tawnya torres physician guest services assistant. Some dried blood noted in the vaginal vault the patient does have a history of hysterectomy in the past. Patient was informed about the elevated BNP evidence of fluid retention. As well as UTI. Patient has multiple allergies initial dose of Bactrim given. Was pt. sent in by a medical professional or institution (, PA, FELT HAT MELLOWING MACHINE OPERATOR, urgent care, hospital, or prison...) When possible be specific @ -No Did you speak to anyone other than the patient for history (EMS, parent, family, police, friend...)? What history was obtained from this source @ -Family Did you review nursing and triage notes (agree or disagree)? Why? @ -I reviewed and agree with nursing and triage notes Were old charts reviewed (outside hosp., previous admission, EMS record, old EKG, old radiological studies, urgent care reports/EKG's, prison records)? Report findings @ -Old charts were reviewed Differential Diagnosis (chest pain, altered mental status, abdominal pain women, abdominal pain men, vaginal bleeding, weakness, fever, dyspnea, syncope, headache, dizziness, GI bleed, back pain, seizure, CVA, palpatations, mental health, musculoskeletal)? @ -Weakness dyspnea, anemia EKG interpreted by me (3pts min.). @ -As above EKG interpreted by me pacemaker rhythm at 60 A-fib QRS duration 170 QT/QTc 506/[address]-T wave changes X-rays interpreted by me (1pt min.). @ -X-ray interpreted by me no acute process KUB interpreted by me no acute process CT interpreted by me (1pt min.). @ -None done U/S interpreted by me (1pt. min.). @ -None done What testing was considered but not performed or refused? (CT, X-rays, U/S, labs)? Why? @ -None What meds were considered but not given or refused? Why? @ -None Did you discuss the management of the patient with other professionals (pro fessionals i.e. , PA, FELT HAT MELLOWING MACHINE OPERATOR, lab, RT, psych nurse, psychotherapist social worker, filter helper, teacher, development officer, case briefer)? Give summary @ -Dr. Juarez and Milagros covering for Dr. Christopher Was smoking cessation discussed for >3mins.? @ -No Was critical care preformed (if so, how long)? @ -No Were there social determinants of health that impacted care today? How? (Homelessness, low income, unemployed, alcoholism, drug addiction, transportation, low edu. Level, literacy, decrease access to med. care, intermediate, rehab)? @ -No Was there de-escalation of care discussed even if they declined (Discuss DNR or withdrawal of care, Hospice)? DNR status @ -No What co-morbidities impacted this encounter? (DM, HTN, Smoking, COPD, CAD, Cancer, CVA, ARF, Chemo, Hep., AIDS, mental health diagnosis, sleep apnea, morbid obesity)? @ -Atrial fibrillation, CHF, diabetes, low blood sugar history Was patient admitted / discharged? Hospital course, mention meds given and route, prescriptions, significant lab abnormalities, going to OR and other pertinent info. @ -Hospital course was admitted for inpatient evaluation and treatment Undiagnosed new problem with uncertain prognosis? @ -No Drug Therapy requiring intensive monitoring for toxicity (Heparin, Nitro, Insulin, Cardizem)? @ -No Were any procedures done? @ -No Diagnosis/symptom? @ -Weakness, vaginal bleeding, elevated BNP, chronic A-fib, UTI Acute, or Chronic, or Acute on Chronic? @ -Acute Uncomplicated (without systemic symptoms) or Complicated (systemic symptoms)? @ -Complicated Side effects of treatment? @ -No Exacerbation, Progression, or Severe Exacerbation? @ -No Poses a threat to life or bodily function? How? (Chest pain, [place], [place], pneumonia, PE, COPD, DKA, ARF, appy, cholecystitis, CVA, Diverticulitis, Homicidal, Suicidal, threat to staff... and all critical care pts) @ -H[place] - Lab Data Result diagrams: 09/14/23 12:57 09/14/23 12:57 Lab Results 09/14/23 09/14/23 09/14/23 Range/Units 12:57 12:57 12:57 WBC 6.1 (3.8-10.6) k/uL RBC 3.80 (3.80-5.40) m/uL Hgb 11.4 (11.4-16.0) gm/dL Hct 36.6 (34.0-46.0) % MCV 96.2 (80.0-100.0) fL MCH 29.9 (25.0-35.0) pg MCHC 31.1 (31.0-37.0) g/dL RDW 15.6 H (11.5-15.5) % Plt Count 248 (150-450) k/uL MPV 8.6 Neutrophils % 68 % Lymphocytes % 18 % Monocytes % 6 % Eosinophils % 6 % Basophils % 1 % Neutrophils # 4.1 (1.3-7.7) k/uL Lymphocytes # 1.1 (1.0-4.8) k/uL Monocytes # 0.4 (0-1.0) k/uL Eosinophils # 0.4 (0-0.7) k/uL Basophils # 0.0 (0-0.2) k/uL Sodium 142 (137-145) mmol/L Potassium 5.2 H (3.5-5.1) mmol/L Chloride 113 H (98-107) mmol/L Carbon Dioxide 18 L (22-30) mmol/L Anion Gap 11 mmol/L BUN 34 H (7-17) mg/dL Creatinine 1.37 H (0.52-1.04) mg/dL Est GFR (CKD-EPI)AfAm 45 (>60 ml/min/1.73 sqM) Est GFR (CKD-EPI)NonAf 39 (>60 ml/min/1.73 sqM) Glucose 112 H (74-99) mg/dL Plasma Lactic Acid Adrien 1.3 (0.7-2.0) mmol/L Calcium 8.7 (8.4-10.2) mg/dL Magnesium 1.6 (1.6-2.3) mg/dL Total Bilirubin 0.5 (0.2-1.3) mg/dL AST 28 (14-36) U/L ALT 26 (4-34) U/L Alkaline Phosphatase 65 (38-126) U/L Ammonia <9 (<30) umol/L Creatine Kinase 60 (30-135) U/L Troponin I (0.000-0.034) ng/mL NT-Pro-B Natriuret Pep 8510 pg/mL Total Protein 6.2 L (6.3-8.2) g/dL Albumin 3.6 (3.5-5.0) g/dL Lipase 294 (23-300) U/L Urine Color Urine Appearance (Clear) Urine pH (5.0-8.0) Ur Specific [place] (1.001-1.035) Urine Protein (Negative) Urine Glucose (UA) (Negative) Urine Ketones (Negative) Urine Blood (Negative) Urine Nitrite (Negative) Urine Bilirubin (Negative) Urine Urobilinogen (<2.0) mg/dL Ur Leukocyte Esterase (Negative) Urine RBC (0-5) /hpf Urine WBC (0-5) /hpf Urine WBC Clumps (None) /hpf Ur Squamous Epith Cells (0-4) /hpf Urine Bacteria (None) /hpf Hyaline Casts (0-2) /lpf Urine Mucus (None) /hpf Stool Occult Blood (Negative) Blood Type Blood Type Recheck Bld Type Recheck Status Antibody Screen Spec Expiration Date 09/14/23 09/14/23 09/14/23 Range/Units 12:57 12:57 13:30 WBC (3.8-10.6) k/uL RBC (3.80-5.40) m/uL Hgb (11.4-16.0) gm/dL Hct (34.0-46.0) % MCV (80.0-100.0) fL MCH (25.0-35.0) pg MCHC (31.0-37.0) g/dL RDW (11.5-15.5) % Plt Count (150-450) k/uL MPV Neutrophils % % Lymphocytes % % Monocytes % % Eosinophils % % Basophils % % Neutrophils # (1.3-7.7) k/uL Lymphocytes # (1.0-4.8) k/uL Monocytes # (0-1.0) k/uL Eosinophils # (0-0.7) k/uL Basophils # (0-0.2) k/uL Sodium (137-145) mmol/L Potassium (3.5-5.1) mmol/L Chloride (98-107) mmol/L Carbon Dioxide (22-30) mmol/L Anion Gap mmol/L BUN (7-17) mg/dL Creatinine (0.52-1.04) mg/dL Est GFR (CKD-EPI)AfAm (>60 ml/min/1.73 sqM) Est GFR (CKD-EPI)NonAf (>60 ml/min/1.73 sqM) Glucose (74-99) mg/dL Plasma Lactic Acid Adrien (0.7-2.0) mmol/L Calcium (8.4-10.2) mg/dL Magnesium (1.6-2.3) mg/dL Total Bilirubin (0.2-1.3) mg/dL AST (14-36) U/L ALT (4-34) U/L Alkaline Phosphatase (38-126) U/L Ammonia (<30) umol/L Creatine Kinase (30-135) U/L Troponin I 0.018 (0.000-0.034) ng/mL NT-Pro-B Natriuret Pep pg/mL Total Protein (6.3-8.2) g/dL Albumin (3.5-5.0) g/dL Lipase (23-300) U/L Urine Color Urine Appearance (Clear) Urine pH (5.0-8.0) Ur Specific [place] (1.001-1.035) Urine Protein (Negative) Urine Glucose (UA) (Negative) Urine Ketones (Negative) Urine Blood (Negative) Urine Nitrite (Negative) Urine Bilirubin (Negative) Urine Urobilinogen (<2.0) mg/dL Ur Leukocyte Esterase (Negative) Urine RBC (0-5) /hpf Urine WBC (0-5) /hpf Urine WBC Clumps (None) /hpf Ur Squamous Epith Cells (0-4) /hpf Urine Bacteria (None) /hpf Hyaline Casts (0-2) /lpf Urine Mucus (None) /hpf Stool Occult Blood Negative (Negative) Blood Type A Positive Blood Type Recheck A Pos Bld Type Recheck Status No Antibody Screen NEGATIVE Spec Expiration Date 09/17/2023235609/14/23 Range/Units 14:47 WBC (3.8-10.6) k/uL RBC (3.80-5.40) m/uL Hgb (11.4-16.0) gm/dL Hct (34.0-46.0) % MCV (80.0-100.0) fL MCH (25.0-35.0) pg MCHC (31.0-37.0) g/dL RDW (11.5-15.5) % Plt Count (150-450) k/uL MPV Neutrophils % % Lymphocytes % % Monocytes % % Eosinophils % % Basophils % % Neutrophils # (1.3-7.7) k/uL Lymphocytes # (1.0-4.8) k/uL Monocytes # (0-1.0) k/uL Eosinophils # (0-0.7) k/uL Basophils # (0-0.2) k/uL Sodium (137-145) mmol/L Potassium (3.5-5.1) mmol/L Chloride (98-107) mmol/L Carbon Dioxide (22-30) mmol/L Anion Gap mmol/L BUN (7-17) mg/dL Creatinine (0.52-1.04) mg/dL Est GFR (CKD-EPI)AfAm (>60 ml/min/1.73 sqM) Est GFR (CKD-EPI)NonAf (>60 ml/min/1.73 sqM) Glucose (74-99) mg/dL Plasma Lactic Acid Adrien (0.7-2.0) mmol/L Calcium (8.4-10.2) mg/dL Magnesium (1.6-2.3) mg/dL Total Bilirubin (0.2-1.3) mg/dL AST (14-36) U/L ALT (4-34) U/L Alkaline Phosphatase (38-126) U/L Ammonia (<30) umol/L Creatine Kinase (30-135) U/L Troponin I (0.000-0.034) ng/mL NT-Pro-B Natriuret Pep pg/mL Total Protein (6.3-8.2) g/dL Albumin (3.5-5.0) g/dL Lipase (23-300) U/L Urine Color Colorless Urine Appearance Cloudy H (Clear) Urine pH 5.5 (5.0-8.0) Ur Specific [place] 1.014 (1.001-1.035) Urine Protein Trace H (Negative) Urine Glucose (UA) 4+ H (Negative) Urine Ketones Negative (Negative) Urine Blood Moderate H (Negative) Urine Nitrite Positive H (Negative) Urine Bilirubin Negative (Negative) Urine Urobilinogen <2.0 (<2.0) mg/dL Ur Leukocyte Esterase Large H (Negative) Urine RBC 3 (0-5) /hpf Urine WBC 37 H (0-5) /hpf Urine WBC Clumps Few H (None) /hpf Ur Squamous Epith Cells <1 (0-4) /hpf Urine Bacteria Many H (None) /hpf Hyaline Casts 1 (0-2) /lpf Urine Mucus Rare H (None) /hpf Stool Occult Blood (Negative) Blood Type Blood Type Recheck Bld Type Recheck Status Antibody Screen Spec Expiration Date Disposition Clinical Impression: Dyspnea, Vaginal bleeding, Elevated brain natriuretic peptide (BNP) level, Urinary tract infection, Weakness Disposition: ADMITTED IP TO THIS HOSP Condition: Stable Referrals: Edgardo Juarez MD [Primary Care Provider] - 1-2 days Time of Disposition: 16:30 Decision Date: 09/14/23 Decision Time: 16:30
[2023-09-14 13:20] LABS: Lactic Acid, Venous 1.3 mmol/L (0.7-2.0)
[2023-09-14 13:41] LABS: ALT 26 U/L (4-34); AST 28 U/L (14-36); African American GFR (CKD) 45 (>60 ml/min/1.73 sqM); Albumin 3.6 g/dL (3.5-5.0); Alkaline Phosphatase 65 U/L (38-126); Anion Gap 11 mmol/L; Blood Urea Nitrogen 34 mg/dL (7-17); Calcium 8.7 mg/dL (8.4-10.2); Carbon Dioxide 18 mmol/L (22-30); Chloride 113 mmol/L (98-107); Creatine Kinase 60 U/L (30-135); Glucose 112 mg/dL (74-99); Lipase 294 U/L (23-300); Magnesium 1.6 mg/dL (1.6-2.3); Non-African American GFR(CKD) 39 (>60 ml/min/1.73 sqM); Potassium 5.2 mmol/L (3.5-5.1); Sodium 142 mmol/L (137-145); Total Bilirubin 0.5 mg/dL (0.2-1.3); Total Protein 6.2 g/dL (6.3-8.2)
[2023-09-14 13:49] LABS: NT-Pro-B-Type Natriuretic Pept 8510 pg/mL
--- NOTE | 2023-09-14 14:10 | XR ---
EXAMINATION TYPE: XR KUB DATE OF EXAM: 09/14/2023 COMPARISON: None HISTORY: upper quadrant abdomen pain TECHNIQUE: AP abdomen supine view FINDINGS: Nonspecific bowel gas is present. No mass effect is evident. Iliac stent is present. Psoas margins are normal. Osseous structures appear intact. Organomegaly is not evident. IMPRESSION: 1. Nonspecific abdomen.
--- NOTE | 2023-09-14 14:11 | XR ---
EXAMINATION TYPE: XR chest 2V DATE OF EXAM: 09/14/2023 COMPARISON: 01/30/2021 INDICATION: Weakness short of breath TECHNIQUE: Frontal and lateral views of the chest are obtained. FINDINGS: The heart size is enlarged. Pacemaker overlies left chest. The pulmonary vasculature is normal. The lungs are clear. IMPRESSION: 1. No acute pulmonary process. 2. Mild cardiomegaly
[2023-09-14 15:02] LABS: Appearance,Urine Cloudy (Clear); Bacteria,Urine Many /hpf; Bilirubin,Urine Negative (Negative); Blood,Urine Moderate (Negative); Color,Urine Colorless; Glucose,Urine (UA) 4+ (Negative); Hyaline Casts,Urine 1 /lpf (0-2); Ketones,Urine Negative (Negative); Leukocyte Esterase,Urine Large (Negative); Mucus,Urine Rare /hpf; Nitrite,Urine Positive (Negative); PH, Urine 5.5 (5.0-8.0); Protein,Urine Trace (Negative); RBC,Urine 3 /hpf (0-5); Specific Gravity,Urine 1.014 (1.001-1.035); Squamous Epithelial Cell,Urine <1 /hpf (0-4); Urobilinogen,Urine <2.0 mg/dL (<2.0); WBC,Urine 37 /hpf (0-5)
[2023-09-14] MEDS ORDERED: NALOXONE 0.4 MG/ML 1 ML VIAL IV PRN (17:37)
[2023-09-14] MEDS: FUROSEMIDE 10 MG/ML 4 ML VIAL IV STA (17:49)
[2023-09-14] MEDS ORDERED: ONDANSETRON 4 MG/2 ML VIAL IVP PRN (19:11)
[2023-09-14] MEDS: SODIUM CHLORIDE 0.9% 1,000 ML IV SCH (19:58)
[2023-09-14] MEDS: FUROSEMIDE 40 MG TAB PO SCH (19:58)
[2023-09-14] MEDS ORDERED: EDOXABAN TOSYLATE 60 MG TABLET PO SCH (21:00)
[2023-09-14] MEDS: SACUBITRIL/VALSARTAN 24 MG-26 MG TABLET PO SCH (21:12)
[2023-09-14] MEDS: FERROUS SULFATE 325 MG TAB PO SCH (21:13)
[2023-09-14] MEDS: EDOXABAN TOSYLATE 30 MG TABLET PO SCH (21:13)
[2023-09-14] MEDS: ATORVASTATIN 40 MG TAB PO SCH (21:18)
[2023-09-14] MEDS: CHOLECALCIFEROL 25 MCG (1000 IU) TABLET PO SCH (21:18)
[2023-09-14] MEDS: METOPROLOL TARTRATE 50 MG TAB PO SCH (21:20)
[2023-09-14] MEDS: BRIMONIDINE TARTRATE 0.2% DROPS 5 ML BTL BOTH EYES SCH (21:22)
[2023-09-14] MEDS: DEXTROSE 5% IVPB SCH (21:24)
[2023-09-14] MEDS: WATER IVPB SCH (21:24)
[2023-09-14] MEDS: SULFAMETHOX TMP IVPB SCH (21:24)
[2023-09-15 04:35] LABS: Glucose,Whole Blood 124 mg/dL (70-110)
[2023-09-15 06:43] LABS: Glucose,Whole Blood 140 mg/dL (70-110)
[2023-09-15] MEDS ORDERED: DEXTROSE 50% SYRINGE 50 ML IVP PRN ×2 (08:52)
[2023-09-15 09:46] LABS: BUN/Creat Ratio 22.93 Ratio (12.00-20.00); Blood Urea Nitrogen 34.4 mg/dL (9.0-27.0); Calcium 8.8 mg/dL (8.7-10.3); Carbon Dioxide 19.6 mmol/L (21.6-31.8); Chloride 106 mmol/L (96-109); Glucose 151 mg/dL (70-110); Potassium 4.7 mmol/L (3.5-5.5); Sodium 139 mmol/L (135-145)
[2023-09-15] MEDS: allopurinoL 100 MG TAB PO SCH (10:57)
[2023-09-15] MEDS: DAPAGLIFLOZIN PROPANEDIOL 10 MG TABLET PO SCH (10:57)
[2023-09-15 11:10] LABS: Glucose,Whole Blood 158 mg/dL (70-110)
--- NOTE | 2023-09-15 11:38 | P.OBCN ---
History of Present Illness Consult date: 09/15/23 Reason for consult: other (rule out vaginal bleeding) Chief complaint: Shortness of breath, bleeding of unknown origin History of present illness: Ms. Mendoza is a 73 year old with a past medical history significant for Congestive Heart Failure, Diabetes Mellitus, Atrial Fibrillation, Stage 3 Chronic Kidney Disease, and blood-thinner use who presented to the ER with shortness of breath and was found to have bleeding of unknown origin. OBGYN was consulted to rule out post-menopausal uterine or vaginal bleeding. The patient does have a history of "complete" hysterectomy at age 25 after she delivered her last child. She is unsure if she still has her ovaries. She has never had any episodes of vaginal bleeding since this time. The patient states since admission to the floor, the bleeding has picked up and she did fill a toilet bowl with bright red blood as well as saturate several pads/depends. The patient does complain of some recent right upper quadrant and flank pain. She denies dysuria and urinary frequency. On admission, the patient's CBC was within normal limits. Urinalysis appeared suspicious for urinary tract infection. OBGYN history: 3 full-term vaginal deliveries, menopause at age 25 after hysterectomy. Denies any HRT. Denies every experiencing vasomotor symptoms. Past surgical history: Cardiac Ablation, Heart Catheterization, Heart Catheterization With Stent, Hysterectomy (uncertain if ovaries remain), Pacemaker, Tubal Ligation Social history: Denies smoking, alcohol use, or recreational drug use. Past Medical History Past Medical History: Atrial Fibrillation, Heart Failure, Diabetes Mellitus, Eye Disorder, Hyperlipidemia, Osteoarthritis (OA), Pneumonia, Skin Disorder, Vascular Disorder Additional Past Medical History / Comment(s): Chronic Venous Stasis BLE w/ chronic ulceration of the left lower extremity, current small area still left leg, CAD W/ coronary stenting Rt PDA 2013. History of kidney stones. Pacemaker (Brand:ST DAPHNE). HAS CATARACT LT. WOUNDS LLE, USING SILVADENE CREAM. EDEMA BLE. seeing Dr Calderon r/t kidney function. Small wound LLE. History of Any Multi-Drug Resistant Organisms: None Reported Past Surgical History: Cardiac Ablation, Heart Catheterization, Heart Catheterization With Stent, Hysterectomy, Pacemaker, Tubal Ligation Additional Past Surgical History / Comment(s): states has had mult sx on veins left leg, [place] with cardioversion, varicose vein stripping, one cardiac stent, rt cataract, kidney stone sx, LLE surgery with stent and skin grafting. ANEMIA- BLOOD TRANSFUSIONS. Past Anesthesia/Blood Transfusion Reactions: No Reported Reaction Additional Past Anesthesia/Blood Transfusion Reaction / Comm: PONV 40 PLUS YEARS AGO, AFTER REMOVAL KIDNEY STONE. Date of Last Stent Placement:: November 2013 Type of Cardiac Device: Permanent Pacemaker Device Placement Date:: 10/30/2017 Past Psychological History: No Psychological Hx Reported Additional Psychological History / Comment(s): Pt's spouse had covid end of summer 2019 and d/t covid 05/22/20. Pt now lives alone. She drives. Smoking Status: Never smoker Past Alcohol Use History: None Reported Additional Past Alcohol Use History / Comment(s): Patient is a lifelong nonsmoker. She denies any medical marijuana, marijuana, street drug or alcohol use. Past Drug Use History: None Reported - Past Family History Father History Unknown: Yes Family Medical History: No Reported History Additional Family Medical History / Comment(s): Aneurysm, passed in 2000. Mother Family Medical History: Cancer Additional Family Medical History / Comment(s): Bladder and has since passed. Medications and Allergies Home Medications Medication Instructions Recorded Confirmed Type Atorvastatin [Lipitor] 40 mg PO HS 10/22/17 09/14/23 History metFORMIN HCL [Glucophage] 850 mg PO TID 10/30/17 09/14/23 History Insulin Glargine,Hum.rec.anlog 10 units SQ HS 12/16/17 09/14/23 History [Toujeo Solostar] Furosemide [Lasix] 40 mg PO BID 06/04/18 09/14/23 History Ferrous Sulfate [Iron (65 MG 325 mg PO BID 01/19/19 09/14/23 History Elemental)] allopurinoL [Zyloprim] 100 mg PO DAILY 03/25/19 09/14/23 History calcitrioL 0.25 mcg PO Q48H 03/25/19 09/14/23 History Sacubitril/Valsartan [Entresto 24 1 tab PO BID 04/13/19 09/14/23 History mg-26 mg Tablet] Cholecalciferol [Vitamin D3 (25 25 mcg PO HS 10/02/20 09/14/23 History Mcg = 1000 Iu)] Edoxaban Tosylate [Savaysa] 60 mg PO HS 01/30/21 09/14/23 History Metoprolol Tartrate [Lopressor] 50 mg PO BID 01/30/21 09/14/23 History Brimonidine Tartrate [Alphagan P 1 drop BOTH EYES BID 09/14/23 09/14/23 History 0.2% Ophth Soln] Dapagliflozin Propanediol [Farxiga] 10 mg PO DAILY 09/14/23 09/14/23 History Allergies Allergy/AdvReac Type Severity Reaction Status Date / Time Iodinated Contrast Media Allergy Severe THROAT Verified 09/14/23 14:17 [Iodinated Contrast Media - SWELLING Oral and] iodine Allergy Severe THROAT Verified 09/14/23 14:17 SWELLING, RASH shellfish derived Allergy Severe THROAT Verified 09/14/23 14:17 SWELLING, RASH cefazolin sodium Allergy Dyspnea Verified 09/14/23 14:17 [From Kefzol] Latex, Natural Rubber Allergy Rash/Hives Verified 09/14/23 14:17 levofloxacin [From Levaquin] Allergy Rash/Hives Verified 09/14/23 14:17 piperacillin sodium Allergy THROAT Verified 09/14/23 14:17 [From Zosyn] SWELL, RASH tazobactam sodium Allergy THROAT Verified 09/14/23 14:17 [From Zosyn] SWELL, RASH verapamil AdvReac Severe Hallucinati Verified 09/14/23 14:17 ons seafood Allergy Severe throat Uncoded 01/30/21 13:35 swelling Exam Vital Signs Temp Pulse Pulse Resp BP BP Pulse Ox 09/15/23 07:51 98.8 F 60 16 145/67 99 09/15/23 00:34 98.0 F 60 15 110/69 97 09/14/23 22:06 97.9 F 60 17 137/76 97 09/14/23 21:27 63 18 119/59 99 09/14/23 21:11 63 18 119/59 96 09/14/23 19:34 97.6 F 66 18 126/77 98 09/14/23 15:30 60 17 124/53 100 09/14/23 15:00 60 16 127/60 98 09/14/23 14:30 60 16 126/59 98 09/14/23 14:00 60 16 121/57 09/14/23 12:34 98.3 F 60 20 136/80 98 Intake and Output 09/14/23 09/15/23 09/15/23 22:59 06:59 14:59 Intake Total 540 Balance 540 Intake: Oral 540 Other: Voiding Method Bedside Commode # Voids 4 Weight 99.79 kg Focused physical exam is performed. This is a pleasant female in no apparent distress. Breathing is non-labored. Abdomen is soft and non-tender. On pelvic exam, normal external female genitalia are noted. There are multiple blue nevi present bilaterally on the vulva. No blood is visualized near the urethra. Sterile speculum exam reveals a vaginal cuff without cervix. There is no blood in the vaginal vault. Unable to appreciate presence or absence of ovaries on bimanual exam secondary to body habitus. Results Result Diagrams: 09/14/23 12:57 09/15/23 05:02 Abnormal Lab Results - Last 24 Hours (Table) 09/14/23 09/14/23 09/14/23 Range/Units 12:57 12:57 14:47 RDW 15.6 H (11.5-15.5) % Potassium 5.2 H (3.5-5.1) mmol/L Chloride 113 H (98-107) mmol/L Carbon Dioxide 18 L (22-30) mmol/L Anion Gap (4.00-12.00) mmol/L BUN 34 H (7-17) mg/dL Creatinine 1.37 H (0.52-1.04) mg/dL Est GFR (CKD-EPI) (>=60) BUN/Creatinine Ratio (12.00-20.00) Ratio Glucose 112 H (74-99) mg/dL POC Glucose (mg/dL) (70-110) mg/dL Total Protein 6.2 L (6.3-8.2) g/dL Urine Appearance Cloudy H (Clear) Urine Protein Trace H (Negative) Urine Glucose (UA) 4+ H (Negative) Urine Blood Moderate H (Negative) Urine Nitrite Positive H (Negative) Ur Leukocyte Esterase Large H (Negative) Urine WBC 37 H (0-5) /hpf Urine WBC Clumps Few H (None) /hpf Urine Bacteria Many H (None) /hpf Urine Mucus Rare H (None) /hpf 09/15/23 09/15/23 09/15/23 Range/Units 04:33 05:02 06:42 RDW (11.5-15.5) % Potassium (3.5-5.1) mmol/L Chloride (98-107) mmol/L Carbon Dioxide 19.6 L (22-30) mmol/L Anion Gap 13.40 H (4.00-12.00) mmol/L BUN 34.4 H (7-17) mg/dL Creatinine (0.52-1.04) mg/dL Est GFR (CKD-EPI) 37 L (>=60) BUN/Creatinine Ratio 22.93 H (12.00-20.00) Ratio Glucose 151 H (74-99) mg/dL POC Glucose (mg/dL) 124 H 140 H (70-110) mg/dL Total Protein (6.3-8.2) g/dL Urine Appearance (Clear) Urine Protein (Negative) Urine Glucose (UA) (Negative) Urine Blood (Negative) Urine Nitrite (Negative) Ur Leukocyte Esterase (Negative) Urine WBC (0-5) /hpf Urine WBC Clumps (None) /hpf Urine Bacteria (None) /hpf Urine Mucus (None) /hpf 09/15/23 Range/Units 11:09 RDW (11.5-15.5) % Potassium (3.5-5.1) mmol/L Chloride (98-107) mmol/L Carbon Dioxide (22-30) mmol/L Anion Gap (4.00-12.00) mmol/L BUN (7-17) mg/dL Creatinine (0.52-1.04) mg/dL Est GFR (CKD-EPI) (>=60) BUN/Creatinine Ratio (12.00-20.00) Ratio Glucose (74-99) mg/dL POC Glucose (mg/dL) 158 H (70-110) mg/dL Total Protein (6.3-8.2) g/dL Urine Appearance (Clear) Urine Protein (Negative) Urine Glucose (UA) (Negative) Urine Blood (Negative) Urine Nitrite (Negative) Ur Leukocyte Esterase (Negative) Urine WBC (0-5) /hpf Urine WBC Clumps (None) /hpf Urine Bacteria (None) /hpf Urine Mucus (None) /hpf Assessment and Plan Assessment: 73 year old s/p hysterectomy with bleeding of unknown origin Plan: Bleeding is not felt to be vaginal in origin. There is no evidence of blood within the vaginal vault on speculum exam and the patient is status post hysterectomy many years ago. Will obtain pelvic US while admitted to determine if ovaries are still present. Will continue to follow peripherally. Please perfect serve for any concerns or questions. Thank you for this consult. Time with Patient: Greater than 30 (45 minutes)
--- NOTE | 2023-09-15 12:11 | US ---
EXAMINATION TYPE: US pelvic complete DATE OF EXAM: 09/15/2023 Exam done portable COMPARISON: CT 2018 CLINICAL INDICATION: Female, 73 years old with history of vaginal bleeding; Hysterectomy 40+ years ag o - patient unsure if ovaries were removed TECHNIQUE: Transabdominal sonographic images of the pelvis were acquired. Date of LMP: 40+ years ago 1. Uterus: surgically absent 2. Endometrium: surgically absent 3. Right Ovary: not seen - ? surgically absent 4. Left Ovary: not seen - ? surgically absent 5. Bilateral Adnexa: wnl 6. Posterior cul-de-sac: wnl IMPRESSION: Hysterectomy and bilateral apparent oophorectomy. Ovaries not visualized. No significant abnormality seen within the pelvis. No free fluid
--- NOTE | 2023-09-15 12:31 | P.CRDCN ---
History of Present Illness Consult date: 09/15/23 History of present illness: History of Present Illness: The patient is a 73-year-old female with known history of CAD, chronic permanent atrial fibrillation status post AV marck ablation and permanent pacemaker implantation who presented with progressive dyspnea for the last 2 days. She did not note any change in her peripheral edema, no PND or orthopnea. She had no chest discomfort, dizziness or palpitations. She has been anticoagulated. She has a history of cardiomyopathy. She had an episode of bleeding of unclear source, hematuria or vaginal. She was evaluated by [employer] who felt that there is not vaginal in origin. She continues to be in atrial fibrillation with 100% pacing. She has mild chronic edema unchanged. She has a history of chronic kidney disease that has been stable. She underwent cardiac catheterization in 2019 that revealed calcified coronary arteries with mild to moderate disease in the LAD and right coronary artery and no evidence of restenosis of the stented RCA. She has evidence of pulmonary hypertension and tricuspid regurgitation in the past. On presentation her NT proBNP was mildly elevated. Medications: Lipitor 40 mg daily, vitamin D, Farxiga, iron, Lasix 40 mg twice a day, insulin, metoprolol 50 mg twice a day, Entresto 2426 twice a day, metformin, Savaysa Review of Systems: Respiratory: She had the dyspnea on exertion but no recent cough or wheezing GI: No nausea or vomiting . No history of peptic ulcer disease. No recent GI bleed. : She had the bleeding but no dysuria Nervous System: No stroke or seizure. Physical Examination: 73-year-old female, alert oriented no apparent distress,Blood pressure 120/70, Heart rate 60 Head: Normocephalic. Eyes: Sclerae nonicteric. Neck: Good carotid upstroke, no bruit, no jugular venous distention. Lungs: Clear to auscultation. Heart: Regular rate and rhythm, S1-S2, no S3, no rub. Systolic ejection murmur 2/6. Abdomen: Soft nontender, positive bowel sounds no organomegaly. Extremities: Trace edema with chronic skin changes, intact distal pulses. Labs: BUN 34 creatinine 1.37, troponin less than 0.018, NT proBNP 8510, hemoglobin 11.4, BUN 6.1. Potassium 4.7. Chest x-ray with no significant infiltrate EKG: Atrial fibrillation with 100% ventricular pacing Impression: 1. Symptoms of dyspnea with possible mild CHF, on examination she has no significant worsening peripheral edema. She has a known history of cardiomyopathy 2. Hematuria, workup in progress 3. History of CAD, stable 4. Permanent atrial fibrillation status post AV marck ablation and permanent pacemaker implantation 5. Chronic kidney disease Plan: 1. IV diuretics for 24 hours then resume oral 2. Obtain an echocardiogram with Doppler 3. Follow renal functions 4. Continue beta-sergey, Entresto and Farxiga 5. Depending on her progress further recommendations will be made, thank you for this consult we will follow with you. Past Medical History Past Medical History: Atrial Fibrillation, Heart Failure, Diabetes Mellitus, Eye Disorder, Hyperlipidemia, Osteoarthritis (OA), Pneumonia, Skin Disorder, Vascular Disorder Additional Past Medical History / Comment(s): Chronic Venous Stasis BLE w/ chronic ulceration of the left lower extremity, current small area still left leg, CAD W/ coronary stenting Rt PDA 2013. History of kidney stones. Pacemaker (Brand:ST DAPHNE). HAS CATARACT LT. WOUNDS LLE, USING SILVADENE CREAM. EDEMA BLE. seeing Dr Calderon r/t kidney function. Small wound LLE. History of Any Multi-Drug Resistant Organisms: None Reported Past Surgical History: Cardiac Ablation, Heart Catheterization, Heart Catheterization With Stent, Hysterectomy, Pacemaker, Tubal Ligation Additional Past Surgical History / Comment(s): states has had mult sx on veins left leg, [place] with cardioversion, varicose vein stripping, one cardiac stent, rt cataract, kidney stone sx, LLE surgery with stent and skin grafting. ANEMIA- BLOOD TRANSFUSIONS. Past Anesthesia/Blood Transfusion Reactions: No Reported Reaction Additional Past Anesthesia/Blood Transfusion Reaction / Comment(s): PONV 40 PLUS YEARS AGO, AFTER REMOVAL KIDNEY STONE. Date of Last Stent Placement:: November 2013 Type of Cardiac Device: Permanent Pacemaker Device Placement Date:: 10/30/2017 Past Psychological History: No Psychological Hx Reported Additional Psychological History / Comment(s): Pt's spouse had covid end of summer 2019 and d/t covid 05/22/20. Pt now lives alone. She drives. Smoking Status: Never smoker Past Alcohol Use History: None Reported Additional Past Alcohol Use History / Comment(s): Patient is a lifelong nonsmoker. She denies any medical marijuana, marijuana, street drug or alcohol use. Past Drug Use History: None Reported - Past Family History Father History Unknown: Yes Family Medical History: No Reported History Additional Family Medical History / Comment(s): Aneurysm, passed in 2000. Mother Family Medical History: Cancer Additional Family Medical History / Comment(s): Bladder and has since passed. Medications and Allergies Home Medications Medication Instructions Recorded Confirmed Type Atorvastatin [Lipitor] 40 mg PO HS 10/22/17 09/14/23 History metFORMIN HCL [Glucophage] 850 mg PO TID 10/30/17 09/14/23 History Insulin Glargine,Hum.rec.anlog 10 units SQ HS 12/16/17 09/14/23 History [Toujeo Solostar] Furosemide [Lasix] 40 mg PO BID 06/04/18 09/14/23 History Ferrous Sulfate [Iron (65 MG 325 mg PO BID 01/19/19 09/14/23 History Elemental)] allopurinoL [Zyloprim] 100 mg PO DAILY 03/25/19 09/14/23 History calcitrioL 0.25 mcg PO Q48H 03/25/19 09/14/23 History Sacubitril/Valsartan [Entresto 24 1 tab PO BID 04/13/19 09/14/23 History mg-26 mg Tablet] Cholecalciferol [Vitamin D3 (25 25 mcg PO HS 10/02/20 09/14/23 History Mcg = 1000 Iu)] Edoxaban Tosylate [Savaysa] 60 mg PO HS 01/30/21 09/14/23 History Metoprolol Tartrate [Lopressor] 50 mg PO BID 01/30/21 09/14/23 History Brimonidine Tartrate [Alphagan P 1 drop BOTH EYES BID 09/14/23 09/14/23 History 0.2% Ophth Soln] Dapagliflozin Propanediol [Farxiga] 10 mg PO DAILY 09/14/23 09/14/23 History Allergies Allergy/AdvReac Type Severity Reaction Status Date / Time Iodinated Contrast Media Allergy Severe THROAT Verified 09/14/23 14:17 [Iodinated Contrast Media - SWELLING Oral and] iodine Allergy Severe THROAT Verified 09/14/23 14:17 SWELLING, RASH shellfish derived Allergy Severe THROAT Verified 09/14/23 14:17 SWELLING, RASH cefazolin sodium Allergy Dyspnea Verified 09/14/23 14:17 [From Kefzol] Latex, Natural Rubber Allergy Rash/Hives Verified 09/14/23 14:17 levofloxacin [From Levaquin] Allergy Rash/Hives Verified 09/14/23 14:17 piperacillin sodium Allergy THROAT Verified 09/14/23 14:17 [From Zosyn] SWELL, RASH tazobactam sodium Allergy THROAT Verified 09/14/23 14:17 [From Zosyn] SWELL, RASH verapamil AdvReac Severe Hallucinati Verified 09/14/23 14:17 ons seafood Allergy Severe throat Uncoded 01/30/21 13:35 swelling Physical Exam Vitals: Vital Signs Temp Pulse Pulse Resp BP BP Pulse Ox 09/15/23 07:51 98.8 F 60 16 145/67 99 09/15/23 00:34 98.0 F 60 15 110/69 97 09/14/23 22:06 97.9 F 60 17 137/76 97 09/14/23 21:27 63 18 119/59 99 09/14/23 21:11 63 18 119/59 96 09/14/23 19:34 97.6 F 66 18 126/77 98 09/14/23 15:30 60 17 124/53 100 09/14/23 15:00 60 16 127/60 98 09/14/23 14:30 60 16 126/59 98 09/14/23 14:00 60 16 121/57 09/14/23 12:34 98.3 F 60 20 136/80 98 Intake and Output 09/14/23 09/15/23 09/15/23 22:59 06:59 14:59 Intake Total 540 Balance 540 Intake: Oral 540 Other: Voiding Method Bedside Commode Toilet Bedside Commode # Voids 4 Weight 99.79 kg Results 09/14/23 12:57 09/15/23 05:02 Cardiac Enzymes 09/14/23 09/14/23 Range/Units 12:57 12:57 AST 28 (14-36) U/L Troponin I 0.018 (0.000-0.034) ng/mL CBC 09/14/23 Range/Units 12:57 WBC 6.1 (3.8-10.6) k/uL RBC 3.80 (3.80-5.40) m/uL Hgb 11.4 (11.4-16.0) gm/dL Hct 36.6 (34.0-46.0) % Plt Count 248 (150-450) k/uL Comprehensive Metabolic Panel 09/14/23 09/15/23 Range/Units 12:57 05:02 Sodium 142 139 (137-145) mmol/L Potassium 5.2 H 4.7 (3.5-5.1) mmol/L Chloride 113 H 106 (98-107) mmol/L Carbon Dioxide 18 L 19.6 L (22-30) mmol/L BUN 34 H 34.4 H (7-17) mg/dL Creatinine 1.37 H 1.5 (0.52-1.04) mg/dL Glucose 112 H 151 H (74-99) mg/dL Calcium 8.7 8.8 (8.4-10.2) mg/dL AST 28 (14-36) U/L ALT 26 (4-34) U/L Alkaline Phosphatase 65 (38-126) U/L Total Protein 6.2 L (6.3-8.2) g/dL Albumin 3.6 (3.5-5.0) g/dL Current Medications Generic Name Dose Route Start Last Admin Trade Name Freq PRN Reason Stop Dose Admin Acetaminophen 650 mg 09/14/23 19:10 Acetaminophen Tab 325 Mg Tab PO Q6HR PRN Fever and/ or Mild Pain Allopurinol 100 mg 09/15/23 09:00 09/15/23 10:57 Allopurinol 100 Mg Tab PO 100 mg DAILY LAKEISHA Administration Atorvastatin Calcium 40 mg 09/14/23 21:00 09/14/23 21:18 Atorvastatin 40 Mg Tab PO 40 mg HS LAKEISHA Administration Brimonidine Tartrate 1 drops 09/14/23 21:00 09/15/23 10:57 Brimonidine Tartrate 0.2% Drops 5 Ml Btl BOTH EYES 1 drops BID LAKEISHA Administration Calcitriol 0.25 mcg 09/16/23 09:00 Calcitriol 0.25 Mcg Cap PO Q48H LAKEISHA Cholecalciferol 25 mcg 09/14/23 21:00 09/14/23 21:18 Cholecalciferol 25 Mcg (1000 Iu) Tablet PO 25 mcg HS LAKEISHA Administration Dapagliflozin 10 mg 09/15/23 09:00 09/15/23 10:57 Dapagliflozin Propanediol 10 Mg Tablet PO 10 mg DAILY LAKEISHA Administration Dextrose/Water 25 ml 09/15/23 08:52 Dextrose 50% Syringe 50 Ml IVP PER PROTOCOL PRN Hypoglycemia Protocol Dextrose/Water 50 ml 09/15/23 08:52 Dextrose 50% Syringe 50 Ml IVP PER PROTOCOL PRN Hypoglycemia Protocol Edoxaban 30 mg 09/14/23 21:00 09/14/23 21:22 Edoxaban Tosylate 30 Mg Tablet PO 30 mg HS LA[facility]ISHA Administration Protocol Ferrous Sulfate 325 mg 09/14/23 21:00 09/14/23 21:15 Ferrous Sulfate 325 Mg Tab PO 325 mg BID LA[facility]ISHA Administration Furosemide 40 mg 09/14/23 19:00 09/15/23 10:57 Furosemide 40 Mg Tab PO 40 mg 0900,1700 LA[facility]ISHA Administration Trimethoprim/Sulfamethoxazole 530 mls @ 353.333 mls/hr 09/14/23 21:00 09/15/23 10:58 480 mg/ Dextrose/Water IVPB 353.333 mls/hr Q12HR LA[facility]ISHA Administration Protocol Sodium Chloride 1,000 mls @ 20 mls/hr 09/14/23 17:45 09/14/23 19:58 Saline 0.9% IV 20 mls/hr .Q24H [facility]ISHA Administration Insulin Aspart 0 unit 09/15/23 12:30 Insulin Aspart (Novolog) 100 Unit/Ml Vial SQ [facility] Protocol Metoprolol Tartrate 50 mg 09/14/23 21:00 09/15/23 10:57 Metoprolol Tartrate 50 Mg Tab PO 50 mg BID LA[facility]ISHA Administration Naloxone HCl 0.2 mg 09/14/23 17:37 Naloxone 0.4 Mg/Ml 1 Ml Vial IV Q2M PRN Opioid Reversal Ondansetron HCl 4 mg 09/14/23 19:11 Ondansetron 4 Mg/2 Ml Vial IVP Q6HR PRN Nausea And Vomiting Sacubitril/Valsartan 1 each 09/14/23 21:00 09/15/23 10:57 Sacubitril/Valsartan 24 Mg-26 Mg Tablet PO 1 each BID LA[facility]ISHA Administration Intake and Output 09/14/23 09/15/23 09/15/23 22:59 06:59 14:59 Intake Total 540 Balance 540 Intake: Oral 540 Other: Voiding Method Bedside Commode Toilet Bedside Commode # Voids 4 Weight 99.79 kg 09/14/23 12:57 09/15/23 05:02
--- NOTE | 2023-09-15 13:00 | P.HPIM ---
History of Present Illness H&P Date: 09/15/23 Chief Complaint: Urinary tract infection, vaginal bleed * 73-year-old patient with past medical history of coronary artery disease PCI to PDA 2013, RCA and LAD 2019 ischemic cardiomyopathy, history of atrial fibrillation chronic persistent s/p pacemaker in place, diabetes mellitus, hypertension, hyperlipidemia history of pulmonary hypertension presents to the emergency department with complaints of shortness of breath, exertional dyspnea. Decreased exercise tolerance. Patient also complained of right upper quadrant and flank pain ongoing for the last 24 hours/ * Workup initiated ER included CBC which showed WBC of 6.1 hemoglobin 11.4 platelet count of 248 * Serum chemistry showed sodium of 142 potassium 5.2, BUN 34 creatinine 1.37 glucose 112 lactate of 1.3 * N-terminal proBNP 8510, troponin 0.018 * Lipase is noted to be 294, urinalysis noted to be moderate amount of blood, nitrite positive, leukocyte esterase positive, many bacteria noted * After further discussion with the patient she is unsure about * Patient started on antibiotic with consultation from cardiology infectious disease and [employer] LEADER REVIEW OF SYSTEMS: Hematuria, vaginal discharge, shortness of breath CONSTITUTIONAL: No fever, no malaise, no fatigue. HEENT: No recent visual problems or hearing problems. Denied any sore throat. CARDIOVASCULAR: No chest pain, orthopnea, PND, no palpitations, no syncope. PULMONARY: No shortness of breath, no cough, no hemoptysis. GASTROINTESTINAL: No diarrhea, no nausea, no vomiting, no abdominal pain. NEUROLOGICAL: No headaches, no weakness, no numbness. HEMATOLOGICAL: Denies any bleeding or petechiae. GENITOURINARY: Hematuria, vaginal discharge, shortness of breath MUSCULOSKELETAL/RHEUMATOLOGICAL: Denies any joint pain, swelling, or any muscle pain. ENDOCRINE: Denies any polyuria or polydipsia. PHYSICAL EXAMINATION: GENERAL: The patient is alert and oriented x3, not in any acute distress. Well developed, well nourished. HEENT: Pupils are round and equally reacting to light. EOMI. Normocephalic, atraumatic. No pharyngeal erythema. No thyromegaly. CARDIOVASCULAR: S1 and S2 present. No murmurs, rubs, or gallops. PULMONARY: Chest is clear to auscultation, no wheezing or crackles. ABDOMEN: Soft, nontender, nondistended, normoactive bowel sounds. No palpable organomegaly. MUSCULOSKELETAL: No joint swelling or deformity. EXTREMITIES: No cyanosis, clubbing, or pedal edema. NEUROLOGICAL: Gross neurological examination did not reveal any focal deficits. Assessment and plan * Acute on chronic congestive heart failure patient fraction of 45% * Urinary tract infection with hematuria * Chronic atrial fibrillation s/p pacemaker in place * Diabetes mellitus type 2 * Hypertension * Hyperkalemia * In regards to congestive heart failure patient started on Lasix, cardiology consulted * In regards to urinary tract infection multiple allergies continue patient on Bactrim follow-up on culture, recommend Castrejon catheter placed * In regards to atrial fibrillation, continue patient on metoprolol, telemonitoring edoxaban placed on hold * In regards to suspicion vaginal bleeding [employer] LEADER consulted, exam completed no evidence of vaginal bleed noted * In regards to hypokalemia, follow-up on potassium level * CODE STATUS is full code Past Medical History Past Medical History: Atrial Fibrillation, Heart Failure, Diabetes Mellitus, Eye Disorder, Hyperlipidemia, Osteoarthritis (OA), Pneumonia, Skin Disorder, Vascular Disorder Additional Past Medical History / Comment(s): Chronic Venous Stasis BLE w/ chronic ulceration of the left lower extremity, current small area still left leg, CAD W/ coronary stenting Rt PDA 2013. History of kidney stones. Pacemaker (Brand:ST DAPHNE). HAS CATARACT LT. WOUNDS LLE, USING SILVADENE CREAM. EDEMA BLE. seeing Dr Calderon r/t kidney function. Small wound LLE. History of Any Multi-Drug Resistant Organisms: None Reported Past Surgical History: Cardiac Ablation, Heart Catheterization, Heart Catheterization With Stent, Hysterectomy, Pacemaker, Tubal Ligation Additional Past Surgical History / Comment(s): states has had mult sx on veins left leg, [place] with cardioversion, varicose vein stripping, one cardiac stent, rt cataract, kidney stone sx, LLE surgery with stent and skin grafting. ANEMIA- BLOOD TRANSFUSIONS. Past Anesthesia/Blood Transfusion Reactions: No Reported Reaction Additional Past Anesthesia/Blood Transfusion Reaction / Comment(s): PONV 40 PLUS YEARS AGO, AFTER REMOVAL KIDNEY STONE. Date of Last Stent Placement:: November 2013 Type of Cardiac Device: Permanent Pacemaker Device Placement Date:: 10/30/2017 Past Psychological History: No Psychological Hx Reported Additional Psychological History / Comment(s): Pt's spouse had covid end of summer 2019 and d/t covid 05/22/20. Pt now lives alone. She drives. Smoking Status: Never smoker Past Alcohol Use History: None Reported Additional Past Alcohol Use History / Comment(s): Patient is a lifelong nonsmoker. She denies any medical marijuana, marijuana, street drug or alcohol use. Past Drug Use History: None Reported - Past Family History Father History Unknown: Yes Family Medical History: No Reported History Additional Family Medical History / Comment(s): Aneurysm, passed in 2000. Mother Family Medical History: Cancer Additional Family Medical History / Comment(s): Bladder and has since passed. Medications and Allergies Home Medications Medication Instructions Recorded Confirmed Type Atorvastatin [Lipitor] 40 mg PO HS 10/22/17 09/14/23 History metFORMIN HCL [Glucophage] 850 mg PO TID 10/30/17 09/14/23 History Insulin Glargine,Hum.rec.anlog 10 units SQ HS 12/16/17 09/14/23 History [Toujeo Solostar] Furosemide [Lasix] 40 mg PO BID 06/04/18 09/14/23 History Ferrous Sulfate [Iron (65 MG 325 mg PO BID 01/19/19 09/14/23 History Elemental)] allopurinoL [Zyloprim] 100 mg PO DAILY 03/25/19 09/14/23 History calcitrioL 0.25 mcg PO Q48H 03/25/19 09/14/23 History Sacubitril/Valsartan [Entresto 24 1 tab PO BID 04/13/19 09/14/23 History mg-26 mg Tablet] Cholecalciferol [Vitamin D3 (25 25 mcg PO HS 10/02/20 09/14/23 History Mcg = 1000 Iu)] Edoxaban Tosylate [Savaysa] 60 mg PO HS 01/30/21 09/14/23 History Metoprolol Tartrate [Lopressor] 50 mg PO BID 01/30/21 09/14/23 History Brimonidine Tartrate [Alphagan P 1 drop BOTH EYES BID 09/14/23 09/14/23 History 0.2% Ophth Soln] Dapagliflozin Propanediol [Farxiga] 10 mg PO DAILY 09/14/23 09/14/23 History Allergies Allergy/AdvReac Type Severity Reaction Status Date / Time Iodinated Contrast Media Allergy Severe THROAT Verified 09/14/23 14:17 [Iodinated Contrast Media - SWELLING Oral and] iodine Allergy Severe THROAT Verified 09/14/23 14:17 SWELLING, RASH shellfish derived Allergy Severe THROAT Verified 09/14/23 14:17 SWELLING, RASH cefazolin sodium Allergy Dyspnea Verified 09/14/23 14:17 [From Kefzol] Latex, Natural Rubber Allergy Rash/Hives Verified 09/14/23 14:17 levofloxacin [From Levaquin] Allergy Rash/Hives Verified 09/14/23 14:17 piperacillin sodium Allergy THROAT Verified 09/14/23 14:17 [From Zosyn] SWELL, RASH tazobactam sodium Allergy THROAT Verified 09/14/23 14:17 [From Zosyn] SWELL, RASH verapamil AdvReac Severe Hallucinati Verified 09/14/23 14:17 ons seafood Allergy Severe throat Uncoded 01/30/21 13:35 swelling Physical Exam Vitals: Vital Signs Temp Pulse Pulse Resp BP BP Pulse Ox 09/15/23 07:51 98.8 F 60 16 145/67 99 09/15/23 00:34 98.0 F 60 15 110/69 97 09/14/23 22:06 97.9 F 60 17 137/76 97 09/14/23 21:27 63 18 119/59 99 09/14/23 21:11 63 18 119/59 96 09/14/23 19:34 97.6 F 66 18 126/77 98 09/14/23 15:30 60 17 124/53 100 09/14/23 15:00 60 16 127/60 98 09/14/23 14:30 60 16 126/59 98 09/14/23 14:00 60 16 121/57 09/14/23 12:34 98.3 F 60 20 136/80 98 Intake and Output 09/14/23 09/15/23 09/15/23 22:59 06:59 14:59 Intake Total 540 Balance 540 Intake: Oral 540 Other: Voiding Method Bedside Commode # Voids 4 Weight 99.79 kg Results CBC & Chem 7: 09/14/23 12:57 09/15/23 05:02 Labs: Abnormal Lab Results - Last 24 Hours (Table) 09/14/23 09/14/23 09/14/23 Range/Units 12:57 12:57 14:47 RDW 15.6 H (11.5-15.5) % Potassium 5.2 H (3.5-5.1) mmol/L Chloride 113 H (98-107) mmol/L Carbon Dioxide 18 L (22-30) mmol/L BUN 34 H (7-17) mg/dL Creatinine 1.37 H (0.52-1.04) mg/dL Glucose 112 H (74-99) mg/dL POC Glucose (mg/dL) (70-110) mg/dL Total Protein 6.2 L (6.3-8.2) g/dL Urine Appearance Cloudy H (Clear) Urine Protein Trace H (Negative) Urine Glucose (UA) 4+ H (Negative) Urine Blood Moderate H (Negative) Urine Nitrite Positive H (Negative) Ur Leukocyte Esterase Large H (Negative) Urine WBC 37 H (0-5) /hpf Urine WBC Clumps Few H (None) /hpf Urine Bacteria Many H (None) /hpf Urine Mucus Rare H (None) /hpf 09/15/23 09/15/23 Range/Units 04:33 06:42 RDW (11.5-15.5) % Potassium (3.5-5.1) mmol/L Chloride (98-107) mmol/L Carbon Dioxide (22-30) mmol/L BUN (7-17) mg/dL Creatinine (0.52-1.04) mg/dL Glucose (74-99) mg/dL POC Glucose (mg/dL) 124 H 140 H (70-110) mg/dL Total Protein (6.3-8.2) g/dL Urine Appearance (Clear) Urine Protein (Negative) Urine Glucose (UA) (Negative) Urine Blood (Negative) Urine Nitrite (Negative) Ur Leukocyte Esterase (Negative) Urine WBC (0-5) /hpf Urine WBC Clumps (None) /hpf Urine Bacteria (None) /hpf Urine Mucus (None) /hpf Thrombosis Risk Factor Assmnt - Choose All That Apply Each Factor Represents 1 point: Swollen legs (current) Each Risk Factor Represents 2 Points: Age 61-74 years Thrombosis Risk Factor Assessment Total Risk Factor Score: 3 Thrombosis Risk Factor Assessment Level: Moderate Risk
[2023-09-15] MEDS: INSULIN ASPART (NovoLOG) 100 UNIT/ML VIAL SQ SCH (13:01)
[2023-09-15] MEDS: BARIUM SULFATE 2% - 450 ML ORAL.SUSP BOTTLE PO PRN (13:37)
--- NOTE | 2023-09-15 14:14 | P.GSCN ---
History of Present Illness Consult date: 09/15/23 Reason for Consult: Hematuria History of present illness: This is a 73-year-old female that presented after noticing blood per toilet she is unsure what the source. Urology is consulted to evaluate for gross hematuria. At baseline she denies any voiding dysfunction, denies any previous episodes of gross hematuria. Does have previous history of kidney stones which she has she has passed spontaneously, she denies ever requiring any intervention for kidney stone. No known family history of kidney or bladder malignancy. She was evaluated by Dr. Jean from gynecology and there was no evidence of blood per vagina, she underwent pelvic ultrasound which showed no abnormalities. She did have a Castrejon catheter placed this with return of clear urine, no signs of gross hematuria, additionally her urine analysis on presentation showed no evidence of bleeding, there was only evidence of 3 red blood cells on UA. Of note her urinalysis was concerning for UTI. Review of Systems - Constitutional Denies fever, Denies weight loss - Cardiovascular Denies chest pain, Denies shortness of breath - Respiratory Denies cough, Denies 7 - Gastrointestinal Denies abdominal pain, Denies nausea, Denies vomiting - Genitourinary Genitourinary: Denies dysuria, Denies hematuria - Neurological Denies headaches, Denies syncope Past Medical History Past Medical History: Atrial Fibrillation, Heart Failure, Diabetes Mellitus, Eye Disorder, Hyperlipidemia, Osteoarthritis (OA), Pneumonia, Skin Disorder, Vascular Disorder Additional Past Medical History / Comment(s): Chronic Venous Stasis BLE w/ chronic ulceration of the left lower extremity, current small area still left leg, CAD W/ coronary stenting Rt PDA 2013. History of kidney stones. Pacemaker (Brand:ST DAPHNE). HAS CATARACT LT. WOUNDS LLE, USING SILVADENE CREAM. EDEMA BLE. seeing Dr Calderon r/t kidney function. Small wound LLE. History of Any Multi-Drug Resistant Organisms: None Reported Past Surgical History: Cardiac Ablation, Heart Catheterization, Heart Catheterization With Stent, Hysterectomy, Pacemaker, Tubal Ligation Additional Past Surgical History / Comment(s): states has had mult sx on veins left leg, [place] with cardioversion, varicose vein stripping, one cardiac stent, rt cataract, kidney stone sx, LLE surgery with stent and skin grafting. ANEMIA- BLOOD TRANSFUSIONS. Past Anesthesia/Blood Transfusion Reactions: No Reported Reaction Additional Past Anesthesia/Blood Transfusion Reaction / Comm: PONV 40 PLUS YEARS AGO, AFTER REMOVAL KIDNEY STONE. Date of Last Stent Placement:: November 2013 Type of Cardiac Device: Permanent Pacemaker Device Placement Date:: 10/30/2017 Past Psychological History: No Psychological Hx Reported Additional Psychological History / Comment(s): Pt's spouse had covid end of summer 2019 and d/t covid 05/22/20. Pt now lives alone. She drives. Smoking Status: Never smoker Past Alcohol Use History: None Reported Additional Past Alcohol Use History / Comment(s): Patient is a lifelong nonsmoker. She denies any medical marijuana, marijuana, street drug or alcohol use. Past Drug Use History: None Reported - Past Family History Father History Unknown: Yes Family Medical History: No Reported History Additional Family Medical History / Comment(s): Aneurysm, passed in 2000. Mother Family Medical History: Cancer Additional Family Medical History / Comment(s): Bladder and has since passed. Medications and Allergies Home Medications Medication Instructions Recorded Confirmed Type Atorvastatin [Lipitor] 40 mg PO HS 10/22/17 09/14/23 History metFORMIN HCL [Glucophage] 850 mg PO TID 10/30/17 09/14/23 History Insulin Glargine,Hum.rec.anlog 10 units SQ HS 12/16/17 09/14/23 History [Toujeo Solostar] Furosemide [Lasix] 40 mg PO BID 06/04/18 09/14/23 History Ferrous Sulfate [Iron (65 MG 325 mg PO BID 01/19/19 09/14/23 History Elemental)] allopurinoL [Zyloprim] 100 mg PO DAILY 03/25/19 09/14/23 History calcitrioL 0.25 mcg PO Q48H 03/25/19 09/14/23 History Sacubitril/Valsartan [Entresto 24 1 tab PO BID 04/13/19 09/14/23 History mg-26 mg Tablet] Cholecalciferol [Vitamin D3 (25 25 mcg PO HS 10/02/20 09/14/23 History Mcg = 1000 Iu)] Edoxaban Tosylate [Savaysa] 60 mg PO HS 01/30/21 09/14/23 History Metoprolol Tartrate [Lopressor] 50 mg PO BID 01/30/21 09/14/23 History Brimonidine Tartrate [Alphagan P 1 drop BOTH EYES BID 09/14/23 09/14/23 History 0.2% Ophth Soln] Dapagliflozin Propanediol [Farxiga] 10 mg PO DAILY 09/14/23 09/14/23 History Allergies Allergy/AdvReac Type Severity Reaction Status Date / Time Iodinated Contrast Media Allergy Severe THROAT Verified 09/14/23 14:17 [Iodinated Contrast Media - SWELLING Oral and] iodine Allergy Severe THROAT Verified 09/14/23 14:17 SWELLING, RASH shellfish derived Allergy Severe THROAT Verified 09/14/23 14:17 SWELLING, RASH cefazolin sodium Allergy Dyspnea Verified 09/14/23 14:17 [From Kefzol] Latex, Natural Rubber Allergy Rash/Hives Verified 09/14/23 14:17 levofloxacin [From Levaquin] Allergy Rash/Hives Verified 09/14/23 14:17 piperacillin sodium Allergy THROAT Verified 09/14/23 14:17 [From Zosyn] SWELL, RASH tazobactam sodium Allergy THROAT Verified 09/14/23 14:17 [From Zosyn] SWELL, RASH verapamil AdvReac Severe Hallucinati Verified 09/14/23 14:17 ons seafood Allergy Severe throat Uncoded 01/30/21 13:35 swelling Surgical - Exam Vital Signs Temp Pulse Resp BP Pulse Ox 98.3 F 60 20 136/80 98 09/14/23 12:34 09/14/23 12:34 09/14/23 12:34 09/14/23 12:34 09/14/23 12:34 - General no distress, no pain - Eyes normal ocular movement, no pale - ENT normal nares, normal mucosa - Respiratory normal expansion, normal respiratory effort - Abdomen Abdomen: soft, non tender, no distended - Psychiatric oriented to time, oriented to person, oriented to place Results - Labs 09/14/23 12:57 09/15/23 05:02 Abnormal Lab Results - Last 24 Hours (Table) 09/14/23 09/15/23 09/15/23 Range/Units 14:47 04:33 05:02 Carbon Dioxide 19.6 L (21.6-31.8) mmol/L Anion Gap 13.40 H (4.00-12.00) mmol/L BUN 34.4 H (9.0-27.0) mg/dL Est GFR (CKD-EPI) 37 L (>=60) BUN/Creatinine Ratio 22.93 H (12.00-20.00) Ratio Glucose 151 H (70-110) mg/dL POC Glucose (mg/dL) 124 H (70-110) mg/dL Urine Appearance Cloudy H (Clear) Urine Protein Trace H (Negative) Urine Glucose (UA) 4+ H (Negative) Urine Blood Moderate H (Negative) Urine Nitrite Positive H (Negative) Ur Leukocyte Esterase Large H (Negative) Urine WBC 37 H (0-5) /hpf Urine WBC Clumps Few H (None) /hpf Urine Bacteria Many H (None) /hpf Urine Mucus Rare H (None) /hpf 09/15/23 09/15/23 Range/Units 06:42 11:09 Carbon Dioxide (21.6-31.8) mmol/L Anion Gap (4.00-12.00) mmol/L BUN (9.0-27.0) mg/dL Est GFR (CKD-EPI) (>=60) BUN/Creatinine Ratio (12.00-20.00) Ratio Glucose (70-110) mg/dL POC Glucose (mg/dL) 140 H 158 H (70-110) mg/dL Urine Appearance (Clear) Urine Protein (Negative) Urine Glucose (UA) (Negative) Urine Blood (Negative) Urine Nitrite (Negative) Ur Leukocyte Esterase (Negative) Urine WBC (0-5) /hpf Urine WBC Clumps (None) /hpf Urine Bacteria (None) /hpf Urine Mucus (None) /hpf Diabetes panel 09/15/23 Range/Units 05:02 Sodium 139 (135-145) mmol/L Potassium 4.7 (3.5-5.5) mmol/L Chloride 106 (96-109) mmol/L Carbon Dioxide 19.6 L (21.6-31.8) mmol/L BUN 34.4 H (9.0-27.0) mg/dL Creatinine 1.5 (0.6-1.5) mg/dL Glucose 151 H (70-110) mg/dL Calcium 8.8 (8.7-10.3) mg/dL Calcium panel 09/15/23 Range/Units 05:02 Calcium 8.8 (8.7-10.3) mg/dL Pituitary panel 09/15/23 Range/Units 05:02 Sodium 139 (135-145) mmol/L Potassium 4.7 (3.5-5.5) mmol/L Chloride 106 (96-109) mmol/L Carbon Dioxide 19.6 L (21.6-31.8) mmol/L BUN 34.4 H (9.0-27.0) mg/dL Creatinine 1.5 (0.6-1.5) mg/dL Glucose 151 H (70-110) mg/dL Calcium 8.8 (8.7-10.3) mg/dL Adrenal panel 09/15/23 Range/Units 05:02 Sodium 139 (135-145) mmol/L Potassium 4.7 (3.5-5.5) mmol/L Chloride 106 (96-109) mmol/L Carbon Dioxide 19.6 L (21.6-31.8) mmol/L BUN 34.4 H (9.0-27.0) mg/dL Creatinine 1.5 (0.6-1.5) mg/dL Glucose 151 H (70-110) mg/dL Calcium 8.8 (8.7-10.3) mg/dL Assessment and Plan Assessment: 73-year-old female with evidence of blood per toilet, unsure the source. She was evaluated by the gynecology and no evidence of vaginal bleeding. Her urine was completely clear with catheter placement no evidence of blood. Additionally her urinalysis was only significant for 3 red blood cells per high-power field was not enough to cause gross hematuria. No evidence of bleeding from kidney or bladder at this time, as her cath sample was completely clear on evaluation this morning. If bleeding was coming from the bladder then I would anticipate there is some residual blood seen with catheter placement. Given then evidence of negative workup from gynecology and urology I would consider potentially rectal bleeding as the source at this time from urology standpoint no further evalu ation is needed given the clear urine and minimal amount of urine in the bladder Castrejon catheter can be removed
[2023-09-15 15:28] LABS: Glucose,Whole Blood 107 mg/dL (70-110)
[2023-09-15 16:26] LABS: Glucose,Whole Blood 103 mg/dL (70-110)
[2023-09-15 18:27] LABS: HCT 37.3 % (34.0-46.0); HGB 11.5 gm/dL (11.4-16.0); Hypochromasia Slight; MCH 29.8 pg (25.0-35.0); MCHC 30.9 g/dL (31.0-37.0); MCV 96.3 fL (80.0-100.0); Mean Platelet Volume 8.8; Platelet Count 214 k/uL (150-450); RBC 3.87 m/uL (3.80-5.40); RDW 15.5 % (11.5-15.5); WBC 7.3 k/uL (3.8-10.6)
[2023-09-15 19:48] LABS: HCT 34.6 % (34.0-46.0); HGB 10.8 gm/dL (11.4-16.0); MCH 29.3 pg (25.0-35.0); MCHC 31.2 g/dL (31.0-37.0); MCV 94.1 fL (80.0-100.0); Mean Platelet Volume 8.5; Platelet Count 222 k/uL (150-450); RBC 3.68 m/uL (3.80-5.40); RDW 15.6 % (11.5-15.5); WBC 6.8 k/uL (3.8-10.6)
--- NOTE | 2023-09-15 20:44 | CT ---
EXAMINATION TYPE: CT abdomen pelvis wo con CT DLP: 1232.50 mGycm, Automated exposure control for dose reduction was used. DATE OF EXAM: 09/15/2023 6:05 PM COMPARISON: CT abdomen pelvis most recent from CLINICAL INDICATION:Female, 73 years old with history of Evaluate for pelvic mass; Evaluate for pelvi c mass TECHNIQUE: Axial CT of the abdomen and pelvis. Sagittal and coronal reformats were created on a [employer] workstation. Contrast used: (none if empty) Oral contrast used: with Oral Contrast (none if empty) FINDINGS: LOWER CHEST: Unremarkable ABDOMEN LIVER: Unremarkable GALLBLADDER AND BILE DUCTS: Unremarkable. PANCREAS: Unremarkable. SPLEEN: Unremarkable. ADRENAL GLANDS: Right adrenal adenoma. KIDNEYS AND URETERS: No evidence of hydronephrosis or obstructing renal calculus. The ureters are unr emarkable. PELVIS BLADDER: Unremarkable REPRODUCTIVE: Unremarkable. ABDOMEN & PELVIS STOMACH AND BOWEL: Stomach and duodenum are unremarkable. Scattered diverticula are noted throughout the colon. No evidence of bowel obstruction. PERITONEUM/RETROPERITONEUM: No evidence of pneumoperitoneum or free fluid. VASCULATURE: Moderate atherosclerotic calcifications are present throughout the abdominal aorta and i ts branches. No evidence of aortic aneurysm. Left common iliac arterial stent. MUSCULOSKELETAL: No acute osseous abnormalities. Moderate disc degeneration changes are present throu ghout the thoracolumbar spine. LYMPH NODES: No gross evidence for lymphadenopathy. SOFT TISSUE/ABDOMINAL WALL: Unremarkable IMPRESSION: No evidence of acute process or intra-abdominal/pelvic mass.
[2023-09-15 20:47] LABS: Glucose,Whole Blood 139 mg/dL (70-110)
[2023-09-15] MEDS: AZTREONAM 1 GM in SODIUM CHLORIDE 0.9% 50 ML IVPB SCH (21:29)
[2023-09-15] MEDS: FUROSEMIDE 10 MG/ML 4 ML VIAL IV SCH (21:30)
--- NOTE | 2023-09-15 23:08 | P.CONS ---
History of Present Illness - Reason for Consult Consult date: 09/15/23 - History of Present Illness Patient is a 73-year-old female with a past medical history significant for atrial fibrillation hyperlipidemia diabetes mellitus heart failure with patient has been brought to the hospital yesterday afternoon for evaluation of increasing shortness of breath on exertion increasing fatigue and also patient was noticed to have blood in her toilet he was not clear if it is a urinary or vaginal in origin did have a history of UTIs but has not had any symptoms related to that patient on presentation to the hospital was afebrile and no fever has been recorded subsequently patient was not tachycardic hypotensive or hypoxic did have a white count of 6.1 BUN/creatinine has been elevated liver enzymes are normal amylase lipase was normal did have a positive UA stool for occult blood was negative patient did have a KUB x-ray nonspecific abdomen chest x-ray no acute pulmonary process mild cardiomegaly did have a pelvic ultrasound hysterectomy bilateral oophorectomy no significant abnormality seen within the pelvis no free fluid patient was started on IV Bactrim concerning for UTI infectious he was consulted for further management of antibiotic therapy as the patient to have multiple antibiotic allergies however she was not very clear about the type of reaction she has been Zosyn antibiotics Past Medical History Past Medical History: Atrial Fibrillation, Heart Failure, Diabetes Mellitus, Eye Disorder, Hyperlipidemia, Osteoarthritis (OA), Pneumonia, Skin Disorder, Vascular Disorder Additional Past Medical History / Comment(s): Chronic Venous Stasis BLE w/ chronic ulceration of the left lower extremity, current small area still left leg, CAD W/ coronary stenting Rt PDA 2013. History of kidney stones. Pacemaker (Brand:ST DAPHNE). HAS CATARACT LT. WOUNDS LLE, USING SILVADENE CREAM. EDEMA BLE. seeing Dr Calderon r/t kidney function. Small wound LLE. History of Any Multi-Drug Resistant Organisms: None Reported Past Surgical History: Cardiac Ablation, Heart Catheterization, Heart Catheterization With Stent, Hysterectomy, Pacemaker, Tubal Ligation Additional Past Surgical History / Comment(s): states has had mult sx on veins left leg, [place] with cardioversion, varicose vein stripping, one cardiac stent, rt cataract, kidney stone sx, LLE surgery with stent and skin grafting. ANEMIA- BLOOD TRANSFUSIONS. Past Anesthesia/Blood Transfusion Reactions: No Reported Reaction Additional Past Anesthesia/Blood Transfusion Reaction / Comm: PONV 40 PLUS YEARS AGO, AFTER REMOVAL KIDNEY STONE. Date of Last Stent Placement:: November 2013 Type of Cardiac Device: Permanent Pacemaker Device Placement Date:: 10/30/2017 Past Psychological History: No Psychological Hx Reported Additional Psychological History / Comment(s): Pt's spouse had covid end of summer 2019 and d/t covid 05/22/20. Pt now lives alone. She drives. Smoking Status: Never smoker Past Alcohol Use History: None Reported Additional Past Alcohol Use History / Comment(s): Patient is a lifelong nonsmoker. She denies any medical marijuana, marijuana, street drug or alcohol use. Past Drug Use History: None Reported - Past Family History Father History Unknown: Yes Family Medical History: No Reported History Additional Family Medical History / Comment(s): Aneurysm, passed in 2000. Mother Family Medical History: Cancer Additional Family Medical History / Comment(s): Bladder and has since passed. Medications and Allergies Home Medications Medication Instructions Recorded Confirmed Type Atorvastatin [Lipitor] 40 mg PO HS 10/22/17 09/14/23 History metFORMIN HCL [Glucophage] 850 mg PO TID 10/30/17 09/14/23 History Insulin Glargine,Hum.rec.anlog 10 units SQ HS 12/16/17 09/14/23 History [Toujeo Solostar] Furosemide [Lasix] 40 mg PO BID 06/04/18 09/14/23 History Ferrous Sulfate [Iron (65 MG 325 mg PO BID 01/19/19 09/14/23 History Elemental)] allopurinoL [Zyloprim] 100 mg PO DAILY 03/25/19 09/14/23 History calcitrioL 0.25 mcg PO Q48H 03/25/19 09/14/23 History Sacubitril/Valsartan [Entresto 24 1 tab PO BID 04/13/19 09/14/23 History mg-26 mg Tablet] Cholecalciferol [Vitamin D3 (25 25 mcg PO HS 10/02/20 09/14/23 History Mcg = 1000 Iu)] Edoxaban Tosylate [Savaysa] 60 mg PO HS 01/30/21 09/14/23 History Metoprolol Tartrate [Lopressor] 50 mg PO BID 01/30/21 09/14/23 History Brimonidine Tartrate [Alphagan P 1 drop BOTH EYES BID 09/14/23 09/14/23 History 0.2% Ophth Soln] Dapagliflozin Propanediol [Farxiga] 10 mg PO DAILY 09/14/23 09/14/23 History Allergies Allergy/AdvReac Type Severity Reaction Status Date / Time Iodinated Contrast Media Allergy Severe THROAT Verified 09/14/23 14:17 [Iodinated Contrast Media - SWELLING Oral and] iodine Allergy Severe THROAT Verified 09/14/23 14:17 SWELLING, RASH shellfish derived Allergy Severe THROAT Verified 09/14/23 14:17 SWELLING, RASH cefazolin sodium Allergy Dyspnea Verified 09/14/23 14:17 [From Kefzol] Latex, Natural Rubber Allergy Rash/Hives Verified 09/14/23 14:17 levofloxacin [From Levaquin] Allergy Rash/Hives Verified 09/14/23 14:17 piperacillin sodium Allergy THROAT Verified 09/14/23 14:17 [From Zosyn] SWELL, RASH tazobactam sodium Allergy THROAT Verified 09/14/23 14:17 [From Zosyn] SWELL, RASH verapamil AdvReac Severe Hallucinati Verified 09/14/23 14:17 ons seafood Allergy Severe throat Uncoded 01/30/21 13:35 swelling Physical Exam Vitals: Vital Signs Temp Pulse Pulse Resp BP BP Pulse Ox 09/15/23 14:00 98.7 F 60 15 103/66 96 09/15/23 07:51 98.8 F 60 16 145/67 99 09/15/23 00:34 98.0 F 60 15 110/69 97 09/14/23 22:06 97.9 F 60 17 137/76 97 09/14/23 21:27 63 18 119/59 99 09/14/23 21:11 63 18 119/59 96 09/14/23 19:34 97.6 F 66 18 126/77 98 09/14/23 15:30 60 17 124/53 100 Intake and Output 09/15/23 09/15/23 09/15/23 06:59 14:59 22:59 Other: Voiding Method Bedside Commode Toilet Bedside Commode # Voids 4 Results CBC & Chem 7: 09/15/23 19:00 09/15/23 05:02 Labs: Abnormal Lab Results - Last 24 Hours (Table) 09/15/23 09/15/23 09/15/23 Range/Units 04:33 05:02 06:42 Carbon Dioxide 19.6 L (21.6-31.8) mmol/L Anion Gap 13.40 H (4.00-12.00) mmol/L BUN 34.4 H (9.0-27.0) mg/dL Est GFR (CKD-EPI) 37 L (>=60) BUN/Creatinine Ratio 22.93 H (12.00-20.00) Ratio Glucose 151 H (70-110) mg/dL POC Glucose (mg/dL) 124 H 140 H (70-110) mg/dL 09/15/23 Range/Units 11:09 Carbon Dioxide (21.6-31.8) mmol/L Anion Gap (4.00-12.00) mmol/L BUN (9.0-27.0) mg/dL Est GFR (CKD-EPI) (>=60) BUN/Creatinine Ratio (12.00-20.00) Ratio Glucose (70-110) mg/dL POC Glucose (mg/dL) 158 H (70-110) mg/dL Assessment and Plan Plan: 1patient presenting to the hospital with weakness increasing shortness of breath, patient did have a positive UA and apparently did have a blood in the urine concerning for symptomatic urinary tract infection 2-patient with multiple antibiotic ALLERGIES that would limit the number of antibiotic safe to use 3-renal insufficiency high risk of nephrotoxicity from IV Bactrim 4-we will discontinue Bactrim DS 5-start the patient on Azactam 1 g every 8 hours while waiting for the culture to finalize We will follow on clinical condition and cultures to further adjust medication if needed Thank you for this consultation we will follow the patient along with you Dictation was produced using [employer] dictation software. please excuse any grammatical, word or spelling errors. Time with Patient: Greater than 30
[2023-09-16 06:06] LABS: Glucose,Whole Blood 153 mg/dL (70-110)
[2023-09-16 08:34] LABS: Basophils # (A) 0.03 X 10*3/uL (0.00-0.10); Basophils % (A) 0.4 %; Eosinophils # (A) 0.38 X 10*3/uL (0.04-0.35); Eosinophils % (A) 5.5 %; HCT 33.3 % (37.2-46.3); HGB 10.7 g/dL (12.0-15.0); Lymphocytes # (A) 1.78 X 10*3/uL (0.90-5.00); Lymphocytes % (A) 25.7 %; MCH 29.4 pg (27.0-32.0); MCHC 32.1 g/dL (32.0-37.0); MCV 91.5 FL (80.0-97.0); Mean Platelet Volume 11.3 FL (9.5-12.2); Monocytes % (A) 8.7 %; NRBC Per 100 WBC 0 X 10*3/uL (0.00-0.01); Neutrophils # (A) 4.13 X 10*3/uL (1.80-7.70); Neutrophils % (A) 59.6 %; Platelet Count 255 X 10*3/uL (140-440); RBC 3.64 X 10*6/uL (4.10-5.20); RDW 15.5 % (11.5-14.5); WBC 6.93 X 10*3/uL (4.50-10.00)
[2023-09-16 08:41] LABS: BUN/Creat Ratio 20.76 Ratio (12.00-20.00); Blood Urea Nitrogen 35.3 mg/dL (9.0-27.0); Calcium 8.9 mg/dL (8.7-10.3); Carbon Dioxide 21.5 mmol/L (21.6-31.8); Chloride 106 mmol/L (96-109); Glucose 139 mg/dL (70-110); Potassium 4.8 mmol/L (3.5-5.5); Sodium 141 mmol/L (135-145)
--- NOTE | 2023-09-16 08:48 | P.PN ---
Subjective Progress Note Date: 09/16/23 Principal diagnosis: Heart failure The patient is a pleasant 73-year-old female patient with a past medical history significant for coronary artery disease with a prior stenting as well as permanent atrial fibrillation and permanent pacemaker after AV marck ablation as well as multiple comorbid conditions was admitted to the hospital with symptoms consistent with heart failure as well as hematuria. Oral anticoagulation currently is on hold. September 16, 2023 The patient was seen and evaluated this morning. She is feeling somewhat better. She continues to have some shortness of breath and bilateral lower extremities edema and she continues to be on Lasix IV twice daily echo still pending. She continues to be in atrial fibrillation which is permanent with controlled heart rate. Oral anticoagulation is on hold at this point in the light of hematuria. The hematuria is currently under investigation. The examination is remarkable for regular rhythm with a systolic murmur at the apical area and clear breathing sounds bilaterally and no carotid bruit and no lower extremities edema noted Assessment Hematuria currently under investigation Anemia secondary to hematuria Heart failure with evidence of right and left heart failure of unknown etiology Coronary artery disease status post PCI Permanent pacemaker Multiple comorbid conditions Plan Continue holding oral anticoagulation Continue the investigation regarding hematuria Continue IV diuretics Monitor the kidney function and electrolytes Follow-up on the echocardiogram Objective - Vital Signs Vital signs: Vital Signs Temp 97.6 F 09/16/23 07:11 Pulse 59 L 09/16/23 07:11 Resp 17 09/16/23 07:11 BP 113/74 09/16/23 07:11 Pulse Ox 97 09/16/23 07:11 FiO2 Intake & Output 09/15/23 09/16/23 09/16/23 18:59 06:59 18:59 Other: Voiding Method Toilet Toilet Bedside Commode Bedside Commode # Voids 8 3 # Bowel Movements 3 - Labs CBC & Chem 7: 09/16/23 05:47 09/16/23 05:47 Labs: Abnormal Lab Results - Last 24 Hours (Table) 09/15/23 09/15/23 09/15/23 Range/Units 05:02 11:09 13:58 RBC (3.80-5.40) m/uL Hgb (11.4-16.0) gm/dL Hct (37.2-46.3) % MCHC (31.0-37.0) g/dL RDW (11.5-15.5) % Eosinophils # (0.04-0.35) X 10*3/uL Carbon Dioxide 19.6 L (21.6-31.8) mmol/L Anion Gap 13.40 H (4.00-12.00) mmol/L BUN 34.4 H (9.0-27.0) mg/dL Creatinine (0.6-1.5) mg/dL Est GFR (CKD-EPI) 37 L (>=60) BUN/Creatinine Ratio 22.93 H (12.00-20.00) Ratio Glucose 151 H (70-110) mg/dL POC Glucose (mg/dL) 158 H (70-110) mg/dL Hemoglobin A1c 6.4 H (<=6.0) % 09/15/23 09/15/23 09/15/23 Range/Units 13:58 19:00 20:46 RBC 3.68 L (3.80-5.40) m/uL Hgb 10.8 L (11.4-16.0) gm/dL Hct (37.2-46.3) % MCHC 30.9 L (31.0-37.0) g/dL RDW 15.6 H (11.5-15.5) % Eosinophils # (0.04-0.35) X 10*3/uL Carbon Dioxide (21.6-31.8) mmol/L Anion Gap (4.00-12.00) mmol/L BUN (9.0-27.0) mg/dL Creatinine (0.6-1.5) mg/dL Est GFR (CKD-EPI) (>=60) BUN/Creatinine Ratio (12.00-20.00) Ratio Glucose (70-110) mg/dL POC Glucose (mg/dL) 139 H (70-110) mg/dL Hemoglobin A1c (<=6.0) % 09/16/23 09/16/23 09/16/23 Range/Units 05:47 05:47 06:05 RBC 3.64 L (3.80-5.40) m/uL Hgb 10.7 L (11.4-16.0) gm/dL Hct 33.3 L (37.2-46.3) % MCHC (31.0-37.0) g/dL RDW 15.5 H (11.5-15.5) % Eosinophils # 0.38 H (0.04-0.35) X 10*3/uL Carbon Dioxide 21.5 L (21.6-31.8) mmol/L Anion Gap 13.50 H (4.00-12.00) mmol/L BUN 35.3 H (9.0-27.0) mg/dL Creatinine 1.7 H (0.6-1.5) mg/dL Est GFR (CKD-EPI) 32 L (>=60) BUN/Creatinine Ratio 20.76 H (12.00-20.00) Ratio Glucose 139 H (70-110) mg/dL POC Glucose (mg/dL) 153 H (70-110) mg/dL Hemoglobin A1c (<=6.0) % Microbiology - Last 24 Hours (Table) 09/14/23 19:22 Blood Culture - Preliminary Blood
[2023-09-16 11:16] LABS: Glucose,Whole Blood 193 mg/dL (70-110)
--- NOTE | 2023-09-16 12:00 | P.GSCN ---
History of Present Illness Consult date: 09/16/23 History of present illness: CHIEF COMPLAINT: Bright red blood in toilet HISTORY OF PRESENT ILLNESS: This is a 73-year-old female who presented to hospital with complaints of shortness of breath. She also had bright red blood in the toilet. Patient had thought that the blood was coming from the vaginal area. The bleeding started on Saturday. Patient reports there was a large amount of blood in the toilet. She has had no further bleeding today. Nursing staff did report there were some clots in the blood yesterday. Patient seen by both [facility] service and urology service. There is no evidence of vaginal bleeding and no hematuria reported. Patient is being treated for UTI. She is also on IV Lasix for CHF exacerbation. Patient is on a blood thinner at home which was stopped on September 12. Patient denies any abdominal pain. Denies any nausea or vomiting. Last EGD and colonoscopy was in 2020 which had revealed gastritis and a normal colonoscopy. Stool for occult blood was negative. CT scan abdomen pelvis did report diverticulosis and no abdominal pelvic mass. Patient does have a cardiac history of CHF, A-fib, coronary artery disease cardiac stents and pacemaker. PAST MEDICAL HISTORY: See list. PAST SURGICAL HISTORY: See list. MEDICATIONS: See list. ALLERGIES: See list. SOCIAL HISTORY: No illicit drug use. REVIEW OF SYSTEMS: CONSTITUTIONAL: Denies fever or chills. HEENT: Denies blurred vision, vision changes, or eye pain. Denies hemoptysis ENDOCRINE: Denies heat or cold intolerance. CARDIOVASCULAR: Denies chest pain or pressure. RESPIRATORY: No shortness of breath. GASTROINTESTINAL: Denies abdominal pain. Denies nausea or vomiting. NEURO: Denies history of seizures. PSYCH: No depression or suicidal ideation HEMATOLOGIC: Denies bleeding disorders. LYMPHATIC: The patient denies any lumps and bumps around the neck. GENITOURINARY: Denies any blood in urine or increased urinary frequency. MUSCULOSKELETAL: Denies myalgias. Denies joint swelling. Denies decreased range of motion beyond patients baseline. SKIN: Denies pruitis. Denies rash. PHYSICAL EXAM: VITAL SIGNS: Reviewed GENERAL: Well-developed in no acute distress. HEENT: No sclera icterus. Extraocular movements grossly intact. Moist buccal mucosa. Head is atraumatic, normocephalic. Hears conversational speech. No nasal drainage. NECK: Supple without lymphadenopathy. CHEST: Non-labored respirations and equal bilateral excursions. CARDIOVASCULAR: Palpable 2+ radial pulses. ABDOMEN: Soft. Nondistended. Nontender MUSCULOSKELETAL: No clubbing or cyanosis. NEUROLOGIC: No focal or lateralizing signs. Cranial nerves II through XII grossly intact. PSYCH: Appropriate affect. Alert and oriented to person, place and time. SKIN: Well perfused. Good skin turgor. LABORATORY DATA: WBC 6.93 Hgb 11.4 on admission now at 10.7 platelets 255 Sodium 141 potassium 4.8 creatinine 1.7 Stool for occult blood negative IMAGING: CT scan abdomen pelvis no evidence for acute process or intra-abdominal/pelvic mass ASSESSMENT: 1. Suspected GI bleed with bright red blood with blood clots 2. Acute blood loss anemia 3. UTI 4. CHF exacerbation 5. History of coronary artery disease with stents 6. History of permanent pacemaker PLAN: -Patient scheduled for EGD and colonoscopy on , 09/19/[address] Gonzalez -Continue to hold blood thinners -Continue to monitor hemoglobin -Continue to monitor for any signs or symptoms of bleeding Physician Reinforcing Rod Layer note has been reviewed by physician. Signing provider agrees with the documented findings, assessment, and plan of care. Past Medical History Past Medical History: Atrial Fibrillation, Heart Failure, Diabetes Mellitus, Eye Disorder, Hyperlipidemia, Osteoarthritis (OA), Pneumonia, Skin Disorder, Vascular Disorder Additional Past Medical History / Comment(s): Chronic Venous Stasis BLE w/ chronic ulceration of the left lower extremity, current small area still left leg, CAD W/ coronary stenting Rt PDA 2013. History of kidney stones. Pacemaker (Brand:ST DAPHNE). HAS CATARACT LT. WOUNDS LLE, USING SILVADENE CREAM. EDEMA BLE. seeing Dr Calderon r/t kidney function. Small wound LLE. History of Any Multi-Drug Resistant Organisms: None Reported Past Surgical History: Cardiac Ablation, Heart Catheterization, Heart Catheterization With Stent, Hysterectomy, Pacemaker, Tubal Ligation Additional Past Surgical History / Comment(s): states has had mult sx on veins left leg, [place] with cardioversion, varicose vein stripping, one cardiac stent, rt cataract, kidney stone sx, LLE surgery with stent and skin grafting. ANEMIA- BLOOD TRANSFUSIONS. Past Anesthesia/Blood Transfusion Reactions: No Reported Reaction Additional Past Anesthesia/Blood Transfusion Reaction / Comm: PONV 40 PLUS YEARS AGO, AFTER REMOVAL KIDNEY STONE. Date of Last Stent Placement:: November 2013 Type of Cardiac Device: Permanent Pacemaker Device Placement Date:: 10/30/2017 Past Psychological History: No Psychological Hx Reported Additional Psychological History / Comment(s): Pt's spouse had covid end of summer 2019 and d/t covid 05/22/20. Pt now lives alone. She drives. Smoking Status: Never smoker Past Alcohol Use History: None Reported Additional Past Alcohol Use History / Comment(s): Patient is a lifelong nonsmoker. She denies any medical marijuana, marijuana, street drug or alcohol use. Past Drug Use History: None Reported - Past Family History Father History Unknown: Yes Family Medical History: No Reported History Additional Family Medical History / Comment(s): Aneurysm, passed in 2000. Mother Family Medical History: Cancer Additional Family Medical History / Comment(s): Bladder and has since passed. Medications and Allergies Home Medications Medication Instructions Recorded Confirmed Type Atorvastatin [Lipitor] 40 mg PO HS 10/22/17 09/14/23 History metFORMIN HCL [Glucophage] 850 mg PO TID 10/30/17 09/14/23 History Insulin Glargine,Hum.rec.anlog 10 units SQ HS 12/16/17 09/14/23 History [Toujeo Solostar] Furosemide [Lasix] 40 mg PO BID 06/04/18 09/14/23 History Ferrous Sulfate [Iron (65 MG 325 mg PO BID 01/19/19 09/14/23 History Elemental)] allopurinoL [Zyloprim] 100 mg PO DAILY 03/25/19 09/14/23 History calcitrioL 0.25 mcg PO Q48H 03/25/19 09/14/23 History Sacubitril/Valsartan [Entresto 24 1 tab PO BID 04/13/19 09/14/23 History mg-26 mg Tablet] Cholecalciferol [Vitamin D3 (25 25 mcg PO HS 10/02/20 09/14/23 History Mcg = 1000 Iu)] Edoxaban Tosylate [Savaysa] 60 mg PO HS 01/30/21 09/14/23 History Metoprolol Tartrate [Lopressor] 50 mg PO BID 01/30/21 09/14/23 History Brimonidine Tartrate [Alphagan P 1 drop BOTH EYES BID 09/14/23 09/14/23 History 0.2% Ophth Soln] Dapagliflozin Propanediol [Farxiga] 10 mg PO DAILY 09/14/23 09/14/23 History Allergies Allergy/AdvReac Type Severity Reaction Status Date / Time Iodinated Contrast Media Allergy Severe THROAT Verified 09/14/23 14:17 [Iodinated Contrast Media - SWELLING Oral and] iodine Allergy Severe THROAT Verified 09/14/23 14:17 SWELLING, RASH shellfish derived Allergy Severe THROAT Verified 09/14/23 14:17 SWELLING, RASH cefazolin sodium Allergy Dyspnea Verified 09/14/23 14:17 [From Kefzol] Latex, Natural Rubber Allergy Rash/Hives Verified 09/14/23 14:17 levofloxacin [From Levaquin] Allergy Rash/Hives Verified 09/14/23 14:17 piperacillin sodium Allergy THROAT Verified 09/14/23 14:17 [From Zosyn] SWELL, RASH tazobactam sodium Allergy THROAT Verified 09/14/23 14:17 [From Zosyn] SWELL, RASH verapamil AdvReac Severe Hallucinati Verified 09/14/23 14:17 ons seafood Allergy Severe throat Uncoded 01/30/21 13:35 swelling Surgical - Exam Vital Signs Temp Pulse Resp BP Pulse Ox 98.3 F 60 20 136/80 98 09/14/23 12:34 09/14/23 12:34 09/14/23 12:34 09/14/23 12:34 09/14/23 12:34 Results - Labs 09/16/23 05:47 09/16/23 05:47 Abnormal Lab Results - Last 24 Hours (Table) 09/15/23 09/15/23 09/15/23 Range/Units 13:58 13:58 19:00 RBC 3.68 L (3.80-5.40) m/uL Hgb 10.8 L (11.4-16.0) gm/dL Hct (37.2-46.3) % MCHC 30.9 L (31.0-37.0) g/dL RDW 15.6 H (11.5-15.5) % Eosinophils # (0.04-0.35) X 10*3/uL Carbon Dioxide (21.6-31.8) mmol/L Anion Gap (4.00-12.00) mmol/L BUN (9.0-27.0) mg/dL Creatinine (0.6-1.5) mg/dL Est GFR (CKD-EPI) (>=60) BUN/Creatinine Ratio (12.00-20.00) Ratio Glucose (70-110) mg/dL POC Glucose (mg/dL) (70-110) mg/dL Hemoglobin A1c 6.4 H (<=6.0) % 09/15/23 09/16/23 09/16/23 Range/Units 20:46 05:47 05:47 RBC 3.64 L (3.80-5.40) m/uL Hgb 10.7 L (11.4-16.0) gm/dL Hct 33.3 L (37.2-46.3) % MCHC (31.0-37.0) g/dL RDW 15.5 H (11.5-15.5) % Eosinophils # 0.38 H (0.04-0.35) X 10*3/uL Carbon Dioxide 21.5 L (21.6-31.8) mmol/L Anion Gap 13.50 H (4.00-12.00) mmol/L BUN 35.3 H (9.0-27.0) mg/dL Creatinine 1.7 H (0.6-1.5) mg/dL Est GFR (CKD-EPI) 32 L (>=60) BUN/Creatinine Ratio 20.76 H (12.00-20.00) Ratio Glucose 139 H (70-110) mg/dL POC Glucose (mg/dL) 139 H (70-110) mg/dL Hemoglobin A1c (<=6.0) % 09/16/23 09/16/23 Range/Units 06:05 11:14 RBC (3.80-5.40) m/uL Hgb (11.4-16.0) gm/dL Hct (37.2-46.3) % MCHC (31.0-37.0) g/dL RDW (11.5-15.5) % Eosinophils # (0.04-0.35) X 10*3/uL Carbon Dioxide (21.6-31.8) mmol/L Anion Gap (4.00-12.00) mmol/L BUN (9.0-27.0) mg/dL Creatinine (0.6-1.5) mg/dL Est GFR (CKD-EPI) (>=60) BUN/Creatinine Ratio (12.00-20.00) Ratio Glucose (70-110) mg/dL POC Glucose (mg/dL) 153 H 193 H (70-110) mg/dL Hemoglobin A1c (<=6.0) % Microbiology - Last 24 Hours (Table) 09/14/23 14:47 Urine Culture - Preliminary Urine,Clean Catch Gram Neg Bacilli 09/14/23 19:22 Blood Culture - Preliminary Blood Diabetes panel 09/15/23 09/16/23 Range/Units 13:58 05:47 Sodium 141 (135-145) mmol/L Potassium 4.8 (3.5-5.5) mmol/L Chloride 106 (96-109) mmol/L Carbon Dioxide 21.5 L (21.6-31.8) mmol/L BUN 35.3 H (9.0-27.0) mg/dL Creatinine 1.7 H (0.6-1.5) mg/dL Glucose 139 H (70-110) mg/dL Hemoglobin A1c 6.4 H (<=6.0) % Calcium 8.9 (8.7-10.3) mg/dL Calcium panel 09/16/23 Range/Units 05:47 Calcium 8.9 (8.7-10.3) mg/dL Pituitary panel 09/16/23 Range/Units 05:47 Sodium 141 (135-145) mmol/L Potassium 4.8 (3.5-5.5) mmol/L Chloride 106 (96-109) mmol/L Carbon Dioxide 21.5 L (21.6-31.8) mmol/L BUN 35.3 H (9.0-27.0) mg/dL Creatinine 1.7 H (0.6-1.5) mg/dL Glucose 139 H (70-110) mg/dL Calcium 8.9 (8.7-10.3) mg/dL Adrenal panel 09/16/23 Range/Units 05:47 Sodium 141 (135-145) mmol/L Potassium 4.8 (3.5-5.5) mmol/L Chloride 106 (96-109) mmol/L Carbon Dioxide 21.5 L (21.6-31.8) mmol/L BUN 35.3 H (9.0-27.0) mg/dL Creatinine 1.7 H (0.6-1.5) mg/dL Glucose 139 H (70-110) mg/dL Calcium 8.9 (8.7-10.3) mg/dL
--- NOTE | 2023-09-16 13:23 | P.PN ---
Subjective Progress Note Date: 09/16/23 * 73-year-old patient with past medical history of coronary artery disease PCI to PDA 2013, RCA and LAD 2019 ischemic cardiomyopathy, history of atrial fibrillation chronic persistent s/p pacemaker in place, diabetes mellitus, hypertension, hyperlipidemia history of pulmonary hypertension presents to the emergency department with complaints of shortness of breath, exertional dyspnea. Decreased exercise tolerance. Patient also complained of right upper quadrant and flank pain ongoing for the last 24 hours/ * Workup initiated ER included CBC which showed WBC of 6.1 hemoglobin 11.4 platelet count of 248 * Serum chemistry showed sodium of 142 potassium 5.2, BUN 34 creatinine 1.37 glucose 112 lactate of 1.3 * N-terminal proBNP 8510, troponin 0.018 * Lipase is noted to be 294, urinalysis noted to be moderate amount of blood, nitrite positive, leukocyte esterase positive, many bacteria noted * After further discussion with the patient she is unsure about * Patient started on antibiotic with consultation from cardiology infectious disease and [employer] SHEET SUPERVISOR * 09/16/23: Patient seen and evaluated bedside, hemoglobin 10.7, electrolyte panel reviewed, sodium 141 potassium 4.8, dioxide 21 BUN 35 creatinine 1.7 calcium of 8.9. Appreciate input from cardiology, anticoagulation continues to remain on hold while we investigate bloody discharge. Surgery consulted planning colonoscopy PHYSICAL EXAMINATION: GENERAL: The patient is alert and oriented x3, not in any acute distress. Well developed, well nourished. HEENT: Pupils are round and equally reacting to light. EOMI. Normocephalic, atraumatic. No pharyngeal erythema. No thyromegaly. CARDIOVASCULAR: S1 and S2 present. No murmurs, rubs, or gallops. PULMONARY: Chest is clear to auscultation, no wheezing or crackles. ABDOMEN: Soft, nontender, nondistended, normoactive bowel sounds. No palpable organomegaly. MUSCULOSKELETAL: No joint swelling or deformity. EXTREMITIES: No cyanosis, clubbing, or pedal edema. NEUROLOGICAL: Gross neurological examination did not reveal any focal deficits. Assessment and plan * Acute on chronic congestive heart failure patient fraction of 45% * Urinary tract infection with hematuria * Acute bright red blood per rectum/lower GI bleed * Chronic atrial fibrillation s/p pacemaker in place * Diabetes mellitus type 2 * Hypertension * Hyperkalemia * In regards to congestive heart failure patient started on Lasix, cardiology consulted * In regards to urinary tract infection multiple allergies , infectious disease consulted started on aztreonam * In regards to atrial fibrillation, continue patient on metoprolol, telemonitoring edoxaban placed on hold * In regards to suspicion vaginal bleeding [employer] SHE[employer] SUPERVISOR consulted, exam completed no evidence of vaginal bleed noted * Regards to hematuria seen by urology Castrejon catheter inserted and clear urine noted * In regards to concern for rectal bleeding fecal occult blood test negative however could be false negative will consult surgery to evaluate for colonoscopy * CT abdomen and pelvis completed negative for acute intra-abdominal process * In regards to hypokalemia, potassium replaced and corrected * CODE STATUS is full code Objective - Vital Signs Vital signs: Vital Signs Temp 97.6 F 09/16/23 07:11 Pulse 60 09/16/23 07:50 Resp 17 09/16/23 07:11 BP 113/74 09/16/23 07:11 Pulse Ox 97 09/16/23 07:11 FiO2 Intake & Output 09/15/23 09/16/23 09/16/23 18:59 06:59 18:59 Other: Voiding Method Toilet Toilet Toilet Bedside Commode Bedside Commode Bedside Commode # Voids 8 3 # Bowel Movements 3 - Labs CBC & Chem 7: 09/16/23 05:47 09/16/23 05:47 Labs: Abnormal Lab Results - Last 24 Hours (Table) 09/15/23 09/15/23 09/15/23 Range/Units 11:09 13:58 13:58 RBC (3.80-5.40) m/uL Hgb (11.4-16.0) gm/dL Hct (37.2-46.3) % MCHC 30.9 L (31.0-37.0) g/dL RDW (11.5-15.5) % Eosinophils # (0.04-0.35) X 10*3/uL Carbon Dioxide (21.6-31.8) mmol/L Anion Gap (4.00-12.00) mmol/L BUN (9.0-27.0) mg/dL Creatinine (0.6-1.5) mg/dL Est GFR (CKD-EPI) (>=60) BUN/Creatinine Ratio (12.00-20.00) Ratio Glucose (70-110) mg/dL POC Glucose (mg/dL) 158 H (70-110) mg/dL Hemoglobin A1c 6.4 H (<=6.0) % 09/15/23 09/15/23 09/16/23 Range/Units 19:00 20:46 05:47 RBC 3.68 L 3.64 L (3.80-5.40) m/uL Hgb 10.8 L 10.7 L (11.4-16.0) gm/dL Hct 33.3 L (37.2-46.3) % MCHC (31.0-37.0) g/dL RDW 15.6 H 15.5 H (11.5-15.5) % Eosinophils # 0.38 H (0.04-0.35) X 10*3/uL Carbon Dioxide (21.6-31.8) mmol/L Anion Gap (4.00-12.00) mmol/L BUN (9.0-27.0) mg/dL Creatinine (0.6-1.5) mg/dL Est GFR (CKD-EPI) (>=60) BUN/Creatinine Ratio (12.00-20.00) Ratio Glucose (70-110) mg/dL POC Glucose (mg/dL) 139 H (70-110) mg/dL Hemoglobin A1c (<=6.0) % 09/16/23 09/16/23 Range/Units 05:47 06:05 RBC (3.80-5.40) m/uL Hgb (11.4-16.0) gm/dL Hct (37.2-46.3) % MCHC (31.0-37.0) g/dL RDW (11.5-15.5) % Eosinophils # (0.04-0.35) X 10*3/uL Carbon Dioxide 21.5 L (21.6-31.8) mmol/L Anion Gap 13.50 H (4.00-12.00) mmol/L BUN 35.3 H (9.0-27.0) mg/dL Creatinine 1.7 H (0.6-1.5) mg/dL Est GFR (CKD-EPI) 32 L (>=60) BUN/Creatinine Ratio 20.76 H (12.00-20.00) Ratio Glucose 139 H (70-110) mg/dL POC Glucose (mg/dL) 153 H (70-110) mg/dL Hemoglobin A1c (<=6.0) % Microbiology - Last 24 Hours (Table) 09/14/23 14:47 Urine Culture - Preliminary Urine,Clean Catch Gram Neg Bacilli 09/14/23 19:22 Blood Culture - Preliminary Blood
--- NOTE | 2023-09-16 13:25 | CA ---
Transthoracic Echo Report Name: Osiris Mendoza Age: 73 Gender: F : 1950 Exam Date: 09/16/2023 07:43 Exam Location: [facility] Ht (in): 66 Wt (lb): 220 Ordering Physician: Otis Ralph MD ([id number]) Attending/Referring Phys: Child Life Therapist Rachel Mayers RDCS Procedure CPT: Indications: chf Cardiac Hx: Technical Quality: Technically difficult study Contrast 1: Definity Total Dose (mL): 2 Contrast 2: Total Dose (mL): MEASUREMENTS (Male / Female) Normal Values 2D ECHO LV Diastolic Diameter PLAX 5.4 cm 4.2 - 5.9 / 3.9 - 5.3 cm LV Systolic Diameter PLAX 4.8 cm IVS Diastolic Thickness 0.9 cm 0.6 - 1.0 / 0.6 - 0.9 cm LVPW Diastolic Thickness 0.9 cm 0.6 - 1.0 / 0.6 - 0.9 cm LV Relative Wall Thickness 0.3 RV Internal Dim ED PLAX 3.8 cm LVOT Diameter 2.0 cm Aortic Root Diameter 3.2 cm LV Diastolic Volume MOD 4C 113.6 cm??? LV Systolic Volume MOD 4C 41.1 cm??? LV Ejection Fraction MOD 4C 63.9 % LV Cardiac Index MOD 4C 1982.2 cm???/min???m??? LV Diastolic Length 4C 7.4 cm LV Systolic Length 4C 6.2 cm LV Diastolic Volume MOD 2C 79.9 cm??? LV Diastolic Length 2C 7.4 cm Ascending Aorta Diameter 3.6 cm DOPPLER AV Peak Velocity 190.1 cm/s AV Peak Gradient 14.5 mmHg AV Mean Velocity 136.0 cm/s AV Mean Gradient 8.0 mmHg AV Velocity Time Integral 47.4 cm LVOT Peak Velocity 92.1 cm/s LVOT Peak Gradient 3.4 mmHg LVOT Velocity Time Integral 22.5 cm LVOT Stroke Volume 72.8 cm??? LVOT Stroke Volume Index 35.0 ml/m??? LVOT Cardiac Index 1988.9 cm???/min???m??? AV Area Cont Eq vti 1.5 cm??? AV Area Cont Eq pk 1.6 cm??? MV Peak Velocity 230.8 cm/s MV Peak Gradient 21.3 mmHg MV Mean Velocity 106.9 cm/s MV Mean Gradient 6.2 mmHg MV Velocity Time Integral 60.3 cm TR Peak Velocity 314.9 cm/s TR Peak Gradient 39.7 mmHg Right Atrial Pressure 15.0 mmHg Pulmonary Artery Systolic Pressu 54.7 mmHg Right Ventricular Systolic Press 54.7 mmHg PV Peak Velocity 99.0 cm/s PV Peak Gradient 3.9 mmHg FINDINGS Left Ventricle Left ventricular ejection fraction is estimated at 40-45 %. Left ventricular cavity size normal. Left ventricular wall thickness normal. Global hypokinesis. Right Ventricle Moderate right ventricular dilatation with mildly reduced function. Moderately elevated right ventricular systolic pressure. Right Atrium Catheter/pacemaker wire in the right atrial cavity. Severe right atrial dilatation. Left Atrium Severe left atrial dilatation. Mitral Valve Mitral valve thickened. No evidence for mitral valve prolapse. Mild to moderate mitral stenosis. Moderate mitral regurgitation. Aortic Valve Trileaflet aortic valve. Focal thickening of the aortic valve cusps. No aortic stenosis. No aortic regurgitation. Tricuspid Valve Structurally normal tricuspid valve. No tricuspid stenosis. Moderate tricuspid regurgitation. Pulmonic Valve Structurally normal pulmonic valve. No pulmonic stenosis. Trace pulmonic regurgitation. Pericardium No pericardial effusion. Aorta Normal size aortic root and proximal ascending aorta. CONCLUSIONS Technically difficult study for interpretation Mildly impaired LV function with EF around 45% Aortic sclerosis with no stenosis or regurgitation Thickened mitral valve leaflets with mild to moderate mitral stenosis and moderate mitral insufficiency Moderate pulmonary hypertension Enlarged right ventricle Moderate tricuspid regurgitation Previewed by: Dr. Tyler Coe MD (Electronically Signed) Final Date: 16 Sep 2023 13:24
[2023-09-16 16:11] LABS: Glucose,Whole Blood 165 mg/dL (70-110)
[2023-09-16 17:32] LABS: HCT 34.6 % (37.2-46.3); HGB 11.1 g/dL (12.0-15.0); MCH 30.1 pg (27.0-32.0); MCHC 32.1 g/dL (32.0-37.0); MCV 93.8 FL (80.0-97.0); Mean Platelet Volume 11.2 FL (9.5-12.2); NRBC Per 100 WBC 0 X 10*3/uL (0.00-0.01); Platelet Count 263 X 10*3/uL (140-440); RBC 3.69 X 10*6/uL (4.10-5.20); RDW 15.9 % (11.5-14.5); WBC 7.41 X 10*3/uL (4.50-10.00)
[2023-09-16] MEDS: metroNIDAZOLE-NS PMX 500 MG in SALINE 1 100ML.BAG IVPB SCH (17:37)
[2023-09-16 20:58] LABS: Glucose,Whole Blood 132 mg/dL (70-110)
--- NOTE | 2023-09-16 21:26 | P.PN ---
Subjective Progress Note Date: 09/16/23 Principal diagnosis: Reason for follow-up is UTI with multiple antibiotic allergies Patient is a 73-year-old female with a past medical history significant for atrial fibrillation hyperlipidemia diabetes mellitus heart failure with patient has been brought to the hospital for evaluation of increasing shortness of breath fatigue and noticed to have some blood in the u rine concerning for symptomatic UTI and this patient did have multiple antibiotic allergies. On today's evaluation that is 09/16/2023, the patient continues to be afebrile, the patient is on room air and breathing comfortably, the Pt denies having any chest pain or cough, the patient denies having any abdominal pain no vomiting or any diarrhea has been reported by the nursing staff. Patient did have a white count of 7.41, creatinine is 1.7 urine is growing gram- negative bacilli Objective - Vital Signs Vital signs: Vital Signs Temp 98.4 F 09/16/23 13:42 Pulse 60 09/16/23 13:42 Resp 16 09/16/23 13:42 BP 128/70 09/16/23 13:42 Pulse Ox 96 09/16/23 13:42 FiO2 Intake & Output 09/15/23 09/16/23 09/16/23 18:59 06:59 18:59 Other: Voiding Method Toilet Toilet Toilet Bedside Commode Bedside Commode Bedside Commode # Voids 8 3 7 # Bowel Movements 3 - Exam GENERAL DESCRIPTION: An elderly female up in the chair in no distress RESPIRATORY SYSTEM: Unlabored breathing , decreased breath sounds at bases HEART: S1 S2 regular rate and rhythm , ABDOMEN: Soft , no tenderness EXTREMITIES: No edema feet - Labs CBC & Chem 7: 09/16/23 11:30 09/16/23 05:47 Labs: Abnormal Lab Results - Last 24 Hours (Table) 09/15/23 09/15/23 09/15/23 Range/Units 13:58 13:58 19:00 RBC 3.68 L (3.80-5.40) m/uL Hgb 10.8 L (11.4-16.0) gm/dL Hct (37.2-46.3) % MCHC 30.9 L (31.0-37.0) g/dL RDW 15.6 H (11.5-15.5) % Eosinophils # (0.04-0.35) X 10*3/uL Carbon Dioxide (21.6-31.8) mmol/L Anion Gap (4.00-12.00) mmol/L BUN (9.0-27.0) mg/dL Creatinine (0.6-1.5) mg/dL Est GFR (CKD-EPI) (>=60) BUN/Creatinine Ratio (12.00-20.00) Ratio Glucose (70-110) mg/dL POC Glucose (mg/dL) (70-110) mg/dL Hemoglobin A1c 6.4 H (<=6.0) % 09/15/23 09/16/23 09/16/23 Range/Units 20:46 05:47 05:47 RBC 3.64 L (3.80-5.40) m/uL Hgb 10.7 L (11.4-16.0) gm/dL Hct 33.3 L (37.2-46.3) % MCHC (31.0-37.0) g/dL RDW 15.5 H (11.5-15.5) % Eosinophils # 0.38 H (0.04-0.35) X 10*3/uL Carbon Dioxide 21.5 L (21.6-31.8) mmol/L Anion Gap 13.50 H (4.00-12.00) mmol/L BUN 35.3 H (9.0-27.0) mg/dL Creatinine 1.7 H (0.6-1.5) mg/dL Est GFR (CKD-EPI) 32 L (>=60) BUN/Creatinine Ratio 20.76 H (12.00-20.00) Ratio Glucose 139 H (70-110) mg/dL POC Glucose (mg/dL) 139 H (70-110) mg/dL Hemoglobin A1c (<=6.0) % 09/16/23 09/16/23 09/16/23 Range/Units 06:05 11:14 11:30 RBC 3.69 L (3.80-5.40) m/uL Hgb 11.1 L (11.4-16.0) gm/dL Hct 34.6 L (37.2-46.3) % MCHC (31.0-37.0) g/dL RDW 15.9 H (11.5-15.5) % Eosinophils # (0.04-0.35) X 10*3/uL Carbon Dioxide (21.6-31.8) mmol/L Anion Gap (4.00-12.00) mmol/L BUN (9.0-27.0) mg/dL Creatinine (0.6-1.5) mg/dL Est GFR (CKD-EPI) (>=60) BUN/Creatinine Ratio (12.00-20.00) Ratio Glucose (70-110) mg/dL POC Glucose (mg/dL) 153 H 193 H (70-110) mg/dL Hemoglobin A1c (<=6.0) % 09/16/23 Range/Units 16:10 RBC (3.80-5.40) m/uL Hgb (11.4-16.0) gm/dL Hct (37.2-46.3) % MCHC (31.0-37.0) g/dL RDW (11.5-15.5) % Eosinophils # (0.04-0.35) X 10*3/uL Carbon Dioxide (21.6-31.8) mmol/L Anion Gap (4.00-12.00) mmol/L BUN (9.0-27.0) mg/dL Creatinine (0.6-1.5) mg/dL Est GFR (CKD-EPI) (>=60) BUN/Creatinine Ratio (12.00-20.00) Ratio Glucose (70-110) mg/dL POC Glucose (mg/dL) 165 H (70-110) mg/dL Hemoglobin A1c (<=6.0) % Microbiology - Last 24 Hours (Table) 09/14/23 14:47 Urine Culture - Preliminary Urine,Clean Catch Gram Neg Bacilli 09/14/23 19:22 Blood Culture - Preliminary Blood Assessment and Plan (1) Allergy to multiple antibiotics Current Visit: Yes Status: Acute Code(s): Z88.1 - ALLERGY STATUS TO OTHER ANTIBIOTIC AGENTS SNOMED Code(s): 189553990 (2) Urinary tract infection Current Visit: Yes Status: Acute Code(s): N39.0 - URINARY TRACT INFECTION, SITE NOT SPECIFIED SNOMED Code(s): 00748273 Plan: 1patient presenting to the hospital with weakness increasing shortness of breath, patient did have a positive UA and apparently did have a blood in the urine concerning for symptomatic urinary tract infection 2-patient with multiple antibiotic ALLERGIES that would limit the number of antibiotic safe to use 3-renal insufficiency high risk of nephrotoxicity from IV Bactrim 4-patient to continue with Azactam 1 g every 8 hours while waiting for the culture to finalize Dictation was produced using voxapp dictation software. please excuse any grammatical, word or spelling errors. Time with Patient: Less than 30
[2023-09-17 05:55] LABS: Glucose,Whole Blood 146 mg/dL (70-110)
[2023-09-17 08:45] LABS: HCT 32.8 % (37.2-46.3); HGB 10.7 g/dL (12.0-15.0); MCH 30.1 pg (27.0-32.0); MCHC 32.6 g/dL (32.0-37.0); MCV 92.1 FL (80.0-97.0); NRBC Per 100 WBC 0 X 10*3/uL (0.00-0.01); Platelet Count 232 X 10*3/uL (140-440); RBC 3.56 X 10*6/uL (4.10-5.20); RDW 15.8 % (11.5-14.5); WBC 6.71 X 10*3/uL (4.50-10.00)
--- NOTE | 2023-09-17 10:33 | P.PN ---
Subjective Progress Note Date: 09/17/23 Principal diagnosis: Heart failure The patient is a pleasant 73-year-old female patient with a past medical history significant for coronary artery disease with a prior stenting as well as permanent atrial fibrillation and permanent pacemaker after AV marck ablation as well as multiple comorbid conditions was admitted to the hospital with symptoms consistent with heart failure as well as hematuria. Oral anticoagulation currently is on hold. September 16, 2023 The patient was seen and evaluated this morning. She is feeling somewhat better. She continues to have some shortness of breath and bilateral lower extremities edema and she continues to be on Lasix IV twice daily echo still pending. She continues to be in atrial fibrillation which is permanent with controlled heart rate. Oral anticoagulation is on hold at this point in the light of hematuria. The hematuria is currently under investigation. The examination is remarkable for regular rhythm with a systolic murmur at the apical area and clear breathing sounds bilaterally and no carotid bruit and no lower extremities edema noted September 17, 2023 The patient was seen and evaluated this morning which she is feeling somewhat better. The edema has improved and the shortness of breath has improved. She continues to be on Lasix IV. Oral anticoagulation continues to be on hold. Also gastrointestinal bleeding to be ruled out. From the cardiac standpoint of view I would continue the current medical regimen. Examination is remarkable for diminished breathing sounds bilaterally and regular rate and rhythm with mild bilateral lower extremities edema Assessment Hematuria currently under investigation Anemia secondary to hematuria Heart failure with evidence of right and left heart failure of unknown etiology Coronary artery disease status post PCI Permanent pacemaker Multiple comorbid conditions Plan Continue holding oral anticoagulation Continue the investigation regarding hematuria and gastrointestinal bleed Continue IV diuretics Monitor the kidney function and electrolytes Follow-up on the echocardiogram Objective - Vital Signs Vital signs: Vital Signs Temp 97.7 F 09/17/23 07:28 Pulse 63 09/17/23 07:28 Resp 17 09/17/23 07:28 BP 118/67 09/17/23 07:28 Pulse Ox 92 L 09/17/23 07:28 FiO2 Intake & Output 09/16/23 09/17/23 09/17/23 18:59 06:59 18:59 Other: Voiding Method Toilet Toilet Toilet Bedside Commode Bedside Commode # Voids 7 3 - Labs CBC & Chem 7: 09/17/23 05:39 09/16/23 05:47 Labs: Abnormal Lab Results - Last 24 Hours (Table) 09/16/23 09/16/23 09/16/23 Range/Units 11:14 11:30 16:10 RBC 3.69 L (4.10-5.20) X 10*6/uL Hgb 11.1 L (12.0-15.0) g/dL Hct 34.6 L (37.2-46.3) % RDW 15.9 H (11.5-14.5) % POC Glucose (mg/dL) 193 H 165 H (70-110) mg/dL 09/16/23 09/17/23 09/17/23 Range/Units 20:55 05:39 05:53 RBC 3.56 L (4.10-5.20) X 10*6/uL Hgb 10.7 L (12.0-15.0) g/dL Hct 32.8 L (37.2-46.3) % RDW 15.8 H (11.5-14.5) % POC Glucose (mg/dL) 132 H 146 H (70-110) mg/dL Microbiology - Last 24 Hours (Table) 09/14/23 14:47 Urine Culture - Final Urine,Clean Catch Escherichia coli 09/14/23 19:22 Blood Culture - Preliminary Blood
[2023-09-17 11:30] LABS: Blood Urea Nitrogen 36.6 mg/dL (9.0-27.0); Calcium 9.1 mg/dL (8.7-10.3); Carbon Dioxide 21.9 mmol/L (21.6-31.8); Chloride 103 mmol/L (96-109); Glucose 137 mg/dL (70-110); Potassium 4.3 mmol/L (3.5-5.5); Sodium 139 mmol/L (135-145)
[2023-09-17 11:40] LABS: Glucose,Whole Blood 170 mg/dL (70-110)
--- NOTE | 2023-09-17 14:01 | P.PN ---
Subjective Progress Note Date: 09/17/23 CHIEF COMPLAINT: GI bleed HISTORY OF PRESENT ILLNESS: Patient reports no further bleeding. He she denies any abdominal pain. She did have episode of severe nausea around 2 AM. Denies any vomiting. Afebrile. WBC 6.71 Hgb 10.7 platelets 232 creatinine 2.0 PHYSICAL EXAM: VITAL SIGNS: Reviewed GENERAL: Well-developed in no acute distress. HEENT: No sclera icterus. Extraocular movements grossly intact. Moist buccal mucosa. Head is atraumatic, normocephalic. Hears conversational speech. No nasal drainage. NECK: Supple without lymphadenopathy. CHEST: Non-labored respirations and equal bilateral excursions. CARDIOVASCULAR: Palpable 2+ radial pulses. ABDOMEN: Soft. Nondistended. Nontender. MUSCULOSKELETAL: No clubbing or cyanosis. NEUROLOGIC: No focal or lateralizing signs. Cranial nerves II through XII grossly intact. PSYCH: Appropriate affect. Alert and oriented to person, place and time. SKIN: Well perfused. Good skin turgor. ASSESSMENT: 1. Suspected diverticular bleed causing an acute GI bleed with bright red blood per rectum. PLAN: -Discontinue the Flagyl. It is likely the cause of patient's nausea. -Patient is scheduled for EGD and colonoscopy on , 09/19/[address] Gonzalez -Start clear liquids in the AM Physician Feed Preparation Operator note has been reviewed by physician. Signing provider agrees with the documented findings, assessment, and plan of care. Objective - Vital Signs Vital signs: Vital Signs Temp 97.7 F 09/17/23 07:28 Pulse 63 09/17/23 07:28 Resp 17 09/17/23 07:28 BP 118/67 09/17/23 07:28 Pulse Ox 92 L 09/17/23 07:28 FiO2 Intake & Output 09/16/23 09/17/23 09/17/23 18:59 06:59 18:59 Other: Voiding Method Toilet Toilet Toilet Bedside Commode Bedside Commode # Voids 7 3 - Labs CBC & Chem 7: 09/17/23 05:39 09/17/23 05:39 Labs: Abnormal Lab Results - Last 24 Hours (Table) 09/16/23 09/16/23 09/16/23 Range/Units 11:14 11:30 16:10 RBC 3.69 L (4.10-5.20) X 10*6/uL Hgb 11.1 L (12.0-15.0) g/dL Hct 34.6 L (37.2-46.3) % RDW 15.9 H (11.5-14.5) % POC Glucose (mg/dL) 193 H 165 H (70-110) mg/dL 09/16/23 09/17/23 09/17/23 Range/Units 20:55 05:39 05:53 RBC 3.56 L (4.10-5.20) X 10*6/uL Hgb 10.7 L (12.0-15.0) g/dL Hct 32.8 L (37.2-46.3) % RDW 15.8 H (11.5-14.5) % POC Glucose (mg/dL) 132 H 146 H (70-110) mg/dL Microbiology - Last 24 Hours (Table) 09/14/23 14:47 Urine Culture - Final Urine,Clean Catch Escherichia coli 09/14/23 19:22 Blood Culture - Preliminary Blood
[2023-09-17 16:49] LABS: Glucose,Whole Blood 151 mg/dL (70-110)
[2023-09-17] MEDS: ACETAMINOPHEN TAB 325 MG TAB PO PRN (20:39)
[2023-09-17 21:24] LABS: Glucose,Whole Blood 152 mg/dL (70-110)
--- NOTE | 2023-09-17 22:01 | P.PN ---
Subjective Progress Note Date: 09/17/23 73-year-old patient with past medical history of coronary artery disease PCI to PDA 2013, RCA and LAD 2019 ischemic cardiomyopathy, history of atrial fibrillation chronic persistent s/p pacemaker in place, diabetes mellitus, hypertension, hyperlipidemia history of pulmonary hypertension presents to the emergency department with complaints of shortness of breath, exertional dyspnea. Decreased exercise tolerance. Patient also complained of right upper quadrant and flank pain ongoing for the last 24 hours/ * Workup initiated ER included CBC which showed WBC of 6.1 hemoglobin 11.4 platelet count of 248 * Serum chemistry showed sodium of 142 potassium 5.2, BUN 34 creatinine 1.37 glucose 112 lactate of 1.3 * N-terminal proBNP 8510, troponin 0.018 * Lipase is noted to be 294, urinalysis noted to be moderate amount of blood, nitrite positive, leukocyte esterase positive, many bacteria noted * After further discussion with the patient she is unsure about * Patient started on antibiotic with consultation from cardiology infectious disease and GEOPHYSICAL COMPUTER * 09/16/23: Patient seen and evaluated bedside, hemoglobin 10.7, electrolyte panel reviewed, sodium 141 potassium 4.8, dioxide 21 BUN 35 creatinine 1.7 calcium of 8.9. Appreciate input from cardiology, anticoagulation continues to remain on hold while we investigate bloody discharge. Surgery consulted planning colonoscopy 2D echocardiogram showed mildly impaired LV systolic function with ejection fraction of 45%, aortic sclerosis, thickened mitral valve leaflets and mild to moderate mitral stenosis and moderate moderate MR and moderate pulmonary h ypertension and moderate TR. Enlarged right ventricle. 10/07/2023 Patient is currently sitting in the chair. Awake alert and oriented x 3. No complaints of chest pain or shortness of breath. No complaints of abdominal pain. Patient did have another episodes of breath and blood per rectum overni ght. No complaints of hematuria or dysuria. No headache or dizziness. Laboratory data showed WBC 6.7 hemoglobin 10.7 from 11.1 yesterday and platelet count 232 BUN 36.6 and creatinine 2.09 blood sugar 137. Patient is being continued on antibiotics aztreonam due to multiple allergies. Patient is also on IV Lasix 40 mg every 12. Cardiology, ID and general surgery is on board. Current medications reviewed. PHYSICAL EXAMINATION: GENERAL: The patient is alert and oriented x3, not in any acute distress. Well developed, well nourished. HEENT: Pupils are round and equally reacting to light. EOMI. Normocephalic, atraumatic. No pharyngeal erythema. No thyromegaly. CARDIOVASCULAR: S1 and S2 present. No murmurs, rubs, or gallops. PULMONARY: Chest is clear to auscultation, no wheezing or crackles. ABDOMEN: Soft, nontender, nondistended, normoactive bowel sounds. No palpable organomegaly. MUSCULOSKELETAL: No joint swelling or deformity. EXTREMITIES: No cyanosis, clubbing, or pedal edema. NEUROLOGICAL: Gross neurological examination did not reveal any focal deficits. Assessment and plan * Acute on chronic congestive heart failure with systolic and diastolic dysfunction. Ejection fraction of 45% * Urinary tract infection with hematuria * Acute bright red blood per rectum/lower GI bleed. Possible diverticular. * Chronic atrial fibrillation s/p pacemaker in place * Diabetes mellitus type 2 * Hypertension * Hyperkalemia * In regards to congestive heart failure patient started on IV Lasix, cardiology is on board * In regards to urinary tract infection multiple allergies , infectious disease consulted started on aztreonam * In regards to atrial fibrillation, continue patient on metoprolol, telemonitoring edoxaban placed on hold due to GI bleed * In regards to suspicion vaginal bleeding GEOPHYSICAL COMPUTER consulted, exam completed no evidence of vaginal bleed noted * Regards to hematuria seen by urology Castrejon catheter inserted and clear urine noted * In regards to concern for rectal bleeding fecal occult blood test negative however could be false negative. General surgery is planning for EGD and colonoscopy on * CT abdomen and pelvis completed negative for acute intra-abdominal process * In regards to hypokalemia, potassium replaced and corrected * CODE STATUS is full code Objective - Vital Signs Vital signs: Vital Signs Temp 97.7 F 09/17/23 07:28 Pulse 63 09/17/23 07:28 Resp 17 09/17/23 07:28 BP 118/67 09/17/23 07:28 Pulse Ox 92 L 09/17/23 07:28 FiO2 Intake & Output 09/16/23 09/17/23 09/17/23 18:59 06:59 18:59 Other: Voiding Method Toilet Toilet Bedside Commode Bedside Commode # Voids 7 3 - Labs CBC & Chem 7: 09/17/23 05:39 09/17/23 05:39 Labs: Abnormal Lab Results - Last 24 Hours (Table) 09/16/23 09/16/23 09/16/23 Range/Units 11:14 11:30 16:10 RBC 3.69 L (4.10-5.20) X 10*6/uL Hgb 11.1 L (12.0-15.0) g/dL Hct 34.6 L (37.2-46.3) % RDW 15.9 H (11.5-14.5) % POC Glucose (mg/dL) 193 H 165 H (70-110) mg/dL 09/16/23 09/17/23 09/17/23 Range/Units 20:55 05:39 05:53 RBC 3.56 L (4.10-5.20) X 10*6/uL Hgb 10.7 L (12.0-15.0) g/dL Hct 32.8 L (37.2-46.3) % RDW 15.8 H (11.5-14.5) % POC Glucose (mg/dL) 132 H 146 H (70-110) mg/dL Microbiology - Last 24 Hours (Table) 09/14/23 19:22 Blood Culture - Preliminary Blood 09/14/23 14:47 Urine Culture - Preliminary Urine,Clean Catch Gram Neg Bacilli Assessment and Plan Time with Patient: Greater than 30
[2023-09-18 05:54] LABS: Glucose,Whole Blood 157 mg/dL (70-110)
[2023-09-18 08:32] LABS: Basophils # (A) 0.03 X 10*3/uL (0.00-0.10); Basophils % (A) 0.5 %; Eosinophils # (A) 0.41 X 10*3/uL (0.04-0.35); Eosinophils % (A) 6.3 %; HCT 34.7 % (37.2-46.3); HGB 11.1 g/dL (12.0-15.0); Lymphocytes # (A) 1.75 X 10*3/uL (0.90-5.00); MCH 29.1 pg (27.0-32.0); MCV 91.1 FL (80.0-97.0); Mean Platelet Volume 10.7 FL (9.5-12.2); Monocytes # (A) 0.68 X 10*3/uL (0.20-1.00); Monocytes % (A) 10.5 %; NRBC Per 100 WBC 0 X 10*3/uL (0.00-0.01); Neutrophils # (A) 3.58 X 10*3/uL (1.80-7.70); Neutrophils % (A) 55.4 %; Platelet Count 271 X 10*3/uL (140-440); RBC 3.81 X 10*6/uL (4.10-5.20); RDW 15.6 % (11.5-14.5); WBC 6.47 X 10*3/uL (4.50-10.00)
[2023-09-18 08:52] LABS: BUN/Creat Ratio 21.62 Ratio (12.00-20.00); Blood Urea Nitrogen 45.4 mg/dL (9.0-27.0); Carbon Dioxide 22.8 mmol/L (21.6-31.8); Chloride 104 mmol/L (96-109); Glucose 161 mg/dL (70-110); Potassium 4.5 mmol/L (3.5-5.5); Sodium 142 mmol/L (135-145)
[2023-09-18 11:18] LABS: Glucose,Whole Blood 171 mg/dL (70-110)
--- NOTE | 2023-09-18 11:33 | P.PN ---
Subjective HISTORY OF PRESENT ILLNESS: The patient is a pleasant 73-year-old female patient with a past medical history significant for coronary artery disease with a prior stenting as well as permanent atrial fibrillation and permanent pacemaker after AV marck ablation as well as multiple comorbid conditions was admitted to the hospital with symptoms consistent with heart failure as well as hematuria. Oral anticoagulation currently is on hold. September 16, 2023 The patient was seen and evaluated this morning. She is feeling somewhat better. She continues to have some shortness of breath and bilateral lower extremities edema and she continues to be on Lasix IV twice daily echo still pending. She continues to be in atrial fibrillation which is permanent with controlled heart rate. Oral anticoagulation is on hold at this point in the light of hematuria. The hematuria is currently under investigation. The examination is remarkable for regular rhythm with a systolic murmur at the apical area and clear breathing sounds bilaterally and no carotid bruit and no lower extremities edema noted September 17, 2023 The patient was seen and evaluated this morning which she is feeling somewhat better. The edema has improved and the shortness of breath has improved. She continues to be on Lasix IV. Oral anticoagulation continues to be on hold. Also gastrointestinal bleeding to be ruled out. From the cardiac standpoint of view I would continue the current medical regimen. Examination is remarkable for diminished breathing sounds bilaterally and regular rate and rhythm with mild bilateral lower extremities edema 09/18/2023 Patient examined this morning. Patient is sitting up in the chair. Patient reports improvement in her shortness of breath. She denies chest pain or pressure. She remains on IV Lasix. Creatinine today 2.1. 1. 7 on admission. General surgery has evaluated the patient and plan is for endoscopy tomorrow. Echocardiogram completed revealing ejection fraction 40 to 45%, mild to moderate MS, moderate MR, moderate TR, and moderate pulmonary hypertension PHYSICAL EXAM: VITAL SIGNS: Reviewed. GENERAL: Well-developed in no acute distress. NECK: Supple. No JVD or thyromegaly LUNGS: Respirations even and unlabored. Lungs essentially clear to auscultation bilaterally. HEART: Regular rate and rhythm. S1 and S2 heard. EXTREMITIES: Normal range of motion. No clubbing or cyanosis. Peripheral pulses intact. No lower extremity edema ASSESSMENT: Hematuria Bright red blood per rectum Anemia, suspect acute blood loss Acute on chronic heart failure with reduced EF, 40 to 45% Cute kidney injury Coronary artery disease with previous PCI Permanent atrial fibrillation History of AV marck ablation History of permanent pacemaker implantation Hypertension Hyperlipidemia Diabetes PLAN: Discontinue IV Lasix today due to worsening kidney function Continue to monitor kidney function. Repeat in a.m. Continue Entresto and Farxiga. If kidney function worsens may consider holding these medications. Savaysa remains on hold. Continue to monitor hemoglobin Patient is scheduled for endoscopy tomorrow with general surgery Further recommendations pending patient course Nurse practitioner note has been reviewed by physician. Signing provider agrees with the documented findings, assessment, and plan of care documented by GENERAL TELLER as a scribe. Objective - Vital Signs Vital signs: Vital Signs Temp 97.5 F L 09/18/23 07:24 Pulse 60 09/18/23 07:45 Resp 17 09/18/23 07:24 BP 132/77 09/18/23 07:24 Pulse Ox 94 L 09/18/23 07:24 FiO2 Intake & Output 09/17/23 09/18/23 09/18/23 18:59 06:59 18:59 Other: Voiding Method Toilet # Voids 1 3 - Labs CBC & Chem 7: 09/18/23 05:31 09/18/23 05:31 Labs: Abnormal Lab Results - Last 24 Hours (Table) 09/17/23 09/17/23 09/17/23 Range/Units 05:39 11:38 16:47 RBC (4.10-5.20) X 10*6/uL Hgb (12.0-15.0) g/dL Hct (37.2-46.3) % RDW (11.5-14.5) % Eosinophils # (0.04-0.35) X 10*3/uL Anion Gap 14.10 H (4.00-12.00) mmol/L BUN 36.6 H (9.0-27.0) mg/dL Creatinine 2.0 H (0.6-1.5) mg/dL Est GFR (CKD-EPI) 26 L (>=60) BUN/Creatinine Ratio (12.00-20.00) Ratio Glucose 137 H (70-110) mg/dL POC Glucose (mg/dL) 170 H 151 H (70-110) mg/dL 09/17/23 09/18/23 09/18/23 Range/Units 21:22 05:31 05:31 RBC 3.81 L (4.10-5.20) X 10*6/uL Hgb 11.1 L (12.0-15.0) g/dL Hct 34.7 L (37.2-46.3) % RDW 15.6 H (11.5-14.5) % Eosinophils # 0.41 H (0.04-0.35) X 10*3/uL Anion Gap 15.20 H (4.00-12.00) mmol/L BUN 45.4 H (9.0-27.0) mg/dL Creatinine 2.1 H (0.6-1.5) mg/dL Est GFR (CKD-EPI) 25 L (>=60) BUN/Creatinine Ratio 21.62 H (12.00-20.00) Ratio Glucose 161 H (70-110) mg/dL POC Glucose (mg/dL) 152 H (70-110) mg/dL 09/18/23 09/18/23 Range/Units 05:50 11:16 RBC (4.10-5.20) X 10*6/uL Hgb (12.0-15.0) g/dL Hct (37.2-46.3) % RDW (11.5-14.5) % Eosinophils # (0.04-0.35) X 10*3/uL Anion Gap (4.00-12.00) mmol/L BUN (9.0-27.0) mg/dL Creatinine (0.6-1.5) mg/dL Est GFR (CKD-EPI) (>=60) BUN/Creatinine Ratio (12.00-20.00) Ratio Glucose (70-110) mg/dL POC Glucose (mg/dL) 157 H 171 H (70-110) mg/dL Microbiology - Last 24 Hours (Table) 09/14/23 19:22 Blood Culture - Preliminary Blood 09/14/23 14:47 Urine Culture - Final Urine,Clean Catch Escherichia coli
--- NOTE | 2023-09-18 13:46 | P.PN ---
Subjective Progress Note Date: 09/18/23 CHIEF COMPLAINT: GI bleed HISTORY OF PRESENT ILLNESS: Patient reports no further bleeding. He she denies any abdominal pain. She denies any nausea or vomiting. Cardiology has discontinue the IV Lasix. Case discussed with cardiology nurse practitioner. She reported no contraindication to proceed with scopes. WBC 6.47 Hgb 11.1 platelets 271 creatinine is up 2.1 PHYSICAL EXAM: VITAL SIGNS: Reviewed GENERAL: Well-developed in no acute distress. HEENT: No sclera icterus. Extraocular movements grossly intact. Moist buccal mucosa. Head is atraumatic, normocephalic. Hears conversational speech. No nasal drainage. NECK: Supple without lymphadenopathy. CHEST: Non-labored respirations and equal bilateral excursions. CARDIOVASCULAR: Palpable 2+ radial pulses. ABDOMEN: Soft. Nondistended. Nontender. MUSCULOSKELETAL: No clubbing or cyanosis. NEUROLOGIC: No focal or lateralizing signs. Cranial nerves II through XII grossly intact. PSYCH: Appropriate affect. Alert and oriented to person, place and time. SKIN: Well perfused. Good skin turgor. ASSESSMENT: 1. Suspected diverticular bleed causing an acute GI bleed with bright red blood per rectum. PLAN: -Patient is scheduled for EGD and colonoscopy tomorrow 09/19/[address] Gonzalez -Start GoLytely bowel prep with lactulose -Clear liquid diet today -N.p.o. after midnight -Case discussed with cardiology and medicine WELT RANDER Physician Space Officer note has been reviewed by physician. Signing provider agrees with the documented findings, assessment, and plan of care. Objective - Vital Signs Vital signs: Vital Signs Temp 97.5 F L 09/18/23 07:24 Pulse 60 09/18/23 07:45 Resp 17 09/18/23 07:24 BP 132/77 09/18/23 07:24 Pulse Ox 94 L 09/18/23 07:24 FiO2 Intake & Output 09/17/23 09/18/23 09/18/23 18:59 06:59 18:59 Other: Voiding Method Toilet # Voids 1 3 - Labs CBC & Chem 7: 09/18/23 05:31 09/18/23 05:31 Labs: Abnormal Lab Results - Last 24 Hours (Table) 09/17/23 09/17/23 09/18/23 Range/Units 16:47 21:22 05:31 RBC 3.81 L (4.10-5.20) X 10*6/uL Hgb 11.1 L (12.0-15.0) g/dL Hct 34.7 L (37.2-46.3) % RDW 15.6 H (11.5-14.5) % Eosinophils # 0.41 H (0.04-0.35) X 10*3/uL Anion Gap (4.00-12.00) mmol/L BUN (9.0-27.0) mg/dL Creatinine (0.6-1.5) mg/dL Est GFR (CKD-EPI) (>=60) BUN/Creatinine Ratio (12.00-20.00) Ratio Glucose (70-110) mg/dL POC Glucose (mg/dL) 151 H 152 H (70-110) mg/dL 09/18/23 09/18/23 09/18/23 Range/Units 05:31 05:50 11:16 RBC (4.10-5.20) X 10*6/uL Hgb (12.0-15.0) g/dL Hct (37.2-46.3) % RDW (11.5-14.5) % Eosinophils # (0.04-0.35) X 10*3/uL Anion Gap 15.20 H (4.00-12.00) mmol/L BUN 45.4 H (9.0-27.0) mg/dL Creatinine 2.1 H (0.6-1.5) mg/dL Est GFR (CKD-EPI) 25 L (>=60) BUN/Creatinine Ratio 21.62 H (12.00-20.00) Ratio Glucose 161 H (70-110) mg/dL POC Glucose (mg/dL) 157 H 171 H (70-110) mg/dL Microbiology - Last 24 Hours (Table) 09/14/23 19:22 Blood Culture - Preliminary Blood 09/14/23 14:47 Urine Culture - Final Urine,Clean Catch Escherichia coli
[2023-09-18] MEDS: LACTULOSE 20 GM/30 ML CUP PO ONE (14:48)
[2023-09-18] MEDS: PEG 3350 (420 GM/BTL) + LYTES 4,000 ML BOTTLE PO ONE (15:50)
[2023-09-18] MEDS: DEXTROSE 5%-0.45% NACL 1,000 ML IV SCH (16:21)
[2023-09-18 16:34] LABS: Glucose,Whole Blood 172 mg/dL (70-110)
[2023-09-18 20:38] LABS: Glucose,Whole Blood 152 mg/dL (70-110)
[2023-09-19 05:49] LABS: Glucose,Whole Blood 141 mg/dL (70-110)
[2023-09-19 08:46] LABS: Basophils # (A) 0.03 X 10*3/uL (0.00-0.10); Basophils % (A) 0.5 %; Eosinophils # (A) 0.37 X 10*3/uL (0.04-0.35); Eosinophils % (A) 6.1 %; HCT 34.4 % (37.2-46.3); HGB 10.9 g/dL (12.0-15.0); Lymphocytes # (A) 1.69 X 10*3/uL (0.90-5.00); Lymphocytes % (A) 27.9 %; MCH 29.5 pg (27.0-32.0); MCHC 31.7 g/dL (32.0-37.0); Mean Platelet Volume 10.5 FL (9.5-12.2); Monocytes # (A) 0.75 X 10*3/uL (0.20-1.00); Monocytes % (A) 12.4 %; NRBC Per 100 WBC 0.02 X 10*3/uL (0.00-0.01); Neutrophils # (A) 3.21 X 10*3/uL (1.80-7.70); Neutrophils % (A) 52.9 %; Platelet Count 244 X 10*3/uL (140-440); RDW 15.8 % (11.5-14.5); WBC 6.06 X 10*3/uL (4.50-10.00)
[2023-09-19 09:04] LABS: BUN/Creat Ratio 21.88 Ratio (12.00-20.00); Blood Urea Nitrogen 37.2 mg/dL (9.0-27.0); Carbon Dioxide 26.6 mmol/L (21.6-31.8); Chloride 103 mmol/L (96-109); Glucose 137 mg/dL (70-110); Potassium 4.5 mmol/L (3.5-5.5); Sodium 141 mmol/L (135-145)
--- NOTE | 2023-09-19 09:17 | P.PN ---
Subjective Progress Note Date: 09/18/23 73-year-old patient with past medical history of coronary artery disease PCI to PDA 2013, RCA and LAD 2019 ischemic cardiomyopathy, history of atrial fibrillation chronic persistent s/p pacemaker in place, diabetes mellitus, hypertension, hyperlipidemia history of pulmonary hypertension presents to the emergency department with complaints of shortness of breath, exertional dyspnea. Decreased exercise tolerance. Patient also complained of right upper quadrant and flank pain ongoing for the last 24 hours/ * Workup initiated ER included CBC which showed WBC of 6.1 hemoglobin 11.4 platelet count of 248 * Serum chemistry showed sodium of 142 potassium 5.2, BUN 34 creatinine 1.37 glucose 112 lactate of 1.3 * N-terminal proBNP 8510, troponin 0.018 * Lipase is noted to be 294, urinalysis noted to be moderate amount of blood, nitrite positive, leukocyte esterase positive, many bacteria noted * After further discussion with the patient she is unsure about * Patient started on antibiotic with consultation from cardiology infectious disease and RAYON TESTER * 09/16/23: Patient seen and evaluated bedside, hemoglobin 10.7, electrolyte panel reviewed, sodium 141 potassium 4.8, dioxide 21 BUN 35 creatinine 1.7 calcium of 8.9. Appreciate input from cardiology, anticoagulation continues to remain on hold while we investigate bloody discharge. Surgery consulted planning colonoscopy 2D echocardiogram showed mildly impaired LV systolic function with ejection fraction of 45%, aortic sclerosis, thickened mitral valve leaflets and mild to moderate mitral stenosis and moderate moderate MR and moderate pulmonary h ypertension and moderate TR. Enlarged right ventricle. 10/07/2023 Patient is currently sitting in the chair. Awake alert and oriented x 3. No complaints of chest pain or shortness of breath. No complaints of abdominal pain. Patient did have another episodes of breath and blood per rectum overni ght. No complaints of hematuria or dysuria. No headache or dizziness. Laboratory data showed WBC 6.7 hemoglobin 10.7 from 11.1 yesterday and platelet count 232 BUN 36.6 and creatinine 2.09 blood sugar 137. Patient is being continued on antibiotics aztreonam due to multiple allergies. Patient is also on IV Lasix 40 mg every 12. Cardiology, ID and general surgery is on board. 09/18/2023 Patient is sitting in the chair. Awake alert and oriented x 3. No further episodes of GI bleed. Otherwise patient is being continued on diuresis Lasix changed to by mouth. Patient was on IV diuresis with Lasix. Renal function is worsening with BUN 45 and creatinine 2.1 and blood sugar 161. Hemoglobin is fairly stable at 11.1. General surgery is planning for EGD and colonoscopy tomorrow. Other laboratory data reviewed. Current medications reviewed. PHYSICAL EXAMINATION: GENERAL: The patient is alert and oriented x3, not in any acute distress. Well developed, well nourished. HEENT: Pupils are round and equally reacting to light. EOMI. Normocephalic, atraumatic. No pharyngeal erythema. No thyromegaly. CARDIOVASCULAR: S1 and S2 present. No murmurs, rubs, or gallops. PULMONARY: Chest is clear to auscultation, no wheezing or crackles. ABDOMEN: Soft, nontender, nondistended, normoactive bowel sounds. No palpable organomegaly. MUSCULOSKELETAL: No joint swelling or deformity. EXTREMITIES: No cyanosis, clubbing, or pedal edema. NEUROLOGICAL: Gross neurological examination did not reveal any focal deficits. Assessment and plan * Acute on chronic congestive heart failure with systolic and diastolic dysfunction. Ejection fraction of 45% * Urinary tract infection with hematuria * Acute bright red blood per rectum/lower GI bleed. Possible diverticular bleed. * Chronic atrial fibrillation s/p pacemaker in place * Diabetes mellitus type 2 * Hypertension * Hyperkalemia * In regards to congestive heart failure. Patient was on IV Lasix, cardiology is on board * In regards to urinary tract infection multiple allergies , infectious disease consulted started on aztreonam * In regards to atrial fibrillation, continue patient on metoprolol, telemonitoring edoxaban placed on hold due to GI bleed * In regards to suspicion vaginal bleeding RAYON TESTER consulted, exam completed no evidence of vaginal bleed noted * Regards to hematuria seen by urology Castrejon catheter inserted and clear urine noted * In regards to concern for rectal bleeding fecal occult blood test negative h owever could be false negative. General surgery is planning for EGD and colonoscopy tomorrow. * CT abdomen and pelvis completed negative for acute intra-abdominal process * In regards to hypokalemia, potassium replaced and corrected * Patient was started on gentle IV hydration with D5 half-normal saline due to worsening renal function. Lasix is on hold. * CODE STATUS is full code Objective - Vital Signs Vital signs: Vital Signs Temp 97.4 F L 09/19/23 01:16 Pulse 61 05/09/24 01:16 Resp 14 09/19/23 01:16 BP 101/59 09/19/23 01:16 Pulse Ox 96 09/19/23 01:16 FiO2 Intake & Output 09/18/23 09/18/23 09/19/23 06:59 18:59 06:59 Other: # Voids 3 5 6 # Bowel Movements 4 12 - Labs CBC & Chem 7: 09/19/23 03:42 09/19/23 03:42 Labs: Abnormal Lab Results - Last 24 Hours (Table) 09/18/23 09/18/23 09/18/23 Range/Units 05:31 05:31 05:50 RBC 3.81 L (4.10-5.20) X 10*6/uL Hgb 11.1 L (12.0-15.0) g/dL Hct 34.7 L (37.2-46.3) % RDW 15.6 H (11.5-14.5) % Eosinophils # 0.41 H (0.04-0.35) X 10*3/uL Anion Gap 15.20 H (4.00-12.00) mmol/L BUN 45.4 H (9.0-27.0) mg/dL Creatinine 2.1 H (0.6-1.5) mg/dL Est GFR (CKD-EPI) 25 L (>=60) BUN/Creatinine Ratio 21.62 H (12.00-20.00) Ratio Glucose 161 H (70-110) mg/dL POC Glucose (mg/dL) 157 H (70-110) mg/dL 09/18/23 09/18/23 09/18/23 Range/Units 11:16 16:30 20:33 RBC (4.10-5.20) X 10*6/uL Hgb (12.0-15.0) g/dL Hct (37.2-46.3) % RDW (11.5-14.5) % Eosinophils # (0.04-0.35) X 10*3/uL Anion Gap (4.00-12.00) mmol/L BUN (9.0-27.0) mg/dL Creatinine (0.6-1.5) mg/dL Est GFR (CKD-EPI) (>=60) BUN/Creatinine Ratio (12.00-20.00) Ratio Glucose (70-110) mg/dL POC Glucose (mg/dL) 171 H 172 H 152 H (70-110) mg/dL Microbiology - Last 24 Hours (Table) 09/14/23 19:22 Blood Culture - Preliminary Blood Assessment and Plan Time with Patient: Greater than 30
--- NOTE | 2023-09-19 09:35 | P.PN ---
Subjective HISTORY OF PRESENT ILLNESS: The patient is a pleasant 73-year-old female patient with a past medical history significant for coronary artery disease with a prior stenting as well as permanent atrial fibrillation and permanent pacemaker after AV marck ablation as well as multiple comorbid conditions was admitted to the hospital with symptoms consistent with heart failure as well as hematuria. Oral anticoagulation currently is on hold. September 16, 2023 The patient was seen and evaluated this morning. She is feeling somewhat better. She continues to have some shortness of breath and bilateral lower extremities edema and she continues to be on Lasix IV twice daily echo still pending. She continues to be in atrial fibrillation which is permanent with controlled heart rate. Oral anticoagulation is on hold at this point in the light of hematuria. The hematuria is currently under investigation. The examination is remarkable for regular rhythm with a systolic murmur at the apical area and clear breathing sounds bilaterally and no carotid bruit and no lower extremities edema noted September 17, 2023 The patient was seen and evaluated this morning which she is feeling somewhat better. The edema has improved and the shortness of breath has improved. She continues to be on Lasix IV. Oral anticoagulation continues to be on hold. Also gastrointestinal bleeding to be ruled out. From the cardiac standpoint of view I would continue the current medical regimen. Examination is remarkable for diminished breathing sounds bilaterally and regular rate and rhythm with mild bilateral lower extremities edema 09/18/2023 Patient examined this morning. Patient is sitting up in the chair. Patient reports improvement in her shortness of breath. She denies chest pain or pressure. She remains on IV Lasix. Creatinine today 2.1. 1. 7 on admission. General surgery has evaluated the patient and plan is for endoscopy tomorrow. Echocardiogram completed revealing ejection fraction 40 to 45%, mild to moderate MS, moderate MR, moderate TR, and moderate pulmonary hypertension 09/19/2023 Patient examined this morning at the bedside. Patient is sitting up in the chair. Patient denies chest pain or pressure. She denies shortness of breath. Patient's Lasix was discontinued yesterday secondary to worsening creatinine. It has improved today at 1.7. She is scheduled to undergo endoscopy today. PHYSICAL EXAM: VITAL SIGNS: Reviewed. GENERAL: Well-developed in no acute distress. NECK: Supple. No JVD or thyromegaly LUNGS: Respirations even and unlabored. Lungs essentially clear to auscultation bilaterally. HEART: Regular rate and rhythm. S1 and S2 heard. EXTREMITIES: Normal range of motion. No clubbing or cyanosis. Peripheral pul ses intact. No lower extremity edema ASSESSMENT: Hematuria Bright red blood per rectum Anemia, suspect acute blood loss Acute on chronic heart failure with reduced EF, 40 to 45% Cute kidney injury Coronary artery disease with previous PCI Permanent atrial fibrillation History of AV marck ablation History of permanent pacemaker implantation Hypertension Hyperlipidemia Diabetes PLAN: Lasix discontinued yesterday secondary to worsening kidney function. Will resume oral diuretics tomorrow. Continue to monitor kidney function. Repeat in a.m. Continue Entresto and Farxiga. If kidney function worsens may consider holding these medications. Savaysa remains on hold. Continue to monitor hemoglobin Patient is scheduled for endoscopy today with general surgery Further recommendations pending patient course Nurse practitioner note has been reviewed by physician. Signing provider agrees with the documented findings, assessment, and plan of care documented by [employer] as a scribe. Objective - Vital Signs Vital signs: Vital Signs Temp 98.3 F 09/19/23 07:30 Pulse 58 L 09/19/23 07:30 Resp 18 09/19/23 07:30 BP 117/72 09/19/23 07:30 Pulse Ox 97 09/19/23 07:30 FiO2 Intake & Output 09/18/23 09/19/23 09/19/23 18:59 06:59 18:59 Other: # Voids 5 6 # Bowel Movements 4 12 - Labs CBC & Chem 7: 09/19/23 03:42 09/19/23 03:42 Labs: Abnormal Lab Results - Last 24 Hours (Table) 09/18/23 09/18/23 09/18/23 Range/Units 11:16 16:30 20:33 RBC (4.10-5.20) X 10*6/uL Hgb (12.0-15.0) g/dL Hct (37.2-46.3) % MCHC (32.0-37.0) g/dL RDW (11.5-14.5) % Eosinophils # (0.04-0.35) X 10*3/uL NRBC/100 WBC Diff (0.00-0.01) X 10*3/uL BUN (9.0-27.0) mg/dL Creatinine (0.6-1.5) mg/dL Est GFR (CKD-EPI) (>=60) BUN/Creatinine Ratio (12.00-20.00) Ratio Glucose (70-110) mg/dL POC Glucose (mg/dL) 171 H 172 H 152 H (70-110) mg/dL 09/19/23 09/19/23 09/19/23 Range/Units 03:42 03:42 05:44 RBC 3.70 L (4.10-5.20) X 10*6/uL Hgb 10.9 L (12.0-15.0) g/dL Hct 34.4 L (37.2-46.3) % MCHC 31.7 L (32.0-37.0) g/dL RDW 15.8 H (11.5-14.5) % Eosinophils # 0.37 H (0.04-0.35) X 10*3/uL NRBC/100 WBC Diff 0.02 H (0.00-0.01) X 10*3/uL BUN 37.2 H (9.0-27.0) mg/dL Creatinine 1.7 H (0.6-1.5) mg/dL Est GFR (CKD-EPI) 32 L (>=60) BUN/Creatinine Ratio 21.88 H (12.00-20.00) Ratio Glucose 137 H (70-110) mg/dL POC Glucose (mg/dL) 141 H (70-110) mg/dL
--- NOTE | 2023-09-19 11:32 | P.PN ---
Subjective Progress Note Date: 09/19/23 73-year-old patient with past medical history of coronary artery disease PCI to PDA 2013, RCA and LAD 2019 ischemic cardiomyopathy, history of atrial fibrillation chronic persistent s/p pacemaker in place, diabetes mellitus, hypertension, hyperlipidemia history of pulmonary hypertension presents to the emergency department with complaints of shortness of breath, exertional dyspnea. Decreased exercise tolerance. Patient also complained of right upper quadrant and flank pain ongoing for the last 24 hours/ * Workup initiated ER included CBC which showed WBC of 6.1 hemoglobin 11.4 platelet count of 248 * Serum chemistry showed sodium of 142 potassium 5.2, BUN 34 creatinine 1.37 glucose 112 lactate of 1.3 * N-terminal proBNP 8510, troponin 0.018 * Lipase is noted to be 294, urinalysis noted to be moderate amount of blood, nitrite positive, leukocyte esterase positive, many bacteria noted * After further discussion with the patient she is unsure about * Patient started on antibiotic with consultation from cardiology infectious disease and POMOLOGIST * 09/16/23: Patient seen and evaluated bedside, hemoglobin 10.7, electrolyte panel reviewed, sodium 141 potassium 4.8, dioxide 21 BUN 35 creatinine 1.7 calcium of 8.9. Appreciate input from cardiology, anticoagulation continues to remain on hold while we investigate bloody discharge. Surgery consulted planning colonoscopy 2D echocardiogram showed mildly impaired LV systolic function with ejection fraction of 45%, aortic sclerosis, thickened mitral valve leaflets and mild to moderate mitral stenosis and moderate moderate MR and moderate pulmonary h ypertension and moderate TR. Enlarged right ventricle. 10/07/2023 Patient is currently sitting in the chair. Awake alert and oriented x 3. No complaints of chest pain or shortness of breath. No complaints of abdominal pain. Patient did have another episodes of breath and blood per rectum overni ght. No complaints of hematuria or dysuria. No headache or dizziness. Laboratory data showed WBC 6.7 hemoglobin 10.7 from 11.1 yesterday and platelet count 232 BUN 36.6 and creatinine 2.09 blood sugar 137. Patient is being continued on antibiotics aztreonam due to multiple allergies. Patient is also on IV Lasix 40 mg every 12. Cardiology, ID and general surgery is on board. 09/18/2023 Patient is sitting in the chair. Awake alert and oriented x 3. No further episodes of GI bleed. Otherwise patient is being continued on diuresis Lasix changed to by mouth. Patient was on IV diuresis with Lasix. Renal function is worsening with BUN 45 and creatinine 2.1 and blood sugar 161. Hemoglobin is fairly stable at 11.1. General surgery is planning for EGD and colonoscopy tomorrow. Other laboratory data reviewed. 09/19/2023 Patient is currently sitting in the chair comfortably awake alert and oriented x 3. No complaints of chest pain or shortness of breath. Renal function improved with creatinine level 1.7. Patient is currently n.p.o. and is scheduled for EGD and colonoscopy today. No nausea vomiting abdominal pain or diarrhea. No further episodes of bleeding per rectum. Current medications reviewed. PHYSICAL EXAMINATION: GENERAL: The patient is alert and oriented x3, not in any acute distress. Well developed, well nourished. HEENT: Pupils are round and equally reacting to light. EOMI. Normocephalic, atraumatic. No pharyngeal erythema. No thyromegaly. CARDIOVASCULAR: S1 and S2 present. No murmurs, rubs, or gallops. PULMONARY: Chest is clear to auscultation, no wheezing or crackles. ABDOMEN: Soft, nontender, nondistended, normoactive bowel sounds. No palpable organomegaly. MUSCULOSKELETAL: No joint swelling or deformity. EXTREMITIES: No cyanosis, clubbing, or pedal edema. NEUROLOGICAL: Gross neurological examination did not reveal any focal deficits. Assessment and plan * Acute on chronic congestive heart failure with systolic and diastolic dysfun ction. Ejection fraction of 45% * Urinary tract infection with hematuria * Acute bright red blood per rectum/lower GI bleed. Possible diverticular bleed. * Chronic atrial fibrillation s/p pacemaker in place * Diabetes mellitus type 2 * Hypertension * Hyperkalemia * In regards to congestive heart failure. Patient was on IV Lasix, cardiology is on board * In regards to urinary tract infection multiple allergies , infectious disease consulted started on aztreonam * In regards to atrial fibrillation, continue patient on metoprolol, telemonitoring edoxaban placed on hold due to GI bleed * In regards to suspicion vaginal bleeding POMOLOGIST consulted, exam completed no evidence of vaginal bleed noted * Regards to hematuria seen by urology Castrejon catheter inserted and clear urine noted * In regards to concern for rectal bleeding fecal occult blood test negative however could be false negative. Patient is scheduled for EGD and colonoscopy today. * CT abdomen and pelvis completed negative for acute intra-abdominal process * In regards to hypokalemia, potassium replaced and corrected * Continue with gentle IV hydration with D5 normal saline until after surgery.. Lasix is on hold. * CODE STATUS is full code Objective - Vital Signs Vital signs: Vital Signs Temp 98.3 F 09/19/23 07:30 Pulse 58 L 09/19/23 07:30 Resp 18 09/19/23 07:30 BP 117/72 09/19/23 07:30 Pulse Ox 97 09/19/23 07:30 FiO2 Intake & Output 09/18/23 09/19/23 09/19/23 18:59 06:59 18:59 Other: # Voids 5 6 # Bowel Movements 4 12 - Labs CBC & Chem 7: 09/19/23 03:42 09/19/23 03:42 Labs: Abnormal Lab Results - Last 24 Hours (Table) 09/18/23 09/18/23 09/19/23 Range/Units 16:30 20:33 03:42 RBC (4.10-5.20) X 10*6/uL Hgb (12.0-15.0) g/dL Hct (37.2-46.3) % MCHC (32.0-37.0) g/dL RDW (11.5-14.5) % Eosinophils # (0.04-0.35) X 10*3/uL NRBC/100 WBC Diff (0.00-0.01) X 10*3/uL BUN 37.2 H (9.0-27.0) mg/dL Creatinine 1.7 H (0.6-1.5) mg/dL Est GFR (CKD-EPI) 32 L (>=60) BUN/Creatinine Ratio 21.88 H (12.00-20.00) Ratio Glucose 137 H (70-110) mg/dL POC Glucose (mg/dL) 172 H 152 H (70-110) mg/dL 09/19/23 09/19/23 Range/Units 03:42 05:44 RBC 3.70 L (4.10-5.20) X 10*6/uL Hgb 10.9 L (12.0-15.0) g/dL Hct 34.4 L (37.2-46.3) % MCHC 31.7 L (32.0-37.0) g/dL RDW 15.8 H (11.5-14.5) % Eosinophils # 0.37 H (0.04-0.35) X 10*3/uL NRBC/100 WBC Diff 0.02 H (0.00-0.01) X 10*3/uL BUN (9.0-27.0) mg/dL Creatinine (0.6-1.5) mg/dL Est GFR (CKD-EPI) (>=60) BUN/Creatinine Ratio (12.00-20.00) Ratio Glucose (70-110) mg/dL POC Glucose (mg/dL) 141 H (70-110) mg/dL
[2023-09-19 11:47] LABS: Glucose,Whole Blood 171 mg/dL (70-110)
[2023-09-19] MEDS: IV FLUID CONTINUATION 1,000 ML IV ONE (12:05)
[2023-09-19] MEDS ORDERED: PROPOFOL 10 MG/ML 20 ML VIAL IV ONE (12:11)
--- NOTE | 2023-09-19 12:59 | P.PCN ---
Date of Procedure: 09/19/23 Description of Procedure: PREOPERATIVE DIAGNOSIS: Gastrointestinal bleeding POSTOPERATIVE DIAGNOSIS: Acute on chronic gastritis without active bleeding Gastroesophageal reflux disease Diaphragmatic hiatal hernia OPERATION: Esophagogastroduodenoscopy with biopsies along esophagus, duodenum, antrum SURGEON: Ro Gonzalez MD ANESTHESIA: MAC. INDICATIONS: The patient is a 73-year-old female who presents with gastrointestinal bleeding. Benefits and risks of the procedure were described. Informed consent was obtained. DESCRIPTION: The patient was brought into the endoscopy suite and laid in the left lateral decubitus position. An Olympus gastroscope was passed along the posterior oropharynx down to the distal esophagus where the squamocolumnar junction was encountered at 37 cm from the incisors. The stomach was entered and no bile reflux was found. Additional findings are listed below. The first through third portion of the duodenum was examined and unremarkable. Retroflexion of the scope confirmed Hill grade 3 lower esophageal valve. The squamocolumnar junction demonstrated LA grade C erosive esophagitis. The stomach was desufflated. The patient tolerated the procedure well. FINDINGS: Squamocolumnar junction 37 cm from the incisors. Diaphragmatic hiatus at 38 cm. Hiatal hernia, 1 cm Hill grade 3 lower esophageal valve. LA grade C erosive esophagitis. Biopsies obtained for esophagitis Biopsy obtained of the duodenum Biopsies obtained for gastritis No stigmata of bleeding RECOMMENDATIONS: 1. Diet as tolerated 2. Upper endoscopy as needed
--- NOTE | 2023-09-19 13:02 | P.PCN ---
Date of Procedure: 09/19/23 Description of Procedure: PREOPERATIVE DIAGNOSIS: Gastrointestinal bleeding Anemia POSTOPERATIVE DIAGNOSIS: Severe sigmoid diverticulosis Rectal adenoma OPERATION: Colonoscopy to the cecum, ileocecal valve and appendiceal orifice Colonoscopy with hot snare polypectomy, rectum SURGEON: Ro Gonzalez MD. ANESTHESIA: MAC. INDICATIONS: The patient is a 73-year-old female who presents with gastrointestinal bleeding and anemia. Benefits and risks were described and informed consent was obtained. DESCRIPTION OF PROCEDURE: The patient had undergone attempted Golytely prep 4 L. The patient had been brought into the operating room and laid in the left lateral decubitus position. After adequate intravenous sedation, the rectum was examined with 2% lidocaine jelly. Rectal tone was within normal limits. No large external hemorrhoids were identified. An Olympus colonoscope was gently advanced to the cecum with clear visualization of the ileocecal valve including appendiceal orifice. The prep was good. Moderate sigmoid diverticulosis was encountered without active bleeding. No active colonic bleeding was found. No intraluminal masses were identified within the colon. Rectal adenoma was identified and removed via snare polypectomy. No evidence of focal colitis was found. Retroflexion of the scope demonstrated grade 2 internal hemorrhoids without inflammation. The colon was desufflated. The patient had tolerated the procedure well. Withdrawal time was over 6 minutes. FINDINGS: Aronchick preparation quality scale 2 (1-5) Internal hemorrhoids, grade 2 No thrombosed hemorrhoid identified. No arteriovenous malformations. Moderate to severe sigmoid diverticulosis without active bleeding or inflammation No stigmata of bleeding Removal 1 polyp: -Snare polypectomy at 10 cm from the anal verge, 4 mm adenoma No focal colitis. RECOMMENDATIONS: 1. Diet as tolerated 2. Recommend 25-30 g of fiber for sigmoid diverticulosis Plan - Discharge Summary Discharge Rx Participant: No New Discharge Prescriptions: No Action Atorvastatin [Lipitor] 40 mg PO HS metFORMIN HCL [Glucophage] 850 mg PO TID Insulin Glargine,Hum.rec.anlog [Toujeo Solostar] 10 units SQ HS Furosemide [Lasix] 40 mg PO BID Ferrous Sulfate [Iron (65 MG Elemental)] 325 mg PO BID allopurinoL [Zyloprim] 100 mg PO DAILY calcitrioL 0.25 mcg PO Q48H Sacubitril/Valsartan [Entresto 24 mg-26 mg Tablet] 1 tab PO BID Cholecalciferol [Vitamin D3 (25 Mcg = 1000 Iu)] 25 mcg PO HS Metoprolol Tartrate [Lopressor] 50 mg PO BID Edoxaban Tosylate [Savaysa] 60 mg PO HS Brimonidine Tartrate [Alphagan P 0.2% Ophth Soln] 1 drop BOTH EYES BID Dapagliflozin Propanediol [Farxiga] 10 mg PO DAILY Discharge Medication List Atorvastatin [Lipitor] 40 mg PO HS 10/22/17 [History] metFORMIN HCL [Glucophage] 850 mg PO TID 10/30/17 [History] Insulin Glargine,Hum.rec.anlog [Toujeo Solostar] 10 units SQ HS 12/16/17 [History] Furosemide [Lasix] 40 mg PO BID 06/04/18 [History] Ferrous Sulfate [Iron (65 MG Elemental)] 325 mg PO BID 01/19/19 [History] allopurinoL [Zyloprim] 100 mg PO DAILY 03/25/19 [History] calcitrioL 0.25 mcg PO Q48H 03/25/19 [History] Sacubitril/Valsartan [Entresto 24 mg-26 mg Tablet] 1 tab PO BID 04/13/19 [History] Cholecalciferol [Vitamin D3 (25 Mcg = 1000 Iu)] 25 mcg PO HS 10/02/20 [History] Edoxaban Tosylate [Savaysa] 60 mg PO HS 01/30/21 [History] Metoprolol Tartrate [Lopressor] 50 mg PO BID 01/30/21 [History] Brimonidine Tartrate [Alphagan P 0.2% Ophth Soln] 1 drop BOTH EYES BID 09/14/23 [History] Dapagliflozin Propanediol [Farxiga] 10 mg PO DAILY 09/14/23 [History] Follow up Appointment(s)/Referral(s): Edgardo Juarez MD [Primary Care Provider] - 1-2 days
--- NOTE | 2023-09-19 15:08 | P.PN ---
Subjective Progress Note Date: 09/17/23 Principal diagnosis: Reason for follow-up is UTI with multiple antibiotic allergies Patient is a 73-year-old female with a past medical history significant for atrial fibrillation hyperlipidemia diabetes mellitus heart failure with patient has been brought to the hospital for evaluation of increasing shortness of breath fatigue and noticed to have some blood in the u rine concerning for symptomatic UTI and this patient did have multiple antibiotic allergies. On today's evaluation that is 09/17/2023, Patient is afebrile patient is currently on room air and denies having any shortness of breath, the patient denies any chest pain or cough, the patient denies any nausea vomiting did not have any abdominal pain and no diarrhea, no new symptoms Patient white count is 6.71, creatinine is 2.0 Objective - Vital Signs Vital signs: Vital Signs Temp 97.6 F 09/17/23 13:35 Pulse 62 09/17/23 13:35 Resp 16 09/17/23 13:35 BP 99/54 09/17/23 13:35 Pulse Ox 96 09/17/23 13:35 FiO2 Intake & Output 09/16/23 09/17/23 09/17/23 18:59 06:59 18:59 Other: Voiding Method Toilet Toilet Toilet Bedside Commode Bedside Commode # Voids 7 3 - Exam GENERAL DESCRIPTION: An elderly female up in the chair in no distress RESPIRATORY SYSTEM: Unlabored breathing , decreased breath sounds at bases HEART: S1 S2 regular rate and rhythm , ABDOMEN: Soft , no tenderness EXTREMITIES: No edema feet - Labs CBC & Chem 7: 09/19/23 03:42 09/19/23 03:42 Labs: Abnormal Lab Results - Last 24 Hours (Table) 09/16/23 09/16/23 09/16/23 Range/Units 11:30 16:10 20:55 RBC 3.69 L (4.10-5.20) X 10*6/uL Hgb 11.1 L (12.0-15.0) g/dL Hct 34.6 L (37.2-46.3) % RDW 15.9 H (11.5-14.5) % Anion Gap (4.00-12.00) mmol/L BUN (9.0-27.0) mg/dL Creatinine (0.6-1.5) mg/dL Est GFR (CKD-EPI) (>=60) Glucose (70-110) mg/dL POC Glucose (mg/dL) 165 H 132 H (70-110) mg/dL 09/17/23 09/17/23 09/17/23 Range/Units 05:39 05:39 05:53 RBC 3.56 L (4.10-5.20) X 10*6/uL Hgb 10.7 L (12.0-15.0) g/dL Hct 32.8 L (37.2-46.3) % RDW 15.8 H (11.5-14.5) % Anion Gap 14.10 H (4.00-12.00) mmol/L BUN 36.6 H (9.0-27.0) mg/dL Creatinine 2.0 H (0.6-1.5) mg/dL Est GFR (CKD-EPI) 26 L (>=60) Glucose 137 H (70-110) mg/dL POC Glucose (mg/dL) 146 H (70-110) mg/dL 09/17/23 Range/Units 11:38 RBC (4.10-5.20) X 10*6/uL Hgb (12.0-15.0) g/dL Hct (37.2-46.3) % RDW (11.5-14.5) % Anion Gap (4.00-12.00) mmol/L BUN (9.0-27.0) mg/dL Creatinine (0.6-1.5) mg/dL Est GFR (CKD-EPI) (>=60) Glucose (70-110) mg/dL POC Glucose (mg/dL) 170 H (70-110) mg/dL Microbiology - Last 24 Hours (Table) 09/14/23 14:47 Urine Culture - Final Urine,Clean Catch Escherichia coli 09/14/23 19:22 Blood Culture - Preliminary Blood Assessment and Plan (1) Allergy to multiple antibiotics Current Visit: Yes Status: Acute Code(s): Z88.1 - ALLERGY STATUS TO OTHER ANTIBIOTIC AGENTS SNOMED Code(s): 734766907 (2) Urinary tract infection Current Visit: Yes Status: Acute Code(s): N39.0 - URINARY TRACT INFECTION, SITE NOT SPECIFIED SNOMED Code(s): 26184314 Plan: 1patient presenting to the hospital with weakness increasing shortness of breath, patient did have a positive UA and apparently did have a blood in the urine concerning for symptomatic urinary tract infection 2-patient with multiple antibiotic ALLERGIES that would limit the number of antibiotic safe to use 3-renal insufficiency high risk of nephrotoxicity from IV Bactrim 4-patient seem to have some improvement clinically and will continue with Azactam 1 g every 8 hours Dictation was produced using [employer] dictation software. please excuse any grammatical, word or spelling errors. Time with Patient: Less than 30
--- NOTE | 2023-09-19 15:09 | P.PN ---
Subjective Progress Note Date: 09/18/23 Principal diagnosis: Reason for follow-up is UTI with multiple antibiotic allergies Patient is a 73-year-old female with a past medical history significant for atrial fibrillation hyperlipidemia diabetes mellitus heart failure with patient has been brought to the hospital for evaluation of increasing shortness of breath fatigue and noticed to have some blood in the u rine concerning for symptomatic UTI and this patient did have multiple antibiotic allergies. On today's evaluation that is 09/18/2023, patient has been afebrile, patient is breathing comfortably and is currently on room air, patient denies having any significant cough no chest pain shortness of breath, patient denies nausea vomiting or diarrhea and no abdominal pain, feeling slightly better today Patient white count is 6.47 creatinine is 2.1 Objective - Vital Signs Vital signs: Vital Signs Temp 97.4 F L 09/18/23 14:00 Pulse 60 09/18/23 14:00 Resp 15 09/18/23 14:00 BP 93/60 09/18/23 14:00 Pulse Ox 97 09/18/23 14:00 FiO2 Intake & Output 09/17/23 09/18/23 09/18/23 18:59 06:59 18:59 Other: Voiding Method Toilet # Voids 1 3 - Exam GENERAL DESCRIPTION: An elderly female up in the chair in no distress RESPIRATORY SYSTEM: Unlabored breathing , decreased breath sounds at bases HEART: S1 S2 regular rate and rhythm , ABDOMEN: Soft , no tenderness EXTREMITIES: No edema feet - Labs CBC & Chem 7: 09/19/23 03:42 09/19/23 03:42 Labs: Abnormal Lab Results - Last 24 Hours (Table) 09/17/23 09/17/23 09/18/23 Range/Units 16:47 21:22 05:31 RBC 3.81 L (4.10-5.20) X 10*6/uL Hgb 11.1 L (12.0-15.0) g/dL Hct 34.7 L (37.2-46.3) % RDW 15.6 H (11.5-14.5) % Eosinophils # 0.41 H (0.04-0.35) X 10*3/uL Anion Gap (4.00-12.00) mmol/L BUN (9.0-27.0) mg/dL Creatinine (0.6-1.5) mg/dL Est GFR (CKD-EPI) (>=60) BUN/Creatinine Ratio (12.00-20.00) Ratio Glucose (70-110) mg/dL POC Glucose (mg/dL) 151 H 152 H (70-110) mg/dL 09/18/23 09/18/23 09/18/23 Range/Units 05:31 05:50 11:16 RBC (4.10-5.20) X 10*6/uL Hgb (12.0-15.0) g/dL Hct (37.2-46.3) % RDW (11.5-14.5) % Eosinophils # (0.04-0.35) X 10*3/uL Anion Gap 15.20 H (4.00-12.00) mmol/L BUN 45.4 H (9.0-27.0) mg/dL Creatinine 2.1 H (0.6-1.5) mg/dL Est GFR (CKD-EPI) 25 L (>=60) BUN/Creatinine Ratio 21.62 H (12.00-20.00) Ratio Glucose 161 H (70-110) mg/dL POC Glucose (mg/dL) 157 H 171 H (70-110) mg/dL 09/18/23 Range/Units 16:30 RBC (4.10-5.20) X 10*6/uL Hgb (12.0-15.0) g/dL Hct (37.2-46.3) % RDW (11.5-14.5) % Eosinophils # (0.04-0.35) X 10*3/uL Anion Gap (4.00-12.00) mmol/L BUN (9.0-27.0) mg/dL Creatinine (0.6-1.5) mg/dL Est GFR (CKD-EPI) (>=60) BUN/Creatinine Ratio (12.00-20.00) Ratio Glucose (70-110) mg/dL POC Glucose (mg/dL) 172 H (70-110) mg/dL Microbiology - Last 24 Hours (Table) 09/14/23 19:22 Blood Culture - Preliminary Blood Assessment and Plan (1) Allergy to multiple antibiotics Current Visit: Yes Status: Acute Code(s): Z88.1 - ALLERGY STATUS TO OTHER ANTIBIOTIC AGENTS SNOMED Code(s): 126947833 (2) Urinary tract infection Current Visit: Yes Status: Acute Code(s): N39.0 - URINARY TRACT INFECTION, SITE NOT SPECIFIED SNOMED Code(s): 79487743 Plan: 1patient presenting to the hospital with weakness increasing shortness of elen ath, patient did have a positive UA and apparently did have a blood in the urine concerning for symptomatic urinary tract infection 2-patient with multiple antibiotic ALLERGIES that would limit the number of antibiotic safe to use 3-renal insufficiency high risk of nephrotoxicity from IV Bactrim 4-patient urine culture have been finalized with an E. coli there is a sensitive pathogen patient is currently on IV Azactam because of her multiple antibiotic allergies to continue Dictation was produced using [employer] dictation software. please excuse any grammatical, word or spelling errors. Time with Patient: Less than 30
--- NOTE | 2023-09-19 15:10 | P.PN ---
Subjective Progress Note Date: 09/19/23 Principal diagnosis: Reason for follow-up is UTI with multiple antibiotic allergies Patient is a 73-year-old female with a past medical history significant for atrial fibrillation hyperlipidemia diabetes mellitus heart failure with patient has been brought to the hospital for evaluation of increasing shortness of breath fatigue and noticed to have some blood in the u rine concerning for symptomatic UTI and this patient did have multiple antibiotic allergies. On today's evaluation that is 09/19/2023,the patient denies any fever or any chills, patient is breathing comfortably on room air, the patient denies chest pain shortness of breath and no significant cough, patient denies abdominal pain, no nausea vomiting or diarrhea. Patient denies having any new symptoms currently waiting for EGD and colonoscopy. Patient white count 6.06, creatinine is 1.7 Objective - Vital Signs Vital signs: Vital Signs Temp 98.3 F 09/19/23 07:30 Pulse 58 L 09/19/23 07:30 Resp 18 09/19/23 07:30 BP 117/72 09/19/23 07:30 Pulse Ox 97 09/19/23 07:30 FiO2 Intake & Output 09/18/23 09/19/23 09/19/23 18:59 06:59 18:59 Intake Total 100 Balance 100 Intake: IV 100 Other: # Voids 5 6 # Bowel Movements 4 12 - Exam GENERAL DESCRIPTION: An elderly female up in the chair in no distress RESPIRATORY SYSTEM: Unlabored breathing , decreased breath sounds at bases HEART: S1 S2 regular rate and rhythm , ABDOMEN: Soft , no tenderness EXTREMITIES: No edema feet - Labs CBC & Chem 7: 09/19/23 03:42 09/19/23 03:42 Labs: Abnormal Lab Results - Last 24 Hours (Table) 09/18/23 09/18/23 09/19/23 Range/Units 16:30 20:33 03:42 RBC (4.10-5.20) X 10*6/uL Hgb (12.0-15.0) g/dL Hct (37.2-46.3) % MCHC (32.0-37.0) g/dL RDW (11.5-14.5) % Eosinophils # (0.04-0.35) X 10*3/uL NRBC/100 WBC Diff (0.00-0.01) X 10*3/uL BUN 37.2 H (9.0-27.0) mg/dL Creatinine 1.7 H (0.6-1.5) mg/dL Est GFR (CKD-EPI) 32 L (>=60) BUN/Creatinine Ratio 21.88 H (12.00-20.00) Ratio Glucose 137 H (70-110) mg/dL POC Glucose (mg/dL) 172 H 152 H (70-110) mg/dL 09/19/23 09/19/23 09/19/23 Range/Units 03:42 05:44 11:46 RBC 3.70 L (4.10-5.20) X 10*6/uL Hgb 10.9 L (12.0-15.0) g/dL Hct 34.4 L (37.2-46.3) % MCHC 31.7 L (32.0-37.0) g/dL RDW 15.8 H (11.5-14.5) % Eosinophils # 0.37 H (0.04-0.35) X 10*3/uL NRBC/100 WBC Diff 0.02 H (0.00-0.01) X 10*3/uL BUN (9.0-27.0) mg/dL Creatinine (0.6-1.5) mg/dL Est GFR (CKD-EPI) (>=60) BUN/Creatinine Ratio (12.00-20.00) Ratio Glucose (70-110) mg/dL POC Glucose (mg/dL) 141 H 171 H (70-110) mg/dL Assessment and Plan (1) Allergy to multiple antibiotics Current Visit: Yes Status: Acute Code(s): Z88.1 - ALLERGY STATUS TO OTHER ANTIBIOTIC AGENTS SNOMED Code(s): 077998034 (2) Urinary tract infection Current Visit: Yes Status: Acute Code(s): N39.0 - URINARY TRACT INFECTION, SITE NOT SPECIFIED SNOMED Code(s): 48323501 Plan: 1patient presenting to the hospital with weakness increasing shortness of breath, patient did have a positive UA and apparently did have a blood in the urine concerning for symptomatic urinary tract infection 2-patient with multiple antibiotic ALLERGIES that would limit the number of antibiotic safe to use 3-renal insufficiency high risk of nephrotoxicity from IV Bactrim 4-patient urine culture have been finalized with an Bakari coli there is a sensitive pathogen patient is currently on IV Azactam because of her multiple antibiotic allergies 5-keeping in mind her kidney function patient may not be able to tolerate oral Bactrim DS which may have been the only oral option available hence recommend no antibiotic on discharge Dictation was produced using [employer] dictation software. please excuse any grammatical, word or spelling errors. Time with Patient: Less than 30
[2023-09-19 17:09] LABS: Glucose,Whole Blood 195 mg/dL (70-110)
[2023-09-19 20:01] LABS: Glucose,Whole Blood 159 mg/dL (70-110)
[2023-09-20 06:04] LABS: Glucose,Whole Blood 188 mg/dL (70-110)
[2023-09-20 09:11] LABS: Glucose,Whole Blood 283 mg/dL (70-110)
[2023-09-20] MEDS: FUROSEMIDE 40 MG TAB PO SCH (09:11)
--- NOTE | 2023-09-20 09:31 | P.PN ---
Subjective HISTORY OF PRESENT ILLNESS: The patient is a pleasant 73-year-old female patient with a past medical history significant for coronary artery disease with a prior stenting as well as permanent atrial fibrillation and permanent pacemaker after AV marck ablation as well as multiple comorbid conditions was admitted to the hospital with symptoms consistent with heart failure as well as hematuria. Oral anticoagulation currently is on hold. September 16, 2023 The patient was seen and evaluated this morning. She is feeling somewhat better. She continues to have some shortness of breath and bilateral lower extremities edema and she continues to be on Lasix IV twice daily echo still pending. She continues to be in atrial fibrillation which is permanent with controlled heart rate. Oral anticoagulation is on hold at this point in the light of hematuria. The hematuria is currently under investigation. The examination is remarkable for regular rhythm with a systolic murmur at the apical area and clear breathing sounds bilaterally and no carotid bruit and no lower extremities edema noted September 17, 2023 The patient was seen and evaluated this morning which she is feeling somewhat better. The edema has improved and the shortness of breath has improved. She continues to be on Lasix IV. Oral anticoagulation continues to be on hold. Also gastrointestinal bleeding to be ruled out. From the cardiac standpoint of view I would continue the current medical regimen. Examination is remarkable for diminished breathing sounds bilaterally and regular rate and rhythm with mild bilateral lower extremities edema 09/18/2023 Patient examined this morning. Patient is sitting up in the chair. Patient reports improvement in her shortness of breath. She denies chest pain or pressure. She remains on IV Lasix. Creatinine today 2.1. 1. 7 on admission. General surgery has evaluated the patient and plan is for endoscopy tomorrow. Echocardiogram completed revealing ejection fraction 40 to 45%, mild to moderate MS, moderate MR, moderate TR, and moderate pulmonary hypertension 09/19/2023 Patient examined this morning at the bedside. Patient is sitting up in the chair. Patient denies chest pain or pressure. She denies shortness of breath. Patient's Lasix was discontinued yesterday secondary to worsening creatinine. It has improved today at 1.7. She is scheduled to undergo endoscopy today. 09/20/2023 Patient examined this morning. She is sitting up in the chair. She is status post EGD and colonoscopy with no active bleeding noted. She denies any chest pain or pressure. She denies any shortness of breath. Vital signs are stable. She has been transition to oral Lasix. Kidney function this morning is currently pending. PHYSICAL EXAM: VITAL SIGNS: Reviewed. GENERAL: Well-developed in no acute distress. NECK: Supple. No JVD or thyromegaly LUNGS: Respirations even and unlabored. Lungs essentially clear to auscultation bilaterally. HEART: Regular rate and rhythm. S1 and S2 heard. EXTREMITIES: Normal range of motion. No clubbing or cyanosis. Peripheral pulses intact. No lower extremity edema ASSESSMENT: Hematuria Bright red blood per rectum Anemia, suspect acute blood loss Acute on chronic heart failure with reduced EF, 40 to 45% Cute kidney injury Coronary artery disease with previous PCI Permanent atrial fibrillation History of AV marck ablation History of permanent pacemaker implantation Hypertension Hyperlipidemia Diabetes PLAN: Continue current cardiac medications Resume anticoagulation when okay with general surgery No further inpatient recommendations from a cardiac standpoint We will sign off. Please reconsult if needed. Nurse practitioner note has been reviewed by physician. Signing provider agrees with the documented findings, assessment, and plan of care documented by [facility] as a scribe. Objective - Vital Signs Vital signs: Vital Signs Temp 97.8 F 09/20/23 07:13 Pulse 58 L 09/20/23 07:13 Resp 17 09/20/23 07:13 BP 149/75 09/20/23 07:13 Pulse Ox 98 09/20/23 07:13 FiO2 Intake & Output 09/19/23 09/20/23 09/20/23 18:59 06:59 18:59 Intake Total 1504 Balance 1504 Intake: IV 100 Intake, IV Titration 450 Amount Aztreonam 1 gm In Sodium 50 Chloride 0.9% 50 ml @ 16. 67 mls/hr IVPB Q8H [facility] Rx #:[id number] Dextrose 5%-0.45% NaCl 1, 400 000 ml @ 50 mls/hr IV . Q20H [facility] Rx#:[id number] Oral 954 Other: # Voids 3 2 # Bowel Movements 2 - Labs CBC & Chem 7: 09/19/23 03:42 09/19/23 03:42 Labs: Abnormal Lab Results - Last 24 Hours (Table) 09/19/23 09/19/23 09/19/23 Range/Units 11:46 16:57 19:59 POC Glucose (mg/dL) 171 H 195 H 159 H (70-110) mg/dL 09/20/23 09/20/23 Range/Units 06:02 09:09 POC Glucose (mg/dL) 188 H 283 H (70-110) mg/dL Microbiology - Last 24 Hours (Table) 09/14/23 19:22 Blood Culture - Final Blood
[2023-09-20 10:42] LABS: Basophils # (A) 0.03 X 10*3/uL (0.00-0.10); Basophils % (A) 0.5 %; Eosinophils # (A) 0.21 X 10*3/uL (0.04-0.35); Eosinophils % (A) 3.3 %; HCT 35.4 % (37.2-46.3); HGB 10.9 g/dL (12.0-15.0); Lymphocytes # (A) 1.41 X 10*3/uL (0.90-5.00); Lymphocytes % (A) 22.1 %; MCH 29.6 pg (27.0-32.0); MCHC 30.8 g/dL (32.0-37.0); MCV 96.2 FL (80.0-97.0); Mean Platelet Volume 11.1 FL (9.5-12.2); Monocytes % (A) 12.6 %; NRBC Per 100 WBC 0 X 10*3/uL (0.00-0.01); Neutrophils % (A) 61.2 %; Platelet Count 240 X 10*3/uL (140-440); RBC 3.68 X 10*6/uL (4.10-5.20); RDW 15.8 % (11.5-14.5); WBC 6.37 X 10*3/uL (4.50-10.00)
[2023-09-20 11:09] LABS: BUN/Creat Ratio 21.12 Ratio (12.00-20.00); Blood Urea Nitrogen 33.8 mg/dL (9.0-27.0); Calcium 8.8 mg/dL (8.7-10.3); Carbon Dioxide 24.7 mmol/L (21.6-31.8); Chloride 104 mmol/L (96-109); Glucose 181 mg/dL (70-110); Potassium 4.5 mmol/L (3.5-5.5); Sodium 140 mmol/L (135-145)
[2023-09-20 11:26] LABS: Glucose,Whole Blood 214 mg/dL (70-110)
--- NOTE | 2023-09-20 14:08 | P.PN ---
Subjective Progress Note Date: 09/20/23 CHIEF COMPLAINT: GI bleed HISTORY OF PRESENT ILLNESS: Patient Is Status Post EGD and Colonoscopy with polypectomy. Results Reported Patient reports gastritis, GERD, hiatal hernia, severe sigmoid diverticulosis, rectal adenoma. Patient denies abdominal pain. She denies any further blood in her stool. She denies any nausea or vomiting. Vital stable. Hemoglobin stable at 10.9 PHYSICAL EXAM: VITAL SIGNS: Reviewed GENERAL: Well-developed in no acute distress. HEENT: No sclera icterus. Extraocular movements grossly intact. Moist buccal mucosa. Head is atraumatic, normocephalic. Hears conversational speech. No nasal drainage. NECK: Supple without lymphadenopathy. CHEST: Non-labored respirations and equal bilateral excursions. CARDIOVASCULAR: Palpable 2+ radial pulses. ABDOMEN: Soft. Nondistended. Nontender. MUSCULOSKELETAL: No clubbing or cyanosis. NEUROLOGIC: No focal or lateralizing signs. Cranial nerves II through XII grossly intact. PSYCH: Appropriate affect. Alert and oriented to person, place and time. SKIN: Well perfused. Good skin turgor. ASSESSMENT: 1. Suspected diverticular bleed causing an acute GI bleed with bright red blood per rectum. Now resolved. Status post EGD and colonoscopy with no evidence of active bleeding PLAN: -Patient can be discharged from surgical standpoint when medically cleared -Okay to resume anticoagulation tomorrow, 09/21/2023 -Continue regular diet -Recommend 25 to 30 g of fiber for sigmoid diverticulosis -Start PPI for gastritis Physician Coiler note has been reviewed by physician. Signing provider agrees with the documented findings, assessment, and plan of care. Objective - Vital Signs Vital signs: Vital Signs Temp 97.8 F 09/20/23 07:13 Pulse 58 L 09/20/23 07:13 Resp 17 09/20/23 07:13 BP 149/75 09/20/23 07:13 Pulse Ox 98 09/20/23 07:13 FiO2 Intake & Output 09/19/23 09/20/23 09/20/23 18:59 06:59 18:59 Intake Total 1504 Balance 1504 Weight 99.79 kg Intake: IV 100 Intake, IV Titration 450 Amount Aztreonam 1 gm In Sodium 50 Chloride 0.9% 50 ml @ 16. 67 mls/hr IVPB Q8H [facility] Rx #:[id number] Dextrose 5%-0.45% NaCl 1, 400 000 ml @ 50 mls/hr IV . Q20H [facility] Rx#:[id number] Oral 954 Other: # Voids 3 2 # Bowel Movements 2 - Labs CBC & Chem 7: 09/20/23 07:00 09/20/23 07:00 Labs: Abnormal Lab Results - Last 24 Hours (Table) 09/19/23 09/19/23 09/20/23 Range/Units 16:57 19:59 06:02 RBC (4.10-5.20) X 10*6/uL Hgb (12.0-15.0) g/dL Hct (37.2-46.3) % MCHC (32.0-37.0) g/dL RDW (11.5-14.5) % BUN (9.0-27.0) mg/dL Creatinine (0.6-1.5) mg/dL Est GFR (CKD-EPI) (>=60) BUN/Creatinine Ratio (12.00-20.00) Ratio Glucose (70-110) mg/dL POC Glucose (mg/dL) 195 H 159 H 188 H (70-110) mg/dL 09/20/23 09/20/23 09/20/23 Range/Units 07:00 07:00 09:09 RBC 3.68 L (4.10-5.20) X 10*6/uL Hgb 10.9 L (12.0-15.0) g/dL Hct 35.4 L (37.2-46.3) % MCHC 30.8 L (32.0-37.0) g/dL RDW 15.8 H (11.5-14.5) % BUN 33.8 H (9.0-27.0) mg/dL Creatinine 1.6 H (0.6-1.5) mg/dL Est GFR (CKD-EPI) 34 L (>=60) BUN/Creatinine Ratio 21.12 H (12.00-20.00) Ratio Glucose 181 H (70-110) mg/dL POC Glucose (mg/dL) 283 H (70-110) mg/dL 09/20/23 Range/Units 11:24 RBC (4.10-5.20) X 10*6/uL Hgb (12.0-15.0) g/dL Hct (37.2-46.3) % MCHC (32.0-37.0) g/dL RDW (11.5-14.5) % BUN (9.0-27.0) mg/dL Creatinine (0.6-1.5) mg/dL Est GFR (CKD-EPI) (>=60) BUN/Creatinine Ratio (12.00-20.00) Ratio Glucose (70-110) mg/dL POC Glucose (mg/dL) 214 H (70-110) mg/dL Microbiology - Last 24 Hours (Table) 09/14/23 19:22 Blood Culture - Final Blood
--- NOTE | 2023-09-20 14:14 | PN ---
PROGRESS NOTE DATE OF SERVICE: 09/20/2023 SUBJECTIVE: This is a 73-year-old woman who was admitted with CHF acute exacerbation, and multiple UTI with multiple antibiotic allergies on empiric antibiotics, E coli grown from the culture. There is no history of any fever, rigors, or chills. The patient complains of weakness. OBJECTIVE: VITAL SIGNS: Pulse is 58, blood pressure ntd respirations 17. CHEST: Few scattered rhonchi and crackles. ABDOMEN: Soft. NERVOUS SYSTEM: Diffusely weak. LABORATORY DATA: Hemoglobin 10.8. Rest of the labs are reviewed. ASSESSMENT: 1. CHF acute exacerbation with acute on chronic systolic dysfunction, ejection fraction 45%, present on admission. 2. UTI with hematuria with E coli. 3. Multiple antibiotic allergies. 4. History of GI bleed. 5. Chronic atrial fibrillation. 6. Diabetes mellitus, type 2. 7. Multiple medical issues. RECOMMENDATIONS: Recommended to continue current management, continue symptomatic treatment, otherwise at this time I will recommend continue with current medications. Resume the home medications and monitor blood sugars closely. Guarded prognosis. Further recommendations to follow. MMODL / IJN: [id number] / [place]
[2023-09-20 14:24] VITALS: BMI 35.5
[2023-09-20] MEDS: PANTOPRAZOLE 40 MG TABLET PO SCH (15:24)
--- NOTE | 2023-09-20 16:15 | P.PN ---
Subjective Progress Note Date: 09/20/23 Principal diagnosis: Reason for follow-up is UTI with multiple antibiotic allergies Patient is a 73-year-old female with a past medical history significant for atrial fibrillation hyperlipidemia diabetes mellitus heart failure with patient has been brought to the hospital for evaluation of increasing shortness of breath fatigue and noticed to have some blood in the u rine concerning for symptomatic UTI and this patient did have multiple antibiotic allergies. On today's evaluation that is 09/20/2023,the patient remains to be afebrile, patient is on room air not requiring supplemental oxygen and denies any shortness of breath no chest pain or cough.Patient denies having any nausea or vomiting, no abdominal pain and no diarrhea has been reported. Patient white count is 6.37, creatinine is 1.6 blood culture negative Objective - Vital Signs Vital signs: Vital Signs Temp 97.8 F 09/20/23 07:13 Pulse 58 L 09/20/23 07:13 Resp 17 09/20/23 07:13 BP 149/75 09/20/23 07:13 Pulse Ox 98 09/20/23 07:13 FiO2 Intake & Output 09/19/23 09/20/23 09/20/23 18:59 06:59 18:59 Intake Total 1504 Balance 1504 Intake: IV 100 Intake, IV Titration 450 Amount Aztreonam 1 gm In Sodium 50 Chloride 0.9% 50 ml @ 16. 67 mls/hr IVPB Q8H [facility] Rx #:[id number] Dextrose 5%-0.45% NaCl 1, 400 000 ml @ 50 mls/hr IV . Q20H [facility] Rx#:[id number] Oral 954 Other: # Voids 3 2 # Bowel Movements 2 - Exam GENERAL DESCRIPTION: An elderly female up in the chair in no distress RESPIRATORY SYSTEM: Unlabored breathing , decreased breath sounds at bases HEART: S1 S2 regular rate and rhythm , ABDOMEN: Soft , no tenderness EXTREMITIES: No edema feet - Labs CBC & Chem 7: 09/20/23 07:00 09/20/23 07:00 Labs: Abnormal Lab Results - Last 24 Hours (Table) 09/19/23 09/19/23 09/20/23 Range/Units 16:57 19:59 06:02 RBC (4.10-5.20) X 10*6/uL Hgb (12.0-15.0) g/dL Hct (37.2-46.3) % MCHC (32.0-37.0) g/dL RDW (11.5-14.5) % BUN (9.0-27.0) mg/dL Creatinine (0.6-1.5) mg/dL Est GFR (CKD-EPI) (>=60) BUN/Creatinine Ratio (12.00-20.00) Ratio Glucose (70-110) mg/dL POC Glucose (mg/dL) 195 H 159 H 188 H (70-110) mg/dL 09/20/23 09/20/23 09/20/23 Range/Units 07:00 07:00 09:09 RBC 3.68 L (4.10-5.20) X 10*6/uL Hgb 10.9 L (12.0-15.0) g/dL Hct 35.4 L (37.2-46.3) % MCHC 30.8 L (32.0-37.0) g/dL RDW 15.8 H (11.5-14.5) % BUN 33.8 H (9.0-27.0) mg/dL Creatinine 1.6 H (0.6-1.5) mg/dL Est GFR (CKD-EPI) 34 L (>=60) BUN/Creatinine Ratio 21.12 H (12.00-20.00) Ratio Glucose 181 H (70-110) mg/dL POC Glucose (mg/dL) 283 H (70-110) mg/dL 09/20/23 Range/Units 11:24 RBC (4.10-5.20) X 10*6/uL Hgb (12.0-15.0) g/dL Hct (37.2-46.3) % MCHC (32.0-37.0) g/dL RDW (11.5-14.5) % BUN (9.0-27.0) mg/dL Creatinine (0.6-1.5) mg/dL Est GFR (CKD-EPI) (>=60) BUN/Creatinine Ratio (12.00-20.00) Ratio Glucose (70-110) mg/dL POC Glucose (mg/dL) 214 H (70-110) mg/dL Microbiology - Last 24 Hours (Table) 09/14/23 19:22 Blood Culture - Final Blood Assessment and Plan (1) Allergy to multiple antibiotics Current Visit: Yes Status: Acute Code(s): Z88.1 - ALLERGY STATUS TO OTHER ANTIBIOTIC AGENTS SNOMED Code(s): 973864207 (2) Urinary tract infection Current Visit: Yes Status: Acute Code(s): N39.0 - URINARY TRACT INFECTION, SITE NOT SPECIFIED SNOMED Code(s): 88541335 Plan: 1patient presenting to the hospital with weakness increasing shortness of breath, patient did have a positive UA and apparently did have a blood in the urine concerning for symptomatic urinary tract infection 2-patient with multiple antibiotic ALLERGIES that would limit the number of a ntibiotic safe to use 3-renal insufficiency high risk of nephrotoxicity from IV Bactrim 4-patient urine culture have been finalized with an E. coli there is a sensitive pathogen patient is currently on IV Azactam because of her multiple antibiotic allergies we will continue while inpatient and discontinue on discharge Dictation was produced using [employer] dictation software. please excuse any gramma tical, word or spelling errors. Time with Patient: Less than 30
[2023-09-20 16:26] LABS: Glucose,Whole Blood 184 mg/dL (70-110)
[2023-09-20 20:40] LABS: Glucose,Whole Blood 294 mg/dL (70-110)
[2023-09-21 06:28] LABS: Glucose,Whole Blood 161 mg/dL (70-110)
[2023-09-21] MEDS: EDOXABAN TOSYLATE 30 MG TABLET PO SCH (08:01)
[2023-09-21 09:13] LABS: Glucose,Whole Blood 423 mg/dL (70-110)
[2023-09-21 09:17] LABS: Basophils # (A) 0.03 X 10*3/uL (0.00-0.10); Basophils % (A) 0.5 %; Eosinophils # (A) 0.26 X 10*3/uL (0.04-0.35); Eosinophils % (A) 4.3 %; HCT 32.5 % (37.2-46.3); HGB 10.3 g/dL (12.0-15.0); Lymphocytes # (A) 1.57 X 10*3/uL (0.90-5.00); Lymphocytes % (A) 25.7 %; MCH 29.6 pg (27.0-32.0); MCHC 31.7 g/dL (32.0-37.0); MCV 93.4 FL (80.0-97.0); Mean Platelet Volume 10.7 FL (9.5-12.2); Monocytes # (A) 0.69 X 10*3/uL (0.20-1.00); Monocytes % (A) 11.3 %; NRBC Per 100 WBC 0 X 10*3/uL (0.00-0.01); Neutrophils # (A) 3.54 X 10*3/uL (1.80-7.70); Neutrophils % (A) 57.9 %; Platelet Count 224 X 10*3/uL (140-440); RBC 3.48 X 10*6/uL (4.10-5.20); RDW 15.8 % (11.5-14.5); WBC 6.11 X 10*3/uL (4.50-10.00)
[2023-09-21 09:25] LABS: BUN/Creat Ratio 30.85 Ratio (12.00-20.00); Blood Urea Nitrogen 40.1 mg/dL (9.0-27.0); Calcium 8.6 mg/dL (8.7-10.3); Carbon Dioxide 22.7 mmol/L (21.6-31.8); Chloride 105 mmol/L (96-109); Glucose 187 mg/dL (70-110); Potassium 4.5 mmol/L (3.5-5.5); Sodium 140 mmol/L (135-145)
[2023-09-21] MEDS: MULTIVITAMINS, THERA 1 EACH TAB PO SCH (11:04)
[2023-09-21] MEDS: INSULIN DETEMIR (LEVEMIR) 100 UNIT/ML SYR SQ STA (12:16)
[2023-09-21] MEDS ORDERED: IBUPROFEN 200 MG TAB PO PRN (12:20)
[2023-09-21 12:26] LABS: Glucose,Whole Blood 266 mg/dL (70-110)
--- NOTE | 2023-09-21 13:55 | P.PN ---
Subjective Progress Note Date: 09/21/23 Principal diagnosis: Reason for follow-up is UTI with multiple antibiotic allergies Patient is a 73-year-old female with a past medical history significant for atrial fibrillation hyperlipidemia diabetes mellitus heart failure with patient has been brought to the hospital for evaluation of increasing shortness of breath fatigue and noticed to have some blood in the u rine concerning for symptomatic UTI and this patient did have multiple antibiotic allergies. On today's evaluation that is 09/21/2023, the patient continues to be afebrile, the patient is on room air and breathing comfortably, the Pt denies having any chest pain or cough, the patient denies having any abdominal pain no vomiting or any diarrhea has been reported by the nursing staff, patient complaining of elevated blood sugar and not feeling well today. Patient did have a white count of 6.1, creatinine is 1.3 Objective - Vital Signs Vital signs: Vital Signs Temp 97.5 F L 09/21/23 07:05 Pulse 61 09/21/23 07:05 Resp 20 09/21/23 07:05 BP 132/70 09/21/23 07:05 Pulse Ox 97 09/21/23 07:05 FiO2 Intake & Output 09/20/23 09/21/23 09/21/23 18:59 06:59 18:59 Weight 99.79 kg Other: # Voids 3 3 - Exam GENERAL DESCRIPTION: An elderly female up in the chair in no distress RESPIRATORY SYSTEM: Unlabored breathing , decreased breath sounds at bases HEART: S1 S2 regular rate and rhythm , ABDOMEN: Soft , no tenderness EXTREMITIES: No edema feet - Labs CBC & Chem 7: 09/21/23 05:54 09/21/23 05:54 Labs: Abnormal Lab Results - Last 24 Hours (Table) 09/20/23 09/20/23 09/20/23 Range/Units 07:00 07:00 11:24 RBC 3.68 L (4.10-5.20) X 10*6/uL Hgb 10.9 L (12.0-15.0) g/dL Hct 35.4 L (37.2-46.3) % MCHC 30.8 L (32.0-37.0) g/dL RDW 15.8 H (11.5-14.5) % BUN 33.8 H (9.0-27.0) mg/dL Creatinine 1.6 H (0.6-1.5) mg/dL Est GFR (CKD-EPI) 34 L (>=60) BUN/Creatinine Ratio 21.12 H (12.00-20.00) Ratio Glucose 181 H (70-110) mg/dL POC Glucose (mg/dL) 214 H (70-110) mg/dL 09/20/23 09/20/23 09/21/23 Range/Units 16:25 20:38 06:27 RBC (4.10-5.20) X 10*6/uL Hgb (12.0-15.0) g/dL Hct (37.2-46.3) % MCHC (32.0-37.0) g/dL RDW (11.5-14.5) % BUN (9.0-27.0) mg/dL Creatinine (0.6-1.5) mg/dL Est GFR (CKD-EPI) (>=60) BUN/Creatinine Ratio (12.00-20.00) Ratio Glucose (70-110) mg/dL POC Glucose (mg/dL) 184 H 294 H 161 H (70-110) mg/dL 09/21/23 Range/Units 09:12 RBC (4.10-5.20) X 10*6/uL Hgb (12.0-15.0) g/dL Hct (37.2-46.3) % MCHC (32.0-37.0) g/dL RDW (11.5-14.5) % BUN (9.0-27.0) mg/dL Creatinine (0.6-1.5) mg/dL Est GFR (CKD-EPI) (>=60) BUN/Creatinine Ratio (12.00-20.00) Ratio Glucose (70-110) mg/dL POC Glucose (mg/dL) 423 H (70-110) mg/dL Assessment and Plan (1) Allergy to multiple antibiotics Current Visit: Yes Status: Acute Code(s): Z88.1 - ALLERGY STATUS TO OTHER ANTIBIOTIC AGENTS SNOMED Code(s): 246045877 (2) Urinary tract infection Current Visit: Yes Status: Acute Code(s): N39.0 - URINARY TRACT INFECTION, SITE NOT SPECIFIED SNOMED Code(s): 59530659 Plan: 1patient presenting to the hospital with weakness increasing shortness of breath, patient did have a positive UA and apparently did have a blood in the urine concerning for symptomatic urinary tract infection 2-patient with multiple antibiotic ALLERGIES that would limit the number of antibiotic safe to use 3-renal insufficiency high risk of nephrotoxicity from IV Bactrim 4-patient urine culture have been finalized with an E. coli there is a sensitive pathogen patient is currently on IV Azactam because of her multiple antibiotic allergies and monitor clinical course closely Dictation was produced using [employer] dictation software. please excuse any grammatical, word or spelling errors. Time with Patient: Less than 30
[2023-09-21 16:50] LABS: Glucose,Whole Blood 193 mg/dL (70-110)
[2023-09-21 20:33] LABS: Glucose,Whole Blood 170 mg/dL (70-110)
[2023-09-21] MEDS: INSULIN DETEMIR (LEVEMIR) 100 UNIT/ML SYR SQ SCH (20:40)
--- NOTE | 2023-09-21 20:47 | PN ---
PROGRESS NOTE DATE OF SERVICE: 09/21/2023 This 73-year-old woman was admitted with CHF acute exacerbation, also had UTI. The patient is complaining of left antecubital pain, possibly some infected thrombophlebitis. The patient also had some chest pain, also last night, blood sugar was elevated. No chest pain. No fever. No cough. PHYSICAL EXAMINATION: VITAL SIGNS: Pulse is 60, blood pressure 113/60, respirations 24. CHEST: Clear to auscultation. CARDIOVASCULAR: S1, S2. ABDOMEN: Soft, nontender. NERVOUS SYSTEM: Nonfocal. LABORATORY DATA: Reviewed. ASSESSMENT: 1. Congestive heart failure acute exacerbation with acute on chronic systolic dysfunction, ejection fraction 45%, present on admission. 2. Urinary tract infection with hematuria with E coli. 3. Left antecubital thrombophlebitis. 4. Chest pain for evaluation, rule out myocardial infarction. 5. Multiple antibiotic allergies. 6. History of GI bleed. 7. Chronic atrial fibrillation. 8. Diabetes mellitus, type 2. 9. Multiple medical issues. RECOMMENDATIONS AND DISCUSSION: I recommend to continue current management and treatment otherwise. I would recommend Lantus b.i.d. and Lantus at night, and then I would recommend continue with Protonix. Repeat labs in the morning, otherwise, continue with Azactam. Closely follow with multiple consultants. Further recommendations to follow. MMODL / IJN: [id number] /
--- NOTE | 2023-09-21 22:59 | P.PN ---
Subjective Patient seen and evaluated at bed bedside. Patient doing well, no complaints. Objective - Vital Signs Vital signs: Vital Signs Temp 97.4 F L 09/21/23 20:24 Pulse 60 09/21/23 20:24 Resp 18 09/21/23 20:24 BP 149/81 09/21/23 20:24 Pulse Ox 98 09/21/23 20:24 FiO2 Intake & Output 09/21/23 09/21/23 09/22/23 06:59 18:59 06:59 Intake Total 50 Balance 50 Intake: Intake, IV Titration 50 Amount Aztreonam 1 gm In Sodium 50 Chloride 0.9% 50 ml @ 16. 67 mls/hr IVPB Q8H [facility] Rx #:[id number] Other: # Voids 3 - Constitutional General appearance: Present: cooperative - EENT Eyes: Present: PERRLA ENT: Present: normal oropharynx - Cardiovascular Rhythm: regular - Gastrointestinal General gastrointestinal: Present: normal bowel sounds. Absent: distended, tenderness - Labs CBC & Chem 7: 09/21/23 05:54 09/21/23 05:54 Labs: Abnormal Lab Results - Last 24 Hours (Table) 09/21/23 09/21/23 09/21/23 Range/Units 05:54 05:54 06:27 RBC 3.48 L (4.10-5.20) X 10*6/uL Hgb 10.3 L (12.0-15.0) g/dL Hct 32.5 L (37.2-46.3) % MCHC 31.7 L (32.0-37.0) g/dL RDW 15.8 H (11.5-14.5) % Anion Gap 12.30 H (4.00-12.00) mmol/L BUN 40.1 H (9.0-27.0) mg/dL Est GFR (CKD-EPI) 44 L (>=60) BUN/Creatinine Ratio 30.85 H (12.00-20.00) Ratio Glucose 187 H (70-110) mg/dL POC Glucose (mg/dL) 161 H (70-110) mg/dL Calcium 8.6 L (8.7-10.3) mg/dL 09/21/23 09/21/23 09/21/23 Range/Units 09:12 12:25 16:48 RBC (4.10-5.20) X 10*6/uL Hgb (12.0-15.0) g/dL Hct (37.2-46.3) % MCHC (32.0-37.0) g/dL RDW (11.5-14.5) % Anion Gap (4.00-12.00) mmol/L BUN (9.0-27.0) mg/dL Est GFR (CKD-EPI) (>=60) BUN/Creatinine Ratio (12.00-20.00) Ratio Glucose (70-110) mg/dL POC Glucose (mg/dL) 423 H 266 H 193 H (70-110) mg/dL Calcium (8.7-10.3) mg/dL 09/21/23 Range/Units 20:27 RBC (4.10-5.20) X 10*6/uL Hgb (12.0-15.0) g/dL Hct (37.2-46.3) % MCHC (32.0-37.0) g/dL RDW (11.5-14.5) % Anion Gap (4.00-12.00) mmol/L BUN (9.0-27.0) mg/dL Est GFR (CKD-EPI) (>=60) BUN/Creatinine Ratio (12.00-20.00) Ratio Glucose (70-110) mg/dL POC Glucose (mg/dL) 170 H (70-110) mg/dL Calcium (8.7-10.3) mg/dL Assessment and Plan Assessment: ASSESSMENT: 1. Suspected diverticular bleed causing an acute GI bleed with bright red blood per rectum. Now resolved. Status post EGD and colonoscopy with no evidence of active bleeding PLAN: -Patient can be discharged from surgical standpoint when medically cleared -Continue regular diet -Recommend 25 to 30 g of fiber for sigmoid diverticulosis -Start PPI for gastritis
[2023-09-22 05:52] LABS: Glucose,Whole Blood 155 mg/dL (70-110)
[2023-09-22 11:03] LABS: Basophils # (A) 0.03 X 10*3/uL (0.00-0.10); Basophils % (A) 0.5 %; Eosinophils # (A) 0.32 X 10*3/uL (0.04-0.35); Eosinophils % (A) 5.3 %; HCT 34.1 % (37.2-46.3); HGB 10.8 g/dL (12.0-15.0); Lymphocytes # (A) 1.45 X 10*3/uL (0.90-5.00); Lymphocytes % (A) 23.8 %; MCH 29.7 pg (27.0-32.0); MCHC 31.7 g/dL (32.0-37.0); MCV 93.7 FL (80.0-97.0); Mean Platelet Volume 10.8 FL (9.5-12.2); Monocytes # (A) 0.55 X 10*3/uL (0.20-1.00); NRBC Per 100 WBC 0 X 10*3/uL (0.00-0.01); Neutrophils % (A) 60.9 %; Platelet Count 234 X 10*3/uL (140-440); RBC 3.64 X 10*6/uL (4.10-5.20); RDW 15.7 % (11.5-14.5); WBC 6.08 X 10*3/uL (4.50-10.00)
[2023-09-22 11:28] LABS: BUN/Creat Ratio 30.31 Ratio (12.00-20.00); Blood Urea Nitrogen 39.4 mg/dL (9.0-27.0); Calcium 8.7 mg/dL (8.7-10.3); Carbon Dioxide 23.2 mmol/L (21.6-31.8); Chloride 106 mmol/L (96-109); Glucose 147 mg/dL (70-110); Potassium 4.6 mmol/L (3.5-5.5); Sodium 141 mmol/L (135-145)
--- NOTE | 2023-09-22 11:33 | P.PN ---
Subjective Progress Note Date: 09/22/23 patient is without any new complaints. She's had no further GI bleed. On exam vital signs appear stable. Abdomen soft. Suspected diverticular bleed. Through this area has been no evidence of repeat bleeding. Patient appears to be clinically stable. Objective - Vital Signs Vital signs: Vital Signs Temp 97.8 F 09/22/23 07:10 Pulse 60 09/22/23 07:10 Resp 16 09/22/23 07:10 BP 114/70 09/22/23 07:10 Pulse Ox 96 09/22/23 07:10 FiO2 Intake & Output 09/21/23 09/22/23 09/22/23 18:59 06:59 18:59 Intake Total 50 Balance 50 Intake: Intake, IV Titration 50 Amount Aztreonam 1 gm In Sodium 50 Chloride 0.9% 50 ml @ 16. 67 mls/hr IVPB Q8H [facility] Rx #:[id number] Other: # Voids 2 - Labs CBC & Chem 7: 09/22/23 06:20 09/22/23 06:20 Labs: Abnormal Lab Results - Last 24 Hours (Table) 09/21/23 09/21/23 09/21/23 Range/Units 12:25 16:48 20:27 RBC (4.10-5.20) X 10*6/uL Hgb (12.0-15.0) g/dL Hct (37.2-46.3) % MCHC (32.0-37.0) g/dL RDW (11.5-14.5) % BUN (9.0-27.0) mg/dL Est GFR (CKD-EPI) (>=60) BUN/Creatinine Ratio (12.00-20.00) Ratio Glucose (70-110) mg/dL POC Glucose (mg/dL) 266 H 193 H 170 H (70-110) mg/dL 09/22/23 09/22/23 09/22/23 Range/Units 05:51 06:20 06:20 RBC 3.64 L (4.10-5.20) X 10*6/uL Hgb 10.8 L (12.0-15.0) g/dL Hct 34.1 L (37.2-46.3) % MCHC 31.7 L (32.0-37.0) g/dL RDW 15.7 H (11.5-14.5) % BUN 39.4 H (9.0-27.0) mg/dL Est GFR (CKD-EPI) 44 L (>=60) BUN/Creatinine Ratio 30.31 H (12.00-20.00) Ratio Glucose 147 H (70-110) mg/dL POC Glucose (mg/dL) 155 H (70-110) mg/dL
[2023-09-22 11:55] LABS: Glucose,Whole Blood 211 mg/dL (70-110)
--- NOTE | 2023-09-22 16:03 | XR ---
EXAMINATION TYPE: XR chest 1V portable DATE OF EXAM: 09/22/2023 COMPARISON: 09/14/2023 HISTORY: CHF TECHNIQUE: Single frontal view of the chest is obtained. FINDINGS: There is a 2-lead cardiac pacemaker unchanged in position. Heart size and pulmonary vasculature are normal for the technique. There is no airspace consolidation. There is no pleural effusion or pneumothorax. The osseous structures are intact IMPRESSION: No acute process.
[2023-09-22 16:47] LABS: Glucose,Whole Blood 279 mg/dL (70-110)
--- NOTE | 2023-09-22 17:41 | US ---
EXAMINATION TYPE: US venous doppler duplex UE LT DATE OF EXAM: 09/22/2023 COMPARISON: NONE CLINICAL INDICATION: Female, 73 years old with history of swelling; Hx left IV superior to antecub re gion, has decreased in size per patient. Painful. SIDE PERFORMED: Left Left Arm: Negative for DVT. POSITIVE for SVT in basilic at patients area of concern. IMPRESSION: 1. Positive superficial thrombophlebitis of the basilic vein in the patient's area of concern. 2. No evidence for deep vein thrombosis.
[2023-09-22 21:04] LABS: Glucose,Whole Blood 213 mg/dL (70-110)
--- NOTE | 2023-09-22 21:53 | PN ---
PROGRESS NOTE DATE OF SERVICE: 09/22/2023 SUBJECTIVE: This 73-year-old woman was admitted with CHF exacerbation, also had UTI as well as uncontrolled blood sugars also. No chest pain. No palpitations. No fever. EXAM: VITAL SIGNS: Pulse is 54, blood pressure 130/70, respirations 17. CHEST: Scattered rhonchi. ABDOMEN: Soft. NERVOUS SYSTEM: Nonfocal. LABORATORY DATA: Hemoglobin 10.8. Rest of the labs are noted. ASSESSMENT: 1. Congestive heart failure with acute exacerbation with acute on chronic systolic dysfunction, ejection fraction 45%, present on admission. 2. Urinary tract infection with hematuria and Escherichia coli. 3. Left antecubital thrombophlebitis. 4. Chest pain, improved. 5. Multiple antibiotic allergies. 6. History of gastrointestinal bleed. 7. Chronic atrial fibrillation. 8. Diabetes mellitus, type 2. 9. Multiple medical issues. RECOMMENDATIONS: Continue current management and symptomatic treatment. Troponins have been negative. I would recommend repeat chest x-ray. Continue with current medications. Repeat labs. Further recommendations to follow. Possible discharge in the next 24 hours. MMODL / IJN: [id number] /
[2023-09-23 02:55] VITALS: RESP 18
[2023-09-23 05:59] LABS: Glucose,Whole Blood 210 mg/dL (70-110)
[2023-09-23 09:04] LABS: Basophils # (A) 0.02 X 10*3/uL (0.00-0.10); Basophils % (A) 0.3 %; Eosinophils % (A) 6.8 %; HCT 33.2 % (37.2-46.3); HGB 10.5 g/dL (12.0-15.0); Lymphocytes # (A) 1.51 X 10*3/uL (0.90-5.00); Lymphocytes % (A) 20.6 %; MCH 29.2 pg (27.0-32.0); MCHC 31.6 g/dL (32.0-37.0); MCV 92.5 FL (80.0-97.0); Mean Platelet Volume 10.8 FL (9.5-12.2); Monocytes # (A) 0.82 X 10*3/uL (0.20-1.00); Monocytes % (A) 11.2 %; NRBC Per 100 WBC 0 X 10*3/uL (0.00-0.01); Neutrophils # (A) 4.45 X 10*3/uL (1.80-7.70); Neutrophils % (A) 60.8 %; Platelet Count 228 X 10*3/uL (140-440); RBC 3.59 X 10*6/uL (4.10-5.20); RDW 15.7 % (11.5-14.5); WBC 7.32 X 10*3/uL (4.50-10.00)
[2023-09-23 09:13] LABS: BUN/Creat Ratio 34.58 Ratio (12.00-20.00); Blood Urea Nitrogen 41.5 mg/dL (9.0-27.0); Calcium 8.6 mg/dL (8.7-10.3); Carbon Dioxide 22.1 mmol/L (21.6-31.8); Chloride 104 mmol/L (96-109); Glucose 211 mg/dL (70-110); Potassium 4.5 mmol/L (3.5-5.5); Sodium 138 mmol/L (135-145)
[2023-09-23 10:18] VITALS: BP 133/77; PULSE 58; TEMP 99.4
[2023-09-23 11:47] LABS: Glucose,Whole Blood 300 mg/dL (70-110)
--- NOTE | 2023-09-24 10:16 | P.DS ---
Providers Date of admission: 09/14/23 17:38 Expected date of discharge: 09/23/23 Attending physician: Nixon Christopher Consults: 09/14/23 19:11 Consult Physician Routine Consulting Provider: Merrill Godfrey Consult Reason/Comments: UTI, multiple drug allergies Do you want consulting provider notified?: Yes 09/15/23 06:55 Consult Physician Routine Consulting Provider: Juanpablo Yanes Consult Reason/Comments: Hematuria Do you want consulting provider notified?: Yes 09/15/23 08:48 Consult Physician Routine Consulting Provider: Zelda Lester Consult Reason/Comments: Vaginal bleeding Do you want consulting provider notified?: Yes 09/16/23 10:50 Consult Physician Routine Consulting Provider: Ro Gonzalez Consult Reason/Comments: suspected rectal bleeding, evaluate for colonoscopy Do you want consulting provider notified?: Yes Primary care physician: Edgardo Juarez Hospital Course: Final diagnosis Congestive heart failure with acute exacerbation with acute on chronic systolic dysfunction, EF is 45% Urinary tract infection with hematuria, present on admission with cultures finalized as E. coli with sensitivities Left antecubital thrombophlebitis, Doppler confirms superficial venous thrombosis, DVT excluded secondary to intravenous catheter Chest pain, improved Chronic atrial fibrillation, status post [employer] pacemaker diabetes mellitus, type 2 insulin dependant, uncontrolled with hyperglycemia obesity with a bmi of 35.5 History of chronic venous stasis ulcers of the left lower extremity History of CAD with stenting GI prophylaxis DVT prophylaxis Full code Discharge disposition Patient is being discharged in a stable condition with guarded prognosis to [facility] where she resides . Patient will follow-up with Dr. Juarez in the outpatient setting upon discharge. Patient is to continue with current medications and outpatient follow up with cardiology as scheduled. Total time taken is greater than 35 minutes. Hospital course This is a 73-year-old female who was recently admitted with chf exacerbation being closely monitored. Patient also noted to have UTI on admission. Cultures finalized as Ecoli with sensitivities and has received adequate IV abx per infectious disease and will not require further antibiotics on discharge. Patient also being monitored by cardiology making adjustments to medications and maintained on diuresis showing improvements and is sitting up on room air and denies any worsening shortness of breath. Patient did have an IV in the left antecubital fossa with noted redness and induration with sensitivity underwent venous Doppler which was negative for DVT although did show superficial venous thrombosis and will continue with warm heating compresses and close outpatient follow-up. Patient also noted to have a slight rash on the chest likely secondary to the EKG stickers for telemetry monitoring. Patient will continue with as needed Benadryl and instructed to follow-up with primary care provider this week for further evaluation. Recommend repeat labs in the outpatient setting of CBC, BMP, magnesium in the next few days to monitor kidney functions. Patient has been cleared by consultations and will be returning to [facility] where she resides. Patient again instructed to follow-up with cardiology this week. Please refer to other consultation notes for further HPI. Currently no reports of chest pain, shortness of breath, or palpitations. Patient is afebrile. No reports of nausea or vomiting and patient is tolerating diet. Patient will be going to [facility] today. Guarded prognosis given patient's significant comorbidities Physical exam: Gen: This is a 73-year-old female who is awake, alert and oriented x 3, well- developed, well-nourished, obese HEENT: Head is atraumatic, normocephalic. Pupils equal, round. Sclerae is anicteric. NECK: Supple. No JVD. No lymphadenopathy. No thyromegaly. LUNGS: Diminished breath sounds bilaterally otherwise clear to auscultation. No wheezes or rhonchi. No intercostal retractions. HEART: S1, S2 are muffled, irregular ABDOMEN: Soft. Obese bowel sounds are present. No masses. No tenderness. EXTREMITIES: No pedal edema. No calf tenderness. Left antecubital fossa area with minimal redness, significantly improved from yesterday NEUROLOGICAL: Patient is awake, alert and oriented x3. Cranial nerves 2 through 12 are grossly intact. Please refer to medication reconciliation sheet for a list of medications. The impression and plan of care has been dictated by Lara Poe, Nurse Practitioner as directed. Dr. Valentin MD I have performed a history and examination and MDM of this patient, discussed the same with the dictator, and agree with the dictator's assessment and plan as written ,documented as a scribe. Based on total visit time, I have performed more than 50% of the visit. Patient Condition at Discharge: Stable Plan - Discharge Summary Discharge Rx Participant: No New Discharge Prescriptions: New diphenhydrAMINE [Benadryl] 25 mg PO BID PRN #20 capsule PRN Reason: Itching diphenhydrAMINE & Zinc Cream [Benadryl Cream] 1 applic TOPICAL BID PRN #28 gm PRN Reason: Itching Edoxaban Tosylate [Savaysa] 30 mg PO DAILY #30 tab Multivitamins, Thera [Multivitamin (formulary)] 1 each PO DAILY@1200 #30 tab Acetaminophen Tab [Tylenol] 650 mg PO Q6HR PRN tab PRN Reason: Fever and/ or Mild Pain Continue Atorvastatin [Lipitor] 40 mg PO HS metFORMIN HCL [Glucophage] 850 mg PO TID Insulin Glargine,Hum.rec.anlog [Toujeo Solostar] 10 units SQ HS Furosemide [Lasix] 40 mg PO BID Ferrous Sulfate [Iron (65 MG Elemental)] 325 mg PO BID allopurinoL [Zyloprim] 100 mg PO DAILY calcitrioL 0.25 mcg PO Q48H Sacubitril/Valsartan [Entresto 24 mg-26 mg Tablet] 1 tab PO BID Cholecalciferol [Vitamin D3 (25 Mcg = 1000 Iu)] 25 mcg PO HS Metoprolol Tartrate [Lopressor] 50 mg PO BID Brimonidine Tartrate [[facility]agan [facility]] 1 drop BOTH EYES BID Dapagliflozin Propanediol [Farxiga] 10 mg PO DAILY Discontinued Edoxaban Tosylate [Savaysa] 60 mg PO HS Discharge Medication List Atorvastatin [Lipitor] 40 mg PO HS 10/22/17 [History] metFORMIN HCL [Glucophage] 850 mg PO TID 10/30/17 [History] Insulin Glargine,Hum.rec.anlog [Toujeo Solostar] 10 units SQ HS 12/16/17 [History] Furosemide [Lasix] 40 mg PO BID 06/04/18 [History] Ferrous Sulfate [Iron (65 MG Elemental)] 325 mg PO BID 01/19/19 [History] allopurinoL [Zyloprim] 100 mg PO DAILY 03/25/19 [History] calcitrioL 0.25 mcg PO Q48H 03/25/19 [History] Sacubitril/Valsartan [Entresto 24 mg-26 mg Tablet] 1 tab PO BID 04/13/19 [History] Cholecalciferol [Vitamin D3 (25 Mcg = 1000 Iu)] 25 mcg PO HS 10/02/20 [History] Metoprolol Tartrate [Lopressor] 50 mg PO BID 01/30/21 [History] Brimonidine Tartrate [Alphagan P 0.2% Ophth Soln] 1 drop BOTH EYES BID 09/14/23 [History] Dapagliflozin Propanediol [Farxiga] 10 mg PO DAILY 09/14/23 [History] Acetaminophen Tab [Tylenol] 650 mg PO Q6HR PRN tab 09/23/23 [Rx] Edoxaban Tosylate [Savaysa] 30 mg PO DAILY #30 tab 09/23/23 [Rx] Multivitamins, Thera [Multivitamin (formulary)] 1 each PO DAILY@1200 #30 tab 09/23/23 [Rx] diphenhydrAMINE & Zinc Cream [Benadryl Cream] 1 applic TOPICAL BID PRN #28 gm 09/23/23 [Rx] diphenhydrAMINE [Benadryl] 25 mg PO BID PRN #20 capsule 09/23/23 [Rx] Follow up Appointment(s)/Referral(s): Edgardo Juarez MD [Primary Care Provider] - 09/25/23 11:30 am Ro Gonzalez MD [STAFF PHYSICIAN] - As Needed Patient Instructions/Handouts: Urinary Tract Infection in Women (DC), Dyspnea (DC) Activity/Diet/Wound Care/Special Instructions: Activity limited until follow-up Follow-up with primary care provider on discharge Follow-up with general surgery outpatient as needed Follow-up cardiology outpatient Continue taking medications as prescribed Use Benadryl as needed and avoid itching the skin on the chest Elevate lower extremities while at rest Continue with warm compresses 2-3 times daily on the left antecubital area and elevate while at rest Discharge Disposition: HOME SELF-CARE
== END 2023-09-23 14:23 | disposition home or self-care (01) | DRG 291 ==
LOC: EC 12:30 → INTOOBSV 17:37 → 5NMEDONC 17:37 → OBSVTOIN 17:38 → 4SSUR 20:36
PROVIDERS: ADMIT Internal Medicine; ATTEND Internal Medicine
PROC: 0DB38ZX Excision of Lower Esophagus, Via Natural or Artificial Opening Endoscopic, Diagnostic (ICD-10-PCS; principal; 2023-09-19 11:25)
PROC: 0DB98ZX Excision of Duodenum, Via Natural or Artificial Opening Endoscopic, Diagnostic (ICD-10-PCS; principal; 2023-09-19 11:25)
PROC: 0DB68ZX Excision of Stomach, Via Natural or Artificial Opening Endoscopic, Diagnostic (ICD-10-PCS; principal; 2023-09-19 11:25)
PROC: 0DBP8ZX Excision of Rectum, Via Natural or Artificial Opening Endoscopic, Diagnostic (ICD-10-PCS; 2023-09-19 11:25)
DX: I13.0 Hypertensive heart and chronic kidney disease with heart failure and stage 1 through stage 4 chronic kidney disease, or unspecified chronic kidney disease (principal); I50.23 Acute on chronic systolic (congestive) heart failure; K57.31 Diverticulosis of large intestine without perforation or abscess with bleeding; N17.9 Acute kidney failure, unspecified; D62 Acute posthemorrhagic anemia; N39.0 Urinary tract infection, site not specified; I48.21 Permanent atrial fibrillation; K22.10 Ulcer of esophagus without bleeding; I27.20 Pulmonary hypertension, unspecified; E11.22 Type 2 diabetes mellitus with diabetic chronic kidney disease; E11.36 Type 2 diabetes mellitus with diabetic cataract; I80.8 Phlebitis and thrombophlebitis of other sites; B96.20 Unspecified Escherichia coli [E. coli] as the cause of diseases classified elsewhere; E11.65 Type 2 diabetes mellitus with hyperglycemia; N18.30 Chronic kidney disease, stage 3 unspecified; I08.3 Combined rheumatic disorders of mitral, aortic and tricuspid valves; E66.9 Obesity, unspecified; Z68.35 Body mass index [BMI] 35.0-35.9, adult; Z79.4 Long term (current) use of insulin; R31.9 Hematuria, unspecified; I25.5 Ischemic cardiomyopathy; K29.00 Acute gastritis without bleeding; K29.50 Unspecified chronic gastritis without bleeding; K64.1 Second degree hemorrhoids; E78.5 Hyperlipidemia, unspecified; E87.5 Hyperkalemia; I25.10 Atherosclerotic heart disease of native coronary artery without angina pectoris; H26.9 Unspecified cataract; I87.8 Other specified disorders of veins; K21.9 Gastro-esophageal reflux disease without esophagitis; K44.9 Diaphragmatic hernia without obstruction or gangrene; M19.90 Unspecified osteoarthritis, unspecified site; Z79.84 Long term (current) use of oral hypoglycemic drugs; Z79.899 Other long term (current) drug therapy; Z95.5 Presence of coronary angioplasty implant and graft; Z95.0 Presence of cardiac pacemaker; Z87.440 Personal history of urinary (tract) infections; Z88.8 Allergy status to other drugs, medicaments and biological substances; Z88.1 Allergy status to other antibiotic agents; Z91.041 Radiographic dye allergy status; Z91.040 Latex allergy status; Z71.3 Dietary counseling and surveillance
CPT/HCPCS: 36415; 43239; 45385; 71045; 71046; 74018; 74176; 76856; 80048; 80053; 81001; 82140; 82272; 82550; 83036; 83605; 83690; 83735; 83880; 84484; 85025; 85027; 86850; 86900; 86901; 87040; 87077; 87086; 87186; 88305; 88342; 93005; 93306; 96365; 96375; 99285

== ENCOUNTER 2023-10-01 13:51 | Inpatient (IN) | payer MEDICARE ==
--- NOTE | 2023-10-01 14:47 | ED ---
General Adult HPI - General Chief complaint: Shortness of Breath Stated complaint: SOB Time Seen by Provider: 10/01/23 14:35 Source: patient, RN notes reviewed, old records reviewed Mode of arrival: ambulatory Limitations: no limitations - History of Present Illness Initial comments: This is a 73-year-old female who presents to the emergency department the past medical history significant for pacemaker and diabetes. Patient comes in today stating that a couple weeks ago she was admitted to the hospital for rectal bleeding. Patient states she was told she had diverticulosis. Patient states she has been home for about 10 days now. Patient states over the last 3 days she has been short of breath and it is seems to be worse with exertion. Patient Nuys chest pain or palpitations. Patient states she stands up and she feels very lightheaded and dizzy at times as well. Patient denies any fever or chills. Patient denies any focal numbness or weakness. Patient denies any abdominal pain patient has any nausea vomiting diarrhea. - Related Data Home Medications Medication Instructions Recorded Confirmed Atorvastatin [Lipitor] 40 mg PO HS 10/22/17 10/01/23 metFORMIN HCL [Glucophage] 850 mg PO TID 10/30/17 10/01/23 Insulin Glargine,Hum.rec.anlog 10 units SQ HS 12/16/17 10/01/23 [Toujeo Solostar] Furosemide [Lasix] 40 mg PO BID 06/04/18 10/01/23 Ferrous Sulfate [Iron (65 MG 325 mg PO BID 01/19/19 10/01/23 Elemental)] allopurinoL [Zyloprim] 100 mg PO DAILY 03/25/19 10/01/23 calcitrioL 0.25 mcg PO Q48H 03/25/19 10/01/23 Sacubitril/Valsartan [Entresto 24 1 tab PO BID 04/13/19 10/01/23 mg-26 mg Tablet] Cholecalciferol [Vitamin D3 (25 25 mcg PO HS 10/02/20 10/01/23 Mcg = 1000 Iu)] Metoprolol Tartrate [Lopressor] 50 mg PO DAILY 01/30/21 10/01/23 Brimonidine Tartrate [Alphagan P 1 drop BOTH EYES BID 09/14/23 10/01/23 0.2% Oph Soln] Dapagliflozin Propanediol [Farxiga] 10 mg PO DAILY 09/14/23 10/01/23 Multivitamins, Thera [Multivitamin 1 tab PO DAILY@1200 10/01/23 10/01/23 (formulary)] Triamcinolone 0.1% Cream [Kenalog 1 applicatio TOPICAL BID 10/01/23 10/01/23 0.1% Cream] Previous Rx's Medication Instructions Recorded Acetaminophen Tab [Tylenol] 650 mg PO Q6HR PRN tab 09/23/23 Edoxaban Tosylate [Savaysa] 30 mg PO DAILY #30 tab 09/23/23 diphenhydrAMINE & Zinc Cream 1 applic TOPICAL BID PRN #28 gm 09/23/23 [Benadryl Cream] diphenhydrAMINE [Benadryl] 25 mg PO BID PRN #20 capsule 09/23/23 Allergies Allergy/AdvReac Type Severity Reaction Status Date / Time Iodinated Contrast Media Allergy Severe THROAT Verified 10/01/23 18:23 [Iodinated Contrast Media - SWELLING Oral and] iodine Allergy Severe THROAT Verified 10/01/23 18:23 SWELLING, RASH shellfish derived Allergy Severe THROAT Verified 10/01/23 18:23 SWELLING, RASH cefazolin sodium Allergy Dyspnea Verified 10/01/23 18:23 [From Kefzol] Latex, Natural Rubber Allergy Rash/Hives Verified 10/01/23 18:23 levofloxacin [From Levaquin] Allergy Rash/Hives Verified 10/01/23 18:23 piperacillin sodium Allergy THROAT Verified 10/01/23 18:23 [From Zosyn] SWELL, RASH tazobactam sodium Allergy THROAT Verified 10/01/23 18:23 [From Zosyn] SWELL, RASH verapamil AdvReac Severe Hallucinati Verified 10/01/23 18:23 ons seafood Allergy Severe throat Uncoded 10/01/23 18:23 swelling Review of Systems ROS Statement: Those systems with pertinent positive or pertinent negative responses have been documented in the HPI. ROS Other: All systems not noted in ROS Statement are negative. Past Medical History Past Medical History: Atrial Fibrillation, Heart Failure, Diabetes Mellitus, Eye Disorder, Hyperlipidemia, Osteoarthritis (OA), Pneumonia, Skin Disorder, Vascular Disorder Additional Past Medical History / Comment(s): Chronic Venous Stasis BLE w/ chronic ulceration of the left lower extremity, current small area still left leg, CAD W/ coronary stenting Rt PDA 2013. History of kidney stones. Pacemaker (Brand:ST DAPHNE). HAS CATARACT LT. WOUNDS LLE, USING SILVADENE CREAM. EDEMA BLE. seeing Dr Calderon r/t kidney function. Small wound LLE. History of Any Multi-Drug Resistant Organisms: None Reported Past Surgical History: Cardiac Ablation, Heart Catheterization, Heart Catheterization With Stent, Hysterectomy, Pacemaker, Tubal Ligation Additional Past Surgical History / Comment(s): states has had mult sx on veins left leg, [place] with cardioversion, varicose vein stripping, one cardiac stent, rt cataract, kidney stone sx, LLE surgery with stent and skin grafting. ANEMIA- BLOOD TRANSFUSIONS. Past Anesthesia/Blood Transfusion Reactions: No Reported Reaction Additional Past Anesthesia/Blood Transfusion Reaction / Comment(s): PONV 40 PLUS YEARS AGO, AFTER REMOVAL KIDNEY STONE. Date of Last Stent Placement:: November 2013 Type of Cardiac Device: Permanent Pacemaker Device Placement Date:: 10/30/2017 Past Psychological History: No Psychological Hx Reported Smoking Status: Never smoker Past Alcohol Use History: None Reported Past Drug Use History: None Reported - Past Family History Father History Unknown: Yes Family Medical History: No Reported History Additional Family Medical History / Comment(s): Aneurysm, passed in 2000. Mother Family Medical History: Cancer Additional Family Medical History / Comment(s): Bladder and has since passed. General Exam - General Exam Comments Initial Comments: GENERAL: Patient is well-developed and well-nourished. Patient is nontoxic and well- hydrated and is in mild distress. ENT: Neck is soft and supple. No significant lymphadenopathy is noted. Oropharynx is clear. Moist mucous membranes. Neck has full range of motion without eliciting any pain. EYES: The sclera were anicteric and conjunctiva were pink and moist. Extraocular movements were intact and pupils were equal round and reactive to light. E yelids were unremarkable. PULMONARY: Unlabored respirations. Good breath sounds bilaterally. No audible rales rhonchi or wheezing was noted. CARDIOVASCULAR: There is a regular rate and rhythm without any murmurs gallops or rubs. ABDOMEN: Soft and nontender with normal bowel sounds. SKIN: Skin is clear with no lesions or rashes and otherwise unremarkable. NEUROLOGIC: Patient is alert and oriented x3. Cranial nerves II through XII are grossly intact. Motor and sensory are also intact. Normal speech, volume and content. Symmetrical smile. MUSCULOSKELETAL: Normal extremities with adequate strength and full range of motion. 1+ edema bilaterally LYMPHATICS: No significant lymphadenopathy is noted PSYCHIATRIC: Normal psychiatric evaluation. Limitations: no limitations Course Vital Signs 10/01/23 10/01/23 13:53 16:37 Temperature 98.4 F Pulse Rate 60 60 Respiratory 22 18 Rate Blood Pressure 154/76 142/55 O2 Sat by Pulse 98 99 Oximetry Medical Decision Making - Medical Decision Making EKG is interpreted by myself. EKG shows a paced rhythm at 60 bpm QRS is 149 QT interval 450 QTc is 450. Patient's EKG shows no ST segment elevation or depression. Was pt. sent in by a medical professional or institution (, PA, [facility], urgent care, hospital, or [facility]...) When possible be specific @ -No Did you speak to anyone other than the patient for history (EMS, parent, family, police, friend...)? What history was obtained from this source @ -I spoke with Dr. Juarez about some of the patient's history Did you review nursing and triage notes (agree or disagree)? Why? @ -I reviewed and agree with nursing and triage notes Were old charts reviewed (outside hosp., previous admission, EMS record, old EKG, old radiological studies, urgent care reports/EKG's, [facility] records)? Report findings @ -I compared chest x-rays and there is no acute abnormality when I compared today's to previous. I also compared lab work and no significant abnormality Differential Diagnosis (chest pain, altered mental status, abdominal pain women, abdominal pain men, vaginal bleeding, weakness, fever, dyspnea, syncope, headache, dizziness, GI bleed, back pain, seizure, CVA, palpatations, mental health, musculoskeletal)? @ -Differential Dyspnea: Coronary syndrome, arrhythmia, tamponade, asthma, COPD, pulmonary embolism, pneumonia, pneumothorax, pulmonary effusion, anaphylaxis, diabetic ketoacidosis, flailed chest, pulmonary contusion, diaphragmatic rupture, anemia, neuromuscular, this is not meant to be an all-inclusive list. EKG interpreted by me (3pts min.). @ -As above X-rays interpreted by me (1pt min.). @ -Chest x-ray shows no acute abnormality CT interpreted by me (1pt min.). @ -None done U/S interpreted by me (1pt. min.). @ -None done What testing was considered but not performed or refused? (CT, X-rays, U/S, lab s)? Why? @ -None What meds were considered but not given or refused? Why? @ -None Did you discuss the management of the patient with other professionals (professionals i.e. DrNiko, PA, [facility], lab, RT, psych nurse, psychologist social, rider ticket worker, teacher, general service officer, case picker)? Give summary @ -I spoke with Dr. Juarez and he want the patient admitted [facility] Was smoking cessation discussed for >3mins.? @ -No Was critical care preformed (if so, how long)? @ -No Were there social determinants of health that impacted care today? How? (Ho melessness, low income, unemployed, alcoholism, drug addiction, transportation, low edu. Level, literacy, decrease access to med. care, long-term, rehab)? @ -No Was there de-escalation of care discussed even if they declined (Discuss DNR or withdrawal of care, Hospice)? DNR status @ -No What co-morbidities impacted this encounter? (DM, HTN, Smoking, COPD, CAD, Cancer, CVA, ARF, Chemo, Hep., AIDS, mental health diagnosis, sleep apnea, morbid obesity)? @ -None Was patient admitted / discharged? Hospital course, mention meds given and route, prescriptions, significant lab abnormalities, going to OR and other pertinent info. @ -Patient's lab work did not show an obvious answer to the patient's acute dyspnea. Patient was still feeling short of breath so [facility] and consult cardiology for Dr. Juarez's request Undiagnosed new problem with uncertain prognosis? @ -No Drug Therapy requiring intensive monitoring for toxicity (Heparin, Nitro, Insulin, Cardizem)? @ -No Were any procedures done? @ -No Diagnosis/symptom? @ -Dyspnea Acute, or Chronic, or Acute on Chronic? @ -Acute Uncomplicated (without systemic symptoms) or Complicated (systemic symptoms)? @ -Complicated Side effects of treatment? @ -No Exacerbation, Progression, or Severe Exacerbation? @ -No Poses a threat to life or bodily function? How? (Chest pain, [place], [place], pneumonia, PE, COPD, DKA, ARF, appy, cholecystitis, CVA, Diverticulitis, Homicidal, Suicidal, threat to staff... and all critical care pts) @ -Yes this can lead to hypoxia and endorgan dysfunction - Lab Data Result diagrams: 10/01/23 15:08 10/01/23 15:08 Lab Results 10/01/23 10/01/23 10/01/23 Range/Units 15:08 15:08 15:08 WBC 8.4 (3.8-10.6) k/uL RBC 3.67 L (3.80-5.40) m/uL Hgb 11.1 L (11.4-16.0) gm/dL Hct 35.5 (34.0-46.0) % MCV 96.9 (80.0-100.0) fL MCH 30.3 (25.0-35.0) pg MCHC 31.3 (31.0-37.0) g/dL RDW 15.5 (11.5-15.5) % Plt Count 269 (150-450) k/uL MPV 7.9 Neutrophils % 73 % Lymphocytes % 16 % Monocytes % 5 % Eosinophils % 5 % Basophils % 1 % Neutrophils # 6.1 (1.3-7.7) k/uL Lymphocytes # 1.3 (1.0-4.8) k/uL Monocytes # 0.4 (0-1.0) k/uL Eosinophils # 0.4 (0-0.7) k/uL Basophils # 0.0 (0-0.2) k/uL Hypochromasia Slight PT 14.7 H (10.0-12.5) sec INR 1.4 H (<1.2) APTT 28.5 (22.0-30.0) sec D-Dimer 0.76 H (<0.60) mg/L FEU Sodium 141 (137-145) mmol/L Potassium 5.3 H (3.5-5.1) mmol/L Chloride 115 H (98-107) mmol/L Carbon Dioxide 17 L (22-30) mmol/L Anion Gap 9 mmol/L BUN 25 H (7-17) mg/dL Creatinine 1.15 H (0.52-1.04) mg/dL Est GFR (CKD-EPI)AfAm 55 (>60 ml/min/1.73 sqM) Est GFR (CKD-EPI)NonAf 48 (>60 ml/min/1.73 sqM) Glucose 87 (74-99) mg/dL Plasma Lactic Acid Adrien (0.7-2.0) mmol/L Calcium 8.9 (8.4-10.2) mg/dL Magnesium 1.6 (1.6-2.3) mg/dL Total Bilirubin 0.4 (0.2-1.3) mg/dL AST 42 H (14-36) U/L ALT 42 H (4-34) U/L Alkaline Phosphatase 93 (38-126) U/L Troponin I (0.000-0.034) ng/mL NT-Pro-B Natriuret Pep 6430 pg/mL Total Protein 6.3 (6.3-8.2) g/dL Albumin 3.8 (3.5-5.0) g/dL 10/01/23 10/01/23 Range/Units 15:08 15:08 WBC (3.8-10.6) k/uL RBC (3.80-5.40) m/uL Hgb (11.4-16.0) gm/dL Hct (34.0-46.0) % MCV (80.0-100.0) fL MCH (25.0-35.0) pg MCHC (31.0-37.0) g/dL RDW (11.5-15.5) % Plt Count (150-450) k/uL MPV Neutrophils % % Lymphocytes % % Monocytes % % Eosinophils % % Basophils % % Neutrophils # (1.3-7.7) k/uL Lymphocytes # (1.0-4.8) k/uL Monocytes # (0-1.0) k/uL Eosinophils # (0-0.7) k/uL Basophils # (0-0.2) k/uL Hypochromasia PT (10.0-12.5) sec INR (<1.2) APTT (22.0-30.0) sec D-Dimer (<0.60) mg/L FEU Sodium (137-145) mmol/L Potassium (3.5-5.1) mmol/L Chloride (98-107) mmol/L Carbon Dioxide (22-30) mmol/L Anion Gap mmol/L BUN (7-17) mg/dL Creatinine (0.52-1.04) mg/dL Est GFR (CKD-EPI)AfAm (>60 ml/min/1.73 sqM) Est GFR (CKD-EPI)NonAf (>60 ml/min/1.73 sqM) Glucose (74-99) mg/dL Plasma Lactic Acid Adrien 2.0 (0.7-2.0) mmol/L Calcium (8.4-10.2) mg/dL Magnesium (1.6-2.3) mg/dL Total Bilirubin (0.2-1.3) mg/dL AST (14-36) U/L ALT (4-34) U/L Alkaline Phosphatase (38-126) U/L Troponin I <0.012 (0.000-0.034) ng/mL NT-Pro-B Natriuret Pep pg/mL Total Protein (6.3-8.2) g/dL Albumin (3.5-5.0) g/dL Disposition Clinical Impression: Dyspnea Disposition: ADMITTED IP TO THIS HOSP Referrals: Edgardo Juarez MD [Primary Care Provider] - 1-2 days Time of Disposition: 19:11
[2023-10-01 15:21] LABS: Basophils % (A) 1 %; Eosinophils # (A) 0.4 k/uL (0-0.7); Eosinophils % (A) 5 %; HCT 35.5 % (34.0-46.0); HGB 11.1 gm/dL (11.4-16.0); Hypochromasia Slight; Lymphocytes # (A) 1.3 k/uL (1.0-4.8); Lymphocytes % (A) 16 %; MCH 30.3 pg (25.0-35.0); MCHC 31.3 g/dL (31.0-37.0); MCV 96.9 fL (80.0-100.0); Mean Platelet Volume 7.9; Monocytes # (A) 0.4 k/uL (0-1.0); Monocytes % (A) 5 %; Neutrophils # (A) 6.1 k/uL (1.3-7.7); Neutrophils % (A) 73 %; Platelet Count 269 k/uL (150-450); RBC 3.67 m/uL (3.80-5.40); RDW 15.5 % (11.5-15.5); WBC 8.4 k/uL (3.8-10.6)
[2023-10-01 15:33] LABS: ALT 42 U/L (4-34); AST 42 U/L (14-36); African American GFR (CKD) 55 (>60 ml/min/1.73 sqM); Albumin 3.8 g/dL (3.5-5.0); Alkaline Phosphatase 93 U/L (38-126); Anion Gap 9 mmol/L; Blood Urea Nitrogen 25 mg/dL (7-17); Calcium 8.9 mg/dL (8.4-10.2); Carbon Dioxide 17 mmol/L (22-30); Chloride 115 mmol/L (98-107); Glucose 87 mg/dL (74-99); Magnesium 1.6 mg/dL (1.6-2.3); Non-African American GFR(CKD) 48 (>60 ml/min/1.73 sqM); Potassium 5.3 mmol/L (3.5-5.1); Sodium 141 mmol/L (137-145); Total Bilirubin 0.4 mg/dL (0.2-1.3); Total Protein 6.3 g/dL (6.3-8.2)
[2023-10-01 15:41] LABS: INR 1.4 (<1.2); NT-Pro-B-Type Natriuretic Pept 6430 pg/mL; Partial Thromboplastin Time 28.5 sec (22.0-30.0); Prothrombin Time 14.7 sec (10.0-12.5)
[2023-10-01] MEDS: diphenhydrAMINE 50 MG/ML 1 ML VIAL IVP STA (16:35)
[2023-10-01] MEDS: FAMOTIDINE 20 MG/2 ML VIAL IV STA (16:36)
[2023-10-01] MEDS: methylPREDNISolone SOD SUCCI 125 MG/2 ML VIAL IV STA (16:36)
--- NOTE | 2023-10-01 17:48 | CT ---
EXAMINATION TYPE: CT chest angio for PE CT DLP: 708.4 mGycm, Automated exposure control for dose reduction was used. DATE OF EXAM: 10/01/2023 5:10 PM COMPARISON: 01/09/2017. CLINICAL INDICATION:Female, 73 years old with history of elevated D-dimer, dyspnea; elevated D-dimer, dyspnea TECHNIQUE/CONTRAST: CTA scan of the thorax is performed with IV Contrast, patient injected with 80ml mL of Isovue 370, PR P images are created and reviewed these are created on a separate workstation.. FINDINGS: Pulmonary Artery: There is no evidence for a filling defect within the pulmonary vasculature to sugge st acute pulmonary embolism. The pulmonary artery is dilated up to 36 mm. Lungs/Pleura: No evidence of focal consolidation, pleural effusion or pneumothorax. There is a pulmon rocio nodule next to the fissure near the lung apex on the left measuring 7 mm possibly representing in trafissural lymph node. Airway: Large airways are patent. Heart: Appears enlarged for size. There is mitral valve annular calcifications and severe coronary [place] calcified effusions. No inguinal aorta 5 or 2 Mild degenerative arthropathy Vasculature: Moderate atherosclerotic calcifications are present throughout the aorta and its branche s. Mediastinum: No gross evidence of adenopathy. Musculoskeletal: Moderate degenerative disc disease changes are present throughout the thoracolumbar spine. Soft Tissues/lymph nodes: Unremarkable. Lower neck: No significant findings. 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 IMPRESSION: 1. No evidence of pulmonary embolism. 2. Pulmonary hypertension. 3. Cardiomegaly. 4. Severe coronary artery atherosclerosis. 5. 7 mm left upper lung nodule, new from 2017, Follow up CT in 3-6 months recommended to ensure stabi lity.
[2023-10-01] MEDS ORDERED: NITROGLYCERIN SL TABS 0.4 MG TAB SUBLINGUAL PRN (19:12)
[2023-10-01] MEDS: ASPIRIN 81 MG PO STA (19:45)
[2023-10-02 00:37] LABS: Glucose,Whole Blood 223 mg/dL (70-110)
[2023-10-02] MEDS: NITROGLYCERIN OINT 1 INCH/GM PACKET TOPICAL SCH (01:48)
[2023-10-02] MEDS ORDERED: ACETAMINOPHEN TAB 325 MG TAB PO PRN (02:25)
[2023-10-02] MEDS ORDERED: DEXTROSE 50% SYRINGE 50 ML IVP PRN ×2 (02:29)
[2023-10-02 07:40] LABS: Glucose,Whole Blood 246 mg/dL (70-110)
[2023-10-02 08:50] LABS: Chol/HDL Ratio 2.33 Ratio; LDL Cholesterol,Calculated 42.8 mg/dL (0.0-131.0); VLDL Calculation 15.86 mg/dL (5.00-40.00)
[2023-10-02] MEDS ORDERED: ASPIRIN 325 MG TAB PO SCH (09:00)
[2023-10-02] MEDS ORDERED: AMINOPHYLLINE 500 MG/20 ML VIAL IV PRN (09:05)
[2023-10-02] MEDS ORDERED: CAFFEINE CITRATE 60 MG/3 ML VIAL IV PRN (09:05)
[2023-10-02] MEDS ORDERED: REGADENOSON 0.4 MG/5 ML SYRINGE IV PRN (09:05)
[2023-10-02] MEDS: INSULIN ASPART (NovoLOG) 100 UNIT/ML VIAL SQ SCH (09:09)
--- NOTE | 2023-10-02 09:52 | P.CRDCN ---
History of Present Illness History of present illness: HISTORY OF PRESENT ILLNESS: This is a 73-year-old female with a past medical history significant for coronary artery disease, valvular heart disease, permanent atrial fibrillation, hypertension, hyperlipidemia, and diabetes. Patient follows in the office with Dr. Ralph. We have been asked to see the patient in consultation for shortness of breath. Patient examined at the bedside in the emergency room. Patient states she has been feeling SOB for the past 3 days. She reports increased lower extremity edema. She states when she was walking yesterday she was dizzy and felt like the floor was moving. She states yesterday when she was watching TV, she felt like the room was spinning and became short of breath. She states she had chest heaviness all day yesterday. She denies any chest heaviness at this time. She has been ambulating to the bathroom this morning without complaints of chest pain. The patient was recently admitted to the hospital for UTI and rectal bleeding. She underwent EGD/colonoscopy. She was discharged in stable condition. Her Savaysa was decreased to 30mg daily at that time. DIAGNOSTICS: - EKG reveals ventricular paced rhythm. - Chest CTA: Negative for pulmonary embolism, pulmonary hypertension, cardiomegaly, severe coronary artery atherosclerosis, 7 mm left upper lung nodule, new from 2017 - Laboratory data: WBC 8.4. Hemoglobin 11.1. Platelet count 269. D-dimer 0.76. Sodium 141. Potassium 5.3. BUN 25. Creatinine 1.15. Troponin negative x 3. proBNP 6430. - Current home cardiac medications include Farxiga 10 mg daily, Savaysa 30 mg daily, Lasix 40 mg twice a day, Entresto 24-26 mg twice a day, Lipitor 40 mg at night, metoprolol tartrate 50 mg daily. - Most recent echocardiogram obtained on September 15, 2023 revealed ejection fraction 40 to 45%, global hypokinesis, mild to moderate mitral stenosis, moderate mitral regurgitation, moderate tricuspid regurgitation, moderate pulmonary hypertension - Cardiac catheterization history: January 2019 revealing minimal CAD. Right dominant system. Patient has had previous stenting to the mid PDA in 2013. REVIEW OF SYSTEMS: At the time of my exam: CONSTITUTIONAL: Denies fever or chills. HEENT: Denies blurred vision, vision changes, or eye pain. Denies hemoptysis CARDIOVASCULAR: Denies chest pain. Denies orthopnea. Denies PND. Denies palpitations RESPIRATORY: Denies shortness of breath. GASTROINTESTINAL: Denies abdominal pain. Denies nausea or vomiting. HEMATOLOGIC: Denies bleeding disorders. GENITOURINARY: Denies any blood in urine. SKIN: Denies pruitis. Denies rash. PHYSICAL EXAM: VITAL SIGNS: Reviewed. GENERAL: Well-developed in no acute distress. HEENT: Head is normocephalic. Pupils are equal, round. Sclerae anicteric. Mucous membranes of the mouth are moist. Neck supple. No JVD or thyromegaly LUNGS: Respirations even and unlabored. Lungs essentially clear to auscultation bilaterally. HEART: Regular rate and rhythm. S1 and S2 heard. ABDOMEN: Soft. Nondistended. Nontender. EXTREMITIES: Normal range of motion. No clubbing or cyanosis. Peripheral pulses intact. No lower extremity edema NEUROLOGIC: Awake and alert. Oriented x 3. ASSESSMENT: Shortness of breath x 3 days, etiology unclear Chest discomfort, troponin negative x 3 New 7 mm left upper lobe nodule, per CTA Recent hospitalization for rectal bleeding, s/p egd and colonoscopy Chronic heart failure with preserved EF Coronary artery disease with previous stenting of the mid PDA, 2013 Moderate pulmonary hypertension Permanent atrial fibrillation History of AV marck ablation with permanent pacemaker implantation Valvular heart disease Hypertension Hyperlipidemia Diabetes PLAN: An acute coronary event has been ruled out No need to repeat echocardiogram as this was performed earlier this month Resume home cardiac medications Patient to undergo Lexiscan stress test today Further recommendations pending patient course Nurse practitioner note has been reviewed by physician. Signing provider agrees with the documented findings, assessment, and plan of care documented by DIRECTOR PERSONAL as a scribe. Past Medical History Past Medical History: Atrial Fibrillation, Heart Failure, Diabetes Mellitus, Eye Disorder, Hyperlipidemia, Osteoarthritis (OA), Pneumonia, Skin Disorder, Vascular Disorder Additional Past Medical History / Comment(s): Chronic Venous Stasis BLE w/ chronic ulceration of the left lower extremity, current small area still left leg, CAD W/ coronary stenting Rt PDA 2013. History of kidney stones. Pacemaker (Brand:ST DAPHNE). HAS CATARACT LT. WOUNDS LLE, USING SILVADENE CREAM. EDEMA BLE. seeing Dr Calderon r/t kidney function. Small wound LLE. History of Any Multi-Drug Resistant Organisms: None Reported Past Surgical History: Cardiac Ablation, Heart Catheterization, Heart Catheterization With Stent, Hysterectomy, Pacemaker, Tubal Ligation Additional Past Surgical History / Comment(s): states has had mult sx on veins left leg, [place] with cardioversion, varicose vein stripping, one cardiac stent, rt cataract, kidney stone sx, LLE surgery with stent and skin grafting. ANEMIA- BLOOD TRANSFUSIONS. Past Anesthesia/Blood Transfusion Reactions: No Reported Reaction Additional Past Anesthesia/Blood Transfusion Reaction / Comment(s): PONV 40 PLUS YEARS AGO, AFTER REMOVAL KIDNEY STONE. Date of Last Stent Placement:: November 2013 Type of Cardiac Device: Permanent Pacemaker Device Placement Date:: 10/30/2017 Past Psychological History: No Psychological Hx Reported Smoking Status: Never smoker Past Alcohol Use History: None Reported Past Drug Use History: None Reported - Past Family History Father History Unknown: Yes Family Medical History: No Reported History Additional Family Medical History / Comment(s): Aneurysm, passed in 2000. Mother Family Medical History: Cancer Additional Family Medical History / Comment(s): Bladder and has since passed. Medications and Allergies Home Medications Medication Instructions Recorded Confirmed Type Atorvastatin [Lipitor] 40 mg PO HS 10/22/17 10/01/23 History metFORMIN HCL [Glucophage] 850 mg PO TID 10/30/17 10/01/23 History Insulin Glargine,Hum.rec.anlog 10 units SQ HS 12/16/17 10/01/23 History [Toujeo Solostar] Furosemide [Lasix] 40 mg PO BID 06/04/18 10/01/23 History Ferrous Sulfate [Iron (65 MG 325 mg PO BID 01/19/19 10/01/23 History Elemental)] allopurinoL [Zyloprim] 100 mg PO DAILY 03/25/19 10/01/23 History calcitrioL 0.25 mcg PO Q48H 03/25/19 10/01/23 History Sacubitril/Valsartan [Entresto 24 1 tab PO BID 04/13/19 10/01/23 History mg-26 mg Tablet] Cholecalciferol [Vitamin D3 (25 25 mcg PO HS 10/02/20 10/01/23 History Mcg = 1000 Iu)] Metoprolol Tartrate [Lopressor] 50 mg PO DAILY 01/30/21 10/01/23 History Brimonidine Tartrate [Alphagan P 1 drop BOTH EYES BID 09/14/23 10/01/23 History 0.2% Ophth Soln] Dapagliflozin Propanediol [Farxiga] 10 mg PO DAILY 09/14/23 10/01/23 History Acetaminophen Tab [Tylenol] 650 mg PO Q6HR PRN tab 09/23/23 10/01/23 Rx Edoxaban Tosylate [Savaysa] 30 mg PO DAILY #30 tab 09/23/23 10/01/23 Rx diphenhydrAMINE & Zinc Cream 1 applic TOPICAL BID PRN #28 gm 09/23/23 10/01/23 Rx [Benadryl Cream] diphenhydrAMINE [Benadryl] 25 mg PO BID PRN #20 capsule 09/23/23 10/01/23 Rx Multivitamins, Thera [Multivitamin 1 tab PO DAILY@1200 10/01/23 10/01/23 History (formulary)] Triamcinolone 0.1% Cream [Kenalog 1 applicatio TOPICAL BID 10/01/23 10/01/23 H istory 0.1% Cream] Allergies Allergy/AdvReac Type Severity Reaction Status Date / Time Iodinated Contrast Media Allergy Severe THROAT Verified 10/01/23 18:23 [Iodinated Contrast Media - SWELLING Oral and] iodine Allergy Severe THROAT Verified 10/01/23 18:23 SWELLING, RASH shellfish derived Allergy Severe THROAT Verified 10/01/23 18:23 SWELLING, RASH cefazolin sodium Allergy Dyspnea Verified 10/01/23 18:23 [From Kefzol] Latex, Natural Rubber Allergy Rash/Hives Verified 10/01/23 18:23 levofloxacin [From Levaquin] Allergy Rash/Hives Verified 10/01/23 18:23 piperacillin sodium Allergy THROAT Verified 10/01/23 18:23 [From Zosyn] SWELL, RASH tazobactam sodium Allergy THROAT Verified 10/01/23 18:23 [From Zosyn] SWELL, RASH verapamil AdvReac Severe Hallucinati Verified 10/01/23 18:23 ons seafood Allergy Severe throat Uncoded 10/01/23 18:23 swelling Physical Exam Vitals: Vital Signs Temp Pulse Resp BP Pulse Ox 10/02/23 08:01 96 10/02/23 06:10 60 18 118/48 98 10/02/23 01:31 60 18 133/59 95 05/21/24 21:26 60 18 132/54 96 10/01/23 19:43 60 18 152/68 98 10/01/23 16:37 60 18 142/55 99 10/01/23 13:53 98.4 F 60 22 154/76 98 Results 10/01/23 15:08 10/01/23 15:08 Cardiac Enzymes 10/01/23 10/01/23 10/01/23 Range/Units 15:08 15:08 19:50 AST 42 H (14-36) U/L Troponin I <0.012 <0.012 (0.000-0.034) ng/mL 10/01/23 Range/Units 23:16 AST (14-36) U/L Troponin I <0.012 (0.000-0.034) ng/mL Coagulation 10/01/23 Range/Units 15:08 PT 14.7 H (10.0-12.5) sec APTT 28.5 (22.0-30.0) sec CBC 10/01/23 Range/Units 15:08 WBC 8.4 (3.8-10.6) k/uL RBC 3.67 L (3.80-5.40) m/uL Hgb 11.1 L (11.4-16.0) gm/dL Hct 35.5 (34.0-46.0) % Plt Count 269 (150-450) k/uL Comprehensive Metabolic Panel 10/01/23 Range/Units 15:08 Sodium 141 (137-145) mmol/L Potassium 5.3 H (3.5-5.1) mmol/L Chloride 115 H (98-107) mmol/L Carbon Dioxide 17 L (22-30) mmol/L BUN 25 H (7-17) mg/dL Creatinine 1.15 H (0.52-1.04) mg/dL Glucose 87 (74-99) mg/dL Calcium 8.9 (8.4-10.2) mg/dL AST 42 H (14-36) U/L ALT 42 H (4-34) U/L Alkaline Phosphatase 93 (38-126) U/L Total Protein 6.3 (6.3-8.2) g/dL Albumin 3.8 (3.5-5.0) g/dL Current Medications Generic Name Dose Route Start Last Admin Trade Name Freq PRN Reason Stop Dose Admin Acetaminophen 650 mg 05/22/24 02:25 Acetaminophen Tab 325 Mg Tab PO Q6HR PRN Fever and/ or Mild Pain Allopurinol 100 mg 10/02/23 09:00 Allopurinol 100 Mg Tab PO DAILY [facility] Aspirin 325 mg 10/02/23 09:00 Aspirin 325 Mg Tab PO DAILY [facility] Atorvastatin Calcium 40 mg 10/02/23 21:00 Atorvastatin 40 Mg Tab PO HS [facility] Calcitriol 0.25 mcg 10/03/23 09:00 Calcitriol 0.25 Mcg Cap PO Q48H [facility] Cholecalciferol 25 mcg 10/02/23 21:00 Cholecalciferol 25 Mcg (1000 Iu) Tablet PO HS [facility] Dapagliflozin 10 mg 10/02/23 09:00 Dapagliflozin Propanediol 10 Mg Tablet PO DAILY [facility] Dextrose/Water 25 ml 10/02/23 02:29 Dextrose 50% Syringe 50 Ml IVP PER PROTOCOL PRN Hypoglycemia Protocol Dextrose/Water 50 ml 10/02/23 02:29 Dextrose 50% Syringe 50 Ml IVP PER PROTOCOL PRN Hypoglycemia Protocol Insulin Aspart 0 unit 10/02/23 07:30 Insulin Aspart (Novolog) 100 Unit/Ml Vial SQ ACHS [facility] Protocol Insulin Detemir 10 unit 10/02/23 21:00 Insulin Detemir (Levemir) 100 Unit/Ml Syr SQ HS [facility] Metformin HCl 850 mg 10/02/23 09:00 Metformin 850 Mg Tab PO TID [facility] Metoprolol Tartrate 50 mg 10/02/23 09:00 Metoprolol Tartrate 50 Mg Tab PO DAILY [facility] Nitroglycerin 0.4 mg 10/01/23 19:12 Nitroglycerin Sl Tabs 0.4 Mg Tab SUBLINGUAL Q5M PRN Chest Pain Nitroglycerin 1 inch 10/02/23 00:00 10/02/23 06:10 Nitroglycerin Oint 1 Inch/Gm Packet TOPICAL 1 inch Q6HR [facility] Administration Sacubitril/Valsartan 1 each 10/02/23 09:00 Sacubitril/Valsartan 24 Mg-26 Mg Tablet PO BID [facility] 10/01/23 15:08 10/01/23 15:08
[2023-10-02 11:52] LABS: Glucose,Whole Blood 172 mg/dL (70-110)
--- NOTE | 2023-10-02 12:35 | P.HPIM ---
History of Present Illness 73-year-old female came with complaints of shortness of breath unexplained etiology does have history of coronary disease well her heart disease and permanent atrial fibrillation presently rate controlled. Although workup is negative including CT angio of the chest which did not show pneumonia or pulmonary embolism, patient is saturating well. Patient had ejection fraction of 40 to 45% with wall motion abnormalities on the echocardiogram that was done on September 2023 patient does have history of chronic diastolic function, clinically not in heart failure although her proBNP is 6430. REVIEW OF SYSTEMS: CONSTITUTIONAL: No fever, no malaise, no fatigue. HEENT: No recent visual problems or hearing problems. Denied any sore throat. CARDIOVASCULAR: No orthopnea, PND, no palpitations, no syncope. PULMONARY: no cough, no hemoptysis. GASTROINTESTINAL: No diarrhea, no nausea, no vomiting, no abdominal pain. NEUROLOGICAL: No headaches, no weakness, no numbness. HEMATOLOGICAL: Denies any bleeding or petechiae. GENITOURINARY: Denies any burning micturition, frequency, or urgency. MUSCULOSKELETAL/RHEUMATOLOGICAL: Denies any joint pain, swelling, or any muscle pain. ENDOCRINE: Denies any polyuria or polydipsia. The rest of the 14-point review of systems is negative. PHYSICAL EXAMINATION: GENERAL: The patient is alert and oriented x3, not in any acute distress. Well developed, well nourished. HEENT: Pupils are round and equally reacting to light. EOMI. No scleral icterus. No conjunctival pallor. Normocephalic, atraumatic. No pharyngeal erythema. No thyromegaly. CARDIOVASCULAR: S1 and S2 present. No murmurs, rubs, or gallops. PULMONARY: Chest is clear to auscultation, no wheezing or crackles. ABDOMEN: Soft, nontender, nondistended, normoactive bowel sounds. No palpable organomegaly. MUSCULOSKELETAL: No joint swelling or deformity. EXTREMITIES: No cyanosis, clubbing, or pedal edema. NEUROLOGICAL: Gross neurological examination did not reveal any focal deficits. SKIN: No rashes. Assessment and plan Shortness of breath unexplained etiology because of which patient is undergoing stress test if that is negative patient will be discharged no evidence of heart failure exacerbation no PE or pneumonia at this time -Chest discomfort troponins are negative -Coronary disease with stenting -Moderate pulmonary hypertension -Permanent atrial fibrillation not in acute exacerbation is on anticoagulation which will be continued-, patient has a pacemaker -Congestive heart failure chronic systolic function without any acute exacerbation patient is on Entresto which will be continued -Hypertension -Hyperlipidemia -Type 2 diabetes mellitus Patient is clinically doing well if stress test is negative patient will be discharged today patient is saturating at 98% on room air no medication changes will be made Past Medical History Past Medical History: Atrial Fibrillation, Heart Failure, Diabetes Mellitus, Eye Disorder, Hyperlipidemia, Osteoarthritis (OA), Pneumonia, Skin Disorder, Vascular Disorder Additional Past Medical History / Comment(s): Chronic Venous Stasis BLE w/ chronic ulceration of the left lower extremity, current small area still left leg, CAD W/ coronary stenting Rt PDA 2013. History of kidney stones. Pacemaker (Brand:ST DPAHNE). HAS CATARACT LT. WOUNDS LLE, USING SILVADENE CREAM. EDEMA BLE. seeing Dr Calderon r/t kidney function. Small wound LLE. History of Any Multi-Drug Resistant Organisms: None Reported Past Surgical History: Cardiac Ablation, Heart Catheterization, Heart Catheterization With Stent, Hysterectomy, Pacemaker, Tubal Ligation Additional Past Surgical History / Comment(s): states has had mult sx on veins left leg, [place] with cardioversion, varicose vein stripping, one cardiac stent, rt cataract, kidney stone sx, LLE surgery with stent and skin grafting. ANEMIA- BLOOD TRANSFUSIONS. Past Anesthesia/Blood Transfusion Reactions: No Reported Reaction Additional Past Anesthesia/Blood Transfusion Reaction / Comment(s): PONV 40 PLUS YEARS AGO, AFTER REMOVAL KIDNEY STONE. Date of Last Stent Placement:: November 2013 Type of Cardiac Device: Permanent Pacemaker Device Placement Date:: 10/30/2017 Past Psychological History: No Psychological Hx Reported Smoking Status: Never smoker Past Alcohol Use History: None Reported Past Drug Use History: None Reported - Past Family History Father History Unknown: Yes Family Medical History: No Reported History Additional Family Medical History / Comment(s): Aneurysm, passed in 2000. Mother Family Medical History: Cancer Additional Family Medical History / Comment(s): Bladder and has since passed. Medications and Allergies Home Medications Medication Instructions Recorded Confirmed Type Atorvastatin [Lipitor] 40 mg PO HS 10/22/17 10/01/23 History metFORMIN HCL [Glucophage] 850 mg PO TID 10/30/17 10/01/23 History Insulin Glargine,Hum.rec.anlog 10 units SQ HS 12/16/17 10/01/23 History [Touchatoo Solostar] Furosemide [Lasix] 40 mg PO BID 06/04/18 10/01/23 History Ferrous Sulfate [Iron (65 MG 325 mg PO BID 01/19/19 10/01/23 History Elemental)] allopurinoL [Zyloprim] 100 mg PO DAILY 03/25/19 10/01/23 History calcitrioL 0.25 mcg PO Q48H 03/25/19 10/01/23 History Sacubitril/Valsartan [Entresto 24 1 tab PO BID 04/13/19 10/01/23 History mg-26 mg Tablet] Cholecalciferol [Vitamin D3 (25 25 mcg PO HS 10/02/20 10/01/23 History Mcg = 1000 Iu)] Metoprolol Tartrate [Lopressor] 50 mg PO DAILY 01/30/21 10/01/23 History Brimonidine Tartrate [Alphagan P 1 drop BOTH EYES BID 09/14/23 10/01/23 History 0.2% Ophth Soln] Dapagliflozin Propanediol [Farxiga] 10 mg PO DAILY 09/14/23 10/01/23 History Acetaminophen Tab [Tylenol] 650 mg PO Q6HR PRN tab 09/23/23 10/01/23 Rx Edoxaban Tosylate [Savaysa] 30 mg PO DAILY #30 tab 09/23/23 10/01/23 Rx diphenhydrAMINE & Zinc Cream 1 applic TOPICAL BID PRN #28 gm 09/23/23 10/01/23 Rx [Benadryl Cream] diphenhydrAMINE [Benadryl] 25 mg PO BID PRN #20 capsule 09/23/23 10/01/23 Rx Multivitamins, Thera [Multivitamin 1 tab PO DAILY@1200 10/01/23 10/01/23 History (formulary)] Triamcinolone 0.1% Cream [Kenalog 1 applicatio TOPICAL BID 10/01/23 10/01/23 History 0.1% Cream] Allergies Allergy/AdvReac Type Severity Reaction Status Date / Time Iodinated Contrast Media Allergy Severe THROAT Verified 10/01/23 18:23 [Iodinated Contrast Media - SWELLING Oral and] iodine Allergy Severe THROAT Verified 10/01/23 18:23 SWELLING, RASH shellfish derived Allergy Severe THROAT Verified 10/01/23 18:23 SWELLING, RASH cefazolin sodium Allergy Dyspnea Verified 10/01/23 18:23 [From Kefzol] Latex, Natural Rubber Allergy Rash/Hives Verified 10/01/23 18:23 levofloxacin [From Levaquin] Allergy Rash/Hives Verified 10/01/23 18:23 piperacillin sodium Allergy THROAT Verified 10/01/23 18:23 [From Zosyn] SWELL, RASH tazobactam sodium Allergy THROAT Verified 10/01/23 18:23 [From Zosyn] SWELL, RASH verapamil AdvReac Severe Hallucinati Verified 10/01/23 18:23 ons seafood Allergy Severe throat Uncoded 10/01/23 18:23 swelling Physical Exam Vitals: Vital Signs Temp Pulse Pulse Resp BP BP Pulse Ox 10/02/23 12:08 97.6 F 60 17 149/79 98 10/02/23 08:01 96 10/02/23 06:10 60 18 118/48 98 10/02/23 01:31 60 18 133/59 95 10/01/23 21:26 60 18 132/54 96 10/01/23 19:43 60 18 152/68 98 10/01/23 16:37 60 18 142/55 99 10/01/23 13:53 98.4 F 60 22 154/76 98 Results CBC & Chem 7: 10/01/23 15:08 10/01/23 15:08 Labs: Abnormal Lab Results - Last 24 Hours (Table) 10/01/23 10/01/23 10/01/23 Range/Units 15:08 15:08 15:08 RBC 3.67 L (3.80-5.40) m/uL Hgb 11.1 L (11.4-16.0) gm/dL PT 14.7 H (10.0-12.5) sec INR 1.4 H (<1.2) D-Dimer 0.76 H (<0.60) mg/L FEU Potassium 5.3 H (3.5-5.1) mmol/L Chloride 115 H (98-107) mmol/L Carbon Dioxide 17 L (22-30) mmol/L BUN 25 H (7-17) mg/dL Creatinine 1.15 H (0.52-1.04) mg/dL POC Glucose (mg/dL) (70-110) mg/dL AST 42 H (14-36) U/L ALT 42 H (4-34) U/L 10/02/23 10/02/23 10/02/23 Range/Units 00:35 07:39 11:51 RBC (3.80-5.40) m/uL Hgb (11.4-16.0) gm/dL PT (10.0-12.5) sec INR (<1.2) D-Dimer (<0.60) mg/L FEU Potassium (3.5-5.1) mmol/L Chloride (98-107) mmol/L Carbon Dioxide (22-30) mmol/L BUN (7-17) mg/dL Creatinine (0.52-1.04) mg/dL POC Glucose (mg/dL) 223 H 246 H 172 H (70-110) mg/dL AST (14-36) U/L ALT (4-34) U/L
[2023-10-02] MEDS: allopurinoL 100 MG TAB PO SCH (13:16)
[2023-10-02] MEDS: DAPAGLIFLOZIN PROPANEDIOL 10 MG TABLET PO SCH (13:16)
[2023-10-02] MEDS: metFORMIN 850 MG TAB PO SCH (13:16)
[2023-10-02] MEDS: SACUBITRIL/VALSARTAN 24 MG-26 MG TABLET PO SCH (13:17)
[2023-10-02] MEDS: METOPROLOL TARTRATE 50 MG TAB PO SCH (13:17)
[2023-10-02 14:37] LABS: African American GFR (CKD) 50 (>60 ml/min/1.73 sqM); Anion Gap 10 mmol/L; Blood Urea Nitrogen 29 mg/dL (7-17); Calcium 8.9 mg/dL (8.4-10.2); Carbon Dioxide 17 mmol/L (22-30); Chloride 112 mmol/L (98-107); Glucose 192 mg/dL (74-99); Non-African American GFR(CKD) 44 (>60 ml/min/1.73 sqM); Potassium 5.4 mmol/L (3.5-5.1); Sodium 139 mmol/L (137-145)
[2023-10-02] MEDS: FUROSEMIDE 10 MG/ML 4 ML VIAL IV SCH (15:32)
[2023-10-02] MEDS: SODIUM ZIRCONIUM CYCLOSILICATE 10 GM PACKET PO ONE (15:37)
--- NOTE | 2023-10-02 15:41 | CA ---
Lexiscan Nuclear Stress Test Report Name: Osiris Mendoza Exam Date: 10/02/2023 10:46 Exam Location: [place] Stress Ht (in): 65 Wt (lb): 217 BSA: 2.05 Ordering Phys: Bhavani Pringle Referring Phys: MICHAEL MORSE MD,, Technologist: Jess Bethea RDCS Age: 73 Gender: F : 1950 Procedure CPT: Indications: Reflex order-Stress test ICD-10 Codes: Patient History: LAURY, HTN, DM, FAMILY HX, CATH, PACEMAKER Medications: SEE CHART Meds past 24 hrs: Pretest Chest Pain: STRESS TEST Lexiscan Protocol Exercise Duration (min:sec): 01:[address] Depressions (mm): Angina Score: [place] Oca Score: Resting HR (bpm): 60 Peak HR (bpm): 64 Resting BP (mmHg): 153 / 64 Peak BP (mmHg): 159 / 63 MPHR: 149 Target HR: 127 % MPHR: 43 METS: 1.0 Total Dose: Peak Dose: Atropine: Double Product: 32565 BP Response: Stress Termination: END OF DOSE Stress Symptoms: No chest pain or symptoms Stress Summary: ECG ANALYSIS Resting ECG: Stress ECG: CONCLUSIONS At baseline EKG showed ventricular paced rhythm with underlying atrial fibrillation. Patient recieved IV infusion of Lexiscan 0.4mg and at peak infusion EKG showed no significant change from baseline. Conclusions: 1. Nonspecific stress EKG portion given baseline EKG abnormalities. 2. Nuclear imaging to be reported separately. Dr. Michael Morse DO (Electronically Signed) Final Date: 02 Oct 2023 15:40
[2023-10-02] MEDS: EDOXABAN TOSYLATE 30 MG TABLET PO SCH (15:55)
--- NOTE | 2023-10-02 17:00 | NM ---
EXAMINATION TYPE: NM stress lexiscan cardiolite DATE OF EXAM: 10/02/2023 COMPARISON: NONE HISTORY: TECHNIQUE: After the intravenous administration of 9.86 mCi Tc 99m Sestamibi - Cardiolite resting SP ECT images acquired 50 minutes post injection. At peak stress 26.1 mCi Tc 99m Sestamibi - Stress images obtained 35 minutes post injection The patient was stressed with 0.4mg Lexiscan. FINDINGS: There is diminished radiotracer accumulation along the lateral wall stress images. This is a more nor mal appearance on the resting images. Findings can be compatible with stress-induced ischemic change findings are matched with the polar maps. There is hypokinesia of the distal left ventricle near the cardiac apex. Ejection fraction is calculated to be 54 %. IMPRESSION: 1. Stress-induced ischemic change lateral wall. Correlate with EKG changes.
[2023-10-02 17:06] LABS: Glucose,Whole Blood 190 mg/dL (70-110)
[2023-10-02 20:11] LABS: Glucose,Whole Blood 188 mg/dL (70-110)
[2023-10-02] MEDS: FERROUS SULFATE 325 MG TAB PO SCH (21:34)
[2023-10-02] MEDS: CHOLECALCIFEROL 25 MCG (1000 IU) TABLET PO SCH (21:34)
[2023-10-02] MEDS: ATORVASTATIN 40 MG TAB PO SCH (21:34)
[2023-10-02] MEDS: INSULIN DETEMIR (LEVEMIR) 100 UNIT/ML SYR SQ SCH (21:35)
[2023-10-02] MEDS: BRIMONIDINE TARTRATE 0.2% DROPS 5 ML BTL BOTH EYES SCH (21:35)
[2023-10-03 06:07] LABS: Glucose,Whole Blood 124 mg/dL (70-110)
[2023-10-03 11:30] LABS: Glucose,Whole Blood 121 mg/dL (70-110)
--- NOTE | 2023-10-03 11:46 | P.PN ---
Subjective Progress Note Date: 10/03/23 73-year-old female came with complaints of shortness of breath unexplained etiology does have history of coronary disease well her heart disease and permanent atrial fibrillation presently rate controlled. Although workup is negative including CT angio of the chest which did not show pneumonia or pulmonary embolism, patient is saturating well. Patient had ejection fraction of 40 to 45% with wall motion abnormalities on the echocardiogram that was done on September 2023 patient does have history of chronic diastolic function, clinically not in heart failure although her proBNP is 6430. 10/03/2023 Patient evaluated in follow up on the medical floor. Stress test was found to be positive for stress induced ischemic change in the lateral wall. She is not complaining of chest pain today. Feeling dizzy while up ambulating. Continues with 1+ pitting lower extremity edema. Cardiology has made the patient NPO for possible further testing. Blood work not available from today yet. Does continue on IV lasix 40 mg 12h and recommending for strict intake and output monitoring. Metformin will be held due to the elevated creatinine. Review of Systems Constitutional: Denied any fatigue denied any fever. Cardio vascular: denied any chest pain, palpitations Gastrointestinal: denied any nausea, vomiting, diarrhea Pulmonary: Reports shortness of breath. no cough Neurologic denied any new focal deficits All inpatient medications were reviewed and appropriate changes in these medications as dictated in the interval history and assessment and plan. PHYSICAL EXAMINATION: GENERAL: The patient is alert and oriented x3, not in any acute distress. Well developed, well nourished. HEENT: Pupils are round and equally reacting to light. EOMI. No scleral icterus. No conjunctival pallor. Normocephalic, atraumatic. No pharyngeal erythema. No thyromegaly. CARDIOVASCULAR: S1 and S2 present. No murmurs, rubs, or gallops. PULMONARY:Diminished. ABDOMEN: Soft, nontender, nondistended, normoactive bowel sounds. No palpable organomegaly. MUSCULOSKELETAL: No joint swelling or deformity. EXTREMITIES: No cyanosis, clubbing, or pedal edema. 1+ lower extremity pitting edema. NEUROLOGICAL: Gross neurological examination did not reveal any focal deficits. SKIN: No rashes. Assessment and plan Shortness of breath could be due to coronary artery disease patient had a positive stress test and is NPO currently pending further work up with cardiology. Possibly going for cardiac catheterization. -Chest discomfort troponins are negative -Hx of Coronary artery disease with stenting -Moderate pulmonary hypertension -Permanent atrial fibrillation not in acute exacerbation is on anticoagulation which will be continued-, patient has a pacemaker -Congestive heart failure chronic systolic function with mild acute exacerbation patient is on Entresto which will be continued, continues on IV lasix -Acute kidney injury expected to improve with IV lasix this is due to vascular congestion. Metformin will be held and recommend to avoid nephrotoxic medications. Pending repeat blood work form today and will repeat blood work in the AM as well. -Hypertension -Hyperlipidemia -Type 2 diabetes mellitus GI prophylaxis DVT prophylaxis The impression and plan of care has been dictated by Milagros Elena Nurse Practitioner as directed. Dr. Ashwin MD I have performed a history and physical examination and medical decision making of this patient, discussed the same with the dictator, and agree with the dictators assessment and plan as written, documented as a scribe. Based on total visit time, I have performed more than 50% of this visit. Objective - Vital Signs Vital signs: Vital Signs Temp 97.8 F 10/03/23 07:00 Pulse 60 10/03/23 07:00 Resp 16 10/03/23 08:00 BP 139/78 10/03/23 07:00 Pulse Ox 97 10/03/23 07:00 FiO2 Intake & Output 10/02/23 10/03/23 10/03/23 18:59 06:59 18:59 Output Total 900 Balance -900 Output: Urine 900 Other: Voiding Method Toilet Toilet # Voids 1 # Bowel Movements 1 - Labs CBC & Chem 7: 10/01/23 15:08 10/02/23 13:50 Labs: Abnormal Lab Results - Last 24 Hours (Table) 10/02/23 10/02/23 10/02/23 Range/Units 11:51 13:50 17:02 Potassium 5.4 H (3.5-5.1) mmol/L Chloride 112 H (98-107) mmol/L Carbon Dioxide 17 L (22-30) mmol/L BUN 29 H (7-17) mg/dL Creatinine 1.25 H (0.52-1.04) mg/dL Glucose 192 H (74-99) mg/dL POC Glucose (mg/dL) 172 H 190 H (70-110) mg/dL 10/02/23 10/03/23 10/03/23 Range/Units 20:09 06:05 11:28 Potassium (3.5-5.1) mmol/L Chloride (98-107) mmol/L Carbon Dioxide (22-30) mmol/L BUN (7-17) mg/dL Creatinine (0.52-1.04) mg/dL Glucose (74-99) mg/dL POC Glucose (mg/dL) 188 H 124 H 121 H (70-110) mg/dL Assessment and Plan Time with Patient: Less than 30
[2023-10-03 11:47] LABS: African American GFR (CKD) 41 (>60 ml/min/1.73 sqM); Anion Gap 9 mmol/L; Blood Urea Nitrogen 37 mg/dL (7-17); Calcium 9.2 mg/dL (8.4-10.2); Carbon Dioxide 21 mmol/L (22-30); Chloride 110 mmol/L (98-107); Glucose 112 mg/dL (74-99); Non-African American GFR(CKD) 35 (>60 ml/min/1.73 sqM); Potassium 4.7 mmol/L (3.5-5.1); Sodium 140 mmol/L (137-145)
--- NOTE | 2023-10-03 12:43 | P.PN ---
Subjective HISTORY OF PRESENT ILLNESS: This is a 73-year-old female with a past medical history significant for coronary artery disease, valvular heart disease, permanent atrial fibrillation, hypertension, hyperlipidemia, and diabetes. Patient follows in the office with Dr. Ralph. We have been asked to see the patient in consultation for shortness of breath. Patient examined at the bedside in the emergency room. Patient states she has been feeling SOB for the past 3 days. She reports increased lower extremity edema. She states when she was walking yesterday she was dizzy and felt like the floor was moving. She states yesterday when she was watching TV, she felt like the room was spinning and became short of breath. She states she had chest heaviness all day yesterday. She denies any chest heaviness at this time. She has been ambulating to the bathroom this morning without complaints of chest pain. The patient was recently admitted to the hospital for UTI and rectal bleeding. She underwent EGD/colonoscopy. She was discharged in stable condition. Her Savaysa was decreased to 30mg daily at that time. DIAGNOSTICS: - EKG reveals ventricular paced rhythm. - Chest CTA: Negative for pulmonary embolism, pulmonary hypertension, cardiomegaly, severe coronary artery atherosclerosis, 7 mm left upper lung nodule, new from 2016 - Laboratory data: WBC 8.4. Hemoglobin 11.1. Platelet count 269. D-dimer 0.76. Sodium 141. Potassium 5.3. BUN 25. Creatinine 1.15. Troponin negative x 3. proBNP 6430. - Current home cardiac medications include Farxiga 10 mg daily, Savaysa 30 mg daily, Lasix 40 mg twice a day, Entresto 24-26 mg twice a day, Lipitor 40 mg at night, metoprolol tartrate 50 mg daily. - Most recent echocardiogram obtained on September 15, 2023 revealed ejection fraction 40 to 45%, global hypokinesis, mild to moderate mitral stenosis, moderate mitral regurgitation, moderate tricuspid regurgitation, moderate pulmonary hypertension - Cardiac catheterization history: January 2019 revealing minimal CAD. Right dominant system. Patient has had previous stenting to the mid PDA in 2013. 10/03/2023 Patient underwent Lexiscan stress test yesterday revealing stress-induced ischemic changes of the lateral wall. Patient examined this morning at the bedside. Patient reports having chest pain this morning. She denies any shortness of breath. She states her dizziness has resolved. PHYSICAL EXAM: VITAL SIGNS: Reviewed. GENERAL: Well-developed in no acute distress. HEENT: Head is normocephalic. Pupils are equal, round. Sclerae anicteric. Mucous membranes of the mouth are moist. Neck supple. No JVD or thyromegaly LUNGS: Respirations even and unlabored. Lungs essentially clear to auscultation bilaterally. HEART: Regular rate and rhythm. S1 and S2 heard. ABDOMEN: Soft. Nondistended. Nontender. EXTREMITIES: Normal range of motion. No clubbing or cyanosis. Peripheral pulses intact. No lower extremity edema NEUROLOGIC: Awake and alert. Oriented x 3. ASSESSMENT: Shortness of breath x 3 days, etiology unclear status post Lexiscan stress test revealing lateral wall ischemic changes Chest discomfort, troponin negative x 3 New 7 mm left upper lobe nodule, per CTA Recent hospitalization for rectal bleeding, s/p egd and colonoscopy Chronic heart failure with preserved EF Coronary artery disease with previous stenting of the mid PDA, 2013 Moderate pulmonary hypertension Permanent atrial fibrillation History of AV marck ablation with permanent pacemaker implantation Valvular heart disease Hypertension Hyperlipidemia Diabetes Acute kidney injury PLAN: Continue current cardiac medications Monitor kidney function. Repeat in AM. Hold Lasix tonight and tomorrow morning N.p.o. at midnight Patient will require pre medication for iodine allergy Patient to undergo cardiac catheterization tomorrow with Dr. Gudino Further recommendations pending patient course Nurse practitioner note has been reviewed by physician. Signing provider agrees with the documented findings, assessment, and plan of care documented by [employer] as a scribe. Objective - Vital Signs Vital signs: Vital Signs Temp 97.8 F 10/03/23 07:00 Pulse 60 10/03/23 07:00 Resp 16 10/03/23 08:00 BP 139/78 10/03/23 07:00 Pulse Ox 97 10/03/23 07:00 FiO2 Intake & Output 10/02/23 10/03/23 10/03/23 18:59 06:59 18:59 Output Total 900 Balance -900 Output: Urine 900 Other: Voiding Method Toilet Toilet # Voids 1 # Bowel Movements 1 - Labs CBC & Chem 7: 10/01/23 15:08 10/03/23 11:08 Labs: Abnormal Lab Results - Last 24 Hours (Table) 10/02/23 10/02/23 10/02/23 Range/Units 11:51 13:50 17:02 Potassium 5.4 H (3.5-5.1) mmol/L Chloride 112 H (98-107) mmol/L Carbon Dioxide 17 L (22-30) mmol/L BUN 29 H (7-17) mg/dL Creatinine 1.25 H (0.52-1.04) mg/dL Glucose 192 H (74-99) mg/dL POC Glucose (mg/dL) 172 H 190 H (70-110) mg/dL 10/02/23 10/03/23 Range/Units 20:09 06:05 Potassium (3.5-5.1) mmol/L Chloride (98-107) mmol/L Carbon Dioxide (22-30) mmol/L BUN (7-17) mg/dL Creatinine (0.52-1.04) mg/dL Glucose (74-99) mg/dL POC Glucose (mg/dL) 188 H 124 H (70-110) mg/dL
[2023-10-03] MEDS ORDERED: NITROGLYCERIN SL TABS 0.4 MG TAB SUBLINGUAL PRN (13:04)
[2023-10-03] MEDS ORDERED: ALPRAZolam 0.5 MG TAB PO PRN (13:04)
[2023-10-03] MEDS ORDERED: ALPRAZolam 0.25 MG TAB PO PRN (13:04)
[2023-10-03 16:51] LABS: Glucose,Whole Blood 153 mg/dL (70-110)
[2023-10-03 20:02] LABS: Glucose,Whole Blood 107 mg/dL (70-110)
[2023-10-04] MEDS: ASPIRIN 325 MG TAB PO ONE (05:07)
[2023-10-04] MEDS: ATORVASTATIN 80 MG TAB PO ONE (05:07)
[2023-10-04] MEDS: SODIUM CHLORIDE 0.9% 1,000 ML in EMPTY BAG 1 BAG IV SCH (05:07)
[2023-10-04 06:06] LABS: Glucose,Whole Blood 103 mg/dL (70-110)
[2023-10-04] MEDS ORDERED: HEPARIN SODIUM,PORCINE (1 ML) 2,500 UNIT in SODIUM CHLORIDE 0.9% 250 ML IRRIGATION PRN (07:00)
[2023-10-04] MEDS ORDERED: HEPARIN SODIUM,PORCINE 10,000 UNIT in SODIUM CHLORIDE 0.9% 1,000 ML IRRIGATION PRN (07:00)
[2023-10-04 08:44] LABS: African American GFR (CKD) 46 (>60 ml/min/1.73 sqM); Anion Gap 6 mmol/L; Blood Urea Nitrogen 38 mg/dL (7-17); Calcium 8.8 mg/dL (8.4-10.2); Carbon Dioxide 21 mmol/L (22-30); Chloride 112 mmol/L (98-107); Glucose 95 mg/dL (74-99); Non-African American GFR(CKD) 40 (>60 ml/min/1.73 sqM); Potassium 4.6 mmol/L (3.5-5.1); Sodium 139 mmol/L (137-145)
[2023-10-04 11:32] LABS: Glucose,Whole Blood 126 mg/dL (70-110)
[2023-10-04] MEDS: methylPREDNISolone SOD SUCCI 125 MG/2 ML VIAL IV ONE (12:38)
[2023-10-04] MEDS: diphenhydrAMINE 50 MG/ML 1 ML VIAL IVP ONE (12:39)
[2023-10-04] MEDS: FAMOTIDINE 20 MG/2 ML VIAL IV ONE (12:39)
[2023-10-04] MEDS ORDERED: LIDOCAINE 1% INJ 10MG/ML (20 ML MDV) ONE (12:59)
[2023-10-04] MEDS ORDERED: fentaNYL (PF) 50 MCG/ML 2 ML AMP ONE (12:59)
[2023-10-04] MEDS ORDERED: VERAPAMIL 2.5 MG/ML 2 ML AMP ONE (12:59)
[2023-10-04] MEDS: IV FLUID CONTINUATION 1,000 ML IV ONE (13:10)
[2023-10-04] MEDS: fentaNYL (PF) 50 MCG/ML 2 ML AMP IVP ONE (13:20)
[2023-10-04] MEDS: MIDAZOLAM 2 MG/2 ML VIAL IVP ONE (13:20)
[2023-10-04] MEDS: LIDOCAINE 1% INJ 10MG/ML (20 ML MDV) SQ ONE (13:22)
[2023-10-04] MEDS: HEPARIN SODIUM 1,000 UN/ML (10ML VL) IVP ONE (13:28)
[2023-10-04] MEDS: VERAPAMIL SYRINGE (5 MG/10 ML) INTRAARTER ONE (13:28)
--- NOTE | 2023-10-04 13:31 | P.PN ---
Subjective Progress Note Date: 10/04/23 HISTORY OF PRESENT ILLNESS: This is a 73-year-old female with a past medical history significant for co ronary artery disease, valvular heart disease, permanent atrial fibrillation, hypertension, hyperlipidemia, and diabetes. Patient follows in the office with Dr. Ralph. We have been asked to see the patient in consultation for shortness of breath. Patient examined at the bedside in the emergency room. Patient states she has been feeling SOB for the past 3 days. She reports increased lower extremity edema. She states when she was walking yesterday she was dizzy and felt like the floor was moving. She states yesterday when she was watching TV, she felt like the room was spinning and became short of breath. She states she had chest heaviness all day yesterday. She denies any chest heaviness at this time. She has been ambulating to the bathroom this morning without complaints of chest pain. The patient was recently admitted to the hospital for UTI and rectal bleeding. She underwent EGD/colonoscopy. She was discharged in stable condition. Her Savaysa was decreased to 30mg daily at that time. DIAGNOSTICS: - EKG reveals ventricular paced rhythm. - Chest CTA: Negative for pulmonary embolism, pulmonary hypertension, cardiomegaly, severe coronary artery atherosclerosis, 7 mm left upper lung nodule, new from 2017 - Laboratory data: WBC 8.4. Hemoglobin 11.1. Platelet count 269. D-dimer 0 .76. Sodium 141. Potassium 5.3. BUN 25. Creatinine 1.15. Troponin negative x 3. proBNP 6430. - Current home cardiac medications include Farxiga 10 mg daily, Savaysa 30 mg daily, Lasix 40 mg twice a day, Entresto 24-26 mg twice a day, Lipitor 40 mg at night, metoprolol tartrate 50 mg daily. - Most recent echocardiogram obtained on September 15, 2023 revealed ejection fraction 40 to 45%, global hypokinesis, mild to moderate mitral stenosis, moderate mitral regurgitation, moderate tricuspid regurgitation, moderate pulmonary hypertension - Cardiac catheterization history: January 2019 revealing minimal CAD. Right dominant system. Patient has had previous stenting to the mid PDA in 2013. 10/03/2023 Patient underwent Lexiscan stress test yesterday revealing stress-induced ischemic changes of the lateral wall. Patient examined this morning at the bedside. Patient reports having chest pain this morning. She denies any shortness of breath. She states her dizziness has resolved. 10/03 Patient has been transferred to the cardiac stepdown unit. She is scheduled for cardiac catheterization today with Dr. Gudino. Repeat blood work reveals BUN of 38 creatinine 1.35. Blood pressures running between 115/68-151/89, heart rate 60, pulse ox 100% on room air. Patient denies having any chest pain today. PHYSICAL EXAM: VITAL SIGNS: Reviewed. GENERAL: Well-developed in no acute distress. HEENT: Head is normocephalic. Pupils are equal, round. Sclerae anicteric. Mucous membranes of the mouth are moist. Neck supple. No JVD or thyromegaly LUNGS: Respirations even and unlabored. Lungs essentially clear to auscultation bilaterally. HEART: Regular rate and rhythm. S1 and S2 heard. ABDOMEN: Soft. Nondistended. Nontender. EXTREMITIES: Normal range of motion. No clubbing or cyanosis. Peripheral pulses intact. No lower extremity edema NEUROLOGIC: Awake and alert. Oriented x 3. ASSESSMENT: Shortness of breath x 3 days, etiology unclear status post Lexiscan stress test revealing lateral wall ischemic changes Chest discomfort, troponin negative x 3 New 7 mm left upper lobe nodule, per CTA Recent hospitalization for rectal bleeding, s/p egd and colonoscopy Chronic heart failure with preserved EF Coronary artery disease with previous stenting of the mid PDA, 2013 Moderate pulmonary hypertension Permanent atrial fibrillation History of AV marck ablation with permanent pacemaker implantation Valvular heart disease Hypertension Hyperlipidemia Diabetes Acute kidney injury PLAN: Continue current cardiac medications Monitor kidney function. Repeat in AM. Hold Lasix this morning and resume this evening N.p.o. at midnight Patient will require pre medication for iodine allergy Patient to undergo cardiac catheterization this afternoon with Dr. Gudino Further recommendations pending patient course Nurse practitioner note has been reviewed by physician. Signing provider agrees with the documented findings, assessment, and plan of care documented by WIG MAKER as a scribe. Objective - Vital Signs Vital signs: Vital Signs Temp 97.5 F L 10/04/23 07:47 Pulse 60 10/04/23 07:47 Resp 16 10/04/23 07:47 BP 115/68 10/04/23 07:47 Pulse Ox 97 10/04/23 07:47 FiO2 Intake & Output 10/03/23 10/04/23 10/04/23 18:59 06:59 18:59 Intake Total 120 540 Output Total 650 Balance -530 540 Weight 103.5 kg Intake: Oral 120 540 Output: Urine 650 Other: Voiding Method Toilet Toilet Toilet # Voids 2 1 # Bowel Movements 1 - Labs CBC & Chem 7: 10/01/23 15:08 10/04/23 07:19 Labs: Abnormal Lab Results - Last 24 Hours (Table) 10/03/23 10/03/23 10/03/23 Range/Units 11:08 11:08 11:28 Chloride 110 H (98-107) mmol/L Carbon Dioxide 21 L (22-30) mmol/L BUN 37 H (7-17) mg/dL Creatinine 1.49 H (0.52-1.04) mg/dL Glucose 112 H (74-99) mg/dL POC Glucose (mg/dL) 121 H (70-110) mg/dL Hemoglobin A1c 6.7 H (<=6.0) % 10/03/23 10/04/23 Range/Units 16:49 07:19 Chloride 112 H (98-107) mmol/L Carbon Dioxide 21 L (22-30) mmol/L BUN 38 H (7-17) mg/dL Creatinine 1.35 H (0.52-1.04) mg/dL Glucose (74-99) mg/dL POC Glucose (mg/dL) 153 H (70-110) mg/dL Hemoglobin A1c (<=6.0) %
[2023-10-04] MEDS: IOPAMIDOL-370 100ML BTL INJ ONE (13:36)
--- NOTE | 2023-10-04 15:44 | CDI ---
Documentation Clarification Form Date: 10/04/2023 03:12:17 PM From: Safia Evans RN, CCDS Phone: [phone] Admit Date: 10/03/2023 10:59:00 AM Patient Name: Osiris Mendoza Visit Number: [id number] Discharge Date: ATTENTION: The Clinical Documentation Specialists (CDI) and [facility] Coding Staff appreciate your assistance in clarifying documentation. Please respond to the clarification below the line at the bottom and electronically sign. The CDI & [facility] Coding staff will review the response and follow-up if needed. Please note: Queries are made part of the Legal Health Record. If you have any questions, please contact the author of this message via ITS. Dr. Milagros Elena Conflicting documentation has been found in the medical record. As attending physician, please provide clarification. 10/01 Cardiology consult, subsequent progress notes: Chronic heart failure with preserved EF 10/02 attending progress notes: Congestive heart failure chronic systolic function with mild acute exacerbation History/Risk Factors: Clinical Indicators: 73-year-old female came with complaints of shortness of breath unexplained etiology does have history of coronary disease well her heart disease and permanent atrial fibrillation. echocardiogram 09/16/23 ejection fraction of 40 to 45% with wall motion abnormalities. She was documented to have history of chronic diastolic function, clinically not in heart failure although her proBNP is 6430. 10/02/23 Stress test, was found to be positive for stress induced ischemic change in the lateral wall 10/02 VS 139/78 60 12 97.8 97% RA Treatment: Cardiac/Telemetry monitoring Lasix 40MG IV Q 12 HRS Strict intake and output monitoring Lipitor 40 mg PO HS 10/01-10/02 Lopressor 50MG PO Daily 10/01-10/03 Please clarify which diagnosis is most appropriate: [ ] Chronic heart failure with preserved EF with mild acute exacerbation [x ] Congestive heart failure chronic systolic function with mild acute exacerbation [ ] Chronic heart failure with preserved EF [ ] Other (please specify) [ ] Unable to determine (Template Last Revised: July 2020) MTDD
[2023-10-04 16:24] LABS: Glucose,Whole Blood 237 mg/dL (70-110)
--- NOTE | 2023-10-04 18:21 | P.PN ---
Subjective Progress Note Date: 10/04/23 73-year-old female came with complaints of shortness of breath unexplained etiology does have history of coronary disease well her heart disease and permanent atrial fibrillation presently rate controlled. Although workup is negative including CT angio of the chest which did not show pneumonia or pulmona ry embolism, patient is saturating well. Patient had ejection fraction of 40 to 45% with wall motion abnormalities on the echocardiogram that was done on September 2023 patient does have history of chronic diastolic function, clinically not in heart failure although her proBNP is 6430. Objective - Vital Signs Vital signs: Vital Signs Temp 97.5 F L 10/04/23 11:15 Pulse 60 10/04/23 11:15 Resp 16 10/04/23 11:15 BP 151/89 10/04/23 11:15 Pulse Ox 100 10/04/23 11:15 FiO2 Intake & Output 10/03/23 10/04/23 10/04/23 18:59 06:59 18:59 Intake Total 120 540 Output Total 650 Balance -530 540 Weight 103.5 kg Intake: Oral 120 540 Output: Urine 650 Other: Voiding Method Toilet Toilet Toilet # Voids 2 1 # Bowel Movements 1 - Exam GENERAL: The patient is alert and oriented x3, not in any acute distress. Well developed, well nourished. HEENT: Pupils are round and equally reacting to light. EOMI. No scleral icterus. No conjunctival pallor. Normocephalic, atraumatic. No pharyngeal erythema. No thyromegaly. CARDIOVASCULAR: S1 and S2 present. No murmurs, rubs, or gallops. PULMONARY: Chest is clear to auscultation, no wheezing or crackles. ABDOMEN: Soft, nontender, nondistended, normoactive bowel sounds. No palpable organomegaly. MUSCULOSKELETAL: No joint swelling or deformity. EXTREMITIES: No cyanosis, clubbing, or pedal edema. NEUROLOGICAL: Gross neurological examination did not reveal any focal deficits. SKIN: No rashes. - Labs CBC & Chem 7: 10/01/23 15:08 10/04/23 07:19 Labs: Abnormal Lab Results - Last 24 Hours (Table) 10/03/23 10/03/23 10/04/23 Range/Units 11:08 16:49 07:19 Chloride 112 H (98-107) mmol/L Carbon Dioxide 21 L (22-30) mmol/L BUN 38 H (7-17) mg/dL Creatinine 1.35 H (0.52-1.04) mg/dL POC Glucose (mg/dL) 153 H (70-110) mg/dL Hemoglobin A1c 6.7 H (<=6.0) % 10/04/23 Range/Units 11:31 Chloride (98-107) mmol/L Carbon Dioxide (22-30) mmol/L BUN (7-17) mg/dL Creatinine (0.52-1.04) mg/dL POC Glucose (mg/dL) 126 H (70-110) mg/dL Hemoglobin A1c (<=6.0) % Assessment and Plan Assessment: Shortness of breath unexplained etiology because of which patient is undergoing stress test if that is negative patient will be discharged no evidence of heart failure exacerbation no PE or pneumonia at this time -Chest discomfort troponins are negative -Coronary disease with stenting -Moderate pulmonary hypertension -Permanent atrial fibrillation not in acute exacerbation is on anticoagulation which will be continued-, patient has a pacemaker -Congestive heart failure chronic systolic function without any acute exacerbation patient is on Entresto which will be continued -Hypertension -Hyperlipidemia -Type 2 diabetes mellitus Patient is clinically doing well if stress test is negative patient will be discharged today patient is saturating at 98% on room air no medication changes will be made
[2023-10-04 20:02] LABS: Glucose,Whole Blood 275 mg/dL (70-110)
[2023-10-04] MEDS: FUROSEMIDE 10 MG/ML 4 ML VIAL IV SCH (20:20)
[2023-10-05 01:15] VITALS: RESP 18
[2023-10-05 06:32] LABS: Glucose,Whole Blood 207 mg/dL (70-110)
[2023-10-05 08:56] LABS: African American GFR (CKD) 48 (>60 ml/min/1.73 sqM); Anion Gap 8 mmol/L; Blood Urea Nitrogen 33 mg/dL (7-17); Calcium 8.7 mg/dL (8.4-10.2); Carbon Dioxide 19 mmol/L (22-30); Chloride 114 mmol/L (98-107); Glucose 193 mg/dL (74-99); Non-African American GFR(CKD) 42 (>60 ml/min/1.73 sqM); Potassium 4.4 mmol/L (3.5-5.1); Sodium 141 mmol/L (137-145)
[2023-10-05 09:14] VITALS: PULSE 60; TEMP 97.7
--- NOTE | 2023-10-05 11:46 | P.PN ---
Subjective Progress Note Date: 10/05/23 HISTORY OF PRESENT ILLNESS: This is a 73-year-old female with a past medical history significant for co ronary artery disease, valvular heart disease, permanent atrial fibrillation, hypertension, hyperlipidemia, and diabetes. Patient follows in the office with Dr. Ralph. We have been asked to see the patient in consultation for shortness of breath. Patient examined at the bedside in the emergency room. Patient states she has been feeling SOB for the past 3 days. She reports increased lower extremity edema. She states when she was walking yesterday she was dizzy and felt like the floor was moving. She states yesterday when she was watching TV, she felt like the room was spinning and became short of breath. She states she had chest heaviness all day yesterday. She denies any chest heaviness at this time. She has been ambulating to the bathroom this morning without complaints of chest pain. The patient was recently admitted to the hospital for UTI and rectal bleeding. She underwent EGD/colonoscopy. She was discharged in stable condition. Her Savaysa was decreased to 30mg daily at that time. DIAGNOSTICS: - EKG reveals ventricular paced rhythm. - Chest CTA: Negative for pulmonary embolism, pulmonary hypertension, cardiomegaly, severe coronary artery atherosclerosis, 7 mm left upper lung nodule, new from 2017 - Laboratory data: WBC 8.4. Hemoglobin 11.1. Platelet count 269. D-dimer 0 .76. Sodium 141. Potassium 5.3. BUN 25. Creatinine 1.15. Troponin negative x 3. proBNP 6430. - Current home cardiac medications include Farxiga 10 mg daily, Savaysa 30 mg daily, Lasix 40 mg twice a day, Entresto 24-26 mg twice a day, Lipitor 40 mg at night, metoprolol tartrate 50 mg daily. - Most recent echocardiogram obtained on September 15, 2023 revealed ejection fraction 40 to 45%, global hypokinesis, mild to moderate mitral stenosis, moderate mitral regurgitation, moderate tricuspid regurgitation, moderate pulmonary hypertension - Cardiac catheterization history: January 2019 revealing minimal CAD. Right dominant system. Patient has had previous stenting to the mid PDA in 2013. 10/03/2023 Patient underwent Lexiscan stress test yesterday revealing stress-induced ischemic changes of the lateral wall. Patient examined this morning at the bedside. Patient reports having chest pain this morning. She denies any shortness of breath. She states her dizziness has resolved. 10/03 Patient has been transferred to the cardiac stepdown unit. She is scheduled for cardiac catheterization today with Dr. Gudino. Repeat blood work reveals BUN of 38 creatinine 1.35. Blood pressures running between 115/68-151/89, heart rate 60, pulse ox 100% on room air. Patient denies having any chest pain today. 10/04 Yesterday, patient underwent cardiac catheterization with Dr. Gudino which r evealed no obstructive coronary artery disease. Patient denies having any chest pain or chest pressure. She does have ecchymosis on the right wrist no hematoma. She patient states she had an episode when she got up from a sitting position and the room was spinning. That has not recurred. She denies any lightheadedness or dizziness at this time. Blood pressure 128/73, heart rate 60, pulse ox 98% on room air. Repeat blood work reveals BUN 33 and creatinine 1.3. PHYSICAL EXAM: VITAL SIGNS: Reviewed. GENERAL: Well-developed in no acute distress. HEENT: Head is normocephalic. Pupils are equal, round. Sclerae anicteric. Mucous membranes of the mouth are moist. Neck supple. No JVD or thyromegaly LUNGS: Respirations even and unlabored. Lungs essentially clear to auscultation bilaterally. HEART: Regular rate and rhythm. S1 and S2 heard. ABDOMEN: Soft. Nondistended. Nontender. EXTREMITIES: Normal range of motion. No clubbing or cyanosis. Peripheral pulses intact. No lower extremity edema NEUROLOGIC: Awake and alert. Oriented x 3. ASSESSMENT: Shortness of breath x 3 days, etiology unclear status post Lexiscan stress test revealing lateral wall ischemic changes, no obstructive coronary artery disease on cardiac cath Chest discomfort, troponin negative x 3 New 7 mm left upper lobe nodule, per CTA Recent hospitalization for rectal bleeding, s/p egd and colonoscopy Chronic heart failure with preserved EF Coronary artery disease with previous stenting of the mid PDA, 2013 Moderate pulmonary hypertension Permanent atrial fibrillation History of AV marck ablation with permanent pacemaker implantation Valvular heart disease Hypertension Hyperlipidemia Diabetes Acute kidney injury PLAN: Continue current cardiac medications Patient is cleared for discharge from cardiology and may follow-up in the office with Dr. Ralph in 1 week Nurse practitioner note has been reviewed by physician. Signing provider agrees with the documented findings, assessment, and plan of care documented by PREPARATION SUPERVISOR as a scribe. Objective - Vital Signs Vital signs: Vital Signs Temp 97.7 F 10/05/23 08:58 Pulse 60 10/05/23 08:58 Resp 18 10/05/23 08:58 BP 128/73 10/05/23 08:58 Pulse Ox 98 10/05/23 08:58 FiO2 Intake & Output 10/04/23 10/05/23 10/05/23 18:59 06:59 18:59 Intake Total 740 Output Total 0 Balance 740 Intake: IV 200 Oral 540 Output: Urine 0 Other: Voiding Method Toilet Toilet Toilet # Voids 2 1 - Labs CBC & Chem 7: 10/01/23 15:08 10/05/23 08:07 Labs: Abnormal Lab Results - Last 24 Hours (Table) 10/04/23 10/04/23 10/04/23 Range/Units 11:31 16:21 20:00 Chloride (98-107) mmol/L Carbon Dioxide (22-30) mmol/L BUN (7-17) mg/dL Creatinine (0.52-1.04) mg/dL Glucose (74-99) mg/dL POC Glucose (mg/dL) 126 H 237 H 275 H (70-110) mg/dL 10/05/23 10/05/23 Range/Units 06:31 08:07 Chloride 114 H (98-107) mmol/L Carbon Dioxide 19 L (22-30) mmol/L BUN 33 H (7-17) mg/dL Creatinine 1.30 H (0.52-1.04) mg/dL Glucose 193 H (74-99) mg/dL POC Glucose (mg/dL) 207 H (70-110) mg/dL
[2023-10-05 12:02] LABS: Glucose,Whole Blood 295 mg/dL (70-110)
[2023-10-05 12:32] VITALS: BP 133/81
--- NOTE | 2023-10-23 07:46 | P.CARDCATH ---
Date of Procedure: 10/04/23 Description of Procedure: PROCEDURES PERFORMED: Left heart catheterization, bilateral coronary angiography, ultrasound guided arterial access INDICATION: Chest pain CONSENT:I have discussed the risks, benefits and alternative therapies for the above-mentioned procedure and for both sedation/analgesia as well as necessary blood product administration, if indicated, as they pertain to this patient. The patient has indicated understanding and acceptance of the risks and procedures discussed. PROCEDURE: After the risks, benefits and alternatives of the above mentioned procedure explained in detail with the patient, informed consent was obtained. Patient was taken to the catheterization lab and prepped and draped in usual fashion. Ultrasound guidance was used to assess for arterial access. 1% lidocaine was used to anesthetize the right radial artery. A 6-Jamaican sheath was placed in the right radial artery using modified Seldinger technique and ultrasound guidance. Left coronary angiography was performed with a 5-Jamaican JL 3.5 catheter and right coronary angiography was performed with a 5-Jamaican FR5 catheter in various views. A 5-Jamaican FR5 catheter was inserted into the left ventricle and pressure measurements were obtained. The right radial sheath was removed and a TR band was placed with hemostasis achieved. The patient tolerated the procedure well. Patient was transported back to the post catheterization holding area in stable condition. Conscious Sedation: Patient was monitored under the direct supervision of myself for conscious sedation using Versed and fentanyl for a total duration of 14 minutes HEMODYNAMICS: Ao: 151/72 Lv: 141/8, LVEDP 11 SELECTIVE CORONARY ARTERIOGRAPHY: LEFT MAIN: The left main is a large caliber vessel which bifurcates into the LAD and circumflex. There is no significant stenosis. LEFT ANTERIOR DESCENDING CORONARY ARTERY: LAD is a large caliber vessel which wraps around to the apex. There are mild luminal irregularities with a 30% proximal LAD stenosis. LEFT CIRCUMFLEX CORONARY ARTERY: Left circumflex is a moderate caliber vessel with mild luminal irregularities. RIGHT CORONARY ARTERY: The right coronary artery is a large caliber vessel which gives off a PDA and PLV branch and is the dominant vessel. There is proximal RCA 10-20% stenosis. FINAL IMPRESSION: 1. Mild CAD as described above 2. Normal left sided filling pressures PLAN: 1. Aggressive risk factor modification per most recent ACC/AHA guidelines. 2. Follow-up in the office in 1-2 weeks.
== END 2023-10-05 14:14 | disposition home or self-care (01) | DRG 286 ==
LOC: EC 13:51 → 6NMEDSUR 19:13 → 1SOBS 10-02 11:34 → OBSVTOIN 10-03 10:59 → 3SCARD 10-03 19:00
PROVIDERS: ADMIT Hospitalist; ATTEND Hospitalist
PROC: 4A02XM4 Measurement of Cardiac Total Activity, External Approach (ICD-10-PCS; 2023-10-02)
PROC: B2111ZZ Fluoroscopy of Multiple Coronary Arteries using Low Osmolar Contrast (ICD-10-PCS; principal; 2023-10-04 13:30)
PROC: 4A023N7 Measurement of Cardiac Sampling and Pressure, Left Heart, Percutaneous Approach (ICD-10-PCS; principal; 2023-10-04 13:30)
DX: I25.10 Atherosclerotic heart disease of native coronary artery without angina pectoris (principal); I50.23 Acute on chronic systolic (congestive) heart failure; I48.21 Permanent atrial fibrillation; N17.9 Acute kidney failure, unspecified; I11.0 Hypertensive heart disease with heart failure; E11.51 Type 2 diabetes mellitus with diabetic peripheral angiopathy without gangrene; Z79.01 Long term (current) use of anticoagulants; E78.5 Hyperlipidemia, unspecified; I27.20 Pulmonary hypertension, unspecified; I08.1 Rheumatic disorders of both mitral and tricuspid valves; M19.90 Unspecified osteoarthritis, unspecified site; I87.8 Other specified disorders of veins; H26.9 Unspecified cataract; Z91.041 Radiographic dye allergy status; Z88.2 Allergy status to sulfonamides; Z98.51 Tubal ligation status; Z87.01 Personal history of pneumonia (recurrent); Z79.899 Other long term (current) drug therapy; Z79.84 Long term (current) use of oral hypoglycemic drugs; Z87.442 Personal history of urinary calculi; Z90.710 Acquired absence of both cervix and uterus; Z98.42 Cataract extraction status, left eye; Z98.41 Cataract extraction status, right eye; Z95.0 Presence of cardiac pacemaker; Z95.5 Presence of coronary angioplasty implant and graft; Z87.19 Personal history of other diseases of the digestive system; Z91.013 Allergy to seafood; Z88.8 Allergy status to other drugs, medicaments and biological substances; Z86.79 Personal history of other diseases of the circulatory system
CPT/HCPCS: 36415; 71275; 76937; 78452; 80048; 80053; 80061; 83036; 83605; 83735; 83880; 84484; 85025; 85379; 85610; 85730; 93005; 93017; 93458; 94760; 96374; 96375; 99285

== ENCOUNTER → 2024-03-23 | Outpatient (CLI) | payer MEDICARE ==
--- NOTE | 2024-03-27 13:37 | MM ---
Reason for Exam: Screening (asymptomatic). Last mammogram was performed 9 year(s) and 1 month(s) ago. Patient History: Menarche at age 14. First Full-Term at age 19. Left ovary removed at age 24. Right ovary removed at age 24. Hysterectomy at age 24. Postmenopausal. Risk Values: Sultana 5 year model risk: 1.3%. NCI Lifetime model risk: 3.5%. Prior Study Comparison: 09/07/2005 Bilateral Screening Mammogram, [facility]. 02/14/2015 Bilateral Diagnostic Mammogram, [facility]. Tissue Density: The breasts are almost entirely fatty. Findings: Analyzed By CAD. Right breast: There is no suspicious group of microcalcifications or new suspicious mass. Benign-appearing calcifications right breast. Left breast: The left axilla is partially obscured by cardiac conduction device. There is no suspicious group of microcalcifications or new suspicious mass. Overall Assessment: Benign, BI-RAD 2 Management: Screening Mammogram of both breasts in [address] [facility] will attempt to contact patient to return for supplemental views and ultrasound if indicated. Patient should continue monthly self-breast exams. A clinical breast exam by your physician is recommended on an annual basis. This exam should not preclude additional follow-up of suspicious palpable abnormalities. Note on Sultana scores and lifetime risk: 1. A Sultana score greater than 3% is considered moderate risk. If this is the case, consider specialist referral to assess eligibility for a risk reducing agent. 2. If overall lifetime risk for the development of breast cancer is 20% or higher, the patient may qualify for future screening with alternating mammogram and breast MRI. [facility], , 03/27/2024 1:33 PM. Electronically signed and approved by: Andrea Grimes DO
--- NOTE | 2024-03-29 22:51 | BD ---
EXAMINATION TYPE: Axial Bone Density DATE OF EXAM: 03/23/2024 CLINICAL HISTORY: 73 years old Female. ICD-10 CODE: [id number] ASYMPTOMATIC MENOPAUSAL STATE , Additional History: Height: 66 Weight: 214 Per pt., she is in a wc and I did not have her stand. FRAX RISK QUESTION Alcohol (3 or more units per day): no Family History (Parent hip fracture): no Glucocorticoids (More than 3mos): no (Ex: prednisone, prednisolone, methylprednisolone, dexamethasone, and hydrocortisone). History of Fracture in Adulthood: no Secondary Osteoporosis: 1. Type 1 Diabetes: ? 2. Hyperthyroidism: no 3. Menopause before 45: yes 4. Malnutrition: no 5. Chronic liver disease: no Rheumatoid Arthritis: no Current Tobacco Use: no RISK FACTORS HISTORY OF: Hip Fracture (Right/Left): no Spine Fracture: no History of Wrist Fracture: no Surgery to Spine/Hip(right/left)/Wrist (right/left): no MEDICATIONS: Thyroid Medications: no Osteoporosis Medications: no EXAM MEASUREMENTS: Bone mineral densitometry was performed using the watAgame System. Bone mineral density as measured about the Lumbar spine is: ----- L1-L4(G/cm2): 1.430 T Score Values are as follows: ----- L1: 1.0 ----- L2: 2.1 ----- L3: 2.6 ----- L4: 2.1 ----- L1-L4: 2.1 Z Score Values are as follows: ----- L1: 1.6 ----- L2: 2.7 ----- L3: 3.2 ----- L4: 2.7 ----- L1-L4: 2.7 Baseline Study Bone mineral density about the R hip (g/cm2): 0.822 Bone mineral density about the L hip (g/cm2): 0.844 T Score values are as follows: -----R Neck: -0.8 -----L Neck: -0.6 -----R Total: -1.5 -----L Total: -1.3 Z Score values are as follows: -----R Neck: 0.2 -----L Neck: 0.4 -----R Total: -0.7 -----L Total: -0.5 Baseline Study FRAX%s: The graph provided illustrates a 8.1% chance for a major osteoporotic fx and a 0.8% chance fo r the hips probability for fx in 10 years time. IMPRESSION: Normal (Values between +1 and -1 indicate normal bone mass). Consider repeating this study in 5 year s or sooner if there is some new clinical indication. NOTE: T-SCORE=SD OF THE YOUNG ADULT MEAN. [facility], , 03/29/2024 10:49 PM
== END | disposition home or self-care (01) ==
LOC: RADBDWWP 14:54
PROVIDERS: ATTEND Family Medicine
DX: Z12.31 Encounter for screening mammogram for malignant neoplasm of breast (principal); Z78.0 Asymptomatic menopausal state; Z90.722 Acquired absence of ovaries, bilateral
CPT/HCPCS: 77063; 77067; 77080

== ENCOUNTER 2024-04-30 14:26 | Emergency (ER) | payer MEDICARE ==
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
--- NOTE | 2024-04-30 15:42 | XR ---
EXAMINATION TYPE: XR chest 2V DATE OF EXAM: 04/30/2024 3:38 PM COMPARISON: CT 10/01/2023 compatible with prominent vessels. CLINICAL INDICATION: Female, 73 years old with history of rib pain chest pain; [facility] TECHNIQUE: XR chest 2V Frontal and lateral views of the chest. FINDINGS: Lungs/Pleura: There is no evidence of pleural effusion, focal consolidation, or pneumothorax. Right perihilar fullness compatible with prominent vessels on prior CT. Pulmonary vascularity: Unremarkable. Heart/mediastinum: Cardiomediastinal silhouette is prominent in size. Two lead cardiac conduction dev ice overlying the left hemithorax with lead tips projecting over the right ventricle and right atrium . Musculoskeletal: No acute osseous pathology. IMPRESSION: No evidence for acute process. [facility], Workstation: [id number], 04/30/2024 3:40 PM
--- NOTE | 2024-04-30 15:45 | XR ---
EXAMINATION TYPE: XR ribs bilateral DATE OF EXAM: 04/30/2024 3:38 PM COMPARISON: 04/30/2024 CLINICAL INDICATION: Female, 73 years old with history of pain; TECHNIQUE: XR ribs bilateral; Frontal and oblique views of the ribs with frontal chest radiograph. FINDINGS/IMPRESSION: * Limited evaluation secondary to overlapping bony structures including chondrocalcinosis. No displa camryn rib fractures definitively visualized. If there remains concern consider CT imaging. * Vascular stent present. Cardiac conduction leads project over the right atrium and right ventricle . Multilevel degeneration changes throughout the spine. [facility], Workstation: [id number], 04/30/2024 3:43 PM
[2024-04-30] MEDS: LIDOCAINE 4% PATCH TOPICAL ONE (17:34)
[2024-04-30] MEDS: ACET/COD 300 MG/30 MG STARTER PACK 6 TAB BTL PO STA (17:34)
[2024-04-30] MEDS: Acetaminophen-Codeine 300-30mg TAB PO STA (17:34)
[2024-04-30] MEDS: ACETAMINOPHEN TAB 500 MG TAB PO STA (17:36)
[2024-04-30 17:43] VITALS: BP 146/79; PULSE 66; RESP 18; TEMP 98
== END 2024-04-30 17:42 | disposition home or self-care (01) ==
LOC: EC 14:26
DX: S22.32XA Fracture of one rib, left side, initial encounter for closed fracture (principal); Z91.041 Radiographic dye allergy status; Z91.09 Other allergy status, other than to drugs and biological substances; Z91.013 Allergy to seafood; Z88.1 Allergy status to other antibiotic agents; Z91.040 Latex allergy status; Z88.8 Allergy status to other drugs, medicaments and biological substances; W22.03XA Walked into furniture, initial encounter
CPT/HCPCS: 71046; 71110; 99283

== ENCOUNTER 2024-09-14 13:08 | Observation (INO) | payer MEDICARE ==
[2024-09-14 13:22] LABS: Glucose,Whole Blood 94 mg/dL (70-110)
[2024-09-14 14:17] LABS: Basophils # (A) 0.04 10*3/uL (0.00-0.10); Basophils % (A) 0.5 %; Eosinophils # (A) 0.21 10*3/uL (0.04-0.35); Eosinophils % (A) 2.6 %; HCT 37.6 % (37.2-46.3); HGB 12.5 g/dL (12.0-15.0); Lymphocytes % (A) 22.2 %; MCHC 33.2 g/dL (32.0-37.0); MCV 90.4 fL (80.0-97.0); Mean Platelet Volume 9.8 fL (9.5-12.2); Monocytes # (A) 0.77 10*3/uL (0.20-1.00); Monocytes % (A) 9.5 %; Neutrophils # (A) 5.28 10*3/uL (1.80-7.70); Platelet Count 283 10*3/uL (140-440); RBC 4.16 10*6/uL (4.10-5.20); RDW 14.6 % (11.5-14.5); WBC 8.12 10*3/uL (4.50-10.00)
[2024-09-14] MEDS: ASPIRIN 81 MG PO STA (14:22)
[2024-09-14] MEDS: NITROGLYCERIN OINT 1 INCH/GM PACKET TOPICAL STA (14:22)
[2024-09-14 14:27] LABS: INR 1.3 (<1.2); Partial Thromboplastin Time 25.4 sec (22.0-30.0); Prothrombin Time 13.4 sec (10.0-12.5)
--- NOTE | 2024-09-14 14:38 | ED ---
General Adult HPI - General Chief complaint: Chest Pain Stated complaint: SOB Time Seen by Provider: 09/14/24 13:20 Source: patient, RN notes reviewed, old records reviewed Mode of arrival: wheelchair Limitations: no limitations - History of Present Illness Initial comments: This is a 74-year-old female with past medical history significant for congesti ve heart failure stent diabetes hypertension. Patient comes in today because since she has been having some chest pressure sensation so she went to see her primary medical care doctor and they sent her into the emergency department to be evaluated. Patient states the pain in the chest seem to radiate up into her throat. Patient also states she was mildly short of breath. Patient denies nausea patient states she is feeling a little better but she still feeling some pressure. Patient denies any recent fever or chills. Patient has chronic cellulitis of the leg and that is unchanged. - Related Data Home Medications Medication Instructions Recorded Confirmed Atorvastatin [Lipitor] 40 mg PO HS 10/22/17 10/01/23 metFORMIN HCL [Glucophage] 850 mg PO TID 10/30/17 10/01/23 Insulin Glargine,Hum.rec.anlog 10 units SQ HS 12/16/17 10/01/23 [Toujeo Solostar] Furosemide [Lasix] 40 mg PO BID 06/04/18 10/01/23 Ferrous Sulfate [Iron (65 MG 325 mg PO BID 01/19/19 10/01/23 Elemental)] allopurinoL [Zyloprim] 100 mg PO DAILY 03/25/19 10/01/23 calcitrioL 0.25 mcg PO Q48H 03/25/19 10/01/23 Sacubitril/Valsartan [Entresto 24 1 tab PO BID 04/13/19 10/01/23 mg-26 mg Tablet] Cholecalciferol [Vitamin D3 (25 25 mcg PO HS 10/02/20 10/01/23 Mcg = 1000 Iu)] Metoprolol Tartrate [Lopressor] 50 mg PO DAILY 01/30/21 10/01/23 Brimonidine Tartrate [Alphagan P 1 drop BOTH EYES BID 09/14/23 10/01/23 0.2% Ophth Soln] Dapagliflozin Propanediol [Farxiga] 10 mg PO DAILY 05/04/24 05/21/24 Multivitamins, Thera [Multivitamin 1 tab PO DAILY@1200 10/01/23 10/01/23 (formulary)] Triamcinolone 0.1% Cream [Kenalog 1 applicatio TOPICAL BID 10/01/23 10/01/23 0.1% Cream] Previous Rx's Medication Instructions Recorded Acetaminophen Tab [Tylenol] 650 mg PO Q6HR PRN tab 09/23/23 Edoxaban Tosylate [Savaysa] 30 mg PO DAILY #30 tab 09/23/23 diphenhydrAMINE & Zinc Cream 1 applic TOPICAL BID PRN #28 gm 09/23/23 [Benadryl Cream] diphenhydrAMINE [Benadryl] 25 mg PO BID PRN #20 capsule 09/23/23 Lidocaine 5% Patch [Lidoderm 5% 1 patch TOPICAL DAILY 7 Days #7 04/30/24 Patch] patch Allergies Allergy/AdvReac Type Severity Reaction Status Date / Time Iodinated Contrast Media Allergy Severe THROAT Verified 09/14/24 13:21 [Iodinated Contrast Media - SWELLING Oral and] iodine Allergy Severe THROAT Verified 09/14/24 13:21 SWELLING, RASH shellfish derived Allergy Severe THROAT Verified 09/14/24 13:21 SWELLING, RASH cefazolin sodium Allergy Dyspnea Verified 09/14/24 13:21 [From Kefzol] Latex, Natural Rubber Allergy Rash/Hives Verified 09/14/24 13:21 levofloxacin [From Levaquin] Allergy Rash/Hives Verified 09/14/24 13:21 piperacillin sodium Allergy THROAT Verified 09/14/24 13:21 [From Zosyn] SWELL, RASH tazobactam sodium Allergy THROAT Verified 09/14/24 13:21 [From Zosyn] SWELL, RASH verapamil AdvReac Severe Hallucinati Verified 09/14/24 13:21 ons seafood Allergy Severe throat Uncoded 09/14/24 13:21 swelling Review of Systems ROS Statement: Those systems with pertinent positive or pertinent negative responses have been documented in the HPI. ROS Other: All systems not noted in ROS Statement are negative. Past Medical History Past Medical History: Atrial Fibrillation, Heart Failure, Diabetes Mellitus, Eye Disorder, Hyperlipidemia, Osteoarthritis (OA), Pneumonia, Skin Disorder, Vascular Disorder Additional Past Medical History / Comment(s): Chronic Venous Stasis BLE w/ chronic ulceration of the left lower extremity, current small area still left leg, CAD W/ coronary stenting Rt PDA 2013. History of kidney stones. Pacemaker (Brand:ST DAPHNE). HAS CATARACT LT. WOUNDS LLE, USING SILVADENE CREAM. EDEMA BLE. seeing Dr Calderon r/t kidney function. Small wound LLE. History of Any Multi-Drug Resistant Organisms: None Reported Past Surgical History: Cardiac Ablation, Heart Catheterization, Heart Catheterization With Stent, Hysterectomy, Pacemaker, Tubal Ligation Additional Past Surgical History / Comment(s): states has had mult sx on veins left leg, [place] with cardioversion, varicose vein stripping, one cardiac stent, rt cataract, kidney stone sx, LLE surgery with stent and skin grafting. ANEMIA- BLOOD TRANSFUSIONS. Past Anesthesia/Blood Transfusion Reactions: No Reported Reaction Additional Past Anesthesia/Blood Transfusion Reaction / Comment(s): PONV 40 PLUS YEARS AGO, AFTER REMOVAL KIDNEY STONE. Date of Last Stent Placement:: November 2013 Type of Cardiac Device: Permanent Pacemaker Device Placement Date:: 10/30/2017 Past Psychological History: No Psychological Hx Reported Smoking Status: Never smoker Past Alcohol Use History: None Reported Past Drug Use History: None Reported - Past Family History Father History Unknown: Yes Family Medical History: No Reported History Additional Family Medical History / Comment(s): Aneurysm, passed in 2000. Mother Family Medical History: Cancer Additional Family Medical History / Comment(s): Bladder and has since passed. General Exam - General Exam Comments Initial Comments: GENERAL: Patient is well-developed and well-nourished. Patient is nontoxic and well- hydrated and is in mild distress. ENT: Neck is soft and supple. No significant lymphadenopathy is noted. Oropharynx is clear. Moist mucous membranes. Neck has full range of motion without eliciting any pain. EYES: The sclera were anicteric and conjunctiva were pink and moist. Extraocular movements were intact and pupils were equal round and reactive to light. Eyelids were unremarkable. PULMONARY: Unlabored respirations. Good breath sounds bilaterally. No audible rales rhonchi or wheezing was noted. CARDIOVASCULAR: There is a regular rate and rhythm without any murmurs gallops or rubs. ABDOMEN: Soft and nontender with normal bowel sounds. SKIN: Skin is clear with no lesions or rashes and otherwise unremarkable. NEUROLOGIC: Patient is alert and oriented x3. Cranial nerves II through XII are grossly intact. Motor and sensory are also intact. Normal speech, volume and content. Symmetrical smile. MUSCULOSKELETAL: Normal extremities with adequate strength and full range of motion. No lower extremity swelling or edema. No calf tenderness. LYMPHATICS: No significant lymphadenopathy is noted PSYCHIATRIC: Normal psychiatric evaluation. Limitations: no limitations Course Vital Signs 09/14/24 09/14/24 13:15 13:45 Temperature 97.6 F Pulse Rate 60 61 Respiratory 18 20 Rate Blood Pressure 166/77 O2 Sat by Pulse 98 Oximetry Medical Decision Making - Medical Decision Making EKG is interpreted by myself but EKG shows a paced rhythm at 68 bpm QRS is 165 QT interval is 466 QTc is 466. EKG paced rhythm Was pt. sent in by a medical professional or institution (, [facility], [facility], urgent care, hospital, or senior care...) When possible be specific @ -No Did you speak to anyone other than the patient for history (EMS, parent, family, police, friend...)? What history was obtained from this source @ -No Did you review nursing and triage notes (agree or disagree)? Why? @ -I reviewed and agree with nursing and triage notes Were old charts reviewed (outside hosp., previous admission, EMS record, old EKG, old radiological studies, urgent care reports/EKG's, senior care records)? Report findings @ -No old charts were reviewed Differential Diagnosis? @ -Differential Chest Pain: Stable Angina, Unstable Angina, STEMI, NSTEMI Aortic Dissection, Pneumothorax, Musculoskeletal, Esophageal Spasm GERD, Cholecystitis, Pancreatitis, Zoster, this is not meant to be an all-inclusive list. EKG interpreted by me (3pts min.). @ -As above X-rays interpreted by me (1pt min.). @ -None done CT interpreted by me (1pt min.). @ -Chest x-ray shows mild pulmonary edema U/S interpreted by me (1pt. min.). @ -None done What testing was considered but not performed or refused? (CT, X-rays, U/S, labs)? Why? @ -None What meds were considered but not given or refused? Why? @ -None Did you discuss the management of the patient with other professionals (professionals i.e. , HARINDER, [facility], lab, RT, psych nurse, clinical social work aide, spool sander, teacher, marketing and communications officer, caser)? Give summary @ -Spoke with Dr. Juarez about this patient. I also spoke with the [facility] hospitalist who agreed to admit the patient. Was smoking cessation discussed for >3mins.? @ -No Was critical care preformed (if so, how long)? @ -No Were there social determinants of health that impacted care today? How? (Homelessness, low income, unemployed, alcoholism, drug addiction, transportation, low edu. Level, literacy, decrease access to med. care, halfway, rehab)? @ -No Was there de-escalation of care discussed even if they declined (Discuss DNR or withdrawal of care, Hospice)? DNR status @ -No What co-morbidities impacted this encounter? (DM, HTN, Smoking, COPD, CAD, Cancer, CVA, ARF, Chemo, Hep., AIDS, mental health diagnosis, sleep apnea, morbid obesity)? @ -None Was patient admitted / discharged? Hospital course, mention meds given and route, prescriptions, significant lab abnormalities, going to OR and other pert inent info. @ -Patient will be admitted for chest pain. Patient also has a little pulmonary edema and Lasix will be given to her. [facility] Undiagnosed new problem with uncertain prognosis? @ -No Drug Therapy requiring intensive monitoring for toxicity (Heparin, Nitro, Insulin, Cardizem)? @ -No Were any procedures done? @ -No Diagnosis/symptom? @ -Chest pain Acute, or Chronic, or Acute on Chronic? @ -Acute Uncomplicated (without systemic symptoms) or Complicated (systemic symptoms)? @ -Counseled Side effects of treatment? @ -No Exacerbation, Progression, or Severe Exacerbation? @ -No Poses a threat to life or bodily function? How? (Chest pain, USA, DE, pneumonia, PE, COPD, DKA, ARF, appy, cholecystitis, CVA, Diverticulitis, Homicidal, Suicidal, threat to staff... and all critical care pts) @ -Yes this can lead to an DE and endorgan dysfunction Diagnosis/symptom? @ -Pulmonary edema Acute, or Chronic, or Acute on Chronic? @ -Acute on chronic Uncomplicated (without systemic symptoms) or Complicated (systemic symptoms)? @ -Complicated Side effects of treatment? @ -None Exacerbation, Progression, or Severe Exacerbation] @ -No Poses a threat to life or bodily function? @ -Yes this can lead to hypoxia and endorgan dysfunction - Lab Data Result diagrams: 09/14/24 14:07 09/14/24 14:07 Lab Results 09/14/24 09/14/24 09/14/24 Range/Units 13:20 14:07 14:07 WBC 8.12 (4.50-10.00) 10*3/uL RBC 4.16 (4.10-5.20) 10*6/uL Hgb 12.5 (12.0-15.0) g/dL Hct 37.6 (37.2-46.3) % MCV 90.4 (80.0-97.0) fL MCH 30.0 (27.0-32.0) pg MCHC 33.2 (32.0-37.0) g/dL Plt Count 283 (140-440) 10*3/uL MPV 9.8 (9.5-12.2) fL Immature Gran % (Auto) 0.2 % Neutrophils % 65.0 % Lymphocytes % 22.2 % Monocytes % 9.5 % Eosinophils % 2.6 % Basophils % 0.5 % Immature Gran # 0.02 (0.00-0.04) 10*3/uL Neutrophils # 5.28 (1.80-7.70) 10*3/uL Lymphocytes # 1.80 (0.90-5.00) 10*3/uL Monocytes # 0.77 (0.20-1.00) 10*3/uL Eosinophils # 0.21 (0.04-0.35) 10*3/uL Basophils # 0.04 (0.00-0.10) 10*3/uL PT 13.4 H (10.0-12.5) sec INR 1.3 H (<1.2) APTT 25.4 (22.0-30.0) sec Sodium (137-145) mmol/L Potassium (3.5-5.1) mmol/L Chloride (98-107) mmol/L Carbon Dioxide (22-30) mmol/L Anion Gap mmol/L BUN (7-17) mg/dL Creatinine (0.52-1.04) mg/dL Est GFR (CKD-EPI)AfAm (>60 ml/min/1.73 sqM) Est GFR (CKD-EPI)NonAf (>60 ml/min/1.73 sqM) Glucose (74-99) mg/dL POC Glucose (mg/dL) 94 (70-110) mg/dL POC Glu Investigation Division Captain ID Williams Reyes Calcium (8.4-10.2) mg/dL Magnesium (1.6-2.3) mg/dL Total Bilirubin (0.2-1.3) mg/dL AST (14-36) U/L ALT (4-34) U/L Alkaline Phosphatase (38-126) U/L Troponin I (0.000-0.034) ng/mL NT-Pro-B Natriuret Pep pg/mL Total Protein (6.3-8.2) g/dL Albumin (3.5-5.0) g/dL 09/14/24 09/14/24 Range/Units 14:07 14:07 WBC (4.50-10.00) 10*3/uL RBC (4.10-5.20) 10*6/uL Hgb (12.0-15.0) g/dL Hct (37.2-46.3) % MCV (80.0-97.0) fL MCH (27.0-32.0) pg MCHC (32.0-37.0) g/dL Plt Count (140-440) 10*3/uL MPV (9.5-12.2) fL Immature Gran % (Auto) % Neutrophils % % Lymphocytes % % Monocytes % % Eosinophils % % Basophils % % Immature Gran # (0.00-0.04) 10*3/uL Neutrophils # (1.80-7.70) 10*3/uL Lymphocytes # (0.90-5.00) 10*3/uL Monocytes # (0.20-1.00) 10*3/uL Eosinophils # (0.04-0.35) 10*3/uL Basophils # (0.00-0.10) 10*3/uL PT (10.0-12.5) sec INR (<1.2) APTT (22.0-30.0) sec Sodium 143 (137-145) mmol/L Potassium 5.1 (3.5-5.1) mmol/L Chloride 101 (98-107) mmol/L Carbon Dioxide 26 (22-30) mmol/L Anion Gap 16 mmol/L BUN 41 H (7-17) mg/dL Creatinine 1.42 H (0.52-1.04) mg/dL Est GFR (CKD-EPI)AfAm 43 (>60 ml/min/1.73 sqM) Est GFR (CKD-EPI)NonAf 37 (>60 ml/min/1.73 sqM) Glucose 93 (74-99) mg/dL POC Glucose (mg/dL) (70-110) mg/dL POC Glu Investigation Division Captain ID Calcium 9.7 (8.4-10.2) mg/dL Magnesium 1.8 (1.6-2.3) mg/dL Total Bilirubin 0.7 (0.2-1.3) mg/dL AST 22 (14-36) U/L ALT 12 (4-34) U/L Alkaline Phosphatase 54 (38-126) U/L Troponin I 0.013 (0.000-0.034) ng/mL NT-Pro-B Natriuret Pep 5350 pg/mL Total Protein 7.3 (6.3-8.2) g/dL Albumin 4.4 (3.5-5.0) g/dL Disposition Clinical Impression: Chest pain, Acute pulmonary edema Disposition: ADMITTED IP TO THIS HOSP Referrals: Edgardo Juarez MD [Primary Care Provider] - 1-2 days Time of Disposition: 15:48
[2024-09-14 14:49] LABS: ALT 12 U/L (4-34); AST 22 U/L (14-36); African American GFR (CKD) 43 (>60 ml/min/1.73 sqM); Albumin 4.4 g/dL (3.5-5.0); Alkaline Phosphatase 54 U/L (38-126); Anion Gap 16 mmol/L; Blood Urea Nitrogen 41 mg/dL (7-17); Calcium 9.7 mg/dL (8.4-10.2); Carbon Dioxide 26 mmol/L (22-30); Chloride 101 mmol/L (98-107); Glucose 93 mg/dL (74-99); Magnesium 1.8 mg/dL (1.6-2.3); Non-African American GFR(CKD) 37 (>60 ml/min/1.73 sqM); Potassium 5.1 mmol/L (3.5-5.1); Sodium 143 mmol/L (137-145); Total Bilirubin 0.7 mg/dL (0.2-1.3); Total Protein 7.3 g/dL (6.3-8.2)
[2024-09-14 14:57] LABS: NT-Pro-B-Type Natriuretic Pept 5350 pg/mL
--- NOTE | 2024-09-14 15:13 | XR ---
EXAMINATION TYPE: XR chest 2V DATE OF EXAM: 09/14/2024 3:03 PM COMPARISON: 04/30/2024 CLINICAL INDICATION: Female, 74 years old with history of Chest Pain, , TECHNIQUE: AP and lateral views FINDINGS: Left anterior chest wall pacemaker generator with right atrial and right ventricular leads. Heart bor derline enlarged. Interstitial/vascular prominence. No consolidation or pleural effusion. IMPRESSION: Borderline cardiomegaly. Correlate to exclude mild pulmonary vascular congestion. [facility], , 09/14/2024 3:11 PM
[2024-09-14] MEDS ORDERED: NITROGLYCERIN SL TABS 0.4 MG TAB SUBLINGUAL PRN (15:49)
[2024-09-14] MEDS: FUROSEMIDE 10 MG/ML 2 ML VIAL IV SCH (16:17)
--- NOTE | 2024-09-14 18:17 | P.HPIM ---
History of Present Illness H&P Date: 09/14/24 Chief Complaint: Chest pressure Patient is a 74-year-old female with a past medical history of coronary disease with stent placement to mid PDA, permanent atrial fibrillation on anticoagulation with edoxaban, permanent pacemaker placement, valvular heart disease, moderate pulmonary hypertension, chronic CHF with mildly reduced ejection fraction 45%, diabetes type 2, chronic venous stasis of the bilateral lower extremity with chronic ulceration of the left lower extremity, osteoarthritis and other medical problems presents to the ER with complaints of mid sternal pressure-like sensation and difficulty in breathing. Patient was seen by her primary care physician and was sent to ER. Denied any radiation of the pain. Mild nausea. No associated vomiting. No headache or dizziness. Denied any recent illnesses. Does have cough without any sputum production. Patient states that she gained some weight and also increased swelling of the lower extremities. Patient does have chronic ulceration of the left lower extremity and swelling. On admission blood pressure 166/77 pulse is 60 respiration 18 and pulse ox 98% on room air. EKG showed electronic ventricular paced rhythm. Chest x-ray showed borderline cardiomegaly. Correlate to exclude mild pulmonary vascular congestion. Laboratory data showed WBC 8.1 hemoglobin 12.5 and platelets 283 INR 1.3 sodium 143 potassium 5.1 chloride 101 bicarb is 26 BUN 41 and creatinine 1.42. Liver enzymes are not elevated. Magnesium 1.8 and troponin 0.013 and proBNP 5350. Review of Systems Constitutional: Patient denies any fever or chills . No generalized weakness. Complains of weight gain.. Abdomen: Patient denied nausea vomiting and diarrhea and abdominal pain. Cardiovascular: Patient complains of chest pressure and r short of breath no palpitations. Leg swelling. Respiratory: patient denied any cough or sputum production. Mild shortness of breath Neurologic: Patient denied any numbness or tingling. no headache. Musculoskeletal: Patient denies any complaints of joint swelling or deformity. Skin: Negative Psychiatric: Negative Endocrine: No heat or cold intolerance. No recent weight gain. Genitourinary: No dysuria or hematuria. All other 14 point ROS negative except the above Past Medical History Past Medical History: Atrial Fibrillation, Heart Failure, Diabetes Mellitus, Eye Disorder, Hyperlipidemia, Osteoarthritis (OA), Pneumonia, Skin Disorder, Vascular Disorder Additional Past Medical History / Comment(s): Chronic Venous Stasis BLE w/ chronic ulceration of the left lower extremity, current small area still left leg, CAD W/ coronary stenting Rt PDA 2013. History of kidney stones. Pacemaker (Brand:ST DAPHNE). HAS CATARACT LT. WOUNDS LLE, USING SILVADENE CREAM. EDEMA BLE. seeing Dr Calderon r/t kidney function. Small wound LLE. History of Any Multi-Drug Resistant Organisms: None Reported Past Surgical History: Cardiac Ablation, Heart Catheterization, Heart Catheterization With Stent, Hysterectomy, Pacemaker, Tubal Ligation Additional Past Surgical History / Comment(s): states has had mult sx on veins left leg, [place] with cardioversion, varicose vein stripping, one cardiac stent, rt cataract, kidney stone sx, LLE surgery with stent and skin grafting. ANEMIA- BLOOD TRANSFUSIONS. Past Anesthesia/Blood Transfusion Reactions: No Reported Reaction Additional Past Anesthesia/Blood Transfusion Reaction / Comment(s): PONV 40 PLUS YEARS AGO, AFTER REMOVAL KIDNEY STONE. Date of Last Stent Placement:: November 2013 Type of Cardiac Device: Permanent Pacemaker Device Placement Date:: 10/30/2017 Past Psychological History: No Psychological Hx Reported Smoking Status: Never smoker Past Alcohol Use History: None Reported Past Drug Use History: None Reported - Past Family History Father History Unknown: Yes Family Medical History: No Reported History Additional Family Medical History / Comment(s): Aneurysm, passed in 2000. Mother Family Medical History: Cancer Additional Family Medical History / Comment(s): Bladder and has since passed. Medications and Allergies Home Medications Medication Instructions Recorded Confirmed Type Atorvastatin [Lipitor] 40 mg PO HS 10/22/17 09/14/24 History metFORMIN HCL [Glucophage] 850 mg PO TID 10/30/17 09/14/24 History Insulin Glargine,Hum.rec.anlog 10 units SQ DAILY 12/16/17 09/14/24 History [Toujeo Solostar] Ferrous Sulfate [Iron (65 MG 325 mg PO DAILY 01/19/19 09/14/24 History Elemental)] allopurinoL [Zyloprim] 100 mg PO DAILY 03/25/19 09/14/24 History calcitrioL 0.25 mcg PO DAILY 03/25/19 09/14/24 History Sacubitril/Valsartan [Entresto 24 1 tab PO BID 04/13/19 09/14/24 History mg-26 mg Tablet] Metoprolol Tartrate [Lopressor] 50 mg PO DAILY 01/30/21 09/14/24 History Brimonidine Tartrate [Alphagan P 1 drop RIGHT EYE BID 09/14/23 09/14/24 History 0.2% Ophth Soln] Dapagliflozin Propanediol [Farxiga] 10 mg PO DAILY 09/14/23 09/14/24 History Edoxaban Tosylate [Savaysa] 30 mg PO DAILY #30 tab 09/23/23 09/14/24 Rx Aspirin EC [Ecotrin Low Dose] 81 mg PO DAILY 09/14/24 09/14/24 History Cholecalciferol (Vitamin D3) 50 mcg PO DAILY 09/14/24 09/14/24 History [Vitamin D3 (50 Mcg = 2000 Iu)] Dulaglutide [Trulicity] 3 mg SQ SA 09/14/24 09/14/24 History Furosemide [Lasix] 20 mg PO BID@0900,1600 09/14/24 09/14/24 History Silver Sulfadiazine [SSD 1% Cream] 1 applic TOPICAL BID 09/14/24 09/14/24 History amLODIPine [Norvasc] 10 mg PO DAILY 09/14/24 09/14/24 History Allergies Allergy/AdvReac Type Severity Reaction Status Date / Time Iodinated Contrast Media Allergy Severe THROAT Verified 09/14/24 17:00 [Iodinated Contrast Media - SWELLING Oral and] iodine Allergy Severe THROAT Verified 09/14/24 17:00 SWELLING, RASH shellfish derived Allergy Severe THROAT Verified 09/14/24 17:00 SWELLING, RASH cefazolin sodium Allergy Dyspnea Verified 09/14/24 17:00 [From Kefzol] Latex, Natural Rubber Allergy Rash/Hives Verified 09/14/24 17:00 levofloxacin [From Levaquin] Allergy Rash/Hives Verified 09/14/24 17:00 piperacillin sodium Allergy THROAT Verified 09/14/24 17:00 [From Zosyn] SWELL, RASH tazobactam sodium Allergy THROAT Verified 09/14/24 17:00 [From Zosyn] SWELL, RASH verapamil AdvReac Severe Hallucinati Verified 09/14/24 17:00 ons seafood Allergy Severe throat Uncoded 09/14/24 17:00 swelling Physical Exam Vitals: Vital Signs Temp Pulse Resp BP Pulse Ox 09/14/24 16:07 60 18 178/80 96 09/14/24 13:45 61 20 09/14/24 13:15 97.6 F 60 18 166/77 98 Intake and Output 09/14/24 09/14/24 09/14/24 06:59 14:59 22:59 Other: Weight 102.058 kg PHYSICAL EXAMINATION: Patient is lying in the bed,, no acute distress, awake alert and oriented.. HEENT: Normocephalic. Neck is supple. Pupils reactive. Nostrils clear. Oral cavity is moist. Neck reveals no JVD, carotid bruits, or thyromegaly. CHEST EXAMINATION: Trachea is central. Symmetrical expansion. Bibasilar coarse sounds. Nonlabored breathing.. CARDIAC: Normal S1, S2 with no gallops. Systolic murmur. ABDOMEN: Soft. Bowel sounds normal. No organomegaly. No abdominal bruits. Extremities: Bilateral lower extremity 2+ edema. Chronic venous stasis changes and small ulcer on the left lower extremity. No drainage or purulence noted. No clubbing or cyanosis Neurologically awake, alert, oriented x3 with well-coordinated movements. No gross focal deficits noted Skin: No rash or skin lesions. Psychiatric: Coperative. Nonsuicidal Musculoskeletal: No joint swelling or deformity. Normal range of motion. Results CBC & Chem 7: 09/14/24 14:07 09/14/24 14:07 Labs: Abnormal Lab Results - Last 24 Hours (Table) 09/14/24 09/14/24 Range/Units 14:07 14:07 PT 13.4 H (10.0-12.5) sec INR 1.3 H (<1.2) BUN 41 H (7-17) mg/dL Creatinine 1.42 H (0.52-1.04) mg/dL Thrombosis Risk Factor Assmnt - DVT/VTE Prophylaxis DVT/VTE Prophylaxis: Pharmacologic Prophylaxis ordered Assessment and Plan Assessment: Chest pressure. Rule out ACS. Acute on chronic CHF with mildly reduced ejection fraction 45% Coronary artery disease with history of stent placement to mid PDA in 2013 Permanent atrial fibrillation on anticoagulation with the exacerbation History of AV marck ablation with permanent pacemaker placement Moderate pulmonary hypertension Uncontrolled hypertension Hyperlipidemia Diabetes type 2 Acute on CKD stage III with baseline creatinine 1.1. Creatinine 1.42 on adm ission Chronic lower extremity bilateral venous stasis with small ulcer on the left DVT prophylaxis patient is already on anticoagulation Plan: Patient will be continued on phototypesetting equipment monitor. Serial EKG and troponin x 3. Patient was started on Lasix 20 mg IV Q8. Continue with aspirin, statin, Far xiga Entresto and metoprolol. Cardiology evaluation. Insulin sliding scale and regimen. Wound care of the lower extremity ulcer. Continue to monitor renal function. Follow-up closely. Time with Patient: Greater than 30
[2024-09-14] MEDS: NITROGLYCERIN OINT 1 INCH/GM PACKET TOPICAL SCH (18:59)
[2024-09-14] MEDS: SACUBITRIL/VALSARTAN 24 MG-26 MG TABLET PO SCH (22:07)
[2024-09-14] MEDS: ATORVASTATIN 40 MG TAB PO SCH (22:07)
[2024-09-14] MEDS: BRIMONIDINE TARTRATE 0.2% DROPS 5 ML BTL RIGHT EYE SCH (22:07)
[2024-09-15 05:28] LABS: Glucose,Whole Blood 121 mg/dL (70-110)
[2024-09-15] MEDS ORDERED: CAFFEINE CITRATE 60 MG/3 ML VIAL IV PRN (08:46)
[2024-09-15] MEDS ORDERED: REGADENOSON 0.4 MG/5 ML SYRINGE IV PRN (08:46)
[2024-09-15] MEDS ORDERED: AMINOPHYLLINE 500 MG/20 ML VIAL IV PRN (08:46)
[2024-09-15 08:47] LABS: Basophils # (A) 0.04 X 10*3/uL (0.00-0.10); Basophils % (A) 0.6 %; Eosinophils # (A) 0.24 X 10*3/uL (0.04-0.35); Eosinophils % (A) 3.6 %; HCT 36.2 % (37.2-46.3); HGB 12.4 g/dL (12.0-15.0); Lymphocytes # (A) 1.75 X 10*3/uL (0.90-5.00); Lymphocytes % (A) 26.2 %; MCH 31.2 pg (27.0-32.0); MCHC 34.3 g/dL (32.0-37.0); Mean Platelet Volume 10.9 FL (9.5-12.2); Monocytes % (A) 10.5 %; NRBC Per 100 WBC 0 X 10*3/uL (0.00-0.01); Neutrophils # (A) 3.93 X 10*3/uL (1.80-7.70); Neutrophils % (A) 58.7 %; Platelet Count 321 X 10*3/uL (140-440); RBC 3.98 X 10*6/uL (4.10-5.20); RDW 14.9 % (11.5-14.5); WBC 6.69 X 10*3/uL (4.50-10.00)
[2024-09-15] MEDS ORDERED: ASPIRIN 325 MG TAB PO SCH (09:00)
[2024-09-15 09:04] LABS: BUN/Creat Ratio 26.69 Ratio (12.00-20.00); Blood Urea Nitrogen 42.7 mg/dL (9.0-27.0); Calcium 9.2 mg/dL (8.7-10.3); Carbon Dioxide 23.9 mmol/L (21.6-31.8); Chloride 101 mmol/L (96-109); Chol/HDL Ratio 3.07 Ratio; Glucose 123 mg/dL (70-110); LDL Cholesterol,Calculated 49.8 mg/dL (0.0-131.0); Potassium 4.4 mmol/L (3.5-5.5); Sodium 141 mmol/L (135-145)
[2024-09-15] MEDS: ASPIRIN 81 MG PO SCH (09:11)
[2024-09-15] MEDS: FUROSEMIDE 40 MG TAB PO SCH (09:11)
[2024-09-15] MEDS: DAPAGLIFLOZIN PROPANEDIOL 10 MG TABLET PO SCH (09:11)
[2024-09-15] MEDS: allopurinoL 100 MG TAB PO SCH (09:11)
[2024-09-15] MEDS: ACETAMINOPHEN TAB 325 MG TAB PO PRN (09:11)
[2024-09-15] MEDS: METOPROLOL TARTRATE 50 MG TAB PO SCH (09:11)
[2024-09-15] MEDS: EDOXABAN TOSYLATE 30 MG TABLET PO SCH (09:11)
[2024-09-15] MEDS: amLODIPine 10 MG TAB PO SCH (09:11)
[2024-09-15 09:14] LABS: Vitamin B12 <150.0 pg/mL (200.0-944.0)
--- NOTE | 2024-09-15 10:42 | CA ---
Lexiscan Nuclear Stress Test Report Name: Osiris Mendoza Exam Date: 09/15/2024 10:05 Exam Location: [place] Stress Ht (in): 66 Wt (lb): 223 BSA: 2.09 Ordering Phys: Bhavani Pringle Referring Phys: MANISH Technologist: ALAN BARNES Age: 74 Gender: F : 1950 Procedure CPT: Indications: Reflex order-Stress test ICD-10 Codes: Patient History: Medications: SEE CHART,,, Meds past 24 hrs: Pretest Chest Pain: STRESS TEST Lexiscan Protocol Exercise Duration (min:sec): 02:[address] Depressions (mm): Angina Score: Montes De Oca Score: Resting HR (bpm): 60 Peak HR (bpm): 62 Resting BP (mmHg): 116 / 62 Peak BP (mmHg): 133 / 64 MPHR: 148 Target HR: 126 % MPHR: 42 METS: 1.0 Total Dose: Peak Dose: Atropine: Double Product: 8246 BP Response: Stress Termination: INFUSION COMPLETE Stress Symptoms: NO SYMPTOMS Stress Summary: ECG ANALYSIS Resting ECG: Stress ECG: CONCLUSIONS Baseline EKG revealed ventricular paced rhythm. With Lexiscan administration there were no significant EKG changes. Patient did not have any significant symptoms. Resting heart rate was 60 bpm without much change and the blood pressure changed from 116/62 to 133/64. No symptoms. This is an inconclusive Lexiscan stress test by EKG criteria. The nuclear scan results will be reported by the radiology Dr. Mo Patel MD (Electronically Signed) Final Date: 15 Sep 2024 10:41
--- NOTE | 2024-09-15 11:11 | P.CRDCN ---
History of Present Illness History of present illness: HISTORY OF PRESENT ILLNESS: This is a 74-year-old female with a past medical history significant for atrial fibrillation, hypertension, hyperlipidemia, diabetes, congestive heart failure, and obesity. Patient follows in the office with Dr. Ralph. We have been asked to see the patient in consultation for chest pain and CHF. Patient examined at the bedside. Patient presented to the hospital yesterday with a chief complaint of shortness of breath. She went to see her PCP Dr. Juarez and was directed to come to the emergency room for further evaluation. She also reports yesterday she felt like something was sitting on her chest. She currently denies any chest pain or pressure. She denies any shortness of breath. Vital signs are stable. DIAGNOSTICS: - EKG reveals ventricular paced rhythm. - Chest xray borderline cardiomegaly. Correlate to exclude mild pulmonary vascular congestion. - Laboratory data: WBC 6.69. Hemoglobin 12.9. Platelet count 321. Sodium 141. Potassium 4.4. BUN 42. Creatinine 1.6. Troponin negative x 3. proBNP 5350. - Current home cardiac medications include aspirin 81 mg daily, Farxiga 10 mg daily, Entresto 24-26 mg twice a day, amlodipine 10 mg daily, Lasix 20 mg twice a day, metoprolol tartrate 50 mg daily, Savaysa 30 mg daily, Lipitor 40 mg at night. - Most recent echocardiogram obtained in September 2023 revealing ejection fraction 42%, moderate MR, moderate TR - Cardiac catheterization history: September 2023 revealing mild coronary artery dis ease with no restenosis. Patient with previous stenting of mid PDA REVIEW OF SYSTEMS: At the time of my exam: CONSTITUTIONAL: Denies fever or chills. HEENT: Denies blurred vision, vision changes, or eye pain. Denies hemoptysis CARDIOVASCULAR: Denies chest pain. Denies orthopnea. Denies PND. Denies palpitations RESPIRATORY: Denies shortness of breath. GASTROINTESTINAL: Denies abdominal pain. Denies nausea or vomiting. HEMATOLOGIC: Denies bleeding disorders. GENITOURINARY: Denies any blood in urine. SKIN: Denies pruitis. Denies rash. PHYSICAL EXAM: VITAL SIGNS: Reviewed. GENERAL: Well-developed in no acute distress. HEENT: Head is normocephalic. Pupils are equal, round. Sclerae anicteric. Mucous membranes of the mouth are moist. Neck supple. No JVD or thyromegaly LUNGS: Respirations even and unlabored. Lungs essentially clear to auscultation bilaterally. HEART: Regular rate and rhythm. S1 and S2 heard. Systolic murmur noted ABDOMEN: Soft. Nondistended. Nontender. EXTREMITIES: Normal range of motion. No clubbing or cyanosis. Peripheral pulses intact. No lower extremity edema NEUROLOGIC: Awake and alert. Oriented x 3. ASSESSMENT: Shortness of breath Acute on chronic heart failure with reduced EF, 42%, currently euvolemic Chest pain, troponin negative x 3 Paroxysmal atrial fibrillation Hypertension Hyperlipidemia Coronary artery disease with previous stenting of the PDA PLAN: An acute coronary event has been ruled out Obtain 2D echo to assess cardiac structure and function Discontinue IV Lasix. Begin oral Lasix 40 mg twice a day Resume home cardiac medications Patient to undergo Lexiscan stress test today Further recommendations pending patient course Nurse practitioner note has been reviewed by physician. Signing provider agrees with the documented findings, assessment, and plan of care documented by ASSEMBLER CHASSIS as a scribe. Past Medical History Past Medical History: Atrial Fibrillation, Heart Failure, Diabetes Mellitus, Eye Disorder, Hyperlipidemia, Osteoarthritis (OA), Pneumonia, Skin Disorder, Vascular Disorder Additional Past Medical History / Comment(s): Chronic Venous Stasis BLE w/ chronic ulceration of the left lower extremity, current small area still left leg, CAD W/ coronary stenting Rt PDA 2013. History of kidney stones. Pacemaker (Brand:ST DAPHNE). HAS CATARACT LT. WOUNDS LLE, USING SILVADENE CREAM. EDEMA BLE. seeing Dr Calderon r/t kidney function. Small wound LLE. History of Any Multi-Drug Resistant Organisms: None Reported Past Surgical History: Cardiac Ablation, Heart Catheterization, Heart Catheterization With Stent, Hysterectomy, Pacemaker, Tubal Ligation Additional Past Surgical History / Comment(s): states has had mult sx on veins left leg, [place] with cardioversion, varicose vein stripping, patient believes 2 cardiac stents, rt cataract, kidney stone sx, LLE surgery with stent and skin grafting. ANEMIA-BLOOD TRANSFUSIONS. Past Anesthesia/Blood Transfusion Reactions: No Reported Reaction Additional Past Anesthesia/Blood Transfusion Reaction / Comment(s): PONV 40 PLUS YEARS AGO, AFTER REMOVAL KIDNEY STONE. Date of Last Stent Placement:: November 2013 Type of Cardiac Device: Permanent Pacemaker Device Placement Date:: 10/30/2017 Past Psychological History: No Psychological Hx Reported Additional Psychological History / Comment(s): Pt's spouse had covid end of summer 2019 and d/t covid 05/22/20. Pt now lives alone. She drives. Smoking Status: Never smoker Past Alcohol Use History: None Reported Additional Past Alcohol Use History / Comment(s): Patient is a lifelong nonsmoker. She denies any medical marijuana, marijuana, street drug or alcohol use. Past Drug Use History: None Reported - Past Family History Father History Unknown: Yes Family Medical History: No Reported History Additional Family Medical History / Comment(s): Aneurysm, passed in 2000. Mother Family Medical History: Cancer Additional Family Medical History / Comment(s): Bladder and has since passed. Medications and Allergies Home Medications Medication Instructions Recorded Confirmed Type Atorvastatin [Lipitor] 40 mg PO HS 10/22/17 09/14/24 History metFORMIN HCL [Glucophage] 850 mg PO TID 10/30/17 09/14/24 History Insulin Glargine,Hum.rec.anlog 10 units SQ DAILY 12/16/17 09/14/24 History [Toujeo Solostar] Ferrous Sulfate [Iron (65 MG 325 mg PO DAILY 01/19/19 09/14/24 History Elemental)] allopurinoL [Zyloprim] 100 mg PO DAILY 03/25/19 09/14/24 History calcitrioL 0.25 mcg PO DAILY 03/25/19 09/14/24 History Sacubitril/Valsartan [Entresto 24 1 tab PO BID 04/13/19 09/14/24 History mg-26 mg Tablet] Metoprolol Tartrate [Lopressor] 50 mg PO DAILY 01/30/21 09/14/24 History Brimonidine Tartrate [Alphagan P 1 drop RIGHT EYE BID 09/14/23 09/14/24 History 0.2% Ophth Soln] Dapagliflozin Propanediol [Farxiga] 10 mg PO DAILY 09/14/23 09/14/24 History Edoxaban Tosylate [Savaysa] 30 mg PO DAILY #30 tab 09/23/23 09/14/24 Rx Aspirin EC [Ecotrin Low Dose] 81 mg PO DAILY 09/14/24 09/14/24 History Cholecalciferol (Vitamin D3) 50 mcg PO DAILY 09/14/24 09/14/24 History [Vitamin D3 (50 Mcg = 2000 Iu)] Dulaglutide [Trulicity] 3 mg SQ SA 09/14/24 09/14/24 History Furosemide [Lasix] 20 mg PO BID@0900,1600 09/14/24 09/14/24 History Silver Sulfadiazine [SSD 1% Cream] 1 applic TOPICAL BID 09/14/24 09/14/24 History amLODIPine [Norvasc] 10 mg PO DAILY 09/14/24 09/14/24 History Allergies Allergy/AdvReac Type Severity Reaction Status Date / Time Iodinated Contrast Media Allergy Severe THROAT Verified 09/14/24 17:00 [Iodinated Contrast Media - SWELLING Oral and] iodine Allergy Severe THROAT Verified 09/14/24 17:00 SWELLING, RASH shellfish derived Allergy Severe THROAT Verified 09/14/24 17:00 SWELLING, RASH cefazolin sodium Allergy Dyspnea Verified 09/14/24 17:00 [From Kefzol] Latex, Natural Rubber Allergy Rash/Hives Verified 09/14/24 17:00 levofloxacin [From Levaquin] Allergy Rash/Hives Verified 09/14/24 17:00 piperacillin sodium Allergy THROAT Verified 09/14/24 17:00 [From Zosyn] SWELL, RASH tazobactam sodium Allergy THROAT Verified 09/14/24 17:00 [From Zosyn] SWELL, RASH verapamil AdvReac Severe Hallucinati Verified 09/14/24 17:00 ons seafood Allergy Severe throat Uncoded 09/14/24 17:00 swelling Physical Exam Vitals: Vital Signs Temp Pulse Pulse Resp BP BP Pulse Ox 09/15/24 07:00 98.3 F 60 16 130/72 96 09/15/24 01:01 98.2 F 60 17 92/52 98 09/14/24 20:45 98.3 F 59 L 18 167/79 95 09/14/24 19:59 60 18 149/65 98 09/14/24 18:57 60 18 159/75 97 09/14/24 16:07 60 18 178/80 96 09/14/24 13:45 61 20 09/14/24 13:15 97.6 F 60 18 166/77 98 Intake and Output 09/14/24 09/15/24 09/15/24 22:59 06:59 14:59 Intake Total 500 Output Total 200 Balance 500 -200 Intake: Oral 500 Output: Urine 200 Other: Voiding Method Toilet # Voids 3 Weight 102.058 kg 101.5 kg Results 09/15/24 04:28 09/15/24 04: Cardiac Enzymes 09/14/24 09/14/24 09/14/24 Range/Units 14:07 14:07 17:13 AST 22 (14-36) U/L Troponin I 0.013 <0.012 (0.000-0.034) ng/mL 09/14/24 Range/Units 20:10 AST (14-36) U/L Troponin I <0.012 (0.000-0.034) ng/mL Coagulation 09/14/24 Range/Units 14:07 PT 13.4 H (10.0-12.5) sec APTT 25.4 (22.0-30.0) sec Lipids 09/15/24 Range/Units 04:28 Triglycerides 159.00 H (0.00-149.00) mg/dL Cholesterol 121.00 (0.00-200.00) mg/dL HDL Cholesterol 39.40 L (40.00-60.00) mg/dL Cholesterol/HDL Ratio 3.07 Ratio CBC 09/14/24 09/15/24 Range/Units 14:07 04:28 WBC 8.12 6.69 (4.50-10.00) 10*3/uL RBC 4.16 3.98 L (4.10-5.20) 10*6/uL Hgb 12.5 12.4 (12.0-15.0) g/dL Hct 37.6 36.2 L (37.2-46.3) % Plt Count 283 321 (140-440) 10*3/uL Comprehensive Metabolic Panel 09/14/24 09/15/24 Range/Units 14:07 04:28 Sodium 143 141 (137-145) mmol/L Potassium 5.1 4.4 (3.5-5.1) mmol/L Chloride 101 101 (98-107) mmol/L Carbon Dioxide 26 23.9 (22-30) mmol/L BUN 41 H 42.7 H (7-17) mg/dL Creatinine 1.42 H 1.6 H (0.52-1.04) mg/dL Glucose 93 123 H (74-99) mg/dL Calcium 9.7 9.2 (8.4-10.2) mg/dL AST 22 (14-36) U/L ALT 12 (4-34) U/L Alkaline Phosphatase 54 (38-126) U/L Total Protein 7.3 (6.3-8.2) g/dL Albumin 4.4 (3.5-5.0) g/dL Current Medications Generic Name Dose Route Start Last Admin Trade Name Ericq PRN Reason Stop Dose Admin Acetaminophen 650 mg 09/15/24 08:45 09/15/24 09:11 Acetaminophen Tab 325 Mg Tab PO 650 mg Q4HR PRN Administration Fever and/ or Pain Allopurinol 100 mg 09/15/24 09:00 09/15/24 09:11 Allopurinol 100 Mg Tab PO 100 mg DAILY LAKEISHA Administration Aminophylline 100 mg 09/15/24 08:46 Aminophylline 500 Mg/20 Ml Vial IV 09/15/24 12:46 ONCE PRN Patient Response Amlodipine Besylate 10 mg 09/15/24 09:00 09/15/24 09:11 Amlodipine 10 Mg Tab PO 10 mg DAILY LAKEISHA Administration Aspirin 81 mg 09/15/24 09:00 09/15/24 09:11 Aspirin 81 Mg PO 81 mg DAILY LAKEISHA Administration Atorvastatin Calcium 40 mg 09/14/24 21:00 09/14/24 22:07 Atorvastatin 40 Mg Tab PO 40 mg HS LAKEISHA Administration Brimonidine Tartrate 1 drops 09/14/24 21:00 09/15/24 09:12 Brimonidine Tartrate 0.2% Drops 5 Ml Btl RIGHT EYE 1 drops BID LAKEISHA Administration Caffeine Citrate 60 mg 09/15/24 08:46 Caffeine Citrate 60 Mg/3 Ml Vial IV 09/15/24 12:46 ONCE PRN Patient Response Calcitriol 0.25 mcg 09/15/24 09:00 09/15/24 09:11 Calcitriol 0.25 Mcg Cap PO 0.25 mcg DAILY LAKEISHA Administration Dapagliflozin 10 mg 09/15/24 09:00 09/15/24 09:11 Dapagliflozin Propanediol 10 Mg Tablet PO 10 mg DAILY LAKEISHA Administration Edoxaban 30 mg 09/15/24 09:00 09/15/24 09:11 Edoxaban Tosylate 30 Mg Tablet PO 30 mg DAILY LAKEISHA Administration Protocol Furosemide 40 mg 09/15/24 09:00 09/15/24 09:11 Furosemide 40 Mg Tab PO 40 mg BID@0900,1600 [facility] Administration Insulin Glargine 10 unit 09/15/24 07:00 Insulin Glargine (Lantus) 100 Unit/Ml Syr SQ DAILY@0700 [facility] Metoprolol Tartrate 50 mg 09/15/24 09:00 09/15/24 09:11 Metoprolol Tartrate 50 Mg Tab PO 50 mg DAILY LAKEISHA Administration Nitroglycerin 0.4 mg 09/14/24 15:49 Nitroglycerin Sl Tabs 0.4 Mg Tab SUBLINGUAL Q5M PRN Chest Pain Regadenoson 0.4 mg 09/15/24 08:46 Regadenoson 0.4 Mg/5 Ml Syringe IV 09/15/24 12:46 ONCE PRN Per Protocol Sacubitril/Valsartan 1 each 09/14/24 21:00 09/15/24 09:11 Sacubitril/Valsartan 24 Mg-26 Mg Tablet PO 1 each BID LAKEISHA Administration Intake and Output 09/14/24 09/15/24 09/15/24 22:59 06:59 14:59 Intake Total 500 Output Total 200 Balance 500 -200 Intake: Oral 500 Output: Urine 200 Other: Voiding Method Toilet # Voids 3 Weight 102.058 kg 101.5 kg 09/15/24 04:28 09/15/24 04:28
[2024-09-15 11:21] LABS: Glucose,Whole Blood 134 mg/dL (70-110)
--- NOTE | 2024-09-15 11:30 | NM ---
EXAMINATION TYPE: NM stress lexiscan cardiolite DATE OF EXAM: 09/15/2024 COMPARISON: NONE CLINICAL INDICATION: Female, 74 years old with history of CP; TECHNIQUE: After the intravenous administration of 10.29 mCi Tc 99m Sestamibi - Cardiolite resting S PECT images acquired 45 minutes post injection. The patient received 0.4mg Lexiscan, 25.7 mCi Tc 99m Sestamibi - Stress images obtained [address] injection FINDINGS: Review of stress and rest SPECT images demonstrates a moderate-sized fixed defect involving the infer olateral wall. This accentuates on stress to involve a greater degree of the apical wall. There also appears to be some focal reversibility along the mid anterolateral wall. Gated analysis shows fragmen tation along the inferolateral wall with an estimated left ventricular ejection fraction of 62 %. TI D is calculated at 0.91, within normal limits. IMPRESSION: 1. Correlate for old inferolateral wall infarct. Scintigraphic findings suggest rachel-infarct ischemia especially towards the apex. 2. Possible additional small area of reversibility along the mid anterolateral wall. [facility], , 09/15/2024 11:28 AM
[2024-09-15] MEDS: INSULIN GLARGINE (LANTUS) 100 UNIT/ML SYR SQ SCH (12:54)
[2024-09-15 16:51] LABS: Glucose,Whole Blood 155 mg/dL (70-110)
--- NOTE | 2024-09-15 17:15 | CA ---
Transthoracic Echo Report Name: Osiris Mendoza Age: 74 Gender: F : 1950 Exam Date: 09/15/2024 10:12 Exam Location: [place] [facility] Ht (in): 66 Wt (lb): 223 Ordering Physician: Bhavani Pringle Attending/Referring Phys: [id number], [employer] Manager Chanda Mac, MADDI Procedure CPT: Indications: CP, LV function Cardiac Hx: Technical Quality: Poor Contrast 1: Definity Total Dose (mL): 2 Contrast 2: Total Dose (mL): MEASUREMENTS (Male / Female) Normal Values 2D ECHO LV Diastolic Diameter PLAX 4.1 cm 4.2 - 5.9 / 3.9 - 5.3 cm LV Systolic Diameter PLAX 3.3 cm IVS Diastolic Thickness 1.7 cm 0.6 - 1.0 / 0.6 - 0.9 cm LVPW Diastolic Thickness 1.6 cm 0.6 - 1.0 / 0.6 - 0.9 cm LV Relative Wall Thickness 0.8 RV Internal Dim ED PLAX 3.9 cm LVOT Diameter 2.0 cm LA Systolic Diameter LX 6.7 cm 3.0 - 4.0 / 2.7 - 3.8 cm LA Volume 144.4 cm??? 18 - 58 / 22 - 52 cm??? LA Volume Index 65.2 cm???/m??? 16 - 28 cm???/m??? M-MODE Aortic Root Diameter MM 3.0 cm LA Systolic Diameter MM 5.9 cm LA Ao Ratio MM 2.0 AV Cusp Separation MM 1.5 cm DOPPLER MV Peak Velocity 188.3 cm/s MV Peak Gradient 14.2 mmHg MV Mean Velocity 104.3 cm/s MV Mean Gradient 5.3 mmHg MV Velocity Time Integral 54.8 cm TR Peak Velocity 311.1 cm/s TR Peak Gradient 38.7 mmHg Right Ventricular Systolic Press 46.3 mmHg FINDINGS Left Ventricle Left ventricular ejection fraction is estimated at 45 -50% Severely increased septal wall thickness. Moderately increased posterior wall thickness. Mildly reduced global left ventricular systolic function. Right Ventricle Moderate right ventricular dilatation. Moderate pulmonary hypertension. Right Atrium Moderate right atrial dilatation. Catheter/pacemaker wire in the right atrial cavity. Left Atrium Severely increased left atrial diameter. Severely increased left atrial volume. Moderately increased left atrial area. Mitral Valve Mild to moderate mitral stenosis, [id number] mitral regurgitation. Mitral valve thickened. Aortic Valve Trileaflet aortic valve. No aortic stenosis. Diffuse thickening (sclerosis) of the aortic valve cusps without reduced excursion. Tricuspid Valve Structurally normal tricuspid valve. Moderate tricuspid regurgitation. No tricuspid stenosis. Pulmonic Valve Structurally normal pulmonic valve. Trace pulmonic regurgitation. No pulmonic stenosis. Pericardium No pericardial or pleural effusion. Aorta Normal size aortic root and proximal ascending aorta. CONCLUSIONS Normal LV size with moderate concentric LVH atypical septal motion and ejection fraction of 45 to 50%. Moderate mitral and tricuspid regurgitation with moderate pulmonary hypertension. No pericardial effusion Previewed by: Dr. Mo Patel MD (Electronically Signed) Final Date: 15 Sep 2024 17:14
[2024-09-15 20:22] LABS: Glucose,Whole Blood 143 mg/dL (70-110)
--- NOTE | 2024-09-16 05:17 | P.PN ---
Subjective Progress Note Date: 09/15/24 Patient is a 74-year-old female with a past medical history of coronary disease with stent placement to mid PDA, permanent atrial fibrillation on anticoagulation with edoxaban, permanent pacemaker placement, valvular heart disease, moderate pulmonary hypertension, chronic CHF with mildly reduced ejecti on fraction 45%, diabetes type 2, chronic venous stasis of the bilateral lower extremity with chronic ulceration of the left lower extremity, osteoarthritis and other medical problems presents to the ER with complaints of mid sternal pressure-like sensation and difficulty in breathing. Patient was seen by her primary care physician and was sent to ER. Denied any radiation of the pain. Mild nausea. No associated vomiting. No headache or dizziness. Denied any recent illnesses. Does have cough without any sputum production. Patient states that she gained some weight and also increased swelling of the lower extremities. Patient does have chronic ulceration of the left lower extremity and swelling. On admission blood pressure 166/77 pulse is 60 respiration 18 and pulse ox 98% on room air. EKG showed electronic ventricular paced rhythm. Chest x-ray showed borderline cardiomegaly. Correlate to exclude mild pulmonary vascular congestion. Laboratory data showed WBC 8.1 hemoglobin 12.5 and platelets 283 INR 1.3 sodium 143 potassium 5.1 chloride 101 bicarb is 26 BUN 41 and creatinine 1.42. Liver enzymes are not elevated. Magnesium 1.8 and troponin 0.013 and proBNP 5350. 09/15/2024 Patient seen in follow-up today with cardiology following underwent stress testing which was abnormal and will be planning for cardiac catheterization tomorrow. IV diuresis has been discontinued elevated kidney functions and recommend gentle hydration follow-up on labs in the a.m. to proceed with catheterization. Patient is afebrile with no reports of chest pain currently or shortness of breath. Will follow-up on labs to monitor kidney functions and await cardiology report. Review of systems: Constitutional: No reports of fatigue, fever, or chills Cardiovascular: No reports of chest pain or palpitations Respiratory: No reports of shortness of breath or cough GI: No reports of nausea, vomiting, or diarrhea : No reports of dysuria or retention Neurovascular: No reports of weakness or numbness All medications have been reviewed PHYSICAL EXAMINATION: Patient is lying in the bed,, no acute distress, awake alert and oriented.. Well-developed, elderly appearing, obese HEENT: Normocephalic. Neck is supple. Pupils reactive. Nostrils clear. Oral cavity is moist. Neck reveals no JVD, carotid bruits, or thyromegaly. CHEST EXAMINATION: Trachea is central. Symmetrical expansion. Bibasilar coarse sounds. Nonlabored breathing.. CARDIAC: Normal S1, S2 with no gallops. Systolic murmur. ABDOMEN: Soft. Bowel sounds normal. No organomegaly. No abdominal bruits. Extremities: Bilateral lower extremity 2+ edema. Chronic venous stasis changes and small ulcer on the left lower extremity. No drainage or purulence noted. No clubbing or cyanosis Neurologically awake, alert, oriented x3 with well-coordinated movements. No gross focal deficits noted Skin: No rash or skin lesions. Psychiatric: Cooperative. Non-suicidal Musculoskeletal: No joint swelling or deformity. Normal range of motion. Assessment: Chest pressure. Ruled out ACS. Abnormal stress test and will undergo cardiac catheterization on 09/16/2024 Acute on chronic CHF with mildly reduced ejection fraction 45% Coronary artery disease with history of stent placement to mid [facility] in 2013 Permanent atrial fibrillation on anticoagulation with the exacerbation History of AV marck ablation with permanent pacemaker placement Moderate pulmonary hypertension Uncontrolled hypertension Hyperlipidemia Diabetes type 2 Obesity with BMI of 36.1 Acute on CKD stage III with baseline creatinine 1.1. Creatinine 1.42 on adm ission Chronic lower extremity bilateral venous stasis with small ulcer on the left DVT prophylaxis patient is already on anticoagulation GI prophylaxis Full code Plan: Patient will be continued on log roper. Serial EKG and troponin x 3. Patient did undergo stress test which was abnormal and cardiology following recommend cardiac catheterization. Patient was on Lasix 20 mg IV Q8. Discontinue IV Lasix for now and follow-up tomorrow for possible cardiac catheterization. Continue with aspirin, statin, Farxiga Entresto and metoprolol. Continue monitoring Accu-Cheks ACHS and continue with insulin sliding scale and regimen. Wound care of the lower extremity ulcer which is chronic. Continue to monitor renal function. Follow-up on repeat labs Await cardiac catheterization report and clearance from cardiology Prognosis is guarded The impression and plan of care has been dictated by Lara Poe, Nurse Practitioner as directed. Dr. Tami MD I have performed a history and examination and MDM of this patient, discussed the same with the dictator, and agree with the dictator's assessment and plan as written ,documented as a scribe. Based on total visit time, I have performed more than 50% of the visit. Objective - Vital Signs Vital signs: Vital Signs Temp 98.1 F 09/16/24 01:48 Pulse 60 09/16/24 01:48 Resp 17 09/16/24 01:48 BP 135/79 09/16/24 01:48 Pulse Ox 98 09/16/24 01:48 FiO2 Intake & Output 09/15/24 09/15/24 09/16/24 06:59 18:59 06:59 Intake Total 500 236 Output Total 200 Balance 500 36 Weight 101.5 kg Intake: Oral 500 236 Output: Urine 200 Other: Voiding Method Toilet Toilet # Voids 3 1 1 - Labs CBC & Chem 7: 09/15/24 04:28 09/15/24 04:28 Labs: Abnormal Lab Results - Last 24 Hours (Table) 09/15/24 09/15/24 09/15/24 Range/Units 04:28 04:28 05:25 RBC 3.98 L (4.10-5.20) X 10*6/uL Hct 36.2 L (37.2-46.3) % RDW 14.9 H (11.5-14.5) % Anion Gap 16.10 H (4.00-12.00) mmol/L BUN 42.7 H (9.0-27.0) mg/dL Creatinine 1.6 H (0.6-1.5) mg/dL Est GFR (CKD-EPI) 34 L (>=60) BUN/Creatinine Ratio 26.69 H (12.00-20.00) Ratio Glucose 123 H (70-110) mg/dL POC Glucose (mg/dL) 121 H (70-110) mg/dL Triglycerides 159.00 H (0.00-149.00) mg/dL HDL Cholesterol 39.40 L (40.00-60.00) mg/dL Vitamin B12 <150.0 L (200.0-944.0) pg/mL 09/15/24 09/15/24 09/15/24 Range/Units 11:19 16:50 20:21 RBC (4.10-5.20) X 10*6/uL Hct (37.2-46.3) % RDW (11.5-14.5) % Anion Gap (4.00-12.00) mmol/L BUN (9.0-27.0) mg/dL Creatinine (0.6-1.5) mg/dL Est GFR (CKD-EPI) (>=60) BUN/Creatinine Ratio (12.00-20.00) Ratio Glucose (70-110) mg/dL POC Glucose (mg/dL) 134 H 155 H 143 H (70-110) mg/dL Triglycerides (0.00-149.00) mg/dL HDL Cholesterol (40.00-60.00) mg/dL Vitamin B12 (200.0-944.0) pg/mL
[2024-09-16 05:51] LABS: Glucose,Whole Blood 159 mg/dL (70-110)
[2024-09-16] MEDS: EDOXABAN TOSYLATE 30 MG TABLET PO SCH (09:08)
[2024-09-16] MEDS: SODIUM CHLORIDE 0.9% 1,000 ML IV SCH (09:09)
[2024-09-16 10:45] LABS: BUN/Creat Ratio 28.94 Ratio (12.00-20.00); Blood Urea Nitrogen 46.3 mg/dL (9.0-27.0); Calcium 9.4 mg/dL (8.7-10.3); Carbon Dioxide 27.2 mmol/L (21.6-31.8); Chloride 100 mmol/L (96-109); Glucose 147 mg/dL (70-110); Potassium 4.2 mmol/L (3.5-5.5); Sodium 141 mmol/L (135-145)
--- NOTE | 2024-09-16 10:45 | P.PN ---
Subjective HISTORY OF PRESENT ILLNESS: This is a 74-year-old female with a past medical history significant for atrial fibrillation, hypertension, hyperlipidemia, diabetes, congestive heart failure, and obesity. Patient follows in the office with Dr. Ralph. We have been asked to see the patient in consultation for chest pain and CHF. Patient examined at the bedside. Patient presented to the hospital yesterday with a chief complaint of shortness of breath. She went to see her PCP Dr. Juarez and was directed to come to the emergency room for further evaluation. She also reports yesterday she felt like something was sitting on her chest. She currently denies any chest pain or pressure. She denies any shortness of breath. Vital signs are stable. DIAGNOSTICS: - EKG reveals ventricular paced rhythm. - Chest xray borderline cardiomegaly. Correlate to exclude mild pulmonary vascular congestion. - Laboratory data: WBC 6.69. Hemoglobin 12.9. Platelet count 321. Sodium 141. Potassium 4.4. BUN 42. Creatinine 1.6. Troponin negative x 3. proBNP 5350. - Current home cardiac medications include aspirin 81 mg daily, Farxiga 10 mg daily, Entresto 24-26 mg twice a day, amlodipine 10 mg daily, Lasix 20 mg twice a day, metoprolol tartrate 50 mg daily, Savaysa 30 mg daily, Lipitor 40 mg at night. - Most recent echocardiogram obtained in September 2023 revealing ejection fraction 42%, moderate MR, moderate TR - Cardiac catheterization history: September 2023 revealing mild coronary artery disease with no restenosis. Patient with previous stenting of mid PDA Addendum entered and electronically signed by Bhavani Pringle NP-C 09/15/24 12:05: Patient's creatinine increased to 1.6 today Will hold Entresto, Lasix, and Farxiga for doses tonight and tomorrow morning. May resume tomorrow evening. Also hold Savaysa as Lexiscan stress test was abnormal revealing rachel-infarct ischemia towards the apex and small area reversibility along the mid anterior lateral wall Possible cardiac catheterization tomorrow with Dr. Ralph pending repeat results of BMP Addendum entered and electronically signed by Bhavani Pringle NP-C 09/15/24 13:01: Case discussed with Dr. Ralph No plans for cardiac cath tomorrow Patient may receive Savaysa tomorrow Continue to hold Entresto, Lasix, and Farxiga for doses tonight and tomorrow morning Repeat BMP in AM If kidney function improves, will make a decision regarding cardiac cath versus medical management 09/16/2024 Patient examined this morning at bedside. Patient currently denies any chest pain or pressure. She denies any shortness of breath. Vital signs are stable. Telemetry reveals sinus mechanism. Labs from this morning are currently pending. Echocardiogram completed revealing ejection fraction 45 to 50%, moderate pulmonary hypertension, mild to moderate MR, and moderate TR. PHYSICAL EXAM: VITAL SIGNS: Reviewed. GENERAL: Well-developed in no acute distress. HEENT: Head is normocephalic. Pupils are equal, round. Sclerae anicteric. Mucous membranes of the mouth are moist. Neck supple. No JVD or thyromegaly LUNGS: Respirations even and unlabored. Lungs essentially clear to auscultation bilaterally. HEART: Regular rate and rhythm. S1 and S2 heard. Systolic murmur noted ABDOMEN: Soft. Nondistended. Nontender. EXTREMITIES: Normal range of motion. No clubbing or cyanosis. Peripheral pulses intact. No lower extremity edema NEUROLOGIC: Awake and alert. Oriented x 3. ASSESSMENT: Shortness of breath Acute on chronic heart failure with reduced EF, 42%, currently euvolemic Chest pain, troponin negative x 3, status post abnormal Lexiscan Paroxysmal atrial fibrillation Hypertension Hyperlipidemia Coronary artery disease with previous stenting of the PDA PLAN: Entresto, Lasix, and Farxiga held for today Continue additional cardiac medications Begin normal saline at 50 cc an hour Awaiting BMP results from this a.m. Possible cardiac catheterization tomorrow pending labs. Hold Savaysa tomorrow morning Further recommendations pending patient course Nurse practitioner note has been reviewed by physician. Signing provider agrees with the documented findings, assessment, and plan of care documented by [employer] as a scribe. Objective - Vital Signs Vital signs: Vital Signs Temp 98.4 F 09/16/24 07:00 Pulse 61 09/16/24 07:00 Resp 16 09/16/24 07:00 BP 152/81 09/16/24 07:00 Pulse Ox 98 09/16/24 07:00 FiO2 Intake & Output 09/15/24 09/16/24 09/16/24 18:59 06:59 18:59 Intake Total 236 Output Total 200 Balance 36 Weight 101.7 kg Intake: Oral 236 Output: Urine 200 Other: Voiding Method Toilet # Voids 1 3 - Labs CBC & Chem 7: 09/15/24 04:28 09/16/24 06:59 Labs: Abnormal Lab Results - Last 24 Hours (Table) 09/15/24 09/15/24 09/15/24 Range/Units 11:19 16:50 20:21 POC Glucose (mg/dL) 134 H 155 H 143 H (70-110) mg/dL 09/16/24 Range/Units 05:49 POC Glucose (mg/dL) 159 H (70-110) mg/dL
[2024-09-16 11:07] LABS: Glucose,Whole Blood 230 mg/dL (70-110)
[2024-09-16] MEDS ORDERED: FUROSEMIDE 40 MG TAB PO SCH (16:00)
[2024-09-16 16:51] LABS: Glucose,Whole Blood 116 mg/dL (70-110)
[2024-09-16 19:46] VITALS: PULSE 60
[2024-09-16 20:05] LABS: Glucose,Whole Blood 171 mg/dL (70-110)
[2024-09-16] MEDS: SACUBITRIL/VALSARTAN 24 MG-26 MG TABLET PO SCH (21:37)
[2024-09-17 06:39] LABS: African American GFR (CKD) 41 (>60 ml/min/1.73 sqM); Anion Gap 11 mmol/L; Blood Urea Nitrogen 44 mg/dL (7-17); Calcium 9.3 mg/dL (8.4-10.2); Carbon Dioxide 25 mmol/L (22-30); Chloride 102 mmol/L (98-107); Glucose 128 mg/dL (74-99); Non-African American GFR(CKD) 35 (>60 ml/min/1.73 sqM); Sodium 138 mmol/L (137-145)
[2024-09-17 06:39] LABS: Glucose,Whole Blood 128 mg/dL (70-110)
[2024-09-17 07:57] VITALS: BP 108/62; RESP 17; TEMP 97.9
[2024-09-17] MEDS: DAPAGLIFLOZIN PROPANEDIOL 10 MG TABLET PO SCH (08:53)
[2024-09-17] MEDS: FUROSEMIDE 40 MG TAB PO SCH (08:53)
[2024-09-17] MEDS ORDERED: EDOXABAN TOSYLATE 30 MG TABLET PO SCH (09:00)
--- NOTE | 2024-09-17 09:29 | P.PN ---
Subjective Progress Note Date: 09/16/24 Patient is a 74-year-old female with a past medical history of coronary disease with stent placement to mid PDA, permanent atrial fibrillation on anticoagulation with edoxaban, permanent pacemaker placement, valvular heart disease, moderate pulmonary hypertension, chronic CHF with mildly reduced ejecti on fraction 45%, diabetes type 2, chronic venous stasis of the bilateral lower extremity with chronic ulceration of the left lower extremity, osteoarthritis and other medical problems presents to the ER with complaints of mid sternal pressure-like sensation and difficulty in breathing. Patient was seen by her primary care physician and was sent to ER. Denied any radiation of the pain. Mild nausea. No associated vomiting. No headache or dizziness. Denied any recent illnesses. Does have cough without any sputum production. Patient states that she gained some weight and also increased swelling of the lower extremities. Patient does have chronic ulceration of the left lower extremity and swelling. On admission blood pressure 166/77 pulse is 60 respiration 18 and pulse ox 98% on room air. EKG showed electronic ventricular paced rhythm. Chest x-ray showed borderline cardiomegaly. Correlate to exclude mild pulmonary vascular congestion. Laboratory data showed WBC 8.1 hemoglobin 12.5 and platelets 283 INR 1.3 sodium 143 potassium 5.1 chloride 101 bicarb is 26 BUN 41 and creatinine 1.42. Liver enzymes are not elevated. Magnesium 1.8 and troponin 0.013 and proBNP 5350. 09/15/2024 Patient seen in follow-up today with cardiology following underwent stress testing which was abnormal and will be planning for cardiac catheterization tomorrow. IV diuresis has been discontinued elevated kidney functions and recommend gentle hydration follow-up on labs in the a.m. to proceed with catheterization. Patient is afebrile with no reports of chest pain currently or shortness of breath. Will follow-up on labs to monitor kidney functions and await cardiology report. 09/16/2024 Patient is seen in follow-up this morning with cardiology following and concerns of creatinine level being 1.6 with diuretics including Farxiga also being held and recommending gentle hydration of normal saline at 50 mL/h and follow-up repeat labs in a.m. to discuss if requiring cardiac catheterization or if this may be done outpatient. Patient reports intermittent episodes of chest pain but has mostly resolved. Patient reports she did have an episode of feeling diaphoretic and weak this morning and blood sugars have been uncontrolled while here. Patient reports she is not on any diabetic diet and concerned because blood sugars have been mildly elevated. Patient is continued on insulin regimen and will continue. Patient will be made n.p.o. again this evening and tentatively scheduled for possible cardiac catheterization. Review of systems: Constitutional: No reports of fatigue, fever, or chills Cardiovascular: No reports of chest pain or palpitations Respiratory: No reports of shortness of breath or cough GI: No reports of nausea, vomiting, or diarrhea : No reports of dysuria or retention Neurovascular: No reports of weakness or numbness All medications have been reviewed PHYSICAL EXAMINATION: Patient is lying in the bed,, no acute distress, awake alert and oriented.. Well-developed, elderly appearing, obese HEENT: Normocephalic. Neck is supple. Pupils reactive. Nostrils clear. Oral cavity is moist. Neck reveals no JVD, carotid bruits, or thyromegaly. CHEST EXAMINATION: Trachea is central. Symmetrical expansion. Bibasilar coarse sounds. Nonlabored breathing.. CARDIAC: Normal S1, S2 with no gallops. Systolic murmur. ABDOMEN: Soft. Bowel sounds normal. No organomegaly. No abdominal bruits. Extremities: Bilateral lower extremity 1+ edema. Chronic venous stasis changes and small ulcer on the left lower extremity. No drainage or purulence noted. No clubbing or cyanosis Neurologically awake, alert, oriented x3 with well-coordinated movements. No gross focal deficits noted Skin: No rash or skin lesions. Psychiatric: Cooperative. Non-suicidal Musculoskeletal: No joint swelling or deformity. Normal range of motion. Assessment: Chest pressure. Ruled out ACS. Abnormal stress test and will possibly undergo cardiac catheterization on 09/17/2024 Acute on chronic CHF with mildly reduced ejection fraction 45% Coronary artery disease with history of stent placement to mid PDA in 2013 Permanent atrial fibrillation on anticoagulation with the exacerbation History of AV marck ablation with permanent pacemaker placement Moderate pulmonary hypertension Uncontrolled hypertension Hyperlipidemia Diabetes type 2 Obesity with BMI of 36.1 Acute on CKD stage III with baseline creatinine 1.1. 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 Serial EKG and troponin x 3. Patient did undergo stress test which was abnormal and cardiology following recommend cardiac catheterization. Cardiology reevaluated and creatinine remains 1.6 and recommends gentle hydration overnight with repeat labs and possible consideration of cardiac catheterization. Patient may need outpatient follow-up with repeat cardiac catheterization per Dr. Ralph her primary medicare contact specialist. Continue monitoring Accu-Cheks ACHS and continue with insulin sliding scale and regimen. Recommend consistent carb diet as patient was placed on heart healthy diet. Wound care of the lower extremity ulcer which is chronic. No active infection noted and Curlex is dry and intact Continue to monitor renal function. Follow-up on repeat labs. Creatinine remains 1.6 and will be given gentle hydration with normal saline and follow-up on repeat labs Await cardiac catheterization report and clearance from cardiology Prognosis is guarded Possible discharge planning in the next 24 to 48 hours once cleared by cardiology The impression and plan of care has been dictated by Lara Poe, Nurse Practitioner as directed. Dr. Tami MD I have performed a history and examination and MDM of this patient, discussed the same with the dictator, and agree with the dictator's assessment and plan as written ,documented as a scribe. Based on total visit time, I have performed more than 50% of the visit. Objective - Vital Signs Vital signs: Vital Signs Temp 98.4 F 09/16/24 07:00 Pulse 61 09/16/24 07:00 Resp 16 09/16/24 07:00 BP 152/81 09/16/24 07:00 Pulse Ox 98 09/16/24 07:00 FiO2 Intake & Output 09/15/24 09/16/24 09/16/24 18:59 06:59 18:59 Intake Total 236 Output Total 200 Balance 36 Weight 101.7 kg Intake: Oral 236 Output: Urine 200 Other: Voiding Method Toilet # Voids 1 3 - Labs CBC & Chem 7: 09/15/24 04:28 09/17/24 05:22 Labs: Abnormal Lab Results - Last 24 Hours (Table) 09/15/24 09/15/24 09/15/24 Range/Units 11:19 16:50 20:21 Anion Gap (4.00-12.00) mmol/L BUN (9.0-27.0) mg/dL Creatinine (0.6-1.5) mg/dL Est GFR (CKD-EPI) (>=60) BUN/Creatinine Ratio (12.00-20.00) Ratio Glucose (70-110) mg/dL POC Glucose (mg/dL) 134 H 155 H 143 H (70-110) mg/dL 09/16/24 09/16/24 Range/Units 05:49 06:59 Anion Gap 13.80 H (4.00-12.00) mmol/L BUN 46.3 H (9.0-27.0) mg/dL Creatinine 1.6 H (0.6-1.5) mg/dL Est GFR (CKD-EPI) 34 L (>=60) BUN/Creatinine Ratio 28.94 H (12.00-20.00) Ratio Glucose 147 H (70-110) mg/dL POC Glucose (mg/dL) 159 H (70-110) mg/dL
[2024-09-17] MEDS: EDOXABAN TOSYLATE 30 MG TABLET PO SCH (09:42)
--- NOTE | 2024-09-17 11:07 | P.PN ---
Subjective HISTORY OF PRESENT ILLNESS: This is a 74-year-old female with a past medical history significant for atrial fibrillation, hypertension, hyperlipidemia, diabetes, congestive heart failure, and obesity. Patient follows in the office with Dr. Ralph. We have been asked to see the patient in consultation for chest pain and CHF. Patient examined at the bedside. Patient presented to the hospital yesterday with a chief complaint of shortness of breath. She went to see her PCP Dr. Juarez and was directed to come to the emergency room for further evaluation. She also reports yesterday she felt like something was sitting on her chest. She currently denies any chest pain or pressure. She denies any shortness of breath. Vital signs are stable. DIAGNOSTICS: - EKG reveals ventricular paced rhythm. - Chest xray borderline cardiomegaly. Correlate to exclude mild pulmonary vascular congestion. - Laboratory data: WBC 6.69. Hemoglobin 12.9. Platelet count 321. Sodium 141. Potassium 4.4. BUN 42. Creatinine 1.6. Troponin negative x 3. proBNP 5350. - Current home cardiac medications include aspirin 81 mg daily, Farxiga 10 mg daily, Entresto 24-26 mg twice a day, amlodipine 10 mg daily, Lasix 20 mg twice a day, metoprolol tartrate 50 mg daily, Savaysa 30 mg daily, Lipitor 40 mg at night. - Most recent echocardiogram obtained in September 2023 revealing ejection fraction 42%, moderate MR, moderate TR - Cardiac catheterization history: September 2023 revealing mild coronary artery disease with no restenosis. Patient with previous stenting of mid PDA Addendum entered and electronically signed by Bhavani Pringle NP-C 09/15/24 12:05: Patient's creatinine increased to 1.6 today Will hold Entresto, Lasix, and Farxiga for doses tonight and tomorrow morning. May resume tomorrow evening. Also hold Savaysa as Lexiscan stress test was abnormal revealing rachel-infarct ischemia towards the apex and small area reversibility along the mid anterior lateral wall Possible cardiac catheterization tomorrow with Dr. Ralph pending repeat results of BMP Addendum entered and electronically signed by Bhavani Pringle NP-C 09/15/24 13:01: Case discussed with Dr. Ralph No plans for cardiac cath tomorrow Patient may receive Savaysa tomorrow Continue to hold Entresto, Lasix, and Farxiga for doses tonight and tomorrow morning Repeat BMP in AM If kidney function improves, will make a decision regarding cardiac cath versus medical management 09/16/2024 Patient examined this morning at bedside. Patient currently denies any chest pain or pressure. She denies any shortness of breath. Vital signs are stable. Telemetry reveals sinus mechanism. Labs from this morning are currently pending. Echocardiogram completed revealing ejection fraction 45 to 50%, moderate pulmonary hypertension, mild to moderate MR, and moderate TR. 09/17/2024 Patient examined this morning at bedside. Patient denies any further episodes of chest pain or pressure. Denies any shortness of breath. Vital signs are stable. Creatinine 1.48 today. PHYSICAL EXAM: VITAL SIGNS: Reviewed. GENERAL: Well-developed in no acute distress. HEENT: Head is normocephalic. Pupils are equal, round. Sclerae anicteric. Mucous membranes of the mouth are moist. Neck supple. No JVD or thyromegaly LUNGS: Respirations even and unlabored. Lungs essentially clear to auscultation bilaterally. HEART: Regular rate and rhythm. S1 and S2 heard. Systolic murmur noted ABDOMEN: Soft. Nondistended. Nontender. EXTREMITIES: Normal range of motion. No clubbing or cyanosis. Peripheral pulses intact. No lower extremity edema NEUROLOGIC: Awake and alert. Oriented x 3. ASSESSMENT: Shortness of breath Acute on chronic heart failure with reduced EF, 42%, currently euvolemic Chest pain, troponin negative x 3, status post abnormal Lexiscan Paroxysmal atrial fibrillation Hypertension Hyperlipidemia Coronary artery disease with previous stenting of the PDA PLAN: Continue current cardiac medications including amlodipine, aspirin, Lipitor, Farxiga, Savaysa, Lasix, metoprolol, and Entresto Will continue with medical management at this time. Patient was evaluated by Dr. Ralph with no plans for cardiac catheterization. Patient may be discharged home today and follow-up in the office with Dr. Ralph Patient to have BMP performed in 1 week. Prescription given to patient this morning. Nurse practitioner note has been reviewed by physician. Signing provider agrees with the documented findings, assessment, and plan of care documented by [employer] as a scribe. Objective - Vital Signs Vital signs: Vital Signs Temp 97.9 F 09/17/24 07:00 Pulse 60 09/17/24 07:00 Resp 17 09/17/24 07:00 BP 108/62 09/17/24 07:00 Pulse Ox 96 09/17/24 07:00 FiO2 Intake & Output 09/16/24 09/17/24 09/17/24 18:59 06:59 18:59 Intake Total 200 454 Output Total 4 Balance 196 454 Weight 87.5 kg Intake: Intake, IV Titration 200 Amount Sodium Chloride 0.9% 1, 200 000 ml @ 50 mls/hr IV . Q20H [facility] Rx#:[id number] Oral 454 Output: Urine 4 Other: Voiding Method Toilet # Voids 3 - Labs CBC & Chem 7: 09/15/24 04:28 09/17/24 05:22 Labs: Abnormal Lab Results - Last 24 Hours (Table) 09/16/24 09/16/24 09/16/24 Range/Units 11:05 16:49 20:04 BUN (7-17) mg/dL Creatinine (0.52-1.04) mg/dL Glucose (74-99) mg/dL POC Glucose (mg/dL) 230 H 116 H 171 H (70-110) mg/dL 09/17/24 09/17/24 Range/Units 05:22 06:38 BUN 44 H (7-17) mg/dL Creatinine 1.48 H (0.52-1.04) mg/dL Glucose 128 H (74-99) mg/dL POC Glucose (mg/dL) 128 H (70-110) mg/dL
[2024-09-18] MEDS ORDERED: EDOXABAN TOSYLATE 30 MG TABLET PO SCH (09:00)
--- NOTE | 2024-09-27 23:57 | P.DS ---
Providers Date of admission: 09/14/24 15:51 Expected date of discharge: 09/17/24 Attending physician: Huan Stahl MD Consults: 09/14/24 15:49 Consult Physician Urgent Consulting Provider: [facility] Consult Reason/Comments: Chest pain, pulmonary edema Do you want consulting provider notified?: Yes Primary care physician: Edgardo Juarez Hospital Course: Final diagnosis Chest pressure. Ruled out ACS. Abnormal stress test and will follow-up outpatient for cardiac catheterization Acute on chronic CHF with mildly reduced ejection fraction 45% Coronary artery disease with history of stent placement to mid PDA in 2013 Permanent atrial fibrillation on anticoagulation with the exacerbation History of AV marck ablation with permanent pacemaker placement Moderate pulmonary hypertension Uncontrolled hypertension Hyperlipidemia Diabetes type 2 Obesity with BMI of 36.1 Acute on CKD stage III with baseline creatinine 1.1. Creatinine 1.42 on admission Chronic lower extremity bilateral venous stasis with small ulcer on the left DVT prophylaxis patient is already on anticoagulation GI prophylaxis Full code Discharge disposition Patient is being discharged in a stable condition with guarded prognosis to home. Patient will follow-up with Dr. Juarez in the outpatient setting upon discharge. Patient is to continue with current medications and outpatient follow-up with cardiology as scheduled. Total time taken is greater than 35 minutes. Hospital course This is a 74-year-old female who was recently admitted with chest pain and chest pressure. ACS ruled out and patient underwent stress testing which was abnormal and discussion was had about possible cardiac catheterization with cardiology following closely kidney functions mildly elevated and creatinine elevated recommending gentle hydration and adjustments to medications and outpatient follow-up to discuss with primary contracting officer regarding possible cardiac catheterization. Patient reports to feeling improved and having no further episodes of chest pain. Please refer to cardiology consultation notes for further HPI. Currently no reports of chest pain, shortness of breath, or palpit ations. Patient is afebrile. No reports of nausea or vomiting and patient is tolerating diet. Patient will be discharged home today. Guarded prognosis Physical exam: Gen: This is a 74-year-old female who is awake, alert and oriented x 3, well- developed, elderly appearing, obese HEENT: Head is atraumatic, normocephalic. Pupils equal, round. Sclerae is anicteric. NECK: Supple. No JVD. No lymphadenopathy. No thyromegaly. LUNGS: Diminished breath sounds bilaterally otherwise clear to auscultation. No wheezes or rhonchi. No intercostal retractions. HEART: S1, S2 are muffled ABDOMEN: Soft. Obese bowel sounds are present. No masses. No tenderness. EXTREMITIES: No pedal edema. No calf tenderness. NEUROLOGICAL: Patient is awake, alert and oriented x3. Cranial nerves 2 through 12 are grossly intact. Please refer to medication reconciliation sheet for a list of medications. The impression and plan of care has been dictated by Lara Poe, Nurse Practitioner as directed. Dr. Tami MD I have performed a history and examination and MDM of this patient, discussed the same with the dictator, and agree with the dictator's assessment and plan as written ,documented as a scribe. Based on total visit time, I have performed more than 50% of the visit. Patient Condition at Discharge: Fair Plan - Discharge Summary New Discharge Prescriptions: New Acetaminophen Tab [Tylenol] 650 mg PO Q4HR PRN tab PRN Reason: Fever And/ Or Pain Furosemide [Lasix] 40 mg PO BID@0900,1600 #60 tab Continue Atorvastatin [Lipitor] 40 mg PO HS metFORMIN HCL [Glucophage] 850 mg PO TID Insulin Glargine,Hum.rec.anlog [Toujeo Solostar] 10 units SQ DAILY Ferrous Sulfate [Iron (65 MG Elemental)] 325 mg PO DAILY allopurinoL [Zyloprim] 100 mg PO DAILY calcitrioL 0.25 mcg PO DAILY Sacubitril/Valsartan [Entresto 24 mg-26 mg Tablet] 1 tab PO BID Metoprolol Tartrate [Lopressor] 50 mg PO DAILY Brimonidine Tartrate [Alphagan P 0.2% Ophth Soln] 1 drop RIGHT EYE BID Edoxaban Tosylate [Savaysa] 30 mg PO DAILY #30 tab Silver Sulfadiazine [SSD 1% Cream] 1 applic TOPICAL BID Dulaglutide [Trulicity] 3 mg SQ SA Aspirin EC [Ecotrin Low Dose] 81 mg PO DAILY Dapagliflozin Propanediol [Farxiga] 10 mg PO DAILY amLODIPine [Norvasc] 10 mg PO DAILY Cholecalciferol (Vitamin D3) [Vitamin D3 (50 Mcg = 2000 Iu)] 50 mcg PO DAILY Discontinued Furosemide [Lasix] 20 mg PO BID@0900,1600 Discharge Medication List Atorvastatin [Lipitor] 40 mg PO HS 10/22/17 [History] metFORMIN HCL [Glucophage] 850 mg PO TID 10/30/17 [History] Insulin Glargine,Hum.rec.anlog [Toujeo Solostar] 10 units SQ DAILY 12/16/17 [History] Ferrous Sulfate [Iron (65 MG Elemental)] 325 mg PO DAILY 01/19/19 [History] allopurinoL [Zyloprim] 100 mg PO DAILY 03/25/19 [History] calcitrioL 0.25 mcg PO DAILY 03/25/19 [History] Sacubitril/Valsartan [Entresto 24 mg-26 mg Tablet] 1 tab PO BID 04/13/19 [History] Metoprolol Tartrate [Lopressor] 50 mg PO DAILY 01/30/21 [History] Brimonidine Tartrate [Alphagan P 0.2% Ophth Soln] 1 drop RIGHT EYE BID 09/14/23 [History] Dapagliflozin Propanediol [Farxiga] 10 mg PO DAILY 09/14/23 [History] Edoxaban Tosylate [Savaysa] 30 mg PO DAILY #30 tab 09/23/23 [Rx] Aspirin EC [Ecotrin Low Dose] 81 mg PO DAILY 09/14/24 [History] Cholecalciferol (Vitamin D3) [Vitamin D3 (50 Mcg = 2000 Iu)] 50 mcg PO DAILY 09/14/24 [History] Dulaglutide [Trulicity] 3 mg SQ SA 09/14/24 [History] Silver Sulfadiazine [SSD 1% Cream] 1 applic TOPICAL BID 09/14/24 [History] amLODIPine [Norvasc] 10 mg PO DAILY 09/14/24 [History] Acetaminophen Tab [Tylenol] 650 mg PO Q4HR PRN tab 09/17/24 [Rx] Furosemide [Lasix] 40 mg PO BID@0900,1600 #60 tab 09/17/24 [Rx] Follow up Appointment(s)/Referral(s): Edgardo Juarez MD [Primary Care Provider] - 1-2 days Otis Ralph MD [STAFF PHYSICIAN] - 1 Week (office will call with appointment) Ambulatory/Diagnostic Orders: Basic Metabolic Panel [LAB.AMB] Time Frame: 3 Days, Location: None Selected Patient Instructions/Handouts: Chest Pain (DC) Activity/Diet/Wound Care/Special Instructions: Activity limited until follow-up Follow-up with primary care provider on discharge Continue taking medications as prescribed Follow-up with your contracting officer Dr. Ralph outpatient Discharge Disposition: HOME SELF-CARE
== END 2024-09-17 12:19 | disposition home or self-care (01) ==
LOC: EC 13:08 → 6NMEDSUR 15:51
PROVIDERS: ADMIT Internal Medicine; ATTEND Internal Medicine
DX: R07.89 Other chest pain (principal); R94.39 Abnormal result of other cardiovascular function study; I13.0 Hypertensive heart and chronic kidney disease with heart failure and stage 1 through stage 4 chronic kidney disease, or unspecified chronic kidney disease; I50.23 Acute on chronic systolic (congestive) heart failure; N17.9 Acute kidney failure, unspecified; N18.30 Chronic kidney disease, stage 3 unspecified; E11.22 Type 2 diabetes mellitus with diabetic chronic kidney disease; I48.21 Permanent atrial fibrillation; I08.1 Rheumatic disorders of both mitral and tricuspid valves; E11.65 Type 2 diabetes mellitus with hyperglycemia; I27.20 Pulmonary hypertension, unspecified; I87.8 Other specified disorders of veins; L97.929 Non-pressure chronic ulcer of unspecified part of left lower leg with unspecified severity; M19.90 Unspecified osteoarthritis, unspecified site; E78.5 Hyperlipidemia, unspecified; E66.9 Obesity, unspecified; Z68.36 Body mass index [BMI] 36.0-36.9, adult; L03.119 Cellulitis of unspecified part of limb; Z79.01 Long term (current) use of anticoagulants; Z79.82 Long term (current) use of aspirin; Z79.84 Long term (current) use of oral hypoglycemic drugs; Z79.4 Long term (current) use of insulin; Z79.899 Other long term (current) drug therapy; Z88.0 Allergy status to penicillin; Z88.1 Allergy status to other antibiotic agents; Z91.041 Radiographic dye allergy status; Z91.040 Latex allergy status; Z91.013 Allergy to seafood; Z88.8 Allergy status to other drugs, medicaments and biological substances; Z91.048 Other nonmedicinal substance allergy status; Z95.5 Presence of coronary angioplasty implant and graft; Z95.0 Presence of cardiac pacemaker
CPT/HCPCS: 96376; 96374; 99285; 36415; 93005; 93017; 93306; 83880; 80061; 80053; 80048 ×3; 82607; 83735; 84484; 85025 ×2; 85610; 85730; 71046; 78452; G0378 ×4; A9500; Q9957; J2785; J1938 ×2